=== PATIENT | female | born 1960 | race Caucasian/White ===

== ENCOUNTER 2023-06-04 08:01 | Emergency (ER) | payer BC, SELFPAY ==
[2023-06-04 08:09] VITALS: BP 190/110; PULSE 68; RESP 20; O2SAT 97; BMI 25.0
--- NOTE | 2023-06-04 08:19 | ED.EYEPROB1 ---
HPI - Eye Problem General Chief complaint: Eye Problems Stated complaint: EYE INFECTION , RIGHT EYE Time Seen by Provider: 06/04/23 08:15 Source: patient Mode of arrival: walk-in Limitations: no limitations History of Present Illness HPI Narrative: 63-year-old female presents for redness and drainage from the right eye. No trauma or foreign body. She was around her grandchildren recently. No symptoms in the left eye. Her eye was matted shut yesterday morning when she woke up. Related Data Previous Rx's Medication Instructions Recorded sulfacetamide sodium 10 % eye drops 2 drp ophthalmic (eye) Q4H #15 mL 06/04/23 Allergies Allergy/AdvReac Type Severity Reaction Status Date / Time No Known Drug Allergies Allergy Verified 06/04/23 08:09 Review of Systems ROS Narrative A ten point review of systems is negative except as noted above. PFSH PFSH Social History Smoking status: Heavy tobacco smoker Exam Narrative Exam Narrative: Nurses note and vital signs reviewed and patient is not hypoxic. General: The patient appears well and in no apparent distress. Patient is resting comfortably on cart. Skin: Warm, dry, no pallor noted. There is no rash noted. Head: Normocephalic, atraumatic Eye: left eye appears normal. Right conjunctiva is injected and she has a small amount of drainage. Extraocular movements are intact. Ears, Nose, Mouth, and Throat: oral mucosa is moist. Nares patent. Cardiovascular: Regular Rate and Rhythm Respiratory: Patient is in no distress, no accessory muscle use, lungs are clear to auscultation, no wheezing, rales or rhonchi Back: non-tender GI: nontender Musculoskeletal: no joint swelling Neurological: A&O, normal speech Psychiatric: Cooperative Constitutional Vital Signs, click to edit/add: Last Vital Signs Pulse 68 06/04/23 08:09 Resp 20 06/04/23 08:09 BP 190/110 H 06/04/23 08:09 Pulse Ox 97 06/04/23 08:09 O2 Del Method Room Air 06/04/23 08:09 Course Vital Signs Vital signs: Vital Signs Pulse Rate 68 06/04/23 08:09 Respiratory Rate 20 06/04/23 08:09 Blood Pressure 190/110 H 06/04/23 08:09 Pulse Oximetry 97 06/04/23 08:09 Oxygen Delivery Method Room Air 06/04/23 08:09 Pulse Rate 68 06/04/23 08:09 Respiratory Rate 20 06/04/23 08:09 Blood Pressure 190/110 H 06/04/23 08:09 Pulse Oximetry 97 06/04/23 08:09 Oxygen Delivery Method Room Air 06/04/23 08:09 MDM - Eye Problem MDM Narrative Medical decision making narrative: my clinical impressions that she has conjunctivitis. Treatment diagnosis and follow-up were discussed with the patient. Differential Diagnosis Differential diagnosis: Likely corneal abrasion, conjunctivitis, hyphema and subconjunctival hemorrhage Discharge Plan Discharge Chief Complaint: Eye Problems Clinical Impression: Bacterial conjunctivitis Patient Disposition: Home, Self-Care Time of Disposition Decision: 08:18 Condition: Good Mode of Transportation: Private Vehicle Prescriptions / Home Meds: New sulfacetamide sodium 10 % drops 2 drp ophthalmic (eye) Q4H Qty: 15 0RF Stand Alone Forms: Portal Instructions Referrals: Physician,Non-Staff, MD [Primary Care Provider] - 1 week
== END 2023-06-04 08:36 | disposition home or self-care (01) ==
PROVIDERS: Emergency Provider Emergency Medicine
DX: H10.9 Unspecified conjunctivitis (principal); F17.210 Nicotine dependence, cigarettes, uncomplicated
CPT/HCPCS: 99282

== ENCOUNTER 2023-09-26 06:58 | Outpatient (OUT) | payer BC, SELFPAY ==
[2023-09-26 09:42] LABS: Basophils Percent Auto 0.7 % (0.2-2.0); Eosinophils Absolute Auto 0.1 10^3/uL (0.0-0.7); Eosinophils Percent Auto 1.3 % (0.9-7.0); Hematocrit 41.5 % (36.0-48.0); Hemoglobin 14.4 g/dL (12.0-16.0); Immature Granulocytes Abs Auto 0.01 10^3/uL (0.00-0.03); Immature Granulocytes Pct Auto 0.2 % (0.0-0.5); Lymphocytes Absolute Auto 2.5 10^3/uL (1.2-3.8); Mean Corpuscular HGB Conc 34.7 g/dL (29.9-35.2); Mean Corpuscular Hemoglobin 31.8 pg (26.7-34.0); Mean Corpuscular Volume 91.6 fL (81.0-99.0); Mean Platelet Volume 10.8 fL (9.5-13.5); Monocytes Absolute Auto 0.3 10^3/uL (0.3-0.8); Monocytes Percent Auto 6.2 % (1.7-12.0); Neutrophils Absolute Auto 2.5 10^3/uL (1.4-6.5); Neutrophils Percent Auto 45.6 % (43.0-75.0); Platelet Count 190 10^3/uL (150-450); Red Blood Count 4.53 10^6/uL (4.20-5.40); Red Cell Distribution Width 12.3 % (11.0-15.0); White Blood Count 5.5 10^3/uL (4.0-11.0)
[2023-09-26 10:19] LABS: Bilirubin Urine NEGATIVE (NEGATIVE); Blood Urine NEGATIVE (NEGATIVE); Clarity Urine CLEAR (CLEAR); Color Urine YELLOW (YELLOW); Glucose Urine UA NEGATIVE (NEGATIVE); Ketones Urine NEGATIVE (NEGATIVE); Leukocyte Esterase Urine NEGATIVE (NEGATIVE); Nitrite Urine NEGATIVE (NEGATIVE); Protein Urine 30 mg/dL (NEG/TRACE); Specific Gravity Urine 1.025 (1.005-1.025); Urobilinogen Urine 0.2 EU/dL (0.2-1.0)
[2023-09-26 10:24] LABS: Urine Microscopic Indicated YES
[2023-09-26 10:26] LABS: Estimated Average Glucose 160 mg/dL; Glycohemoglobin A1C 7.2 % (4.5-6.2)
[2023-09-26 10:29] LABS: Bacteria Urine NONE SEEN #/HPF (NONE SEEN); Mucus Urine NONE SEEN (NONE SEEN); RBC Urine NONE SEEN #/HPF (0-2); Squamous Epithelial Cell Urine FEW #/LPF (NONE/RARE); WBC Urine NONE SEEN #/HPF (NONE SEEN)
[2023-09-26 11:11] LABS: Alanine Aminotransferase 67 U/L (14-59); Albumin Level 3.6 g/dL (3.4-5.0); Alkaline Phosphatase 101 U/L (46-116); Anion Gap 7.3; Aspartate Amino Transferase 31 U/L (15-37); BUN Creatinine Ratio 14.8; Bilirubin Total 0.4 mg/dL (0.2-1.0); Calcium 9.5 mg/dL (8.5-10.1); Carbon Dioxide 33.5 mmol/L (21.0-32.0); Chloride 99 mmol/L (98-107); Chol HDL Ratio 8.4; Cholesterol 285 mg/dL (<=200); Estimated GFR (African America >60 (>=60); Estimated GFR (Non-African Ame >60 (>=60); Globulin 3.7 g/dL; Glucose 161 mg/dL (74-106); HDL Cholesterol 34 mg/dL (40-60); Potassium 3.8 mmol/L (3.5-5.1); Sodium 136 mmol/L (136-145); Total Protein 7.3 g/dL (6.4-8.2); Triglycerides 379 mg/dL (<=150); VLDL CHOLESTEROL 75.8 mg/dL
[2023-09-26 12:14] LABS: Creatinine Urine Random 171.93 mg/dL (20.00-300.00); Microalbum Creatinine Ratio Ur 154.7 mg/g (0.0-29.9); Microalbumin Urine Random 26.6 mg/dL (<=30.0)
--- OUTSIDE RECORDS SUMMARY | 2023-10-01 07:00 | XMS_ITS | CCD ---
Author Name Unknown Address [address] [place] [address] Organization [facility] Care Team Providers Care Manager Office Name Role Phone House, Sr Evan Lu Primary Care Provider JOSE MIGUEL, SR EVAN Lu Primary Care Unavailable MAGDALENO RIOS Admitting Unavailable MAGDALENO RIOS Attending Unavailable Evan Gillespie Primary Care Physician Douglas, Orlando Boothe Admitting Unavailable Douglas, Orlando Boothe Attending Unavailable Douglas, Orlando Boothe Referring Unavailable Areli, Cameron Azul Admitting Unavailable Areli, Cameron Azul Attending Unavailable Areli, Cameron Azul Referring Unavailable JOSE MIGUEL, DR MARADIAGA Admitting Unavailable JOSE MIGUEL, DR MARADIAGA Primary Care Unavailable WHITERIVER, DR MARADIAGA Consulting Unavailable WHITERIVER, DR MARADIAGA Attending Unavailable WHITERIVER, DR MARADIAGA Primary Care Unavailable WHITERIVER, DR MARADIAGA Consulting Unavailable WHITERIVER, DR MARADIAGA Attending Unavailable WHITERIVER, DR MARADIAGA Admitting Unavailable JOSELITO, DR JOSH Saenz Consulting Unavailable PARESH ROCHA Attending Unavailable Medications Current Medications Medication Drug Class(es) Dates Sig (Normalized) Sig (Original) acetaminophen 325 mg / HYDROcodone bitartrate 5 mg oral tablet (4 sources) Opioid Agonist Start: 09-10-2020 End: 09-11-2020 take 1 tablet by mouth every six hours as needed for pain 1 tablet, Oral, EVERY 6 HOURS PRN, Pain Moderate (4-6), Starting 09/10/20 at 2046 Maximum dose of acetaminophen is 4000 mg from all sources in 24 hours. Start: 09-10-2020 End: 09-10-2020 HYDROcodone-acetaminophen (N ORCO) 5-325 MG per tablet 1 tablet Start: 09-07-2020 End: 09-11-2020 take 1 tablet by mouth twice daily HYDROcodone-acetaminophen (NORCO) 5-325 MG per tablet Indications: Lumbar radiculopathy , Lumbar spondylosis , Weakness Take 1 tablet by mouth 2 times daily for 20 days. 40 tablet 0 09/07/2020 09/11/2020 Discontinued (Stop Taking at Discharge) acetaminophen 325 mg / oxyCODONE hydrochloride 5 mg oral tablet (1 source) Opioid Agonist Start: 09-11-2020 End: 09-25-2020 take 1 tablet by mouth every six hours as needed for pain, then take 1 tablet by mouth as needed for pain oxyCODONE-acetaminophen (PERCOCET) 5-325 MG per tablet Indications: Postoperative pain Take 1 tablet by mouth every 6 hours as needed for Pain for up to 14 days. Intended supply: 7 days. Take lowest dose possible to manage pain 28 tablet 0 09/11/2020 09/25/2020 Active cephalexin 500 mg oral capsule (1 source) Cephalosporin Antibacterial Start: 09-11-2020 End: 09-18-2020 take 1 capsule by mouth three times daily cephALEXin (KEFLEX) 500 MG capsule Take 1 capsule by mouth 3 times daily for 7 days 21 capsule 0 09/11/2020 09/18/2020 Active cyclobenzaprine hydrochloride 10 mg oral tablet (2 sources) Muscle Relaxant Start: 09-07-2020 End: 09-20-2020 take 10 mg by mouth three times daily as needed for muscle spasms 10 mg, Oral, 3 TIMES DAILY PRN, Muscle spasms, Starting Thu09/10/20 at 2045 1 ml dexamethasone phosphate 4 mg/ml injection (1 source) Corticosteroid Start: 09-10-2020 dexamethasone (DECADRON) injection 4 mg 0.4 ml enoxaparin sodium 100 mg/ml prefilled syringe (1 source) Low Molecular Weight Heparin Start: 09-11-2020 enoxaparin (LOVENOX) injection 40 mg Start: 09-11-2020 enoxaparin (LO VENOX) injection 40 mg gabapentin 300 mg oral capsule (3 sources) Anti-epileptic Agent Start: 09-07-2020 End: 09-10-2020 take 300 mg by mouth three times daily 300 mg, Oral, 3 TIMES DAILY, First dose on Thu09/10/20 at 2115 metFORMIN hydrochloride 500 mg oral tablet (2 sources) Biguanide Start: 09-11-2020 End: 09-11-2020 take 500 mg by mouth twice daily at mealtime 500 mg, Oral, 2 TIMES DAILY WITH MEALS, First dose on Thu09/11/20 at 0800 morphine (PF) injection 2 mg (1 source) Start: 09-10-2020 morphine (PF) injection 2 mg polyethylene glycol 3350 10954 mg powder for oral solution (1 source) Osmotic Laxative Start: 09-10-2020 polyethylene glycol (GLYCOLAX) packet 17 g Promethazine (1 source) Phenothiazine Start: 09-10-2020 promethazine (PHENERGAN) tablet 12.5 mg 24 hr propranolol hydrochloride 60 mg extended release oral capsule (3 sources) beta-Adrenergic Todd Start: 06-24-2020 End: 09-11-2020 take 60 mg by mouth once daily 60 mg, Oral, DAILY, First dose on Thu09/11/20 at 0900 Do not crush or break. End: 09-10-2020 take 1 tablet by mouth three times daily propranolol (INDERAL) 10 MG tablet Take 10 mg by mouth 3 times daily 0 09/10/2020 Discontinued (Therapy completed) sennosides, assisted 8.6 mg oral tablet (1 source) Start: 09-11-2020 End: 09-11-2021 take 2 tablets by mouth twice daily senna (SENOKOT) 8.6 MG tablet Take 2 tablets by mouth 2 times daily 120 tablet 11 09/11/2020 09/11/2021 Active 1000 ml sodium chloride 9 mg/ml injection (4 sources) Start: 09-10-2020 End: 09-11-2020 0.9 % sodium chloride infusion Start: 09-10-2020 sodium chlorid e flush 0.9 % injection 10 mL Completed/Discontinued Medications Medication Drug Class(es) Dates Sig (Normalized) Sig (Original) 2 ml fentaNYL 0.05 mg/ml injection (1 source) Opioid Agonist Start: 0 End: 0 fentaNYL (SUBLIMAZE) injection 50 mcg 1 ml HYDROmorphone hydrochloride 1 mg/ml cartridge (1 source) Opioid Agonist Start: 0 End: 0 HYDROmorphone (DILAUDID) injection 0.5 mg ketorolac tromethamine 10 mg oral tablet (1 source) Nonsteroidal Anti-inflammatory Drug, Cyclooxygenase Inhibitor End: 0 take 1 tablet by mouth every six hours as needed for pain ketorolac (TORADOL) 10 MG tablet Take 10 mg by mouth every 6 hours as needed for Pain 0 09/11/2020 Discontinued (Stop Taking at Discharge) LORazepam 0.5 mg oral tablet (1 source) Benzodiazepine Start: 0 End: 0 LORazepam (ATIVAN) tablet 1 mg methylPREDNISolone 4 mg oral tablet (1 source) Corticosteroid Start: 0 End: 0 methylPREDNISolone (MEDROL DOSEPACK) 4 MG tablet Indications: Lumbar radiculopathy , Lumbar spondylosis , Weakness Take by mouth. 1 kit 0 09/07/2020 09/11/2020 Discontinued (Stop Taking at Discharge) 12 hr orphenadrine citrate 100 mg extended release oral tablet (1 source) Muscle Relaxant Start: 0 End: 0 take 1 tablet by mouth once daily orphenadrine (NORFLEX) 100 MG extended release tablet Take 1 tablet by mouth daily 0 09/06/2020 09/11/2020 Discontinued (Stop Taking at Discharge) Problems Problem Classification Problem Date Documented Date Episodic/Chronic Other nervous system disorders (1 source) Postoperative pain ; Translations: [Postoperative pain] Episodic Other screening for suspected conditions (not mental disorders or infectious disease) (4 sources) Encounter for screening mammogram for malignant neoplasm of breast; Translations: [ENC SCR MAMMO MALIG NEOPLASM BREAST] Onset: 09-05-2022 Episodic Paralysis (4 sources) Weakness of right leg; Translations: [Right leg weakness] Onset: 09-10-2020 09-10-2020 Spondylosis; intervertebral disc disorders; other back problems (1 source) Prolapsed lumbar intervertebral disc; Translations: [Protruded lumbar disc] Chronic Results Test Name Value Interpretation Reference Range Facility MG MAMM SCREEN 3D AGNELICA CADon 09-05-2022 MG MAMM SCREEN 3D ANGELICA CAD Patient: JORDY DUNNE Exam Date: 09/05/2022 : 1960 Gender:F Ordering : DR EVAN GILLESPIE D.O. Admission #: [id number] Family : Order #: [id number] CLICK HERE TO VIEW EXAM RADIOLOGY REPORT PROCEDURE: MAMMOGRAM SCREENING 3D BILATERAL CAD COMPARISON: MAMMO ANGELICA SCREEN, 07/08/2013. MAMMO ANGELICA SCREEN, 01/08/2009. INDICATIONS: Screening mammography Calculator Name NCI Breast Cancer Risk Assessment Tool 5 Year Breast Cancer Risk Not Reported. Lifetime Breast Cancer Risk Not Reported. Personal Breast Cancer No Personal Ovarian Cancer No Treatments None Family Cancers None LOCATION: [facility] BREAST COMPOSITION: Scattered areas fibroglandular density. FINDINGS: DIAGNOSTIC CATEGORY 2--BENIGN FINDING: RIGHT BREAST: No significant suspicious finding. Scattered benign-appearing lymph nodes are present. No significant change has occurred. LEFT BREAST: No significant suspicious finding. No significant change has occurred. RECOMMENDATIONS: ROUTINE MAMMOGRAM AND CLINICAL EVALUATION IN 12 MONTHS. PLEASE NOTE: A NORMAL MAMMOGRAM DOES NOT EXCLUDE THE POSSIBILITY OF BREAST CANCER. A CLINICALLY SUSPICIOUS PALPABLE LUMP SHOULD BE BIOPSIED. Dictated by: Josh Rosales M.D. on 09/08/2022 at 13:27 Approved by: Josh Rosales M.D. on 09/08/2022 at 13:34 Normal [facility] Coding Summary.on 06-02-2022 Coding Summary. [id number] G h0bWw+PGhlYWQ+SD4TFMH wQ88txWCkcQ5IR5zNAJ7F CGMVQTBTOF5XBX7myUE8E NmgO5DlrbEn EapkpSGgHS94ARi9NMY5n ZyfXHpirQ0llOSdL0f5Wz UdSL34hW10XDlmZOItJtG 3LjZpbjsgbWFy S6rvXhWrsZWgBhi+PHRhY mxlIHdpZHRoPScxMDAlJy NlsNgqEH6fXk7eFDXoMXY vbGxhcHNlOiBj a7tkYDObVRahCD5dnAolI 9BiyDR9TQOlf7u5Pm95mJ I+YRFlUCX4jWbkYEtag99 2UjCaj9jlUQD3 kWVsHDnqYOZ2Y25dh2H4O QEcEIXkGVH2oVE5vD1kjD vhuzomO1IuxIFyKeM8PVB 8pBFmkG6kjEhw pzqtxQ1rQdu+K57FEY8IP HGSTH9ZJre2Q2PrGmcazE I+NL25UYZhWZ05nSLfxTS ij0tzpPx0LeOx SMOgTIL0lQilFOqcx7QwI IBbC08ysXTes6N0CPTjrO yswKUzQiNscKJ4mQ2qGOe aguhxf2vdrzkq Rwcjb2qlcl44fZ85J31tQ XtoIBZtVTP4YDMvMRJdjC fjtu7hiE8nRm0+DYhdg4p vp2uxeTt2ZiUp FBAgrgOwpPfrDWL6c9SbP k96W5HaeGmkt2UzFlt0zc 97nPCpq7H0dZX5ATwgIWK yeX5aBYcuLqX5 FSLtEwIeoC98uJVeGJmgZ h2bjFgekArjIF4bQXHxry kpVXBinC8xKQKqdOYjxIq nKU4hFCWmfltd f943ExIpMPB1BPYhwFAvH 1LyoG3jEwJiYTIhESGsO9 YlmDKrGJnfK629BBbjVvE 4WDSnydVmJ0Ss QYMpvWqjYcN0g8K6Po4Iu 3SgvqhgALR3XHcyLDM7Jo LfJbTnNyN8G6PmJny3FVV eaAwmZQ0jX1Oa MLLhdoxmfbhdhUZ2SDHpQ EDvuC20gAHcTSdcPw7yp2 X0n116PVXkKKMacA38Xf6 udDogMTBwdCBU iM3ohezzb1pnrqutDkEcC CJqAPk8EEj8AWRyiVphJo NnGGN6WlY4NPQ1zSOjxO9 koMhjefxddM5q Oyc+R64qjN2vDTT5PMR0y nplMTJqzsDwQT23KT50R0 RyPjwvdGFibGU+PGRpdiB aaCwkFJ7wQkPu o2kfg5JhWNnaT2UbGIDhL BxjLdw4PGUhTDR8bTR7oC 4dRFIcQGrtn0B5jSK9J1A lkoCrzi2sn9kh FEFwFPltL26dxNJgv5H7P ZXzgTX0BXPkzYvuCzWkrS 93Oyc+KSXlmLqsy3VaTyj qb5epo3rwjOo8 JzXbOEYwbaCmiUdkBVW8x 2MgPq30D51rTPhjWRIeQN RuXFEcALKasZzccf2llQ0 wIi8+PGNvbCB3 gSY0oJ6cBWByWsT9DVtfF 163MeJsbFKqKlnej4tdj7 bboYx1YyVwPKIoqeQqkSn zJDQ6z4IqAx74 N95iMOcqWKOhNRTzBJCgA IKxpZdjbi8hcK2uMp8+PC 9zv7xmbg33cN69jAK+PHR fYMA8pXdlLSxa RWFwzB2uIOjdYiM7ADNiI uCnzH82bNVqHFduVr8ujL ejqBbzSS8uWGDqhrpjt10 5VrDvq4vkUZKz cTVlMPgoQTO2N04zw3S4S UXjGQAbNDW3xMW2pV2ivD lnbjogbGVmdDsgdmVydGl kWVveLZozL085 IHRvcDsnPlBhdGllbnQgT iMqPUt0T7TuMsf4DLUwwN uxEZ0baBZjXKidXj6fkCx coFqnLS7uPFFd hzxqh019VrDey9elWUUvn GPvWJyzNKF8U27fs3Y6NP IoPOFmAVZ7xZX9fV8hrOo nbjogbGVmdDsg akEhrIkkTHvtFInjC649R HRvcDsnPkJpcnRoIERhdG N7YE23KG44ePRsp3H4nQK 8F1PiMGPxsgvv kvzvmIQ2YCVrUCNliL23A e3yhVosMw8zLUVmRSN8EO FhxYAiP7NvlO5dGaClSBW aUFJmA9XlaYFn WKseC223FFvfSaT1SENgl xExI4SdPXQaiHbdJuZ7q7 H7Ar3WQ7S3OE33FR49pMT ag6L1lZK4O9Hm MJOlfxkampfrrXI1ZKCnO FDicL07Yk6mzWjkGf2oON YcACW9ZHOtwFFaC8QlgR3 yOiAjMDAwMDAw I8OapIOoLMqkF967OAngI fC7MDEqcjCmD0NeELWciR hsZoO4o8N9Pa4ZHIk6RE2 4SX99kTJod1V6 aUL5W4BzNZPkwezfpwiby EX0AKDiBAQahE92Ih0zkQ jxGq4sSOUdARX1ZRDhbLG pF4YxsU2fJoPi XDLlNKGpC1PezYRiPHsuV 190SDnhPsF2PTXuclFyL6 QnYXXewOghHwU9g8B0Ya7 WMTHhQA33HXY7 nVI9PC71QT53I7FaRraoj GFibGU+PHRhYmxlIHdpZH RoPScxMDAlJyBzdHlsZT0 aFe6nSCWcDRWj cMnjaAVvFvEem2pgVTAeN XluAD2msHdoA9GakRK8SZ Kgz5i0Do16F77uA2KuiBR +FFRnsAX4mZE1 jD8nDgMrCvW5RXbvW907J gAxuSPeJxqwx9kqq3mwzQ p6XbZ1VARdeiXxkPyxCCQ 8c4BxKm81O04g IHdpZHRoPSIxNSUiIHZhb Zdnid2loF8rGw9+PGNvbC E9dKA3zV7zEaNmSfV4LGk aR649EzTdiLBh Hpnad9uld3agnQy7WnBcB FCoxxAdeToiESM6o1RbLm 16V2ZagQhxh8DjPmo7il4 4pAOaq6K9uKD4 I0MdVGDdgodysPKjzLjbM L5sNXQxjvpuULMorS1kDZ XsG0t3KzNbYtJ2XIurV8B bgxD5TAVmbPQx TVcuAOP0E55wy8C0LGYnR TAkPCQ2aGR8mE6qbLgevt ogbGVmdDsgdmVydGljYWw rMXzoQ627IMFh iHwbPFEqsR6yEFNvdCLuu MokMX3yEXRmtldoGv7EW6 JFLCBMVUNSRVRJQSBNPC9 8LM28fIPij2N9 fIH9S1KyXHPwoicbeovqv BE7SFSvXTKmmP23uQLaNX cwVu7bo1F6g838SPMuZPJ qcC07Mp1jnOmx CSDkcIQIuA0xzbiei5dsp ryjYpXfUQYkMTp1EJv9AQ AwqZkiLkKbBTP1QvZ3RTA 4kKFhxF7vbMsf jgrzqT8cIof+MDkvMTEvM Ys9HCvoiBQ+PRSmGSG9yJ xkTUydNLQpkP1gVEObC6p 5RrIzPlY0CIcw A2ZcKWBwidpbMg14oC8oJ jLjSqT8DQtrX5RjqpZ7KQ AbzQLpTCsnEGR9T70nm2C 3TRMbIWFbIUS1 uHL1eD9jdEcbvpiygFHag DsgdmVydGljYWwtYWxpZ2 46IHRvcDsnPjYxIFllYXJ aZI68TV39gYRb c3V4eMZ7J0DzUYQkgokjw aphnPF4GRDpLUGnxS71cF JjBIjeYn2pb7Y3c187GDR kFOHbpG02Gz0n sVmhPFXouFKFkD7ujwakz 1spzumiOaOyPJImSVw2TG z6XWBhrImeXjPpYBM4LuR 3FGW1hTIjwE0k lSubkxjjdU7qDoi+RmVtY YjwYG38DH59rFCbt8T7iW Z0A4EpEVUzmjjxpygopPG 9LRIpVMJauU50 eSRmMMkmPq5vc1Q4o034L BDnVLJvsM97Wx1wtZoaQL MyiTFYzC8qgburk2jauzt gIzAwMDAwMDt0 LQl6FBDmmHwvKrOmSQR1M eH6DPD0iBKeyN7nuSjxww ycmV7gPpt+Y8R9dMI3ySR udDwvdGQ+PC90 yl48H9RgXcolRso6NNKeN OC7pUS1wZ2dZNLgWLszx1 Y4yMY1H4XpjmZcfk6rm3j bJFVvJAwiI76b vNNeh6Y2NSBtoHU7LSEfl XlzIlLojM62Dgv+PGNvbG ygy7NsSknnp4owh1oxtYa 9IjMwJSIgdmFs pZweCIJ3x6LnPn07Q49aZ HdpZHRoPSIzMCUiIHZhbG pedw5uwT6jPg0+PGNvbCB 7hSX8dL3kNxOg XmK3XEfuE664ObQveIBqA bfqr0czl3gkqSw1WxYgDX JeirTwhMvhLJK0i0JlRv9 2L9FdsCjdi2Xb Bpz1zb54tQJhb2Q9rFV2Z 3BhZGRpbmctbGVmdDogMC 2yOSPqezpbZLVvnK1pBIU sX6h1LlYrZpN5 OYlgR3DqjxL8IPGunILfB DHadTEIrJ3psapvc6wxca kyYsTcUKXsNAt3MAp6RPI saWduOiBsZWZ0 UuG1GXS4wCWqkT2feFstk klgnY0qFnq+KTd8r2fdmA RuJT6otXH0ZF95IL63cKJ lq0E0gDV4I2Nj KTPgoqxwzitfhRG5CVPiZ TZmhN37We9efJveAs7pAS DoGHQ7LDLylAOhJ6RthP8 yOiAjMDAwMDAw E1QgpHHpXInbR502DAblK uB7RMLwriXgB1SpAMNaiV drZjA0e1P3Cu7PEE32HL5 4XF63jWVnk0B5 hPI3W0YhKAXjavdyitoxd OZ2OFQaSJCoaN82Qm9wbF pmMh3zUNYuUZK2GEYcbLK wS7FrbY4hCsSq VFWsOEBkO0ZxaICjWCfrS 450BKqxIuL6ZFBfilYtO7 CiYFRckRpeXzX8h5V2Hf6 LYs59DZ28JD04 mMLwu8G4vRW7U6LxXWWwi lybprhooGU8OUAaWRMetP 44Db0nsWxuGx7lGPUnBNE 3LNErvIRvF0Wt dU8wZdMmVUJdZRXqV4Nmf CFsCBhsH699UHvmTiE4SI LbkiCaB9YkNXMmgKqpMuC 4w1B8Ay4NVXhu hsn5R5XxTjxbzAZ+PC90Y QAeJE53bOCjqPGtu5kvbX t3NeZpFXGlKFR6wFtdMNf wi7QnFMNvJ63u bGFw (more content not included)... Normal [facility] Auto Diffon 05-30-2022 Basophils/100 WBC (Bld) 0.6 % Normal 0.0-2.0 [facility] Comment on above: Order Comment: Order Added by Discern Expert. Performed By: #### 7 [id number], [id number], [id number], [id number], [id number] #### [facility] [address] [place] [address] Basophils/Leukocytes Auto (Bld) [Pure # fraction] 0.0 E9/L Normal 0.0-0.2 [facility] Comment on above: Order Comment: Order Added by Discern Expert. Performed By: #### 7 [id number], [id number], [id number], [id number], [id number] #### [facility] [address] [place] [address] Eosinophils/100 WBC (Bld) 1.3 % Normal 0.0-8.0 [facility] Comment on above: Order Comment: Order Added by Discern Expert. Performed By: #### 7 [id number], [id number], 1282501, 0142874, [id number] #### [facility] [address] [place] [address] Eosinophils/Leukocyte s Auto (Bld) [Pure # fraction] 0.1 E9/L Normal 0.0-0.5 [facility] Comment on above: Order Comment: Order Added by Discern Expert. Performed By: #### 7 [id number], 8761051, 7801765, 4928108, [id number] #### [facility] [address] [place] [address] Lymphocytes/100 WBC (Bld) 32.4 % Normal 14.0-50.0 [facility] Comment on above: Order Comment: Order Added by Yosvany Expert. Performed By: #### 7 [id number], 6575783, 6446382, 9771371, [id number] #### [facility] [address] [place] [address] Lymphocytes/Leukocyte s Auto (Bld) [Pure # fraction] 2.1 E9/L Normal 1.0-4.0 [facility] Comment on above: Order Comment: Order Added by Yosvany Expert. Performed By: #### 7 [id number], 8411334, 5282452, 2819205, [id number] #### [facility] [address] [place] [address] Monocytes/100 WBC (Bld) 7.6 % Normal 4.0-14.0 [facility] Comment on above: Order Comment: Order Added by Discern Expert. Performed By: #### 7 [id number], 9224813, 2607184, 1160732, [id number] #### [facility] [address] [place] [address] Monocytes/Leukocytes Auto (Bld) [Pure # fraction] 0.5 E9/L Normal 0.2-1.0 [facility] Comment on above: Order Comment: Order Added by Yosvany Expert. Performed By: #### 7 [id number], 7159383, 9316307, 2144403, [id number] #### [facility] [address] [place] [address] Neutrophils/100 WBC (Bld) 58.1 % Normal 36.0-75.0 [facility] Comment on above: Order Comment: Order Added by Discern Expert. Performed By: #### 7 [id number], 4709632, 8992722, 4333472, [id number] #### [facility] [address] [place] [address] Neutrophils/Leukocyte s Auto (Bld) [Pure # fraction] 3.7 E9/L Normal 2.0-7.5 [facility] Comment on above: Order Comment: Order Added by Discern Expert. Performed By: #### 7 [id number], 4711182, 9092899, 5464009, [id number] #### [facility] [address] [place] [address] BMPon 05-30-2022 Anion gap [Moles/Vol] 11 mmol/L Normal 6-16 [facility] Comment on above: Performed By: #### 7 [id number], 8152030, 8126607, 8738542, [id number] #### [facility] [address] [place] [address] Calcium [Mass/Vol] 9.1 mg/dL Normal 8.9-11.1 [facility] Comment on above: Performed By: #### 7 [id number], 1632958, 8476800, 8397865, [id number] #### [facility] [address] [place] [address] Chloride [Moles/Vol] 102 mmol/L Normal 101-111 [facility] Comment on above: Performed By: #### 7 [id number], 1824968, 7869738, 1565616, 29349405 #### [facility] [address] [place] [address] CO2 [Moles/Vol] 28 mmol/L Normal 21-31 [facility] Comment on above: Performed By: #### 7 [id number], 0665355, 5118963, 9756515, 30082745 #### [facility] [address] [place] [address] Creatinine [Mass/Vol] 0.7 mg/dL Normal 0.5-1.3 [facility] Comment on above: Performed By: #### 7 [id number], 7277096, 9285322, 9419784, 07370973 #### [facility] [address] [place] [address] Glucose [Mass/Vol] 115 mg/dL Normal 55-199 [facility] Comment on above: Result Comment: If t his glucose result represents a fasting glucose, interpretation should refer to the following reference range: 55-99 mg/dL Performed By: #### 7 [id number], 7646171, 4732501, 5272345, 52264638 #### [facility] [address] [place] [address] Potassium [Moles/Vol] 4.1 mmol/L Normal 3.5-5.3 [facility] Comment on above: Performed By: #### 7 [id number], 6268321, 3988365, 8248777, [id number] #### [facility] [address] [place] [address] Sodium [Moles/Vol] 137 mmol/L Normal 135-145 [facility] Comment on above: Performed By: #### 7 [id number], 8822050, 6645283, 8596898, 86643362 #### [facility] [address] [place] [address] Urea nitrogen [Mass/Vol] 14 mg/dL Normal 5-21 [facility] Comment on above: Performed By: #### 7 [id number], 0556054, 0482416, 1680171, 63598941 #### [facility] [address] [place] [address] Urea nitrogen/Creatinine [Mass ratio] 20 No Units Normal 10-20 [facility] Comment on above: Performed By: #### 7 [id number], 1726363, 0307997, 6913491, 37585704 #### [facility] [address] [place] [address] CBC w/ Auto Diffon Erythrocyte distribution width (RBC) [Ratio] 13.7 % Normal 10.9-14.2 [facility] Comment on above: Performed By: #### 7 [id number], 4251045, 7303788, 9304762, 60015355 #### [facility] [address] [place] [address] Hematocrit (Bld) [Volume fraction] 41.6 % Normal 34.0-46.0 [facility] Comment on above: Performed By: #### 7 [id number], 5185099, 3757749, 2217163, 43313175 #### [facility] [address] [place] [id number] Hemoglobin (Bld) [Mass/Vol] 14.7 g/dL Normal 12.0-16.0 [facility] Comment on above: Performed By: #### 7 [id number], 4094102, 3810923, 6934547, 01378233 #### [facility] [address] [place] [address] MCH (RBC) [Entitic mass] 32.5 pg Normal 27.0-34.0 [facility] Comment on above: Performed By: #### 7 [id number], 7664640, 7944020, 3605685, 05244592 #### [facility] [address] [place] [address] MCHC (RBC) [Mass/Vol] 35.4 g/dL Normal 31.4-36.0 [facility] Comment on above: Performed By: #### 7 [id number], 7494399, 5190710, 3942752, 75068187 #### [facility] [address] [place] [address] MCV (RBC) [Entitic vol] 91.8 fL Normal 80.0-100.0 [facility] Comment on above: Performed By: #### 7 [id number], 8753582, 2728331, 3906272, 17408006 #### [facility] [address] [place] [address] Platelet mean volume (Bld) [Entitic vol] 9.3 fL Normal 6.4-10.8 [facility] Comment on above: Performed By: #### 7 [id number], [id number] #### [facility] [address] [place] [address] Platelets (Bld) [#/Vol] 181.0 E9/L Normal 150.0-500.0 [facility] Comment on above: Performed By: #### 7 [id number] #### [facility] [address] [place] [address] RBC (Bld) [#/Vol] 4.5 E12/L Normal 4.3-5.9 [facility] Comment on above: Performed By: #### 7 [id number] #### [facility] [address] [place] [address] WBC corrected for nucl RBC Auto (Bld) [#/Vol] 6.4 E9/L Normal 4.0-11.0 [facility] Comment on above: Performed By: #### 7 [id number], [id number], [id number] #### [facility] [address] [place] [address] CHEMISTRYOrdered By: SYSTEM SYSTEM on 05-30-2022 Anion gap [Moles/Vol] 11 mmol/L Normal 6 - 16 mEq/L [facility] Calcium [Mass/Vol] 9.1 mg/dL Normal 8.9 - 11. 1 mg/dL [facility] Chloride [Moles/Vol] 102 mmol/L Normal 101 - 1 11 mmol/L [facility] CO2 [Moles/Vol] 28 mmol/L Normal 21 - 31 mmol/L [facility] Creatinine [Mass/Vol] 0.7 mg/dL Normal 0.5 - 1.3 mg/dL [facility] GFR/1.73 sq M.predicted among blacks MDRD (S/P/Bld) [Vol rate/Area] mL/min/1.73 m2 Normal >=59mL/min/1. 73 m2 [facility] S GFR/1.73 sq M.predicted among non-blacks MDRD (S/P/Bld) [Vol rate/Area] mL/min/1.73 m2 Normal >=59mL/min/1. 73 m2 [facility] [place] [place] Chem S Glucose [Mass/Vol] 115 mg/dL Normal 55 - 199 mg/dL [facility] Potassium [Moles/Vol] 4.1 mmol/L Normal 3.5 - 5.3 mmol/L [facility] Sodium [Moles/Vol] 137 mmol/L Normal 135 - 145 mmol/L [facility] Urea nitrogen [Mass/Vol] 14 mg/dL Normal 5 - 21 mg/dL [facility] Urea nitrogen/Creatinine [Mass ratio] 20 mg/mg Normal 10 - 20 [facility] CHEMISTRYOrdered By: Rubi jordan on 05-30-2022 HbA1c (Bld) [Mass fraction] 6.2 % High <=5.9% [facility] [place] [place] ChemAutoSS Consent for Treatmenton Consent for Treatment [id number] Normal [facility] HEMATOLOGYOrdered By: SYSTEM SYSTEM on 05-30-2022 Basophils/100 WBC (Bld) 0.6 % Normal 0.0 - 2.0 % [facility] HemeAutoSS Basophils/Leukocytes Auto (Bld) [Pure # fraction] 0.0 E9/L Normal 0.0 - 0.2 E9/L [facility]eAutoSS Eosinophils/100 WBC (Bld) 1.3 % Normal 0.0 - 8.0 % [facility] Eosinophils/Leukocyte s Auto (Bld) [Pure # fraction] 0.1 E9/L Normal 0.0 - 0.5 E9/L [facility]eAutoSS Lymphocytes/100 WBC (Bld) 32.4 % Normal 14.0 - 50.0 % [facility]eAutoSS Lymphocytes/Leukocyte s Auto (Bld) [Pure # fraction] 2.1 E9/L Normal 1.0 - 4.0 E9/L [facility]eAuto[facility] Monocytes/100 WBC (Bld) 7.6 % Normal 4.0 - 14.0 % [facility]eAuto[facility] Monocytes/Leukocytes Auto (Bld) [Pure # fraction] 0.5 E9/L Normal 0.2 - 1.0 E9/L [facility] Neutrophils/100 WBC (Bld) 58.1 % Normal 36.0 - 75.0 % [facility] Neutrophils/Leukocyte s Auto (Bld) [Pure # fraction] 3.7 E9/L Normal 2.0 - 7.5 E9/L [facility] HEMATOLOGYOrdered By: Boaz Topete on 05-30-2022 Erythrocyte distribution width (RBC) [Ratio] 13.7 % Normal 10.9 - 14.2 % [facility] Hematocrit (Bld) [Volume fraction] 41.6 % Normal 34.0 - 46.0 % [facility] Hemoglobin (Bld) [Mass/Vol] 14.7 g/dL Normal 12.0 - 16.0 gm/dL [facility] MCH (RBC) [Entitic mass] 32.5 pg Normal 27.0 - 34.0 pg [facility] MCHC (RBC) [Mass/Vol] 35.4 g/dL Normal 31.4 - 36.0 gm/dL [facility]eAuto[facility] MCV (RBC) [Entitic vol] 91.8 fL Normal 80.0 - 100.0 fL [facility] Platelet mean volume (Bld) [Entitic vol] 9.3 fL Normal 6.4 - 10.8 fL [facility] Platelets (Bld) [#/Vol] 181.0 E9/L Normal 150.0 - 500.0 E9/L [facility] RBC (Bld) [#/Vol] 4.5 E12/L Normal 4.3 - 5.9 E12/L [facility] WBC corrected for nucl RBC Auto (Bld) [#/Vol] 6.4 E9/L Normal 4.0 - 11.0 E9/L [facility] KulV3rxf 05-30-2022 HbA1c (Bld) [Mass fraction] 6.2 % High <=5.9 [facility] Comment on above: Performed By: #### 7 [id number] #### [facility] [address] [place] [address] XR Chest 2 Viewson 2 XR Chest 2 Views Exam Date/Time: 05/30/2022 08:10 EDT Reason for Exam: M75.42 Report IMPRESSION: NO EVIDENCE OF ACTIVE CHEST DISEASE. CLINICAL HISTORY: M75.42. Preop. COMMENT: The heart is normal in size. The mediastinum is unremarkable. The lungs appear clear. No infiltration nor pleural effusion is evident. FINAL REPORT Dictated: 05/30/2022 10:47 am Mike Oconnor M.D. Signed (Electronic Signature): 05/30/2022 10:47 am Signed by: Mike Oconnor M.D. Transcribed by: JODEE Technologist: HALEY Normal [facility] eGFRon 05-30-2022 GFR/1.73 sq M.predicted among blacks MDRD (S/P/Bld) [Vol rate/Area] mL/min/{1.73_m2} Normal >=59 [facility] Comment on above: Order Comment: Order added by Discern Expert. Result Comment: eGFR is race adjusted. AA=. Performed By: #### 7 [id number] #### [facility] [address] [place] [address] GFR/1.73 sq M.predicted among non-blacks MDRD (S/P/Bld) [Vol rate/Area] mL/min/{1.73_m2} Normal >=59 [facility] Comment on above: Order Comment: Order added by Discern Expert. Result Comment: [place] Worker arnulfo kidney disease could be indicated at eGFR's of less than 60 mL/min/1.73m2. Kidney failure is indicated at less than 15 mL/min/1.73m2. Performed By: #### 7 [id number] #### [facility] [address] [place] [address] Physician Orderon 05-08-2022 Physician Order [id number] Normal [facility] CBC AUTO DIFFon 11-11-2021 BASO # 0.0 103/ul Normal 0.0-0.1 [facility] Comment on above: Performed By: #### C BC #### [facility] [address] [place] [address] Dr. Farhat Mcneil Basophils/100 WBC (Bld) 0.6 % Normal 0.2-2.0 [facility] Comment on above: Performed By: #### C BC #### [facility] [address] [place] [address] Dr. Farhat Mcneil EO # 0.1 103/ul Normal 0.0-0.7 [facility] Comment on above: Performed By: #### C BC #### [facility] [address] [place] [address] Dr. Farhat Mcneil Eosinophils/100 WBC (Bld) 1.1 % Normal 0.9-7.0 [facility] Comment on above: Performed By: #### C BC #### [facility] [address] [place] [address] Dr. Farhat Mcneil Erythrocyte distribution width (RBC) [Ratio] 12.3 % Normal 11.0-15.0 [facility] Comment on above: Performed By: #### C BC #### [facility] [address] [place] [address] Dr. Farhat Mcneil Hematocrit (Bld) [Volume fraction] 43.6 % Normal 36.0-48.0 [facility] Comment on above: Performed By: #### C BC #### [facility] [address] [place] [address] Dr. Farhat Mcneil Hemoglobin (Bld) [Mass/Vol] 15.0 g/dL Normal 12.0-16.0 [facility] Comment on above: Performed By: #### C BC #### [facility] [address] [place] [address] Dr. Farhat Mcneil IG # 0.02 10e3/ul Normal 0.00-0.03 [facility] Comment on above: Performed By: #### C BC #### [facility] [address] [place] [address] Dr. Farhat Mcneil IG % 0.3 % Normal 0.0-0.5 [facility] Comment on above: Performed By: #### C BC #### [facility] [address] [place] [address] Dr. Farhat Mcneil LYMPH # 2.2 103/ul Normal 1.2-3.8 [facility] Comment on above: Performed By: #### C BC #### [facility] [address] [place] [address] Dr. Farhat Mcneil Lymphocytes/100 WBC (Bld) 31.0 % Normal 20.5-60.0 [facility] Comment on above: Performed By: #### C BC #### [facility] [address] [place] [address] Dr. Farhat Mcneil MANUAL DIFF REQ NO Normal [facility] Comment on above: Performed By: #### C BC #### [facility] [address] [place] [address] Dr. Farhat Mcneil MCH (RBC) [Entitic mass] 31.5 pg Normal 26.7-34.0 [facility] Comment on above: Performed By: #### C BC #### [facility] [address] [place] [address] Dr. Farhat Mcneil MCHC (RBC) [Mass/Vol] 34.4 g/dL Normal 29.9-35.2 [facility] Comment on above: Performed By: #### C BC #### [facility] [address] [place] [address] Dr. Farhat Mcneil MCV (RBC) [Entitic vol] 91.6 fL Normal 81.0-99.0 [facility] Comment on above: Performed By: #### C BC #### [facility] [address] [place] [address] Dr. Farhat Mcneil MONO # 0.5 103/ul Normal 0.3-0.8 [facility] Comment on above: Performed By: #### C BC #### [facility] [address] [address] [address] Farhat Mcneil Monocytes/100 WBC (Bld) 6.3 % Normal 1.7-12.0 [facility] Comment on above: Performed By: #### C BC #### [facility] [address] [address] [address] Farhat Mcneil NEUT # 4.3 103/ul Normal 1.4-6.5 [facility] Comment on above: Performed By: #### C BC #### [facility] [address] [address] [address] Farhat Mcneil Neutrophils/100 WBC (Bld) 60.7 % Normal 43.0-75.0 [facility] Comment on above: Performed By: #### C BC #### [facility] [address] [address] [address] Farhat Mcneil Platelet mean volume (Bld) [Entitic vol] 10.6 fL Normal 9.5-13.5 [facility] Comment on above: Performed By: #### C BC #### [facility] [address] [address] [address] Farhat Mcneil PLT 187 103/ul Normal 150-450 [facility] Comment on above: Performed By: #### C BC #### [facility] [address] [address] [address] Farhat Mcneil RBC 4.76 106/ul Normal 4.20-5.40 [facility] Comment on above: Performed By: #### C BC #### [facility] [address] [address] [address] Farhat Mcneil WBC 7.1 103/ul Normal 4.0-11.0 [facility] Comment on above: Performed By: #### C BC #### [facility] [address] [address] [address] Farhat Mcneil LIPID PROFILEon 11-11-2021 CHOL-HDL RATIO NORM SEE BELOW Normal [facility] Comment on above: Result Comment: 3.3 - 4.4 LOW RISK 4.4 - 7.1 AVERAGE RISK 7.1 - 11.0 MODERATE RISK >11.0 HIGH RISK Performed By: #### L IPID, T4, CMP, TSH #### [facility] [address] [address] [address] Farhat Mcneil Cholesterol [Mass/Vol] 286 mg/dL Critically high <=200 [facility] Comment on above: Performed By: #### L IPID, T4, CMP, TSH #### [facility] [address] [address] [address] Farhat Mcneil Cholesterol in HDL [Mass/Vol] 44 mg/dL Normal [facility] Comment on above: Performed By: #### L IPID, T4, CMP, TSH #### [facility] [address] [address] [address] Farhat Mcneil Cholesterol in LDL [Mass/Vol] 187.2 mg/dL Normal [facility] Comment on above: Performed By: #### L IPID, T4, CMP, TSH #### [facility] [address] [place] [address] Dr. Farhat Mcneil Cholesterol.total/Cho lesterol in HDL [Mass ratio] 6.5 {ratio} Normal [facility] Comment on above: Performed By: #### L IPID, T4, CMP, TSH #### [facility] [address] [address] [address] Farhat Mcneil HDL NORMAL > or = 60 mg/dl - LO W CARDIOVASCULAR RISK <40 mg/dl - HIGH CARDIOVASCULAR RISK Normal [facility] Comment on above: Performed By: #### L IPID, T4, CMP, TSH #### [facility] [address] [place] [address] Dr. Farhat Mcneil LDL CALC NORMAL SEE BELOW Normal [facility] Comment on above: Result Comment: <100 mg/dl OPTIMAL 100 - 129 mg/dl NEAR OR ABOVE OPTIMAL 130 - 159 mg/dl BORDERLINE HIGH 160 - 189 mg/dl HIGH >190 mg/dl VERY HIGH Performed By: #### L IPID, T4, CMP, TSH #### [facility] [address] [place] [address] Dr. Farhat Mcneil Triglyceride [Mass/Vol] 274 mg/dL Critically high <=150 [facility] Comment on above: Performed By: #### L IPID, T4, CMP, TSH #### [facility] [address] [address] [address] Farhat Mcneil VLDL CALC 54.8 mg/dL Normal [facility] Comment on above: Performed By: #### L IPID, T4, CMP, TSH #### [facility] [address] [address] [address] Farhat Mcneil PROF 14(COMP METB)on 022 Albumin [Mass/Vol] 3.8 g/dL Normal 3.5-5.0 [facility] Comment on above: Performed By: #### L IPID, T4, CMP, TSH #### [facility] [address] [place] [address] Dr. Farhat Mcneil Albumin/Globulin [Mass ratio] 1.0 {ratio} Normal [facility] Comment on above: Performed By: #### L IPID, T4, CMP, TSH #### [facility] [address] [address] [address] Farhat Mcneil ALP [Catalytic activity/Vol] 102 U/L Normal 38-126 [facility] Comment on above: Performed By: #### L IPID, T4, CMP, TSH #### [facility] [address] [place] [address] Dr. Farhat Mcneil ALT [Catalytic activity/Vol] 46 U/L Normal 9-52 [facility] Comment on above: Performed By: #### L IPID, T4, CMP, TSH #### [facility] [address] [address] [address] Farhat Mcneil Anion gap [Moles/Vol] 9.2 mmol/L Normal [facility] Comment on above: Performed By: #### L IPID, T4, CMP, TSH #### [facility] [address] [place] [address] Dr. Farhat Mcneil AST [Catalytic activity/Vol] 21 U/L Normal 14-36 [facility] Comment on above: Performed By: #### L IPID, T4, CMP, TSH #### [facility] [address] [place] [address] Dr. Farhat Mcneil Bilirubin [Mass/Vol] 0.3 mg/dL Normal 0.2-1.3 [facility] Comment on above: Performed By: #### L IPID, T4, CMP, TSH #### [facility] [address] [place] [address] Dr. Farhat Mcneil Calcium [Mass/Vol] 9.0 mg/dL Normal 8.4-10.2 [facility] Comment on above: Performed By: #### L IPID, T4, CMP, TSH #### [facility] [address] [place] [address] Dr. Farhat Mcneil Chloride [Moles/Vol] 103 mmol/L Normal 98-107 [facility] Comment on above: Performed By: #### L IPID, T4, CMP, TSH #### [facility] [address] [place] [address] Dr. Farhat Mcneil CO2 [Moles/Vol] 30.7 mmol/L Critically high 22.0-30.0 [facility] Comment on above: Performed By: #### L IPID, T4, CMP, TSH #### [facility] [address] [place] [address] Dr. Farhat Mcneil Creatinine [Mass/Vol] 0.75 mg/dL Normal 0.52-1.04 [facility] Comment on above: Performed By: #### L IPID, T4, CMP, TSH #### [facility] [address] [place] [address] Dr. Farhat Mcneil EGFR-AF SCOTTISH >60 Normal >=60 [facility] Comment on above: Performed By: #### L IPID, T4, CMP, TSH #### [facility] [address] [place] [address] Dr. Farhat Mcneil EGFR-NON AF SCOTTISH >60 Normal >=60 [facility] Comment on above: Performed By: #### L IPID, T4, CMP, TSH #### [facility] [address] [place] [address] Dr. Farhat Mcneil Globulin (S) [Mass/Vol] 3.7 g/dL Normal [facility] Comment on above: Performed By: #### L IPID, T4, CMP, TSH #### [facility] [address] [address] [address] Farhat Mcneil Glucose [Mass/Vol] 126 mg/dL Critically high 74-106 [facility] Comment on above: Performed By: #### L IPID, T4, CMP, TSH #### [facility] [address] [address] [address] Farhat Mcneil Potassium [Moles/Vol] 3.9 mmol/L Normal 3.4-5.0 [facility] Comment on above: Performed By: #### L IPID, T4, CMP, TSH #### [facility] [address] [place] [address] Dr. Farhat Mcneil Protein [Mass/Vol] 7.5 g/dL Normal 6.1-8.2 [facility] Comment on above: Performed By: #### L IPID, T4, CMP, TSH #### [facility] [address] [address] [address] Farhat Mcneil Sodium [Moles/Vol] 139 mmol/L Normal 137-145 [facility] Comment on above: Performed By: #### L IPID, T4, CMP, TSH #### [facility] [address] [place] [address] Dr. Farhat Mcneil Urea nitrogen [Mass/Vol] 11.0 mg/dL Normal 7.0-17.0 [facility] Comment on above: Performed By: #### L IPID, T4, CMP, TSH #### [facility] [address] [address] [address] Farhat Mcneil Urea nitrogen/Creatinine [Mass ratio] 14.7 mg/mg Normal [facility] Comment on above: Performed By: #### L IPID, T4, CMP, TSH #### [facility] [address] [place] [address] Dr. Farhat Mcneil T4on 11-11-2021 T4 [Mass/Vol] 7.60 ug/dL Normal 5.53-11.00 [facility] Comment on above: Performed By: #### L IPID, T4, CMP, TSH #### [facility] [address] [place], [place] [address] Dr. Farhat Mcneil TSHon 11-11-2021 TSH 2.278 uIU/mL Normal 0.470-4.680 [facility] Comment on above: Performed By: #### L IPID, T4, CMP, TSH #### [facility] [address] [place], [place] [address] Dr. Farhat Mcneil TSH RANGE SEE BELOW Normal [facility] Comment on above: Result Comment: <0.3 4 UIU/ml HYPERTHYROID 0.34-5.60 UIU/ml EUTHYROID >5.60 UIU/ml HYPOTHYROID Performed By: #### L IPID, T4, CMP, TSH #### [facility] [address] [place], [place] [address] Dr. Farhat Mcneil MRI Shoulder w/o + w/ Lefton 10-18-2021 MRI Shoulder w/o + w/ Left CLINICAL HISTORY: Left shoulder pain. COMPARISON: Noncontrast left shoulder MRI 08/27/2021, left shoulder radiographs 08/07/2021, and outside three-phase bone scan 09/20/2021. TECHNIQUE: Multiplanar MR imaging of the left shoulder was performed before and after intravenous administration of approximately 15 mL of ProHance gadolinium contrast. FINDINGS: Since the prior study, a minimally impacted Hill-Sachs deformity of the posterolateral aspect of the humeral head is present. A suspected nondisplaced incomplete surgical neck fracture posteriorly appears similar. Mild to moderate patchy bone marrow edema within the proximal humerus (with expected ill-defined enhancement) appears mildly improved. 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 A small joint effusion is again noted. IMPRESSION: MILDLY IMPROVED BONE MARROW EDEMA WITHIN THE PROXIMAL LEFT HUMERUS MOST CONSISTENT WITH SUBACUTE INJURY, DESCRIBED. INFECTION OR MALIGNANCY ARE THOUGHT TO BE UNLIKELY. A FOLLOW-UP STUDY IN 6 MONTHS COULD BE CONSIDERED. Report reported and signed by Josh Salguero on 10/21/2021 0956 Normal [facility] Counselor Manager Coding Summary.on 10-05-2021 Coding Summary. CD:[id number] G h0bWw+PGhlYWQ+FT5DLBY aO75wrCCdcK9IM4tNCI7Y NRMEZHWKNN7ODV5lpDH9B TmfW2RuwfHj BddekCYbIM94BCq1ZNQ7n ZodGVwbjY9vbUZdE8k7Td IsFF39lU78XTbzQYRyNeJ 3LjZpbjsgbWFy Y8htCbTueWHdEvk+PHRhY mxlIHdpZHRoPScxMDAlJy HbeByyYW6hGb7dCXIlGWZ vbGxhcHNlOiBj r0vcAZKgKKzbEJ2wmExvH 0EvtHP2KQGoz0k5Jp54yI I+CEZqADP5dGjkIVrhh37 1TmDud8drJOL5 dLTnAFcxKSB8N39zj8J4E BPxXOIeECL4yCE8wQ4syB cydvglY7CkpDXjJsI4QQA 2hFFeuI3unEqt pufgxK7yEyr+F08KMD5VT KOMNL8TObz1R2UvZuphbP I+GB65OIYkKS56eGQinRQ ff9kxvOj1SuKg XMZzIUZ5yZjyNEdyn5ZbR KBeG32bfFUgq6P1ALAddI ignHUeKmZlkZI1xJ9kDJd xmohxb2sdmrad Ahtgk7lint41iV76T22jA PemBPGxAJP3QKIyXASknZ novr5yhL9zZm0+XTfre9u ys8uozNm4IoQl SHOmtdXjhYonVSU8z1NnE c86Y3TieAcsr5RlRro6ef 10eQSfu0I7xBA8NMlqWBM urX2xVIfmJhQ9 XVYsGtXwoX76dJKoAZuyN t2luMkguDtdMF5tLUFxif rbNUNtwE5mBERbwGJohJr gSH1fCVOtenzi x267UcNwSBJ4NBGwtZQxJ 2TzdQ7kGyBgTMVkWDVdB1 PmfBSoBVhzB166KFxtMpJ 3BTVabpFyM6Fp BJPveNwxRkE0k0U3Un1Yi 3WwvzqjBTH9FReeSMTqRz L8BxXpZuP0R2IaJxw2ISH fsDulXY5fO3Ap LTYzqraabxkswHB4YUEuM XZufV40qUYqPIhtKk7rz0 U3w027AYAaJJPgdD45Hh9 udDogMTBwdCBU hR3tudmjz0barrvzBsCoG HFmEKy6XVb0YXYriVqgJa RmJRP1CcO5WIP5hANslM8 jtYywhlrguH0u Oyc+V67qgW8mRQO8TYE0q enuIOWmkpReDI90PB19Y2 RyPjwvdGFibGU+PGRpdiB avBnePJ3xPoSh y2ubb6OnFJbqI5InMAHzC AgdTgw2WBWyYYS7pJF1hW 2cHYEmEGvwy3O7tCE0V7H anfGycl2wk4vn JYXzSRvkB96hjDDqd3Z0H EDexMT0EOXbkQviHoDnbJ 93Oyc+SYClwXfcz9PdXwk ee5juk3nzrBn4 NpKsCIPyfwDukDbpUXT6v 6OmAe34E15yDUyxMISpSB RzSCYqJTFegLchfi5ybW1 wIi8+PGNvbCB3 fZY7dW8uCHUyTbG7YEgzW 243RcVnyBKuDliwh8okk8 galGp2XqTqGBUlymTqwRm kAGM9d0PcEv55 M41dYMzeRPLeCKHbMCEuO LVmdFfavj2tdY9wQg1+PC 9ed1qjyw24kV03pUP+PHR iLXQ6fSazXQou JHLevB3yITcwJpI4FSVyD oXmpC21sHExIXplMo9rlW uesPtsLE1xOJSmvlmaa76 7IrGwa5cxPJXh bHDzBRphXVL1H54ad7C3K XQmMCHyHKW5hTS7nT6chD lnbjogbGVmdDsgdmVydGl qEDedZPzfE347 IHRvcDsnPlBhdGllbnQgT wQuBNt4T9SfLpo1CKEymX siJY1rnIIqWLnkCt4mvGn geCdiIL9kYLGb ynowf965QlRje4fpEFGdg VSySMagXVH1I08sd2B5IE DmVJJoNEU0eMO5qK2zmLz nbjogbGVmdDsg bzNzbKfgRXkoJLacV833F HRvcDsnPkJpcnRoIERhdG E8BO56NZ18nXSxk7J0cQZ 2A4JyWAWunvls lyoloEL2RLLaRBYdcX11Y t7ykNejLj3oPIEwOHM4ZP ZnbCXiH4JxoQ9lYkLsZAR eITCpS0MexOGr PHaxR711KNmdWcC2OKKux wRpO5NmRXNxiLriEjF0c1 J2Mv4AP2S3IN29SE29xKU iy9B3yAI3A0Zb UQNsyyfsbygtjXX5BLVrS TCjiD32Ia4hdAfyQq7oFR OqMDH0CFHdpNQoC9NfrY1 yOiAjMDAwMDAw J2VjxFCzZCjdJ899UFvnI iF7XPUqesThZ9YtLRKoeT ctPrR0z2E0Xr5FALj8DW6 3BO94yYCks4K1 vBN4I0GiKJLlhisetcsfc KE6AHZaTLMepJ39De6xnU teQl2uIBHhDYN2TIAdjOS kT8XbpQ1fRuDl ISGpZIZaK8FmiSSnMPcnG 640OAscJiI6TMRstoIzD8 UnCAGhaNbbJtK1c1B9Oy6 UGCYyKS69PYJ4 pQE7OO72SG99Z2XuPhoek GFibGU+PHRhYmxlIHdpZH RoPScxMDAlJyBzdHlsZT0 dVz2qHEXxVWPj aOkwmMRrXeZfj6blVDEdE DefRA0onJhpX1KzpPV7JG Qkm2r1Sf38M39tB8AqhOF +OVAyvVF5bLO8 nV7xBzDlMiH8LVwvX192Y hZpuYKbSbkam2ofu6rztE a1JgX4VRElqwDerQggTXM 7i1MhIg29V40b IHdpZHRoPSIxNSUiIHZhb Sirvr8roK2pMt2+PGNvbC B3qVR5gD3oOqJiKmW8RKn rY822ZzNzhMRf Doiak7oak1qatKu8IoHmM JUdoqDwjZkbSRI9s2GpRf 66K1IugJbpt4IwVhz9ku0 4iNSdq0D6vDU1 O3MhMQByfzvrxRZsyJikR B4bFNUwwlsbRZHphB4jKS QcB6i7MtHpJeU5SRkxA2Z oyoK6EGFsfWDx OEjzCWX5N46eb5G3VXJpQ UDfZIL3xUD1vA7gdHmahx ogbGVmdDsgdmVydGljYWw fVPawD540KKBn pRznNVVsfY4wNPSjhLSee QbxIM7jVIFgqunpKb6WL9 JFLCBMVUNSRVRJQSBNPC9 3HQ88qLLfx8I1 kEV2Q2JxSKZwhnlgpbecu WI2CMRdTKVwjT00fUOlBD itIp4om3J5o197AGIiARP vjC58Hi0jqOyu RGHuhNFKhG8meaqkg0kmg fziEnEcBSQvCTc6GYr9PZ YopLxjHrEfVJJ9YcM2OAB 6cQBltQ7gyAql pmwzkS1lLrr+MDkvMTEvM Ij5ZBgakFG+YLWyJPJ5wD hmRQzuWDXlxH6kJEMlP4n 3VgDuTuS2PAqy A7DpXNTszgncGt91hU4tF oWdHsM5EPloF8LmzxW3IB LtcLWpGOewETN0X78ap5A 7JGUjQJQnWKV1 pLY5sJ3wiYijlkzgaZNgh DsgdmVydGljYWwtYWxpZ2 46IHRvcDsnPjYwIFllYXJ cFW96TR89uQVx f5C0wIO4F5RuOJMjryctb whalDI1HMXaZHMswQ65tS LeMRgiJt1do1G5x718TZZ jZIKskJ26Ki8n lRfmNFDccTMAiC9nwgzck 2pqbbohEwOmSPIbAEo3IP t1SRLhmVwcBsLrTTN8TcD 6QET6yZRjmF4g sPzhxmlxvO7aUdm+RmVtY JloOC28TB74nNTxx5O7rT A5Y3OgOSUtxticahgjbYY 5SKCqQNJgkK08 mWElKJjpDx8sv2Z8q402M EVeXRWjoM08Sr7lcDujTY LtyINUtV8slkexp3nmzpg gIzAwMDAwMDt0 KSm9IDBhpWywYyStOJC1W hK5AOT0cNUtvF8amUkbum nykU7gDmr+I3B1gYU7mCD udDwvdGQ+PC90 he39W7SkXgfbQcr6DOMxM EJ0dQS0pR0mCBIlVDhxw1 V3fDE9V0IjfdYmql1up6u qGXHiUTwcM31c bATcl3D1HRRddKK2SBYxz PoqThSvzT54Zhp+PGNvbG poy8OmDrwvz2oza3faaRo 9IjMwJSIgdmFs nMkgCRR0y2XyCf28F12iZ HdpZHRoPSIzMCUiIHZhbG aywp2ywX0dFa5+PGNvbCB 1eFW7kE8hVnDy PuZ9WVadZ936OlQyfIPmH ywys5xyo2fggBp9WbAjJQ BlguCyiDtjCCJ1u2RwDw4 9Q2JrlGbrh6Us Zbz0lp81iZKwu2Z9oWS1F 3BhZGRpbmctbGVmdDogMC 5aWPHgrwafPERytX7xWEA qS5p7HyCwYxB6 YMruK4ZvtnF8JPMieSTqE NYuqNQZgX0dttpxd6csee fyLwIlLCFcQEl7TEw7XYP saWduOiBsZWZ0 KtK2NDN2gWLwaF1jgEhqx ykxoY6yUpd+WWd6w2qjkE WqNA7vfTS4LW64XV69vLL su7F4sPM4A2Em WLJivvzwtuudmWK4DYCuC RKxeB03Kf7fxZdeXi9yOQ QuSWA9JFYifPNwK2ZumT5 yOiAjMDAwMDAw L3UwwMSbPMtuA145UHgfK iV9EBOlyzWfQ0QuOMAftZ flGiX5f8S9Nz9KEC65HD6 0OZ09dKXgj4D9 eZN1D4MoTREvsybtvcqdm RG0VGLjRTFwzU46Pk5vlN voKg0nBFNiSKZ0LNMqdIN lE3VnvX3sSqPp HNDlQXAjT7IexXPbMAxuU 128QYfeMoR8GTUsmiItV4 NwBKPmxLbwJqH3b7I3El5 JBc39JE08BC48 rUOhp5C5uEC9M5CbJFLbr rdunpzvoOB3DEKoZPKpzE 34Ic1bzLtwVq5vFPVfQKR 9RQKhuYPuD7Ah mC4dMwMyIWPhDDAcK0Iav OAkDItrU474QQliFqF4ZQ QrbqWdR8CiCYVmkOijOyJ 9b0K7Bf0EJHpa iha7G9YkIzanoTZ+PC90Y MPoGA45zUIopTGqb3vcwI u2UzOyQCJhJUH3nYppXJr zg1LuCBCkB66h bGFw (more content not included)... [facility] Consent for Treatmenton 12-3 Consent for Treatment [id number]#1 .00CD:127 Normal [facility] NM Bone Scan 3 Phaseon 09-20 NM Bone Scan 3 Phase Exam Date/Time: 09/20/2021 12:39 EST Reason for Exam: Pain in left shoulder Report IMPRESSION: NONSPECIFIC DELAYED RADIOTRACER ACCUMULATION TO THE LEFT HUMERAL HEAD, NOTED. FURTHER EVALUATION WITH A LEFT SHOULDER MRI IS SUGGESTED, PREFERABLY WITH CONTRAST. EXAM: NM Bone Scan 3 Phase DATE: 09/20/2021 CLINICAL HISTORY: Pain in left shoulder. COMPARISON: Left shoulder radiographs 08/07/2021 TECHNIQUE: After the intravenous administration of approximately 21.3 mCi of technetium 99m MDP, a three-phase bone scan of the chest and shoulders was performed. FINDINGS: There is no significant increased blood flow or blood pool activity to the left shoulder. Moderate delay in radiotracer accumulation is present to the posterolateral aspect of the left humeral head, which is nonspecific. Possibilities include a healing bone contusion, infection, RSD, etc. Further evaluation with MRI is suggested, preferably with contrast. FINAL REPORT Dictated: 09/20/2021 5:18 pm Franky Salguero MD Signed (Electronic Signature): 09/20/2021 5:18 pm Signed by: Franky Salguero MD Transcribed by: JODEE Technologist: ERIC Technical Comments Dose: (mCi Tc99m MDP) 21.3 Imaging Post Administration (hrs): 3 [facility] Physician Orderon 09-12-2021 Physician Order [id number]# 1.00CD:127 [facility] MRI Shoulder w/o Lefton 0 MRI Shoulder w/o Left HISTORY: Pain and decreased range of motion. COMPARISON: Shoulder radiographs 08/07/2021 TECHNIQUE: Multiplanar multisequence MRI was performed of the left shoulder without contrast. FINDINGS: Mild degenerative changes of the acromioclavicular joint without undersurface osteophyte formation. The acromion is curved. Coracoclavicular ligament is intact. No subacromial/subdeltoi d bursal fluid or edema. The supraspinous, infraspinatus, subscapularis, and teres minor tendons are intact. No atrophy or fatty infiltration of the rotator cuff musculature. The intra-articular and extra articular long head bicep tendon is intact. The biceps tendon resides within the bicipital groove. No labral tear identified. Small subcortical cyst formation of the posterior superior glenoid secondary to full-thickness cartilage fissures. Tiny medial humeral head osteophyte. There is moderate bone marrow edema within the neck and proximal diaphysis of the humerus for a craniocaudal length of approximately 6 cm. There is linear hypointense T1 signal involving the posterior aspect of the proximal diaphysis as seen on sagittal T1 image 14 of 20. No well-defined bone lesion or soft tissue lesion. Small glenohumeral joint effusion with tiny loose bodies within the axillary recess and superior subscapularis recess. IMPRESSION: Moderate bone marrow edema within the proximal humerus that is nonspecific but most likely due to a nondisplaced fracture involving the posterior cortex of the proximal diaphysis given the linear hypointense T1 signal as detailed above. Other etiologies such as osteomyelitis and malignancy are felt much less likely but are not excluded. Mild glenohumeral and acromioclavicular osteoarthritis. Rotator cuff is intact. Report reported and signed by Jackson Ma on 08/28/2021 0949 Normal [facility] FLUORO FOR SURGICAL PROCEDUR ESon 09-11-2020 FLUORO FOR SURGICAL PROCEDURES FLUORO FOR SURGICAL PROCEDURES : 09/11/2020 3:53 PM CLINICAL HISTORY: Lumbar Diskectomy . COMPARISON: None available. Intraoperative fluoroscopy was provided for Dr. Rios procedure. A total of 1 seconds of fluoroscopy was used, with 4 fluoroscopic stills saved. No diagnostic images were obtained. Please see Dr. Rios surgical notes for completeness. Interpreted by: Phillip Corral MD Signed by: Phillip Corral MD 09/11/20 Final result Normal [facility] Rory, Chpo Incoming Radiant Results From [employer] - 09/11/2020 5:09 PM EST FLUORO FOR SURGICAL PROCEDURES : 09/11/2020 3:53 PM CLINICAL HISTORY: Lumbar Diskectomy . COMPARISON: None available. Intraoperative fluoroscopy was provided for Dr. Gabriel gonzalez. A total of 1 seconds of fluoroscopy was used, with 4 fluoroscopic stills saved. No diagnostic images were obtained. Please see Dr. Rios surgical notes for completeness. [place] FLUORO FOR SURGICAL PROCEDURES : 09/11/2020 3:53 PM CLINICAL HISTORY: Lumbar Diskectomy . COMPARISON: None available. Intraoperative fluoroscopy was provided for Dr. Gabriel gonzalez. A total of 1 seconds of fluoroscopy was used, with 4 fluoroscopic stills saved. No diagnostic images were obtained. Please see Dr. Rios surgical notes for completeness. [place] POCT Glucoseon 09-11-2020 Glucose [Mass/Vol] 145 mg/dL Critically high 60-115 [facility] Comment on above: Performed By: #### P GLU #### [facility] [address] [place] [address] POC Performed on ACCU-CHEK Normal [facility] Comment on above: Performed By: #### P GLU #### [facility] [address] [place] [address] Glucose [Mass/Vol] 145 mg/dL High 60 - 115 mg/dl [place] Interpretation and review of laboratory results Abnormal [place] Performed on ACCU-CHEK [place], [place] Glucose [Mass/Vol] 131 mg/dL Critically high 60-115 [facility] Comment on above: Performed By: #### P GLU #### [facility] [address] [place] [address] POC Performed on ACCU-CHEK Normal [facility] Comment on above: Performed By: #### P GLU #### [facility] [address] [place] [address] Glucose [Mass/Vol] 131 mg/dL High 60 - 115 mg/dl [place] Interpretation and review of laboratory results Abnormal [place] Performed on ACCU-CHEK [place] Surgical Specimenon 09-11-20 20 Surgical Specimen [facility] [address] [place] [id number] FINAL SURGICAL PATHOLOGY REPORT Patient Name: JORDY DUNNE Accession No: [id number] Age Sex: 1960 Location: [id number] Account No: [id number] Collected: 09/11/2020 [facility] Rec No: [id number] Received: 09/12/2020 Attend Phys: MAGDALENO RIOS Completed: 09/13/2020 Perform Phys: MAGDALENO GABRIEL FINAL DIAGNOSIS: DISC- INTERVERTEBRAL DISC MATERIAL WITH DEGENERATIVE CHANGES. ALIFA/ALIFA CLINICAL INFORMATION: Right discectomy. SPECIMEN: Disc GROSS DESCRIPTION: Specimen received in formalin in a container labeled with patient's name and designated as spine . Specimen consists of pinkish-everett soft to firm tissue fragments measuring 2.2 x 1.0 x 0.2 cm. Specimen is submitted in toto in one cassette after brief decalcification. ALIFA/ALIFA CPT: 52039 X1 30419 X1 VENKATESH COTTON M.D. 09/13/2020 Electronically signed out by Page 1 of 1 [facility] Comment on above: Performed By: #### S UR #### [address] [address] XR CHEST PORTABLEon 09-11-20 20 INR Coag (Bld) [Relative time] NO ACUTE ACTIVE CARDIOPULMONARY PROCESS [place] EXAMINATION: CHEST PORTABLE VIEW CLINICAL HISTORY: Back pain COMPARISONS: None FINDINGS: Single views of the chest is submitted. The cardiac silhouette is enlarged. Pulmonary vascular unremarkable. Right sided trachea. No focal infiltrates. No Pneumothoraces. [place], [place] Rory, po Incoming Radiant Results From [employer] - 09/11/2020 7:58 AM EST EXAMINATION: CHEST PORTABLE VIEW CLINICAL HISTORY: Back pain COMPARISONS: None FINDINGS: Single views of the chest is submitted. The cardiac silhouette is enlarged. Pulmonary vascular unremarkable. Right sided trachea. No focal infiltrates. No Pneumothoraces. IMPRESSION: NO ACUTE ACTIVE CARDIOPULMONARY PROCESS [place] XR LUMBAR SPINE (MIN 4 VIEWS )on 09-11-2020 [place], [facility] Incoming Radiant Results From [employer] - 09/11/2020 10:22 AM EST EXAMINATION: XR LUMBAR SPINE (MIN 4 VIEWS) CLINICAL HISTORY: Preop COMPARISON: none FINDINGS: Six views of the lumbar spine including oblique views are submitted. Is diffuse generalized osteopenia. There are 5 lumbar type vertebrae. No acute fractures. Disk spaces are well preserved. No significant spondylolisthesis there is multilevel degenerative changes of posterior facets lower lumbar spine. The SI joints show degenerative changes.. IMPRESSION NO ACUTE FRACTURE. [place] EXAMINATION: XR LUMBAR SPINE (MIN 4 VIEWS) CLINICAL HISTORY: Preop COMPARISON: none FINDINGS: Six views of the lumbar spine including oblique views are submitted. Is diffuse generalized osteopenia. There are 5 lumbar type vertebrae. No acute fractures. Disk spaces are well preserved. No significant spondylolisthesis there is multilevel degenerative changes of posterior facets lower lumbar spine. The SI joints show degenerative changes.. IMPRESSION NO ACUTE FRACTURE. [place] APTTon 09-10-2020 aPTT Coag (Bld) [Time] 30.5 s [place] Comment on above: Effective 07/25/2020: Heparin Therapeutic Range: 64.0 98.0 seconds. CBC Auto Differentialon 08-22 Basophils (Bld) [#/Vol] 0.1 10*3/uL 0 - 0.2 K/uL [place] Basophils/100 WBC (Bld) 0.7 % [place] Eosinophils (Bld) [#/Vol] 0.0 10*3/uL 0 - 0.7 K/uL [place] Eosinophils/100 WBC (Bld) 0.2 % [place] Erythrocyte distribution width (RBC) [Ratio] 13.2 % 11.5 - 14.5 % [place] Hematocrit (Bld) [Volume fraction] 41.0 % 37 - 47 % [place] Hemoglobin (Bld) [Mass/Vol] 14.2 g/dL 12 - 16 g/dL [place] Interpretation and review of laboratory results Abnormal [place] Lymphocytes (Bld) [#/Vol] 2.9 10*3/uL 1 - 4.8 K/uL [place] Lymphocytes/100 WBC (Bld) 25.0 % [place] MCH (RBC) [Entitic mass] 32.9 pg High 27 - 31.3 pg [place] MCHC (RBC) [Mass/Vol] 34.6 % 33 - 37 % [place] MCV (RBC) [Entitic vol] 95.0 fL 82 - 100 fL [place] Monocytes (Bld) [#/Vol] 0.4 10*3/uL 0.2 - 0.8 K/uL [place] Monocytes/100 WBC (Bld) 3.8 % [place] Neutrophils Absolute 8.2 K/uL High 1.4 - 6 .5 K/uL [place] Neutrophils/100 WBC (Bld) 70.3 % [place] Platelets (Bld) [#/Vol] 196 10*3/uL 130 - 400 K/uL [place] RBC (Bld) [#/Vol] 4.32 10*6/uL [place] WBC (Bld) [#/Vol] 11.6 10*3/uL High 4.8 - 10.8 K/uL [place] CBC With Platelet and Differ entialon 09-10-2020 Basophils (Bld) [#/Vol] 0.1 10*3/uL Normal 0.0-0.2 [facility] Comment on above: Performed By: #### C BCWD #### [facility] [address] [place] [address] Basophils/100 WBC (Bld) 0.7 % Normal [facility] Comment on above: Performed By: #### C BCWD #### [facility] [address] [place] [address] Eosinophils (Bld) [#/Vol] 0.0 10*3/uL Normal 0.0-0.7 [facility] Comment on above: Performed By: #### C BCWD #### [facility] [address] [place] [address] Eosinophils/100 WBC (Bld) 0.2 % Normal [facility] Comment on above: Performed By: #### C BCWD #### [facility] [address] [place] [address] Erythrocyte distribution width (RBC) [Ratio] 13.2 % Normal 11.5-14.5 [facility] Comment on above: Performed By: #### C BCWD #### [facility] [address] [place] [address] Hematocrit (Bld) [Volume fraction] 41.0 % Normal 37.0-47.0 [facility] Comment on above: Performed By: #### C BCWD #### [facility] [address] [place] [address] Hemoglobin (Bld) [Mass/Vol] 14.2 g/dL Normal 12.0-16.0 [facility] Comment on above: Performed By: #### C BCWD #### [facility] [address] [place] [address] Lymphocytes (Bld) [#/Vol] 2.9 10*3/uL Normal 1.0-4.8 [facility] Comment on above: Performed By: #### C BCWD #### [facility] [address] [place] [address] Lymphocytes/100 WBC (Bld) 25.0 % Normal [facility] Comment on above: Performed By: #### C BCWD #### [facility] [address] [place] [address] MCH (RBC) [Entitic mass] 32.9 pg Critically high 27.0-31.3 [facility] Comment on above: Performed By: #### C BCWD #### [facility] [address] [place] [address] MCHC (RBC) [Mass/Vol] 34.6 % Normal 33.0-37.0 [facility] Comment on above: Performed By: #### C BCWD #### [facility] [address] [place] [address] MCV (RBC) [Entitic vol] 95.0 fL Normal 82.0-100.0 [facility] Comment on above: Performed By: #### C BCWD #### [facility] [address] [place] [address] Monocytes (Bld) [#/Vol] 0.4 10*3/uL Normal 0.2-0.8 [facility] Comment on above: Performed By: #### C BCWD #### [facility] [address] [place] [address] Monocytes/100 WBC (Bld) 3.8 % Normal [facility] Comment on above: Performed By: #### C BCWD #### [facility] [address] [place] [address] Neutrophils (Bld) [#/Vol] 8.2 10*3/uL Critically high 1.4-6.5 [facility] Comment on above: Performed By: #### C BCWD #### [facility] [address] [place] [address] Neutrophils/100 WBC (Bld) 70.3 % Normal [facility] Comment on above: Performed By: #### C BCWD #### [facility] [address] [place] [address] Platelets (Bld) [#/Vol] 196 10*3/uL Normal 130-400 [facility] Comment on above: Performed By: #### C BCWD #### [facility] [address] [place] [address] RBC (Bld) [#/Vol] 4.32 10*6/uL Normal 4.20-5.40 [facility] Comment on above: Performed By: #### C BCWD #### [facility] [address] [place] [address] WBC (Bld) [#/Vol] 11.6 10*3/uL Critically high 4.8-10.8 [facility] Comment on above: Performed By: #### C BCWD #### [facility] [address] [place] [address] COVID-19on 09-10-2020 COVID-19, NAAT Not Detected Normal Not Detect [facility] Comment on above: Result Comment: Rapi d NAAT: Negative results should be treated as presumptive and, if inconsistent with clinical signs and symptoms or necessary for patient management, should be tested with an alternative molecular assay. Negative results do not preclude SARS-CoV-2 infection and should not be used as the sole basis for patient management decisions. This test has been authorized by the FDA under an Emergency Use Authorization (EUA) for use by authorized laboratories. Fact sheet for Healthcare Providers: https://www.fda.gov/media/645198/download Fact sheet for Patients: https://www.fda.gov/media/814103/download METHODOLOGY: Isothermal Nucleic Acid Amplification Performed By: #### C OVPC #### [facility] [address] [place] [address] SARS-CoV-2, NAAT Not Detected Not Detected [place], [place] Comment on above: Rapid NAAT: Negative results should be treated as presumptive and, if inconsistent with clinical signs and symptoms or necessary for patient management, should be tested with an alternative molecular assay. Negative results do not preclude SARS-CoV-2 infection and should not be used as the sole basis for patient management decisions. This test has been authorized by the FDA under an Emergency Use Authorization (EUA) for use by authorized laboratories. Fact sheet for Healthcare Providers: https://www.fda.gov/media/345498/download Fact sheet for Patients: https://www.fda.gov/media/609738/download METHODOLOGY: Isothermal Nucleic Acid Amplification Comprehensive Metabolic Pane felipa 09-10-2020 Albumin [Mass/Vol] 3.9 g/dL Normal 3.5-4.6 [facility] Comment on above: Performed By: #### C MP #### [facility] [address] [place] [address] ALP [Catalytic activity/Vol] 76 U/L Normal 40-130 [facility] Comment on above: Performed By: #### C MP #### [facility] [address] [place] [address] ALT [Catalytic activity/Vol] 22 U/L Normal 0-33 [facility] Comment on above: Result Comment: Spec imen hemolysis has exceeded the interference as defined by Shikha. Result may be affected. Suggest recollection if clinically indicated. Performed By: #### C MP #### [facility] [address] [place] [address] Anion gap [Moles/Vol] 9 mmol/L Normal 9-15 [facility] Comment on above: Performed By: #### C MP #### [facility] [address] [place] [address] AST [Catalytic activity/Vol] 18 U/L Normal 0-35 [facility] Comment on above: Result Comment: Spec imen hemolysis has exceeded the interference as defined by Shikha. Value may be falsely increased. Suggest recollection if clinically indicated. Performed By: #### C MP #### [facility] [address] [place] [address] Bilirubin [Mass/Vol] 0.3 mg/dL Normal 0.2-0.7 [facility] Comment on above: Performed By: #### C MP #### [facility] [address] [place] [address] Calcium [Mass/Vol] 9.2 mg/dL Normal 8.5-9.9 [facility] Comment on above: Performed By: #### C MP #### [facility] [address] [place] [address] Chloride [Moles/Vol] 103 mmol/L Normal 95-107 [facility] Comment on above: Performed By: #### C MP #### [facility] [address] [place] [address] CO2 [Moles/Vol] 28 mmol/L Normal 20-31 [facility] Comment on above: Performed By: #### C MP #### [facility] [address] [place] [address] Creatinine [Mass/Vol] 0.67 mg/dL Normal 0.50-0.90 [facility] Comment on above: Performed By: #### C MP #### [facility] [address] [place] [address] GFR/1.73 sq M predicted among blacks MDRD (S/P/Bld) [Vol rate/Area] mL/min/{1.73_m2} Normal >60 [facility] Comment on above: Result Comment: >60 mL/min/1.73m2 EGFR, calc. for ages 18 and older using the MDRD formula (not corrected for weight), is valid for stable renal function. Performed By: #### C MP #### [facility] [address] [place] [address] GFR/1.73 sq M.predicted MDRD (S/P/Bld) [Vol rate/Area] mL/min/{1.73_m2} Normal >60 [facility] Comment on above: Result Comment: >60 mL/min/1.73m2 EGFR, calc. for ages 18 and older using the MDRD formula (not corrected for weight), is valid for stable renal function. Performed By: #### C MP #### [facility] [address] [place] [address] Globulin (S) [Mass/Vol] 2.4 g/dL Normal 2.3-3.5 [facility] Comment on above: Performed By: #### C MP #### [facility] [address] [place] [address] Glucose [Mass/Vol] 189 mg/dL Critically high 70-99 [facility] Comment on above: Performed By: #### C MP #### [facility] [address] [place] [address] Potassium [Moles/Vol] 4.2 mmol/L Normal 3.4-4.9 [facility] Comment on above: Result Comment: Spec imen hemolysis has exceeded the interference as defined by Shikha. Value may be falsely increased. Suggest recollection if clinically indicated. Performed By: #### C MP #### [facility] [address] [place] [address] Protein [Mass/Vol] 6.3 g/dL Normal 6.3-8.0 [facility] Comment on above: Performed By: #### C MP #### [facility] [address] [place] [address] Sodium [Moles/Vol] 140 mmol/L Normal 135-144 [facility] Comment on above: Performed By: #### C MP #### [facility] [address] [place] [address] Urea nitrogen [Mass/Vol] 17 mg/dL Normal 6-20 [facility] Comment on above: Performed By: #### C MP #### [facility] [address] [place] [address] Albumin [Mass/Vol] 3.9 g/dL 3.5 - 4.6 g/dL [place] ALP [Catalytic activity/Vol] 76 U/L 40 - 130 U/L [place] ALT [Catalytic activity/Vol] 22 U/L 0 - 33 U/L [place] Comment on above: Specimen hemolysis h as exceeded the interference as defined by Shikha. Result may be affected. Suggest recollection if clinically indicated. Anion gap [Moles/Vol] 9 mmol/L [place] AST [Catalytic activity/Vol] 18 U/L 0 - 35 U/L [place] Comment on above: Specimen hemolysis h as exceeded the interference as defined by Shikha. Value may be falsely increased. Suggest recollection if clinically indicated. Bilirubin Ql (U) 0.3 mg/dL 0.2 - 0.7 mg/dL [place] Calcium [Mass/Vol] 9.2 mg/dL 8.5 - 9.9 mg/dL [place] Chloride [Moles/Vol] 103 mmol/L [place] CO2 [Moles/Vol] 28 mmol/L [place] Creatinine [Mass/Vol] 0.67 mg/dL 0.5 - 0.9 mg/dL [place] GFR >60.0 >60 [place] Comment on above: >60 mL/min/1.73m2 EG FR, calc. for ages 18 and older using the MDRD formula (not corrected for weight), is valid for stable renal function. GFR Non- >60.0 >60 [place] Comment on above: >60 mL/min/1.73m2 EG FR, calc. for ages 18 and older using the MDRD formula (not corrected for weight), is valid for stable renal function. Globulin (S) [Mass/Vol] 2.4 g/dL 2.3 - 3.5 g/dL [place] Glucose [Mass/Vol] 189 mg/dL High 70 - 99 mg/dL [place] Interpretation and review of laboratory results Abnormal [place] Potassium [Moles/Vol] 4.2 mmol/L [place] Comment on above: Specimen hemolysis h as exceeded the interference as defined by Shikha. Value may be falsely increased. Suggest recollection if clinically indicated. Protein [Mass/Vol] 6.3 g/dL 6.3 - 8 g/dL [place] Sodium [Moles/Vol] 140 mmol/L [place] Urea nitrogen [Mass/Vol] 17 mg/dL 6 - 20 mg/dL [place] MRI LUMBAR SPINE WO CONTRAST on 09-10-2020 MRI LUMBAR SPINE WO CONTRAST MRI lumbar spine HISTORY: Low back and right lower extremity pain with subjective lower extremity weakness. COMPARISON: No prior imaging of the lumbar spine available for correlation. TECHNIQUE: Sagittal T1, T2, and inversion recovery. Axial and coronal T2. Sagittal cervical thoracic and thoracolumbar T2 localizer. 3 plane gradient echo localizer. FINDINGS: For the purposes of enumerating the lumbar disc levels the lowest lumbar-type disc will be referred to as L5-S1. Conus medullaris is unremarkable. Vertebral body heights and alignment is maintained. No sign of spondylolysis. Slightly mottled marrow signal pattern throughout the visualized vertebrae considered to represent a mixture of predominantly fatty marrow with minimal metaplastic marrow. L4 right posterior vertebral body-pedicle junction 9.4 mm focus of decreased T1 and T2 signal without discernible inversion recovery signal is nonspecific. This could represent a hematopoietic marrow rest. Similar 6 mm central L3 vertebral signal focus. Parasagittal superior 4.4 mm focus of increased T2 and inversion recovery signal with mildly decreased T1 signal, too small to characterize but most likely a fat poor hemangioma. T11-12 disc is partly included on the edge of the study and appears unremarkable. T12-L1 disc height maintained. Minimal left paracentral shallow disc bulging causing subtle mass effect on the thecal sac. No significant canal or foraminal narrowing. L1-2 (L1): Disc space height relatively well seen. Subtle anterior disc bulging. Minimal inferior L1 endplate Schmorl's node. Posterior disc margin unremarkable. No canal or foraminal narrowing. L2-3 (L2): Moderate disc space narrowing and desiccation. Moderate focal left paracentral anterior disc bulging and endplate spurring. Posterior disc margin has minimal bulging. Mild to moderate broad-based right foraminal and lateral disc bulging. Minimal associated right foraminal narrowing. L2 nerve root appears to exit above the disc bulge. No foraminal narrowing or disc bulging on the left. No canal stenosis. L3-4 (L3): Moderate to marked disc space narrowing and desiccation. Mild to moderate anterior disc bulging and endplate spurring. Posterior disc with very mild diffuse bulging causing very mild mass effect on the anterior aspect of the thecal sac. Mild left greater than right ligamentous hypertrophy causing subtle mass effect on the posterior lateral aspect of the thecal sac. Overall no significant canal stenosis. Mild right lateral and minimal right foraminal bulging of the disc contiguous to the L3 nerve root laterally. Very little more medial foraminal narrowing on either side. Mild to moderate left greater than right facet arthrosis. L4-5 (L4): Mild disc space narrowing and desiccation. Minimal loss of the posterior disc concavity without significant mass effect on the thecal sac. Subtle foraminal bulging of the disc bilaterally. On the right there is associated moderate to severe foraminal narrowing due to superior facet joint spurring and ligamentous thickening. No significant foraminal narrowing on the left. Moderate-marked, left greater than right, bilateral facet arthrosis with less than 5 mm cyst arising from the very posterior aspect of the facet joint adjacent to the posterior paraspinal muscles. L5-S1 (L5): Disc space height and degree of hydration relatively well-maintained. Loss of the posterior disc concavity likely on a congenital basis. No mass effect on the thecal sac, canal or significant foraminal stenosis. Mild facet degenerative changes. IMPRESSION: Degenerative disc disease, without sign of focal disc herniation or significant canal stenosis, most pronounced at L2-3 and L3-4. L4-5 right moderate to severe foraminal stenosis due to facet arthrosis and minimal disc bulging. L3-4 right foraminal and lateral disc bulging contiguous to the lateral right L3 nerve root. Regarding significance, recommend correlation with dermatomal pain distribution. L2-3 right foraminal and lateral disc bulging. The nerve root appears to exit above the disc. L4 and L3 small nonspecific foci of vertebral body signal abnormality described above. Interpreted by: Nando Dixon MD Signed by: Nando Dixon MD 09/10/20 Final result Normal [facility] [place], [place] Incoming Radiant Results From [facility] - 09/10/2020 4:27 PM EST STUDY IS REVIEWED WITH THE REFERRING NEUROSURGEON DR. MAGDALENO RIOS AT 1552 HOURS ON 09/10/2020. L4-5 foraminal disc bulge is more pronounced on the right where there is a small superimposed superior protrusion of the disc on axial image #28 and sagittal image #5 contacting the anterior inferior margin of the exiting right L4 nerve root. Posterior margin of the nerve root is contacted by the superior facet joint spurring and/or ligamentous thickening. [place] STUDY IS REVIEWED WITH THE REFERRING NEUROSURGEON DR. MAGDALENO RIOS AT 1552 HOURS ON 09/10/2020. L4-5 foraminal disc bulge is more pronounced on the right where there is a small superimposed superior protrusion of the disc on axial image #28 and sagittal image #5 contacting the anterior inferior margin of the exiting right L4 nerve root. Posterior margin of the nerve root is contacted by the superior facet joint spurring and/or ligamentous thickening. [place] Partial Thromboplastin Timeo n 09-10-2020 aPTT Coag (Bld) [Time] 30.5 s Normal 24.4-36.8 [facility] Comment on above: Result Comment: Effe ctive 07/25/2020: Heparin Therapeutic Range: 64.0 ? 98.0 seconds. Performed By: #### P TT #### [facility] [address] [place] [address] Prothrombin Timeon 0 INR Coag (PPP) [Relative time] 1.1 {INR} Normal [facility] Comment on above: Performed By: #### P T #### [facility] [address] [place] [address] PT Coag (PPP) [Time] 13.9 s Normal 12.3-14.9 [facility] Comment on above: Performed By: #### P T #### [facility] [address] [place] [address] Protime-INRon 09-10-2020 INR Coag (PPP) [Relative time] 1.1 {INR} [facility], [place] PT Coag (PPP) [Time] 13.9 s [facility], [place] XR CHEST PORTABLEon 09-10-20 20 XR CHEST PORTABLE EXAMINATION: CHEST PORTABLE VIEW CLINICAL HISTORY: Back pain COMPARISONS: None FINDINGS: Single views of the chest is submitted. The cardiac silhouette is enlarged. Pulmonary vascular unremarkable. Right sided trachea. No focal infiltrates. No Pneumothoraces. IMPRESSION: NO ACUTE ACTIVE CARDIOPULMONARY PROCESS Interpreted by: Phillip Corral MD Signed by: Phililp Corral MD 09/11/20 Final result Normal [facility] XR LUMBAR SPINE (MIN 4 VIEWS )on 09-10-2020 XR LUMBAR SPINE (MIN 4 VIEWS) EXAMINATION: XR LUMBAR SPINE (MIN 4 VIEWS) CLINICAL HISTORY: Preop COMPARISON: none FINDINGS: Six views of the lumbar spine including oblique views are submitted. Is diffuse generalized osteopenia. There are 5 lumbar type vertebrae. No acute fractures. Disk spaces are well preserved. No significant spondylolisthesis there is multilevel degenerative changes of posterior facets lower lumbar spine. The SI joints show degenerative changes.. IMPRESSION NO ACUTE FRACTURE. Interpreted by: Phillip Corral MD Signed by: Phillip Corral MD 09/11/20 Final result Normal [facility] Vital Signs Date Time Vital Sign Value Performing Clinician Faci lity 09-11-2020 17:30-0500 BP Diastolic 94 mm[Hg] [facility] [place] 09-11-2020 17:30-0500 BP Systolic 182 mm[Hg] Magdaleno Gabriel [facility] , [place] 09-11-2020 17:30-0500 Pulse (Heart Rate) 60 /min Magdaleno Gabriel [facility], [place] 09-11-2020 17:30-0500 Pulse Oximetry 94 % [facility] [place] 09-11-2020 17:30-0500 Respiratory Rate 19 /min Magdaleno Gabriel [facility], [place] 09-11-2020 16:50-0500 Body Temperature 98.01 [degF] Magdaleno Gabriel [facility], [place] 09-10-2020 10:41-0500 BMI (Body Mass Index) 27.46 kg/m2 Magdaleno Zarfo [facility], [place] 09-10-2020 10:41-0500 Body weight 72.58 kg [facility] [place] 09-10-2020 10:41-0500 Height 162.6 cm [facility]eno [facility] [place] Encounters Encounter Date Encounter Type Care Provider Facility Start: 08-25-2023 End: 08-25-2023 ambulatory PARESH AJ Not Available Start: 09-05-2022 End: 09-06-[address] EVAN GILLESPIE Facility: Start: 05-30-2022 End: 05-31-2022 ambulatory Orlando Cole Facility:[facility] [place] [place] Start: 05-30-2022 End: 05-30-2022 Patient encounter procedure Orlando Cole [facility] Start: 11-12-2021 Encounter for genera l adult medical examination without abnormal findings DR EVAN GILLESPIE [facility] Start: 11-11-2021 End: 11-12-[address] EVAN GILLESPIE Facility:[facility] Start: 11-11-2021 End: 11-12-2021 Encounter for general adult medical examination without abnormal findings DR EVAN GILLESPIE Facility:[facility] Start: 09-20-2021 End: 09-21-2021 ambulatory Cameron Singleton Facility:[facility] [place] [place] Start: 09-10-2020 End: 09-11-2020 Evaluation and management of inpatient SR EVAN GILLESPIE [facility] Start: 09-10-2020 End: 09-11-2020 Evaluation and management of inpatient Magdaleno Rios Work Phone: [facility] Comment on above: Right leg weakness ( Primary Dx); Protruded lumbar disc; Postoperative pain Procedures Date Procedure Procedure Detail Performing Clinician Start: 09-11-2020 Fluoroscopy during operation Magdaleno Rios Work Phone: Start: 09-11-2020 Gluc bld gluc mntr d ev cleared fda spec home use Unknown Provider Result Start: 09-11-2020 Gluc bld gluc mntr d ev cleared fda spec home use Unknown Provider Result Start: 09-10-2020 Radex spine lumbosac ral minimum 4 views Celsa Alexander Work Phone: Start: 09-10-2020 Radiologic exam ches t single view Celsa Alexander Work Phone: Start: 09-10-2020 COVID-19 Celsa Hardy [facility] Work Phone: Start: 09-10-2020 Ecg routine ecg w/le ast 12 lds w/i&r Celsa Alexander Work Phone: Start: 09-10-2020 Blood count complete auto&auto difrntl wbc Celsa Alexander Work Phone: Start: 09-10-2020 Comprehensive metabo lic panel Celsa Alexander Work Phone: Start: 09-10-2020 Prothrombin time Celsa Alexander Work Phone: Start: 09-10-2020 Thromboplastin time partial plasma/whole blood Celsa Alexander Work Phone: Start: 09-10-2020 Mri spinal canal lum bar w/o contrast material Celsa Alexander Work Phone: Plan of Treatment Date Care Activity Detail Author Start: 09-24-2020 End: 09-24-2020 Office Visit 09/24/2020 Office Visit Neurosurgery Magdaleno Rios MD [address], [address] [place], [place] [id number] [employer] Start: 05-22-2020 Influenza vaccination Flu vaccine (# 1) [place], [place] Start: 2011 Screening for malign ant neoplasm of breast Breast cancer screen [place], [place] Start: 2011 Screening for malign ant neoplasm of colon Colon cancer screen colonoscopy [place] Start: 2011 Shingles Vaccine (1 of 2) Rachel gles Vaccine (1 of 2) [place] Start: 2001 Diabetes screen Diabetes screen [place], [place] Start: 2001 Lipid panel Lipid screen [place], [place] Start: 1982 Screening for malign ant neoplasm of cervix Cervical cancer screen [place], [place] Start: 1980 DTaP/Tdap/Td vaccine (1 - Tdap) DTaP/Tdap/Td vaccine (1 - Tdap) [place] Start: 1976 HIV screening HIV screen [place], [place] Start: 1961 Hepatitis C screening Hepatitis C sc reen [place] EKG 12 Lead - Chest Pain EKG 12 Lead - Chest Pain ECG STAT 09/10/2020 4:45 PM EST [place] Oxygen therapy [[facility] Data Set] Initiate Oxygen Therapy Protocol Respiratory Care Routine Daily until discontinued starting 09/10/2020 [place] Comment on above: Daily until disconti nued starting 09/10/2020 Surgical Pathology Surgical Path ology Lab Routine Release Upon Ordering for 1 Occurrences starting 09/11/2020 [place] Comment on above: Release Upon Orderin g for 1 Occurrences starting 09/11/2020 Payers Date Payer Category Payer Unknown [id number] [id number] 1961 Unknown [id number] [id number] 1961 Unknown [id number] [id number] 1961 Unknown [id number] 1961 Unknown [id number] [id number] 1961 Unknown [id number] 1959 Unknown [id number] Social History Date Type Detail Facility [facility]: 09-11-2020 [facility] [place] History of tobacco use Cigarette Smoker M [place], [place] Start: 09-11-2020 Cigarettes smoked current (pack per day) - Reported [place] Start: 09-11-2020 Tobacco use and exposure Never used [place] Start: 09-11-2020 Alcohol intake Lifetime non-d shobha (finding) [place] Start: 09-10-2020 History SDOH Alcohol Frequency 1 [place] Sex Assigned At Not on file [place] Exposure to SARS-CoV -2 (event) Not sure [place] Tobacco smoking status No Smokin g Status Entered [facility] Sex Assigned At Female [facility] Evaluation + Plan note Note Date & Type Note Facility Evaluation + Plan note No data available for this section [facility] Hospital Discharge instructions Note Date & Type Note Facility Hospital Discharge instructions No data available for this section [facility] Progress note Note Date & Type Note Facility Progress note No data available for this section [facility] Discharge Instructions * Instructions* Magdaleno Rios MD - 09/11/2020 medication given may have significant effects after discharge. Therefore on the day of surgery: 1) you should be accompanied by a responsible adult upon discharge and for 24 hours after surgery. Do not drive a motor vehicle, operate machinery, power tools or appliance, drink alcoholic beverages, or make critical decisions for 24 hours 2) Be aware of dizziness, which may cause a fall. Change positions slowly. 3) Eating: you may resume your regular diet but it is better to increase intake slowly with mild foods and working up to your regular diet. 4) Nausea/Vomiting: Nausea and vomiting may occur as you become more active or begin to increase food intake. If this should happen, decrease activity and return to liquids. 5) Pain: Your surgeon may have given you a prescription for pain medication. Take pain medication with food as prescribed. Pain medication may cause constipation, so drink plenty of fluids. You may need to use laxatives. 6) Ice: You may use a cool pack to operative site for 20 min 5-6 times a day as needed for comfort. 8) Dressing: Change dressing as frequently as needed to keep clean and dry. Remove all sticky tape in 5 days. May shower in three days. Do not put soap or soak on the incision until healed. 9) INCREASE ACTIVITY TOLERATED AND INSTRUCTED. GO BY HOW YOU FEEL. 10) See physical therapist when advised by your physician 11) Call your doctor at [phone] for an appointment (or follow up as scheduled). 12) If have an order for X-Rays have done within a week before your follow up appointment. ? Contact OFFICE IF o Increased redness, swelling, excess drainage, and/or pain to surgery site. As well as new onset fevers and or chills. These could signify an infection. o Calf or thigh tenderness to touch as well as increased swelling or redness. This could signify a clot formation. o Numbness or tingling to an area around the incision site or below the incision site (toes). Or ifthe operative extremity becomes cold, blue. o Any rash appears, increased or new onset nausea/vomiting occur. This may indicate a reaction to amedication. o Temp is 38.5 C (101F) 12) If you have any concerns or questions, please call OFFICE. The 24- hour phone is [phone] 13) If you are unable to contact your surgeon, in an emergency situation, go to the nearest hospital emergency room. 14) shower on Thursday 15) ice pack to the incision 16) no ointment to the incision 17) no driving documented in this encounter Assessments Diagnosis Right leg weakness- Primary Other musculoskeletal symptoms referable to limbs Protruded lumbar disc Displacement of lumbar intervertebral disc without myelopathy Postoperative pain Other acute postoperative pain Weakness of right leg Other musculoskeletal symptoms referable to limbs Advance Directives No Advanced Directives Records FoundLatest Code Status on File Code Status Date Activated Date Inactivated Comments Full Code 09/10/2020 11:28 PM 09/11/2020 6:33 PM Full Code 09/10/2020 4:37 PM 09/10/2020 11:28 PM Healthcare Agents on File Name Relationship Healthcare Agent Relationshi p Communication Manuel Dunne Spouse Primary Decision Maker Summary Purpose Family History No Family History Records FoundNo Family History Records FoundNo Family History Records FoundNo Family History Records FoundNo Family History Records Found Additional Source Comments Reason for Visit (unrecogniz ed section and content) Reason Comments Back Pain Status Reason Specialty Diagnoses / Procedures Referre d By Contact Referred To Contact Diagnoses Right leg weakness Weakness of right leg Magdaleno Rios MD [address], [place] [id number] [facility] Ordered Prescriptions (unrec ognized section and content) Prescription Sig Dispensed Refills Start Date End Da te senna (SENOKOT) 8.6 MG tablet Take 2 tablets by mouth 2 times daily 120 tablet 11 09/11/2020 09/11/2021 oxyCODONE-acetaminophen (PERCOCET) 5-325 MG per tabletIndications:Posto perative pain Take 1 tablet by mouth every 6 hours as needed for Pain for up to 14 days. Intended supply: 7 days. Take lowest dose possible to manage pain 28 tablet 0 09/11/2020 09/25/2020 cephALEXin (KEFLEX) 500 MG capsule Take 1 capsule by mouth 3 times daily for 7 days 21 capsule 0 09/11/2020 09/18/2020 INFORMATION SOURCE (unrecogn ized section and content) DATE CREATED AUTHOR [facility] [facility] DATE CREATED AUTHOR AUTHOR'S ORGANIZ ATION 10/21/2021 [facility] Special[facility] DATE CREATED AUTHOR AUTHOR'S ORGANIZ ATION 06/02/2022 Kai Lea [facility] DATE CREATED AUTHOR AUTHOR'S ORGANIZ ATION 09/12/2022 [facility] DATE CREATED AUTHOR AUTHOR'S ORGANIZ ATION 08/27/2023 [facility] d[facility] Specialists EPIC Care Team (unrecognized sect ion and content) Personnel Name: House DO, Evan P Address: [address] [place] [address] FOR RECORDS PERTAINING TO PATIENTS WHO ARE OR HAVE BEEN ENROLLED IN A CHEMICAL DEPENDENCY/SUBSTANCEABUSE PROGRAM, SOME INFORMATION MAY BE OMITTED. This clinical summary was aggregated from multiple sources. Caution should be exercised in using it in the provision of clinical care. This summary normalizes information from multiple sources, and as a consequence, information in this document may materially change the coding, format and clinical context of patient data. In addition, data may be omitted in some cases. CLINICAL DECISIONS SHOULD BE BASED ON THE PRIMARY CLINICAL RECORDS. [facility] provides no warranty or guarantee of the accuracy or completeness of information in this document.
== END 2023-09-26 06:59 | disposition home or self-care (01) ==
LOC: LAB 10-01 06:58
PROVIDERS: PCP Nurse Practitioner; Visit Provider Nurse Practitioner
DX: E11.9 Type 2 diabetes mellitus without complications (principal); E66.9 Obesity, unspecified; I10 Essential (primary) hypertension
CPT/HCPCS: 36415; 80053; 80061; 81001; 82043; 82570; 83036; 85025

== ENCOUNTER 2023-09-30 07:19 | Outpatient (OUT) | payer BC, SELFPAY ==
--- NOTE | 2023-09-30 | MM_ITS ---
Patient Name: JORDY PHILIP MR#: [id number] : 1960 Exam Date: 09/30/2023 Ordering Doctor: MAMADOU Daily CNP RADIOLOGY REPORT PROCEDURE: MM TOMOSYNTHESIS SCREENING BI COMPARISON: MG MAMM SCREEN 3D ANGELICA CAD, 09/05/2022. MAMMO ANGELICA SCREEN, 07/08/2013. MAMMO ANGELICA SCREEN, 01/08/2009. INDICATIONS: Angelica Screening Mammogram Calculator Name NCI Breast Cancer Risk Assessment Tool 5 Year Breast Cancer Risk Not Reported. Lifetime Breast Cancer Risk Not Reported. Personal Breast Cancer No Personal Ovarian Cancer No Treatments None Family Cancers None LOCATION: [facility] BREAST COMPOSITION: Scattered areas fibroglandular density. FINDINGS: DIAGNOSTIC CATEGORY 2--BENIGN FINDING: RIGHT BREAST: No significant suspicious finding. Stable, benign-appearing, small lymph node upper outer quadrant. No significant change has occurred. LEFT BREAST: No significant suspicious finding. No significant change has occurred. RECOMMENDATIONS: ROUTINE MAMMOGRAM AND CLINICAL EVALUATION IN 12 MONTHS. PLEASE NOTE: A NORMAL MAMMOGRAM DOES NOT EXCLUDE THE POSSIBILITY OF BREAST CANCER. A CLINICALLY SUSPICIOUS PALPABLE LUMP SHOULD BE BIOPSIED. Dictated by: Josh Rosales M.D. on 09/30/2023 at 10:38 Approved by: Josh Roasles M.D. on 09/30/2023 at 10:41
== END 2023-09-30 07:20 | disposition home or self-care (01) ==
LOC: MAMMO 07:19
PROVIDERS: PCP Nurse Practitioner; Visit Provider Nurse Practitioner
DX: Z12.31 Encounter for screening mammogram for malignant neoplasm of breast (principal)
CPT/HCPCS: 77063; 77067

== ENCOUNTER 2023-10-14 13:49 | Outpatient (OUT) | payer BC, SELFPAY ==
--- OUTSIDE RECORDS SUMMARY | 2023-10-14 14:03 | XMS_ITS | CCD ---
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 Phone House, Sr Evan Lu Primary Care Provider JOSE MIGUEL, SR EVAN Lu Primary Care Unavailable MAGDALENO RIOS Admitting Unavailable MAGDALENO RIOS Attending Unavailable Evan Gillespie Primary Care Physician [phone] Douglas, Orlando Boothe Admitting Unavailable Douglas, Orlando Booteh Attending Unavailable Douglas, Orlando Boothe Referring Unavailable Areli, Cameron Azul Admitting Unavailable Areli, Cameron Azul Attending Unavailable Areli, Cameron Azul Referring Unavailable JOSE MIGUEL, DR MARADIAGA Admitting Unavailable JOSE MIGUEL, DR MARADIAGA Primary Care Unavailable RICHLAND SPRINGS, DR MARADIAGA Consulting Unavailable RIC[place]AND SPRINGS, DR MARADIAGA Attending Unavailable [place], DR MARADIAGA Primary Care Unavailable R[place], DR MARADIAGA Consulting Unavailable R[place], DR MARADIAGA Attending Unavailable HOUSE, DR MARADIAGA Admitting Unavailable JOSELITO, DR JOSH Saenz Consulting Unavailable AJ, PARESH Attending Unavailable PARESH ROCHA Attending Unavailable Medications Current [...] (PF) injection 2 mg polyethylene glycol 3350 19341 mg powder for oral solution (1 source) [...] daily 0 09/10/2020 Discontinued (Therapy completed) sennosides, retirement 8.6 mg oral tablet (1 source) Start: [...] Reference Range Facility MG MAMM SCREEN 3D ANGELICA CADon 09-05-2022 MG MAMM SCREEN 3D ANGELICA CAD Patient: JORDY DUNNE Exam Date: 09/05/2022 : 1960 Gender:F Ordering : DR EVAN GILLESPIE D.O. Admission #: [id number] Family : Order #: [id number] CLICK HERE TO VIEW EXAM RADIOLOGY REPORT PROCEDURE: MAMMOGRAM SCREENING 3D BILATERAL CAD COMPARISON: MAMMO ANGELICA SCREEN, 07/08/2013. MAMMO ANGELICA SCREEN, 01/08/2009. INDICATIONS: Screening mammography Calculator Name NCI Breast Cancer Risk Assessment Tool 5 Year Breast Cancer Risk Not Reported. Lifetime Breast Cancer Risk Not Reported. Personal Breast Cancer No Personal Ovarian Cancer No Treatments None Family Cancers None LOCATION: [facility] BREAST COMPOSITION: Scattered areas fibroglandular [...] M.D. on 09/08/2022 at 13:34 Normal [facility] Coding Summary.on 06-02-2022 Coding Summary. [id number] G h0bWw+PGhlYWQ+KK7DMVM gC23enBGgjV3KU2dGTC2N KOGTAKGQMM0WII4ndHZ1H LlvD4JitcXh NpxsbKGmEJ80HRa6QMB2q KyeYCnktH8wmVGqB4m9Mr LtWI58xI00YBkgXZVpNtP 3LjZpbjsgbWFy C7ryCePfwFYnCeg+PHRhY mxlIHdpZHRoPScxMDAlJy JmuUznKT6rEr8tVAEzMUS vbGxhcHNlOiBj o5cyQKEtKDgrBE5gyZohH 7XjiLE2WMVqg5m0Sb49qL I+WGIlMTH6pPeqETayx93 5IaCet2xkNYU7 rTXoWQxfHLU5B75jf3O5R QCdWCKoQXT8cFX9bL0svE wchydwA6SupAKiJbF2EVW 2pDUibQ6kjQat dlywyB3aTbv+R96QSY3YQ CXSBG5GPdt0D8BeMeplkU I+HP84TSGdJN97pGFujMN eq5fjbZy6PgBj QLImFBV8fDjhZGrnr4ClZ WUgS26sdZUro4G7FZDbhX gtkQZgBxYebFV5eX3tVDq yqucqn8lfwvlq Rkrpt3mpbv83wT01U34aI AkfKQOvCDJ0KDXhTREhqG udlc1uiO4gLv6+XHlmk5s ug1ggnLd3SeKb OUCwtdDkbTirUSK1a2YbO k52M7LjtCgxb4SvKnr5ot 41wIFrh2G7cZU6LSywVQY foQ0dQQnsTrR8 MRQbGmVezY97mJEuFValN k1qcFnckLruHQ3vSFUxjq baPRWppA0oUHRuxEFmrFx oVK3aBZEoyoai j559BdMcWDZ3MOBdmIAkJ 9DauC5pRbKmMTUyANMzL8 GsnGSzGSwhA896EAdtMcX 4ETShifHzO9Hv MKMfgTxaMoX2h8R8Kb4Nf 1NemxfcCDO4HPqwYPJ1Ji LqAuPwDlS9W6UbYhk6ANR xhRepZS9vE4Ta KRLnfsukiiygoXC2XTLwQ UPtaB46bIBvRTexQm6qi6 X7h641QPEiAKGaqB97Jl8 udDogMTBwdCBU eF2pwkasj7ewtjjzQpWwA EGsUKr9XFn4SHVobIwkQg IzLZF5IcQ1VIC3zNCaeK5 xmBgkxffixP6f Oyc+X31jhH5xNFG0TQB6i uypIJSndvYhTM49GO72F6 RyPjwvdGFibGU+PGRpdiB fsQclNM8zCmDi p9fhb9LpYQfuE3FhINQiA KtsIsk3GEFjIME6zDK5rO 7eMRNkIBoby6K9yXV0U7R mqjMhzw4ba6az TVMuLHlfA58duVEsy5T0D ESxhPD0IAKqzFdbGaSywT 93Oyc+VXTjrBdyz5XxTeb dn8fzd5zgwBw0 MwTgBNAzpeGeuGeeYVZ8i 5AvLt50V73kZDwsWQWjYQ HfPJUkYHSzgLlqaf8mnN1 wIi8+PGNvbCB3 hMS6iU8gUHTbEwV7PTqvK 028ZhSeiGWpRkxml2dhd6 ufwIs9ZaGjMSVbgdAwpLe tLDZ7i6ZrNb12 T69oRAbeATUwHSTeLOQaW JFowNvklj4ipK2gYt8+PC 5et3loga36hB40aNU+PHR fHNG5iJgvXNzg DSXneB9vISagKpC0ZPLvO mYwuJ64nBPaOHsaLp5xnA hweActOF8aANInnqqif39 1OjUpe4ktOMMy mDOqTNwiMMU2R44me7Q0R VIzEKOrINE1fTB0lU3zqF lnbjogbGVmdDsgdmVydGl fNGcjVQamO330 IHRvcDsnPlBhdGllbnQgT oLoEDb4F4GmXxj0SVZriH xlJO9rzPOgLHgmUf9rwDx mtOnfIF7oYHRf rmvkd888OfWyv3aoHGEje KYzIHldWTF3F23zs0F9QS WvWILcGAQ8oKQ2dA1tmMn nbjogbGVmdDsg lgEfoTkvLIxeBJqeF573J HRvcDsnPkJpcnRoIERhdG I6AR78UF69dUQla6P9tOY 3I1UgEYGivbgk ttkzmCX7HZSbYGHnsK18Q h7uhJjoVz3bDJCkRAD4EG PezNEuB7VpjV9jTuZrWOZ rJZYyU2DacRSr SQwnZ662QDvoKoK2GDNgf aPpA8RmSMPoyEmtYyD1k8 M2Nz2HF2Y3YI65BA34eYD hl5U8mAV4N3Ie QAWhxnjqcqddoIJ1PFKiZ EKwuW21Qs6ufGlyPc7zMB ZpLQY9SSFvdUAwW8SqqJ5 yOiAjMDAwMDAw G4PtlFEjBKetD547WGrwV oW4AMGxbwBzS2MkNKDpeC klHxD0t6C3Gn6ITUi7SS7 6ZZ03nVGqz5Z2 vDC6L8SzVNHrxymsdiyql NX4UCXgKRJmwR30Rg4ndB gkTc5bUYXmVDK4OAVtjYZ bG2NtuX1bTdOe SXCnJECgX5TzmMAxDRlsQ 493CHxkMoY4UAMrgfPeA2 PzMQHkdBonKkD8v1Q0Xq6 DLLIsVT33IME1 dZB4OA60FK27K6BrWpcyl GFibGU+PHRhYmxlIHdpZH RoPScxMDAlJyBzdHlsZT0 uRt1vZUFaYENc lKctqJMiIwAqw5cyNFBdE NucIA5maQjsZ3WdtFA1PF Tuy3n7Ml89V41qN8QbsWP +CMStvUE4sTU4 bN0fNjYdYdO0TRayO760F fMhiLWtCwvzq5man9pvnN z3VyR8TOBdbjDdgBqjUWA 1r6WnBp81I99e IHdpZHRoPSIxNSUiIHZhb Wnklp9rkV6zKo5+PGNvbC W5bES6nE3fXqXcLyN0ZGw qW763XuTxlANm Vnqdv2wdi6tarYz5FjFaX XNezzUqkXwzMFE4r6MgDt 81N5BtgFlze3VfUhz4pg3 7eUYmf3Z3jIX7 F9CbXPNgvcghbTJsbLnsJ X7xXCAdwfniFZAgfW3yMZ EvD0x5AgFeDnX9IEtjI9O bjrO7VEKksXQv MTfeTIF9J99oa1S4FAJtQ EZgLRO1eTC6yN1hgAyxkp ogbGVmdDsgdmVydGljYWw lLDqnA808KVJh vYrxXVNraA1nFHJlcZLus BzoKY2sKMIbmengNx9EK9 JFLCBMVUNSRVRJQSBNPC9 7MQ89sYDeb7L5 nLQ5N0UpHYGgldqdluxad JM8RQGaCTJkkK24eFZtQG ihSo3rp0J8j208VOVnFBF yfT98Nd3osMbq KGOxrRTGhO1pnhego9avn etcEcVfDXPmYWy4GLl1JO MyqIovSdPeGQC0MiG4HFB 4yMDboQ0sxNwg dbcdeB3rClv+MDkvMTEvM Rs8TAdjhMJ+ERZhHEY1kX oqVKsuSEHpmT4hBTGiA2i 2AeOhEgQ2XBdp W7AiYEUoivbqZs25zN8cF mFfYsT5KCslX2EynsK7UM VjvNExOTevCGH8O62re9Q 3CWVwJWVeOMT0 oNP1mY7ebDyfyypyjJJdo DsgdmVydGljYWwtYWxpZ2 46IHRvcDsnPjYxIFllYXJ lNN00UX72kMWf t6I3vHX8N3MzTFQukyluc liuyES1SUEoFZXqrI98oL AfFDgqVh4lc3L4j027UAG vJECxbJ90Ro4y oXdxJYZyoBWRbG1makwmx 9licybeXpFaBNHpHEv5UF f2WTLjzPivAqLgHFQ5UeW 7IYA8bTAdbN8d yGmrfedhwF5oFcl+RmVtY MxtUP72AT23bTCxn7G1nB V5Y0ZtCBYlsrixsfrdvDK 5XBKjJRMxgU01 hFCgOEjnYi5jz8H6v694M AUmGJPjcN45Nk3usWfmBN CvwUTGjL5gfindi7btnym gIzAwMDAwMDt0 JPt5NBJkmZyySbIcQAU1M qC3PSH0iTVckF4ugYfdfa muyR0nAqb+J7P4fEN0rEA udDwvdGQ+PC90 ya12L2InTynqPax8TOTgN PB9eUE4zF5kTCFtBGdxj5 T7kJX8U5HqnaLfrc5sd9e pCNFiJWkrB92z aOSbf1M0TADmqQN3WLJls TwnJyYqlW73Jrp+PGNvbG ynu6QeQsynj5mfy7ezcPh 9IjMwJSIgdmFs pVzlUUI5n4KqEb27A62eD HdpZHRoPSIzMCUiIHZhbG zpel7vlR0mQi4+PGNvbCB 0qOD8lU1eSeXb ZpG0EOdcE072RyBqlHJaH nrrv3dho6vheNe5DwBeMT YvedLinPxmJXW8e1YeOv0 5P5OdzHpqz8Ha Rxi0bv80pKOih7Q7yEC3U 3BhZGRpbmctbGVmdDogMC 2tDQHkhqwnMQKtcT4wYJP sI6r4QjMzReY3 NWwbB6CpziT7KSBvkVXtR CCvvJZSaL0evdevv9yxky okSzMkJPErUFn4UHh8NGR saWduOiBsZWZ0 EfR4VMU5tYHkvS4xkHcoe rwqiK9wMzb+GOa8b5udgP VbVF6fdWZ2BV36AT59xUH hg5V0rMR4M2Wl JZLdzazilrgegAE4JJDkT AKusK60Tj5iaClnEb8zPV JjHQN1AZVhpWWvX2ZbnG7 yOiAjMDAwMDAw A6FyiNOyHCiyT403JUexV oJ0IPLlobVsA8JcZUBpjE anSfH8f6X6Ny5YSY67VQ2 9MR37rFFwj2K4 tQN1R0IiCONpswkktozda LH6LDSvHNNdiM12Xh3qmQ bjGj5bVEIpVXN1NSRvxIZ tL3BenT7oXmTe GBNaTOOyI7ZnnSQsHLbsI 861ESxxPrZ3QTFiqrFhA6 AnJYKpzKkmJoF2d3G9Xl2 VTr44ME16XR07 aIXxb6A1cZE5G5QfMEZfy wcmcrfxwNM9WUMcIDEsrQ 38Ln5hhCoxYv5dYDBkSKV 3GWFhsTWmD6Oj lR9lBkObGOZnDIWgK0Nln NInCEpqZ719HPezYxD2AV SiibSiL7LzQLVqyZheBbY 9j8T8Fm7SSTfj iwn4Y8HbGfdzdXC+PC90Y UNdOI45uYGqtKVkt0eosG c5KlAcZOKuQGN7aBxkIZl oz0UgGQCvH24y bGFw (more content not included)... Normal [facility] Auto Diffon 05-30-2022 Basophils/100 WBC (Bld) 0.6 % Normal 0.0-2.0 [facility] Comment on above: Order Comment: Order Added by Discern Expert. Performed By: #### 7 [id number], [id number], 7913374, 3715553, [id number] #### [facility] [address] [place] [address] Basophils/Leukocytes Auto (Bld) [Pure # fraction] 0.0 E9/L Normal 0.0-0.2 [facility] Comment on above: Order Comment: Order Added by Discern Expert. Performed By: #### 7 [id number], 2497176, 4860082, 1219864, [id number] #### [facility] [address] [place] [address] Eosinophils/100 WBC (Bld) 1.3 % Normal 0.0-8.0 [facility] Comment on above: Order Comment: Order Added by Discern Expert. Performed By: #### 7 [id number], 1638974, 7045871, 5487414, [id number] #### [facility] [address] [place] [address] Eosinophils/Leukocyte s Auto (Bld) [Pure # fraction] 0.1 E9/L Normal 0.0-0.5 [facility] Comment on above: Order Comment: Order Added by Discern Expert. Performed By: #### 7 [id number], 8188859, 2925334, 5252286, [id number] #### [facility] [address] [place] [address] Lymphocytes/100 WBC (Bld) 32.4 % Normal 14.0-50.0 [facility] Comment on above: Order Comment: Order Added by Discern Expert. Performed By: #### 7 [id number], 6154604, 2112059, 5125308, [id number] #### [facility] [address] [place] [address] Lymphocytes/Leukocyte s Auto (Bld) [Pure # fraction] 2.1 E9/L Normal 1.0-4.0 [facility] Comment on above: Order Comment: Order Added by Discern Expert. Performed By: #### 7 [id number], 4544319, 5561869, 3225393, 24228787 #### [facility] [address] [place] [address] Monocytes/100 WBC (Bld) 7.6 % Normal 4.0-14.0 [facility] Comment on above: Order Comment: Order Added by Discern Expert. Performed By: #### 7 [id number], 3887383, 9605650, 0369258, 84617071 #### [facility] [address] [place] [address] Monocytes/Leukocytes Auto (Bld) [Pure # fraction] 0.5 E9/L Normal 0.2-1.0 [facility] Comment on above: Order Comment: Order Added by Discern Expert. Performed By: #### 7 [id number], 1257165, 7021007, 4165506, 99807098 #### [facility] [address] [place] [address] Neutrophils/100 WBC (Bld) 58.1 % Normal 36.0-75.0 [facility] Comment on above: Order Comment: Order Added by Discern Expert. Performed By: #### 7 [id number], 0874377, 8904357, 4500700, 39625863 #### [facility] [address] [place] [address] Neutrophils/Leukocyte s Auto (Bld) [Pure # fraction] 3.7 E9/L Normal 2.0-7.5 [facility] Comment on above: Order Comment: Order Added by Discern Expert. Performed By: #### 7 [id number], 5228186, 8595341, 9198403, 45788079 #### [facility] [address] [place] [address] BMPon 05-30-2022 Anion gap [Moles/Vol] 11 mmol/L Normal 6-16 [facility] Comment on above: Performed By: #### 7 [id number], 9406785, 3805430, 9578935, 04407882 #### [facility] [address] [place] [address] Calcium [Mass/Vol] 9.1 mg/dL Normal 8.9-11.1 [facility] Comment on above: Performed By: #### 7 [id number], 1382383, 8049913, 2169200, 62858655 #### [facility] [address] [place] [address] Chloride [Moles/Vol] 102 mmol/L Normal 101-111 [facility] Comment on above: Performed By: #### 7 [id number], 8447305, 8965149, 4987951, 77521420 #### [facility] [address] [place] [address] CO2 [Moles/Vol] 28 mmol/L Normal 21-31 [facility] Comment on above: Performed By: #### 7 [id number], 4115975, 8113395, 6718617, 93498611 #### [facility] [address] [place] [address] Creatinine [Mass/Vol] 0.7 mg/dL Normal 0.5-1.3 [facility] Comment on above: Performed By: #### 7 [id number], 3500003, 1678722, 5582209, 67378311 #### [facility] [address] [place] [address] Glucose [Mass/Vol] 115 mg/dL Normal 55-199 [facility] Comment on above: Result Comment: If t his glucose result represents a fasting glucose, interpretation should refer to the following reference range: 55-99 mg/dL Performed By: #### 7 [id number], 7577554, 7386480, 5745238, 32509468 #### [facility] [address] [place] [address] Potassium [Moles/Vol] 4.1 mmol/L Normal 3.5-5.3 [facility] Comment on above: Performed By: #### 7 [id number], 3604015, 9180408, 8087450, 46768947 #### [facility] [address] [place] [address] Sodium [Moles/Vol] 137 mmol/L Normal 135-145 [facility] Comment on above: Performed By: #### 7 [id number], 0005659, 0197357, 6320630, 61692656 #### [facility] [address] [place] [address] Urea nitrogen [Mass/Vol] 14 mg/dL Normal 5-21 [facility] Comment on above: Performed By: #### 7 [id number], 6348276, 0312797, 3854601, 50615598 #### [facility] [address] [place] [address] Urea nitrogen/Creatinine [Mass ratio] 20 No Units Normal 10-20 [facility] Comment on above: Performed By: #### 7 [id number], 4581046, 2376797, 5206865, 09725838 #### [facility] [address] [place] [address] CBC w/ Auto Diffon Erythrocyte distribution width (RBC) [Ratio] 13.7 % Normal 10.9-14.2 [facility] Comment on above: Performed By: #### 7 [id number], 6709963, 5284871, 8741184, 91470967 #### [facility] [address] [place] [address] Hematocrit (Bld) [Volume fraction] 41.6 % Normal 34.0-46.0 [facility] Comment on above: Performed By: #### 7 [id number], 2735059, 4027321, 0313479, 77089279 #### [facility] [address] [place] [address] Hemoglobin (Bld) [Mass/Vol] 14.7 g/dL Normal 12.0-16.0 [facility] Comment on above: Performed By: #### 7 [id number], 8713726, 9071932, 0167919, 09257364 #### [facility] [address] [place] [address] MCH (RBC) [Entitic mass] 32.5 pg Normal 27.0-34.0 [facility] Comment on above: Performed By: #### 7 [id number], 9405580, 4279215, 7881428, 39069997 #### [facility] [address] [place] [address] MCHC (RBC) [Mass/Vol] 35.4 g/dL Normal 31.4-36.0 [facility] Comment on above: Performed By: #### 7 [id number], 6850018, 8562022, 0853698, 13277892 #### [facility] [address] [place] [address] MCV (RBC) [Entitic vol] 91.8 fL Normal 80.0-100.0 [facility] Comment on above: Performed By: #### 7 [id number], 5450279, 9025792, 6273162, 43452504 #### [facility] [address] [place] [address] Platelet mean volume (Bld) [Entitic vol] 9.3 fL Normal 6.4-10.8 [facility] Comment on above: Performed By: #### 7 [id number], 8546473, 2967286, 2262537, 46785475 #### [facility] [address] [place] [address] Platelets (Bld) [#/Vol] 181.0 E9/L Normal 150.0-500.0 [facility] Comment on above: Performed By: #### 7 [id number], 1752629, 3216828, 4486545, 87006185 #### [facility] [address] [place] [address] RBC (Bld) [#/Vol] 4.5 E12/L Normal 4.3-5.9 [facility] Comment on above: Performed By: #### 7 [id number], 5480913, 9556904, 3996701, 73092807 #### [facility] [address] [place] [address] WBC corrected for nucl RBC Auto (Bld) [#/Vol] 6.4 E9/L Normal 4.0-11.0 [facility] Comment on above: Performed By: #### 7 [id number], 8270912, 4656772, 3442081, 91059098 #### [facility] [address] [place] [address] CHEMISTRYOrdered By: SYSTEM SYSTEM on 05-30-2022 Anion gap [Moles/Vol] 11 mmol/L Normal 6 - 16 mEq/L [facility] Calcium [Mass/Vol] 9.1 mg/dL Normal 8.9 - 11. 1 mg/dL [facility] Chloride [Moles/Vol] 102 mmol/L Normal 101 - 1 11 mmol/L [facility] CO2 [Moles/Vol] 28 mmol/L Normal 21 - 31 mmol/L [facility] Creatinine [Mass/Vol] 0.7 mg/dL Normal 0.5 - 1.3 mg/dL [facility] GFR/1.73 sq M.predicted among blacks MDRD (S/P/Bld) [Vol rate/Area] mL/min/1.73 m2 Normal >=59mL/min/1. 73 m2 [facility] Chem S GFR/1.73 sq M.predicted among non-blacks MDRD (S/P/Bld) [Vol rate/Area] mL/min/1.73 m2 Normal >=59mL/min/1. 73 m2 [facility] Chem S Glucose [Mass/Vol] 115 mg/dL Normal 55 - 199 mg/dL [facility] Potassium [Moles/Vol] 4.1 mmol/L Normal 3.5 - 5.3 mmol/L [facility] Sodium [Moles/Vol] 137 mmol/L Normal 135 - 145 mmol/L [facility] Urea nitrogen [Mass/Vol] 14 mg/dL Normal 5 - 21 mg/dL [facility] Urea nitrogen/Creatinine [Mass ratio] 20 mg/mg Normal 10 - 20 [facility] CHEMISTRYOrdered By: Rubi jordan on 05-30-2022 HbA1c (Bld) [Mass fraction] 6.2 % High <=5.9% [facility] ChemAutoSS Consent for Treatmenton Consent for Treatment [id number]:127 Normal [facility] HEMATOLOGYOrdered By: SYSTEM SYSTEM on 05-30-2022 Basophils/100 [...] Normal 4.0 - 11.0 E9/L [facility] HemeAutoSS FfeD0jaq 05-30-2022 HbA1c (Bld) [Mass fraction] 6.2 % High <=5.9 [facility] Comment on above: Performed By: #### 7 [id number], 0205273, 4085625, 8722570, 93592540 #### [facility] [address] [place] [address] XR Chest 2 Viewson 2 XR Chest [...] Mike Oconnor M.D. Transcribed by: JODEE Technologist: CC Normal [facility] eGFRon 05-30-2022 GFR/1.73 sq M.predicted among blacks MDRD (S/P/Bld) [Vol rate/Area] mL/min/{1.73_m2} Normal >=59 [facility] Comment on above: Order Comment: Order added by Discern Expert. Result Comment: eGFR is race adjusted. AA=. Performed By: #### 7 [id number], 7692825, 3218470, 0484104, [id number] #### [facility] [address] [place] [address] GFR/1.73 sq M.predicted among non-blacks MDRD (S/P/Bld) [Vol rate/Area] mL/min/{1.73_m2} Normal >=59 [facility] Comment on above: Order Comment: Order added by Discern Expert. Result Comment: Automatic [employer] Winder arnulfo kidney disease could be indicated at eGFR's of less than 60 mL/min/1.73m2. Kidney failure is indicated at less than 15 mL/min/1.73m2. Performed By: #### 7 [id number], 4745149, 3068534, 0109533, 65818615 #### [facility] [address] [place] [address] Physician Orderon 05-08-2022 Physician Order [id number]:127 Normal [facility] CBC AUTO DIFFon 11-11-2021 BASO # 0.0 103/ul Normal 0.0-0.1 [facility] Comment on above: Performed By: #### C BC #### [facility] [address] [address] [address] Farhat Mcneil Basophils/100 WBC (Bld) 0.6 % Normal 0.2-2.0 [facility] Comment on above: Performed By: #### C BC #### [facility] [address] [place] [address] Dr. Farhat Mcneil EO # 0.1 103/ul Normal 0.0-0.7 [facility] Comment on above: Performed By: #### C BC #### [facility] [address] [place] [address] Dr. Farhat Mcneil Eosinophils/100 WBC (Bld) 1.1 % Normal 0.9-7.0 [facility] Comment on above: Performed By: #### C BC #### [facility] [address] [place] [address] Dr. Farhat Mcneil Erythrocyte distribution width (RBC) [Ratio] 12.3 % Normal 11.0-15.0 [facility] Comment on above: Performed By: #### C BC #### [facility] [address] [place] [address] Dr. Farhat Mcneil Hematocrit (Bld) [Volume fraction] 43.6 % Normal 36.0-48.0 [facility] Comment on above: Performed By: #### C BC #### [facility] [address] [place] [address] Dr. Farhat Mcneil Hemoglobin (Bld) [Mass/Vol] 15.0 g/dL Normal 12.0-16.0 [facility] Comment on above: Performed By: #### C BC #### [facility] [address] [place] [address] Dr. Farhat Mcneil IG # 0.02 10e3/ul Normal 0.00-0.03 [facility] Comment on above: Performed By: #### C BC #### [facility] [address] [place] [address] Dr. Farhat Mcneil IG % 0.3 % Normal 0.0-0.5 [facility] Comment on above: Performed By: #### C BC #### [facility] [address] [place] [address] Dr. Farhat Mcneil LYMPH # 2.2 103/ul Normal 1.2-3.8 [facility] Comment on above: Performed By: #### C BC #### [facility] [address] [place] [address] Dr. Farhat Mcneil Lymphocytes/100 WBC (Bld) 31.0 % Normal 20.5-60.0 [facility] Comment on above: Performed By: #### C BC #### [facility] [address] [place] [address] Dr. Farhat Mcneil MANUAL DIFF REQ NO Normal [facility] Comment on above: Performed By: #### C BC #### [facility] [address] [place] [address] Dr. Farhat Mcneil MCH (RBC) [Entitic mass] 31.5 pg Normal 26.7-34.0 [facility] Comment on above: Performed By: #### C BC #### [facility] [address] [place] [address] Dr. Farhat Mcneil MCHC (RBC) [Mass/Vol] 34.4 g/dL Normal 29.9-35.2 [facility] Comment on above: Performed By: #### C BC #### [facility] [address] [place] [address] Dr. Farhat Mcneil MCV (RBC) [Entitic vol] 91.6 fL Normal 81.0-99.0 [facility] Comment on above: Performed By: #### C BC #### [facility] [address] [place] [address] Dr. Farhat Mcneil MONO # 0.5 103/ul Normal 0.3-0.8 [facility] Comment on above: Performed By: #### C BC #### [facility] [address] [place] [address] Dr. Farhat Mcneil Monocytes/100 WBC (Bld) 6.3 % Normal 1.7-12.0 [facility] Comment on above: Performed By: #### C BC #### [facility] [address] [address] [address] Farhat Mcneil NEUT # 4.3 103/ul Normal 1.4-6.5 [facility] Comment on above: Performed By: #### C BC #### [facility] [address] [place] [address] Dr. Farhat Mcneil Neutrophils/100 WBC (Bld) 60.7 % Normal 43.0-75.0 [facility] Comment on above: Performed By: #### C BC #### [facility] [address] [place] [address] Dr. Farhat Mcneil Platelet mean volume (Bld) [Entitic vol] 10.6 fL Normal 9.5-13.5 [facility] Comment on above: Performed By: #### C BC #### [facility] [address] [place] [address] Dr. Farhat Mcneil PLT 187 103/ul Normal 150-450 [facility] Comment on above: Performed By: #### C BC #### [facility] [address] [place] [address] Dr. Farhat Mcneil RBC 4.76 106/ul Normal 4.20-5.40 [facility] Comment on above: Performed By: #### C BC #### [facility] [address] [place] [address] Dr. Farhat Mcneil WBC 7.1 103/ul Normal 4.0-11.0 [facility] Comment on above: Performed By: #### C BC #### [facility] [address] [place] [address] Dr. Farhat Mcneil LIPID PROFILEon 11-11-2021 CHOL-HDL RATIO NORM SEE BELOW Normal [facility] Comment on above: Result Comment: 3.3 - 4.4 LOW RISK 4.4 - 7.1 AVERAGE RISK 7.1 - 11.0 MODERATE RISK >11.0 HIGH RISK Performed By: #### L IPID, T4, CMP, TSH #### [facility] [address] [address] [address] Farhat Mcneil Cholesterol [Mass/Vol] 286 mg/dL Critically high <=200 [facility] Comment on above: Performed By: #### L IPID, T4, CMP, TSH #### [facility] [address] [address] [address] Farhat Mcneil Cholesterol in HDL [Mass/Vol] 44 mg/dL Normal [facility] Comment on above: Performed By: #### L IPID, T4, CMP, TSH #### [facility] [address] [address] [address] Farhat Mcneil Cholesterol in LDL [Mass/Vol] 187.2 mg/dL Normal [facility] Comment on above: Performed By: #### L IPID, T4, CMP, TSH #### [facility] [address] [address] [address] Farhat Mcneil Cholesterol.total/Cho lesterol in HDL [Mass ratio] 6.5 {ratio} Normal [facility] Comment on above: Performed By: #### L IPID, T4, CMP, TSH #### [facility] [address] [address] [address] Farhat Mcneil HDL NORMAL > or = 60 mg/dl - LO W CARDIOVASCULAR RISK <40 mg/dl - HIGH CARDIOVASCULAR RISK Normal [facility] Comment on above: Performed By: #### L IPID, T4, CMP, TSH #### [facility] [address] [address] [address] Farhat Mcneil LDL CALC NORMAL SEE BELOW Normal [facility] Comment on above: Result Comment: <100 mg/dl OPTIMAL 100 - 129 mg/dl NEAR OR ABOVE OPTIMAL 130 - 159 mg/dl BORDERLINE HIGH 160 - 189 mg/dl HIGH >190 mg/dl VERY HIGH Performed By: #### L IPID, T4, CMP, TSH #### [facility] [address] [address] [address] Farhat Mcneil Triglyceride [Mass/Vol] 274 mg/dL Critically high <=150 [facility] Comment on above: Performed By: #### L IPID, T4, CMP, TSH #### [facility] [address] [address] [address] Farhat Mcneil VLDL CALC 54.8 mg/dL Normal [facility] Comment on above: Performed By: #### L IPID, T4, CMP, TSH #### [facility] [address] [address] [address] Farhat Mcneil PROF 14(COMP METB)on 022 Albumin [Mass/Vol] 3.8 g/dL Normal 3.5-5.0 [facility] Comment on above: Performed By: #### L IPID, T4, CMP, TSH #### [facility] [address] [place] [address] Dr. Farhat Mcneil Albumin/Globulin [Mass ratio] 1.0 {ratio} Normal [facility] Comment on above: Performed By: #### L IPID, T4, CMP, TSH #### [facility] [address] [address] [address] Farhat Mcneil ALP [Catalytic activity/Vol] 102 U/L Normal 38-126 [facility] Comment on above: Performed By: #### L IPID, T4, CMP, TSH #### [facility] [address] [address] [address] Farhat Mcneil ALT [Catalytic activity/Vol] 46 U/L Normal 9-52 [facility] Comment on above: Performed By: #### L IPID, T4, CMP, TSH #### [facility] [address] [address] [address] Farhat Mcneil Anion gap [Moles/Vol] 9.2 mmol/L Normal [facility] Comment on above: Performed By: #### L IPID, T4, CMP, TSH #### [facility] [address] [address] [address] Farhat Mcneil AST [Catalytic activity/Vol] 21 U/L Normal 14-36 [facility] Comment on above: Performed By: #### L IPID, T4, CMP, TSH #### [facility] [address] [address] [address] Farhat Mcneil Bilirubin [Mass/Vol] 0.3 mg/dL Normal 0.2-1.3 [facility] Comment on above: Performed By: #### L IPID, T4, CMP, TSH #### [facility] [address] [address] [address] Farhat Mcneil Calcium [Mass/Vol] 9.0 mg/dL Normal 8.4-10.2 [facility] Comment on above: Performed By: #### L IPID, T4, CMP, TSH #### [facility] [address] [place] [address] Dr. Farhat Mcneil Chloride [Moles/Vol] 103 mmol/L Normal 98-107 [facility] Comment on above: Performed By: #### L IPID, T4, CMP, TSH #### [facility] [address] [address] [address] Farhat Mcneil CO2 [Moles/Vol] 30.7 mmol/L Critically high 22.0-30.0 [facility] Comment on above: Performed By: #### L IPID, T4, CMP, TSH #### [facility] [address] [place] [address] Dr. Farhat Mcneil Creatinine [Mass/Vol] 0.75 mg/dL Normal 0.52-1.04 [facility] Comment on above: Performed By: #### L IPID, T4, CMP, TSH #### [facility] [address] [place] [address] Dr. Farhat Mcneil EGFR-AF CONGOLESE >60 Normal >=60 [facility] Comment on above: Performed By: #### L IPID, T4, CMP, TSH #### [facility] [address] [place] [address] Dr. Farhat Mcneil EGFR-NON AF CONGOLESE >60 Normal >=60 [facility] Comment on above: Performed By: #### L IPID, T4, CMP, TSH #### [facility] [address] [place], [place] [id number] Dr. Farhat Mcneil Globulin (S) [Mass/Vol] 3.7 g/dL Normal [facility] Comment on above: Performed By: #### L IPID, T4, CMP, TSH #### [facility] [address] [place] [address] Dr. Farhat Mcneil Glucose [Mass/Vol] 126 mg/dL Critically high 74-106 T [facility] Comment on above: Performed By: #### L IPID, T4, CMP, TSH #### [facility] [address] [address] [address] Farhat Mcneil Potassium [Moles/Vol] 3.9 mmol/L Normal 3.4-5.0 [facility] Comment on above: Performed By: #### L IPID, T4, CMP, TSH #### [facility] [address] [place] [address] Dr. Farhat Mcneil Protein [Mass/Vol] 7.5 g/dL Normal 6.1-8.2 [facility] Comment on above: Performed By: #### L IPID, T4, CMP, TSH #### [facility] [address] [address] [address] Farhat Mcneil Sodium [Moles/Vol] 139 mmol/L Normal 137-145 [facility] Comment on above: Performed By: #### L IPID, T4, CMP, TSH #### [facility] [address] [address] [address] Farhat Mcneil Urea nitrogen [Mass/Vol] 11.0 mg/dL Normal 7.0-17.0 [facility] Comment on above: Performed By: #### L IPID, T4, CMP, TSH #### [facility] [address] [address] [address] Farhat Mcneil Urea nitrogen/Creatinine [Mass ratio] 14.7 mg/mg Normal [facility] Comment on above: Performed By: #### L IPID, T4, CMP, TSH #### [facility] [address] [address] [address] Farhat Mcneil T4on 11-11-2021 T4 [Mass/Vol] 7.60 ug/dL Normal 5.53-11.00 [facility] Comment on above: Performed By: #### L IPID, T4, CMP, TSH #### [facility] [address] [place], [place] [address] Dr. Farhat Mcneil TSHon 11-11-2021 TSH 2.278 uIU/mL Normal 0.470-4.680 [facility] Comment on above: Performed By: #### L IPID, T4, CMP, TSH #### [facility] [address] [place], [place] [address] Dr. Farhat Mcneil TSH RANGE SEE BELOW Normal [facility] Comment on above: Result Comment: <0.3 4 UIU/ml HYPERTHYROID 0.34-5.60 UIU/ml EUTHYROID >5.60 UIU/ml HYPOTHYROID Performed By: #### L IPID, T4, CMP, TSH #### [facility] [address] [place], [place] [address] Dr. Farhat Mcneil MRI Shoulder w/o + [...] Josh Salguero on 10/21/2021 0956 Normal [facility] Coding Summary.on 10-05-2021 Coding Summary. CD:[id number] G h0bWw+PGhlYWQ+PQ3MURC cD15avFLfhK0LZ3wKMU0B ZKVOURJNPO9TFG9cjZU0A HngM4GdnjXz MxvdvYHwLY92QCz3XNK7l UyyZZagkG5exFRoG6e2Tt LvXS09wF20SCotFYJbZkI 3LjZpbjsgbWFy I4saGeHkbBVnEjb+PHRhY mxlIHdpZHRoPScxMDAlJy UcrMjtXS0hRx0sIKDsTQH vbGxhcHNlOiBj m6jpAQGbNOpgLJ3npNpjI 2RcuHR0PKToa5z4Bp48dY I+SJNnMAC5xGrrXXjer04 9QtDyv8zlJCG2 aYKeZHozOOU3K49ku5M7Y BLuQMGkCKT7cMY6gH0qfM avntjmP9QcwYEsAkA0ELA 6bFGqnD7ssOsx xczcpD7oGlj+C36EED9AW DDONY2HGzx5N4GvGkxvtI I+ZO97ZLMpLE61oTDlxHZ qw9fkqCk0TxXw ROKiZYZ3oCpaWJyhi9NcV EQpO01ujBCxr8L4DJMufW hkdBUwDsHrkGU3mI7jIXw tnggqe6dniqoy Sgbnz9lsvr72uV57R59aT LwlHHYjSKE4NJMoADCesY cyos7zwB6aDg2+ZTbsa0z cc3vptKf1MmRq FAQvwlHiwBekSLN2z9HfO e65I0QnkRrba3MoEvl8uj 12yOMbe8V7hGC1LSctEJP poO5vVDfbFwT8 XVGhWyUroQ35xZHkFHdxG d7xtLlndIglDE3lWKNxcn olHFMiaF7jJGRjmKRdnSj oAY6mPTFqisqw s770OmKnZQE3VKPmoDRnG 6OryE0aLgFrGQOtFEQwB2 JnzGElOPpuA987GGzmJuW 4KRRrcdIxN2Pb HNDxdQryAcE3v4S4Su9Jn 8JnzsupNYR1MVqsNPDwIc K0ZzZpSeF7V8JrYec4NGY ggMrhZT8gS3Qr RJFswioxdowgbTH9OVTqA WUxmN98lGSjJZxwKd2yp9 O7d372HMTbIWCtaU32Vd2 udDogMTBwdCBU kO7imlqkr2nlptkfKkCiN EXrFAi3MHv8NMZbpXkvFg DcFRX7ZnN4BIE7uWWcrQ5 alHodhkmshH7z Oyc+D04gqH9kBTG0EML9h qsgSYDkxwKhBW52EG71K1 RyPjwvdGFibGU+PGRpdiB qfThnEK4jHhQp k8tvr1ZbVScpA2HfCOLkY NoaIiq3DDZfYDK9rZB1gQ 0wCFTyQNmpv5V6zOF8O4H ubkUvnm5cu1sz TGTrYEooA42mtHAfe8B9Y WScmMA3WRRodXwhHvXfrJ 93Oyc+RGHheFhgg5HoJuv wm4boi3kzjQq4 IiQzBFAinuCojJkmUQE2b 6YsSx94N96rNAwsHEEiAV UhWWNoONCysLmbmb9luM1 wIi8+PGNvbCB3 iMA4aS5wKXQiZsT9HRaaD 978VlRobPZvDjsov7fea9 imaWn6RhKzIHEjbsZggId zHEF9d4YeLb16 A75pKFalVPCjJSJuYOLyA BIrwHtxjc6uxH4jIx3+PC 6ng4wgsv24dE03gRX+PHR yJWR2aThwGVsj NENtgF6nGVgyDhN8CEJaN uMujM40vQMjVUplKr3jeU ifkBfpFA9aLLCudydlq05 1AlPfo4huXJVh jMKoJCksURV5M02xy1W5O MMiBRGaNSQ6wTA9iT4lrX lnbjogbGVmdDsgdmVydGl nNOfgXJieM121 IHRvcDsnPlBhdGllbnQgT pSjVHo5A4YoAmf8DMPebH ozVK9cuBJrOVrqTt6fcTl nuMdqQK6sVFMp jbzvk319UwQmy9lcECXjg YCeBExaFRL9C54cc1M7IG JmYVMyEIS5tNM9hO9iyZn nbjogbGVmdDsg jiJnuNppTRciTYwoE758V HRvcDsnPkJpcnRoIERhdG P9HM37KK91eVBsf7M2mON 1O8CbMXEiblrf khyutHX0HVKsYSMywT90H c1jwCxiTo3dYBFiFDB6QD HlqWXgU5BcuN8qGsEaSEP dUSDlX1QkwBFf JKstV292NJacAmZ7QAGxh tTfM9JwVLUqfOgePvG8l3 P1Pw3KK4F8CH93KB09nFY qg6A5tBT5P3Rf FVQcdnhmxxcafGJ5IKDxO GHeiR25Rw4hpHitSx8gEB BcWWQ4QZSxzQAaW9FrxO9 yOiAjMDAwMDAw Z3HqpNQhZRfjS980RXscU aC0MPXjkwEiB7FrKAUroK lvUeV2q8C2Kg6EJGv9OH3 7GI78nADvm8H0 oTT3J7KlCPLckaylbfdcm FF5YJWuNXOajD50Tn3jvD goOc6nNGXeBBR0XDPecBB oZ8HfgE8dAvRi FIPxSBWyV2KqeROqERiiI 435DDnuSrB6FXDseoIsR9 RuGHDtjLelOwX0t2L9Ty7 ADIEiDU36YDO1 hLQ8KK36IL28Z4XiCplxx GFibGU+PHRhYmxlIHdpZH RoPScxMDAlJyBzdHlsZT0 xJy0wJKQuKHNz jGudtMXlUyPeo8xbZKMkH VrfVG2dxFjxE5CkxTL5HI Zmg4c2Wy64R45cH7OjgDE +IVJcsKK0zKV1 zA5tPnMaXaL3POqgJ122G sCgtDBeOdqlh8iyu0kmpR y3OcW7ZBBdjqIsaRavPMF 0e6FkVb96J79g IHdpZHRoPSIxNSUiIHZhb Cqtvc7uuW5xQe0+PGNvbC O0nVX6cD2yHiNaAzE9URt hA133IxNqkMOf Idvuh1gzr8sryOu1VqHhO ELxvrBspJkdFTC1a5JqAb 09P0QrfCgnv4TcTrf5gv7 8jOTfq0R3gTB1 E0JiHZElfvfdySIobUjoG K6iICBxqytwUQEmfK5uIC SdZ6t1YqHfUbC5WOrdW9O scuP8XQZnwTNa OJviQKM9G38dp7X0UHEpD XGoIMO3cLZ7yB3jjLlrsa ogbGVmdDsgdmVydGljYWw xYCikX749GATv sRfyKYRziB8eTZAwbKSga ZjiKQ2fSRQupmqiBr2JS8 JFLCBMVUNSRVRJQSBNPC9 7WU37zOMly6U6 dIL6E0JpGYOkoltvqibnf VH1YKPxBBCqbW49yFWqUA peJu3qn2K7w587QBYxKFJ qdD85Ip2tmCvy RIIkkDSGcY5aqtwaz5ldk tqdMiUyIDMhLAq6SMw9PT OgrByzJwZyQSU1OlC3AAH 7fOCinI0raMqm papaqW0sLkw+MDkvMTEvM He7ESlgcHN+RISlUZZ6cS jzUFejMVAddH1hCAFkE8x 4QxRmXzR5RFjk A1YiIUUbshysMw72oL6uK rAaXsK7MGmfG4HvleY2WE NdoQUeWUxtZUK8C44tv9P 1DFEhFDRvGUI6 lQP1oC0gdDotcxbihREbm DsgdmVydGljYWwtYWxpZ2 46IHRvcDsnPjYwIFllYXJ bPW36ER97wHUw c7J3bNO4G3WaKLYoauyqm imngUJ7COMgXTBdwU55rK NiXAbqPq1cu6G4c920LNP mICFqgP17Bi8c eSpoRXNltGCKqA3jqtvap 8efeqvhTlYySQMvCJp1JX v4XPNaaOubTqWxWTK4DuU 5DUO9tDGioA4k fXzsjzrmsZ6bJre+RmVtY SycYP63RS93oFUbz1X8bQ P4Y9NxKQJymipqzouzgAR 5OSHdIMVxdO03 qJQxWTfpYf4sn0B2l232L HMyZLYnxZ07Nw5xlTaeQI MhnPGQtZ0vesckl6oyvfi gIzAwMDAwMDt0 DGc6TUZkzWwlXiAjVXL6X oO5SXB9hKNgmG2kjYksuj hjeE6iJzv+Q0L8nTX8wDI udDwvdGQ+PC90 mv63Q5NtQsnvJve8JVNaQ BF2lUF3sH8zKEIvOPfen6 O4gPK1B0HuayUryh3fc4u aYVPiDQfhP14k kVOwc0N0XLNcyAT3ZQIuh QfnYiUphC72Yqg+PGNvbG ywe0ZaPymlx7ymy4cheRy 9IjMwJSIgdmFs rUneQLA4r3FiSk36O57lR HdpZHRoPSIzMCUiIHZhbG utjb6xkU8eMw7+PGNvbCB 2vAC8jZ8eTlRn XsW9DIjsF043EtTubYOuQ ulfc7vgf4czrWw0MfGcKS EbkpTzxVrqRJA5i8NpAo7 2U5ZreUcrn1Cl Vwn0rw33nQDbb9X3yGI9O 3BhZGRpbmctbGVmdDogMC 7fJDVldnmaBAFkzC9yRUC jH6t3AwRzAyY8 ZGibB3IuiqD3MXPevCSzC YEreQKBvU2hguxkv7ibhz xwFvFjSONbIBz5JQr3SEL saWduOiBsZWZ0 KoS9ECA8dLGqwS6amRuwo mrhpT6kZak+ZZv2v9xewK DuGP1rkRU8ZC96ES49gEK qt4Z9wDW4Y8Hg KVAclypdpnsgfKQ9FSKnE RWiqT25Mg4gcKgzKe3nFF KuFZN5BGRreIWtU6DqbE9 yOiAjMDAwMDAw U9FyqAHiZLawM763PFrjF nR7VUYcmrDpY5RcXDHplQ zgAbW2c1I0Dr4SDF57BK8 6QA94uRIbr5O8 cFG3F9GlBFWicfdzrfqco HQ7OAIiOQZimK46Gj9beS dcGa7sOKRnPCN8YGRakJS gV4HraF1aRxFe JNQpUJIrM6OauGSsNDqwK 855PAzjSyG2PJNtrqOsM0 UkXHTsuHaxHfG8n0S5Iy2 ZNt13YL49OM53 pKZkb6S7mDY5Y6SfTCNen hzeddkfiGE9GEVqUCZbxW 31Ln0ljLteAg5xCGClTEL 4ZTLowCCyE6Qq aM1kBcNxWRAdHCSsE5Xco BMtWDjhV009PUbgJvI3MF RsvyYoY5JpPOErcKhtSqX 2w3Z6Ox9JLTcz gwr7L6ZmTwjteVF+PC90Y LYcID27dLRtcSGzm5ojhU f3TySiZGQmYLH3kImoKSf ln2GxGNQtE59x bGFw (more content not included)... Normal [facility] Consent for Treatmenton 12-3 Consent for Treatment [id number] Normal [facility] NM Bone Scan 3 Phaseon 09-20 NM [...] 21.3 Imaging Post Administration (hrs): 3 Normal [facility] Physician Orderon 09-12-2021 Physician Order [id number]# [id number]:127 Normal [facility] MRI Shoulder w/o Lefton 0 MRI Shoulder [...] by Jackson Ma on 08/28/2021 0949 Normal [facility] FLUORO FOR SURGICAL PROCEDUR ESon 09-11-2020 FLUORO [...] Phillip Corral MD 09/11/20 Final result Normal [facility] Rory, Chpo Incoming Radiant Results From Multist[facility]/Pacs - 09/11/2020 5:09 PM EST FLUORO FOR SURGICAL PROCEDURES : 09/11/2020 3:53 PM CLINICAL HISTORY: Lumbar Diskectomy . COMPARISON: None available. Intraoperative fluoroscopy was provided for Dr. Gabriel gonzalez. A total of 1 seconds of fluoroscopy was used, with 4 fluoroscopic stills saved. No diagnostic images were obtained. Please see Dr. Rios surgical notes for completeness. [place] FLUORO FOR SURGICAL PROCEDURES : 09/11/2020 3:53 PM CLINICAL HISTORY: Lumbar Diskectomy . COMPARISON: None available. Intraoperative fluoroscopy was provided for Dr. Gabriel gonzalez. A total of 1 seconds of fluoroscopy was used, with 4 fluoroscopic stills saved. No diagnostic images were obtained. Please see Dr. Rios surgical notes for completeness. [place], [place] POCT Glucoseon 09-11-2020 Glucose [Mass/Vol] 145 mg/dL Critically high 60-115 M [facility] Comment on above: Performed By: #### P GLU #### [facility] [address] [place] [address] POC Performed on ACCU-CHEK Normal [facility] Comment on above: Performed By: #### P GLU #### [facility] [address] [place] [address] Glucose [Mass/Vol] 145 mg/dL High 60 - 115 mg/dl [place], [place] Interpretation and review of laboratory results Abnormal [place] Performed on ACCU-CHEK [place], [place] Glucose [Mass/Vol] 131 mg/dL Critically high 60-115 M [facility] Comment on above: Performed By: #### P GLU #### [facility] [address] [place] [address] POC Performed on ACCU-CHEK Normal [facility] Comment on above: Performed By: #### P GLU #### [facility] [address] [place] [address] Glucose [Mass/Vol] 131 mg/dL High 60 - 115 mg/dl [place] Interpretation and review of laboratory results Abnormal [place] Performed on ACCU-CHEK [place] Surgical Specimenon 09-11-20 Surgical Specimen [facility] [address] [place] [address] [id number] FINAL SURGICAL PATHOLOGY REPORT Patient Name: JORDY DUNNE Accession No: [id number] Age Sex: 1960 Location: [place] [address] Account No: [id number] Collected: 09/11/2020 [facility] Rec No: [id number] Received: 09/12/2020 Attend Phys: MAGDALENO RIOS Completed: [...] one cassette after brief decalcification. ALIFA/ALIFA CPT: 48755 X1 15132 X1 VENKATESH COTTON M.D. 09/13/2020 Electronically signed out by Page 1 of 1 [facility] Comment on above: Performed By: #### S UR #### [address] [address] XR CHEST PORTABLEon 09-11-20 20 INR Coag (Bld) [Relative time] NO ACUTE ACTIVE CARDIOPULMONARY PROCESS [place] EXAMINATION: CHEST PORTABLE VIEW CLINICAL HISTORY: Back pain COMPARISONS: None FINDINGS: Single views of the chest is submitted. The cardiac silhouette is enlarged. Pulmonary vascular unremarkable. Right sided trachea. No focal infiltrates. No Pneumothoraces. [place] Rory, Chpo Incoming Radiant Results From [employer] - 09/11/2020 7:58 AM EST EXAMINATION: CHEST PORTABLE VIEW CLINICAL HISTORY: Back pain COMPARISONS: None FINDINGS: Single views of the chest is submitted. The cardiac silhouette is enlarged. Pulmonary vascular unremarkable. Right sided trachea. No focal infiltrates. No Pneumothoraces. IMPRESSION: NO ACUTE ACTIVE CARDIOPULMONARY PROCESS [place] XR LUMBAR SPINE (MIN 4 VIEWS )on 09-11-2020 Rory, Chpo Incoming Radiant Results From [facility]/Pacs - 09/11/2020 10:22 AM EST EXAMINATION: XR [...] show degenerative changes.. IMPRESSION NO ACUTE FRACTURE. [place] EXAMINATION: XR LUMBAR SPINE (MIN 4 [...] show degenerative changes.. IMPRESSION NO ACUTE FRACTURE. [place] APTTon 09-10-2020 aPTT Coag (Bld) [Time] 30.5 s [place] Comment on above: Effective 07/25/2020: Heparin Therapeutic Range: 64.0 98.0 seconds. CBC Auto Differentialon 08-22 Basophils (Bld) [#/Vol] 0.1 10*3/uL 0 - 0.2 K/uL [place] Basophils/100 WBC (Bld) 0.7 % [place] Eosinophils (Bld) [#/Vol] 0.0 10*3/uL 0 - 0.7 K/uL [place] Eosinophils/100 WBC (Bld) 0.2 % [place] Erythrocyte distribution width (RBC) [Ratio] 13.2 % 11.5 - 14.5 % [place] Hematocrit (Bld) [Volume fraction] 41.0 % 37 - 47 % [place] Hemoglobin (Bld) [Mass/Vol] 14.2 g/dL 12 - 16 g/dL [place] Interpretation and review of laboratory results Abnormal [place] Lymphocytes (Bld) [#/Vol] 2.9 10*3/uL 1 - 4.8 K/uL [place] Lymphocytes/100 WBC (Bld) 25.0 % [place] MCH (RBC) [Entitic mass] 32.9 pg High 27 - 31.3 pg [place] MCHC (RBC) [Mass/Vol] 34.6 % 33 - 37 % [place] MCV (RBC) [Entitic vol] 95.0 fL 82 - 100 fL [place] Monocytes (Bld) [#/Vol] 0.4 10*3/uL 0.2 - 0.8 K/uL [place] Monocytes/100 WBC (Bld) 3.8 % [place] Neutrophils Absolute 8.2 K/uL High 1.4 - 6 .5 K/uL [place] Neutrophils/100 WBC (Bld) 70.3 % [place] Platelets (Bld) [#/Vol] 196 10*3/uL 130 - 400 K/uL [place] RBC (Bld) [#/Vol] 4.32 10*6/uL [place] WBC (Bld) [#/Vol] 11.6 10*3/uL High 4.8 - 10.8 K/uL [place] CBC With Platelet and Differ entialon 09-10-2020 Basophils (Bld) [#/Vol] 0.1 10*3/uL Normal 0.0-0.2 [facility] Comment on above: Performed By: #### C BCWD #### [facility] [address] [address] Basophils/100 WBC (Bld) 0.7 % Normal [facility] Comment on above: Performed By: #### C BCWD #### [facility] [address] [address] Eosinophils (Bld) [#/Vol] 0.0 10*3/uL Normal 0.0-0.7 [facility] Comment on above: Performed By: #### C BCWD #### [facility] [address] [place] [address] Eosinophils/100 WBC (Bld) 0.2 % Normal [facility] Comment on above: Performed By: #### C BCWD #### [facility] [address] [place] [address] Erythrocyte distribution width (RBC) [Ratio] 13.2 % Normal 11.5-14.5 [facility] Comment on above: Performed By: #### C BCWD #### [facility] [address] [place] [address] Hematocrit (Bld) [Volume fraction] 41.0 % Normal 37.0-47.0 [facility] Comment on above: Performed By: #### C BCWD #### [facility] [address] [place] [address] Hemoglobin (Bld) [Mass/Vol] 14.2 g/dL Normal 12.0-16.0 [facility] Comment on above: Performed By: #### C BCWD #### [facility] [address] [place] [address] Lymphocytes (Bld) [#/Vol] 2.9 10*3/uL Normal 1.0-4.8 [facility] Comment on above: Performed By: #### C BCWD #### [facility] [address] [place] [address] Lymphocytes/100 WBC (Bld) 25.0 % Normal [facility] Comment on above: Performed By: #### C BCWD #### [facility] [address] [place] [address] MCH (RBC) [Entitic mass] 32.9 pg Critically high 27.0-31.3 [facility] Comment on above: Performed By: #### C BCWD #### [facility] [address] [place] [address] MCHC (RBC) [Mass/Vol] 34.6 % Normal 33.0-37.0 [facility] Comment on above: Performed By: #### C BCWD #### [facility] [address] [place] [address] MCV (RBC) [Entitic vol] 95.0 fL Normal 82.0-100.0 [facility] Comment on above: Performed By: #### C BCWD #### [facility] [address] [place] [address] Monocytes (Bld) [#/Vol] 0.4 10*3/uL Normal 0.2-0.8 [facility] Comment on above: Performed By: #### C BCWD #### [facility] [address] [place] [address] Monocytes/100 WBC (Bld) 3.8 % Normal [facility] Comment on above: Performed By: #### C BCWD #### [facility] [address] [place] [address] Neutrophils (Bld) [#/Vol] 8.2 10*3/uL Critically high 1.4-6.5 [facility] Comment on above: Performed By: #### C BCWD #### [facility] [address] [place] [address] Neutrophils/100 WBC (Bld) 70.3 % Normal [facility] Comment on above: Performed By: #### C BCWD #### [facility] [address] [place] [address] Platelets (Bld) [#/Vol] 196 10*3/uL Normal 130-400 [facility] Comment on above: Performed By: #### C BCWD #### [facility] [address] [place] [address] RBC (Bld) [#/Vol] 4.32 10*6/uL Normal 4.20-5.40 [facility] Comment on above: Performed By: #### C BCWD #### [facility] [address] [place] [address] WBC (Bld) [#/Vol] 11.6 10*3/uL Critically high 4.8-10.8 [facility] Comment on above: Performed By: #### C BCWD #### [facility] [address] [place] [address] COVID-19on 09-10-2020 COVID-19, NAAT Not Detected Normal Not Detect [facility] Comment on above: Result Comment: Rapi d [...] authorized laboratories. Fact sheet for Healthcare Providers: https://www.fda.gov/media/365892/download Fact sheet for Patients: https://www.fda.gov/media/096537/download METHODOLOGY: Isothermal Nucleic Acid Amplification Performed By: #### C OVPC #### [facility] [address] [facility] [address] SARS-CoV-2, NAAT Not Detected Not Detected [place], [place] Comment on above: Rapid NAAT: Negative [...] authorized laboratories. Fact sheet for Healthcare Providers: https://www.fda.gov/media/500580/download Fact sheet for Patients: https://www.fda.gov/media/479734/download METHODOLOGY: Isothermal Nucleic Acid Amplification Comprehensive Metabolic Pane felipa 09-10-2020 Albumin [Mass/Vol] 3.9 g/dL Normal 3.5-4.6 [facility] Comment on above: Performed By: #### C MP #### [facility] [address] [facility] [address] ALP [Catalytic activity/Vol] 76 U/L Normal 40-130 [facility] Comment on above: Performed By: #### C MP #### [facility] [address] [place] [address] ALT [Catalytic activity/Vol] 22 U/L Normal 0-33 [facility] Comment on above: Result Comment: Spec imen hemolysis has exceeded the interference as defined by Shikha. Result may be affected. Suggest recollection if clinically indicated. Performed By: #### C MP #### [facility] [address] [place] [address] Anion gap [Moles/Vol] 9 mmol/L Normal 9-15 [facility] Comment on above: Performed By: #### C MP #### [facility] [address] [place] [address] AST [Catalytic activity/Vol] 18 U/L Normal 0-35 [facility] Comment on above: Result Comment: Spec imen hemolysis has exceeded the interference as defined by Shikha. Value may be falsely increased. Suggest recollection if clinically indicated. Performed By: #### C MP #### [facility] [address] [place] [address] Bilirubin [Mass/Vol] 0.3 mg/dL Normal 0.2-0.7 [facility] Comment on above: Performed By: #### C MP #### [facility] [address] [place] [address] Calcium [Mass/Vol] 9.2 mg/dL Normal 8.5-9.9 [facility] Comment on above: Performed By: #### C MP #### [facility] [address] [place] [address] Chloride [Moles/Vol] 103 mmol/L Normal 95-107 [facility] Comment on above: Performed By: #### C MP #### [facility] [address] [place] [address] CO2 [Moles/Vol] 28 mmol/L Normal 20-31 [facility] Comment on above: Performed By: #### C MP #### [facility] [address] [place] [address] Creatinine [Mass/Vol] 0.67 mg/dL Normal 0.50-0.90 [facility] Comment on above: Performed By: #### C MP #### [facility] [address] [place] [address] GFR/1.73 sq M predicted among blacks MDRD (S/P/Bld) [Vol rate/Area] mL/min/{1.73_m2} Normal >60 [facility] Comment on above: Result Comment: >60 mL/min/1.73m2 EGFR, calc. for ages 18 and older using the MDRD formula (not corrected for weight), is valid for stable renal function. Performed By: #### C MP #### [facility] [address] [place] [address] GFR/1.73 sq M.predicted MDRD (S/P/Bld) [Vol rate/Area] mL/min/{1.73_m2} Normal >60 [facility] Comment on above: Result Comment: >60 mL/min/1.73m2 EGFR, calc. for ages 18 and older using the MDRD formula (not corrected for weight), is valid for stable renal function. Performed By: #### C MP #### [facility] [address] [place] [address] Globulin (S) [Mass/Vol] 2.4 g/dL Normal 2.3-3.5 [facility] Comment on above: Performed By: #### C MP #### [facility] [address] [place] [address] Glucose [Mass/Vol] 189 mg/dL Critically high 70-99 [facility] Comment on above: Performed By: #### C MP #### [facility] [address] [place] [address] Potassium [Moles/Vol] 4.2 mmol/L Normal 3.4-4.9 [facility] Comment on above: Result Comment: Spec imen hemolysis has exceeded the interference as defined by Shikha. Value may be falsely increased. Suggest recollection if clinically indicated. Performed By: #### C MP #### [facility] [address] [place] [address] Protein [Mass/Vol] 6.3 g/dL Normal 6.3-8.0 [facility] Comment on above: Performed By: #### C MP #### [facility] [address] [place] [address] Sodium [Moles/Vol] 140 mmol/L Normal 135-144 [facility] Comment on above: Performed By: #### C MP #### [facility] [address] [place] [address] Urea nitrogen [Mass/Vol] 17 mg/dL Normal 6-20 [facility] Comment on above: Performed By: #### C MP #### [facility] [address] [place] [address] Albumin [Mass/Vol] 3.9 g/dL 3.5 - 4.6 g/dL [place] ALP [Catalytic activity/Vol] 76 U/L 40 - 130 U/L [place] ALT [Catalytic activity/Vol] 22 U/L 0 - 33 U/L [place] Comment on above: Specimen hemolysis h as exceeded the interference as defined by Shikha. Result may be affected. Suggest recollection if clinically indicated. Anion gap [Moles/Vol] 9 mmol/L [place], [place] AST [Catalytic activity/Vol] 18 U/L 0 - 35 U/L [place] Comment on above: Specimen hemolysis h as exceeded the interference as defined by Shikha. Value may be falsely increased. Suggest recollection if clinically indicated. Bilirubin Ql (U) 0.3 mg/dL 0.2 - 0.7 mg/dL [place] Calcium [Mass/Vol] 9.2 mg/dL 8.5 - 9.9 mg/dL [place] Chloride [Moles/Vol] 103 mmol/L [place] CO2 [Moles/Vol] 28 mmol/L [place] Creatinine [Mass/Vol] 0.67 mg/dL 0.5 - 0.9 mg/dL [place] GFR >60.0 >60 [place] Comment on above: >60 mL/min/1.73m2 EG FR, calc. for ages 18 and older using the MDRD formula (not corrected for weight), is valid for stable renal function. GFR Non- >60.0 >60 [place] Comment on above: >60 mL/min/1.73m2 EG FR, calc. for ages 18 and older using the MDRD formula (not corrected for weight), is valid for stable renal function. Globulin (S) [Mass/Vol] 2.4 g/dL 2.3 - 3.5 g/dL [place] Glucose [Mass/Vol] 189 mg/dL High 70 - 99 mg/dL [place] Interpretation and review of laboratory results Abnormal [place] Potassium [Moles/Vol] 4.2 mmol/L [place] Comment on above: Specimen hemolysis h as exceeded the interference as defined by Shikha. Value may be falsely increased. Suggest recollection if clinically indicated. Protein [Mass/Vol] 6.3 g/dL 6.3 - 8 g/dL [place] Sodium [Moles/Vol] 140 mmol/L [place] Urea nitrogen [Mass/Vol] 17 mg/dL 6 - 20 mg/dL [place] MRI LUMBAR SPINE WO CONTRAST on [...] Nando Dixon MD 09/10/20 Final result Normal [facility] Rory, Chpo Incoming Radiant Results From [facility] - 09/10/2020 4:27 PM EST STUDY IS [...] superior facet joint spurring and/or ligamentous thickening. [place] STUDY IS REVIEWED WITH THE REFERRING [...] superior facet joint spurring and/or ligamentous thickening. [place] Partial Thromboplastin Timeo n 09-10-2020 aPTT Coag (Bld) [Time] 30.5 s Normal 24.4-36.8 [facility] Comment on above: Result Comment: Effe ctive 07/25/2020: Heparin Therapeutic Range: 64.0 ? 98.0 seconds. Performed By: #### P TT #### [facility] [address] [place] [address] Prothrombin Timeon 0 INR Coag (PPP) [Relative time] 1.1 {INR} Normal [facility] Comment on above: Performed By: #### P T #### [facility] [address] [place] [address] PT Coag (PPP) [Time] 13.9 s Normal 12.3-14.9 [facility] Comment on above: Performed By: #### P T #### [facility] [address] [place] [address] Protime-INRon 09-10-2020 INR Coag (PPP) [Relative time] 1.1 {INR} [place] PT Coag (PPP) [Time] 13.9 s [place] XR CHEST PORTABLEon 09-10-20 20 XR CHEST PORTABLE EXAMINATION: CHEST PORTABLE VIEW CLINICAL HISTORY: Back pain COMPARISONS: None FINDINGS: Single views of the chest is submitted. The cardiac silhouette is enlarged. Pulmonary vascular unremarkable. Right sided trachea. No focal infiltrates. No Pneumothoraces. IMPRESSION: NO ACUTE ACTIVE CARDIOPULMONARY PROCESS Interpreted by: Phillip Corral MD Signed by: Phillip Corral MD 09/11/20 Final result Normal [facility] XR LUMBAR SPINE (MIN 4 VIEWS )on [...] Phillip Corral MD 09/11/20 Final result Normal [facility] Vital Signs Date Time Vital Sign Value Performing Clinician Faci lity 09-11-2020 17:30-0500 BP Diastolic 94 mm[Hg] [facility] [place] [facility] [place] 09-11-2020 17:30-0500 BP Systolic 182 mm[Hg] [facility] [place] 09-11-2020 17:30-0500 Pulse (Heart Rate) 60 /min [facility] [place] 09-11-2020 17:30-0500 Pulse Oximetry 94 % [facility] [place] 09-11-2020 17:30-0500 Respiratory Rate 19 /min [facility] [place] 09-11-2020 16:50-0500 Body Temperature 98.01 [degF] [facility] 09-10-2020 10:41-0500 BMI (Body Mass Index) 27.46 kg/m2 [facility] [place] 09-10-2020 10:41-0500 Body weight 72.58 kg [facility] [place] , [place] 09-10-2020 10:41-0500 Height 162.6 cm [facility] , [place] Encounters Encounter Date Encounter Type Care Provider Facility Start: 10-05-2023 End: 10-05-2023 ambulatory PARESH AICHHOLZ Not Available Start: 08-25-2023 End: 08-25-2023 ambulatory PARESH AICHHOLZ Not Available Start: 09-05-2022 End: 09-06-[address] EVAN GILLESPIE Facility: Start: 05-30-2022 End: 05-31-2022 ambulatory Orlando Cole Facility:[facility] Start: 05-30-2022 End: 05-30-2022 Patient encounter procedure Orlando Cole [facility] Start: 11-12-2021 Encounter for genera l adult medical examination without abnormal findings DR EVAN GILLESPIE [facility] Start: 11-11-2021 End: 11-12-[address] EVAN GILLESPIE Facility: Start: 11-11-2021 End: 11-12-2021 Encounter for general adult medical examination without abnormal findings DR EVAN GILLESPIE Facility: Start: 09-20-2021 End: 09-21-2021 ambulatory Cameron Singleton Facility:[facility] Start: 09-10-2020 End: 09-11-2020 Evaluation and management of inpatient SR EVAN Lu [facility] Start: 09-10-2020 End: 09-11-2020 Evaluation and management [...] 09/24/2020 Office Visit Neurosurgery Magdaleno Rios MD [address], [address] [place] [address] [phone] [employer] Start: 05-22-2020 Influenza vaccination Flu vaccine (# 1) [place] Start: 2011 Screening for malign ant neoplasm of breast Breast cancer screen [place] Start: 2011 Screening for malign ant neoplasm of colon Colon cancer screen colonoscopy [place] Start: 2011 Shingles Vaccine (1 of 2) Rachel gles Vaccine (1 of 2) [place] Start: 2001 Diabetes screen Diabetes screen [place], [place] Start: 2001 Lipid panel Lipid screen [place], [place] Start: 1982 Screening for malign ant neoplasm of cervix Cervical cancer screen [place] Start: 1980 DTaP/Tdap/Td vaccine (1 - Tdap) DTaP/Tdap/Td vaccine (1 - Tdap) [place] Start: 1976 HIV screening HIV screen [place], [place] Start: 1961 Hepatitis C screening Hepatitis C sc reen [place] EKG 12 Lead - Chest Pain EKG 12 Lead - Chest Pain ECG STAT 09/10/2020 4:45 PM EST [place] Oxygen therapy [[facility] Data Set] Initiate Oxygen Therapy Protocol Respiratory Care Routine Daily until discontinued starting 09/10/2020 [place] Comment on above: Daily until disconti nued starting 09/10/2020 Surgical Pathology Surgical Path ology Lab Routine Release Upon Ordering for 1 Occurrences starting 09/11/2020 [place] Comment on above: Release Upon Orderin g for 1 Occurrences starting 09/11/2020 Payers Date Payer Category Payer Unknown [id number] 2.16.8 [id number] 1961 Unknown [id number] 2.16.8 [id number] 1961 Unknown [id number] 2.16.8 [id number] 1961 Unknown [id number] 2.16.84 [id number] 1961 Unknown [id number] 2.16.84 [id number] 1961 Unknown [id number] 2.16.84 [id number] 1961 Unknown [id number] 1959 Unknown [id number] 1.2.8 [id number] Social History Date Type Detail Facility Start: 09-11-2020 Tobacco smoking stat [facility] Former smoker [place], [place] History of tobacco use Cigarette Smoker [place] Start: 09-11-2020 Cigarettes smoked current (pack per day) - Reported [place] Start: 09-11-2020 Tobacco use and exposure Never used [place] Start: 09-11-2020 Alcohol intake Lifetime non-d shobha (finding) [place] Start: 09-10-2020 History SDOH Alcohol Frequency 1 [place] Sex Assigned At Not on file [place] Exposure to SARS-CoV -2 (event) Not sure [place] Tobacco smoking status No Smokin g Status Entered [facility] Sex Assigned At Female [facility] Evaluation + Plan note Note Date & Type Note Facility Evaluation + Plan note No data available for this section [facility] Discharge instructions Note Date & Type Note Facility Hospital Discharge instructions No data available for this section [facility] Progress note Note Date & Type Note Facility Progress note No data available for this section [facility] Discharge Instructions * Instructions* Magdaleno Rios MD [...] your physician 11) Call your doctor at [phone] for an appointment (or follow up as [...] call OFFICE. The 24- hour phone is [phone] 13) If you are unable to contact [...] Weakness of right leg Magdaleno Rios MD [address], [address] [place] [address] [facility] Ordered Prescriptions (unrec ognized section and content) [...] section and content) DATE CREATED AUTHOR 09/13/2020 [facility] DATE CREATED AUTHOR AUTHOR'S ORGANIZ ATION 10/21/2021 [facility] DATE CREATED AUTHOR AUTHOR'S ORGANIZ ATION 06/02/2022 [facility] DATE CREATED AUTHOR AUTHOR'S ORGANIZ ATION 09/12/2022 [facility] DATE CREATED AUTHOR AUTHOR'S ORGANIZ ATION 10/05/2023 [facility] dical Specialists [facility] Care Team (unrecognized sect ion and content) Personnel Name: Evan Gillespie DO Address: [address] [place] [address] FOR RECORDS PERTAINING TO PATIENTS WHO ARE [...] BE BASED ON THE PRIMARY CLINICAL RECORDS. [facility] [employer] [facility]. provides no warranty or guarantee of the accuracy or completeness of information in this document.
== END 2023-10-14 13:50 | disposition home or self-care (01) ==
LOC: MN 13:50
PROVIDERS: PCP Nurse Practitioner
DX: E11.9 Type 2 diabetes mellitus without complications (principal)
CPT/HCPCS: 97802

== ENCOUNTER 2023-11-20 08:09 | Outpatient (OUT) | payer BC, SELFPAY ==
--- OUTSIDE RECORDS SUMMARY | 2023-11-20 08:12 | XMS_ITS | CCD ---
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 Name Role Phone Jose Miguel, Sr Evan Lu Primary Care Provider JOSE MIGUEL, SR EVAN Lu Primary Care Unavailable MAGDALENO RIOS Admitting Unavailable MAGDALENO RIOS Attending Unavailable Evan Gillespie Primary Care Physician [phone] Orlando Cole Admitting Unavailable Douglas, Orlando Boothe Attending Unavailable Douglas, Orlando Botohe Referring Unavailable Areli, Cameron Azul Admitting Unavailable Areli, Cameron Azul Attending Unavailable Areli, Cameron Azul Referring Unavailable JOSE MIGUEL, DR MARADIAGA Admitting Unavailable JOSE MIGUEL, DR MARADIAGA Primary Care Unavailable JOSE MIGUEL, DR MARADIAGA Consulting Unavailable JOSE MIGUEL, DR MARADIAGA Attending Unavailable JOSE MIGUEL, DR MARADIAGA Primary Care Unavailable JOSE MIGUEL, DR MARADIAGA Consulting Unavailable JOSE MIGUEL, DR MARADIAGA Attending Unavailable JOSE MIGUEL, DR MARADIAGA Admitting Unavailable JOSELITO, DR JOSH Saenz Consulting Unavailable Priya GONZALES, Jose Primary Care Provider [phone] [place] DISPATCHER RELAY, Mela Unavailable MELA DAILY Attending Unavailable ZAIDA FLORES Attending Unavailable MELA DAILY Attending Unavailable Medications Current Medications Medication Drug [...] pain 28 tablet 0 09/11/2020 09/25/2020 Active atorvastatin 10 mg oral tablet (2 sources) HMG-CoA Reductase Inhibitor Start: 09-28-2023 End: 01-25-2024 take 1 tablet by mouth in the morning atorvastatin (Lipitor) 10 MG tablet Indications: Mixed hyperlipidemia (CMS/HCC) Take 1 tablet (10 mg) by mouth in the morning. 90 tablet 0 10/27/2023 01/25/2024 Active cephalexin 500 mg oral capsule (1 [...] 3 TIMES DAILY PRN, Muscle spasms, Starting 09/10/20 at 2044 1 ml dexamethasone phosphate 4 mg/ml injection [...] DAILY, First dose on Thu09/10/20 at 2115 lisinopril 10 mg oral tablet (1 source) Angiotensin Converting Enzyme Inhibitor Start: 10-26-2023 End: 01-24-2024 take 1 tablet by mouth in the morning lisinopril 10 MG tablet Indications: Essential hypertension (CMS/HCC) , Microalbuminuria Take 1 tablet (10 mg) by mouth in the morning. 90 tablet 1 10/26/2023 01/24/2024 Active metFORMIN hydrochloride 500 mg oral tablet (3 sources) Biguanide Start: 08-25-2023 End: 11-23-2023 take 1 tablet by mouth in the morning metFORMIN (Glucophage) 500 MG tablet Indications: Type 2 diabetes mellitus without complication, without long-term current use of insulin (CMS/HCC) Take 1 tablet (500 mg) by mouth in the morning and 1 tablet (500 mg) in the evening. Take with meals. 180 tablet 1 08/25/2023 11/23/2023 Active Start: 09-11-2020 End: 09-11-2020 take 500 mg by mouth twice daily at mealtime 500 mg, Oral, 2 TIMES DAILY WITH MEALS, First dose on Thu09/11/20 at 0800 morphine (PF) injection 2 mg (1 source) Start: 09-10-2020 morphine (PF) injection 2 mg polyethylene glycol 3350 16844 mg powder for oral solution (1 source) Osmotic Laxative Start: 09-10-2020 polyethylene glycol (GLYCOLAX) packet 17 g Promethazine (1 source) Phenothiazine Start: 09-10-2020 promethazine (PHENERGAN) tablet 12.5 mg 24 hr propranolol hydrochloride 60 mg extended release oral capsule (4 sources) beta-Adrenergic Todd Start: 08-25-2023 End: 11-23-2023 take 1 capsule by mouth every twenty-four hours in the morning propranolol LA (Inderal LA) 60 MG 24 hr capsule Indications: Essential hypertension (CMS/HCC) Take 1 capsule (60 mg) by mouth in the morning. 90 capsule 1 08/25/2023 11/23/2023 Active Start: 06-24-2020 End: 09-11-2020 take 60 mg by mouth once daily 60 mg, Oral, DAILY, Fir st dose on Thu09/11/20 at 0900 Do not crush or break. End: 09-10-2020 take 1 tablet by mouth three times daily propranolol (INDERAL) 10 MG tablet Take 10 mg by mouth 3 times daily 0 09/10/2020 Discontinued (Therapy completed) sennosides, detention 8.6 mg oral tablet (1 source) Start: [...] Problem Classification Problem Date Documented Date Episodic/Chronic Diabetes mellitus without complication (1 source) Type 2 diabetes mellitus without complication; Translations: [Type 2 diabetes mellitus without complications] Onset: 08-25-2023 08-25-2023 Chronic Disorders of lipid metabolism (2 sources) Mixed hyperlipidemia; Translations: [Mixed hyperlipidemia] Onset: 09-28-2023 10-27-2023 Chronic Essential hypertension (1 source) Essential hypertension; Translations: [Essential (primary) hypertension] Onset: 08-25-2023 08-25-2023 Chronic Genitourinary symptoms and ill-defined conditions (1 source) Microalbuminuria; Translations: [Proteinuria, unspecified] Onset: 09-28-2023 09-28-2023 Episodic Joint disorders and dislocations; trauma-related (1 source) Articular cartilage disorder of shoulder region; Translations: [Other articular cartilage disorders, left shoulder] Onset: 08-25-2023 08-25-2023 Chronic Osteoarthritis (1 source) Osteoarthritis of left acromioclavicular joint; Translations: [Primary osteoarthritis, left shoulder] Onset: 08-25-2023 08-25-2023 Chronic Other connective tissue disease (1 source) Partial thickness rotator cuff tear; Translations: [Incomplete rotator cuff tear or rupture of unspecified shoulder, not specified as traumatic] Onset: 08-25-2023 08-25-2023 Episodic Other nervous system disorders (1 source) Postoperative pain ; Translations: [Postoperative pain] Episodic Other nutritional; endocrine; and metabolic disorders (1 source) Body mass index 30+ - obesity; Translations: [Obesity, unspecified] Onset: 08-25-2023 08-25-2023 Chronic Other screening for suspected conditions (not mental disorders or infectious disease) (4 sources) Encounter for screening mammogram for malignant neoplasm of breast; Translations: [ENC SCR MAMMO MALIG NEOPLASM BREAST] Onset: 09-05-2022 Episodic Paralysis (4 sources) Weakness of right leg; Translations: [Right leg weakness] Onset: 09-10-2020 09-10-2020 Spondylosis; intervertebral disc disorders; other back problems (3 sources) Prolapsed lumbar intervertebral disc; Translations: [Other intervertebral disc displacement, lumbar region] Onset: 08-25-2023 08-25-2023 Chronic Results Test Name Value Interpretation Reference Range Facility MG MAMM SCREEN 3D ANGELICA CADon 09-05-2022 MG MAMM SCREEN 3D ANGELICA CAD Patient: OJRDY DUNNE Exam Date: 09/05/2022 : 1960 Gender:F Ordering : DR EVAN GILLESPIE DRolandaORolanda Admission #: [id number] Family : Order #: [id number] CLICK HERE TO VIEW EXAM RADIOLOGY REPORT PROCEDURE: MAMMOGRAM SCREENING 3D BILATERAL CAD COMPARISON: MAMMO ANGELICA SCREEN, 07/08/2013. MAMMO ANGELICA SCREEN, 01/08/2009. INDICATIONS: Screening mammography Calculator Name NCI Breast Cancer Risk Assessment Tool 5 Year Breast Cancer Risk Not Reported. Lifetime Breast Cancer Risk Not Reported. Personal Breast Cancer No Personal Ovarian Cancer No Treatments None Family Cancers None LOCATION: [facility] BREAST COMPOSITION: Scattered areas fibroglandular density. [...] M.D. on 09/08/2022 at 13:34 Normal [facility] Coding Summary.on 06-02-2022 Coding Summary. [id number] G h0bWw+PGhlYWQ+RQ9BMTN tI90iuRCxhM8RO2nZOF0Y CKSUKZKXWS7MDW4kdLV7D GlcF7NdzvKm UptulJSjKS87NVy2SOW4u OqdPYbzxN2lsASsW1f6Ic ReLB42uC49RVupLSCbWgW 3LjZpbjsgbWFy E6khPaTieJEaOjt+PHRhY mxlIHdpZHRoPScxMDAlJy WdzGgyMP0sNa9gGEGnGII vbGxhcHNlOiBj x4fbQMQpZHacSC9zdQtqS 0YloKP7WKMmz4y1Ke62eF I+BOSdBQR6cBltSJnib43 5ImSbq4siSON4 sSWtFKdkQXP4O57qe2F7U MHjOPIqPVD2vYZ4bB5tmS xowosnP5FrbFJhGkG7IBR 1gPLhfJ5rbRnj qwcprH9kAiz+C51XPQ2KZ KXHAX1AOva4O7TjSiksxA I+AX72ONVoLU52wEPepUR cg8afyTp6LpYa MXNnOJZ8aWhkBIfan3MpX CYkK27blVKcu5N6KWZhsD iyqLEbKdEkpFZ8vZ2wTMr notijq7ukvxrc Sqmme7kbkc75rI79Z61mV MigMPJbTHK6PNZeBFUhcO oqwo5ecV3fNk1+LJzfn1q iq2uhxNy1NpXp XTTbfeAcpCdmPDS1t4SdQ q63U9ZsaYpxi6NeHlp2pu 29tTMmm9Z1jXD1VTqwUTE ehM9tKBxuYiL8 SHPeAuDbtZ26iNDnQXgpY k7wjTphpTjvTH9oKYElyo apZARokT1nFCBruBTxxSi hMW3cNGOyxomu h192OiFpXSL4FIOmqYDxI 7VyoQ1eKuAoPFSvMGGfD1 AlnUTkLBokC035TKubThE 0XGZuaxGcO8Ux KGOtcCdvHlG4d5U7Zo2Ly 2SbvavwQAT0RAltVEN8Xd TvGvWhWwQ1R8AmKau5UWK wxPmaOG5uJ3Rg SCGmprcstwjqcVR5TXMiR IQuwF44mGQkNZjuHn8gl3 N2f484XAGhONQwdG64Rh8 udDogMTBwdCBU oK5xyxswy5jirzfqHvYeG JWfLGp9LSv8PZRwgXbxJd AyVZN5AkC1ELI8tJSvpM2 ijMtonrmjyG1m Oyc+I26dzY1zHWS4GLI6d rllXAZbhrBfWN13NQ87Q3 RyPjwvdGFibGU+PGRpdiB prFwfIR3dMcRu x5ykf7SlCTocS6DfJMIqY QxkHwm3TJOxDRW6rAZ4eH 3gCZLmUWnmn2F7xKT2L3V oujFwdy2oe5om ZTHcHNtjB00umNEhn1I1E WNnfJP3DPVvmGytLrNaeN 93Oyc+ZXHokVbdj1AdPfy rg0kpd3mpvCu1 RkUqHQLhrtGheHgfBEJ4v 5HvZe82T34oDYqrYJOjWI EoGJDrQBRdiWczuo6rsX9 wIi8+PGNvbCB3 jBQ0kO8aIHQwZdG7VQuhI 770KqJekCNbMoyhe3afh2 xuoJy9FsDaSMBuohIplCv dDKB4f4GgSo61 E53aXIdmPPDfGZKsCKUfW UCyaIslrq6viN9zOo8+PC 6ke7dumd40zC36kWS+PHR vNKC6xYnqOOmr FGZmbO0xJHejHxR8TUSrT xPtvP53eHHaCRzjCk4cgT kxaZrbNV8tRCSnrkgdw80 4TmLab6kqOQXr tTMzLNcmNCW5J89ox1O0L RBwEAMkJVM8cXD8iU7tdB lnbjogbGVmdDsgdmVydGl lKRkzPEbtK055 IHRvcDsnPlBhdGllbnQgT uBfWWf0X1GoMac5JBZepX zwSW1zwZNqAZssHn7msOj nzQyhCR4lBLNu ctyvh909BdEry2qbPBFup LVgDUggXXY9H48ew8N4AP ZbZCLmSNN1mWU0mL8rvQy nbjogbGVmdDsg sfZuiCkbDAuaGLcpI638R HRvcDsnPkJpcnRoIERhdG A7BP70NB98vCDbu0S9lWB 2T2YrCYIjsyaq cjuerFQ7RYPiZGHttV10U m5ilSsuNc5fWFReGRZ8RD PepACzO6KpeO3sSwOeGGI vLADwG4RvpOQt CNwqM993MSiuQeH6PDBbf aNkO4EnBMLssFyhRyL1y7 N2Zm5KP0C3RT37CI52xDB fk5D5wRA8F2Td DBFueoitlrusnUL3QCJsM BKhmI87Mp4xoTlbMq4fSH WjKIB5VIUsjMTvU2BbmU1 yOiAjMDAwMDAw E5UhwIEhSVmaK991WLmhE mA9NWZwgoRsE7XhXLOmsS buPdT6w5L4Xu3EOJc1QG3 5TK58dXMpq5B2 aKC6V0RjQHCmrvxcaromo XL7BSNcTKDzzL48Fs8cvR hlUn8nSJXxNKT0UZAywOF iO4GwlY9xCiVo ROBvUTYtF7DtjKHmEQcwD 823VCqrMeJ9QQHmanPfR1 ZoHKNxeKvtAlZ1i3K3Vx7 MEZMsCZ27IVG6 bHC5NM19QW26W8NrKxjqv GFibGU+PHRhYmxlIHdpZH RoPScxMDAlJyBzdHlsZT0 vKb0eNSRgJKDi nEiqoYLvFbTnu7xkWIXiN FulVJ9vgXetZ5JgeLC5QV Tuu0i3Nq60Y10iW4IedEB +QURmxIY5rWM5 wX6jDjCjJtO1ECywS375Q gTydDCmLkmzz6znp6jvkJ e4ZxM2CPIspgXflRyjERX 9f8EdJm51Q34w IHdpZHRoPSIxNSUiIHZhb Qliyq5geQ7wDq5+PGNvbC Y1xJW8yD3kBjZxGkV1YYq jK633TlGukCWd Bswlw2ikn2onhHd6VoDdO HUihjHccRasBAI6h9NhYr 66G9MfeZkdk4PaJuo1sg2 8bSUby9U0iZC5 W0MuJPAmlpjyqILldThdP U4qMAKphcjvDYHqlT8pPA ZkY2a0CuUsQaG5BYzxY2N xcuH9BUXtqXKv APetLAJ9L14ey4Q4QACoM VBlFNH9iNM4zF6qkQujno ogbGVmdDsgdmVydGljYWw yHDaaL316GMJu kTiwYZCrmQ4yAVGtnNWij UcfRK0dIHXhsryiHw1SM0 JFLCBMVUNSRVRJQSBNPC9 1AL71nCEhr8P4 kVW9G0IrJBGcspnpqgqnz WB5BNAhDRZcvZ93aUDsWR fcUi4iy8P0h658NNQlKBP ovW19Rg4xaPne LVBzjIBNpR6xijonw3ggr pvpQhGnGCJwXRz2CCw5JJ RhbIyuGnFdNIM9RlI7RMX 7nMFqnP2xpXpr elcvjX0qUgz+MDkvMTEvM Vx5AVvaaVE+VPWnWLP2sP siHScfOQVblW8xGWMwA1q 2JfMtJqR1ZNba X6FhAQIovaafZg23tZ4kM yWiPcV2ELrcP6LeufX5SA EdaAMuEFznRIF2I97fa5C 0BBWqHTWrUSJ3 mBI8bE7faSpwucslvDFtv DsgdmVydGljYWwtYWxpZ2 46IHRvcDsnPjYxIFllYXJ zQB58MZ66wFWe e8Z8mNI1E8CeBTHgeaixp cddfYS4KMStCKLpaU93eM RvSHikXd7lg8H4f592VRI yMHKdlR92Ma4g jSvfHBFkgYLFcX4seezbs 6vfinegQxHfEWZpKFg3ZO k1HPFkfRbgXwJgGKX5BtC 9CQH6jUBskF7q nNkwjbzarN9mXbi+RmVtY FvxKF19NI93aCLxn0T2oQ Z1U4MqIWBzffdxfqflrQI 8ZIOtUGWipX89 gYMoGEioFj9up2J4w657K KFxJLDrfZ65Er6iiHpeYB FtsFADnC3edfwjg4olstp gIzAwMDAwMDt0 NEk5FVEqkRfeJwYmECL6B tL4HLC0vJGpjF1szPsvqk lpaJ3fKdl+K0D0zGR1xDK udDwvdGQ+PC90 tv42H8IhLrubXsw9EIUfJ ZN2bEE5mO3oKYFoXRhgf1 F6yBC3J4BgtmGuad9rb4f tUGOfMUzxI40p lWHfy0F8NZQjlSP2AOAho HnhOuQjtC15Niv+PGNvbG bir3GhWjbnw4jrt5rokIv 9IjMwJSIgdmFs sQdxCWW7g1LeCu46P70aH HdpZHRoPSIzMCUiIHZhbG ytok1xiB4rGn5+PGNvbCB 3zZM2mR5nPoUo VrM8ISdvK588UqOckFLrD wiug0mbw7ncbWs0BpAjMP WwdrZybNzhLON2r0ZlDv4 9Y8EzcMnnl7Vr Aea4pu28qBRhd7A1qIL3J 3BhZGRpbmctbGVmdDogMC 2sGAAftjseZVMaqC6yFMJ zJ0m3McMwYsZ1 EBhwM3ZxirS1DNQreONyS EVuxZEGdL3rpdmwd9qlgi qaJwEqUJPoTXf0OGl0ZGS saWduOiBsZWZ0 WzU1IKD7xUPwkE0ocKtbz jocsR8gSlu+HPf2w4qlqL XyOG4krJR9ER58MU33rSO ue9E4hSU5L9Es MRIjcyxheqlkrLZ6SNTuW NJviZ69Us8kyLupBi9eVE EmLNF4CTVydXJvD1AytI2 yOiAjMDAwMDAw F0XqyMHfEUocD140FGgbR dW9BGLfewKeU8SzJAQviO yoDtY6r7Q5Kc4NIT44WL8 5RX46wMNua2M2 uRM0G4FmEYYflilrxoxdc YR6ISKgCOUycG67Rt5svQ itBr5oQXUtFCJ9TTThpFH xD9KxuI5sGvIp YSMiVEToP8HnxVGoAScrA 056DXyyFbZ6SAIsbpFlH7 HxVALwzJgzOhA6q9A6Jp6 AUc96WB68YQ25 nZIbb0D0dMG6U1EjTSJby zkfxuvqxNN1AYXqFZXdcL 59Cp2qeKrtYg5kNXRnCZQ 0AJElqLZkH0Jq oJ9uCfXeKWGyWHYiB3Sun HSpKIcfR086DMteIpN4SX MwlqYhB6KdNVXfuBlfBvG 6j8T5Ya7RGWdd wug9S3ViLwatwSJ+PC90Y ISnDG62oOLssCYvn2viyI r3MdNmRELtXYC3bTdnQHf so2DkCHNkE36c bGFw (more content not included)... Normal [facility] Auto Diffon 05-30-2022 Basophils/100 WBC (Bld) 0.6 % Normal 0.0-2.0 [facility] Comment on above: Order Comment: Order Added by Discern Expert. Performed By: #### 7 [id number], [id number], [id number], [id number], [id number] #### [facility] [address] [place] [address] 97387 Basophils/Leukocytes Auto (Bld) [Pure # fraction] 0.0 E9/L Normal 0.0-0.2 [facility] Comment on above: Order Comment: Order Added by Discern Expert. Performed By: #### 7 [id number], [id number], 7252391, 8781533, [id number] #### [facility] [address] [place] [address] 43264 Eosinophils/100 WBC (Bld) 1.3 % Normal 0.0-8.0 [facility] Comment on above: Order Comment: Order Added by Discern Expert. Performed By: #### 7 [id number], [id number], 9160934, 5623028, [id number] #### [facility] [address] [place] [address] 72755 Eosinophils/Leukocyte s Auto (Bld) [Pure # fraction] 0.1 E9/L Normal 0.0-0.5 [facility] Comment on above: Order Comment: Order Added by Discern Expert. Performed By: #### 7 [id number], [id number], 5246477, 9787461, [id number] #### [facility] [address] [place] [address] 58184 Lymphocytes/100 WBC (Bld) 32.4 % Normal 14.0-50.0 [facility] Comment on above: Order Comment: Order Added by Discern Expert. Performed By: #### 7 [id number], 7879968, 3886479, 5586377, [id number] #### [facility] [address] [place] [address] 99065 Lymphocytes/Leukocyte s Auto (Bld) [Pure # fraction] 2.1 E9/L Normal 1.0-4.0 [facility] Comment on above: Order Comment: Order Added by Discern Expert. Performed By: #### 7 [id number], 5453506, 4043780, 5317496, [id number] #### [facility] [address] [place] [address] Monocytes/100 WBC (Bld) 7.6 % Normal 4.0-14.0 [facility] Comment on above: Order Comment: Order Added by Discern Expert. Performed By: #### 7 [id number], 3766094, 7611546, 4799156, [id number] #### [facility] [address] [place] [address] Monocytes/Leukocytes Auto (Bld) [Pure # fraction] 0.5 E9/L Normal 0.2-1.0 [facility] Comment on above: Order Comment: Order Added by Yosvany Expert. Performed By: #### 7 [id number], 0883130, 9377416, 0064283, [id number] #### [facility] [address] [place] [address] Neutrophils/100 WBC (Bld) 58.1 % Normal 36.0-75.0 [facility] Comment on above: Order Comment: Order Added by Yosvany Expert. Performed By: #### 7 [id number], 8227958, 0467800, 7181120, [id number] #### [facility] [address] [place] [address] Neutrophils/Leukocyte s Auto (Bld) [Pure # fraction] 3.7 E9/L Normal 2.0-7.5 [facility] Comment on above: Order Comment: Order Added by Yosvany Expert. Performed By: #### 7 [id number], 0466632, 7079888, 3342528, [id number] #### [facility] [address] [place] [address] BMPon 05-30-2022 Anion gap [Moles/Vol] 11 mmol/L Normal 6-16 [facility] Comment on above: Performed By: #### 7 [id number], 2189060, 8410826, 6680656, [id number] #### [facility] [address] [place] [address] Calcium [Mass/Vol] 9.1 mg/dL Normal 8.9-11.1 [facility] Comment on above: Performed By: #### 7 [id number], 0871102, 9054001, 0026217, 78567785 #### [facility] [address] [place] [address] Chloride [Moles/Vol] 102 mmol/L Normal 101-111 [facility] Comment on above: Performed By: #### 7 [id number], 7609205, 8399186, 5894637, [id number] #### [facility] [address] [place] [address] CO2 [Moles/Vol] 28 mmol/L Normal 21-31 [facility] Comment on above: Performed By: #### 7 [id number], 1990040, 8417087, 0038428, 91370430 #### [facility] [address] [place] [address] Creatinine [Mass/Vol] 0.7 mg/dL Normal 0.5-1.3 [facility] Comment on above: Performed By: #### 7 [id number], 2584851, 5495966, 3603792, 01413830 #### [facility] [address] [place] [address] Glucose [Mass/Vol] 115 mg/dL Normal 55-199 [facility] Comment on above: Result Comment: If t his glucose result represents a fasting glucose, interpretation should refer to the following reference range: 55-99 mg/dL Performed By: #### 7 [id number], 9298796, 4041523, 3177015, [id number] #### [facility] [address] [place] [address] Potassium [Moles/Vol] 4.1 mmol/L Normal 3.5-5.3 [facility] Comment on above: Performed By: #### 7 [id number], 4035273, 8206497, 0999572, 10665880 #### [facility] [address] [place] [address] Sodium [Moles/Vol] 137 mmol/L Normal 135-145 [facility] Comment on above: Performed By: #### 7 [id number], 7297761, 1151542, 9568352, 14241875 #### [facility] [address] [place] [address] Urea nitrogen [Mass/Vol] 14 mg/dL Normal 5-21 [facility] Comment on above: Performed By: #### 7 [id number], 5626583, 0444806, 5251140, 48416495 #### [facility] [address] [place] [address] 80067 Urea nitrogen/Creatinine [Mass ratio] 20 No Units Normal 10-20 [facility] Comment on above: Performed By: #### 7 [id number], 2837028, 0387242, 7505803, 80900289 #### [facility] [address] [place] [address] 24142 CBC w/ Auto Diffon 2 Erythrocyte distribution width (RBC) [Ratio] 13.7 % Normal 10.9-14.2 [facility] Comment on above: Performed By: #### 7 [id number], 9701434, 6046738, 4876807, 94751399 #### [facility] [address] [place] [address] Hematocrit (Bld) [Volume fraction] 41.6 % Normal 34.0-46.0 [facility] Comment on above: Performed By: #### 7 [id number], 1369335, 4550702, 1519985, [id number] #### [facility] [address] [place] [address] 29116 Hemoglobin (Bld) [Mass/Vol] 14.7 g/dL Normal 12.0-16.0 [facility] Comment on above: Performed By: #### 7 [id number], 2478993, 6648067, 2302108, 55651624 #### [facility] [address] [place] [address] MCH (RBC) [Entitic mass] 32.5 pg Normal 27.0-34.0 [facility] Comment on above: Performed By: #### 7 [id number], 8023999, 8138519, 9634154, 15872680 #### [facility] [address] [id number] MCHC (RBC) [Mass/Vol] 35.4 g/dL Normal 31.4-36.0 [facility] Comment on above: Performed By: #### 7 [id number], 2685993, 7500835, 8162634, 35215239 #### [facility] [address] [place] [address] 98457 MCV (RBC) [Entitic vol] 91.8 fL Normal 80.0-100.0 [facility] Comment on above: Performed By: #### 7 [id number], 2739442, 6968047, 1983151, [id number] #### [facility] [address] [place] [address] 06603 Platelet mean volume (Bld) [Entitic vol] 9.3 fL Normal 6.4-10.8 [facility] Comment on above: Performed By: #### 7 [id number], 5781673, 9335379, 9772371, 68934780 #### [facility] [address] [place] [address] 95673 Platelets (Bld) [#/Vol] 181.0 E9/L Normal 150.0-500.0 [facility] Comment on above: Performed By: #### 7 [id number], 5851042, 6443162, 8730509, [id number] #### [facility] [address] [place] [address] 63974 RBC (Bld) [#/Vol] 4.5 E12/L Normal 4.3-5.9 [facility] Comment on above: Performed By: #### 7 [id number], 2691582, 8096579, 3487335, 16372805 #### [facility] [address] [place] [address] WBC corrected for nucl RBC Auto (Bld) [#/Vol] 6.4 E9/L Normal 4.0-11.0 [facility] Comment on above: Performed By: #### [id number] #### [facility] [address] [place] [address] CHEMISTRYOrdered By: [employer] SYSTEM on 05-30-2022 Anion gap [Moles/Vol] 11 mmol/L Normal 6 - 16 mEq/L F C Remisol Calcium [Mass/Vol] 9.1 mg/dL Normal 8.9 [...] rate/Area] mL/min/1.73 m2 Normal >=59mL/min/1. [address] [facility] Chem S Glucose [Mass/Vol] 115 mg/dL Normal 55 - 199 mg/dL [facility] Remisol Potassium [Moles/Vol] 4.1 mmol/L Normal 3.5 - 5.3 mmol/L [facility] Remisol Sodium [Moles/Vol] 137 mmol/L Normal 135 - 145 mmol/L [facility] Remisol Urea nitrogen [Mass/Vol] 14 mg/dL Normal 5 - 21 mg/dL [facility] Remisol Urea nitrogen/Creatinine [Mass ratio] 20 mg/mg Normal 10 - 20 [facility] Remisol CHEMISTRYOrdered By: Rubi jordan on 05-30-2022 HbA1c (Bld) [Mass fraction] 6.2 % High <=5.9% [facility] ChemAutoSS Consent for Treatmenton Consent for Treatment [id number]#1 .00CD:127 Normal [facility] HEMATOLOGYOrdered By: SYSTEM SYSTEM on [...] 13.7 % Normal 10.9 - 14.2 % [facility] HemeAutoSS Hematocrit (Bld) [Volume fraction] 41.6 % Normal 34.0 - 46.0 % [facility] HemeAutoSS Hemoglobin (Bld) [Mass/Vol] 14.7 g/dL Normal [...] 4.5 E12/L Normal 4.3 - 5.9 E12/L [facility] HemeAutoSS WBC corrected for nucl RBC Auto (Bld) [#/Vol] 6.4 E9/L Normal 4.0 - 11.0 E9/L [facility] HemeAutoSS [id number] 05-30-2022 HbA1c (Bld) [Mass fraction] 6.2 % High <=5.9 [facility] Comment on above: Performed By: #### [id number] #### [facility] [address] [place] [address] XR Chest 2 Viewson 2 XR Chest [...] M.D. Transcribed by: JODEE Technologist: CC Normal [facility] eGFRon 05-30-2022 GFR/1.73 sq M.predicted among blacks MDRD (S/P/Bld) [Vol rate/Area] mL/min/{1.73_m2} Normal >=59 [facility] Comment on above: Order Comment: Order added by Discern Expert. Result Comment: eGFR is race adjusted. AA=. Performed By: #### [id number], [id number] #### [facility] [address] [place] [address] GFR/1.73 sq M.predicted among non-blacks MDRD (S/P/Bld) [Vol rate/Area] mL/min/{1.73_m2} Normal >=59 [facility] Comment on above: Order Comment: Order added by Discern Expert. Result Comment: [employer] Operator arnulfo kidney disease could be indicated at eGFR's of less than 60 mL/min/1.73m2. Kidney failure is indicated at less than 15 mL/min/1.73m2. Performed By: #### 7 [id number] #### [facility] [address] [place] [address] Physician Orderon 05-08-2022 Physician Order [id number]#1 .00CD:127 Normal [facility] CBC AUTO DIFFon 11-11-2021 BASO # 0.0 103/ul Normal 0.0-0.1 [facility] Comment on above: Performed By: #### C BC #### [facility] [address] [place] [address] Dr. Farhat Mcneil Basophils/100 WBC (Bld) 0.6 % Normal 0.2-2.0 [facility] Comment on above: Performed By: #### C BC #### [facility] [address] [place] [address] Dr. Farhat Mcneil EO # 0.1 103/ul Normal 0.0-0.7 [facility] Comment on above: Performed By: #### C BC #### [facility] [address] [place] [address] Dr. Farhat Mcneil Eosinophils/100 WBC (Bld) 1.1 % Normal 0.9-7.0 [facility] Comment on above: Performed By: #### C BC #### [facility] [address] [place] [address] Dr. Farhat Mcneil Erythrocyte distribution width (RBC) [Ratio] 12.3 % Normal 11.0-15.0 [facility] Comment on above: Performed By: #### C BC #### [facility] [address] [place] [address] Dr. Farhat Mcneil Hematocrit (Bld) [Volume fraction] 43.6 % Normal 36.0-48.0 [facility] Comment on above: Performed By: #### C BC #### [facility] [address] [place] [address] Dr. Farhat Mcneil Hemoglobin (Bld) [Mass/Vol] 15.0 g/dL Normal 12.0-16.0 [facility] Comment on above: Performed By: #### C BC #### [facility] [address] [place] [address] Dr. Farhat Mcneil IG # 0.02 10e3/ul Normal 0.00-0.03 [facility] Comment on above: Performed By: #### C BC #### [facility] [address] [place] [address] Dr. Farhat Mcneil IG % 0.3 % Normal 0.0-0.5 [facility] Comment on above: Performed By: #### C BC #### [facility] [address] [place] [address] Dr. Farhat Mcneil LYMPH # 2.2 103/ul Normal 1.2-3.8 [facility] Comment on above: Performed By: #### C BC #### [facility] [address] [place] [address] Dr. Farhat Mcneil Lymphocytes/100 WBC (Bld) 31.0 % Normal 20.5-60.0 [facility] Comment on above: Performed By: #### C BC #### [facility] [address] [place] [address] Dr. Farhat Mcneil MANUAL DIFF REQ NO Normal [facility] Comment on above: Performed By: #### C BC #### [facility] [address] [place] [address] Dr. Farhat Mcneil MCH (RBC) [Entitic mass] 31.5 pg Normal 26.7-34.0 [facility] Comment on above: Performed By: #### C BC #### [facility] [address] [place] [address] Dr. Farhat Mcneil MCHC (RBC) [Mass/Vol] 34.4 g/dL Normal 29.9-35.2 [facility] Comment on above: Performed By: #### C BC #### [facility] [address] [place] [address] Dr. Farhat Mcneil MCV (RBC) [Entitic vol] 91.6 fL Normal 81.0-99.0 [facility] Comment on above: Performed By: #### C BC #### [facility] [address] [place] [address] Dr. Farhat Mcneil MONO # 0.5 103/ul Normal 0.3-0.8 [facility] Comment on above: Performed By: #### C BC #### [facility] [address] [place] [address] Dr. Farhat Mcneil Monocytes/100 WBC (Bld) 6.3 % Normal 1.7-12.0 [facility] Comment on above: Performed By: #### C BC #### [facility] [address] [place] [address] Dr. Farhat Mcneil NEUT # 4.3 103/ul Normal 1.4-6.5 [facility] Comment on above: Performed By: #### C BC #### [facility] [address] [place] [address] Dr. Farhat Mcneil Neutrophils/100 WBC (Bld) 60.7 % Normal 43.0-75.0 [facility] Comment on above: Performed By: #### C BC #### [facility] [address] [place] [address] Dr. Farhat Mcneil Platelet mean volume (Bld) [Entitic vol] 10.6 fL Normal 9.5-13.5 [facility] Comment on above: Performed By: #### C BC #### [facility] [address] [address] [address] Farhat Mcneil PLT 187 103/ul Normal 150-450 [facility] Comment on above: Performed By: #### C BC #### [facility] [address] [address] [address] Farhat Mcneil RBC 4.76 106/ul Normal 4.20-5.40 [facility] Comment on above: Performed By: #### C BC #### [facility] [address] [address] [address] Farhat Mcneil WBC 7.1 103/ul Normal 4.0-11.0 [facility] Comment on above: Performed By: #### C BC #### [facility] [address] [place] [address] Dr. Farhat Mcneil LIPID PROFILEon 11-11-2021 CHOL-HDL RATIO NORM SEE BELOW Normal [facility] Comment on above: Result Comment: 3.3 - 4.4 LOW RISK 4.4 - 7.1 AVERAGE RISK 7.1 - 11.0 MODERATE RISK >11.0 HIGH RISK Performed By: #### L IPID, T4, CMP, TSH #### [facility] [address] [place] [address] Dr. Farhat Mcneil Cholesterol [Mass/Vol] 286 mg/dL Critically high <=200 [facility] Comment on above: Performed By: #### L IPID, T4, CMP, TSH #### [facility] [address] [place] [address] Dr. Farhat Mcneil Cholesterol in HDL [Mass/Vol] 44 mg/dL Normal [facility] Comment on above: Performed By: #### L IPID, T4, CMP, TSH #### [facility] [address] [place] [address] Dr. Farhat Mcneil Cholesterol in LDL [Mass/Vol] 187.2 mg/dL Normal [facility] Comment on above: Performed By: #### L IPID, T4, CMP, TSH #### [facility] [address] [address] [address] Farhat Mcneil Cholesterol.total/Cho lesterol in HDL [Mass ratio] 6.5 {ratio} Normal [facility] Comment on above: Performed By: #### L IPID, T4, CMP, TSH #### [facility] [address] [address] [address] Farhat Mcneil HDL NORMAL > or = 60 mg/dl - LO W CARDIOVASCULAR RISK <40 mg/dl - HIGH CARDIOVASCULAR RISK Normal [facility] Comment on above: Performed By: #### L IPID, T4, CMP, TSH #### [facility] [address] [address] [address] Farhat Mcneil LDL CALC NORMAL SEE BELOW Normal [facility] Comment on above: Result Comment: <100 mg/dl OPTIMAL 100 - 129 mg/dl NEAR OR ABOVE OPTIMAL 130 - 159 mg/dl BORDERLINE HIGH 160 - 189 mg/dl HIGH >190 mg/dl VERY HIGH Performed By: #### L IPID, T4, CMP, TSH #### [facility] [address] [address] [address] Farhat Mcneil Triglyceride [Mass/Vol] 274 mg/dL Critically high <=150 [facility] Comment on above: Performed By: #### L IPID, T4, CMP, TSH #### [facility] [address] [address] [address] Farhat Mcneil VLDL CALC 54.8 mg/dL Normal [facility] Comment on above: Performed By: #### L IPID, T4, CMP, TSH #### [facility] [address] [address] [address] Farhat Mcneil PROF 14(COMP METB)on 022 Albumin [Mass/Vol] 3.8 g/dL Normal 3.5-5.0 [facility] Comment on above: Performed By: #### L IPID, T4, CMP, TSH #### [facility] [address] [address] [address] Farhat Mcneil Albumin/Globulin [Mass ratio] 1.0 {ratio} Normal [facility] Comment on above: Performed By: #### L IPID, T4, CMP, TSH #### [facility] [address] [address] [address] Farhat Mcneil ALP [Catalytic activity/Vol] 102 U/L Normal 38-126 [facility] Comment on above: Performed By: #### L IPID, T4, CMP, TSH #### [facility] [address] [place] [address] Dr. Farhat Mcneil ALT [Catalytic activity/Vol] 46 U/L Normal 9-52 [facility] Comment on above: Performed By: #### L IPID, T4, CMP, TSH #### [facility] [address] [address] [address] Farhat Mcneil Anion gap [Moles/Vol] 9.2 mmol/L Normal [facility] Comment on above: Performed By: #### L IPID, T4, CMP, TSH #### [facility] [address] [place] [address] Dr. Farhat Mcneil AST [Catalytic activity/Vol] 21 U/L Normal 14-36 [facility] Comment on above: Performed By: #### L IPID, T4, CMP, TSH #### [facility] [address] [place] [address] Dr. Farhat Mcneil Bilirubin [Mass/Vol] 0.3 mg/dL Normal 0.2-1.3 [facility] Comment on above: Performed By: #### L IPID, T4, CMP, TSH #### [facility] [address] [place] [address] Dr. Farhat Mcneil Calcium [Mass/Vol] 9.0 mg/dL Normal 8.4-10.2 [facility] Comment on above: Performed By: #### L IPID, T4, CMP, TSH #### [facility] [address] [place] [address] Dr. Farhat Mcniel Chloride [Moles/Vol] 103 mmol/L Normal 98-107 [facility] Comment on above: Performed By: #### L IPID, T4, CMP, TSH #### [facility] [address] [place] [address] Dr. Farhat Mcneil CO2 [Moles/Vol] 30.7 mmol/L Critically high 22.0-30.0 [facility] Comment on above: Performed By: #### L IPID, T4, CMP, TSH #### [facility] [address] [address] [address] Farhat Mcneil Creatinine [Mass/Vol] 0.75 mg/dL Normal 0.52-1.04 [facility] Comment on above: Performed By: #### L IPID, T4, CMP, TSH #### [facility] [address] [address] [address] Farhat Mcneil EGFR-AF BRUNEIAN >60 Normal >=60 [facility] Comment on above: Performed By: #### L IPID, T4, CMP, TSH #### [facility] [address] [place] [address] Dr. Farhat Mcneil EGFR-NON AF BRUNEIAN >60 Normal >=60 [facility] Comment on above: Performed By: #### L IPID, T4, CMP, TSH #### [facility] [address] [address] [address] Farhat Mcneil Globulin (S) [Mass/Vol] 3.7 g/dL Normal [facility] Comment on above: Performed By: #### L IPID, T4, CMP, TSH #### [facility] [address] [address] [address] Farhat Mcneil Glucose [Mass/Vol] 126 mg/dL Critically high 74-106 [facility] Comment on above: Performed By: #### L IPID, T4, CMP, TSH #### [facility] [address] [address] [address] Farhat Mcneil Potassium [Moles/Vol] 3.9 mmol/L Normal 3.4-5.0 [facility] Comment on above: Performed By: #### L IPID, T4, CMP, TSH #### [facility] [address] [address] [address] Farhat Mcneil Protein [Mass/Vol] 7.5 g/dL Normal 6.1-8.2 [facility] Comment on above: Performed By: #### L IPID, T4, CMP, TSH #### [facility] [address] [address] [address] Farhat Mcneil Sodium [Moles/Vol] 139 mmol/L Normal 137-145 [facility] Comment on above: Performed By: #### L IPID, T4, CMP, TSH #### [facility] [address] [place] [address] Dr. Farhat Mcneil Urea nitrogen [Mass/Vol] 11.0 mg/dL Normal 7.0-17.0 [facility] Comment on above: Performed By: #### L IPID, T4, CMP, TSH #### [facility] [address] [place] [address] Dr. Farhat Mcneil Urea nitrogen/Creatinine [Mass ratio] 14.7 mg/mg Normal [facility] Comment on above: Performed By: #### L IPID, T4, CMP, TSH #### [facility] [address] [place] [address] Dr. Farhat Mcneil T4on 11-11-2021 T4 [Mass/Vol] 7.60 ug/dL Normal 5.53-11.00 [facility] Comment on above: Performed By: #### L IPID, T4, CMP, TSH #### [facility] [address] [place] [address] Dr. Farhat Mcneil TSHon 11-11-2021 TSH 2.278 uIU/mL Normal 0.470-4.680 [facility] Comment on above: Performed By: #### L IPID, T4, CMP, TSH #### [facility] [address] [place] [address] Dr. Farhat Mcneil TSH RANGE SEE BELOW Normal [facility] Comment on above: Result Comment: <0.3 4 UIU/ml HYPERTHYROID 0.34-5.60 UIU/ml EUTHYROID >5.60 UIU/ml HYPOTHYROID Performed By: #### L IPID, T4, CMP, TSH #### [facility] [address] [place] [address] Dr. Farhat Mcneil MRI Shoulder w/o + [...] by Josh Salguero on 10/21/2021 0956 Normal [facility] Full Roll Inspector Coding Summary.on 10-05-2021 Coding Summary. CD:[id number] G h0bWw+PGhlYWQ+MK5GPZD pS16apTWiuK6VQ9yXEN3Z GARVKUQGCJ9GAP3afLQ9J IhmT7ObrpLk NcwqdTTnUV71BQd4UYW5o ZwpWHndhY0ipYYaO1b5Ke AhOL81aT10BLvzITXhMrW 3LjZpbjsgbWFy J0ljEdQpuYSfDgp+PHRhY mxlIHdpZHRoPScxMDAlJy BfkJwxHD0jOg4dYXNbDHR vbGxhcHNlOiBj d5uvHNXpESvwCD1ppPptL 1LuhYX6YVPsn3y7Np57fZ I+JNItSQT8dKizBAdpq66 4TrUdr2bmSRU4 aDGoSSzgJPL8X49qz6J8N DQmMZLlULW5oDN9yL2yfH ixnvggA4JtiMOlDzU9NUK 6sVZslH0eeTfc jagonX6bZge+V94OTH8YV JGFJB9PSrp8H7MyGwgpwD I+YC34SVUtZL86hYBnnFK vz4mfxCt9HvUo EMWoJXT5xDpsFIpjo3JaW AZtS35qaOZqv4E4NDHekR nxaFVmMiOeuVS8uA8zCLd hebxwu3epglnv Qljjq6zjwh09pM02R07rR YikXXJrGKD3CJQuTJSvpH urwq7kpD3jYj4+YRwck0t sl3ofpZh0JbQk OVZuqbNsmLlvMNP3f0XcV i02N3OwiZfpq4CfGnp3iw 24dPWta2I2xLY6JEmsWEW dxR8yUFofUcO8 CQSbElNhnY06eDGdDHklG x4ldSwnqCheTY9aYNQbti psZEClhS9iCKRbsPFamHh fQD3nNYWyevlb o812ZcOaHXS3BIJpaBYqU 2AyuW7aQbHjJGQgHKYeH7 MvvQXgZNghA022TXsaYqW 6LEAxywEpL1La WNBznVcyGoK0d7V6Ik5Hh 1LzkwvfNGM3ZSrdLQYsSd D2MdVcKkX9L8FdNsx6JCG hgNxhAD3gU6Jp BJQmucmtfjoirGN3UNZtQ XGoyL56cCHcYXznGw9kx9 I0z268CUNxHMQvdU48Bl1 udDogMTBwdCBU vQ2cyrsbz7yqcbymAcXqC ESdGXy0ZEy4FANvlBnjUe WfUFP3ZfU7FAZ9mEMztB3 uaLiosrvirY6l Oyc+P66fkU0zAON7KUD3c bwmQXKrjuGzZM87IW05C0 RyPjwvdGFibGU+PGRpdiB vtKooKJ1bStOj f5zfi4GkMDebX5MjTFZkH NsaAix9BCWvAMR5wKI0sZ 8mDSGfYHagr8G7iOH0L4N yzzTbbx5zk4tr EEYoTRvyN43buCZse1W7B UTyfYP8DCSuiYemMdEgeJ 93Oyc+QRYaeOeig0EbCkm uc0owb3xmdGm9 GdWmTTCdxhNmpAzsSRG8z 8PqAp76V89uEAfgQGLnEB ErMFJcXACmzKhxgf8xjK6 wIi8+PGNvbCB3 uDW0tW2sDVLvFhS5PBavW 886RwZqbVZbZgfgg6ruz0 uhwHi5HhDhIPToxfMdiMk vMAN2q3YaKu93 Y72wAJwsWALySVJbSUDhD XMmcAikjg1ymO3hEr2+PC 5bg7fhai12fK02cQB+PHR sPJE0mYgjGWhp QELnkH2jFUomPyT8AOZcM aHbiL35eLLaQHflQf9eeV bliTfxOP3yFAEulhhxs38 7MdEih7emOTNb wKHuNSmbSBP3X40sh9M6Q UWnTOVzRIY5lBG5rD3dxO lnbjogbGVmdDsgdmVydGl dYZqmXIjgG637 IHRvcDsnPlBhdGllbnQgT vGyWEq6A7PlPaa9FGOdmG fzJQ9nqZRdWBtoJx2ajUx yhKdxIU4vGPUv dwhtr786TuTmo8caBDYyz HLiHNkyVVG6W47dk6G1JB EpNFSaXAN5wTH9lI7onEf nbjogbGVmdDsg fdUdqFslFRmhCRahI074Y HRvcDsnPkJpcnRoIERhdG B1PZ43LM40tFVwy8D4wTN 8G5UgRTOewpvn qvlgaCW3KKOiCOSkmO60X p9peQcxKl8tKDVjSKY0FS GjyWCxN6OifZ4bCxPhCFB sPOFgU9ZclIGd JKbdB268XNboJlJ6CNXkv jCkZ1TrAGNqxWsfXnG8v0 S9Aa7XL9S4PC75MR04qLT mz7M6wCM6P1Vs SNCyqssyblntfIG9VSCoX FRazX27Ob9szRxxWf0zQK TrYKB9UUTsqXFqR6OpuN2 yOiAjMDAwMDAw S0BmfWWnZRrgY948QBqkL tP6ENJobqZvW9RcNMKgrY txTvF1v1D3Xb7WJOj5TN0 7EZ17qNOtq0S0 gFE6H7IzDOVzowvnfnsme HB2BSPrFADwdN53Vm6toI moRz0yZRPfCLF9PWEsjAQ gB3HijT8vEuIk MJIwUTOrL8PivMNgMUgjB 260GNplRrT8CBAfefSwQ2 DlBVZhrNaoGkK5m1K7Sb9 QANGaGH04YJJ1 zLR0FQ86II38Y9UhEnbkz GFibGU+PHRhYmxlIHdpZH RoPScxMDAlJyBzdHlsZT0 tHi4vKOFqGIMr dTkegTZuStTxy5uyEQVdU WtjFD4rrFsmB8GmmRW4AU Rzq7r7Nh73V46mC8JhdMT +SWBqmCE2xIB2 eT7pZxChCqI8JPxdF290P vYeuHGmBhybo8paj7hakA w5NnQ1QNUtrqNhcCelOOM 4g5LjCd19Z54z IHdpZHRoPSIxNSUiIHZhb Odctv6jfQ3vBf2+PGNvbC S7bLP0zN3vNnLlCqZ8WRt sU617HtPlzLVb Msdxu8pex9angGy6AuAuA XWyhpZqvDjaTNU7a9MbRp 93F5OtxWtdw9RcMek0hi6 1lIZrj1Q6xGJ7 J5WcSVCunxkstZCqnTqbL G1bURWyqmiwHEYhyD6vBJ AaF2y4PvUlBkH4XCgnX5R shvL1SJFraDIq GUsgBKM0B14lh6V3OVUoO UVyQKG9sNB7gX1pkDkudl ogbGVmdDsgdmVydGljYWw qXObkW148NPGi pIoeMPDcgD6lOWKvtSXwa XbyFU8qIIEpuggyIo1OC0 JFLCBMVUNSRVRJQSBNPC9 2IF23eCMlh4X6 kLM2Q8LlCOSylzkvjnhse QM4ARVhSGPpjD58eWCcYH fcXd8ns7I7i838MVRnVGR kjA18Vz5uhHdp BEDulCRTrN9cbjotg5dbe jnlLuZwBBDkSDx9WBw1WB DvpNpxVwDcTKZ1OzI8KGF 9fJSydV7mrDqx gxrvoJ3sTus+MDkvMTEvM Hf3NCvkeNP+YSPaSIR7rP xjSVwwDTRnwL2fSPYpQ9g 0ElVnMaN7YZok I9HwYYNpactsUl03lN4pC hAzGeK9CFhtL8MgtqU2OF MpkLKsHSjmPNF6X75mq6Z 9NHAdIAHtLOT6 jEB9tT9anTgtkctunAMrt DsgdmVydGljYWwtYWxpZ2 46IHRvcDsnPjYwIFllYXJ tMP24DZ09kBOg x4C4eGI5C9VvMNAukpckn lugdXO1GSGjLQBwfQ31uP PwRDdkIn1ke2B5a580HKO gLGMkzU91If5d wUlhYFZpaPZBcD8aacxib 9dvddflSsYsPHPrJHk3DC u7WGKipSdwXbLhHLP3WqL 3FRS3mCYprF6j rJrxbkangV5kXzb+RmVtY QerGA74UB95lYUta9E8fA B3N5CcMMFiacnpitsjaRE 4CORhOVCygZ28 yQMeXSfjSr8rk4N6l231C QCdSPJiyN38Hd6bxCfwWG ZfvBFLtN7anzihy2dkazj gIzAwMDAwMDt0 ZUc1VADouYzvXfAvFBE4B sQ5QXN3yOTtcE3tdPaqmc gbzW6jUmt+R2V4pBS7cPM udDwvdGQ+PC90 dy16W0NsFblnWbp4BVOkZ YD6wFG2aQ5hSQMhVBrvf7 D9iVN9G8HdhhAbdh2hn2o jERWdMBeqJ51u fSQnp3B5JQIluWC3HCXfw JvaKtKgwO59Rbf+PGNvbG hcm1MbAxvqk9vyp3pknXz 9IjMwJSIgdmFs yAgxVBA9f0ZvSk10K67uN HdpZHRoPSIzMCUiIHZhbG qxgr7meJ5aMg3+PGNvbCB 8hKE0sG0uSqCd SiV3VCkmP805NlQmhUQrG trww5xtg7njoBu3XgUaXQ FicePvuBhfREB5f4QePs7 0U2OjgFvny6Ke Nhl7nd71kUHay7R9qKT8F 3BhZGRpbmctbGVmdDogMC 6lRLNqzqowKHEluA6kIQW jV3s5RbEmDjT5 MFrdJ9HqtxT7OSChhWWbV LQxpRSGwN4ozrhyc2yekm lhKaYyFLTiMDt7MVd3VEJ saWduOiBsZWZ0 CeQ1KVA6pQRwrT6ryUahn jyckH5qRxe+RJk5g3cloE RoZD6mrDN9FW99JB11lDH ma1B2wWB2H5Pf TRNzkfqtdjnjuTN8YZLyG LJmdU87Wk0rmAxaNg4wGH LhFYG3WSLmqQWoC9WwxE9 yOiAjMDAwMDAw K8DalJKqASndL378NMlnE uK6LVIavaGxH9MgQDCliR tgDdD6s4H5Nw8KUE82DQ6 3MY00qFFui9I6 hTR5N6NaMEUchihzrfsnc GC9OYNvHYHchV89Si2wxP kkOk7jKQLoJOP5SVXmdOA nI9QybU8uMbVz PJTgYJXwZ5VxuOWkDGpiO 065HFrwTsQ1EBGqgxZfG5 VbXHAosRkmEsW5o1C6Li0 HTb59AN95LX97 vXYgq8Q9yJX5S3RdINDod plgwvmdyUL9IYZqESDtuX 74Ph9doKjhOj9aCKQtHZP 1FJNvtWCzL8Sz hC3sHpVmDQYrAOEeM3Bgh BJcHIbaN537RVgjMfZ0YB NikrYpN8EtEHXiyOkrEtK 0n3Q5Fy5RJAhw ulp5H7DpXmsjoMR+PC90Y SDfGU77sNJzxMGta4agbD w1DaEqBYLbCRR6mDxwQKd nt4AwPZCqY39k bGFw (more content not included)... Normal [facility] Consent for Treatmenton -3 Consent for Treatment [id number]#1 .00CD:127 Normal [facility] NM Bone Scan 3 Phaseon [...] 21.3 Imaging Post Administration (hrs): 3 Normal [facility] Physician Orderon 09-12-2021 Physician Order [id number] 1.00CD:127 Normal [facility] MRI Shoulder w/o Lefton -0 MRI Shoulder w/o Left HISTORY: Pain and [...] as seen on sagittal T1 image 14 20. No well-defined bone lesion or soft [...] by Jackson Ma on 08/28/2021 0949 Normal [facility]ist FLUORO FOR SURGICAL PROCEDUR ESon 09-11-2020 FLUORO FOR SURGICAL PROCEDURES FLUORO FOR SURGICAL PROCEDURES : 09/11/2020 3:53 PM CLINICAL HISTORY: Lumbar Diskectomy . COMPARISON: None available. Intraoperative fluoroscopy was provided for Dr. Santosh gonzalez. A total of 1 seconds of fluoroscopy was used, with 4 fluoroscopic stills saved. No diagnostic images were obtained. Please see Dr. Rios surgical notes for completeness. Interpreted by: Phillip Corral MD Signed by: Phillip Corral MD 09/11/20 Final result Normal [facility] [place], [facility] Incoming Radiant Results From [facility] - 09/11/2020 5:09 PM EST FLUORO FOR SURGICAL PROCEDURES : 09/11/2020 3:53 PM CLINICAL HISTORY: Lumbar Diskectomy . COMPARISON: None available. Intraoperative fluoroscopy was provided for Dr. Santosh gonzalez. A total of 1 seconds of fluoroscopy was used, with 4 fluoroscopic stills saved. No diagnostic images were obtained. Please see Dr. Rios surgical notes for completeness. [place], [place] FLUORO FOR SURGICAL PROCEDURES : 09/11/2020 3:53 PM CLINICAL HISTORY: Lumbar Diskectomy . COMPARISON: None available. Intraoperative fluoroscopy was provided for Dr. Santosh gonzalez. A total of 1 seconds of fluoroscopy was used, with 4 fluoroscopic stills saved. No diagnostic images were obtained. Please see Dr. Rios surgical notes for completeness. [place], [place] POCT Glucoseon 09-11-2020 Glucose [Mass/Vol] 145 mg/dL Critically high 60-115 [facility] Comment on above: Performed By: #### P GLU #### [facility] [address] [place] [address] POC Performed on ACCU-CHEK Normal [facility] Comment on above: Performed By: #### P GLU #### [facility] [address] [place] [address] Glucose [Mass/Vol] 145 mg/dL High 60 - 115 mg/dl [place], [place] Interpretation and review of laboratory results Abnormal [facility], [place] Performed on ACCU-CHEK [facility], [place] Glucose [Mass/Vol] 131 mg/dL Critically high 60-115 M [facility] Comment on above: Performed By: #### P GLU #### [facility] [address] [facility] [place] [address] POC Performed on ACCU-CHEK Normal [facility] Comment on above: Performed By: #### P GLU #### [facility] [address] [facility] [place] [address] Glucose [Mass/Vol] 131 mg/dL High 60 - 115 mg/dl [place], [place] Interpretation and review of laboratory results Abnormal [facility], [place] Performed on ACCU-CHEK [place], [place] Surgical Specimen 09-11-20 Surgical Specimen [facility] [address] [place] [address] FINAL SURGICAL PATHOLOGY REPORT Patient Name: JORDY DUNNE Accession No: [id number] Age Sex: 1960 Location: [id number] Account No: [id number] Collected: 09/11/2020 Med Rec No: [id number] Received: 09/12/2020 Attend Phys: MAGDALENO RIOS Completed: 09/13/2020 Perform Phys: MAGDALENO RIOS FINAL DIAGNOSIS: DISC- INTERVERTEBRAL DISC MATERIAL WITH DEGENERATIVE CHANGES. ALIFA/PATRICIA CLINICAL INFORMATION: Right discectomy. SPECIMEN: Disc GROSS DESCRIPTION: Specimen received in formalin in a container labeled with patient's name and designated as spine . Specimen consists of pinkish-everett soft to firm tissue fragments measuring 2.2 x 1.0 x 0.2 cm. Specimen is submitted in toto in one cassette after brief decalcification. PATRICIA/PATRICIA CPT: 99101 X1 [id number] X1 VENKATESH COTTON M.D. 09/13/2020 Electronically signed out by Page 1 of 1 [facility] Comment on above: Performed By: #### S UR #### [facility] [address] [place] [address] XR CHEST PORTABLEon 09-11-20 20 INR Coag (Bld) [Relative time] NO ACUTE ACTIVE CARDIOPULMONARY PROCESS [place], [place] EXAMINATION: CHEST PORTABLE VIEW CLINICAL HISTORY: Back pain COMPARISONS: None FINDINGS: Single views of the chest is submitted. The cardiac silhouette is enlarged. Pulmonary vascular unremarkable. Right sided trachea. No focal infiltrates. No Pneumothoraces. [place], [place] Rory, Chpo Incoming Radiant Results From [facility] - 09/11/2020 7:58 AM EST EXAMINATION: CHEST PORTABLE VIEW CLINICAL HISTORY: Back pain COMPARISONS: None FINDINGS: Single views of the chest is submitted. The cardiac silhouette is enlarged. Pulmonary vascular unremarkable. Right sided trachea. No focal infiltrates. No Pneumothoraces. IMPRESSION: NO ACUTE ACTIVE CARDIOPULMONARY PROCESS [place], [place] XR LUMBAR SPINE (MIN 4 VIEWS )on 09-11-2020 Rory, Chpo Incoming Radiant Results From [facility] - 09/11/2020 10:22 AM EST EXAMINATION: XR [...] show degenerative changes.. IMPRESSION NO ACUTE FRACTURE. [place] EXAMINATION: XR LUMBAR SPINE (MIN 4 [...] show degenerative changes.. IMPRESSION NO ACUTE FRACTURE. [place] APTTon 09-10-2020 aPTT Coag (Bld) [Time] 30.5 s [place], [place] Comment on above: Effective 07/25/2020: Heparin Therapeutic Range: 64.0 98.0 seconds. CBC Auto Differentialon - Basophils (Bld) [#/Vol] 0.1 10*3/uL 0 - 0.2 K/uL [place], [place] Basophils/100 WBC (Bld) 0.7 % [place] Eosinophils (Bld) [#/Vol] 0.0 10*3/uL 0 - 0.7 K/uL [place] Eosinophils/100 WBC (Bld) 0.2 % [place] Erythrocyte distribution width (RBC) [Ratio] 13.2 % 11.5 - 14.5 % [place] Hematocrit (Bld) [Volume fraction] 41.0 % 37 - 47 % [place] Hemoglobin (Bld) [Mass/Vol] 14.2 g/dL 12 - 16 g/dL [place] Interpretation and review of laboratory results Abnormal [place] Lymphocytes (Bld) [#/Vol] 2.9 10*3/uL 1 - 4.8 K/uL [place] Lymphocytes/100 WBC (Bld) 25.0 % [place] MCH (RBC) [Entitic mass] 32.9 pg High 27 - 31.3 pg [place] MCHC (RBC) [Mass/Vol] 34.6 % 33 - 37 % [place] MCV (RBC) [Entitic vol] 95.0 fL 82 - 100 fL [place] Monocytes (Bld) [#/Vol] 0.4 10*3/uL 0.2 - 0.8 K/uL [place] Monocytes/100 WBC (Bld) 3.8 % [place] Neutrophils Absolute 8.2 K/uL High 1.4 - 6 .5 K/uL [place] Neutrophils/100 WBC (Bld) 70.3 % [place] Platelets (Bld) [#/Vol] 196 10*3/uL 130 - 400 K/uL [facility] [place], [place] RBC (Bld) [#/Vol] 4.32 10*6/uL [place] WBC (Bld) [#/Vol] 11.6 10*3/uL High 4.8 - 10.8 K/uL [place], [place] CBC With Platelet and Differ entialon 09-10-2020 Basophils (Bld) [#/Vol] 0.1 10*3/uL Normal 0.0-0.2 [facility] Comment on above: Performed By: #### C BCWD #### [facility] [address] [place] [address] Basophils/100 WBC (Bld) 0.7 % Normal [facility] Comment on above: Performed By: #### C BCWD #### [facility] [address] [place] [address] Eosinophils (Bld) [#/Vol] 0.0 10*3/uL Normal 0.0-0.7 [facility] Comment on above: Performed By: #### C BCWD #### [facility] [address] [place] [address] Eosinophils/100 WBC (Bld) 0.2 % Normal [facility] Comment on above: Performed By: #### C BCWD #### [facility] [address] [place] [address] Erythrocyte distribution width (RBC) [Ratio] 13.2 % Normal 11.5-14.5 [facility] Comment on above: Performed By: #### C BCWD #### [facility] [address] [place] [address] Hematocrit (Bld) [Volume fraction] 41.0 % Normal 37.0-47.0 [facility] Comment on above: Performed By: #### C BCWD #### [facility] [address] [place] [address] Hemoglobin (Bld) [Mass/Vol] 14.2 g/dL Normal 12.0-16.0 [facility] Comment on above: Performed By: #### C BCWD #### [facility] [address] [place] [address] Lymphocytes (Bld) [#/Vol] 2.9 10*3/uL Normal 1.0-4.8 [facility] Comment on above: Performed By: #### C BCWD #### [facility] [address] [place] [address] Lymphocytes/100 WBC (Bld) 25.0 % Normal [facility] Comment on above: Performed By: #### C BCWD #### [facility] [address] [place] [address] MCH (RBC) [Entitic mass] 32.9 pg Critically high 27.0-31.3 [facility] Comment on above: Performed By: #### C BCWD #### [facility] [address] [place] [address] MCHC (RBC) [Mass/Vol] 34.6 % Normal 33.0-37.0 [facility] Comment on above: Performed By: #### C BCWD #### [facility] [address] [place] [address] MCV (RBC) [Entitic vol] 95.0 fL Normal 82.0-100.0 [facility] Comment on above: Performed By: #### C BCWD #### [facility] [address] [place] [address] Monocytes (Bld) [#/Vol] 0.4 10*3/uL Normal 0.2-0.8 [facility] Comment on above: Performed By: #### C BCWD #### [facility] [address] [place] [address] Monocytes/100 WBC (Bld) 3.8 % Normal [facility] Comment on above: Performed By: #### C BCWD #### [facility] [address] [place] [address] Neutrophils (Bld) [#/Vol] 8.2 10*3/uL Critically high 1.4-6.5 [facility] Comment on above: Performed By: #### C BCWD #### [facility] [address] [place] [address] Neutrophils/100 WBC (Bld) 70.3 % Normal [facility] Comment on above: Performed By: #### C BCWD #### [facility] [address] [place] [address] Platelets (Bld) [#/Vol] 196 10*3/uL Normal 130-400 [facility] Comment on above: Performed By: #### C BCWD #### [facility] [address] [place] [address] RBC (Bld) [#/Vol] 4.32 10*6/uL Normal 4.20-5.40 [facility] Comment on above: Performed By: #### C BCWD #### [facility] [address] [place] [address] WBC (Bld) [#/Vol] 11.6 10*3/uL Critically high 4.8-10.8 [facility] Comment on above: Performed By: #### C BCWD #### [facility] [address] [place] [address] COVID-19on 09-10-2020 COVID-19, NAAT Not Detected Normal Not Detect [facility] Comment on above: Result Comment: Kareni jeny NAAT: Negative results should be treated as [...] authorized laboratories. Fact sheet for Healthcare Providers: https://www.fda.gov/media/364472/download Fact sheet for Patients: https://www.fda.gov/media/351322/download METHODOLOGY: Isothermal Nucleic Acid Amplification Performed By: #### C OVPC #### [facility] [address] [place] [address] SARS-CoV-2, NAAT Not Detected Not Detected [place], [place] Comment on above: Rapid NAAT: Negative [...] authorized laboratories. Fact sheet for Healthcare Providers: https://www.fda.gov/media/966195/download Fact sheet for Patients: https://www.fda.gov/media/502149/download METHODOLOGY: Isothermal Nucleic Acid Amplification Comprehensive Metabolic Pane felipa 09-10-2020 Albumin [Mass/Vol] 3.9 g/dL Normal 3.5-4.6 [facility] Comment on above: Performed By: #### C MP #### [facility] [address] [facility] [address] ALP [Catalytic activity/Vol] 76 U/L Normal 40-130 [facility] Comment on above: Performed By: #### C MP #### [facility] [address] [facility] [address] ALT [Catalytic activity/Vol] 22 U/L Normal 0-33 [facility] Comment on above: Result Comment: Spec imen hemolysis has exceeded the interference as defined by Shikha. Result may be affected. Suggest recollection if clinically indicated. Performed By: #### C MP #### [facility] [address] [facility] [address] Anion gap [Moles/Vol] 9 mmol/L Normal 9-15 [facility] Comment on above: Performed By: #### C MP #### [facility] [address] [facility] [address] AST [Catalytic activity/Vol] 18 U/L Normal 0-35 [facility] Comment on above: Result Comment: Spec imen hemolysis has exceeded the interference as defined by Shikha. Value may be falsely increased. Suggest recollection if clinically indicated. Performed By: #### C MP #### [facility] [address] [place] [address] Bilirubin [Mass/Vol] 0.3 mg/dL Normal 0.2-0.7 [facility] Comment on above: Performed By: #### C MP #### [facility] [address] [place] [address] Calcium [Mass/Vol] 9.2 mg/dL Normal 8.5-9.9 [facility] Comment on above: Performed By: #### C MP #### [facility] [address] [place] [address] Chloride [Moles/Vol] 103 mmol/L Normal 95-107 [facility] Comment on above: Performed By: #### C MP #### [facility] [address] [place] [address] CO2 [Moles/Vol] 28 mmol/L Normal 20-31 [facility] Comment on above: Performed By: #### C MP #### [facility] [address] [place] [address] Creatinine [Mass/Vol] 0.67 mg/dL Normal 0.50-0.90 [facility] Comment on above: Performed By: #### C MP #### [facility] [address] [place] [address] GFR/1.73 sq M predicted among blacks MDRD (S/P/Bld) [Vol rate/Area] mL/min/{1.73_m2} Normal >60 [facility] Comment on above: Result Comment: >60 mL/min/1.73m2 EGFR, calc. for ages 18 and older using the MDRD formula (not corrected for weight), is valid for stable renal function. Performed By: #### C MP #### [facility] [address] [place] [address] GFR/1.73 sq M.predicted MDRD (S/P/Bld) [Vol rate/Area] mL/min/{1.73_m2} Normal >60 [facility] Comment on above: Result Comment: >60 mL/min/1.73m2 EGFR, calc. for ages 18 and older using the MDRD formula (not corrected for weight), is valid for stable renal function. Performed By: #### C MP #### [facility] [address] [place] [address] Globulin (S) [Mass/Vol] 2.4 g/dL Normal 2.3-3.5 [facility] Comment on above: Performed By: #### C MP #### [facility] [address] [place] [address] Glucose [Mass/Vol] 189 mg/dL Critically high 70-99 [facility] Comment on above: Performed By: #### C MP #### [facility] [address] [place] [address] Potassium [Moles/Vol] 4.2 mmol/L Normal 3.4-4.9 [facility] Comment on above: Result Comment: Spec imen hemolysis has exceeded the interference as defined by Shikha. Value may be falsely increased. Suggest recollection if clinically indicated. Performed By: #### C MP #### [facility] [address] [place] [address] Protein [Mass/Vol] 6.3 g/dL Normal 6.3-8.0 [facility] Comment on above: Performed By: #### C MP #### [facility] [address] [place] [address] Sodium [Moles/Vol] 140 mmol/L Normal 135-144 [facility] Comment on above: Performed By: #### C MP #### [facility] [address] [place] [address] Urea nitrogen [Mass/Vol] 17 mg/dL Normal 6-20 [facility] Comment on above: Performed By: #### C MP #### [facility] [address] [place] [address] Albumin [Mass/Vol] 3.9 g/dL 3.5 - 4.6 g/dL [place] ALP [Catalytic activity/Vol] 76 U/L 40 - 130 U/L [place] ALT [Catalytic activity/Vol] 22 U/L 0 - 33 U/L [place] Comment on above: Specimen hemolysis h as exceeded the interference as defined by Shikha. Result may be affected. Suggest recollection if clinically indicated. Anion gap [Moles/Vol] 9 mmol/L [place] AST [Catalytic activity/Vol] 18 U/L 0 - 35 U/L [place] Comment on above: Specimen hemolysis h as exceeded the interference as defined by Shikha. Value may be falsely increased. Suggest recollection if clinically indicated. Bilirubin Ql (U) 0.3 mg/dL 0.2 - 0.7 mg/dL [place] Calcium [Mass/Vol] 9.2 mg/dL 8.5 - 9.9 mg/dL [place] Chloride [Moles/Vol] 103 mmol/L [place] CO2 [Moles/Vol] 28 mmol/L [place] Creatinine [Mass/Vol] 0.67 mg/dL 0.5 - 0.9 mg/dL [place] GFR >60.0 >60 [place] Comment on above: >60 mL/min/1.73m2 EG FR, calc. for ages 18 and older using the MDRD formula (not corrected for weight), is valid for stable renal function. GFR Non- >60.0 >60 [place] Comment on above: >60 mL/min/1.73m2 EG FR, calc. for ages 18 and older using the MDRD formula (not corrected for weight), is valid for stable renal function. Globulin (S) [Mass/Vol] 2.4 g/dL 2.3 - 3.5 g/dL [place] Glucose [Mass/Vol] 189 mg/dL High 70 - 99 mg/dL [place] Interpretation and review of laboratory results Abnormal [place] Potassium [Moles/Vol] 4.2 mmol/L [place] Comment on above: Specimen hemolysis h as exceeded the interference as defined by Shikha. Value may be falsely increased. Suggest recollection if clinically indicated. Protein [Mass/Vol] 6.3 g/dL 6.3 - 8 g/dL [place] Sodium [Moles/Vol] 140 mmol/L [place] Urea nitrogen [Mass/Vol] 17 mg/dL 6 - 20 mg/dL [place] MRI LUMBAR SPINE WO CONTRAST on [...] Nando Dixon MD 09/10/20 Final result Normal [facility] Rory, Chpo Incoming Radiant Results From [employer] - 09/10/2020 4:27 PM EST STUDY IS [...] superior facet joint spurring and/or ligamentous thickening. [place] STUDY IS REVIEWED WITH THE REFERRING [...] superior facet joint spurring and/or ligamentous thickening. [place] Partial Thromboplastin Timeo n 09-10-2020 aPTT Coag (Bld) [Time] 30.5 s Normal 24.4-36.8 [facility] Comment on above: Result Comment: Effe ctive 07/25/2020: Heparin Therapeutic Range: 64.0 ? 98.0 seconds. Performed By: #### P TT #### [facility] [address] [facility] [address] Prothrombin Timeon 0 INR Coag (PPP) [Relative time] 1.1 {INR} Normal [facility] Comment on above: Performed By: #### P T #### [facility] [address] [facility] [address] PT Coag (PPP) [Time] 13.9 s Normal 12.3-14.9 [facility] Comment on above: Performed By: #### P T #### [facility] [address] [facility] [address] Protime-INRon 09-10-2020 INR Coag (PPP) [Relative time] 1.1 {INR} [place] PT Coag (PPP) [Time] 13.9 s [place] XR CHEST PORTABLEon 09-10-20 XR CHEST PORTABLE EXAMINATION: CHEST PORTABLE VIEW CLINICAL HISTORY: Back pain COMPARISONS: None FINDINGS: Single views of the chest is submitted. The cardiac silhouette is enlarged. Pulmonary vascular unremarkable. Right sided trachea. No focal infiltrates. No Pneumothoraces. IMPRESSION: NO ACUTE ACTIVE CARDIOPULMONARY PROCESS Interpreted by: Phillip Corral MD Signed by: Phillip Corral MD 09/11/20 Final result Normal [facility] XR LUMBAR SPINE (MIN 4 VIEWS )on [...] Phillip Corral MD 09/11/20 Final result Normal [facility] Vital Signs Date Time Vital Sign Value Performing Clinician Faci lity 09-11-2020 17:30-0500 BP Diastolic 94 mm[Hg] [place], [place] 09-11-2020 17:30-0500 BP Systolic 182 mm[Hg] [place] 09-11-2020 17:30-0500 Pulse (Heart Rate) 60 /min [place], [place] 09-11-2020 17:30-0500 Pulse Oximetry 94 % [place] 09-11-2020 17:30-0500 Respiratory Rate 19 /min [place] 09-11-2020 16:50-0500 Body Temperature 98.01 [degF] [place] 09-10-2020 10:41-0500 BMI (Body Mass Index) 27.46 kg/m2 [place] 09-10-2020 10:41-0500 Body weight 72.58 kg [place] 09-10-2020 10:41-0500 Height 162.6 cm Magdaleno [employer] [facility] [place] , [place] Encounters Encounter Date Encounter Type Care Provider Facility Start: 11-10-2023 End: 11-10-2023 ambulatory ZAIDA FLORES Not Available Start: 10-27-2023 Refill Mela Daily [employer]PATCH[employer] Work Phone: [facility] Comment on above: Mixed hyperlipidemia (CMS/HCC) (Primary Dx) Start: 10-05-2023 End: 10-05-2023 ambulatory MELA ABIMBOLA Not Available Start: 08-25-2023 End: 08-25-2023 ambulatory MEAL ABIMBOLA Not Available Start: 09-05-2022 End: 09-06-[address] EVAN GILLESPIE Facility: Start: 05-30-2022 End: 05-31-2022 ambulatory Orlando Cole Facility:[facility] Start: 05-30-2022 End: 05-30-2022 Patient encounter procedure Orlando Cole [facility] Start: 11-12-2021 Encounter for genera l adult medical examination without abnormal findings DR EVAN GILLESPIE [facility] Start: 11-11-2021 End: 11-12-[address] EVAN GILLESPIE Facility: Start: 11-11-2021 End: 11-12-2021 Encounter for general adult medical examination without abnormal findings DR EVAN GILLESPIE Facility:[facility] Start: 09-20-2021 End: 09-21-2021 ambulatory Cameron Singleton Facility:[facility] Start: 09-10-2020 End: 09-11-2020 Evaluation and management of inpatient SR EVAN GILLESPIE [facility] Start: 09-10-2020 End: 09-11-2020 Evaluation and management of inpatient Magdaleno H. Santosh Work Phone: [facility] Comment on above: Right leg weakness ( Primary Dx); Protruded lumbar disc; Postoperative pain Procedures Date Procedure Procedure Detail Performing Clinician Start: 09-30-2023 Mammography Mela veloz [employer] Work Phone: Start: 09-11-2020 Fluoroscopy during operation Magdaleno H. Santosh Work Phone: Start: 09-11-2020 Gluc bld gluc [...] Phone: Start: 09-10-2020 COVID-19 Celsa Hardy Mur pharina Work Phone: Start: 09-10-2020 Ecg routine ecg [...] Treatment Date Care Activity Detail Author Start: 09-30-2024 Screening for malign ant neoplasm of breast Mammogram [facility] Start: 01-07-2024 End: 01-07-2024 Patient encounter procedure 01/07/2024 9:40 AM EDT Office Visit [facility] [address] [place] [phone] Mela Daily NP [address] [place] [phone] [facility] Start: 11-20-2023 Screening for malign ant neoplasm of cervix Cervical Cancer Screening [facility] Comment on above: Postponed from 06/01 (Other Medical Reasons) Start: 11-20-2023 Screening for malign ant neoplasm of colon Colorectal Cancer Screening [facility] Comment on above: Postponed from 06/01 (Other Medical Reasons) Start: 11-10-2023 End: 11-10-2023 Patient encounter procedure 11/10/2023 8:30 AM EST Office Visit [facility] [address] [place] [phone] Zaida Flores MD [address] [place] [address] [facility] Start: 08-29-2022 Hemoglobin A1c measurement Diabetes: Hemoglobin A1C [facility] Start: 09-24-2020 End: 09-24-2020 Office Visit 09/24/2020 Office Visit Neurosurgery Magdaleno Rios MD [address], [address] [place] [id number] [employer] Start: 05-22-2020 Influenza vaccination Flu vaccine (# 1) [place], [place] Start: 2011 Screening for malign ant neoplasm of breast Breast cancer screen [place] Start: 2011 Screening for malign ant neoplasm of colon Colon cancer screen colonoscopy [place] Start: 2011 Shingles Vaccine (1 of 2) Shingles Vaccine (1 of 2) [place] Start: 2001 Diabetes screen Diabetes screen [place], [place] Start: 2001 Lipid panel Lipid screen [place], [place] Start: 1991 Screening for malign ant neoplasm of cervix HPV/Cotest [facility] Start: 1982 Screening for malign ant neoplasm of cervix [facility] Start: 1980 DTaP/Tdap/Td vaccine (1 - Tdap) DTaP/Tdap/Td vaccine (1 - Tdap) [place], [place] Start: 1980 Urine screening for protein Diabetes: Urine Protein Screening [facility] Start: 1976 HIV screening HIV screen [place], [place] Start: 1971 Glaucoma screening Diabetes: R etinopathy Screening [facility] Start: 1961 Hepatitis C screening Hepatitis C sc reen [place], [place] Start: 1961 Screening for malign ant neoplasm of colon [facility] EKG 12 Lead - Chest Pain EKG 12 Lead - Chest Pain ECG STAT 09/10/2020 4:45 PM EST [place] Oxygen therapy [[facility] [facility] [employer] Data Set] Initiate Oxygen Therapy Protocol Respiratory Care Routine Daily until discontinued starting 09/10/2020 [place] Comment on above: Daily until disconti nued starting 09/10/2020 Surgical Pathology Surgical Path ology Lab Routine Release Upon Ordering for 1 Occurrences starting 09/11/2020 [place] Comment on above: Release Upon Orderin g for 1 Occurrences starting 09/11/2020 Payers Date Payer Category Payer Unknown BCBS BCBS [id number] 2015-Present [phone] [address] [place] [address] [id number] 1961 Unknown [id number] 1961 Unknown [id number] 1961 Unknown [id number] 1961 Unknown [id number] 1961 Unknown [id number] 1961 Unknown [id number] 1961 Unknown [id number] 1961 Unknown [id number] 1959 Unknown [id number] Social History Date Type Detail Facility Start: 09-11-2020 Tobacco smoking stat [facility] Former smoker [place], [place] History of tobacco use Cigarette Smoker [place] Start: 09-11-2020 End: 08-25-2023 Cigarettes smoked current (pack per day) - Reported [facility] Start: 09-11-2020 Tobacco use and exposure Never used [place] Start: 09-11-2020 Alcohol intake Lifetime non-d shobha (finding) [place] Start: 09-10-2020 History SDOH Alcohol Frequency 1 [place] Start: 1960 Sex Assigned At Not on file [place] Exposure to SARS-CoV -2 (event) Not sure [place] Tobacco smoking status No Smokin g Status Entered [facility] Start: 08-25-2023 End: 10-05-2023 Sex Assigned At Female [facility] Start: 08-25-2023 Tobacco smoking stat [facility] Smokes tobacco daily [facility] Start: 10-05-2023 Alcohol intake Current drinke r of alcohol (finding) [facility] Within the last year , have you been afraid of your partner or ex-partner? No [facility] Do you belong to any clubs or organizations such as jain groups, unions, fraternal or athletic groups, or school groups? Yes [facility] Are you now , , , , never or living with a partner? [facility] How often to you hav e a drink containing alcohol? Monthly or less [facility] How many standard dr inks containing alcohol do you have on a typical day? 1 or 2 [facility] How often do you hav e 6 or more drinks on 1 occasion? Less than monthly [facility] How hard is it for y ou to pay for the very basics like food, housing, medical care, and heating Not hard at all [facility] Do you feel stress - tense, restless, nervous, or anxious, or unable to sleep at night because your mind is troubled all the time - these days [OSQ] Not at all [facility] (I/We) worried wheth er (my/our) food would run out before (I/we) got money to buy more. Never true [facility] Start: 08-25-2023 Tobacco Comment 10-19 cigarettes/day [facility] Start: 08-25-2023 Alcohol Comment 1-2 drinks mon thly or less, caffeine 1-2 cups per day [facility] Evaluation + Plan note Note Date & Type Note Facility Evaluation + Plan note No data available for this section [facility] Evaluation note Note Date & Type Note Facility Evaluation note Diagnosis Mixed hyperlipidemia (CMS/HCC)- Primary Mixed hyperlipidemia documented in this encounter [facility] Hospital Discharge instructions Note Date & Type Note Facility Hospital Discharge instructions No data available for this section [facility] Progress note Note Date & Type Note Facility Progress note No data available for this section [facility] Discharge Instructions * Instructions* Magdaleno Rios MD [...] your physician 11) Call your doctor at [phone] for an appointment (or follow up as [...] call OFFICE. The 24- hour phone is [phone] 13) If you are unable to contact [...] Weakness of right leg Magdaleno Rios MD [address], [address] [place] [address] [facility] Ordered Prescriptions (unrec ognized section and content) [...] section and content) DATE CREATED AUTHOR [facility] DATE CREATED AUTHOR AUTHOR'S ORGANIZ ATION 10/21/2021 [facility] dical Specialist DATE CREATED AUTHOR AUTHOR'S ORGANIZ ATION 06/02/[address] [facility] DATE CREATED AUTHOR AUTHOR'S ORGANIZ ATION 09/12/2022 [facility] DATE CREATED AUTHOR AUTHOR'S ORGANIZ ATION 11/11/2023 [facility] dical Specialists EPIC Care Team (unrecognized sect ion and content) [employer] Relationship Specialty Start Date End Date Jose Powers MD PCP - General Family Medicine 08/18/23 Mela Daily NP [address] [place] [phone] Nurse Practitioner Family Medicine 08/18/23 FOR RECORDS PERTAINING TO PATIENTS WHO ARE [...] BE BASED ON THE PRIMARY CLINICAL RECORDS. [facility] [employer] [facility]. provides no warranty or guarantee of the accuracy or completeness of information in this document.
[2023-11-20 09:44] LABS: Alanine Aminotransferase 68 U/L (14-59); Aspartate Amino Transferase 28 U/L (15-37); Chol HDL Ratio 4.6; Cholesterol 180 mg/dL (<=200); HDL Cholesterol 39 mg/dL (40-60); Triglycerides 220 mg/dL (<=150)
== END 2023-11-20 08:10 | disposition home or self-care (01) ==
LOC: LAB 08:10
PROVIDERS: PCP Nurse Practitioner; Visit Provider Nurse Practitioner
DX: E78.2 Mixed hyperlipidemia (principal)
CPT/HCPCS: 36415; 80061; 84450; 84460

== ENCOUNTER 2023-12-31 10:52 | Outpatient (OUT) | payer BC, SELFPAY ==
--- OUTSIDE RECORDS SUMMARY | 2023-12-31 11:12 | XMS_ITS | CCD ---
Author Organization [facility] Care Team Providers Care Property [employer] Casualty Insurance Agent Name Role Phone House, Sr Evan Lu Primary Care Provider JOSE MIGUEL, SR EVAN Lu Primary Care Unavailable GABRIELMAGDALENO Talley HRolanda Admitting Unavailable MAGDALENO RIOS HRolanda Attending Unavailable Jose Miguel, Evan Lu Primary Care Physician Orlando Cole Admitting Unavailable Douglas, Orlando Boothe Attending Unavailable Douglas, Orlando Boothe Referring Unavailable Areli, Cameron Azul Admitting Unavailable Areli, Cameron Azul Attending Unavailable Areli, Cameron Azul Referring Unavailable JOSE MIGUEL, DR MARADIAGA Admitting Unavailable JOSE MIGUEL, DR MARADIAGA Primary Care Unavailable SUPERIOR, DR MARADIAGA Consulting Unavailable SUPERIOR, DR MARADIAGA Attending Unavailable SUPERIOR, DR MARADIAGA Primary Care Unavailable SUPERIOR, DR MARADIAGA Consulting Unavailable SUPERIOR, DR MARADIAGA Attending Unavailable JOSE MIGUEL, DR MARADIAGA Admitting Unavailable JOSELITO, DR JOSH Saenz Consulting Unavailable Jose Powers MD Primary Care Provider Abimbola BLEACH BOILER PACKER, Mela Unavailable MELA DAILY Attending Unavailable ZAIDA FLORES Attending Unavailable ABIMBOLA, MELA Attending Unavailable DORA BELTRAN Attending Unavailable MELA DAILY Referring Unavailable Medications Current Medications Medication Drug Class(es) Dates Sig (Normalized) Sig (Original) acetaminophen 325 mg / HYDROcodone bitartrate 5 mg oral tablet (4 sources) Opioid Agonist Start: 09-10-2020 End: 09-11-2020 take 1 tablet by mouth every six hours as needed for pain 1 tablet, Oral, EVERY 6 HOURS PRN, Pain Moderate (4-6), Starting 09/10/20 at 2045 Maximum dose of acetaminophen is 4000 mg [...] DAILY PRN, Muscle spasms, Starting 09/10/20 at 2045 1 ml dexamethasone phosphate 4 [...] (PF) injection 2 mg polyethylene glycol 3350 75472 mg powder for oral solution (1 source) [...] daily 0 09/10/2020 Discontinued (Therapy completed) sennosides, skilled nursing 8.6 mg oral tablet (1 source) Start: [...] 1960 Gender:F Ordering : DR EVAN GILLESPIE DAdams Admission #: [id number] Family : Order #: [id number] CLICK HERE TO VIEW EXAM RADIOLOGY REPORT PROCEDURE: MAMMOGRAM SCREENING 3D BILATERAL CAD COMPARISON: MAMMO ANGELICA SCREEN, 07/08/2013. MAMMO ANGELICA SCREEN, 01/08/2009. INDICATIONS: Screening mammography Calculator Name NCI Breast Cancer Risk Assessment Tool 5 Year Breast Cancer Risk Not Reported. Lifetime Breast Cancer Risk Not Reported. Personal Breast Cancer No Personal Ovarian Cancer No Treatments None Family Cancers None LOCATION: [facility] BREAST COMPOSITION: Scattered areas fibroglandular density. FINDINGS: [...] M.D. on 09/08/2022 at 13:34 Normal [facility] Coding Summary.on 06-02-2022 Coding Summary. [id number] h0bWw+PGhlYWQ+QC9LRSZ jL67soOGjhA3JB9xXPZ6O FOESMQOAZG0MMN6xjGN8T JqyK7DpmhBe DvvbwOYeSU97INq3WRE6q AulXUpjpP2xgUIuW4h1Nz NlBJ55fM11AAowPQUyWsY 3LjZpbjsgbWFy U9ssPlPaaPBwNmc+PHRhY mxlIHdpZHRoPScxMDAlJy UzlCzeYG9gDc7kQEPsUTZ vbGxhcHNlOiBj t7wxMUDzEHtrHR6ttYgkP 3RdrZS6SZQtc2n1Hw83yD I+XOUzQQE0wJaiUXvtf08 5SoUfk9nkVRV6 mETqKKqvUAJ1J63lw3V1E YHxIYUvXAZ1sTQ7vN1vfB emssqpJ6AhoVIhZbG1LEE 5hQKyjE3coVzi tkilgJ1aCez+E95NLG8XA AMIOS2UGpt9I2OzQlxxdB I+BF11JIHiJC50pJSejOL oo3dhaLf8QgGp BNQdTZY5yZvaVWvzv5DdF FUbZ61geTCmf9I0TRAqfP ugqSVrHhUmcST4dK4tKCt cotabn5tmvnyw Gllfl2obeh14rE87I31tX VedQYQpRZP1OTLyWMPqhZ knbt9mfQ8dTx7+EHfaz0m tx6ekqVu8XzKp PBYqvrZyuKyoMLG6o7PvR n77X7QwcSoyv2ZnDzh1do 18vRFht6Z8iMQ6RFgbFFR kdO8aIEhoBqY1 RLUrKbKbcT90fGRzHSleP v1pjBuevYmiHW9jMOUpcb ioKDCuzJ6wHGMalTNguPi rZB8gQQMajgbx o192JwYqCKP4VJSvzIDgZ 8YgdW5gPrUvQPJaRQUyN1 BogLAoNCasC818AOjwQhC 0LITsykMrZ3Ho SUKdbUdcIeF5g5F3Bv2Yg 7UbdtbmRLL2ZBqpEMK8Ve PrUfWyCdW6F9ZtUvz7PXK nmGwlLG2qS9Zf GEGlyvvxrtroqNP8EJPkF CLwvC58hMXcDUleKi5zo9 Q6v041QGAfWRFyqO17Jd9 udDogMTBwdCBU kN6bapmfn5bylfqnTaTjG BQhOLw7PEf0HQLkjQpoAi SkOLA1ZnD7IRL4wMEvuR2 grHgqipbxwZ3m Oyc+G18ckA1yTDP1QKB2i sbnCGNcysEhVD19AZ75O5 RyPjwvdGFibGU+PGRpdiB gpUxlAM0fBrZs x9rwi5XcZDclD6TiWTHqC OqcJzb3JNNjUCN5kJX7kG 0tECMuMYanr6H2mTZ6Y3H yehYuwj1yp9nn DWGtICzuU00zqAVuh5D9C GLdgRV5TCNobQosRcSuyS 93Oyc+SQWptCxju3DsGru rl0guf1qymPj2 RuKfWZQkkfGsyTjqCCY1b 3DiWt55N56iZRelGYJcRI EhDNNnIFQutEyvil2kiP6 wIi8+PGNvbCB3 xPO9fY6sCEHyJrH2IJxfZ 925ViVdsJZeVvdlo6sak6 orvSw8PzDpDURhnhSyfVw aNVO6s1NwCr65 H19hWTxhSFNxJQBqKXKlP GAaoHgmpz0dbX1rHa1+PC 2wd8unls50oZ08dOD+PHR sEEY3bVplDJvb FWMezE9aBTswCxA5HHCqO dHpyW68vLGkLHcgLi4euM hjnRxeUA9nOKJfuuzzv69 7MrElp9gaLLIw uSLwYNblQOT1L05al2J3P VDhYQKfKLV6hVL2eQ7dgW lnbjogbGVmdDsgdmVydGl rDFjyKHocZ669 IHRvcDsnPlBhdGllbnQgT iRqWDo4T5RrQuf7CRZbqS auDP5gbIWcRLujNz9btKi aiDfgOX4eNDVa lrvtv724AkLex2lyPGSyd UFqDYhtBMS0G90nb8V7IY OvZUCaAVL9xBA9vU8tkBa nbjogbGVmdDsg zcKvqBhcOPcdYPlkK522C HRvcDsnPkJpcnRoIERhdG T3NH32CD73rPYdz7L1lSR 1R8OoBZRumdmg yfqkoEE3MQXiIAUkvU93Y j7tiXdfEf3xEZRqFPK0BE IscPLuR8YvqB9gHtFcZWW mLIDyA3CcfIMc YDraM677FVivBvC0WJMrf pZuI8JpGXCdaSfyJqD3n6 Y0Fd0PT3Q6YQ18ZG00rMP wc1L3rPW4U6Cp KPEvvmvexecsjII9UBTqZ RTaeT03Mb9ycDyvQx8xYO PpIIM2QLYwtTRjR5DwkS5 yOiAjMDAwMDAw S4WvlHAmGLqhI289WKuvE vO5RQXjrjWoQ7KwVDLwyV tpOpP7i7V2Oa5LZWf6MR1 9KF49zPVxh0U4 bLB3T9PlVPYeixptcrpcu IV7OBQtSYPsfY22Hw9vdG izYv4jSKHvRPL5BBEhfGQ uX2GgqM7mMzCz URRiQKErO4YcjVOaBWicL 959OCflHfW5FIZukkAcX3 MaIXYkuBkcCnK1u3L6Ik4 VWFCeRR76JCJ3 cRB7BZ01EJ35H3DsQckiy GFibGU+PHRhYmxlIHdpZH RoPScxMDAlJyBzdHlsZT0 hTt5kMJXoAWRk eErkeVAmJlDlb1chMWAiS OlpJO0reXgoE8JbsIJ5AF Cxd2s3Uq76U42gB8JjcXJ +GLZepGZ8tKL8 oM6qZwRkWhQ2OUkmJ050D xFgwSFhNbwwv9rrz9ttlR b4MdY8IHJsbtCrlXvaGBJ 9i7VhCp75W56v IHdpZHRoPSIxNSUiIHZhb Qwgnu6fcB5yUq7+PGNvbC F0cWT9hU9zPfYgNgP2DPd bN043MvPirHZe Qzwqo3lmx1tyoEr6SvNvM PAzlgLabMctBHG6g1YmQb 84G0CtgOtcr4EwXxp1ef2 2jLHyv4S7lLT9 K9VzNUJrwysflRSsfLdmN Y8bYFWehcsfLZIdsG5lUV SoJ4h3IsIcCfC6JAreV1J kohD1SMEvxRZz RWqnRYC5J07rd5R0CDMcH LBkLNN8pYQ0jS8ssUvoyp ogbGVmdDsgdmVydGljYWw bBIvdY138BVAa nDmwCZHrsB6fEVPdaNKoe SrfTF6wJCIyjcejXe2NN4 JFLCBMVUNSRVRJQSBNPC9 9IV52wERaq5K4 wVY2S5ZnMABjrneuxkipw EE4OGNhGKIpqX54wZRbAR fhBu2mp1Z5g578SBBuMGN aoT43Ez4oyRhe WZEdzGGGrB2lxihsw7fva jrzMvUtZQXxAKs5BZb8JL PnsChxNxYgFEX1DkW3KXA 9yYVxvP9zjKxi vecsoF1xOyc+MDkvMTEvM Lw0IRxzqPA+QRVnQAF0hQ mjRYlfJDOjuU7dPAKtD6l 8RhHxAjF5LEqj A4MqIUZbkmkrJs63bU7iN sKhArE6BOjvF7BqhnW4NY ZotEUxFAyvIVJ8N69yc3X 1XPBlROKaUTH0 uKY3xP0rrHxcgatsgWHiy DsgdmVydGljYWwtYWxpZ2 46IHRvcDsnPjYxIFllYXJ yXM43QZ99zXRk p5L2qJF0Q2WwLOUzzosjp pjhtOV4DGQcQXQhiY61bS RjVFjgOz8nm7N5i830SPM cWRWabI37Jj4t wLzcMSNyoHTNoI9fdoacl 3fuyxdhAgOzADCgLWo3ZS d0IXNifAbzRtRyAGU0QyE 4ADE1mMNeuA2f xCxhtpawbZ4gNlz+RmVtY AdfPD45QI20wCXcc4Y5qH E0R0ZvLFPvxutpfabeeTM 3KSKnSNJkyL74 oBUgAJskQp6mb2A9p866L RLeLZRsaN81Ci2drRxoMV YxeHBSjA2tdnvrw1xsbkq gIzAwMDAwMDt0 VDg6HYVqvWgzVqBcGRJ7E bC5KCO1nLRsyP5tbNsioc owjT3hVhh+A5R3hUV8wLV udDwvdGQ+PC90 rg31V3MmKfdiHvk3WJEmW CG8qFB8gE8hQANlGVphm7 Y1nLK2O6YqtqAosw1dl0t hYDJyCGqsL95y sTSvj5K0JRApoVP1BWDjd QdxTyYjlA41Mth+PGNvbG jng1MqTwtxr9wlt8qlgSr 9IjMwJSIgdmFs rVoyJZM0k7OiZb91L58jI HdpZHRoPSIzMCUiIHZhbG jghr2emO4vRf6+PGNvbCB 2dNE8dB8hMjBy GeF5PIyjM558RyFfbFPfQ vdtv5vpm0mbrUd0GbBqZJ QwmqObfQxiKKE5g4DwQx7 2Q7MzgTjqp5Ps Jre5ct46bPPco6G1wQI7E 3BhZGRpbmctbGVmdDogMC 1oYGGeseizRYFbeY0fNZH hH7d1OuFyJpB5 ZVlfL2CfcpA9UETknIUgJ JIvcDFNlZ7tyqahz8abzo ncDdUvINUmECz9YQg7ZZO saWduOiBsZWZ0 ZdZ5VOE6mQJemO0muEeuc ffpmJ0rKry+RQz7w7cjmS LjHV9utAM7SB73WS55tTJ jv5A4zCZ3F5Xc HIApopuqwchqcMJ0OFXcZ PFxoB47Qr0fzUrxUv9vBR OtGEV3RMHtsJUiL3FluM1 yOiAjMDAwMDAw O9UfwTLvCWmwC617WQweJ cB0RZDdcoYfF2EwTVAjcY sbUtA4h7D0Dj7YIM82XE6 0LZ81bYDkj5Z5 sOU0D4RlHFDhytneornsh LV1YSWaXKPnhE15Io3asY wfQc7vMTXiLWO0MWTqmWN hO4BfiP6cEvBz MHLkVLOfB0LyqRJmVNqtH 096OHoyIhQ9BDAjcoCgH2 LhOXCrnTbyHbB5o3M4Xh8 OXo23BK86CG31 kJMjd5B5wHO5L7RfBAAhu pshmmiyaDH5ABBbCBQaaB 63Tx6lkQdtUa0jAGXlYPG 2WZBlrCNvA2Dl oJ4qEwFuVMPaBQVeM8Xtz NMvPDryW959IQjfMkB0HW EqijInB9EmEYIelXlfChQ 7v6F8Da1BHUuy zuc1O3JxNszdkOZ+PC90Y OAlRY11qOXdhGLfi9kafA e8ElSyHXXyVTT2vQajLAl nv8QgIARqZ20h bGFw (more content not included)... Normal [facility] Auto Diffon 09-09-2022 Basophils/100 WBC (Bld) 0.6 % Normal 0.0-2.0 [facility] Comment on above: Order Comment: Order Added by Discern Expert. Performed By: #### 7 [id number], [id number], 1221475, 2827037, [id number] #### [facility] [address] [place] [address] Basophils/Leukocytes Auto (Bld) [Pure # fraction] 0.0 E9/L Normal 0.0-0.2 [facility] Comment on above: Order Comment: Order Added by Discern Expert. Performed By: #### 7 [id number], 9444928, 1216872, 2202025, 10149939 #### [facility] [address] [place] [address]641 Eosinophils/100 WBC (Bld) 1.3 % Normal 0.0-8.0 [facility] Comment on above: Order Comment: Order Added by Discern Expert. Performed By: #### 7 [id number], 7604037, 6907884, 8690312, [id number] #### [facility] [address] [place] [address] 42175 Eosinophils/Leukocyte s Auto (Bld) [Pure # fraction] 0.1 E9/L Normal 0.0-0.5 [facility] Comment on above: Order Comment: Order Added by Discern Expert. Performed By: #### 7 [id number], 2728637, 9919437, 2962812, 58220637 #### [facility] [address] [place] [address] 50905 Lymphocytes/100 WBC (Bld) 32.4 % Normal 14.0-50.0 [facility] Comment on above: Order Comment: Order Added by Discern Expert. Performed By: #### 7 [id number], 8372322, 0754981, 8555725, 44087065 #### [facility] [address] [place] [address] 10059 Lymphocytes/Leukocyte s Auto (Bld) [Pure # fraction] 2.1 E9/L Normal 1.0-4.0 [facility] Comment on above: Order Comment: Order Added by Discern Expert. Performed By: #### 7 [id number], 4896917, 7240664, 6006635, 98301894 #### [facility] [address] [place] [address] Monocytes/100 WBC (Bld) 7.6 % Normal 4.0-14.0 [facility] Comment on above: Order Comment: Order Added by Discern Expert. Performed By: #### 7 [id number], 8463870, 0391939, 7959583, 69084277 #### [facility] [address] [place] [address] 09601 Monocytes/Leukocytes Auto (Bld) [Pure # fraction] 0.5 E9/L Normal 0.2-1.0 [facility] Comment on above: Order Comment: Order Added by Yosvany Expert. Performed By: #### 7 [id number], 0450250, 1924710, 3372406, 58385376 #### [facility] [address] [place] [address] 49547 Neutrophils/100 WBC (Bld) 58.1 % Normal 36.0-75.0 [facility] Comment on above: Order Comment: Order Added by Yosvany Expert. Performed By: #### 7 [id number], 5218150, 6350274, 7194982, 78018293 #### [facility] [address] [place] [address] 25225 Neutrophils/Leukocyte s Auto (Bld) [Pure # fraction] 3.7 E9/L Normal 2.0-7.5 [facility] Comment on above: Order Comment: Order Added by Yosvany Expert. Performed By: #### 7 [id number], 4343015, 4789324, 4639614, 74582810 #### [facility] [address] [place] [address] BMPon 05-30-2022 Anion gap [Moles/Vol] 11 mmol/L Normal 6-16 [facility] Comment on above: Performed By: #### 7 [id number], 9899853, 3673722, 0580321, 19517899 #### [facility] [address] [place] [address] Calcium [Mass/Vol] 9.1 mg/dL Normal 8.9-11.1 [facility] Comment on above: Performed By: #### 7 [id number], 0879481, 1641376, 1024756, 58759083 #### [facility] [address] [place] [address] Chloride [Moles/Vol] 102 mmol/L Normal 101-111 [facility] Comment on above: Performed By: #### 7 [id number], 8604079, 9714362, 0971705, 11786634 #### [facility] [address] [place] [address] CO2 [Moles/Vol] 28 mmol/L Normal 21-31 [facility] Comment on above: Performed By: #### 7 [id number], 2178664, 0394597, 8163001, 20017581 #### [facility] [address] [place] [address] Creatinine [Mass/Vol] 0.7 mg/dL Normal 0.5-1.3 [facility] Comment on above: Performed By: #### 7 [id number], 1166358, 0971837, 8900456, 95959092 #### [facility] [address] [place] [address] Glucose [Mass/Vol] 115 mg/dL Normal 55-199 [facility] Comment on above: Result Comment: If t his glucose result represents a fasting glucose, interpretation should refer to the following reference range: 55-99 mg/dL Performed By: #### 7 [id number], 5277892, 8299523, 6043299, 39433848 #### [facility] [address] [place] [address] Potassium [Moles/Vol] 4.1 mmol/L Normal 3.5-5.3 [facility] Comment on above: Performed By: #### 7 [id number], 4783574, 7373597, 8161207, 33709996 #### [facility] [address] [place] [address] Sodium [Moles/Vol] 137 mmol/L Normal 135-145 [facility] Comment on above: Performed By: #### 7 [id number], 9238029, 5571948, 5737299, 21159549 #### [facility] [address] [place] [address] Urea nitrogen [Mass/Vol] 14 mg/dL Normal 5-21 [facility] Comment on above: Performed By: #### 7 [id number], 1224519, 4834679, 7215501, 70197823 #### [facility] [address] [place] [id number] Urea nitrogen/Creatinine [Mass ratio] 20 No Units Normal 10-20 [facility] Comment on above: Performed By: #### 7 66829791, 4639254, 2151072, 8768996, 27551843 #### [facility] [address] [place] [address] CBC w/ Auto Diffon Erythrocyte distribution width (RBC) [Ratio] 13.7 % Normal 10.9-14.2 [facility] Comment on above: Performed By: #### 7 [id number], 6068096, 2818130, 3507249, 33921258 #### [facility] [address] [place] [address] Hematocrit (Bld) [Volume fraction] 41.6 % Normal 34.0-46.0 [facility] Comment on above: Performed By: #### 7 [id number], 8590458, 6903378, 1478504, 11986794 #### [facility] [address] [place] [address] 27666 Hemoglobin (Bld) [Mass/Vol] 14.7 g/dL Normal 12.0-16.0 [facility] Comment on above: Performed By: #### 7 62190436, 7913918, 0018864, 8639423, 81587448 #### [facility] [address] [place] [address] MCH (RBC) [Entitic mass] 32.5 pg Normal 27.0-34.0 [facility] Comment on above: Performed By: #### 7 46094617, 4102640, 1273299, 8024298, 92815743 #### [facility] [address] [place] [address] MCHC (RBC) [Mass/Vol] 35.4 g/dL Normal 31.4-36.0 [facility] Comment on above: Performed By: #### 7 [id number], 5051870, 4389481, 0513928, 74856484 #### [facility] [address] [place] [address] 53856 MCV (RBC) [Entitic vol] 91.8 fL Normal 80.0-100.0 [facility] Comment on above: Performed By: #### 7 27750451, 8377496, 4959473, 0706949, 48699199 #### [facility] [address] [place] [address] 84297 Platelet mean volume (Bld) [Entitic vol] 9.3 fL Normal 6.4-10.8 [facility] Comment on above: Performed By: #### 7 [id number], 5920395, 8370638, 0565833, 71722642 #### [facility] [address] [place] [address] 99512 Platelets (Bld) [#/Vol] 181.0 E9/L Normal 150.0-500.0 [facility] Comment on above: Performed By: #### 7 83420252, 3943744, 0640464, 3341021, 02224188 #### [facility] [address] [place] [address] 77166 RBC (Bld) [#/Vol] 4.5 E12/L Normal 4.3-5.9 [facility] Comment on above: Performed By: #### 7 51293384, 2501175, 1087146, 0447360, 82832133 #### [facility] [address] [place] [address] WBC corrected for nucl RBC Auto (Bld) [#/Vol] 6.4 E9/L Normal 4.0-11.0 [facility] Comment on above: Performed By: #### 7 85017015, 1543694, 8933511, 7638701, 90427409 #### [facility] [address] [place] [address] CHEMISTRYOrdered By: Relead SYSTEM on 05-30-2022 Anion gap [Moles/Vol] 11 [...] rate/Area] mL/min/1.73 m2 Normal >=59mL/min/1. 73 m2 [facility] Glucose [Mass/Vol] 115 mg/dL Normal [...] (Bld) [Mass fraction] 6.2 % High <=5.9% [facility] ChemAutoSS Consent for Treatmenton Consent for Treatment [id number] .00CD:127 Normal [facility] HEMATOLOGYOrdered By: SYSTEM SYSTEM on 05-30-2022 [...] 32.5 pg Normal 27.0 - 34.0 pg FT HemeAutoSS MCHC (RBC) [Mass/Vol] 35.4 g/dL Normal 31.4 - 36.0 gm/dL [facility] HemeAutoSS MCV (RBC) [Entitic vol] 91.8 fL Normal 80.0 - 100.0 fL [facility] HemeAutoSS Platelet mean volume (Bld) [Entitic vol] 9.3 fL Normal 6.4 - 10.8 fL [facility] HemeAutoSS Platelets (Bld) [#/Vol] 181.0 E9/L Normal 150.0 - 500.0 E9/L [facility] HemeAutoSS RBC (Bld) [#/Vol] 4.5 E12/L Normal 4.3 - 5.9 E12/L [facility] HemeAutoSS WBC corrected for nucl RBC Auto (Bld) [#/Vol] 6.4 E9/L Normal 4.0 - 11.0 E9/L FT HemeAutoSS [id number] 05-30-2022 HbA1c (Bld) [Mass fraction] 6.2 % High <=5.9 [facility] Comment on above: Performed By: #### 7 [id number], 5546967, 3764406, 1665821, 20541182 #### [facility] [address] [place] [address] XR Chest 2 Viewson 2 XR Chest [...] M.D. Transcribed by: JODEE Technologist: HALEY Normal [facility] eGFRon 05-30-2022 GFR/1.73 sq M.predicted among blacks MDRD (S/P/Bld) [Vol rate/Area] mL/min/{1.73_m2} Normal >=59 [facility] Comment on above: Order Comment: Order added by Discern Expert. Result Comment: eGFR is race adjusted. AA=. Performed By: #### 7 [id number], 4240064, 5631971, 2861385, 72833343 #### [facility] [address] [place] [address] GFR/1.73 sq M.predicted among non-blacks MDRD (S/P/Bld) [Vol rate/Area] mL/min/{1.73_m2} Normal >=59 [facility] Comment on above: Order Comment: Order added by Discern Expert. Result Comment: Surgical Elastic Knitter arnulfo kidney disease could be indicated at eGFR's of less than 60 mL/min/1.73m2. Kidney failure is indicated at less than 15 mL/min/1.73m2. Performed By: #### 7 [id number], 3492173, 8736559, 4324624, 73755898 #### [facility] [address] [place] [address] Physician Orderon 05-08-2022 Physician Order [id number] .00CD:127 Normal [facility] CBC AUTO DIFFon 11-11-2021 BASO # 0.0 103/ul Normal 0.0-0.1 [facility] Comment on above: Performed By: #### C BC #### [facility] [address] [place] [address] Dr. Farhat Mcneil Basophils/100 WBC (Bld) 0.6 % Normal 0.2-2.0 [facility] Comment on above: Performed By: #### C BC #### [facility] [address] [place] [address] Dr. Farhat Mcneil EO # 0.1 103/ul Normal 0.0-0.7 [facility] Comment on above: Performed By: #### C BC #### [facility] [address] [place] [address] Dr. Farhat Mcneil Eosinophils/100 WBC (Bld) 1.1 % Normal 0.9-7.0 [facility] Comment on above: Performed By: #### C BC #### [facility] [address] [place] [address] Dr. Farhat Mcneil Erythrocyte distribution width (RBC) [Ratio] 12.3 % Normal 11.0-15.0 [facility] Comment on above: Performed By: #### C BC #### [facility] [address] [place] [address] Dr. Farhat Mcneil Hematocrit (Bld) [Volume fraction] 43.6 % Normal 36.0-48.0 [facility] Comment on above: Performed By: #### C BC #### [facility] [address] [place] [address] Dr. Farhat Mcneil Hemoglobin (Bld) [Mass/Vol] 15.0 g/dL Normal 12.0-16.0 [facility] Comment on above: Performed By: #### C BC #### [facility] [address] [place] [address] Dr. Farhat Mcneil IG # 0.02 10e3/ul Normal 0.00-0.03 [facility] Comment on above: Performed By: #### C BC #### [facility] [address] [place] [address] Dr. Farhat Mcneil IG % 0.3 % Normal 0.0-0.5 [facility] Comment on above: Performed By: #### C BC #### [facility] [address] [place] [address] Dr. Farhat Mcneil LYMPH # 2.2 103/ul Normal 1.2-3.8 [facility] Comment on above: Performed By: #### C BC #### [facility] [address] [place] [address] Dr. Farhat Mcneil Lymphocytes/100 WBC (Bld) 31.0 % Normal 20.5-60.0 [facility] Comment on above: Performed By: #### C BC #### [facility] [address] [place] [address] Dr. Farhat Mcneil MANUAL DIFF REQ NO Normal [facility] Comment on above: Performed By: #### C BC #### [facility] [address] [address] [address] Farhat cMneil MCH (RBC) [Entitic mass] 31.5 pg Normal 26.7-34.0 [facility] Comment on above: Performed By: #### C BC #### [facility] [address] [place] [address] Dr. Farhat Mcneil MCHC (RBC) [Mass/Vol] 34.4 g/dL Normal 29.9-35.2 [facility] Comment on above: Performed By: #### C BC #### [facility] [address] [place] [address] Dr. Farhat Mcneil MCV (RBC) [Entitic vol] 91.6 fL Normal 81.0-99.0 [facility] Comment on above: Performed By: #### C BC #### [facility] [address] [place] [address] Dr. Farhat Mcneil MONO # 0.5 103/ul Normal 0.3-0.8 [facility] Comment on above: Performed By: #### C BC #### [facility] [address] [place] [address] Dr. Farhat Mcneil Monocytes/100 WBC (Bld) 6.3 % Normal 1.7-12.0 [facility] Comment on above: Performed By: #### C BC #### [facility] [address] [place] [address] Dr. Farhat Mcneil NEUT # 4.3 103/ul Normal 1.4-6.5 [facility] Comment on above: Performed By: #### C BC #### [facility] [address] [place] [address] Dr. Farhat Mcneil Neutrophils/100 WBC (Bld) 60.7 % Normal 43.0-75.0 [facility] Comment on above: Performed By: #### C BC #### [facility] [address] [place] [address] Dr. Farhat Mcneil Platelet mean volume (Bld) [Entitic vol] 10.6 fL Normal 9.5-13.5 [facility] Comment on above: Performed By: #### C BC #### [facility] [address] [address] [address] Farhat Mcneil PLT 187 103/ul Normal 150-450 [facility] Comment on above: Performed By: #### C BC #### [facility] [address] [address] [address] Farhat Mcneil RBC 4.76 106/ul Normal 4.20-5.40 [facility] Comment on above: Performed By: #### C BC #### [facility] [address] [address] [address] Farhat Mcneil WBC 7.1 103/ul Normal 4.0-11.0 [facility] Comment on above: Performed By: #### C BC #### [facility] [address] [place] [address] Dr. Farhat Mcneil LIPID PROFILEon 11-11-2021 CHOL-HDL RATIO NORM SEE BELOW Normal [facility] Comment on above: Result Comment: 3.3 - 4.4 LOW RISK 4.4 - 7.1 AVERAGE RISK 7.1 - 11.0 MODERATE RISK >11.0 HIGH RISK Performed By: #### L IPID, T4, CMP, TSH #### [facility] [address] [place] [address] Dr. Farhat Mcneil Cholesterol [Mass/Vol] 286 mg/dL Critically high <=200 [facility] Comment on above: Performed By: #### L IPID, T4, CMP, TSH #### [facility] [address] [place] [address] Dr. Farhat Mcneil Cholesterol in HDL [Mass/Vol] 44 mg/dL Normal [facility] Comment on above: Performed By: #### L IPID, T4, CMP, TSH #### [facility] [address] [place] [address] Dr. Farhat Mcneil Cholesterol in LDL [Mass/Vol] 187.2 mg/dL Normal [facility] Comment on above: Performed By: #### L IPID, T4, CMP, TSH #### [facility] [address] [address] [address] Farhat Mcneil Cholesterol.total/Cho lesterol in HDL [Mass ratio] 6.5 {ratio} Normal [facility] Comment on above: Performed By: #### L IPID, T4, CMP, TSH #### [facility] [address] [address] [address] Farhat Mcneil HDL NORMAL > or = 60 mg/dl - LO W CARDIOVASCULAR RISK <40 mg/dl - HIGH CARDIOVASCULAR RISK Normal [facility] Comment on above: Performed By: #### L IPID, T4, CMP, TSH #### [facility] [address] [address] [address] Farhat Mcneil LDL CALC NORMAL SEE BELOW Normal [facility] Comment on above: Result Comment: <100 mg/dl OPTIMAL 100 - 129 mg/dl NEAR OR ABOVE OPTIMAL 130 - 159 mg/dl BORDERLINE HIGH 160 - 189 mg/dl HIGH >190 mg/dl VERY HIGH Performed By: #### L IPID, T4, CMP, TSH #### [facility] [address] [address] [address] Farhat Mcneil Triglyceride [Mass/Vol] 274 mg/dL Critically high <=150 [facility] Comment on above: Performed By: #### L IPID, T4, CMP, TSH #### [facility] [address] [address] [address] Farhat Mcneil VLDL CALC 54.8 mg/dL Normal [facility] Comment on above: Performed By: #### L IPID, T4, CMP, TSH #### [facility] [address] [address] [address] Farhat Mcneil PROF 14(COMP METB)on 022 Albumin [Mass/Vol] 3.8 g/dL Normal 3.5-5.0 [facility] Comment on above: Performed By: #### L IPID, T4, CMP, TSH #### [facility] [address] [address] [address] Farhat Mcneil Albumin/Globulin [Mass ratio] 1.0 {ratio} Normal [facility] Comment on above: Performed By: #### L IPID, T4, CMP, TSH #### [facility] [address] [address] [address] Farhat Mcneil ALP [Catalytic activity/Vol] 102 U/L Normal 38-126 [facility] Comment on above: Performed By: #### L IPID, T4, CMP, TSH #### [facility] [address] [address] [address] Farhat Mcneil ALT [Catalytic activity/Vol] 46 U/L Normal 9-52 [facility] Comment on above: Performed By: #### L IPID, T4, CMP, TSH #### [facility] [address] [address] [address] Farhat Mcneil Anion gap [Moles/Vol] 9.2 mmol/L Normal [facility] Comment on above: Performed By: #### L IPID, T4, CMP, TSH #### [facility] [address] [place] [address] Dr. Farhat Mcneil AST [Catalytic activity/Vol] 21 U/L Normal 14-36 [facility] Comment on above: Performed By: #### L IPID, T4, CMP, TSH #### [facility] [address] [place] [address] Dr. Farhat Mcneil Bilirubin [Mass/Vol] 0.3 mg/dL Normal 0.2-1.3 [facility] Comment on above: Performed By: #### L IPID, T4, CMP, TSH #### [facility] [address] [address] [address] Farhat Mcneil Calcium [Mass/Vol] 9.0 mg/dL Normal 8.4-10.2 [facility] Comment on above: Performed By: #### L IPID, T4, CMP, TSH #### [facility] [address] [address] [address] Farhat Mcneil Chloride [Moles/Vol] 103 mmol/L Normal 98-107 [facility] Comment on above: Performed By: #### L IPID, T4, CMP, TSH #### [facility] [address] [address] [address] Farhat Mcneil CO2 [Moles/Vol] 30.7 mmol/L Critically high 22.0-30.0 [facility] Comment on above: Performed By: #### L IPID, T4, CMP, TSH #### [facility] [address] [address] [address] Farhat Mcneil Creatinine [Mass/Vol] 0.75 mg/dL Normal 0.52-1.04 [facility] Comment on above: Performed By: #### L IPID, T4, CMP, TSH #### [facility] [address] [place] [address] Dr. Farhat Mcneil EGFR-AF CZECH >60 Normal >=60 [facility] Comment on above: Performed By: #### L IPID, T4, CMP, TSH #### [facility] [address] [place] [address] Dr. Farhat Mcneil EGFR-NON AF CZECH >60 Normal >=60 [facility] Comment on above: Performed By: #### L IPID, T4, CMP, TSH #### [facility] [address] [place] [address] Dr. Farhat Mcneil Globulin (S) [Mass/Vol] 3.7 g/dL Normal [facility] Comment on above: Performed By: #### L IPID, T4, CMP, TSH #### [facility] [address] [place] [address] Dr. Farhat Mcneil Glucose [Mass/Vol] 126 mg/dL Critically high 74-106 [facility] Comment on above: Performed By: #### L IPID, T4, CMP, TSH #### [facility] [address] [place] [address] Dr. Farhat Mcneil Potassium [Moles/Vol] 3.9 mmol/L Normal 3.4-5.0 [facility] Comment on above: Performed By: #### L IPID, T4, CMP, TSH #### [facility] [address] [place] [address] Dr. Farhat Mcneil Protein [Mass/Vol] 7.5 g/dL Normal 6.1-8.2 [facility] Comment on above: Performed By: #### L IPID, T4, CMP, TSH #### [facility] [address] [place] [address] Dr. Farhat Mcneil Sodium [Moles/Vol] 139 mmol/L Normal 137-145 [facility] Comment on above: Performed By: #### L IPID, T4, CMP, TSH #### [facility] [address] [place] [address] Dr. Farhat Mcneil Urea nitrogen [Mass/Vol] 11.0 mg/dL Normal 7.0-17.0 [facility] Comment on above: Performed By: #### L IPID, T4, CMP, TSH #### [facility] [address] [place] [address] Dr. Farhat Mcneil Urea nitrogen/Creatinine [Mass ratio] 14.7 mg/mg Normal [facility] Comment on above: Performed By: #### L IPID, T4, CMP, TSH #### [facility] [address] [place] [address] Dr. Farhat Mcneil T4on 11-11-2021 T4 [Mass/Vol] 7.60 ug/dL Normal 5.53-11.00 [facility] Comment on above: Performed By: #### L IPID, T4, CMP, TSH #### [facility] [address] [place] [address] Dr. Farhat Mnceil TSHon 11-11-2021 TSH 2.278 uIU/mL Normal 0.470-4.680 [facility] Comment on above: Performed By: #### L IPID, T4, CMP, TSH #### [facility] [address] [place] [address] Dr. Farhat Mcneil TSH RANGE SEE BELOW Normal [facility] Comment on above: Result Comment: <0.3 4 UIU/ml HYPERTHYROID 0.34-5.60 UIU/ml EUTHYROID >5.60 UIU/ml HYPOTHYROID Performed By: #### L IPID, T4, CMP, TSH #### [facility] [address] [place] [address] Dr. Farhat Mcneil MRI Shoulder w/o + w/ Lefton 01-28-2022 MRI Shoulder w/o + w/ Left CLINICAL [...] by Josh Salguero on 10/21/2021 0956 Normal [facility] Coding Summary.on 10-05-2021 Coding Summary. CD:[id number] G h0bWw+PGhlYWQ+KD1NFJJ eH11bvQAlpG9FK9hLBV8X VSGOEBUNDI4QXC7zuYW1Q GbtJ4TpxnTa JbshgJQfDG91VVq4PYK3j EkmOJdocB7laGRrR7y5Wd VdYB58eU89AEsjYJNkQuQ 3LjZpbjsgbWFy X3inOoDmhMDbUkf+PHRhY mxlIHdpZHRoPScxMDAlJy NeuYfwQP4zGk9pHPJsSSA vbGxhcHNlOiBj p2qsIQSrFKcaSO0ihAqrM 4CydOM7HYNkn0l2Xt66uV I+ALEfPVF0iYgcTPzgy36 6HsElg9gzVDN8 yPCmXAnoAPQ6D06ww4B6L VAlWSUeJRA1rLO8xO4mdE qqkekkP0PwxFNoPxX9AWV 6zSNdwX5qeHoh djbniL5eSir+Q00UEH6EB KDMSA8FAnr0U8TwByuacT I+IL90CBRjSM97jTQxhWN sr9xgmZg1QzTd NOHbFDJ0sMlhUCbky8XmL GTsN18ueJJaz2C7IKOndQ qynMFmXtJymQC4jM3yVXl dcdguq4exujsh Eiqgc4efvg44nA83E36qT DguBDZeNNQ7YZZuYRXgvN wzgs4wbU9eJj2+DCrhr2x rt8uweAn4EjUe EHFxgeOgzLhiFXA4w9JnE y70B7UoeDtvx0LeUgv4nm 01mFCmk0Y0pQH2OFnzPRS ptX6fXSmzCrZ5 AVVbFbTpsN79qAGySClsP r8axJdmxAsyZU4nXXNcen jlCFVkwN8bZVBrzHGmuOt hYJ0hTGPmlaph g375KpXfOHD8CPKpbPQlH 4AcgQ4hAuDiFDVtLRUsE7 HoaIRoAMiwX540PTcfEmB 4JHCzywJlM1Dk ODPhpOqbAiH2q6C4Oz7Fs 9QzfybnSJQ9PKxmLDLnUu K6XoHwWzU1V1WsLop8PDN ngEoeGX5nO2Yz VIJdqnyipxastUU8DGJkE BAaqV58jWBgHYbyIu8rg9 T5g442LTQuLHFggP35Pg4 udDogMTBwdCBU wK2kwqadb6jblhelUvYkM OIeHEj0YAh9PFRzaEabFv RwACU9FpR8EXI3yKYigZ6 yjAwytjtnuV3u Oyc+F68spA6tLUZ7YTU6f vmmASXqgnPrMA75DC55Z2 RyPjwvdGFibGU+PGRpdiB bpDtkOC8tXbMo d3xzn9TyZTjwM4AfYHAnP NugUfh2GYGnHTZ9ePB2lD 9aGKUwXFekv7M6wQT8G2T katOynn0bl3bt SGKaWUfjM27wxKRlw1D7I AEtcKC2LPQflUtlGuLbjL 93Oyc+HJWhsKytt1CzIxf yw9xys3dhoBs4 EuXaYIYyuaZtdCirNSA7v 0WaLg60N17tYGmnBTOlFS AnCXOmFVCefFyclp1hmS1 wIi8+PGNvbCB3 xFY9jT9lOIRgTaD3YEirI 874LbVbjVEqDgcjd1sos4 bazJn4BhZmGMRjpgHniMi rBEJ6h9LaAi92 O78xNSwpECFaHQZsISMzL MHaaEqrnf6zuY8aOe8+PC 6ol0uwau76mD45wMN+PHR mZKE3rWveHFro RWNrmL6eRNlmMjT6SMTmK pYgvL26eDGuRJqxTa7wtF wqbRgiXK9cYYYlgjrob96 6SeQae7ftGUTv yKBtGMaeJDP0L50dj9D7I DYvOPGrDJQ4lOT5kF4gvK lnbjogbGVmdDsgdmVydGl oMXngWMqhL793 IHRvcDsnPlBhdGllbnQgT jGuQTx3O1RcKpg6WQMxxD qtEB9ijYMgLUwhQb8eqBv wsEovPS0rLKVn zbfyn812NbHgi3xxLBRpc VFkRXqcHBL7J12fj7Y4XS HpXMLbGQT2dOG3hL1xdEb nbjogbGVmdDsg bjOwdCfmFSnrVYdeS715T HRvcDsnPkJpcnRoIERhdG M8XE22VJ04lTJbw9A8hIB 7E9YtGYWmtfbw huhlkQK8GQJaKXUqyT05B z5gqXbqGc0aFCAvHQP2GR BhuGCvH8BstZ6gYlGaDAX bTTQrY6KdgLCv EHgqS690AFskOiQ1ULOwn tUvJ0SoAOQvaRrxUyR9v2 W4Op0ZB9N6OK06HB89tKI un3R7aDL6M3Yh NULxosqbajcqwTJ5KFPdQ MJxxI28Ac7ecKamQp0wSM JmPHQ3SXFicKLyK1NglQ5 yOiAjMDAwMDAw D1UdrNQyNJluS124GCsiA gK7VUAvjdObQ1JjRGFffD uqJtW6b8F1Bf6ZKUp4KZ1 6ZF54bZZkv2O4 rTG0J4FgTDSytxlpbiizh ZR2MWHnXZDbqZ67Wz2ndY omXr0jVVDdCCX8JFYxnJQ oR0IrsB8sXzNm YFVxCXMgP5MjsOPeDPvsT 249FFarGfE2HLMhowGxE8 IbPBNpmSwnLoT6z5G8Ou0 DNTAlPG98WCK1 fJH6PB51PJ13D4GqNnnhc GFibGU+PHRhYmxlIHdpZH RoPScxMDAlJyBzdHlsZT0 tWi5hQKDcZZNi yDgjpMYyHiEkp9vsDNHmH RziQX8ytQupC4EtkZM5YV Frg2c8Xd21Y74nI1FjpEZ +DSXyhAO3zTP9 hM1fEeNtJcH3MDkzF796V nJimETvIejkt9btz8sncH x3DnZ2OTYnxvAshMztMHX 4f9QfSq13B51e IHdpZHRoPSIxNSUiIHZhb Gdunz6fhE6gMi7+PGNvbC H9pTK0dD2jPiMqPhD1MFd xG334TsWmmXLy Yonex7bpp4atfVn6AiOqT PVaekEzxOzcMHK3y6IqBd 77T2TaxBkus0IgCkt5sj2 7ySGos3C3vTM0 K7KlQQRmmnmfhFPiuXhuC K7rDFKrymuyIXTflQ0fRU UqJ2o4WwYsCxJ0PLttQ7W lqpT5BETdfREi TKgiDLV5F49kg0A1FVWoF IWcDDL1dLF5bD7yhMvgxe ogbGVmdDsgdmVydGljYWw uIIzhD823CYQs zHxeAPJdaD3rQRIoyJWga JduHT0oYDGnrqxoMq2AU8 JFLCBMVUNSRVRJQSBNPC9 3LY37iZHic0J6 cHW9M8LvDQTyndspwjacg KJ6HSUsDIYbeN29oUXuVA dxZq5hj6U9i596IDObOTT iwU14Dx9ftFkq GKXdiMWQtO8dpbkyz0zkb wlvCbIjSXEmHRs3TIa0TW UqgIkwZiUrZMI9LhQ2RRI 9cFMgrL1weMyk piwhxW4zKnh+MDkvMTEvM Zr8AInlbYN+EACkLUV4oC czYWxyRDUsmF0tJTSeS8y 4DgYqPxL4JMtx N4QnDOOfvsyaCu19tQ2oI cGjSgH8SCxfL2TcdfQ0FB OjfAYvQYwlDSO3A14kz5J 6QELgZXZiGFN1 dXU0dN8ogEqlisxtbIMcu DsgdmVydGljYWwtYWxpZ2 46IHRvcDsnPjYwIFllYXJ iTC67TM50zJQd k2H5dHW3P3DlEPQudekgi wkkeQZ3RMGwWFIulA31vL IsCZemUb9jq2S9b144LSI cUOZfhA70Uu2a tBlwQZCmuPOUrZ1kkisqp 1xklqtaUnJqJQBtDCw8XC m4CBNqdDqpAwYkJSS7CoQ 7TWP6fYFpzC0i zHbscvpekM1vCwa+RmVtY PniYR16AZ24lFFoj9V1sW F5E4WsGWVyfpjmvmzdyVD 4LXPlUJLpxS75 hXIkEWdrLi0th0L8l181I JVvCRIajE05Tp4ghVjaGT QhxKZPpK4onbgem4rakba gIzAwMDAwMDt0 MEd6CHVagZjcGhZbFAV0S vE7DVA6sIQiiZ7fmLddlm sosK1tAup+V6R6tUM4tPY udDwvdGQ+PC90 xn01K0FvThzpGtw9DFOdI AF4bTV6bG0oGBObTMsys8 Z3aPM7C5TtcaOzln4jh0t sNAKbCIzgF37t fRZka2G1AXFxgSZ2QXAnp ElyFzLvhU56Axl+PGNvbG hdo5GrNhbtq7vps1oexVb 9IjMwJSIgdmFs iYswOZI5m8HaTl37G66yU HdpZHRoPSIzMCUiIHZhbG oatt2sqO5hLb9+PGNvbCB 3sNV0xB3qKeXt JmM6EKpiI492ZvMolCRvM steo7xzf7tciLq3CyAmIJ FfclRolTtcXLE7e5UvRg1 9A0GlwWzjt4De Ogg6wa84mRShx5I8xYT6N 3BhZGRpbmctbGVmdDogMC 5jUIXdglneFEYhvF6oZXQ qQ6w0TrJnZlD3 RBvfM1YhsvL9CVCxuTKpZ QGkxVVWxK5yyytyc9svay oxZnVkPNAdKMe0VRm4HRM saWduOiBsZWZ0 GvE8WPA3pTKckE0azSqne eowvX6gWjp+MAz4i5lfjX GnKD8ceDK8GW95PR62iVV kt7T7vNW7P2Fn UZVlecdtxmvjoBM3QYPgA AZlkX92Dw7ruIktVw6mNO DrCJW5YOBbuXYuU0QlyX7 yOiAjMDAwMDAw U7UwtKTkUUksY351WZkiC yT7VLHiikWoH1EfHYDutG trVlD8h8M7Ur3JMG89OJ9 1BH36cVFad9A8 xYP3A3LtTVCdjmpgsvjxi PO3FFAoUKZvkF73Hf7pdM ucCp3uRMNrJQY3SLXmyRO mS8QtnN2zTsVk UODaAOYrO2RpvAVqRNifZ 990YQgbRxL7JLUugmGvA2 ZcCNBdaBkpSwA8y3Y8Pr2 DBb75VM32XX37 lDGxr2V8pSF8A0BzIIUsj kedkaljlDH9CLGxIFNvlB 31Of5rnKiiGx8kIDMoRIV 8ZHZfaWWoP1Dk aU8bKaUvEPFmITKlX8Xkb UXfDLdrL533NKhzKkY7ZG JxrrHgE0OdPLUpgIvkOyO 0o5F7Lz5RMAek leq7M2KsAnjnnGI+PC90Y JImGT56sKNcmLSwi3xwgU o5YoMpOVYuBBU5wNjsHXd ff5MfNHPsB13z bGFw (more content not included)... Normal [facility] Consent for Treatmenton -3 Consent for Treatment [id number] .[id number]:127 Normal [facility] NM Bone Scan 3 Phaseon 09-20 [...] 21.3 Imaging Post Administration (hrs): 3 Normal [facility] Physician Orderon 09-12-2021 Physician Order [id number]# 1.00CD:127 Normal [facility] MRI Shoulder w/o Lefton 0 MRI [...] diaphysis as seen on sagittal T1 image . No well-defined bone lesion or soft tissue [...] by Jackson Ma on 08/28/2021 0949 Normal [facility] Specialist FLUORO FOR SURGICAL PROCEDUR ESon [...] Phillip Corral MD 09/11/20 Final result Normal [facility] Rory, Chpo Incoming Radiant Results From [facility]Tw[facility]/Pacs - 09/11/2020 5:09 PM EST FLUORO FOR SURGICAL PROCEDURES : 09/11/2020 3:53 PM CLINICAL HISTORY: Lumbar Diskectomy . COMPARISON: None available. Intraoperative fluoroscopy was provided for Dr. Gabriel gonzalez. A total of 1 seconds of fluoroscopy was used, with 4 fluoroscopic stills saved. No diagnostic images were obtained. Please see Dr. Rios surgical notes for completeness. [place], [place] FLUORO FOR SURGICAL PROCEDURES : 09/11/2020 3:53 PM CLINICAL HISTORY: Lumbar Diskectomy . COMPARISON: None available. Intraoperative fluoroscopy was provided for Dr. Gabriel gonzalez. A total of 1 seconds of fluoroscopy was used, with 4 fluoroscopic stills saved. No diagnostic images were obtained. Please see Dr. Rios surgical notes for completeness. [place], [place] POCT Glucoseon 09-11-2020 Glucose [Mass/Vol] 145 mg/dL Critically high 60-115 M [facility] Comment on above: Performed By: #### P GLU #### [facility] [address] [place] [address] POC Performed on ACCU-CHEK Normal [facility] Comment on above: Performed By: #### P GLU #### [facility] [address] [place] [address] Glucose [Mass/Vol] 145 mg/dL High 60 - 115 mg/dl [facility] [place] Interpretation and review of laboratory results Abnormal [facility], [place] Performed on ACCU-CHEK [facility], [place] Glucose [Mass/Vol] 131 mg/dL Critically high 60-115 M [facility] Comment on above: Performed By: #### P GLU #### [facility] [address] [facility] [place] [address] POC Performed on ACCU-CHEK Normal [facility] Comment on above: Performed By: #### P GLU #### [facility] [address] [facility] [place] [address] Glucose [Mass/Vol] 131 mg/dL High 60 - 115 mg/dl [place], [place] Interpretation and review of laboratory results Abnormal [facility], [place] Performed on ACCU-CHEK [facility] [place] Surgical Specimenon 09-11-20 Surgical Specimen [facility] [address] [place] [address] FINAL SURGICAL PATHOLOGY REPORT Patient Name: JORDY DUNNE Accession No: [id number] Age Sex: 1960 Location: [place] [address] Account No: [id number] Collected: 09/11/2020 Med Rec No: [id number] Received: 09/12/2020 Attend Phys: MAGDALENO RIOS Completed: [...] one cassette after brief decalcification. ALIFA/ALIFA CPT: 02056 X1 [id number] X1 VENKATESH COTTON M.D. 09/13/2020 Electronically signed out by Page 1 of 1 [facility] Comment on above: Performed By: #### S UR #### [facility] [address] [place] [address] XR CHEST PORTABLEon 09-11-20 20 INR Coag (Bld) [Relative time] NO ACUTE ACTIVE CARDIOPULMONARY PROCESS [place], [place] EXAMINATION: CHEST PORTABLE VIEW CLINICAL HISTORY: Back pain COMPARISONS: None FINDINGS: Single views of the chest is submitted. The cardiac silhouette is enlarged. Pulmonary vascular unremarkable. Right sided trachea. No focal infiltrates. No Pneumothoraces. [place], [place] Rory, appirispo Incoming Radiant Results From [employer] - 09/11/2020 7:58 AM EST EXAMINATION: CHEST PORTABLE VIEW CLINICAL HISTORY: Back pain COMPARISONS: None FINDINGS: Single views of the chest is submitted. The cardiac silhouette is enlarged. Pulmonary vascular unremarkable. Right sided trachea. No focal infiltrates. No Pneumothoraces. IMPRESSION: NO ACUTE ACTIVE CARDIOPULMONARY PROCESS [place] XR LUMBAR SPINE (MIN 4 VIEWS )on 09-11-2020 Rory, Chpo Incoming Radiant Results From [facility] - 09/11/2020 10:22 AM EST EXAMINATION: XR [...] show degenerative changes.. IMPRESSION NO ACUTE FRACTURE. [place] EXAMINATION: XR LUMBAR SPINE (MIN 4 [...] show degenerative changes.. IMPRESSION NO ACUTE FRACTURE. [place] APTTon 09-10-2020 aPTT Coag (Bld) [Time] 30.5 s [place], [place] Comment on above: Effective 07/25/2020: Heparin Therapeutic Range: 64.0 98.0 seconds. CBC Auto Differentialon 12-2 Basophils (Bld) [#/Vol] 0.1 10*3/uL 0 - 0.2 K/uL [place] Basophils/100 WBC (Bld) 0.7 % [place] Eosinophils (Bld) [#/Vol] 0.0 10*3/uL 0 - 0.7 K/uL [place] Eosinophils/100 WBC (Bld) 0.2 % [place] Erythrocyte distribution width (RBC) [Ratio] 13.2 % 11.5 - 14.5 % [place] Hematocrit (Bld) [Volume fraction] 41.0 % 37 - 47 % [place] Hemoglobin (Bld) [Mass/Vol] 14.2 g/dL 12 - 16 g/dL [place] Interpretation and review of laboratory results Abnormal [place] Lymphocytes (Bld) [#/Vol] 2.9 10*3/uL 1 - 4.8 K/uL [place] Lymphocytes/100 WBC (Bld) 25.0 % [place] MCH (RBC) [Entitic mass] 32.9 pg High 27 - 31.3 pg [place] MCHC (RBC) [Mass/Vol] 34.6 % 33 - 37 % [place] MCV (RBC) [Entitic vol] 95.0 fL 82 - 100 fL [place] Monocytes (Bld) [#/Vol] 0.4 10*3/uL 0.2 - 0.8 K/uL [place] Monocytes/100 WBC (Bld) 3.8 % [place] Neutrophils Absolute 8.2 K/uL High 1.4 - 6 .5 K/uL [place] Neutrophils/100 WBC (Bld) 70.3 % [place] Platelets (Bld) [#/Vol] 196 10*3/uL 130 - 400 K/uL [place] RBC (Bld) [#/Vol] 4.32 10*6/uL [place] WBC (Bld) [#/Vol] 11.6 10*3/uL High 4.8 - 10.8 K/uL [place] CBC With Platelet and Differ entialon 09-10-2020 Basophils (Bld) [#/Vol] 0.1 10*3/uL Normal 0.0-0.2 [facility] Comment on above: Performed By: #### C BCWD #### [facility] [address] [place] [address] Basophils/100 WBC (Bld) 0.7 % Normal [facility] Comment on above: Performed By: #### C BCWD #### [facility] [address] [place] [address] Eosinophils (Bld) [#/Vol] 0.0 10*3/uL Normal 0.0-0.7 [facility] Comment on above: Performed By: #### C BCWD #### [facility] [address] [place] [address] Eosinophils/100 WBC (Bld) 0.2 % Normal [facility] Comment on above: Performed By: #### C BCWD #### [facility] [address] [place] [address] Erythrocyte distribution width (RBC) [Ratio] 13.2 % Normal 11.5-14.5 [facility] Comment on above: Performed By: #### C BCWD #### [facility] [address] [place] [address] Hematocrit (Bld) [Volume fraction] 41.0 % Normal 37.0-47.0 [facility] Comment on above: Performed By: #### C BCWD #### [facility] [address] [place] [address] Hemoglobin (Bld) [Mass/Vol] 14.2 g/dL Normal 12.0-16.0 [facility] Comment on above: Performed By: #### C BCWD #### [facility] [address] [place] [address] Lymphocytes (Bld) [#/Vol] 2.9 10*3/uL Normal 1.0-4.8 [facility] Comment on above: Performed By: #### C BCWD #### [facility] [address] [place] [address] Lymphocytes/100 WBC (Bld) 25.0 % Normal [facility] Comment on above: Performed By: #### C BCWD #### [facility] [address] [place] [address] MCH (RBC) [Entitic mass] 32.9 pg Critically high 27.0-31.3 [facility] Comment on above: Performed By: #### C BCWD #### [facility] [address] [place] [address] MCHC (RBC) [Mass/Vol] 34.6 % Normal 33.0-37.0 [facility] Comment on above: Performed By: #### C BCWD #### [facility] [address] [place] [address] MCV (RBC) [Entitic vol] 95.0 fL Normal 82.0-100.0 [facility] Comment on above: Performed By: #### C BCWD #### [facility] [address] [place] [address] Monocytes (Bld) [#/Vol] 0.4 10*3/uL Normal 0.2-0.8 [facility] Comment on above: Performed By: #### C BCWD #### [facility] [address] [place] [address] Monocytes/100 WBC (Bld) 3.8 % Normal [facility] Comment on above: Performed By: #### C BCWD #### [facility] [address] [place] [address] Neutrophils (Bld) [#/Vol] 8.2 10*3/uL Critically high 1.4-6.5 [facility] Comment on above: Performed By: #### C BCWD #### [facility] [address] [place] [address] Neutrophils/100 WBC (Bld) 70.3 % Normal [facility] Comment on above: Performed By: #### C BCWD #### [facility] [address] [place] [address] Platelets (Bld) [#/Vol] 196 10*3/uL Normal 130-400 [facility] Comment on above: Performed By: #### C BCWD #### [facility] [address] [place] [address] RBC (Bld) [#/Vol] 4.32 10*6/uL Normal 4.20-5.40 [facility] Comment on above: Performed By: #### C BCWD #### [facility] [address] [place] [address] WBC (Bld) [#/Vol] 11.6 10*3/uL Critically high 4.8-10.8 [facility] Comment on above: Performed By: #### C BCWD #### [facility] [address] [place] [address] COVID-19on 09-10-2020 COVID-19, NAAT Not Detected Normal Not Detect [facility] Comment on above: Result Comment: Rapi d [...] authorized laboratories. Fact sheet for Healthcare Providers: https://www.fda.gov/media/001062/download Fact sheet for Patients: https://www.fda.gov/media/232962/download METHODOLOGY: Isothermal Nucleic Acid Amplification Performed By: #### C OVPC #### [facility] [address] [place] [address] SARS-CoV-2, NAAT Not Detected Not Detected [facility] Comment on above: Rapid NAAT: Negative results [...] authorized laboratories. Fact sheet for Healthcare Providers: https://www.fda.gov/media/801837/download Fact sheet for Patients: https://www.fda.gov/media/495279/download METHODOLOGY: Isothermal Nucleic Acid Amplification Comprehensive Metabolic Pane felipa 09-10-2020 Albumin [Mass/Vol] 3.9 g/dL Normal 3.5-4.6 [facility] Comment on above: Performed By: #### C MP #### [facility] [address] [facility] [address] ALP [Catalytic activity/Vol] 76 U/L Normal 40-130 [facility] Comment on above: Performed By: #### C MP #### [facility] [address] [facility] [address] ALT [Catalytic activity/Vol] 22 U/L Normal 0-33 [facility] Comment on above: Result Comment: Spec imen hemolysis has exceeded the interference as defined by Shikha. Result may be affected. Suggest recollection if clinically indicated. Performed By: #### C MP #### [facility] [address] [facility] [address] Anion gap [Moles/Vol] 9 mmol/L Normal 9-15 [facility] Comment on above: Performed By: #### C MP #### [facility] [address] [facility] [address] AST [Catalytic activity/Vol] 18 U/L Normal 0-35 [facility] Comment on above: Result Comment: Spec imen hemolysis has exceeded the interference as defined by Shikha. Value may be falsely increased. Suggest recollection if clinically indicated. Performed By: #### C MP #### [facility] [address] [place] [address] Bilirubin [Mass/Vol] 0.3 mg/dL Normal 0.2-0.7 [facility] Comment on above: Performed By: #### C MP #### [facility] [address] [place] [address] Calcium [Mass/Vol] 9.2 mg/dL Normal 8.5-9.9 [facility] Comment on above: Performed By: #### C MP #### [facility] [address] [place] [address] Chloride [Moles/Vol] 103 mmol/L Normal 95-107 [facility] Comment on above: Performed By: #### C MP #### [facility] [address] [place] [address] CO2 [Moles/Vol] 28 mmol/L Normal 20-31 [facility] Comment on above: Performed By: #### C MP #### [facility] [address] [place] [address] Creatinine [Mass/Vol] 0.67 mg/dL Normal 0.50-0.90 [facility] Comment on above: Performed By: #### C MP #### [facility] [address] [place] [address] GFR/1.73 sq M predicted among blacks MDRD (S/P/Bld) [Vol rate/Area] mL/min/{1.73_m2} Normal >60 [facility] Comment on above: Result Comment: >60 mL/min/1.73m2 EGFR, calc. for ages 18 and older using the MDRD formula (not corrected for weight), is valid for stable renal function. Performed By: #### C MP #### [facility] [address] [place] [address] GFR/1.73 sq M.predicted MDRD (S/P/Bld) [Vol rate/Area] mL/min/{1.73_m2} Normal >60 [facility] Comment on above: Result Comment: >60 mL/min/1.73m2 EGFR, calc. for ages 18 and older using the MDRD formula (not corrected for weight), is valid for stable renal function. Performed By: #### C MP #### [facility] [address] [place] [address] Globulin (S) [Mass/Vol] 2.4 g/dL Normal 2.3-3.5 [facility] Comment on above: Performed By: #### C MP #### [facility] [address] [place] [address] Glucose [Mass/Vol] 189 mg/dL Critically high 70-99 [facility] Comment on above: Performed By: #### C MP #### [facility] [address] [place] [address] Potassium [Moles/Vol] 4.2 mmol/L Normal 3.4-4.9 [facility] Comment on above: Result Comment: Spec imen hemolysis has exceeded the interference as defined by Shikha. Value may be falsely increased. Suggest recollection if clinically indicated. Performed By: #### C MP #### [facility] [address] [place] [address] Protein [Mass/Vol] 6.3 g/dL Normal 6.3-8.0 [facility] Comment on above: Performed By: #### C MP #### [facility] [address] [place] [address] Sodium [Moles/Vol] 140 mmol/L Normal 135-144 [facility] Comment on above: Performed By: #### C MP #### [facility] [address] [place] [address] Urea nitrogen [Mass/Vol] 17 mg/dL Normal 6-20 [facility] Comment on above: Performed By: #### C MP #### [facility] [address] [place] [address] Albumin [Mass/Vol] 3.9 g/dL 3.5 - 4.6 g/dL [place], [place] ALP [Catalytic activity/Vol] 76 U/L 40 - 130 U/L [place] ALT [Catalytic activity/Vol] 22 U/L 0 - 33 U/L [place] Comment on above: Specimen hemolysis h as exceeded the interference as defined by Shikha. Result may be affected. Suggest recollection if clinically indicated. Anion gap [Moles/Vol] 9 mmol/L [place] AST [Catalytic activity/Vol] 18 U/L 0 - 35 U/L [place] Comment on above: Specimen hemolysis h as exceeded the interference as defined by Shikha. Value may be falsely increased. Suggest recollection if clinically indicated. Bilirubin Ql (U) 0.3 mg/dL 0.2 - 0.7 mg/dL [place] Calcium [Mass/Vol] 9.2 mg/dL 8.5 - 9.9 mg/dL [place] Chloride [Moles/Vol] 103 mmol/L [place] CO2 [Moles/Vol] 28 mmol/L [place] Creatinine [Mass/Vol] 0.67 mg/dL 0.5 - 0.9 mg/dL [place] GFR >60.0 >60 [place] Comment on above: >60 mL/min/1.73m2 EG FR, calc. for ages 18 and older using the MDRD formula (not corrected for weight), is valid for stable renal function. GFR Non- >60.0 >60 [place] Comment on above: >60 mL/min/1.73m2 EG FR, calc. for ages 18 and older using the MDRD formula (not corrected for weight), is valid for stable renal function. Globulin (S) [Mass/Vol] 2.4 g/dL 2.3 - 3.5 g/dL [place] Glucose [Mass/Vol] 189 mg/dL High 70 - 99 mg/dL [place] Interpretation and review of laboratory results Abnormal [place] Potassium [Moles/Vol] 4.2 mmol/L [place] Comment on above: Specimen hemolysis h as exceeded the interference as defined by Shikha. Value may be falsely increased. Suggest recollection if clinically indicated. Protein [Mass/Vol] 6.3 g/dL 6.3 - 8 g/dL [place] Sodium [Moles/Vol] 140 mmol/L [place] Urea nitrogen [Mass/Vol] 17 mg/dL 6 - 20 mg/dL [place] MRI LUMBAR SPINE WO CONTRAST on [...] Nando Dixon MD 09/10/20 Final result Normal [facility] Rory, Chpo Incoming Radiant Results From dbTwange/Pacs - 09/10/2020 4:27 PM EST STUDY IS [...] superior facet joint spurring and/or ligamentous thickening. [place] STUDY IS REVIEWED WITH THE REFERRING [...] superior facet joint spurring and/or ligamentous thickening. [place] Partial Thromboplastin Timeo n 09-10-2020 aPTT Coag (Bld) [Time] 30.5 s Normal 24.4-36.8 [facility] Comment on above: Result Comment: Effe ctive 07/25/2020: Heparin Therapeutic Range: 64.0 ? 98.0 seconds. Performed By: #### P TT #### [facility] [address] [place] [address] Prothrombin Timeon 0 INR Coag (PPP) [Relative time] 1.1 {INR} Normal [facility] Comment on above: Performed By: #### P T #### [facility] [address] [place] [address] PT Coag (PPP) [Time] 13.9 s Normal 12.3-14.9 [facility] Comment on above: Performed By: #### P T #### [facility] [address] [place] [address] Protime-INRon 09-10-2020 INR Coag (PPP) [Relative time] 1.1 {INR} [place], [place] PT Coag (PPP) [Time] 13.9 s [place] XR CHEST PORTABLEon 12-21-20 20 XR CHEST PORTABLE EXAMINATION: CHEST PORTABLE VIEW CLINICAL HISTORY: Back pain COMPARISONS: None FINDINGS: Single views of the chest is submitted. The cardiac silhouette is enlarged. Pulmonary vascular unremarkable. Right sided trachea. No focal infiltrates. No Pneumothoraces. IMPRESSION: NO ACUTE ACTIVE CARDIOPULMONARY PROCESS Interpreted by: Phillip Corral MD Signed by: Phillip Corral MD 09/11/20 Final result Normal [facility] XR LUMBAR SPINE (MIN 4 VIEWS )on [...] Phillip Corral MD 09/11/20 Final result Normal [facility] Vital Signs Date Time Vital Sign Value Performing Clinician Faci lity 09-11-2020 17:30-0500 BP Diastolic 94 mm[Hg] [place], [place] 09-11-2020 17:30-0500 BP Systolic 182 mm[Hg] [facility] [place] 09-11-2020 17:30-0500 Pulse (Heart Rate) 60 /min [place] 09-11-2020 17:30-0500 Pulse Oximetry 94 % [place] 09-11-2020 17:30-0500 Respiratory Rate 19 /min [facility] [employer] [facility] 09-11-2020 16:50-0500 Body Temperature 98.01 [facility]degF] [facility] [place] 09-10-2020 10:41-0500 BMI (Body Mass Index) 27.46 kg/m2 [facility] [place] 09-10-2020 10:41-0500 Body weight 72.58 kg [place] 09-10-2020 10:41-0500 Height 162.6 cm Magdaleno Gabriel [facility] [place] , [place] Encounters Encounter Date Encounter Type Care Provider Facility Start: 11-30-2023 End: 11-30-2023 ambulatory DORA BELTRAN Not Available Start: 11-10-2023 End: 11-10-2023 ambulatory ZAIDA FLORES Not Available Start: 10-27-2023 Refill Mela Daily [employer] Work Phone: [facility] Comment on above: Mixed hyperlipidemia (CMS/HCC) (Primary Dx) Start: 10-05-2023 End: 10-05-2023 ambulatory MELA AICHHOLZ Not Available Start: 08-25-2023 End: 08-25-2023 ambulatory MELA AICHHOLZ Not Available Start: 09-05-2022 End: 09-06-[address] EVAN GILLESPIE Facility: Start: 05-30-2022 End: 05-31-2022 ambulatory Orlando Cole [facility] Start: 05-30-2022 End: 05-30-2022 Patient encounter procedure Orlando Cole [facility] Start: 11-12-2021 Encounter for genera l adult medical examination without abnormal findings DR EVAN GILLESPIE [facility] Start: 11-11-2021 End: 11-12-[address] EVAN GILLESPIE Facility: Start: 11-11-2021 End: 11-12-2021 Encounter for general adult medical examination without abnormal findings DR EVAN GILLESPIE Facility:[facility] Start: 09-20-2021 End: 09-21-2021 ambulatory Cameron Singleton [facility] Start: 09-10-2020 End: 09-11-2020 Evaluation and management of inpatient SR EVAN GILLESPIE [facility] Start: 09-10-2020 End: 09-11-2020 Evaluation and management of inpatient Magdaleno H. Gabriel Work Phone: [facility] Comment on above: Right leg weakness ( Primary Dx); Protruded lumbar disc; Postoperative pain Procedures Date Procedure Procedure Detail Performing Clinician Start: 09-30-2023 Mammography Mela Elda olz [employer] Work Phone: Start: 09-11-2020 Fluoroscopy during operation Magdaleno H. Gabriel Work Phone: Start: 09-11-2020 Gluc bld gluc [...] Phone: Start: 09-10-2020 COVID-19 Celsa Hardy Mur ashish Work Phone: Start: 09-10-2020 Ecg routine ecg [...] for malign ant neoplasm of breast Mammogram [facility] Start: 01-07-2024 End: 01-07-2024 Patient encounter procedure 01/07/2024 9:40 AM EDT Office Visit [facility] [address] [place] [phone] Mela Daily NP [address] [place] [id number] [facility] Start: 11-20-2023 Screening for malign ant neoplasm of cervix Cervical Cancer Screening [facility] Comment on above: Postponed from 06/01 (Other Medical Reasons) Start: 11-20-2023 Screening for malign ant neoplasm of colon Colorectal Cancer Screening [facility] Comment on above: Postponed from 06/01 (Other Medical Reasons) Start: 11-10-2023 End: 11-10-2023 Patient encounter procedure 11/10/2023 8:30 AM EST Office Visit [facility] [address] [place] [phone] Zaida Flores MD [address] [place] [address] [facility] Start: 08-29-2022 Hemoglobin A1c measurement Diabetes: Hemoglobin A1C [facility] Start: 09-24-2020 End: 09-24-2020 Office Visit 09/24/2020 Office Visit Neurosurgery Magdaleno Rios MD [address], [address] [place] [address] [employer] Start: 05-22-2020 Influenza vaccination Flu vaccine (# 1) [place], [place] Start: 2011 Screening for malign ant neoplasm of breast Breast cancer screen [place] Start: 2011 Screening for malign ant neoplasm of colon Colon cancer screen colonoscopy [place] Start: 2011 Shingles Vaccine (1 of 2) Shingles Vaccine (1 of 2) [place] Start: 2001 Diabetes screen Diabetes screen [place], [place] Start: 2001 Lipid panel Lipid screen [place], [place] Start: 1991 Screening for malign ant neoplasm of cervix HPV/Cotest [facility] Start: 1982 Screening for malign ant neoplasm of cervix [facility] Start: 1980 DTaP/Tdap/Td vaccine (1 - Tdap) DTaP/Tdap/Td vaccine (1 - Tdap) [place] Start: 1980 Urine screening for protein Diabetes: Urine Protein Screening [facility] Start: 1976 HIV screening HIV screen [place], [place] Start: 1971 Glaucoma screening Diabetes: R etinopathy Screening [facility] Start: 1961 Hepatitis C screening Hepatitis C sc alonzo [place], [place] Start: 1961 Screening for malign ant neoplasm of colon [facility] EKG 12 Lead - Chest Pain EKG 12 Lead - Chest Pain ECG STAT 09/10/2020 4:45 PM EST [place] O[place] [place] Initiate Oxygen Therapy Protocol Respiratory Care Routine Daily until discontinued starting 09/10/2020 [place] Comment on above: Daily until disconti nued starting 09/10/2020 Surgical Pathology Surgical Path ology Lab Routine Release Upon Ordering for 1 Occurrences starting 09/11/2020 [place] Comment on above: Release Upon Orderin g for 1 Occurrences starting 09/11/2020 Payers Date Payer Category Payer Unknown BCBS [id number] 2015-Present [phone] [address] [place] [address] [id number] 1961 Unknown [id number] 1961 Unknown [id number] 1961 Unknown [id number] 1961 Unknown [id number] 1961 Unknown [id number] 1961 Unknown [id number] 1961 Unknown [id number] 1961 Unknown [id number] 1961 Unknown [id number] 1959 Unknown [id number] Social History Date Type Detail Facility Start: 09-11-2020 Tobacco smoking stat [facility] Former smoker [place], [place] History of tobacco use Cigarette Smoker [place] Start: 09-11-2020 End: 08-25-2023 Cigarettes smoked current (pack per day) - Reported [facility] Start: 09-11-2020 Tobacco use and exposure Never used [place] Start: 09-11-2020 Alcohol intake Lifetime non-d shobha (finding) [place] Start: 09-10-2020 History SDOH Alcohol Frequency 1 [place] Start: 1960 Sex Assigned At Not on file [place] Exposure to SARS-CoV -2 (event) Not sure [place] Tobacco smoking status No Smokin g Status Entered [facility] Start: 08-25-2023 End: 10-05-2023 Sex Assigned At Female [facility] Start: 08-25-2023 Tobacco smoking stat [facility] Smokes tobacco daily [facility] Start: 10-05-2023 Alcohol intake Current drinke r of alcohol (finding) [facility] Within the last year , have you been afraid of your partner or ex-partner? No [facility] Do you belong to any clubs or organizations such as bahai groups, unions, fraternal or athletic groups, or [...] care, and heating Not hard at all [facility] Do you feel stress - tense, restless, nervous, or anxious, or unable to sleep at night because your mind is troubled all the time - these days [OSQ] Not at all [facility] (I/We) worried wheth er (my/our) food would run out before (I/we) got money to buy more. Never true [facility] Start: 08-25-2023 Tobacco Comment 10-19 cigarettes/day [facility] Start: 08-25-2023 Alcohol Comment 1-2 drinks mon thly or less, caffeine 1-2 cups per day [facility] Evaluation + Plan note Note Date & Type Note Facility Evaluation + Plan note No data available for this section [facility] Evaluation note Note Date & Type Note Facility Evaluation note Diagnosis Mixed hyperlipidemia (CMS/HCC)- Primary Mixed hyperlipidemia documented in this encounter [facility] Hospital Discharge instructions Note Date & Type Note Facility Hospital Discharge instructions No data available for this section [facility] Progress note Note Date & Type Note Facility Progress note No data available for this section [facility] Discharge Instructions * Instructions* Magdaleno [...] your physician 11) Call your doctor at [phone] for an appointment (or follow up as [...] call OFFICE. The 24- hour phone is [phone] 13) If you are unable to contact [...] Agents on File Name Relationship Healthcare Agent [facility] Manuel Dunne Spouse Primary Decision [...] Weakness of right leg Magdaleno Rios MD [address], [address] [place] [address] [facility] Ordered Prescriptions (unrec ognized section and content) [...] section and content) DATE CREATED AUTHOR 09/13/2020 [facility] DATE CREATED AUTHOR AUTHOR'S ORGANIZ ATION 10/21/2021 [facility] dical Specialist DATE CREATED AUTHOR AUTHOR'S ORGANIZ ATION 06/02/2022 [facility] DATE CREATED AUTHOR AUTHOR'S ORGANIZ ATION 09/12/2022 [facility] DATE CREATED AUTHOR AUTHOR'S ORGANIZ ATION 11/30/2023 [facility] dical Specialists EPIC Care Team (unrecognized sect ion and content) [employer] Insurance Agent Relationship Specialty Start Date End Date Jose Powers MD PCP - General Family Medicine 08/18/23 Mela Daily NP [address] [place] [address] Nurse Practitioner Family Medicine 08/18/23 FOR RECORDS [...] BE BASED ON THE PRIMARY CLINICAL RECORDS. [facility]. provides no warranty or guarantee of the accuracy or completeness of information in this document.
== END 2023-12-31 10:53 | disposition home or self-care (01) ==
LOC: PST 10:53
PROVIDERS: PCP Nurse Practitioner; Visit Provider Surgery
DX: Z01.818 Encounter for other preprocedural examination (principal); Z12.11 Encounter for screening for malignant neoplasm of colon

== ENCOUNTER 2024-01-03 15:38 | Emergency (ER) | payer BC, SELFPAY ==
[2024-01-03] VITALS (18 sets, daily range): BP systolic 154–210; BP diastolic 92–136; PULSE 62–74; TEMP 36.6; O2SAT 91–98; BMI 30.9
--- OUTSIDE RECORDS SUMMARY | 2024-01-03 15:47 | XMS_ITS | CCD ---
Author Organization [facility] Care Team Providers Care Food Stand Manager Name Role Phone House, Sr Evan Lu [...] JOSE MIGUEL, DR MARADIAGA Primary Care Unavailable FREEPORT, DR MARADIAGA Consulting Unavailable FREEPORT, DR MARADIAGA Attending Unavailable FREEPORT, DR MARADIAGA Primary Care Unavailable FREEPORT, DR MARADIAGA Consulting Unavailable FREEPORT, DR MARADIAGA Attending Unavailable JOSE MIGUEL, DR MARADIAGA Admitting Unavailable JOSELITO, DR JOSH Saenz Consulting Unavailable Jose Powers MD Primary Care Provider [phone] [place] SENIOR STATISTICIAN, Mela Unavailable MELA DAILY Attending Unavailable ZAIDA [...] (PF) injection 2 mg polyethylene glycol 3350 [id number] mg powder for oral solution (1 source) [...] daily 0 09/10/2020 Discontinued (Therapy completed) sennosides, halfway 8.6 mg oral tablet (1 source) Start: [...] : DR EVAN GILLESPIE DAdams Admission #: [id number] Family : Order #: [id number] CLICK HERE TO VIEW EXAM RADIOLOGY REPORT PROCEDURE: MAMMOGRAM SCREENING 3D BILATERAL CAD COMPARISON: MAMMO ANGELICA SCREEN, 07/08/2013. MAMMO ANGELICA SCREEN, 01/08/2009. INDICATIONS: Screening mammography Calculator Name NCI Breast Cancer Risk Assessment Tool 5 Year Breast Cancer Risk Not Reported. Lifetime Breast Cancer Risk Not Reported. Personal Breast Cancer No Personal Ovarian Cancer No Treatments None Family Cancers None LOCATION: [facility] BREAST COMPOSITION: Scattered areas fibroglandular density. FINDINGS: [...] M.D. on 09/08/2022 at 13:34 Normal [facility] Coding Summary.on 06-02-2022 Coding Summary. [id number] G h0bWw+PGhlYWQ+KH3QWRR wL77hiRAatS9VX8zJXB1Y TQSKESEDOF9QIG7qdSD6W SdfC3WbgeAq EenbaKVqUC87UDs3ITW1l LggQIipxT6paWXbD9k2Nr NrQP72aZ82ZDywBNUxNyC 3LjZpbjsgbWFy A6ayUeWmoGWiMyd+PHRhY mxlIHdpZHRoPScxMDAlJy HntOpyFH1oNq9yQZZgWUY vbGxhcHNlOiBj f6eaMCGqTGpmTC3neGksB 7YktBP5WHCpr8o2Id74fZ I+MHYyFLB0vNlhWAgto55 4OsWro9ciHYB3 sNYfLHweLLC7N32ds3K7H DZdPNGcEQW8lEE2jH8qeG ffwfylS5XftOShBmL8RBL 8ySDkfY8hhMxm zhkusB9cIsk+Y70LZH6NL FVOHC8TOxx2H6UaZldtbI I+IV83BAByPL28qJZrfCK um9auaNs1RgOc TEWfQMS3nXbfUNvis1MhS RGgT81mmFJxm8Y9WQNxgS rcuXIePmBreBX3kW1tBPy apyvja8gqeaeh Cqeya3rdke24wD56Q37iU TvpWSHdHDP8DGYmXMSjmJ bvda0rqI5eDm7+VKxqu1p xj6ykhTw4ZiZl SFFfiaKfaUihZXQ6v8WeJ h66T2FgvIhrj1WeVbt0up 77wOUtw5Q5qXJ3XDmqVQR xyB9cQPdxYhK0 YZKbEtDomC45uFLtHFucL r8zbRgwgAkmUJ5bCPCdvt keDFJfkI0eCMYnkYLqpFj zNE6aKXJzreuz v814OhPwOEW7MTJbnKTfS 3XvnD9sLmFqTGTmWBRxJ8 LhlVKlPPcyR902EWjjDxI 8FIZinmUeF1Zy TRCosLbjFvS9q1T5An5Nh 6PwrrnrXWN6WAepSVD3Rr PrCbFwZiG4O1GfGcn7MEU otNrpUV1jE5Tn OPHhotaidkfxgMR0RCRqP VWzcR35cBGvEIjeVj3zx9 Y9s866XSIlJQXvtY82La5 udDogMTBwdCBU fQ3vbbxaz8bxhntvCyWkR MBvKYj9EUc2YSLbdFilHm CoCHN7DpT4KKY9bOTirZ2 yoYmxclhhoA4n Oyc+N71hoJ8dRWU4BKM2b aulZLJnetWfRB06FF29X9 RyPjwvdGFibGU+PGRpdiB qcZxbNP8vJuBq n5rur7IpRHffL8LgNHBvT QhwDbd2QUEpGJD5jPW6oX 4wJNShLImty7E1hLU3N2G wrzHyzz7un8rm ILSjIFahY27jnQPuv0P6P FIofTG5RAXkkNuxBdByiG 93Oyc+USEruXudk5UcCuq zt7lnk1pbpUx8 ZwOfGYKbgbJujTiuQUN3o 9SmZh93W02nMAbdTAZwRE FyIQKwYKKpaAdvwa4khM9 wIi8+PGNvbCB3 tUK3oK5jRTFmSsL8OJjuW 839AgIhbRYtZzqlj5yri3 gonTf1BzIvXDTqhgOkzKw tJIK7m9MvEx10 O32lITrnNCLpBYGsIHMxF ATbdWcwgj7gyL1aJs8+PC 2ak9dyma73mV17qZU+PHR wNGV3cIxjJLhe OXMelC4eDNijFeJ1ZPQwE vOoyE16bWHaBCxiKx5psN ydvItqAK8yFUCngpddq79 5YgDae5aiNXGy cNEgDIqeWTQ4E79vc3S7V YEsOTCdLUD6hBV5pB7mkY lnbjogbGVmdDsgdmVydGl pVIgbIXsfM722 IHRvcDsnPlBhdGllbnQgT hMtXYh5A0KfBgu7BXPerT rqTV6obLWuYSenSq1piVn zpUlmLI2mCNEr qyhsi277FbYaj7xbJUSkm UTgNQpnAKZ2F91nw3G8PP ScZDAqLTG0hQS1cT3aeFo nbjogbGVmdDsg udKenJfzJCxsXXzdM921F HRvcDsnPkJpcnRoIERhdG H4ED11SO16vOSjs7C0xCU 3F0ThIIAryzmx ovzmrKY9EZHaQHQksS15J u7hdYpbUq0hDHUcIEZ9TL RjvDRiV6JphQ2fNsPzTFQ uNPUiH5IsoCMj HDgnZ025QApfYkG7FWFiw vSlA9JkXZNjlRhiIaK5u5 T0Is7IW3N8LA83ZI05yMW bw3O5eTM9A4Ww WWNtwcnwvwrtpNF4VKPhD BAfkR44Oe5coKogSv9uNJ JmPGW7EZHmvKLyB7YerP8 yOiAjMDAwMDAw Z9EraZAlEXfeT925BJshS qF1FKNgluHoR6VcJAIscK hsDvX5d3J7Bi5BDQx1UG8 6YX67nWKiz2O1 kPN2O2TzIRJnnojhaljtl UQ4BSFlBNSguJ40Rq0bcW tyMy0pCTDfASQ5KFZnoKW jJ8HlgA1mKdPm QCKkIHJeN1AonYMgEAirU 967UTiaNcL4GSPkztZeM1 NvMESmcWwoNwN8q3C6Lz3 SUZRcWS65OGP8 eML5YU33HN85T3RcNrukj GFibGU+PHRhYmxlIHdpZH RoPScxMDAlJyBzdHlsZT0 rZo2yUCUbKVIx iQzfgPZkAcSsx8inEICgU IhfVU6jkJnqN2HdwCE7ZB Ywu0p7Nv61A00qV9CgaIK +DFBlaTP5uBV3 aF4nXkYaLqN0PGjjV849I uVlsQZuZqfsf4zjk6wibI a0FgB5OSCeglHoeLlmZSA 0s3OuOn18W10l IHdpZHRoPSIxNSUiIHZhb Mtapf1gtR4jOl3+PGNvbC C8nRF7yI5rMrWhVrF0TUs hM216TyAgjBSx Eienf3qwt1rfhVn0JwRtF LIumzTooZqgUGB7e4GxIq 68N5HemFljl5NtRft3jt7 5hORxs9D2xGO8 V6MsMFGlsqqmcDHkqXlcJ F7lNUQtmjfpPJWzeX9cXK DfR0u0ZkTcXjH1RZecB7P izoE5JBObkVHw PRvyBMG1F61mp4R9NAJkB QEhVGS1yDR6tX8mqViftk ogbGVmdDsgdmVydGljYWw oTJjzE782CQIi wVfgHYFkjT8kIXCfrESkl YulIR9ePJGqbiwcSn8DA3 JFLCBMVUNSRVRJQSBNPC9 8TD49aVBgi6O0 gUJ3X7SrMWAmypqbrcnau SX2YDNqHCZciE98nOBrOV vzKo4km4J9k857TZSvNUZ pnQ03Gm6ioAtq KHAzrLMPpQ8ujofzj7ekr gmpDyNtDZTsUBk2WIq2MQ GkbRqzOtCsPIL6MeJ9HML 7zCRrtL8yvJct dfnadP7yAxf+MDkvMTEvM Qg0KAkxvGG+DTQrOXI4yH meYQqnQYWmsE3aZNQfQ7n 4KmLmXgW5HEwf H4RwMAMpjptlYg81oF1gL wNfBzD4ICxxO7WqzeY0TE AusZUpGUqoCII7S94oz0V 4MRMcNEYdSDW4 qIX2pY9fgYiwxpmreWAvg DsgdmVydGljYWwtYWxpZ2 46IHRvcDsnPjYxIFllYXJ dMA35WP11tDAs t1Q8cIG6J6ZoXNNkmfqfx nipmCU0UJReQIMwkI90yL EzXVqpOz8yz5B6t707SEQ lKQIimS54Pg1p tOjyQLLwiGMElV6ubhgwi 1veaogkOuFjWAQtBDd1MJ y2QGKjcQmmJcMpWSW7YwB 0KNU1sDOhoO0p aIzraqgsdC8hSww+RmVtY LdlBY18XY45fXAxj8H7sQ D4S3HvPOGxkzhcvrbcoME 2SSQrGOMyqX37 zNQhHGjyCd8zg6U5i421S TGdAJHjvF17Xz0onEmeWD PlrXCRaO8gzyfvl5ytoal gIzAwMDAwMDt0 PJj3BJHtoTfyLgVmXBC4T rT7CGT8dPUppT8yfWfghk qglA4xOhx+F9T3vAH2xCO udDwvdGQ+PC90 wj69X1MbMhvuTfk2POJyR IZ4xEY3zN4nGRXbAAgil3 C5uSM6J8QazzMjvh7ng8s gTZXrUOdrT68v zWTsr2K4YIMfuGS0VAWwe DasUaFnhI76Mxt+PGNvbG bwf0VaJbydl9ohi1praZi 9IjMwJSIgdmFs vVssFOX7l3CsZt12T67uU HdpZHRoPSIzMCUiIHZhbG nudb4qnF5dFf0+PGNvbCB 7mFN8vY5iQlVz OmK6QUlyF997PuGgnTOqU sjll1ozu4lsjLn8UzJkGD QaidSeeAffPDD6b9CvOv4 4Q8EpeBsib5Kn Zml6hc88aRQbq5A1qBW1U 3BhZGRpbmctbGVmdDogMC 6uGMXadmrdGJRkfD2rCLP uB3w4OrDtFhF5 PAcuW2AltrN5KMBgiYFjL RWmeMMSaE8mhndhr9cnmm dbTxJtDBSyBDb0BVf5GWK saWduOiBsZWZ0 NuP6LVG5iTIheL2beYnjd qrgmS9gEbz+VCc4u6dmgQ NwXR3omJA1BQ73CH94nML it0I5aTL3H1Wt IJIdbkfnazpwbKF1KJKwM SSjzJ84Al4qmFwiOn2gML NxBJN6AAZrhZIpQ4PmcU1 yOiAjMDAwMDAw J1PhxQUhHMjqW470HZdbR iF1UAFiyvUcE0EhGZMqoO woDlK5h1O1Ix5HXN78YA1 5ME48xCDgu6J7 xEV7V9XdNTXtlrqkhlqsn OT4KBRxMAWbxE59Aq9azG wkEc2cFEGeUYI6EITjmCS vZ0YvfF9wMkEh QRHpVTCvZ9VnfMOcBKagT 653EBquSkX6VUBfkkBhN0 SgMXSflYogJfW2w6L9Gr5 ZRc48TZ84ZV87 fQPsu0R2cNS0B2AjCTBlt qgbrwnyjRO7AJDcMSWbwS 57Gi2dzFdqEf4yQSXcXUD 5BCXmoXCbF4Qv lI7gOeHxFLIzVDTzF1Cud JJwPQphS278OHumFeA3MM NbchZkA0VfZNVxmRvdVhX 0c3L1Ua9HOQgg dnr9X1GwOnyeaOR+PC90Y KBaKZ59yJNgeXYir4zkoH q6DuCdPSUvARE3lObwKXf ps1SnTTZdQ01k bGFw (more content not included)... Normal [facility] Auto Diffon 09-09-2022 Basophils/100 WBC (Bld) 0.6 % Normal 0.0-2.0 [facility] Comment on above: Order Comment: Order Added by Discern Expert. Performed By: #### 7 [id number], [id number], 8254309, 3265960, [id number] #### [facility] [address] [place] [address] 14758 Basophils/Leukocytes Auto (Bld) [Pure # fraction] 0.0 E9/L Normal 0.0-0.2 [facility] Comment on above: Order Comment: Order Added by Discern Expert. Performed By: #### 7 [id number], [id number], 7411475, [id number], [id number] #### [facility] [address] [place] [address] 88268 Eosinophils/100 WBC (Bld) 1.3 % Normal 0.0-8.0 [facility] Comment on above: Order Comment: Order Added by Discern Expert. Performed By: #### 7 [id number], 9373097, 8904880, 8628612, [id number] #### [facility] [address] [place] [address] 00648 Eosinophils/Leukocyte s Auto (Bld) [Pure # fraction] 0.1 E9/L Normal 0.0-0.5 [facility] Comment on above: Order Comment: Order Added by Discern Expert. Performed By: #### 7 [id number], 7323935, 2696572, 1223306, [id number] #### [facility] [address] [place] [address] 05211 Lymphocytes/100 WBC (Bld) 32.4 % Normal 14.0-50.0 [facility] Comment on above: Order Comment: Order Added by Discern Expert. Performed By: #### 7 [id number], 2288049, 7081103, 1647200, [id number] #### [facility] [address] [place] [address] 85069 Lymphocytes/Leukocyte s Auto (Bld) [Pure # fraction] 2.1 E9/L Normal 1.0-4.0 [facility] Comment on above: Order Comment: Order Added by Discern Expert. Performed By: #### 7 [id number], 0693269, 9720207, 7079086, [id number] #### [facility] [address] [place] [address] Monocytes/100 WBC (Bld) 7.6 % Normal 4.0-14.0 [facility] Comment on above: Order Comment: Order Added by Discern Expert. Performed By: #### 7 [id number], 3666898, 6727679, 0879186, [id number] #### [facility] [address] [place] [address] 79796 Monocytes/Leukocytes Auto (Bld) [Pure # fraction] 0.5 E9/L Normal 0.2-1.0 [facility] Comment on above: Order Comment: Order Added by Yosvany Expert. Performed By: #### 7 [id number], 6177019, 1020022, 3753385, [id number] #### [facility] [address] [place] [address] 77652 Neutrophils/100 WBC (Bld) 58.1 % Normal 36.0-75.0 [facility] Comment on above: Order Comment: Order Added by Yosvany Expert. Performed By: #### 7 [id number], 3324264, 8522760, 5238933, 10938562 #### [facility] [address] [place] [address] 78150 Neutrophils/Leukocyte s Auto (Bld) [Pure # fraction] 3.7 E9/L Normal 2.0-7.5 [facility] Comment on above: Order Comment: Order Added by Yosvany Expert. Performed By: #### 7 [id number], 4404434, 4917723, 6928823, [id number] #### [facility] [address] [place] [address] 94862 BMPon 05-30-2022 Anion gap [Moles/Vol] 11 mmol/L Normal 6-16 [facility] Comment on above: Performed By: #### 7 [id number], 6428866, 4491251, 6302484, [id number] #### [facility] [address] [place] [address] Calcium [Mass/Vol] 9.1 mg/dL Normal 8.9-11.1 [facility] Comment on above: Performed By: #### 7 [id number], 2911739, 4407206, 3700602, 34307270 #### [facility] [address] [place] [address] Chloride [Moles/Vol] 102 mmol/L Normal 101-111 [facility] Comment on above: Performed By: #### 7 [id number], 0418944, 4723684, 8404292, 75178423 #### [facility] [address] [place] [address] CO2 [Moles/Vol] 28 mmol/L Normal 21-31 [facility] Comment on above: Performed By: #### 7 [id number], 8264862, 7445874, 3484792, 35564522 #### [facility] [address] [place] [address] Creatinine [Mass/Vol] 0.7 mg/dL Normal 0.5-1.3 [facility] Comment on above: Performed By: #### 7 [id number], 9612754, 0182886, 0866251, 07637541 #### [facility] [address] [place] [address] Glucose [Mass/Vol] 115 mg/dL Normal 55-199 [facility] Comment on above: Result Comment: If t his glucose result represents a fasting glucose, interpretation should refer to the following reference range: 55-99 mg/dL Performed By: #### 7 [id number], 1759399, 3295209, 1624901, [id number] #### [facility] [address] [place] [address] Potassium [Moles/Vol] 4.1 mmol/L Normal 3.5-5.3 [facility] Comment on above: Performed By: #### 7 [id number], 6493233, 7554980, 8614085, [id number] #### [facility] [address] [place] [address] Sodium [Moles/Vol] 137 mmol/L Normal 135-145 [facility] Comment on above: Performed By: #### 7 [id number], 4745525, 7281406, 0243400, 02559005 #### [facility] [address] [place] [address] Urea nitrogen [Mass/Vol] 14 mg/dL Normal 5-21 [facility] Comment on above: Performed By: #### 7 [id number], 9790472, 5893453, 3996490, 02325281 #### [facility] [address] [id number] Urea nitrogen/Creatinine [Mass ratio] 20 No Units Normal 10-20 [facility] Comment on above: Performed By: #### 7 [id number], 0621603, 1875345, 4823646, 78192599 #### [facility] [address] [place] [address] 57561 CBC w/ Auto Diffon Erythrocyte distribution width (RBC) [Ratio] 13.7 % Normal 10.9-14.2 [facility] Comment on above: Performed By: #### 7 [id number], 6349975, 4023936, 2194236, 65767653 #### [facility] [address] [place] [address] Hematocrit (Bld) [Volume fraction] 41.6 % Normal 34.0-46.0 [facility] Comment on above: Performed By: #### 7 [id number], 5374553, 5895131, 3452471, 92925035 #### [facility] [address] [place] [address] 10097 Hemoglobin (Bld) [Mass/Vol] 14.7 g/dL Normal 12.0-16.0 [facility] Comment on above: Performed By: #### 7 [id number], 3880983, 8955542, 4264789, 19103139 #### [facility] [address] [place] [address] MCH (RBC) [Entitic mass] 32.5 pg Normal 27.0-34.0 [facility] Comment on above: Performed By: #### 7 [id number], 2014366, 3042512, 4988866, 71355081 #### [facility] [address] [place] [address] MCHC (RBC) [Mass/Vol] 35.4 g/dL Normal 31.4-36.0 [facility] Comment on above: Performed By: #### 7 [id number], 3991704, 5128194, 2311201, 53552751 #### [facility] [address] [place] [address] 51101 MCV (RBC) [Entitic vol] 91.8 fL Normal 80.0-100.0 [facility] Comment on above: Performed By: #### 7 [id number], 1033441, 2877579, 0556153, 12608529 #### [facility] [address] [place] [address] 06058 Platelet mean volume (Bld) [Entitic vol] 9.3 fL Normal 6.4-10.8 [facility] Comment on above: Performed By: #### 7 [id number], 3809041, 1005445, 6829100, 35013133 #### [facility] [address] [place] [address] 95764 Platelets (Bld) [#/Vol] 181.0 E9/L Normal 150.0-500.0 [facility] Comment on above: Performed By: #### 7 [id number], 4266864, 9571720, 9517942, 23184535 #### [facility] [address] [place] [address] 39035 RBC (Bld) [#/Vol] 4.5 E12/L Normal 4.3-5.9 [facility] Comment on above: Performed By: #### 7 [id number], 4265161, 8208518, 4145771, 85230300 #### [facility] [address] [place] [address] WBC corrected for nucl RBC Auto (Bld) [#/Vol] 6.4 E9/L Normal 4.0-11.0 [facility] Comment on above: Performed By: #### 7 [id number], 5170869, 4249565, 9013849, 13615396 #### [facility] [address] [place] [address] CHEMISTRYOrdered By: [email or web address] / [employer] SYSTEM on 05-30-2022 Anion gap [Moles/Vol] 11 [...] rate/Area] mL/min/1.73 m2 Normal >=59mL/min/1. 73 m2 [facility] Chem S Glucose [Mass/Vol] 115 mg/dL Normal [...] (Bld) [Mass fraction] 6.2 % High <=5.9% [facility] ChemAutoSS Consent for Treatmenton Consent for Treatment [id number] .[id number]:127 Normal [facility] HEMATOLOGYOrdered By: SYSTEM SYSTEM on 05-30-2022 [...] Normal 4.0 - 11.0 E9/L FT HemeAutoSS [id number] 05-30-2022 HbA1c (Bld) [Mass fraction] 6.2 % High <=5.9 [facility] Comment on above: Performed By: #### 7 [id number], 6058240, 3127635, 1279071, 78103799 #### [facility] [address] [place] [address] XR Chest 2 Viewson 2 XR Chest [...] M.D. Transcribed by: JODEE Technologist: HALEY Normal [facility] eGFRon 05-30-2022 GFR/1.73 sq M.predicted among blacks MDRD (S/P/Bld) [Vol rate/Area] mL/min/{1.73_m2} Normal >=59 [facility] Comment on above: Order Comment: Order added by Discern Expert. Result Comment: eGFR is race adjusted. AA=. Performed By: #### 7 [id number], 7777747, 5029724, 6877914, 11635301 #### [facility] [address] [place] [address] GFR/1.73 sq M.predicted among non-blacks MDRD (S/P/Bld) [Vol rate/Area] mL/min/{1.73_m2} Normal >=59 [facility] Comment on above: Order Comment: Order added by Discern Expert. Result Comment: Pilot Boat Operator arnulfo kidney disease could be indicated at eGFR's of less than 60 mL/min/1.73m2. Kidney failure is indicated at less than 15 mL/min/1.73m2. Performed By: #### 7 [id number], 9186055, 3335124, 0208973, [id number] #### [facility] [address] [place] [address] Physician Orderon 05-08-2022 Physician Order [id number] .[id number]:127 Normal [facility] CBC AUTO DIFFon 11-11-2021 BASO # 0.0 103/ul Normal 0.0-0.1 [facility] Comment on above: Performed By: #### C BC #### [facility] [address] [place] [address] Dr. Farhat Mcneil Basophils/100 WBC (Bld) 0.6 % Normal 0.2-2.0 [facility] Comment on above: Performed By: #### C BC #### [facility] [address] [place] [address] Dr. Farhat Mcneil EO # 0.1 103/ul Normal 0.0-0.7 [facility] Comment on above: Performed By: #### C BC #### [facility] [address] [place] [address] Dr. Farhat Mcneil Eosinophils/100 WBC (Bld) 1.1 % Normal 0.9-7.0 [facility] Comment on above: Performed By: #### C BC #### [facility] [address] [place] [address] Dr. Farhat Mcneil Erythrocyte distribution width (RBC) [Ratio] 12.3 % Normal 11.0-15.0 [facility] Comment on above: Performed By: #### C BC #### [facility] [address] [place] [address] Dr. Farhat Mcneil Hematocrit (Bld) [Volume fraction] 43.6 % Normal 36.0-48.0 [facility] Comment on above: Performed By: #### C BC #### [facility] [address] [place] [address] Dr. Farhat Mcneil Hemoglobin (Bld) [Mass/Vol] 15.0 g/dL Normal 12.0-16.0 [facility] Comment on above: Performed By: #### C BC #### [facility] [address] [place] [address] Dr. Farhat Mcneil IG # 0.02 10e3/ul Normal 0.00-0.03 [facility] Comment on above: Performed By: #### C BC #### [facility] [address] [place] [address] Dr. Farhat Mcneil IG % 0.3 % Normal 0.0-0.5 [facility] Comment on above: Performed By: #### C BC #### [facility] [address] [place] [address] Dr. Farhat Mcneil LYMPH # 2.2 103/ul Normal 1.2-3.8 [facility] Comment on above: Performed By: #### C BC #### [facility] [address] [place] [address] Dr. Farhat Mcneil Lymphocytes/100 WBC (Bld) 31.0 % Normal 20.5-60.0 [facility] Comment on above: Performed By: #### C BC #### [facility] [address] [place] [address] Dr. Farhat Mcneil MANUAL DIFF REQ NO Normal [facility] Comment on above: Performed By: #### C BC #### [facility] [address] [address] [address] Farhat Mcneil MCH (RBC) [Entitic mass] 31.5 pg Normal 26.7-34.0 [facility] Comment on above: Performed By: #### C BC #### [facility] [address] [place] [address] Dr. Farhat Mcneil MCHC (RBC) [Mass/Vol] 34.4 g/dL Normal 29.9-35.2 [facility] Comment on above: Performed By: #### C BC #### [facility] [address] [place] [address] Dr. Farhat Mcneil MCV (RBC) [Entitic vol] 91.6 fL Normal 81.0-99.0 [facility] Comment on above: Performed By: #### C BC #### [facility] [address] [place] [address] Dr. Farhat Mcneil MONO # 0.5 103/ul Normal 0.3-0.8 [facility] Comment on above: Performed By: #### C BC #### [facility] [address] [place] [address] Dr. Farhat Mcneil Monocytes/100 WBC (Bld) 6.3 % Normal 1.7-12.0 [facility] Comment on above: Performed By: #### C BC #### [facility] [address] [place] [address] Dr. Farhat Mcneil NEUT # 4.3 103/ul Normal 1.4-6.5 [facility] Comment on above: Performed By: #### C BC #### [facility] [address] [place] [address] Dr. Farhat Mcneil Neutrophils/100 WBC (Bld) 60.7 % Normal 43.0-75.0 [facility] Comment on above: Performed By: #### C BC #### [facility] [address] [place] [address] Dr. Farhat Mcneil Platelet mean volume (Bld) [Entitic vol] 10.6 fL Normal 9.5-13.5 [facility] Comment on above: Performed By: #### C BC #### [facility] [address] [address] [address] Farhat Mcneil PLT 187 103/ul Normal 150-450 [facility] Comment on above: Performed By: #### C BC #### [facility] [address] [address] [address] Farhat Mcneil RBC 4.76 106/ul Normal 4.20-5.40 [facility] Comment on above: Performed By: #### C BC #### [facility] [address] [address] [address] Farhat Mcneil WBC 7.1 103/ul Normal 4.0-11.0 [facility] Comment on above: Performed By: #### C BC #### [facility] [address] [place] [address] Dr. Farhat Mcneil LIPID PROFILEon 11-11-2021 CHOL-HDL RATIO NORM SEE BELOW Normal [facility] Comment on above: Result Comment: 3.3 - 4.4 LOW RISK 4.4 - 7.1 AVERAGE RISK 7.1 - 11.0 MODERATE RISK >11.0 HIGH RISK Performed By: #### L IPID, T4, CMP, TSH #### [facility] [address] [place] [address] Dr. Farhat Mcneil Cholesterol [Mass/Vol] 286 mg/dL Critically high <=200 [facility] Comment on above: Performed By: #### L IPID, T4, CMP, TSH #### [facility] [address] [place] [address] Dr. Farhat Mcneil Cholesterol in HDL [Mass/Vol] 44 mg/dL Normal [facility] Comment on above: Performed By: #### L IPID, T4, CMP, TSH #### [facility] [address] [place] [address] Dr. Farhat Mcneil Cholesterol in LDL [Mass/Vol] 187.2 mg/dL Normal [facility] Comment on above: Performed By: #### L IPID, T4, CMP, TSH #### [facility] [address] [address] [address] Farhat Mcneil Cholesterol.total/Cho lesterol in HDL [Mass ratio] 6.5 {ratio} Normal [facility] Comment on above: Performed By: #### L IPID, T4, CMP, TSH #### [facility] [address] [address] [address] Farhat Mcneil HDL NORMAL > or = 60 mg/dl - LO W CARDIOVASCULAR RISK <40 mg/dl - HIGH CARDIOVASCULAR RISK Normal [facility] Comment on above: Performed By: #### L IPID, T4, CMP, TSH #### [facility] [address] [address] [address] Farhat Mnceil LDL CALC NORMAL SEE BELOW Normal [facility] [facility] Comment on above: Result Comment: <100 mg/dl OPTIMAL 100 - 129 mg/dl NEAR OR ABOVE OPTIMAL 130 - 159 mg/dl BORDERLINE HIGH 160 - 189 mg/dl HIGH >190 mg/dl VERY HIGH Performed By: #### L IPID, T4, CMP, TSH #### [facility] [address] [address] [address] Farhat Mcneil Triglyceride [Mass/Vol] 274 mg/dL Critically high <=150 [facility] Comment on above: Performed By: #### L IPID, T4, CMP, TSH #### [facility] [address] [address] [address] Farhat Mcneil VLDL CALC 54.8 mg/dL Normal [facility] Comment on above: Performed By: #### L IPID, T4, CMP, TSH #### [facility] [address] [address] [address] Farhat Mcneil PROF 14(COMP METB)on 022 Albumin [Mass/Vol] 3.8 g/dL Normal 3.5-5.0 [facility] [place] [facility] Comment on above: Performed By: #### L IPID, T4, CMP, TSH #### [facility] [address] [address] [address] Farhat Mcneil Albumin/Globulin [Mass ratio] 1.0 {ratio} Normal [facility] Comment on above: Performed By: #### L IPID, T4, CMP, TSH #### [facility] [address] [address] [address] Farhat Mcneil ALP [Catalytic activity/Vol] 102 U/L Normal 38-126 [facility] Comment on above: Performed By: #### L IPID, T4, CMP, TSH #### [facility] [address] [address] [address] Farhat Mcneil ALT [Catalytic activity/Vol] 46 U/L Normal 9-52 [facility] Comment on above: Performed By: #### L IPID, T4, CMP, TSH #### [facility] [address] [address] [address] Farhat Mcneil Anion gap [Moles/Vol] 9.2 mmol/L Normal [facility] Comment on above: Performed By: #### L IPID, T4, CMP, TSH #### [facility] [address] [place] [address] Dr. Farhat Mcneil AST [Catalytic activity/Vol] 21 U/L Normal 14-36 [facility] Comment on above: Performed By: #### L IPID, T4, CMP, TSH #### [facility] [address] [place] [address] Dr. Farhat Mcneil Bilirubin [Mass/Vol] 0.3 mg/dL Normal 0.2-1.3 [facility] Comment on above: Performed By: #### L IPID, T4, CMP, TSH #### [facility] [address] [address] [address] Farhat Mcneil Calcium [Mass/Vol] 9.0 mg/dL Normal 8.4-10.2 [facility] [place] [facility] Comment on above: Performed By: #### L IPID, T4, CMP, TSH #### [facility] [address] [address] [address] Farhat Mcneil Chloride [Moles/Vol] 103 mmol/L Normal 98-107 [facility] Comment on above: Performed By: #### L IPID, T4, CMP, TSH #### [facility] [address] [address] [address] Farhat Mcneil CO2 [Moles/Vol] 30.7 mmol/L Critically high 22.0-30.0 [facility] Comment on above: Performed By: #### L IPID, T4, CMP, TSH #### [facility] [address] [address] [address] Farhat Mcneil Creatinine [Mass/Vol] 0.75 mg/dL Normal 0.52-1.04 [facility] Comment on above: Performed By: #### L IPID, T4, CMP, TSH #### [facility] [address] [place] [address] Dr. Farhat Mcneil EGFR-AF PALESTINIAN >60 Normal >=60 [facility] Comment on above: Performed By: #### L IPID, T4, CMP, TSH #### [facility] [address] [place] [address] Dr. Farhat Mcneil EGFR-NON AF PALESTINIAN >60 Normal >=60 [facility] Comment on above: Performed By: #### L IPID, T4, CMP, TSH #### [facility] [address] [place] [address] Dr. Farhat Mcneil Globulin (S) [Mass/Vol] 3.7 g/dL Normal [facility] Comment on above: Performed By: #### L IPID, T4, CMP, TSH #### [facility] [address] [place] [address] Dr. Farhat Mcneil Glucose [Mass/Vol] 126 mg/dL Critically high 74-106 [facility] Comment on above: Performed By: #### L IPID, T4, CMP, TSH #### [facility] [address] [place] [address] Dr. Farhat Mcneil Potassium [Moles/Vol] 3.9 mmol/L Normal 3.4-5.0 [facility] Comment on above: Performed By: #### L IPID, T4, CMP, TSH #### [facility] [address] [place] [address] Dr. Farhat Mcneil Protein [Mass/Vol] 7.5 g/dL Normal 6.1-8.2 [facility] [place] [facility] Comment on above: Performed By: #### L IPID, T4, CMP, TSH #### [facility] [address] [place] [address] Dr. Farhat Mcneil Sodium [Moles/Vol] 139 mmol/L Normal 137-145 [facility] [place] [facility] Comment on above: Performed By: #### L IPID, T4, CMP, TSH #### [facility] [address] [place] [address] Dr. Farhat Mcneil Urea nitrogen [Mass/Vol] 11.0 mg/dL Normal 7.0-17.0 [facility] Comment on above: Performed By: #### L IPID, T4, CMP, TSH #### [facility] [address] [place] [address] Dr. Farhat Mcneil Urea nitrogen/Creatinine [Mass ratio] 14.7 mg/mg Normal [facility] Comment on above: Performed By: #### L IPID, T4, CMP, TSH #### [facility] [address] [place] [address] Dr. Farhat Mcneil T4on 11-11-2021 T4 [Mass/Vol] 7.60 ug/dL Normal 5.53-11.00 [facility] Comment on above: Performed By: #### L IPID, T4, CMP, TSH #### [facility] [address] [place] [address] Dr. Farhat Mcneil TSHon 11-11-2021 TSH 2.278 uIU/mL Normal 0.470-4.680 [facility] Comment on above: Performed By: #### L IPID, T4, CMP, TSH #### [facility] [address] [place] [address] Dr. Farhat Mcneil TSH RANGE SEE BELOW Normal [facility] Comment on above: Result Comment: <0.3 4 UIU/ml HYPERTHYROID 0.34-5.60 UIU/ml EUTHYROID >5.60 UIU/ml HYPOTHYROID Performed By: #### L IPID, T4, CMP, TSH #### [facility] [address] [place] [address] Dr. Farhat Mcneil MRI Shoulder w/o + [...] on 10/21/2021 0956 Normal [facility] Coding Summary.on 10-05-2021 Coding Summary. CD:[id number] G h0bWw+PGhlYWQ+VN6QWGS mR41hhYVlcQ2XY1tAOC4D YURWGIUQYQ2RAF2usVT8Z LhlH8SeklKj TpmwnTCaVE73CTz3MUA1d XakQHvyxZ5dfXGrL3a6Ev BwOT06qB50FXhnAEBlXfK 3LjZpbjsgbWFy A4osEaYhjEFzByd+PHRhY mxlIHdpZHRoPScxMDAlJy JkxBgrQH4cHn9uRUMgBJD vbGxhcHNlOiBj k4otAWRySMtlII6mdNpmY 6CfgND7YIKgw3j7Rd36pQ I+NBQpUTO5pOoaESikv58 5NxHwf7roAPI9 sNOoJRyxURA0R08yw8U8T FIkZJIdTSY9cWP6pE4ydX btyonfF2NbfBFhUxV1ORM 7uRVagJ8neXrj xssvzL1oViv+A91IYF7YB JIRYU8KApn7O6QyTgfqcE I+XL36TOCsSJ23aNKoiBE xh0dwzXt6XqDn RTEoMKD7hSeiQTruo9XzK FCfS92ewJTnp6U5TMGilK fzpDFrRqCxgQA4wD9iRGz hszgyd5mjnkyp Ytwnq5kqhz59oF35U25rU UhmBXBqJKZ3VZIuGUSfuR ajkz6jdU2wCb1+FZder5m fy6xotZx3UfZh JCQhfnQmrMabSML2r2PpH r61Z9HtlMbha5EqMdw4ps 98bUJff6Q1xRR0PYjzNMO lhH1zBPqqTpW4 BEAyFnFelP46bEDqSUgtM o8xhTifvUpnZG9hOHQnau gcVPRpoS9sXSJajXWtzRk sDO4zOANhngcj r138KmVxYHV7PIBjwOUrU 1YonN6zEpOhSWVqVPVtE3 CbtCTmXAweW923AQmsNoC 8BLLkzkQfS5Jq BUPlsKuvTrJ7d5N4Kf0Qf 3GqrislHGB8HAgmQSAeBp Z0YrSsGiP4A4PuUyf8DII gbAptOX2fG5Gx UAVmfmftufeqqHY0DIWrF BSqbT93pBOnDVkrWz7ni7 S3t966KXOfDATkbJ27Nl8 udDogMTBwdCBU nC8srxyxx5zdrkyrNtOlW HTfPPp0RYm1ZEJhlAuvCz PvIDA1JeM0XAW1uPBwzW1 vdOfjrwhytS5v Oyc+A97xcM1eQCB3DPG0d chiDAZmymOqAF45DS76B6 RyPjwvdGFibGU+PGRpdiB mqLgqOP5gIlJq i2chx5EnNUglP7HyNADrC LtwSmv7METtWFX6sQC0gH 3gFSHuJGfvt6T4zDC5Q4P dwbGqqt5lh8vf XYWoIZyxX61brGShr8Z4U YPcxTV7PBTllFsaRqNsxO 93Oyc+BYRnbOine0RkSiu db9hhq1gjaMw8 LqQoMMVfroCfjFvaIMM3x 2UwOj44R84yESueCAZeOK DyKUKeQHUgnBkllf8dnA7 wIi8+PGNvbCB3 sOA9hJ1hHPQdKnY9RRamM 806PhYqgHAtRsurq7ivl9 wbwKy4PeVdMPZgguJtpSa jHQV5c2YhBv29 K73cYLjyGJLeFMApTHNrX JYsaKuqpx6zmG0zMf8+PC 9kh4prgm47iX83qUD+PHR uUQC3iWuiJXzk DUJfzU1cUWmkZvY0YAJwR lMuqW42pRRxJUteLf6kbI bvfNwgLI0eFQUcfvadw00 7GnWod7phUTJm bZBiRTqsNGP4X37yf5R6Q HAqAXRhXVE4kKY4eV4skD lnbjogbGVmdDsgdmVydGl sLKlcIPduH046 IHRvcDsnPlBhdGllbnQgT kUfWYc3K9RjJlg1JKEzlB rkGW8ltXQoJWxuPy6ujIg coQtkNV4oXXLi kfcei433NjHhj7ibBTJti TAyTTqaTUO4U85jt6E6HC PoEJIvVIK1bSQ1oX3ceDh nbjogbGVmdDsg ipRvvDirOSobHGjaC738Q HRvcDsnPkJpcnRoIERhdG Z4SO53AO42kTYdg8B0mNK 6Y8KwFXVyrrhg djepaWZ7AZDxVCElvQ52Y y3hkEwiTo1uNEIaBTX7JD IjoRDlR3WrvB7lIfVbKEY lOZTuA6SnjRGt WSxfD835UCscErA4OGPzp dAoS2YwVJIgcXvrHcR3t0 Y6Gl4CD6Y3TS69EX17pEB fy4N3pEF9A9De OSJzrvqxbawhxMJ7MVNrB RNhuW21Vk6vnVcmDg1nUI CjZHX8VJAwqUZpJ5QigG4 yOiAjMDAwMDAw D5NigECyAPupJ673RKcuD mK1YBBbtwTdN7YnIGAptA csGxC6e2A7Ti6QWBi7KK3 5ZM21bTTvm3Y8 cSH3O0IcLBYekkfyapkah OX1ASErFJAujG98Km1apK ysGt4qQNXgUOM7UMPlwSE cK6YzlI4qTeDe VNJwHSKoM6EgmRZqKGfpQ 918KSauUbW0CLWmxtMmD5 ScUDVzuExkTlG8j8V8Ph2 PNYRcHL64MFD1 qSN8FB60AZ88B5DrQintd GFibGU+PHRhYmxlIHdpZH RoPScxMDAlJyBzdHlsZT0 fHy8oEZZzQWNu oKrgcPFpUmSet3tyJBYcC BeiYP0tcNhtM3OauQJ1GE Yry0e1Lz85I96zD2FuoHS +SSYswRS1hGV6 cO9vRmCcRdJ0WYrdI227Z xEhqVKgVdnfr1amz8nmjX n7ZsA7MIVvdqNvqSsnSUR 2n9IqRw92B15j IHdpZHRoPSIxNSUiIHZhb Qqjzl9dvS2gEe1+PGNvbC D3nNV5qY8vCbNlMzS0OUd xA363CwMusYOb Jmxzq5xdn7xflZu5IoFtZ WCnexTvtJoxDRU5u2RoXj 62E6CycMkgy3IpEge0nn8 2qUByg1T0cUZ7 D4VwQYCurzhajEZeaAaaI L8sFHEfkzwgMFGcdS5rDU RkN2j4PmEgKiL5SOkhV4I ekmO1FJXfkSBm PStgKRG2B88oz4J2XJMiP KUfPDI7pQR8sO3miIbwuq ogbGVmdDsgdmVydGljYWw vEHqqD230QFWv zSgiPVGbeZ8iQNXeqTSsq JqbUM6jHUJepvozQg9QH3 JFLCBMVUNSRVRJQSBNPC9 6ZI11yLAmk4P6 eBK8V8WhLPRcijsgewvgr JO9BSBuEHUxhS27nNDxOK xdDo4hl9N2r015HSObMOG chE58Wc0vdVon SNRylDCDfW6yvicub0fyc assLfOuFOGkSTu0AEr1TJ ZlyHepZkTiEDY0RuX4IRC 5vARwzE9qePoe euqdvN9fPel+MDkvMTEvM Un7FYfhuGS+DFEzNEF0vK dwHGqnMJXwoG1mASRyZ7w 4TySrNaD4MFcb E4OrJNWybvwwTa07oW7hN dFjJfN6IGuvJ8SinlZ0FV OdkIHmAHtlMNK5J23hx1I 3UXAyKOOqUNP5 aEZ0cN4vwRevugbvaXFuu DsgdmVydGljYWwtYWxpZ2 46IHRvcDsnPjYwIFllYXJ aCM47SW72mNIb e2I8pTO6M8QxBCXhxxixk fifqSC5SGPgCBHnlM17uO IuHSnhHz2jq3B3v169HPI tUBIucC79Gk3j zQlhGKRurARGpJ1vyvera 7lptnmlWhTeDQVsRNs7KT w0OHAupUxhArGlYEG9LcY 0WLR0dVXmpI4x xWxywjncyA2oVsq+RmVtY CikSB52ZG84eYBoy1W9vM K5N2DsHWByrtoaypkwrBM 1MUMnZQScpA74 zPKoYQgfZx0ju5P8a083H GAcMGLerR95Iy1itZcsMC MxpKHSfZ3naylnn2oeefn gIzAwMDAwMDt0 ZMk1IJBpkUkgVzOjZQR3V tT8PGH8uZHygU7ilMoexb cnxI0tDze+W1J4iSP7gMC udDwvdGQ+PC90 tc30M3FjHnxqRkc9RFXdN CW4yPA2vD1qIRPgHZdbj1 R4zHU5J3RltuAnja8kc0w rGBSlKVssA22f uMEtw6E5VBXutTL7KUPxr TgrLnSraI68Whr+PGNvbG tee2DqQjhes0fnb9crzRa 9IjMwJSIgdmFs oAocNPD0a2UwPq52O97mH HdpZHRoPSIzMCUiIHZhbG ihdd6baE8yIu4+PGNvbCB 2rXF2tU0uSjVa QaA8PUkeI811FeVbaWPcZ ftjx9xok5mujOd7DoJnXX VwbjYsxMreGQK0w4AaEs1 7S5VwyLjni9Nf Fys3fm12zIWxb2V8aOG0P 3BhZGRpbmctbGVmdDogMC 6xFTBizczdRLUgiC5kDDL kS2m8IwNiBwV4 ZGbpU8MbymZ2OOTncVTwE BMwhZSJbF2wheofj0fdeg chAnYqJRKiMZu0TCa6CBU saWduOiBsZWZ0 HgP0MPU6kMGajR3duTcdf qfznP2iNrj+AFy4y7ewpZ GrXO0aiXG7ZN36SM89eOX ck6K4gTP8Y2Ht FJPuemswflgffGJ8QHDlD LYduL51Sy4xaOvuRh1dKQ IvCVT9KBXmeLHyC7ShqP8 yOiAjMDAwMDAw V0BspONzGAubS508JEzzO mE6HSXxhqGkJ8JtLZMdeN vuGiO1z2F0Mx2BJT94ZF2 1CO72rMTbk9Z3 zAO1U5GkHSYwgilztygxb EX9RBGqAKDkjI62Ab1tpT isCk1iUSCdYLF3ONEaoSQ pE8KabQ4zNrMk SOZcNFItB0IrnXEwVDhtM 205JRjuQzM3PFQxabBbP2 OaLAYmnAgmBfT4y1W6Ea9 ORc92VG73EC44 iGCsx3O4yZV0T9XkZLZxe aryzenxxZU0XKXfCGVriS 58Ps1arEkhPf4pCKKaGGD 9PTZtzHXjJ7Bz aP7jFlNoHLCeWMVcN8Fhk EHoKGvnW679PGzjZgG5OC QmsjRwJ0KhNRMonLadBvT 6i8Q5Yr1JBUmg ssj6L6DkYlcmrBE+PC90Y XSsVZ11kYKugYZxb2lbnF y9WqXpBKHyBWP4aWlvHOp va4GhOUXpF85d bGFw (more content not included)... Normal [facility] Consent for Treatmenton -3 Consent for Treatment [id number]#1 .00CD:127 Normal [facility] NM Bone Scan 3 Phaseon 09-20 [...] Post Administration (hrs): 3 Normal [facility] Physician Orderon 09-12-2021 Physician Order [id number]# 1.00CD:127 Normal [facility] MRI Shoulder w/o Lefton 0 MRI [...] by Jackson Ma on 08/28/2021 0949 Normal [facility] Specialist FLUORO FOR SURGICAL PROCEDUR ESon [...] Phillip Corral MD 09/11/20 Final result Normal [facility] Rory, Chpo Incoming Radiant Results From [employer]Pacs - 09/11/2020 5:09 PM EST FLUORO FOR SURGICAL PROCEDURES : 09/11/2020 3:53 PM CLINICAL HISTORY: Lumbar Diskectomy . COMPARISON: None available. Intraoperative fluoroscopy was provided for Dr. Gabriel gonzalez. A total of 1 seconds of fluoroscopy was used, with 4 fluoroscopic stills saved. No diagnostic images were obtained. Please see Dr. Rios surgical notes for completeness. [place], [place] FLUORO FOR SURGICAL PROCEDURES : 09/11/2020 3:53 PM CLINICAL HISTORY: Lumbar Diskectomy . COMPARISON: None available. Intraoperative fluoroscopy was provided for Dr. Gabriel gonzalez. A total of 1 seconds of fluoroscopy was used, with 4 fluoroscopic stills saved. No diagnostic images were obtained. Please see Dr. Rios surgical notes for completeness. [place], [place] POCT Glucoseon 09-11-2020 Glucose [Mass/Vol] 145 mg/dL Critically high 60-115 [facility] Comment on above: Performed By: #### P GLU #### [facility] [address] [place] [address] POC Performed on ACCU-CHEK Normal [facility] Comment on above: Performed By: #### P GLU #### [facility] [address] [place] [address] Glucose [Mass/Vol] 145 mg/dL High 60 - 115 mg/dl [facility], [place] Interpretation and review of laboratory results Abnormal [facility], [place] Performed on ACCU-CHEK [facility], [place] Glucose [Mass/Vol] 131 mg/dL Critically high 60-115 M [facility] Comment on above: Performed By: #### P GLU #### [facility] [address] [place] [address] POC Performed on ACCU-CHEK Normal [facility] Comment on above: Performed By: #### P GLU #### [facility] [address] [facility] [place] [address] Glucose [Mass/Vol] 131 mg/dL High 60 - 115 mg/dl [place], [place] Interpretation and review of laboratory results Abnormal [facility], [place] Performed on ACCU-CHEK [facility], [place] Surgical Specimenon 09-11-20 Surgical Specimen [facility] [address] [place] [address] FINAL SURGICAL PATHOLOGY REPORT Patient Name: JORDY DUNNE Accession No: [id number] Age Sex: 1960 Location: [address] [address] Account No: [id number] Collected: 09/11/2020 Med Rec No: [id number] Received: 09/12/2020 Attend Phys: MAGDALENO RIOS Completed: [...] one cassette after brief decalcification. ALIFA/ALIFA CPT: 03593 X1 [id number] X1 VENKATESH COTTON M.D. 09/13/2020 Electronically signed out by Page 1 of 1 [facility] Comment on above: Performed By: #### S UR #### [facility] [address] [place] [address] XR CHEST PORTABLEon 09-11-20 20 INR Coag (Bld) [Relative time] NO ACUTE ACTIVE CARDIOPULMONARY PROCESS [place], [place] EXAMINATION: CHEST PORTABLE VIEW CLINICAL HISTORY: Back pain COMPARISONS: None FINDINGS: Single views of the chest is submitted. The cardiac silhouette is enlarged. Pulmonary vascular unremarkable. Right sided trachea. No focal infiltrates. No Pneumothoraces. [place], [place] Rory, [employer] Incoming Radiant Results From [employer] - 09/11/2020 7:58 AM EST EXAMINATION: CHEST PORTABLE VIEW CLINICAL HISTORY: Back pain COMPARISONS: None FINDINGS: Single views of the chest is submitted. The cardiac silhouette is enlarged. Pulmonary vascular unremarkable. Right sided trachea. No focal infiltrates. No Pneumothoraces. IMPRESSION: NO ACUTE ACTIVE CARDIOPULMONARY PROCESS [place] XR LUMBAR SPINE (MIN 4 VIEWS )on 09-11-2020 Rory, Chpo Incoming Radiant Results From [facility] - 09/11/2020 10:22 AM EST EXAMINATION: XR [...] show degenerative changes.. IMPRESSION NO ACUTE FRACTURE. [place] EXAMINATION: XR LUMBAR SPINE (MIN 4 [...] show degenerative changes.. IMPRESSION NO ACUTE FRACTURE. [place] APTTon 09-10-2020 aPTT Coag (Bld) [Time] 30.5 s [place], [place] Comment on above: Effective 07/25/2020: Heparin Therapeutic Range: 64.0 98.0 seconds. CBC Auto Differentialon 12-2 Basophils (Bld) [#/Vol] 0.1 10*3/uL 0 - 0.2 K/uL [place] Basophils/100 WBC (Bld) 0.7 % [place] Eosinophils (Bld) [#/Vol] 0.0 10*3/uL 0 - 0.7 K/uL [place] Eosinophils/100 WBC (Bld) 0.2 % [place] Erythrocyte distribution width (RBC) [Ratio] 13.2 % 11.5 - 14.5 % [place] Hematocrit (Bld) [Volume fraction] 41.0 % 37 - 47 % [place] Hemoglobin (Bld) [Mass/Vol] 14.2 g/dL 12 - 16 g/dL [place] Interpretation and review of laboratory results Abnormal [place] Lymphocytes (Bld) [#/Vol] 2.9 10*3/uL 1 - 4.8 K/uL [place] Lymphocytes/100 WBC (Bld) 25.0 % [place] MCH (RBC) [Entitic mass] 32.9 pg High 27 - 31.3 pg [place] MCHC (RBC) [Mass/Vol] 34.6 % 33 - 37 % [place], [place] MCV (RBC) [Entitic vol] 95.0 fL 82 - 100 fL [place] Monocytes (Bld) [#/Vol] 0.4 10*3/uL 0.2 - 0.8 K/uL [place] Monocytes/100 WBC (Bld) 3.8 % [place] Neutrophils Absolute 8.2 K/uL High 1.4 - 6 .5 K/uL [place] Neutrophils/100 WBC (Bld) 70.3 % [place] Platelets (Bld) [#/Vol] 196 10*3/uL 130 - 400 K/uL [place] RBC (Bld) [#/Vol] 4.32 10*6/uL [place] WBC (Bld) [#/Vol] 11.6 10*3/uL High 4.8 - 10.8 K/uL [place] CBC With Platelet and Differ entialon 09-10-2020 Basophils (Bld) [#/Vol] 0.1 10*3/uL Normal 0.0-0.2 [facility] Comment on above: Performed By: #### C BCWD #### [facility] [address] [place] [address] Basophils/100 WBC (Bld) 0.7 % Normal [facility] Comment on above: Performed By: #### C BCWD #### [facility] [address] [place] [address] Eosinophils (Bld) [#/Vol] 0.0 10*3/uL Normal 0.0-0.7 [facility] Comment on above: Performed By: #### C BCWD #### [facility] [address] [place] [address] Eosinophils/100 WBC (Bld) 0.2 % Normal [facility] Comment on above: Performed By: #### C BCWD #### [facility] [address] [place] [address] Erythrocyte distribution width (RBC) [Ratio] 13.2 % Normal 11.5-14.5 [facility] Comment on above: Performed By: #### C BCWD #### [facility] [address] [place] [address] Hematocrit (Bld) [Volume fraction] 41.0 % Normal 37.0-47.0 [facility] Comment on above: Performed By: #### C BCWD #### [facility] [address] [place] [address] Hemoglobin (Bld) [Mass/Vol] 14.2 g/dL Normal 12.0-16.0 [facility] Comment on above: Performed By: #### C BCWD #### [facility] [address] [place] [address] Lymphocytes (Bld) [#/Vol] 2.9 10*3/uL Normal 1.0-4.8 [facility] Comment on above: Performed By: #### C BCWD #### [facility] [address] [place] [address] Lymphocytes/100 WBC (Bld) 25.0 % Normal [facility] Comment on above: Performed By: #### C BCWD #### [facility] [address] [place] [address] MCH (RBC) [Entitic mass] 32.9 pg Critically high 27.0-31.3 [facility] Comment on above: Performed By: #### C BCWD #### [facility] [address] [place] [address] MCHC (RBC) [Mass/Vol] 34.6 % Normal 33.0-37.0 [facility] Comment on above: Performed By: #### C BCWD #### [facility] [address] [place] [address] MCV (RBC) [Entitic vol] 95.0 fL Normal 82.0-100.0 [facility] Comment on above: Performed By: #### C BCWD #### [facility] [address] [place] [address] Monocytes (Bld) [#/Vol] 0.4 10*3/uL Normal 0.2-0.8 [facility] Comment on above: Performed By: #### C BCWD #### [facility] [address] [place] [address] Monocytes/100 WBC (Bld) 3.8 % Normal [facility] Comment on above: Performed By: #### C BCWD #### [facility] [address] [place] [address] Neutrophils (Bld) [#/Vol] 8.2 10*3/uL Critically high 1.4-6.5 [facility] Comment on above: Performed By: #### C BCWD #### [facility] [address] [place] [address] Neutrophils/100 WBC (Bld) 70.3 % Normal [facility] Comment on above: Performed By: #### C BCWD #### [facility] [address] [place] [address] Platelets (Bld) [#/Vol] 196 10*3/uL Normal 130-400 [facility] Comment on above: Performed By: #### C BCWD #### [facility] [address] [place] [address] RBC (Bld) [#/Vol] 4.32 10*6/uL Normal 4.20-5.40 [facility] Comment on above: Performed By: #### C BCWD #### [facility] [address] [place] [address] WBC (Bld) [#/Vol] 11.6 10*3/uL Critically high 4.8-10.8 [facility] Comment on above: Performed By: #### C BCWD #### [facility] [address] [place] [address] COVID-19on 09-10-2020 COVID-19, NAAT Not Detected Normal Not Detect [facility] Comment on above: Result Comment: [...] authorized laboratories. Fact sheet for Healthcare Providers: https://www.fda.gov/media/878725/download Fact sheet for Patients: https://www.fda.gov/media/055406/download METHODOLOGY: Isothermal Nucleic Acid Amplification Performed By: #### C OVPC #### [facility] [address] [place] [address] SARS-CoV-2, NAAT Not Detected Not Detected [facility] [place] Comment on above: Rapid NAAT: Negative results [...] authorized laboratories. Fact sheet for Healthcare Providers: https://www.fda.gov/media/946159/download Fact sheet for Patients: https://www.fda.gov/media/137046/download METHODOLOGY: Isothermal Nucleic Acid Amplification Comprehensive Metabolic Pane felipa 09-10-2020 Albumin [Mass/Vol] 3.9 g/dL Normal 3.5-4.6 [facility] Comment on above: Performed By: #### C MP #### [facility] [address] [facility] [address] ALP [Catalytic activity/Vol] 76 U/L Normal 40-130 [facility] Comment on above: Performed By: #### C MP #### [facility] [address] [facility] [address] ALT [Catalytic activity/Vol] 22 U/L Normal 0-33 [facility] Comment on above: Result Comment: Spec imen hemolysis has exceeded the interference as defined by Shikha. Result may be affected. Suggest recollection if clinically indicated. Performed By: #### C MP #### [facility] [address] [facility] [address] Anion gap [Moles/Vol] 9 mmol/L Normal 9-15 [facility] Comment on above: Performed By: #### C MP #### [facility] [address] [facility] [address] AST [Catalytic activity/Vol] 18 U/L Normal 0-35 [facility] Comment on above: Result Comment: Spec imen hemolysis has exceeded the interference as defined by Shikha. Value may be falsely increased. Suggest recollection if clinically indicated. Performed By: #### C MP #### [facility] [address] [place] [address] Bilirubin [Mass/Vol] 0.3 mg/dL Normal 0.2-0.7 [facility] Comment on above: Performed By: #### C MP #### [facility] [address] [place] [address] Calcium [Mass/Vol] 9.2 mg/dL Normal 8.5-9.9 [facility] Comment on above: Performed By: #### C MP #### [facility] [address] [place] [address] Chloride [Moles/Vol] 103 mmol/L Normal 95-107 [facility] Comment on above: Performed By: #### C MP #### [facility] [address] [place] [address] CO2 [Moles/Vol] 28 mmol/L Normal 20-31 [facility] Comment on above: Performed By: #### C MP #### [facility] [address] [place] [address] Creatinine [Mass/Vol] 0.67 mg/dL Normal 0.50-0.90 [facility] Comment on above: Performed By: #### C MP #### [facility] [address] [place] [address] GFR/1.73 sq M predicted among blacks MDRD (S/P/Bld) [Vol rate/Area] mL/min/{1.73_m2} Normal >60 [facility] Comment on above: Result Comment: >60 mL/min/1.73m2 EGFR, calc. for ages 18 and older using the MDRD formula (not corrected for weight), is valid for stable renal function. Performed By: #### C MP #### [facility] [address] [place] [address] GFR/1.73 sq M.predicted MDRD (S/P/Bld) [Vol rate/Area] mL/min/{1.73_m2} Normal >60 [facility] Comment on above: Result Comment: >60 mL/min/1.73m2 EGFR, calc. for ages 18 and older using the MDRD formula (not corrected for weight), is valid for stable renal function. Performed By: #### C MP #### [facility] [address] [place] [address] Globulin (S) [Mass/Vol] 2.4 g/dL Normal 2.3-3.5 [facility] Comment on above: Performed By: #### C MP #### [facility] [address] [place] [address] Glucose [Mass/Vol] 189 mg/dL Critically high 70-99 [facility] Comment on above: Performed By: #### C MP #### [facility] [address] [place] [address] Potassium [Moles/Vol] 4.2 mmol/L Normal 3.4-4.9 [facility] Comment on above: Result Comment: Spec imen hemolysis has exceeded the interference as defined by Shikha. Value may be falsely increased. Suggest recollection if clinically indicated. Performed By: #### C MP #### [facility] [address] [place] [address] Protein [Mass/Vol] 6.3 g/dL Normal 6.3-8.0 [facility] Comment on above: Performed By: #### C MP #### [facility] [address] [place] [address] Sodium [Moles/Vol] 140 mmol/L Normal 135-144 [facility] Comment on above: Performed By: #### C MP #### [facility] [address] [place] [address] Urea nitrogen [Mass/Vol] 17 mg/dL Normal 6-20 [facility] Comment on above: Performed By: #### C MP #### [facility] [address] [place] [address] Albumin [Mass/Vol] 3.9 g/dL 3.5 - 4.6 g/dL [place] ALP [Catalytic activity/Vol] 76 U/L 40 - 130 U/L [place] ALT [Catalytic activity/Vol] 22 U/L 0 - 33 U/L [place] Comment on above: Specimen hemolysis h as exceeded the interference as defined by Shikha. Result may be affected. Suggest recollection if clinically indicated. Anion gap [Moles/Vol] 9 mmol/L [place], [place] AST [Catalytic activity/Vol] 18 U/L 0 - 35 U/L [place] Comment on above: Specimen hemolysis h as exceeded the interference as defined by Shikha. Value may be falsely increased. Suggest recollection if clinically indicated. Bilirubin Ql (U) 0.3 mg/dL 0.2 - 0.7 mg/dL [place] Calcium [Mass/Vol] 9.2 mg/dL 8.5 - 9.9 mg/dL [place] Chloride [Moles/Vol] 103 mmol/L [place] CO2 [Moles/Vol] 28 mmol/L [place] Creatinine [Mass/Vol] 0.67 mg/dL 0.5 - 0.9 mg/dL [place] GFR >60.0 >60 [place] Comment on above: >60 mL/min/1.73m2 EG FR, calc. for ages 18 and older using the MDRD formula (not corrected for weight), is valid for stable renal function. GFR Non- >60.0 >60 [place] Comment on above: >60 mL/min/1.73m2 EG FR, calc. for ages 18 and older using the MDRD formula (not corrected for weight), is valid for stable renal function. Globulin (S) [Mass/Vol] 2.4 g/dL 2.3 - 3.5 g/dL [place] Glucose [Mass/Vol] 189 mg/dL High 70 - 99 mg/dL [place] Interpretation and review of laboratory results Abnormal [place] Potassium [Moles/Vol] 4.2 mmol/L [place] Comment on above: Specimen hemolysis h as exceeded the interference as defined by Shikha. Value may be falsely increased. Suggest recollection if clinically indicated. Protein [Mass/Vol] 6.3 g/dL 6.3 - 8 g/dL [place] Sodium [Moles/Vol] 140 mmol/L [place] Urea nitrogen [Mass/Vol] 17 mg/dL 6 - 20 mg/dL [place] MRI LUMBAR SPINE WO CONTRAST on [...] Nando Dixon MD 09/10/20 Final result Normal [facility] Rory, Chpo Incoming Radiant Results From [facility]Pacs - 09/10/2020 4:27 PM EST STUDY IS [...] superior facet joint spurring and/or ligamentous thickening. [place] STUDY IS REVIEWED WITH THE REFERRING [...] superior facet joint spurring and/or ligamentous thickening. [place] Partial Thromboplastin Timeo n 09-10-2020 aPTT Coag (Bld) [Time] 30.5 s Normal 24.4-36.8 [facility] Comment on above: Result Comment: Effe ctive 07/25/2020: Heparin Therapeutic Range: 64.0 ? 98.0 seconds. Performed By: #### P TT #### [facility] [address] [place] [address] Prothrombin Timeon 0 INR Coag (PPP) [Relative time] 1.1 {INR} Normal [facility] Comment on above: Performed By: #### P T #### [facility] [address] [place] [address] PT Coag (PPP) [Time] 13.9 s Normal 12.3-14.9 [facility] Comment on above: Performed By: #### P T #### [facility] [address] [place] [address] Protime-INRon 09-10-2020 INR Coag (PPP) [Relative time] 1.1 {INR} [place] PT Coag (PPP) [Time] 13.9 s [place] XR CHEST PORTABLEon 12-21-20 20 XR CHEST PORTABLE EXAMINATION: CHEST PORTABLE VIEW CLINICAL HISTORY: Back pain COMPARISONS: None FINDINGS: Single views of the chest is submitted. The cardiac silhouette is enlarged. Pulmonary vascular unremarkable. Right sided trachea. No focal infiltrates. No Pneumothoraces. IMPRESSION: NO ACUTE ACTIVE CARDIOPULMONARY PROCESS Interpreted by: Phillip Corral MD Signed by: Phillip Corral MD 09/11/20 Final result Normal [facility] XR LUMBAR SPINE (MIN 4 VIEWS )on [...] Phillip Corral MD 09/11/20 Final result Normal [facility] Vital Signs Date Time Vital Sign Value Performing Clinician Faci lity 09-11-2020 17:30-0500 BP Diastolic 94 mm[Hg] [place] 09-11-2020 17:30-0500 BP Systolic 182 mm[Hg] [facility] , [place] 09-11-2020 17:30-0500 Pulse (Heart Rate) 60 /min [place] 09-11-2020 17:30-0500 Pulse Oximetry 94 % [place] 09-11-2020 17:30-0500 Respiratory Rate 19 /min [facility] [employer] [facility] 09-11-2020 16:50-0500 Body Temperature 98.01 [degF] [facility] [facility] 09-10-2020 10:41-0500 BMI (Body Mass Index) 27.46 kg/m2 [facility] [employer] [place] 09-10-2020 10:41-0500 Body weight 72.58 kg [place] 09-10-2020 10:41-0500 Height 162.6 cm Magdaleno Gabriel [facility] [place] , [place] Encounters Encounter Date Encounter Type Care Provider Facility Start: 11-30-2023 End: 11-30-2023 ambulatory DORA BELTRAN Not Available Start: 11-10-2023 End: 11-10-2023 ambulatory ZAIDA FLORES Not Available Start: 10-27-2023 Refill Mela Daily SENIOR STATISTICIAN Work Phone: [facility] Comment on above: Mixed hyperlipidemia (CMS/HCC) (Primary Dx) Start: 10-05-2023 End: 10-05-2023 ambulatory MELA AICHHOLZ Not Available Start: 08-25-2023 End: 08-25-2023 ambulatory MELA AICHHOLZ Not Available Start: 09-05-2022 End: 09-06-[address] EVAN GILLESPIE Facility: Start: 05-30-2022 End: 05-31-2022 ambulatory Orlando Cole Facility:[facility] Start: 05-30-2022 End: 05-30-2022 Patient encounter procedure Orlando Cole [facility] Start: 11-12-2021 Encounter for genera l adult medical examination without abnormal findings DR EVAN GILLESPIE [facility] Start: 11-11-2021 End: 11-12-[address] EVAN GILLESPIE Facility: Start: 11-11-2021 End: 11-12-2021 Encounter for general adult medical examination without abnormal findings DR EVAN GILLESPIE Facility:[facility] Start: 09-20-2021 End: 09-21-2021 ambulatory Cameron Singleton Facility:[facility] Start: 09-10-2020 End: 09-11-2020 Evaluation and management of inpatient SR EVAN GILLESPIE [facility] Start: 09-10-2020 End: 09-11-2020 Evaluation and management of inpatient Magdaleno H. Gabriel Work Phone: [facility] Comment on above: Right leg weakness ( Primary Dx); Protruded lumbar disc; Postoperative pain Procedures Date Procedure Procedure Detail Performing Clinician Start: 09-30-2023 Mammography Mela Elda olz SENIOR STATISTICIAN Work Phone: Start: 09-11-2020 Fluoroscopy during operation [...] for malign ant neoplasm of breast Mammogram [facility] Start: 01-07-2024 End: 01-07-2024 Patient encounter procedure 01/07/2024 9:40 AM EDT Office Visit [facility] [address] [place] [phone] Mela Daily NP [address] [place] [id number] [facility] Start: 11-20-2023 Screening for malign ant neoplasm of cervix Cervical Cancer Screening [facility] Comment on above: Postponed from 06/01 (Other Medical Reasons) Start: 11-20-2023 Screening for malign ant neoplasm of colon Colorectal Cancer Screening [facility] Comment on above: Postponed from 06/01 (Other Medical Reasons) Start: 11-10-2023 End: 11-10-2023 Patient encounter procedure 11/10/2023 8:30 AM EST Office Visit [facility] [address] [place] [phone] Zaida Flores MD [address] [place] [address] [facility] Start: 08-29-2022 Hemoglobin A1c measurement Diabetes: Hemoglobin A1C [facility] Start: 09-24-2020 End: 09-24-2020 Office Visit 09/24/2020 Office Visit Neurosurgery Magdaleno Rios MD [address], [address] [place] [address] [employer] Start: 05-22-2020 Influenza vaccination Flu vaccine (# 1) [place], [place] Start: 2011 Screening for malign ant neoplasm of breast Breast cancer screen [place] Start: 2011 Screening for malign ant neoplasm of colon Colon cancer screen colonoscopy [place] Start: 2011 Shingles Vaccine (1 of 2) Shingles Vaccine (1 of 2) [place] Start: 2001 Diabetes screen Diabetes screen [place], [place] Start: 2001 Lipid panel Lipid screen [place], [place] Start: 1991 Screening for malign ant neoplasm of cervix HPV/Cotest [facility] Start: 1982 Screening for malign ant neoplasm of cervix [facility] Start: 1980 DTaP/Tdap/Td vaccine (1 - Tdap) DTaP/Tdap/Td vaccine (1 - Tdap) [place] Start: 1980 Urine screening for protein Diabetes: Urine Protein Screening [facility] Start: 1976 HIV screening HIV screen [place], [place] Start: 1971 Glaucoma screening Diabetes: R etinopathy Screening [facility] Start: 1961 Hepatitis C screening Hepatitis C sc alonzo [place], [place] Start: 1961 Screening for malign ant neoplasm of colon [facility] EKG 12 Lead - Chest Pain EKG 12 Lead - Chest Pain ECG STAT 09/10/2020 4:45 PM EST [place] Oxygen therapy [[facility] Data Set] Initiate Oxygen Therapy Protocol Respiratory Care Routine Daily until discontinued starting 09/10/2020 [place] Comment on above: Daily until disconti nued starting 09/10/2020 Surgical Pathology Surgical Path ology Lab Routine Release Upon Ordering for 1 Occurrences starting 09/11/2020 [place] Comment on above: Release Upon Orderin g for 1 Occurrences starting 09/11/2020 Payers Date Payer Category Payer Unknown BCBS [id number] [id number] 2015-Present [phone] [address] [place] [address] [id number] 1960 Unknown [id number] 1960 Unknown [id number] 1960 Unknown [id number] 1960 Unknown [id number] 1960 Unknown [id number] 1960 Unknown [id number] 1960 Unknown [id number] 1960 Unknown [id number] 1960 Unknown [id number] 1959 Unknown [id number] Social History Date Type Detail Facility Start: 09-11-2020 Tobacco smoking stat [facility] Former smoker [place], [place] History of tobacco use Cigarette Smoker [place] Start: 09-11-2020 End: 08-25-2023 Cigarettes smoked current (pack per day) - Reported [facility] Start: 09-11-2020 Tobacco use and exposure Never used [place] Start: 09-11-2020 Alcohol intake Lifetime non-d shobha (finding) [place] Start: 09-10-2020 History SDOH Alcohol Frequency 1 [place] Start: 1960 Sex Assigned At Not on file [place] Exposure to SARS-CoV -2 (event) Not sure [place] Tobacco smoking status No Smokin g Status Entered [facility] Start: 08-25-2023 End: 10-05-2023 Sex Assigned At Female [facility] Start: 08-25-2023 Tobacco smoking stat [facility] Smokes tobacco daily [facility] Start: 10-05-2023 Alcohol intake Current drinke r of alcohol (finding) [facility] Within the last year , have you been afraid of your partner or ex-partner? No [facility] Do you belong to any clubs or organizations such as shinto groups, unions, fraternal or athletic groups, or [...] care, and heating Not hard at all [facility] Do you feel stress - tense, restless, nervous, or anxious, or unable to sleep at night because your mind is troubled all the time - these days [OSQ] Not at all [facility] (I/We) worried wheth er (my/our) food would run out before (I/we) got money to buy more. Never true [facility] Start: 08-25-2023 Tobacco Comment 10-19 cigarettes/day [facility] Start: 08-25-2023 Alcohol Comment 1-2 drinks mon thly or less, caffeine 1-[address] [facility] Evaluation + Plan note Note Date & Type Note Facility Evaluation + Plan note No data available for this section [facility] Evaluation note Note Date & Type Note Facility Evaluation note Diagnosis Mixed hyperlipidemia (CMS/HCC)- Primary Mixed hyperlipidemia documented in this encounter [facility] Discharge instructions Note Date & Type Note Facility Hospital Discharge instructions No data available for this section [facility] Progress note Note Date & Type Note Facility Progress note No data available for this section [facility] Discharge Instructions * Instructions* Magdaleno Rios [...] your physician 11) Call your doctor at [phone] for an appointment (or follow up as [...] call OFFICE. The 24- hour phone is [phone] 13) If you are unable to contact [...] Agents on File Name Relationship [facility] Manuel Dunne Spouse Primary Decision [...] Weakness of right leg Magdaleno Rios MD [address], [address] [place] [address] [facility] Ordered Prescriptions (unrec ognized section and [...] section and content) DATE CREATED AUTHOR 09/13/2020 [facility] DATE CREATED AUTHOR AUTHOR'S ORGANIZ ATION 10/21/[address] [facility] dical Specialist DATE CREATED AUTHOR AUTHOR'S ORGANIZ ATION 06/02/2022 [facility] DATE CREATED AUTHOR AUTHOR'S ORGANIZ ATION 09/12/2022 [facility] DATE CREATED AUTHOR AUTHOR'S ORGANIZ ATION 11/30/[address] [facility] dical Specialists EPIC Care Team (unrecognized sect ion and content) Food Stand Manager Relationship Specialty Start Date End Date Jose Powers MD PCP - General Family Medicine 08/18/23 Mela Daily NP [address] [place] [address] Nurse Practitioner Family Medicine 08/18/23 FOR RECORDS [...] BE BASED ON THE PRIMARY CLINICAL RECORDS. [facility] [employer] [facility]. provides no warranty or guarantee of the accuracy or completeness of information in this document.
--- NOTE | 2024-01-03 15:50 | ECG_ITS ---
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
--- NOTE | 2024-01-03 15:58 | XR_ITS ---
The [address] [address] Patient Name: JORDY PHILIP MRN: [id number] date: 1960 Sex: F Assigned Patient Location: ER Current Patient Location: ER Accession/Order Number: [id number] Exam Date: 01/03/2024 16:40 Report Date: 01/03/2024 18:06 At the request of: SAMUEL HERNANDEZ Procedure: XR chest 1V ONE-VIEW CHEST RADIOGRAPH, 01/03/2024 4:40 PM EDT COMPARISON: None. CLINICAL HISTORY: Dizzy, HTN Findings and impression: 1. No acute pulmonary disease. 2. Borderline cardiomegaly appears slightly accentuated due to patient rotation to the right. 3. No acute osseous abnormality. Electronically authenticated by: Robert COFFEY Date: 01/03/2024 18:06
--- NOTE | 2024-01-03 15:59 | CT_ITS ---
The [address] [address] Patient Name: JORDY PHILIP MRN: [id number] date: 1960 Sex: F Assigned Patient Location: ER Current Patient Location: ER Accession/Order Number: [id number] Exam Date: 01/03/2024 16:36 Report Date: 01/03/2024 17:37 At the request of: SAMUEL HERNANDEZ Procedure: CT head/brain wo con EXAMINATION: CT head/brain wo con, 01/03/2024 4:36 PM EDT HISTORY: Vertigo, HTN COMPARISON: CT head 03/10/2017. TECHNIQUE: CT scan of the head was performed without IV contrast. CT dose reduction technique was used, including Automated Exposure Control. FINDINGS: BRAIN PARENCHYMA/CSF SPACES: Ventricles are normal in size for age. There is no hemorrhage, mass effect or midline shift. Mild low-attenuation in the white matter consistent with chronic microvascular ischemia. Similar small hypodensity in the left basal ganglia suggestive of chronic lacunar infarct. PARANASAL SINUSES: Clear. SKULL BASE AND CALVARIUM: Normal. EXTRACRANIAL SOFT TISSUES: Normal. CT/CT head/brain wo con IMPRESSION: 1. No acute intracranial abnormality. 2. Chronic microvascular ischemia and small chronic left basal ganglia lacunar infarct. Electronically authenticated by: MORA ADAIR Date: 01/03/2024 17:37
--- NOTE | 2024-01-03 15:59 | ED.DIZZY1 ---
HPI - Dizziness General Chief Complaint: Dizziness Stated Complaint: DIZINESS AND HIGH SUGAR Time Seen by Provider: 01/03/24 15:39 History of Present Illness HPI Narrative: Patient is a 63-year-old female who presents to the emergency department for the evaluation of dizziness that began 1 hour ago. She reports an onset of vertigo type dizziness that she describes as a room spinning. She has felt very nauseous but has not had any vomiting. She denies visual changes, chest pain, shortness of breath. She denies any recent illness, fevers, congestion. No diarrhea or urinary symptoms. She denies peripheral paresthesias or speech changes. She takes 2 blood pressure medications And metformin as well as atorvastatin. She states her blood pressure medication was recently adjusted by her PCP. She is noted to be hypertensive at initial interview. Related Data Home Medications ?Medication ?Instructions ?Recorded ?Confirmed atorvastatin 20 mg tablet 20 mg PO DAILY 12/30/23 01/03/24 metformin 500 mg tablet 500 mg PO BID 12/30/23 01/03/24 propranolol 60 mg capsule,24 60 mg PO Q24H 12/30/23 01/03/24 hr,extended release lisinopril 10 mg tablet 10 mg PO DAILY 12/31/23 01/03/24 Previous Rx's ?Medication ?Instructions ?Recorded meclizine 25 mg chewable tablet 25 mg PO QID PRN dizziness #12 tabs 01/03/24 (Antivert) ondansetron 4 mg disintegrating 4 mg PO Q6H PRN nausea and 01/03/24 tablet vomiting #12 tabs Allergies Allergy/AdvReac Type Severity Reaction Status Date / Time No Known Drug Allergies Allergy Verified 01/03/24 15:42 Review of Systems ROS Constitutional Denies: fever or chills Eyes Denies: change in vision Ears, nose, mouth, and throat Denies: throat pain or nasal congestion Cardiovascular Denies: chest pain Respiratory Denies: shortness of breath or cough Gastrointestinal Denies: nausea or vomiting Musculoskeletal Denies: back pain or neck pain Integumentary/Breast Denies: rash Neurological Reports: dizziness and vertigo; Denies: headache, numbness in extremities or weakness in extremities Endocrine Denies: excessive urination Hematologic/Lymphatic Denies: easy bruising or easy bleeding PFSH PFS Medical History (Updated 01/03/24 @ 18:20 by SACHA Clay) Obesity ?E66.9 - Obesity, unspecified (ICD-10) Hypertension ?I10 - Essential (primary) hypertension (ICD-10) High cholesterol ?E78.00 - Pure hypercholesterolemia, unspecified (ICD-10) Hemorrhoids ?K64.9 - Unspecified hemorrhoids (ICD-10) Fibroids ?D21.9 - Benign neoplasm of connective and other soft tissue, unspecified (ICD-10) Diabetes ?E11.9 - Type 2 diabetes mellitus without complications (ICD-10) Colonic polyp ?K63.5 - Polyp of colon (ICD-10) Carpal tunnel syndrome, bilateral ?G56.03 - Carpal tunnel syndrome, bilateral upper limbs (ICD-10) Arthritis ?M19.90 - Unspecified osteoarthritis, unspecified site (ICD-10) Surgical History (Updated 12/31/23 @ 10:14 by Ann Morrison RN) H/O tubal ligation ?Z98.51 - Tubal ligation status (ICD-10) S/P trigger finger release ?Z98.890 - Other specified postprocedural states (ICD-10) H/O Spinal surgery ?Z98.890 - Other specified postprocedural states (ICD-10) H/O arthroscopy of shoulder ?Z98.890 - Other specified postprocedural states (ICD-10) H/O: hysterectomy ?Z90.710 - Acquired absence of both cervix and uterus (ICD-10) Hx of dilation and curettage ?Z98.890 - Other specified postprocedural states (ICD-10) H/O colonoscopy with polypectomy ?Z98.890 - Other specified postprocedural states (ICD-10) ?Z86.010 - Personal history of colonic polyps (ICD-10) Family History (Updated 12/30/23 @ 09:26 by Ann Morrison RN) Other Coronary artery disease Family history of stroke Social History Within the past year, how often did you have a drink containing alcohol: monthly or less Smoking status: Former smoker Nicotine containing products detail: quit in May Non-prescribed substance use: denies use Previous occupational history: retired Highest level of school completed/degree received: high school graduate Exam Narrative Exam Narrative: Gen.: Awake, alert, in no distress Head: Normocephalic, atraumatic ENT: Moist mucous membranes, Bilateral TMs clear Respiratory: No respiratory distress, lungs clear bilaterally Cardio: Regular rate and rhythm Extremities: Moves extremities equally Psych: Normal mood and affect Neuro: No focal neuro deficit, Alert and oriented with clear speech Skin: Warm, dry, intact Constitutional Vital Signs, click to edit/add: Last Vital Signs Temp 97.8 F 01/03/24 15:42 Pulse 66 01/03/24 17:50 Resp 13 01/03/24 17:50 BP 187/102 H 01/03/24 17:45 Pulse Ox 97 01/03/24 17:50 O2 Del Method Room Air 01/03/24 15:42 Course Vital Signs Vital signs: Vital Signs Temperature 97.8 F 01/03/24 15:42 Pulse Rate 68 01/03/24 15:42 Respiratory Rate 18 01/03/24 15:42 Blood Pressure 192/110 H 01/03/24 15:42 Pulse Oximetry 98 01/03/24 15:42 Oxygen Delivery Method Room Air 01/03/24 15:42 Temperature 97.8 F 01/03/24 15:42 Pulse Rate 66 01/03/24 17:50 Respiratory Rate 13 01/03/24 17:50 Blood Pressure 187/102 H 01/03/24 17:45 Pulse Oximetry 97 01/03/24 17:50 Oxygen Delivery Method Room Air 01/03/24 15:42 MDM - Dizziness MDM Narrative Medical decision making narrative: KG, lab studies, CT of the brain and chest x-ray are unremarkable. Blood pressure did improve without blood pressure medications. She was treated with IV fluids, Antivert and Zofran with improvement of dizziness. She was given Reglan, Benadryl for additional headache and nausea with improvement. She is sitting comfortably in no distress on reevaluation and is comfortable being discharged home. She ambulated to the bathroom with no difficulty. Antivert and Zofran given for home. Follow-up with PCP for blood pressure recheck and return to the ER if symptoms change or worsen Medical Records Attestation: I reviewed the patient's medical records. Lab Data Attestation: I reviewed the patient's lab results. Labs: Lab Results 01/03/24 01/03/24 Range/Units 16:00 17:25 WBC 5.6 (4.0-11.0) 10^3/uL RBC 4.51 (4.20-5.40) 10^6/uL Hgb 14.5 (12.0-16.0) g/dL Hct 40.0 (36.0-48.0) % MCV 88.7 (81.0-99.0) fL MCH 32.2 (26.7-34.0) pg MCHC 36.3 H (29.9-35.2) g/dL RDW 12.0 (11.0-15.0) % Plt Count 184 (150-450) 10^3/uL MPV 10.7 (9.5-13.5) fL Neut % (Auto) 56.0 (43.0-75.0) % Lymph % (Auto) 36.1 (20.5-60.0) % [place] % (Auto) 6.0 (1.7-12.0) % Eos % (Auto) 1.2 (0.9-7.0) % Baso % (Auto) 0.5 (0.2-2.0) % Neut # (Auto) 3.1 (1.4-6.5) 10^3/uL Lymph # (Auto) 2.0 (1.2-3.8) 10^3/uL [place] # (Auto) 0.3 (0.3-0.8) 10^3/uL Eos # (Auto) 0.1 (0.0-0.7) 10^3/uL Baso # (Auto) 0.0 (0.0-0.1) 10^3/uL Abs Immat Gran (auto) 0.01 (0.00-0.03) 10^3/uL Imm/Tot Granulo (auto) 0.2 (0.0-0.5) % PT 10.9 (9.0-11.6) sec INR 1.03 VBG pH 7.438 H (7.330-7.430) VBG pCO2 43.0 (40.0-52.0) mmHg Sodium 142 (136-145) mmol/L Potassium 3.8 (3.5-5.1) mmol/L Chloride 104 (98-107) mmol/L Carbon Dioxide 28.5 (21.0-32.0) mmol/L Anion Gap 13.3 BUN 8.0 (7.0-18.0) mg/dL Creatinine 0.73 (0.55-1.02) mg/dL Est GFR ( Amer) >60 (>=60) Est GFR (Non-Af Amer) >60 (>=60) BUN/Creatinine Ratio 11.0 Glucose 180 H (74-106) mg/dL Calcium 9.5 (8.5-10.1) mg/dL Magnesium 1.9 (1.8-2.4) mg/dL Total Bilirubin 0.5 (0.2-1.0) mg/dL AST 40 H (15-37) U/L ALT 87 H (14-59) U/L Alkaline Phosphatase 83 (46-116) U/L Troponin I High Sens 24.0 (4.0-51.3) pg/mL Total Protein 7.1 (6.4-8.2) g/dL Albumin 3.9 (3.4-5.0) g/dL Globulin 3.2 g/dL Albumin/Globulin Ratio 1.2 TSH 2.236 (0.358-3.740) uIU/mL Urine Color Lt. yellow (YELLOW) Urine Clarity Clear (CLEAR) Urine pH 8.0 (5.0-9.0) Ur Specific [place] 1.020 (1.005-1.025) Urine Protein 100 A (NEG/TRACE) mg/dL Urine Glucose (UA) Negative (NEGATIVE) mg/dL Urine Ketones Negative (NEGATIVE) mg/dL Urine Occult Blood Negative (NEGATIVE) Urine Nitrite Negative (NEGATIVE) Urine Bilirubin Negative (NEGATIVE) Urine Urobilinogen 0.2 (0.2-1.0) EU/dL Ur Leukocyte Esterase Negative (NEGATIVE) Acetone, Qual Small A (NEGATIVE) Imaging Data CT scan - head: Attestation: I have reviewed the pertinent imaging results. Radiologist's impression: ITS Impressions Head CT 01/03/24 15:59 IMPRESSION: 1. No acute intracranial abnormality. 2. Chronic microvascular ischemia and small chronic left basal ganglia lacunar infarct. Electronically authenticated by: MORA ADAIR Date: 01/03/2024 17:37 ECG Data Attestation: I personally reviewed and interpreted this ECG as follows: (Normal sinus rhythm at a rate of 66, no acute ST elevation or ectopy. EKG reviewed by attending physician) Discharge Plan Discharge Stand Alone Forms: Portal Instructions Chief Complaint: Dizziness Clinical Impression: Dizziness, Hypertension Patient Disposition: Home, Self-Care Time of Disposition Decision: 18:20 Condition: Good Prescriptions / Home Meds: New ondansetron 4 mg tablet,disintegrating 4 mg PO Q6H PRN (Reason: nausea and vomiting) Qty: 12 0RF meclizine [Antivert] 25 mg tablet,chewable 25 mg PO QID PRN (Reason: dizziness) Qty: 12 0RF No Action atorvastatin 20 mg tablet 20 mg PO DAILY Rx Instructions: 20mg at bedtime metformin 500 mg tablet 500 mg PO BID propranolol 60 mg capsule,extended release 24 hr 60 mg PO Q24H lisinopril 10 mg tablet 10 mg PO DAILY Print Language: Cuban Instructions: Hypertension (ED), Dizziness (ED) Referrals: Mela Daily NP [Primary Care Provider] - 1 week
[2024-01-03] MEDS: 0.9 % SODIUM CHLORIDE 1,000 ML 999 ML IV (16:06)
[2024-01-03 16:07] LABS: pH VBG 7.438 (7.330-7.430)
[2024-01-03] MEDS: MECLIZINE HCL 12.5 MG TABLET 25 MG PO (16:08)
[2024-01-03] MEDS: ONDANSETRON PF 4 MG/2 ML VIAL IV (16:09)
[2024-01-03 16:10] LABS: Basophils Percent Auto 0.5 % (0.2-2.0); Eosinophils Absolute Auto 0.1 10^3/uL (0.0-0.7); Eosinophils Percent Auto 1.2 % (0.9-7.0); Hemoglobin 14.5 g/dL (12.0-16.0); Immature Granulocytes Abs Auto 0.01 10^3/uL (0.00-0.03); Immature Granulocytes Pct Auto 0.2 % (0.0-0.5); Lymphocytes Percent Auto 36.1 % (20.5-60.0); Mean Corpuscular HGB Conc 36.3 g/dL (29.9-35.2); Mean Corpuscular Hemoglobin 32.2 pg (26.7-34.0); Mean Corpuscular Volume 88.7 fL (81.0-99.0); Mean Platelet Volume 10.7 fL (9.5-13.5); Monocytes Absolute Auto 0.3 10^3/uL (0.3-0.8); Neutrophils Absolute Auto 3.1 10^3/uL (1.4-6.5); Platelet Count 184 10^3/uL (150-450); Red Blood Count 4.51 10^6/uL (4.20-5.40); White Blood Count 5.6 10^3/uL (4.0-11.0)
[2024-01-03 16:21] LABS: INR 1.03; Prothrombin Time 10.9 sec (9.0-11.6)
[2024-01-03 16:30] LABS: Acetone SMALL (NEGATIVE)
[2024-01-03 16:47] LABS: Alanine Aminotransferase 87 U/L (14-59); Albumin Globulin Ratio 1.2; Albumin Level 3.9 g/dL (3.4-5.0); Alkaline Phosphatase 83 U/L (46-116); Anion Gap 13.3; Aspartate Amino Transferase 40 U/L (15-37); Bilirubin Total 0.5 mg/dL (0.2-1.0); Calcium 9.5 mg/dL (8.5-10.1); Carbon Dioxide 28.5 mmol/L (21.0-32.0); Chloride 104 mmol/L (98-107); Estimated GFR (African America >60 (>=60); Estimated GFR (Non-African Ame >60 (>=60); Globulin 3.2 g/dL; Glucose 180 mg/dL (74-106); Magnesium 1.9 mg/dL (1.8-2.4); Potassium 3.8 mmol/L (3.5-5.1); Sodium 142 mmol/L (136-145); Thyroid Stimulating Hormone 2.236 uIU/mL (0.358-3.740); Total Protein 7.1 g/dL (6.4-8.2)
[2024-01-03] MEDS: DIPHENHYDRAMINE HCL 50 MG/ML (1ML) VIAL 25 MG IV (17:28)
[2024-01-03] MEDS: METOCLOPRAMIDE HCL 10 MG/2 ML VIAL IVP (17:28)
[2024-01-03 17:45] LABS: Bilirubin Urine NEGATIVE (NEGATIVE); Blood Urine NEGATIVE (NEGATIVE); Clarity Urine CLEAR (CLEAR); Color Urine LT. YELLOW (YELLOW); Glucose Urine UA NEGATIVE (NEGATIVE); Ketones Urine NEGATIVE (NEGATIVE); Leukocyte Esterase Urine NEGATIVE (NEGATIVE); Nitrite Urine NEGATIVE (NEGATIVE); Protein Urine 100 mg/dL (NEG/TRACE); Urine Microscopic Indicated NO; Urobilinogen Urine 0.2 EU/dL (0.2-1.0)
== END 2024-01-03 18:34 | disposition home or self-care (01) ==
PROVIDERS: Physician Assistant; Emergency Provider Emergency Medicine; PCP Nurse Practitioner
DX: R42 Dizziness and giddiness (principal); I10 Essential (primary) hypertension; E78.00 Pure hypercholesterolemia, unspecified; E11.9 Type 2 diabetes mellitus without complications; M19.90 Unspecified osteoarthritis, unspecified site; E66.9 Obesity, unspecified; Z68.30 Body mass index [BMI] 30.0-30.9, adult; Z86.010 Personal history of colon polyps; Z98.890 Other specified postprocedural states; Z90.710 Acquired absence of both cervix and uterus; Z79.899 Other long term (current) drug therapy; Z79.84 Long term (current) use of oral hypoglycemic drugs; Z87.891 Personal history of nicotine dependence
CPT/HCPCS: 36415; 70450; 71045; 80053; 81003; 82009; 82800; 83735; 84443; 84484; 85025; 85610; 93005; 96361; 96374; 96375; 99285

== ENCOUNTER 2024-02-17 07:08 | Outpatient (OUT) | payer BC, SELFPAY ==
--- OUTSIDE RECORDS SUMMARY | 2024-02-17 07:12 | XMS_ITS | CCD ---
Author Organization [facility] Care Team Providers Care Car Varnisher Name Role Phone Jose Miguel, Sr Evan Lu Primary Care Provider JOSE MIGUEL, SR EVAN Lu Primary Care Unavailable MAGDALENO RIOS Admitting Unavailable MAGDALENO RIOS Attending Unavailable Evan Gillespie Primary Care Physician Orlando Cole Admitting Unavailable [...] Jose Powers MD Primary Care Provider [place] CLINICAL STUDIES SPECIALIST, Mela Unavailable MELA DAILY Attending Unavailable ZAIDA FLORES Attending Unavailable TRACEE BELTRAN Attending Unavailable MELA DAILY Referring Unavailable MELA DALIY Attending Unavailable MELA DAILY Attending Unavailable Medications [...] (PF) injection 2 mg polyethylene glycol 3350 35218 mg powder for oral solution (1 source) [...] daily 0 09/10/2020 Discontinued (Therapy completed) sennosides, intermediate 8.6 mg oral tablet (1 source) Start: [...] : DR EVAN GILLESPIE DAdams Admission #: [id number] Family : Order #: [id number] CLICK HERE TO VIEW EXAM RADIOLOGY REPORT PROCEDURE: MAMMOGRAM SCREENING 3D BILATERAL CAD COMPARISON: MAMMO ANGELICA SCREEN, 07/08/2013. MAMMO ANGELICA SCREEN, 01/08/2009. INDICATIONS: Screening mammography Calculator Name NCI Breast Cancer Risk Assessment Tool 5 Year Breast Cancer Risk Not Reported. Lifetime Breast Cancer Risk Not Reported. Personal Breast Cancer No Personal Ovarian Cancer No Treatments None Family Cancers None LOCATION: [facility] BREAST COMPOSITION: Scattered areas fibroglandular density. FINDINGS: [...] M.D. on 09/08/2022 at 13:34 Normal [facility] Coding Summary.on 06-02-2022 Coding Summary. CD:[id number] G h0bWw+PGhlYWQ+NX5OKZA qY15cnIPnjS4SJ7rGJI5E IAWHENSDSH4CXL5nnDT1Q LjrY8WhvqXr KbpkcHXnRQ68ZEa3YUG6j RhnLEnzwI7ciTXeK7a4Qn GdVP19xS74QNteQYWsImV 3LjZpbjsgbWFy C1thAzGcwVTmOtl+PHRhY mxlIHdpZHRoPScxMDAlJy NgvXtyJD9jAl8wCYXyAOB vbGxhcHNlOiBj j8gmPTMbKYbdLP7aoHqvC 5YeyLH7NEPhk5c9Bu17wP I+VRSvUFS0sPjgWMzbw42 5NuWfc1wgQGG2 pXCaOIkeBRE7F33ry9N6M UDpZLYfXNH1sEF2yP6xfF xcfkkbB7DajPAsEcR5BUZ 1xTQjyY0vqJnr hqzscX6yXdj+Z17ERM3YO NRDCF3CEcb6V2NrAfscdY I+ZD28KUJiMA17oVTwwTZ tj6vizQj9SoUu XCRgUSL0rUolPWkdd7FiD OPzI27wrVPsu6M7GVUloU mvdJJfNpFvbKK4kT5oPOd fyyxdz6ttmkrl Qqjky9dinq48rS04X12iW TvpXMYiZLW1RFQsWSLfnE wmrz6isB3dQm9+NLxmp5l rk7wlkFc7DgLu CAJudtUouNbbUBI8o4XuL o50X8NibTlie3MsCjf6lb 03nTUjc6H4qDP6QOtfAGA exZ4uLQeePxS4 IBDuWwRzrU17cCMiZSpmM k4pdLymnNjbBF4iAPNfxp qdBNPqdE9gSGJrtURbxMi zYI9dDORdysng f062VsEkEJV2QNHxiAGoH 9RpqS1mKzZcQTXiEZYaG4 GgjGQrAWogO608YNkbScJ 0IMYoigYxQ4Zn NRJfpUxkLzK2n7F4Oc1Oc 3CjxgekSZS4IIcdDKO4Gc GhTdEwEmH8T3HaExg4IPS kqPzeXV9wE8Vg AMNlzetusxajuUB4HCLiS LMftE47aYYbBCbzOg4hd4 Y7n428ERMfZBBmeW51Ru1 udDogMTBwdCBU aX5nzoiiw6gziynwAxHzS TZjPQt4YYd4BHBucSxhEb YuWUJ6VbI4YYL9rLTzxN9 mwRngjwfpnP0q Oyc+H70kgY3uHOU2NHL7n qjrWUZfdaTkSE49EH76Y1 RyPjwvdGFibGU+PGRpdiB wiOioUS6lIiIx f0ohg6NgDUrzY9RzCFFoW IrkGjw4GYVsILJ9fPM0qT 4gZGWsKOyky7B6iQA9O1Q lgnSdcg2tl1gc AMXfRWrhT44ikGKsv7W1K IAsjMW7VWCnqPjnFbUjnZ 93Oyc+PILvkVqqb5XgGag rp2zsp9vheIl4 MrNkPCEskjMifUphROU5a 8UjLz58Q39gOUccDETqSY FiRVNaODJaaUqyxq9hfV0 wIi8+PGNvbCB3 zCE4cN5kOFXpKzX2KDjsT 197JrNlaIDlEahem1fmv9 vvkZs1BiGtEDKxxbEggXa aAHO3i8AfPo27 A23lNUamREPzPHQfTGDuG SQvmMrumg2yfM7hXy4+PC 6wp5qnbf47rV58fNR+PHR hFHW5vJmuKDcd RNBxlC8xBCrxRbF9SVPsI iTivR03oZFrCVfuXw9aaE bnnGwbOJ2jTLYbwyjnl81 1KdHfz4byUAMz hUEmZQtpDJW8A05zv9X4U MQzKIBfZYS6bTD5iR3iyL lnbjogbGVmdDsgdmVydGl pLUvwZZknK770 IHRvcDsnPlBhdGllbnQgT kIcVAx2I4OqFyo3YPUsoK euKF6hwTQxIGufRq7hdTt gxKkpLN8aYJTj yabwv702PuBjb7nbHIFjh VVoOThpFEB2T75my0N0OK ZtJFAgNDH8gWX9rR5ilZh nbjogbGVmdDsg dtChhSgcDDnrSFmaR155D HRvcDsnPkJpcnRoIERhdG Z0NR30IG76eJKiy2T3yVX 9L2ZwJXFwtyei jzovpFD0QBOfLHRuyJ74L v1buZziAa0yKBFvJUN3WQ RtxMLeV4LgpY8sXnUnZOR bGTVtV4UcwEXs BYveD228EOmbBdD1EPIfd fEaG4NiFLZqiSlzXgB3n5 Y9Lq2BA8D7FK18BQ88aGA wa7U9yLA5E0Zy JYXdwsenwzhinQX5OHYkM YLffK63Ji0wkHtkJi9fZT AcVRV7EEJdeKKkN7DbxR8 yOiAjMDAwMDAw Q8XsrBXmPAilK404KHqdB fB2TWPgdkEbI9LsGLXcoB qgCcG2f6N2Dz4YOYq8AY4 0MA99qVDiq1N1 pNV0J6KlZBLjkzfbdgbni VG2RKJpEVHsqA47Yb8mmR oyGl1rPDWoGPM5SIVogES mE7FcvF5aDqBa EIWmBDIbN2RpqMKxLFbfJ 349VTkrFuY2GGFjshShP6 WdRFAeiHedGkF0k4J0An8 LEDFyKN56OJC6 qBU6YH27TM55E8HpUzrly GFibGU+PHRhYmxlIHdpZH RoPScxMDAlJyBzdHlsZT0 lDl9qVXWvUZVq vWmuyFMiXpNox9gdAFAqU CdaOE6ksMydG0GriII0DI Gdy0a6Ay16G57gU6DciTZ +LUXcgKB7zFD2 iQ6xEiYfJuP7QFphK802J nDhbVMtQupfd9egj5chaD u4YjI4NRFbugWpnUclVBL 9o0MwNp05Y19r IHdpZHRoPSIxNSUiIHZhb Rlygg9ubN9nYn9+PGNvbC P8eFE8lA3mTxUwAnY5VAz bD836EmPsxEPr Tfvew5efp7hdxEh9SaMqU KJoinOnmHghBDP7n3WdPh 91M3CssEsdt5WgTrx9qn8 6dYFbl0U5zSY9 M7TgPGSozjydfPQhdNpmD X9uOFMheijwPIGucK8vWX HvU0l3ZfZiEiA0UMvdM3B znfD3NXWvqTWg UJqeOPB8B27cn4S8ALZyE WSjZBH7aLC9uV9djUupwm ogbGVmdDsgdmVydGljYWw lUJjuQ851CNPr eYhqPYNmyN7kKOPsoTPib ZumMM1iNAPkhoapHn4HV2 JFLCBMVUNSRVRJQSBNPC9 2ZT27gLYnb4D3 wKZ4U2JuYWCzhyxjhanvn JW4NTSmNCDbhF32lOSwWJ rnCy4gs3K8m764SVLwCEQ weS18Ns7enJfy UWQxtWBVsG8ryvhvo4jef vmmTgIdOTRtPCk7KWz6KB MemAilKxIgTGD6WiE1NDM 0eJKkiK0cxHck sfjpwB0gVgo+MDkvMTEvM Es5EOmdnMI+AQQhBHH9lC qxOBrhVOLevN7gLDMqV2v 5NyZaOtZ4TAaa C7SzDSIzdoroKc47bB5pQ aAhWxW4GVxlT8ChykI8PT KpdJTcXCgnKTN0R33md7L 7TXHpKPAvAFC9 gXG5vU5nfGrywqftxCHxi DsgdmVydGljYWwtYWxpZ2 46IHRvcDsnPjYxIFllYXJ nLL98HO77vIOg j1Z7fFP3R1LhZYXywowga kwqcWK1AXFsQVAffW77pW KsWOluUh9us8L8e418TXD dSDYfuP39Bw6w iMysUOLfnKIDbE7mncqiy 6qtfhmzDvAjCTDcHGi0IG y9JOCvxGxuRjEzEOD6BtN 5KBZ2dNErgG9i uJmmkshdbD2bQfc+RmVtY RqqPO02WT78zSVal2M0nO I3L7EwICYwzqksxgoalOF 8BMXpKLNdmN79 tSZrJAysCi4px5B8c796U TZwTCIbpO17Jm1vwNibGG VfzZSGqM9vveqpl1rivgo gIzAwMDAwMDt0 OIp1IMCfpGjrJmWbPPY5Z hJ9KIF1kZOplO7dpLkwup cdoV5yKjb+X9B0kKE1vRC udDwvdGQ+PC90 ja92L4JdQrubTgv1IGZvV FC7qOB1yS3uSOHeHXgfh8 O8lOD1U0RyvfMzix0hy7y eWNJyVFjkM32l gSEns8M3FQBerRT8OIMyp ZqwAbJjpE48Msu+PGNvbG oob6XjRribm0lmf5phgZf 9IjMwJSIgdmFs vYvuTFW4r2GzFg75M65dY HdpZHRoPSIzMCUiIHZhbG geau1vdB1fFc9+PGNvbCB 8pVA6nZ9pIsXi ZeV7HLphD536HvTsfXGwH ddlf7frv1pwuUe4VtOqJM SiksPeqFfxCEL5i3RvKw6 7W2MhfJewc5Ll Lhr8te66tEBng4E3dKI0K 3BhZGRpbmctbGVmdDogMC 0jAFDyukjiQQDyfN2eGFI mO3e6QpZlMbO3 OUtvS3KmqsI4RJLlzAWrA JPlxKGJdE9qjowqp1hjgq sjUvHsQVInTPk9HMd1ZYS saWduOiBsZWZ0 XcT3IJJ2sXAmcF7udSmdr bdihG5sHon+HRt6w4mksV JoYS4zuZT1SX01YH82rMH vs0B0yWD3T7Mt DMTxxqysvweetEH7ABJfI HMshM27Mr3zsIquPi1uHV MoFCA5QPHcsFCxY5JaoK1 yOiAjMDAwMDAw T9HzdDFiSWwrI197QIxwC nZ9IKPxdsRqH1BqYVWstC opDiK8s2V6Qa8CYD68LV8 8HJ51sPNfy4Q0 pKN7R7UcKQRofkoljkrhw FS3DWXnCTHdfN15Fe6ntR eiBs1sLYQjVFN1LDSmvZP tB8PqbR5rIaFf PAIrNTRuY9YbfIArPXmhD 492NIrwNuG5XFFkkcCoB5 ArKICrwVmyOpK8a0M5Aw8 VTn33TQ64ID12 iOGyx5R8lSX4P6PvAMTgy cljntqmcOL8QUCfFXWjoT 80Dz0scSlkYc5gERDiUTU 6OJKpaFFjZ9On aV7hTbFuYFKuPNWeK2Jwo USwTCvzJ905VOwdXxU2JG LoonFbQ8WlSLWfyUawWxS 6w0A3At1WFOzh eyu1I0LaKkiyiJT+PC90Y USuRB89eXJriEBgu6xiaC z0NzCsLBJoCZA3tUcbWIv oz4TjXWLxP79r bGFw (more content not included)... Normal [facility] Auto Diffon 05-30-2022 Basophils/100 WBC (Bld) 0.6 % Normal 0.0-2.0 [facility] Comment on above: Order Comment: Order Added by Discern Expert. Performed By: #### 7 [id number], [id number], 9265757, 7657911, [id number] #### [facility] [address] [place] [address] Basophils/Leukocytes Auto (Bld) [Pure # fraction] 0.0 E9/L Normal 0.0-0.2 [facility] Comment on above: Order Comment: Order Added by Discern Expert. Performed By: #### 7 [id number], 2089989, 6418985, 7714537, [id number] #### [facility] [address] [place] [address] Eosinophils/100 WBC (Bld) 1.3 % Normal 0.0-8.0 [facility] Comment on above: Order Comment: Order Added by Discern Expert. Performed By: #### 7 [id number], 6793674, 6355634, 0047802, [id number] #### [facility] [address] [place] [address] Eosinophils/Leukocyte s Auto (Bld) [Pure # fraction] 0.1 E9/L Normal 0.0-0.5 [facility] Comment on above: Order Comment: Order Added by Discern Expert. Performed By: #### 7 [id number], 0746144, 1071128, 3811546, [id number] #### [facility] [address] [place] [address] Lymphocytes/100 WBC (Bld) 32.4 % Normal 14.0-50.0 [facility] Comment on above: Order Comment: Order Added by Discern Expert. Performed By: #### 7 [id number], 0266520, 9330340, 4972324, 65380278 #### [facility] [address] [place] [address] Lymphocytes/Leukocyte s Auto (Bld) [Pure # fraction] 2.1 E9/L Normal 1.0-4.0 [facility] Comment on above: Order Comment: Order Added by Discern Expert. Performed By: #### 7 [id number], 3625767, 8886834, 3009566, 15420943 #### [facility] [address] [place] [address] Monocytes/100 WBC (Bld) 7.6 % Normal 4.0-14.0 [facility] Comment on above: Order Comment: Order Added by Discern Expert. Performed By: #### 7 [id number], 5505264, 3610593, 1673741, 15565281 #### [facility] [address] [place] [address] Monocytes/Leukocytes Auto (Bld) [Pure # fraction] 0.5 E9/L Normal 0.2-1.0 [facility] Comment on above: Order Comment: Order Added by Yosvany Expert. Performed By: #### 7 [id number], 0516098, 9348457, 9499079, [id number] #### [facility] [address] [place] [address] Neutrophils/100 WBC (Bld) 58.1 % Normal 36.0-75.0 [facility] Comment on above: Order Comment: Order Added by Discern Expert. Performed By: #### 7 [id number], 7062708, 5754534, 6055695, 03733252 #### [facility] [address] [place] [address] Neutrophils/Leukocyte s Auto (Bld) [Pure # fraction] 3.7 E9/L Normal 2.0-7.5 [facility] Comment on above: Order Comment: Order Added by Yosvany Expert. Performed By: #### 7 [id number], 8571734, 5413279, 4785957, 04066383 #### [facility] [address] [place] [address] BMPon 05-30-2022 Anion gap [Moles/Vol] 11 mmol/L Normal 6-16 [facility] Comment on above: Performed By: #### 7 [id number], 1181661, 1067625, 7385649, 53907604 #### [facility] [address] [place] [address] Calcium [Mass/Vol] 9.1 mg/dL Normal 8.9-11.1 [facility] Comment on above: Performed By: #### 7 [id number], 7165381, 5592163, 2057419, 32953133 #### [facility] [address] [place] [address] Chloride [Moles/Vol] 102 mmol/L Normal 101-111 [facility] Comment on above: Performed By: #### 7 [id number], 4597839, 7461831, 7280586, 27308708 #### [facility] [address] [place] [address] CO2 [Moles/Vol] 28 mmol/L Normal 21-[address] [facility] Comment on above: Performed By: #### 7 [id number], 8135028, 3633869, 9163084, 66628716 #### [facility] [address] [place] [address] Creatinine [Mass/Vol] 0.7 mg/dL Normal 0.5-1.3 [facility] Comment on above: Performed By: #### 7 04389290, 8425951, 8565694, 7688089, 07013513 #### [facility] [address] [place] [address] Glucose [Mass/Vol] 115 mg/dL Normal 55-199 [facility] Comment on above: Result Comment: If t his glucose result represents a fasting glucose, interpretation should refer to the following reference range: 55-99 mg/dL Performed By: #### 7 [id number], 1907070, 4130654, 0821885, 83197861 #### [facility] [address] [place] [address] Potassium [Moles/Vol] 4.1 mmol/L Normal 3.5-5.3 [facility] Comment on above: Performed By: #### 7 [id number], 0866535, 0476307, 2547253, 16807893 #### [facility] [address] [place] [address] Sodium [Moles/Vol] 137 mmol/L Normal 135-145 [facility] Comment on above: Performed By: #### 7 [id number], 4617416, 1359233, 6078240, 50913938 #### [facility] [address] [place] [address] Urea nitrogen [Mass/Vol] 14 mg/dL Normal 5-21 [facility] Comment on above: Performed By: #### 7 45843966, 5772188, 0860414, 4430448, 91456015 #### [facility] [address] [place] [address] Urea nitrogen/Creatinine [Mass ratio] 20 No Units Normal 10-20 [facility] Comment on above: Performed By: #### 7 07943671, 4030774, 2129416, 8300422, 08912402 #### [facility] [address] [place] [address] CBC w/ Auto Diffon Erythrocyte distribution width (RBC) [Ratio] 13.7 % Normal 10.9-14.2 [facility] Comment on above: Performed By: #### 7 [id number], 2649811, 9995547, 8220068, 59823853 #### [facility] [address] [place] [address] Hematocrit (Bld) [Volume fraction] 41.6 % Normal 34.0-46.0 [facility] Comment on above: Performed By: #### 7 [id number], 1675208, 2502987, 9551266, 92212666 #### [facility] [address] [place] [address] Hemoglobin (Bld) [Mass/Vol] 14.7 g/dL Normal 12.0-16.0 [facility] Comment on above: Performed By: #### 7 [id number], 8689154, 0460060, 7750940, 11893686 #### [facility] [address] [place] [address] MCH (RBC) [Entitic mass] 32.5 pg Normal 27.0-34.0 [facility] Comment on above: Performed By: #### 7 32265129, 3028446, 6303049, 1391532, 95249503 #### [facility] [address] [id number] MCHC (RBC) [Mass/Vol] 35.4 g/dL Normal 31.4-36.0 [facility] Comment on above: Performed By: #### 7 13824957, 3172842, 8292634, 3652771, 56918346 #### [facility] [address] [place] [address] MCV (RBC) [Entitic vol] 91.8 fL Normal 80.0-100.0 [facility] Comment on above: Performed By: #### 7 01446669, 0702342, 2794884, 6101274, 73644563 #### [facility] [address] [place] [address] Platelet mean volume (Bld) [Entitic vol] 9.3 fL Normal 6.4-10.8 [facility] Comment on above: Performed By: #### 7 02159650, 8805603, 9731528, 1734960, 87615409 #### [facility] [address] [place] [address] Platelets (Bld) [#/Vol] 181.0 E9/L Normal 150.0-500.0 [facility] Comment on above: Performed By: #### 7 59022249, 5632737, 7927658, 2665632, 53124691 #### [facility] [address] [place] [address] RBC (Bld) [#/Vol] 4.5 E12/L Normal 4.3-5.9 [facility] Comment on above: Performed By: #### 7 [id number], 7628927, 6051564, 0124264, 87960801 #### [facility] [address] [place] [address] WBC corrected for nucl RBC Auto (Bld) [#/Vol] 6.4 E9/L Normal 4.0-11.0 [facility] Comment on above: Performed By: #### 7 74013215, 4511618, 8123767, 1438740, 39317188 #### [facility] [address] [place] [address] CHEMISTRYOrdered By: SYSTEM SYSTEM on 05-30-2022 Anion gap [Moles/Vol] 11 mmol/L Normal 6 - 16 mEq/L [facility] Remisol Calcium [Mass/Vol] 9.1 mg/dL Normal 8.9 - 11. 1 mg/dL FT Remisol Chloride [Moles/Vol] 102 mmol/L Normal 101 [...] rate/Area] mL/min/1.73 m2 Normal >=59mL/min/1. 73 m2 [facility] Chem S Glucose [Mass/Vol] 115 mg/dL Normal [...] (Bld) [Mass fraction] 6.2 % High <=5.9% [facility] ChemAutoSS Consent for Treatmenton Consent for Treatment [id number] .[id number]:127 Normal [facility] HEMATOLOGYOrdered By: SYSTEM SYSTEM on [...] 3.7 E9/L Normal 2.0 - 7.5 E9/L [facility] HemeAutoSS HEMATOLOGYOrdered By: Boaz Topete on 05-30-2022 Erythrocyte distribution width (RBC) [Ratio] 13.7 % Normal 10.9 - 14.2 % [facility] HemeAutoSS Hematocrit (Bld) [Volume fraction] 41.6 % [...] Normal 4.0 - 11.0 E9/L [facility] HemeAutoSS AwkD2hla 05-30-2022 HbA1c (Bld) [Mass fraction] 6.2 % High <=5.9 [facility] Comment on above: Performed By: #### 7 [id number], 2470326, 7442139, 7468030, 71002239 #### [facility] [address] [place] [address] XR Chest 2 Viewson 2 XR Chest [...] by: JODEE Technologist: CC Normal [facility] eGFRon 05-30-2022 GFR/1.73 sq M.predicted among blacks MDRD (S/P/Bld) [Vol rate/Area] mL/min/{1.73_m2} Normal >=59 [facility] Comment on above: Order Comment: Order added by Discern Expert. Result Comment: eGFR is race adjusted. AA=. Performed By: #### 7 [id number], 3022211, 4881544, 9855350, 40840486 #### [facility] [address] [place] [address] GFR/1.73 sq M.predicted among non-blacks MDRD (S/P/Bld) [Vol rate/Area] mL/min/{1.73_m2} Normal >=59 [facility] Comment on above: Order Comment: Order added by Discern Expert. Result Comment: Cat Skinner arnulfo kidney disease could be indicated at eGFR's of less than 60 mL/min/1.73m2. Kidney failure is indicated at less than 15 mL/min/1.73m2. Performed By: #### 7 [id number], 0449167, 1033344, 3489937, 05547712 #### [facility] [address] [place] [address] Physician Orderon 05-08-2022 Physician Order [id number] .[id number]:127 Normal [facility] CBC AUTO DIFFon 11-11-2021 BASO # 0.0 103/ul Normal 0.0-0.1 [facility] Comment on above: Performed By: #### C BC #### [facility] [address] [place] [address] Dr. Farhat Mcneil Basophils/100 WBC (Bld) 0.6 % Normal 0.2-2.0 [facility] Comment on above: Performed By: #### C BC #### [facility] [address] [place] [address] Dr. Farhat Mcneil EO # 0.1 103/ul Normal 0.0-0.7 [facility] Comment on above: Performed By: #### C BC #### [facility] [address] [place] [address] Dr. Farhat Mcneil Eosinophils/100 WBC (Bld) 1.1 % Normal 0.9-7.0 [facility] Comment on above: Performed By: #### C BC #### [facility] [address] [place] [address] Dr. Farhat Mcneil Erythrocyte distribution width (RBC) [Ratio] 12.3 % Normal 11.0-15.0 [facility] Comment on above: Performed By: #### C BC #### [facility] [address] [place] [address] Dr. Farhat Mcneil Hematocrit (Bld) [Volume fraction] 43.6 % Normal 36.0-48.0 [facility] Comment on above: Performed By: #### C BC #### [facility] [address] [place] [address] Dr. Farhat Mcneil Hemoglobin (Bld) [Mass/Vol] 15.0 g/dL Normal 12.0-16.0 [facility] Comment on above: Performed By: #### C BC #### [facility] [address] [place] [address] Dr. Farhat Mcneil IG # 0.02 10e3/ul Normal 0.00-0.03 [facility] Comment on above: Performed By: #### C BC #### [facility] [address] [place] [address] Dr. Farhat Mcneil IG % 0.3 % Normal 0.0-0.5 [facility] Comment on above: Performed By: #### C BC #### [facility] [address] [place] [address] Dr. Farhat Mcneil LYMPH # 2.2 103/ul Normal 1.2-3.8 [facility] Comment on above: Performed By: #### C BC #### [facility] [address] [place] [address] Dr. Farhat Mcneil Lymphocytes/100 WBC (Bld) 31.0 % Normal 20.5-60.0 [facility] Comment on above: Performed By: #### C BC #### [facility] [address] [place] [address] Dr. Farhat Mcneil MANUAL DIFF REQ NO Normal [facility] Comment on above: Performed By: #### C BC #### [facility] [address] [place] [address] Dr. Farhat Mcneil MCH (RBC) [Entitic mass] 31.5 pg Normal 26.7-34.0 [facility] Comment on above: Performed By: #### C BC #### [facility] [address] [place] [address] Dr. Farhat Mcneil MCHC (RBC) [Mass/Vol] 34.4 g/dL Normal 29.9-35.2 [facility] Comment on above: Performed By: #### C BC #### [facility] [address] [place] [address] Dr. Farhat Mcneil MCV (RBC) [Entitic vol] 91.6 fL Normal 81.0-99.0 [facility] Comment on above: Performed By: #### C BC #### [facility] [address] [place] [address] Dr. Farhat Mcneil MONO # 0.5 103/ul Normal 0.3-0.8 [facility] Comment on above: Performed By: #### C BC #### [facility] [address] [place] [address] Dr. Farhat Mcneil Monocytes/100 WBC (Bld) 6.3 % Normal 1.7-12.0 [facility] Comment on above: Performed By: #### C BC #### [facility] [address] [place] [address] Dr. Farhat Mcneil NEUT # 4.3 103/ul Normal 1.4-6.5 [facility] Comment on above: Performed By: #### C BC #### [facility] [address] [place] [address] Dr. Farhat Mcneil Neutrophils/100 WBC (Bld) 60.7 % Normal 43.0-75.0 [facility] Comment on above: Performed By: #### C BC #### [facility] [address] [place] [address] Dr. Farhat Mcneil Platelet mean volume (Bld) [Entitic vol] 10.6 fL Normal 9.5-13.5 [facility] Comment on above: Performed By: #### C BC #### [facility] [address] [address] [address] Farhat Mcneil PLT 187 103/ul Normal 150-450 [facility] Comment on above: Performed By: #### C BC #### [facility] [address] [address] [address] Farhat Mcneil RBC 4.76 106/ul Normal 4.20-5.40 [facility] Comment on above: Performed By: #### C BC #### [facility] [address] [place] [address] Dr. Farhat Mcneil WBC 7.1 103/ul Normal 4.0-11.0 [facility] Comment on above: Performed By: #### C BC #### [facility] [address] [place] [address] Dr. Farhat Mcneil LIPID PROFILEon 11-11-2021 CHOL-HDL RATIO NORM SEE BELOW Normal [facility] Comment on above: Result Comment: 3.3 - 4.4 LOW RISK 4.4 - 7.1 AVERAGE RISK 7.1 - 11.0 MODERATE RISK >11.0 HIGH RISK Performed By: #### L IPID, T4, CMP, TSH #### [facility] [address] [place] [address] Dr. Farhat Mcneil Cholesterol [Mass/Vol] 286 mg/dL Critically high <=200 [facility] Comment on above: Performed By: #### L IPID, T4, CMP, TSH #### [facility] [address] [place] [address] Dr. Farhat Mcneil Cholesterol in HDL [Mass/Vol] 44 mg/dL Normal [facility] Comment on above: Performed By: #### L IPID, T4, CMP, TSH #### [facility] [address] [place] [address] Dr. Farhat Mcneil Cholesterol in LDL [Mass/Vol] 187.2 mg/dL Normal [facility] Comment on above: Performed By: #### L IPID, T4, CMP, TSH #### [facility] [address] [address] [address] Farhat Mcneil Cholesterol.total/Cho lesterol in HDL [Mass ratio] 6.5 {ratio} Normal [facility] Comment on above: Performed By: #### L IPID, T4, CMP, TSH #### [facility] [address] [address] [address] Farhat Mcneil HDL NORMAL > or = 60 mg/dl - LO W CARDIOVASCULAR RISK <40 mg/dl - HIGH CARDIOVASCULAR RISK Normal [facility] Comment on above: Performed By: #### L IPID, T4, CMP, TSH #### [facility] [address] [address] [address] Farhat Mcneil LDL CALC NORMAL SEE BELOW Normal [facility] Comment on above: Result Comment: <100 mg/dl OPTIMAL 100 - 129 mg/dl NEAR OR ABOVE OPTIMAL 130 - 159 mg/dl BORDERLINE HIGH 160 - 189 mg/dl HIGH >190 mg/dl VERY HIGH Performed By: #### L IPID, T4, CMP, TSH #### [facility] [address] [address] [address] Farhat Mcneil Triglyceride [Mass/Vol] 274 mg/dL Critically high <=150 [facility] Comment on above: Performed By: #### L IPID, T4, CMP, TSH #### [facility] [address] [address] [address] Farhat Mcneil VLDL CALC 54.8 mg/dL Normal [facility] Comment on above: Performed By: #### L IPID, T4, CMP, TSH #### [facility] [address] [address] [address] Farhat Mcneil PROF 14(COMP METB)on 022 Albumin [Mass/Vol] 3.8 g/dL Normal 3.5-5.0 [facility] Comment on above: Performed By: #### L IPID, T4, CMP, TSH #### [facility] [address] [address] [address] Farhat Mcneil Albumin/Globulin [Mass ratio] 1.0 {ratio} Normal [facility] Comment on above: Performed By: #### L IPID, T4, CMP, TSH #### [facility] [address] [address] [address] Farhat Mcneil ALP [Catalytic activity/Vol] 102 U/L Normal 38-126 [facility] Comment on above: Performed By: #### L IPID, T4, CMP, TSH #### [facility] [address] [address] [address] Farhat Mcneil ALT [Catalytic activity/Vol] 46 U/L Normal 9-52 [facility] Comment on above: Performed By: #### L IPID, T4, CMP, TSH #### [facility] [address] [place] [address] Dr. Farhat Mcneil Anion gap [Moles/Vol] 9.2 mmol/L Normal [facility] Comment on above: Performed By: #### L IPID, T4, CMP, TSH #### [facility] [address] [place] [address] Dr. Farhat Mcneil AST [Catalytic activity/Vol] 21 U/L Normal 14-36 [facility] Comment on above: Performed By: #### L IPID, T4, CMP, TSH #### [facility] [address] [place] [address] Dr. Farhat Mcneil Bilirubin [Mass/Vol] 0.3 mg/dL Normal 0.2-1.3 [facility] Comment on above: Performed By: #### L IPID, T4, CMP, TSH #### [facility] [address] [place] [address] Dr. Farhat Mcneil Calcium [Mass/Vol] 9.0 mg/dL Normal 8.4-10.2 [facility] Comment on above: Performed By: #### L IPID, T4, CMP, TSH #### [facility] [address] [place] [address] Dr. Farhat Mcneil Chloride [Moles/Vol] 103 mmol/L Normal 98-107 [facility] Comment on above: Performed By: #### L IPID, T4, CMP, TSH #### [facility] [address] [address] [address] Farhat Mcneil CO2 [Moles/Vol] 30.7 mmol/L Critically high 22.0-30.0 [facility] Comment on above: Performed By: #### L IPID, T4, CMP, TSH #### [facility] [address] [address] [address] Farhat Mcneil Creatinine [Mass/Vol] 0.75 mg/dL Normal 0.52-1.04 [facility] Comment on above: Performed By: #### L IPID, T4, CMP, TSH #### [facility] [address] [address] [address] Farhat Mcneil EGFR-AF IVORIAN >60 Normal >=60 [facility] Comment on above: Performed By: #### L IPID, T4, CMP, TSH #### [facility] [address] [place] [address] Dr. Farhat Mcneil EGFR-NON AF IVORIAN >60 Normal >=60 [facility] Comment on above: Performed By: #### L IPID, T4, CMP, TSH #### [facility] [address] [address] [address] Farhat Mcneil Globulin (S) [Mass/Vol] 3.7 g/dL Normal [facility] Comment on above: Performed By: #### L IPID, T4, CMP, TSH #### [facility] [address] [place] [address] Dr. Farhat Mcneil Glucose [Mass/Vol] 126 mg/dL Critically high 74-106 [facility] Comment on above: Performed By: #### L IPID, T4, CMP, TSH #### [facility] [address] [address] [address] Farhat Mcneil Potassium [Moles/Vol] 3.9 mmol/L Normal 3.4-5.0 [facility] Comment on above: Performed By: #### L IPID, T4, CMP, TSH #### [facility] [address] [address] [address] Farhat Mcneil Protein [Mass/Vol] 7.5 g/dL Normal 6.1-8.2 [facility] Comment on above: Performed By: #### L IPID, T4, CMP, TSH #### [facility] [address] [address] [address] Farhat Mcneil Sodium [Moles/Vol] 139 mmol/L Normal 137-145 [facility] Comment on above: Performed By: #### L IPID, T4, CMP, TSH #### [facility] [address] [place] [address] Dr. Farhat Mcneil Urea nitrogen [Mass/Vol] 11.0 mg/dL Normal 7.0-17.0 [facility] Comment on above: Performed By: #### L IPID, T4, CMP, TSH #### [facility] [address] [place] [address] Dr. Farhat Mcneil Urea nitrogen/Creatinine [Mass ratio] 14.7 mg/mg Normal [facility] Comment on above: Performed By: #### L IPID, T4, CMP, TSH #### [facility] [address] [place] [address] Dr. Farhat Mcneil T4on 11-11-2021 T4 [Mass/Vol] 7.60 ug/dL Normal 5.53-11.00 [facility] Comment on above: Performed By: #### L IPID, T4, CMP, TSH #### [facility] [address] [place] [address] Dr. Farhat Mcneil TSHon 11-11-2021 TSH 2.278 uIU/mL Normal 0.470-4.680 [facility] Comment on above: Performed By: #### L IPID, T4, CMP, TSH #### [facility] [address] [place] [address] Dr. Farhat Mcneil TSH RANGE SEE BELOW Normal [facility] Comment on above: Result Comment: <0.3 4 UIU/ml HYPERTHYROID 0.34-5.60 UIU/ml EUTHYROID >5.60 UIU/ml HYPOTHYROID Performed By: #### L IPID, T4, CMP, TSH #### [facility] [address] [place] [address] Dr. Farhat Mcneil MRI Shoulder w/o + [...] by Josh Salguero on 10/21/2021 0956 Normal [facility] Coding Summary.on 10-05-2021 Coding Summary. CD:[id number] G h0bWw+PGhlYWQ+MA5PQFC aB06esRPoqM5EM9wKPU3B NPPROWHLBU4DDQ5neDA8E QlwS6CeusOz YyojqOSnTH22EVl6DLT6s XrfJUrmtN2osLZkM8r9Gn UfZT37oI69AGxiLWWzZfN 3LjZpbjsgbWFy I3yvPxXhwWZsQid+PHRhY mxlIHdpZHRoPScxMDAlJy SxdTkrJQ5wTs7qGOKbAIM vbGxhcHNlOiBj v2cwDHNfPAqpSA8itJiiB 0UmdMT6WSJsb9z5Hp99zT I+OFXlCFM0xIjiBGqzr60 2NmJql7nhLOC2 qVZnPNacDZL7F25pa4Q6C AEpYQQoTVG9yIC4rZ0ryK btofuxG1LpiIQkFsM6YBY 0xASmwS4owHep wvbffY8tKty+V02SAQ4WI HGMOX8EMzs2F0RuGldhvN I+VI37WAAvGV23vDIlfVM xe4svzBu5OpEf WMYdKUZ6hItdSOmjt8TqK IPlF74obWLcc1Y7FNQlxT scbFFoRdIuaHU5tZ3wUTt kmmpmh9yhrvca Bodis2xqus38wW21I37wH CalBUVhSUC0MNGxZMOmoM oire4xaS5sJv6+SWosg2b oj4ejbJl7DqKn LPGymdOdwLrqUXE5n5QuC e08M7DczIkgq6OhTyq3ra 75xHDsx7G6vYU4KOjyUGN xjP0cBQkuDzC3 KOHpUkPppR08mCCgFHmkC z7naFypnQebYR3hQUCpof kiAILsdM1wITWpqYLssZp yRW1vORUnvvia s394ZxRjWRJ7IWUsvUScS 4EntQ3eQiFwIUDeTJRzF2 ZtgUKmEIpdQ121MYibZnM 6CLYzguQeA0Rk OLBajBirReW3w3Z3Rk5Tq 5QaslfqOWU5WPpkBQLcUh I4HbBvPiS7T2MoPzn9XOR ecFonTL7hB2Oz RWIjqnjzsqqgsTE0LKPjY UPeqX21xRScUSpjTx2rg4 K5h249UOAaRPQiiC47Mp1 udDogMTBwdCBU xI3nknmnl9gamludQiPgB CHbZBb8EXi1TTXvvXvtCy EsXRF9KmC7NGI6oVFdgN2 xtIentenvwR0u Oyc+I84xoQ3hYQD7BBH6m znjCVLcupDyJN12GN08N5 RyPjwvdGFibGU+PGRpdiB bmLowOX5mZhCl c2yfy7CfCLmtS4IiITAgW CyfFuy5MBOwIAM6cOJ7eR 2uIDSuNHpjc1O3wYZ9Y7M txvKruw6ka6mv EJOwZBdzZ85ylRTeb2O3C ZVeqJF4WSUmbOpwIwZlvI 93Oyc+AWBvoKrht0CaQyr pd8yuh3lkxQp7 JrTiCUUyxjMlsXihDZP7i 3CkRl25T31fBSrcKRSdKB XvFQTeXCMkpTutjz5bpQ3 wIi8+PGNvbCB3 rGL3sL1bBAOjLzL4LGmjI 615JaQcsXKjPbnxg2jxs0 mhzTp9MyCsTLUswdWbvTr rZDF7h9JmSv83 A70fYBjqHXByJJJrZNZgR FCkyAvrxp1ofG2pIm7+PC 0tv0arzm39oX58xNQ+PHR bUVQ2uKncLDgy UXIyvQ4lVBheWwS4KLHxZ tTtmQ82pAEtFRjtTu0kfC yyuLleZL2aOQSjlwbdg54 3UpTnd1xsDGPi zXIlUQmjCUV7E13rz2T7U CXjBKYxJYQ1nHS8zX6pjC lnbjogbGVmdDsgdmVydGl wVOmkZVwcH964 IHRvcDsnPlBhdGllbnQgT mHaTQe7V3MqNro7WGXccK veUF3owEXpNFddIe8xxRe fpCuwUL7nMEZc dmfmi713NlVhq3oyDZWsb KKiSIopMFD7T16xu3Z7YJ GaROYsZDQ9bSS6hX9jvLr nbjogbGVmdDsg soWlrHoiZJoxYGyoI709Z HRvcDsnPkJpcnRoIERhdG A7RG46GN72gRWnu2D2uBU 1G8TpBULlbzcz qbcqxWK3YRBgZUVihG39J u5ecPsgDq5bWABhDYC9LW AloSWpC2OkiG2tJwLlXTS lBMJcL4NjfJWo RVfuC503NTqoLlX4PYSyn yShM1XlJQYumFweJgQ2m7 Y5Uq5UN9X6YC64CB21dXU rl1B8jIE1K1Bm VKTiybhruetllAL4NYJhI XMizI91Nn9nsIxiDy5gHR VbWHZ7IQJbhIDtR6XnbY7 yOiAjMDAwMDAw A6EkfTRpVEnaU527CFvrR zC7FOPvndUeZ3IqQCElpY iaNuV4p1S0Wc2CWGm9WA6 5DA61pGNkg7K0 jGT5V7ObFGPspjfajnlsp MV0ANJcRCUbfG84Pv5osN igDk6xMCZjPOA5LRFuwDX pB0TniT0jYhEs AXMoIMEeU9NgpYOtPPmmX 423KJycRzO2RADewmBnC5 YsLTNmlXzfIyQ1m9R3Gn8 IGTTiTY75RKO2 hDJ2XB95KO09V8ZrTyjbp GFibGU+PHRhYmxlIHdpZH RoPScxMDAlJyBzdHlsZT0 dWi2mZPHwAQLx rGuzdXUxHzFad4mmZFPcH RaaRI8zcHiyE6ZohMP2GD Vyp0a3Nl40D57aD8UqdNY +ECVfcIN2mUH3 sO1qFpLgFsG8ZOawS184W iPbeCGtZxhwe1fwb2fihC s1FhS2CCJadsJfiTigTOD 0u4BdKx24Y76u IHdpZHRoPSIxNSUiIHZhb Skhyw1emD0uTo7+PGNvbC O3yMX5uX0vOwNeXxN5MZo yE793SzGjdRBa Aeywr3jwh5yabBj6HcDuS ADndqOexQgmHTN8d4ZqPn 17U7YusSaeq9DcKsn3fe1 4qOVmy2Y3wOY1 E5XdNMQxqykfkAPfnJmeK H2mJWZkyfwtSPDhvZ0lOM ZzA7l9XdCyZvF8RTsdC7M rlaC9TXCxsSCu XDdfKFD5T36am0L1FKSoV RYvXPL6qWR2xZ0woFwhtm ogbGVmdDsgdmVydGljYWw hOMzzL597HPTt cQsuTZGbiX7xBOWxoBFwt RfxVL8tZCBcnmzbDs6LT4 JFLCBMVUNSRVRJQSBNPC9 7CF33dJXhq1L3 rKF0R6UqQGMtfoaccesfx DJ2OGLhHGMljY12wXIlHD leSl0lu8E0j785NBNnVMQ omO88Cc8juTvh VPMfuZRQoV3hjoskp3gvt wqtEdUxFHXnKLw4NTn1VZ WorTvhAyDaGYQ9MpS6MSQ 2iYNqzU9prTix pwbwkI5dRaz+MDkvMTEvM Rg9RIsztNP+FWAjSIC6kI zmYNdqEOGsiT3kNIMfX6j 2DdSbVhB6XMya W1CgTRHnzbjpCe51gK6eE qTpSbT0IObcR3LwikE3LS MsuRQpGJlsPMH1H05zd7S 6YLXlLOKrUUA9 fTT6uK5mhDlqkyitlMKwk DsgdmVydGljYWwtYWxpZ2 46IHRvcDsnPjYwIFllYXJ xSX23SX28oJJz g3V2sMG3V7XnTAGqqnigp acqfOP5CYKzQNNkjS90hX HzMFkqUu7ry7L3o736MYB qXQLahU48Tq1m rBjuNDGrfSTPuD8uerfgi 9wnnyriLmRnNWViHNr5GB z9ALKhzUbsRxLmCPE1PsE 8ZGY6fCTmqT2h yAbfstdjxL9hJtl+RmVtY UweXC82AX79bJElg4U7uG X5A9JuKUPycywujharmQG 2GQJoSLRfhO86 kQWqPRgsZr4bo8I6i702R IRnQQHkhB04Du4tyJtfCW NwrCRHwB7xnuuxt5ukphu gIzAwMDAwMDt0 TTp8XNHsvXmpVtEgWDC8D eF4EXL2dMAldB0cjElyrf laxE7rOpm+H7M8jNG9fQB udDwvdGQ+PC90 el72L0HrMjrkBsq4SCVrX DT5xLE5mW5hFVPpTFnzu2 A6pAV5F7WmroTpap9gf8f qWQTrVDwzI91e dRKow1O0MFQckHE6EPPda FynYvXinM95Ish+PGNvbG bfc9KoXydxd5lmg7owxUn 9IjMwJSIgdmFs zAwuVLQ9s0PgQx79E89gT HdpZHRoPSIzMCUiIHZhbG yabb4pbN8dSy0+PGNvbCB 1wYJ3hO7zVpOw ItJ1LMkoK533MeIciJDiU wrmx6owg4ssaSm8CyDpYV CdrpVgnCpjQHY3h1HoAe3 6K4DfaMaks0Er Jpk9zg61wXUcy2A1iBH7E 3BhZGRpbmctbGVmdDogMC 3zWKZjchpeUESfaA9gQFV vN4m8WyRlNpT4 JZyfD7ApgcV5EILalLYmT CElzEUZmY8gukjmv8tyma qpBqIaCHPiCIr6LTy4GTA saWduOiBsZWZ0 BmH7FEQ6gSVnhP9biOsua rnibF1mGdk+OSu7t4prrE HcIZ3qaXF0GI55MJ34fUC lm0Q4fQZ7P0Wz XXDfzejwycnztKL7VKPtJ DCvjG27Cd3ujIjjGl6wSM EzRXY4EICvpRHjD1YrpU8 yOiAjMDAwMDAw O3WbmSUiRIkhH316XExfQ oK5DPVbffBmR1PyYLZwiG avQpK1z0U3Bt5EZU11UW9 4JV40lABgc2W1 pOO7W1LtQSErfammehheo OX3NYOrLDHaxX58Ef7kaY vsFu8dOYEyTGQ7QVWppEP oX4TlgP9lKpPk DTZaJHHpV7IpgUMjYNznZ 256ULopMjA4TPXkspYrV2 PuUOOitQkfUhC4j8M3Ef7 AYp05TM85OA28 xAWcq7K3uQY6T3JgVIIsu siqcfjtwXL1EIBxOPHzgG 43Ni2umOtdRg1sFPCaGLD 6VLLudIJzQ8Yg dF8qTwWoMTWjZDGkK0Imp VOzWTgfO462BXyeCmG9UC JotkPdA4XrXLKadBvyOjI 1u1R8Nx6ADUoz kik1L6JnIfyymZM+PC90Y ZXjOX04vTMuwTGml5asgN v2UvDcIEGeBAN8qOhnHOp pi2FzDAJlC84v bGFw (more content not included)... Normal [facility] Consent for Treatmenton 12-3 Consent for Treatment [id number] .00CD:127 Normal [facility] NM Bone Scan 3 Phaseon [...] Post Administration (hrs): 3 Normal [facility] Physician Orderon 09-12-2021 Physician Order [id number]# 1.00CD:127 Normal [facility] MRI Shoulder w/o Lefton 12-0 MRI Shoulder w/o Left HISTORY: Pain and [...] by Jackson Ma on 08/28/2021 0949 Normal [facility] Specialist FLUORO FOR SURGICAL PROCEDUR ESon [...] MD 09/11/20 Final result Normal [facility] Rory, Chpo Incoming Radiant Results From [employer]acs - 09/11/2020 5:09 PM EST FLUORO FOR SURGICAL PROCEDURES : 09/11/2020 3:53 PM CLINICAL HISTORY: Lumbar Diskectomy . COMPARISON: None available. Intraoperative fluoroscopy was provided for Dr. Santosh gonzalez. A total of 1 seconds of fluoroscopy was used, with 4 fluoroscopic stills saved. No diagnostic images were obtained. Please see Dr. Rios surgical notes for completeness. [facility] FLUORO FOR SURGICAL PROCEDURES : 09/11/2020 3:53 PM CLINICAL HISTORY: Lumbar Diskectomy . COMPARISON: None available. Intraoperative fluoroscopy was provided for Dr. Santosh gonzalez. A total of 1 seconds of fluoroscopy was used, with 4 fluoroscopic stills saved. No diagnostic images were obtained. Please see Dr. Rios surgical notes for completeness. [facility] Glucoseon 09-11-2020 Glucose [Mass/Vol] 145 mg/dL Critically high 60-115 M [facility] Comment on above: Performed By: #### P GLU #### [facility] [address] [place] [address] POC Performed on ACCU-CHEK Normal [facility] Comment on above: Performed By: #### P GLU #### [facility] [address] [place] [address] Glucose [Mass/Vol] 145 mg/dL High 60 - 115 mg/dl [place], [place] Interpretation and review of laboratory results Abnormal [place], [place] Performed on ACCU-CHEK [place] Glucose [Mass/Vol] 131 mg/dL Critically high 60-115 M [facility] Comment on above: Performed By: #### P GLU #### [facility] [address] [facility] [place] [address] POC Performed on ACCU-CHEK Normal [facility] Comment on above: Performed By: #### P GLU #### [facility] [address] [facility] [place] [address] Glucose [Mass/Vol] 131 mg/dL High 60 - 115 mg/dl [place] Interpretation and review of laboratory results Abnormal [place] Performed on ACCU-CHEK [place] Surgical Specimenon 09-11-20 Surgical Specimen [facility] [address] [place] [address] FINAL SURGICAL PATHOLOGY REPORT Patient Name: JORDY DUNNE Accession No: [id number] Age Sex: 1960 Location: [facility] [id number] Account No: [id number] Collected: 09/11/2020 Med Rec No: [id number] Received: 09/12/2020 Attend Phys: MAGDALENO RIOS Completed: [...] one cassette after brief decalcification. ALIFA/ALIFA CPT: 02639 X1 12934 X1 EVNKATESH COTTON M.D. 09/13/2020 Electronically signed out by Page 1 of 1 [facility] Comment on above: Performed By: #### S UR #### [facility] [address] [place] [address] XR CHEST PORTABLEon 09-11-20 20 INR Coag (Bld) [Relative time] NO ACUTE ACTIVE CARDIOPULMONARY PROCESS [place] EXAMINATION: CHEST PORTABLE VIEW CLINICAL HISTORY: Back pain COMPARISONS: None FINDINGS: Single views of the chest is submitted. The cardiac silhouette is enlarged. Pulmonary vascular unremarkable. Right sided trachea. No focal infiltrates. No Pneumothoraces. [place], [place] Rory, Chpo Incoming Radiant Results From [employer] - 09/11/2020 7:58 AM EST EXAMINATION: CHEST PORTABLE VIEW CLINICAL HISTORY: Back pain COMPARISONS: None FINDINGS: Single views of the chest is submitted. The cardiac silhouette is enlarged. Pulmonary vascular unremarkable. Right sided trachea. No focal infiltrates. No Pneumothoraces. IMPRESSION: NO ACUTE ACTIVE CARDIOPULMONARY PROCESS [place] XR LUMBAR SPINE (MIN 4 VIEWS )on 09-11-2020 Rory, Chpo Incoming Radiant Results From [employer] - 09/11/2020 10:22 AM EST EXAMINATION: XR [...] show degenerative changes.. IMPRESSION NO ACUTE FRACTURE. [place] EXAMINATION: XR LUMBAR SPINE (MIN 4 [...] show degenerative changes.. IMPRESSION NO ACUTE FRACTURE. [place] APTTon 09-10-2020 aPTT Coag (Bld) [Time] 30.5 s [place] Comment on above: Effective 07/25/2020: Heparin Therapeutic Range: 64.0 98.0 seconds. CBC Auto Differentialon 08-22 Basophils (Bld) [#/Vol] 0.1 10*3/uL 0 - 0.2 K/uL [place] Basophils/100 WBC (Bld) 0.7 % [place] Eosinophils (Bld) [#/Vol] 0.0 10*3/uL 0 - 0.7 K/uL [place] Eosinophils/100 WBC (Bld) 0.2 % [place] Erythrocyte distribution width (RBC) [Ratio] 13.2 % 11.5 - 14.5 % [place] Hematocrit (Bld) [Volume fraction] 41.0 % 37 - 47 % [place] Hemoglobin (Bld) [Mass/Vol] 14.2 g/dL 12 - 16 g/dL [place] Interpretation and review of laboratory results Abnormal [place] Lymphocytes (Bld) [#/Vol] 2.9 10*3/uL 1 - 4.8 K/uL [place] Lymphocytes/100 WBC (Bld) 25.0 % [place] MCH (RBC) [Entitic mass] 32.9 pg High 27 - 31.3 pg [place] MCHC (RBC) [Mass/Vol] 34.6 % 33 - 37 % [place] MCV (RBC) [Entitic vol] 95.0 fL 82 - 100 fL [place] Monocytes (Bld) [#/Vol] 0.4 10*3/uL 0.2 - 0.8 K/uL [place] Monocytes/100 WBC (Bld) 3.8 % [place] Neutrophils Absolute 8.2 K/uL High 1.4 - 6 .5 K/uL [place] Neutrophils/100 WBC (Bld) 70.3 % [place] Platelets (Bld) [#/Vol] 196 10*3/uL 130 - 400 K/uL [place] RBC (Bld) [#/Vol] 4.32 10*6/uL [place] WBC (Bld) [#/Vol] 11.6 10*3/uL High 4.8 - 10.8 K/uL [place] CBC With Platelet and Differ entialon 09-10-2020 Basophils (Bld) [#/Vol] 0.1 10*3/uL Normal 0.0-0.2 [facility] Comment on above: Performed By: #### C BCWD #### [facility] [address] [place] [address] Basophils/100 WBC (Bld) 0.7 % Normal [facility] Comment on above: Performed By: #### C BCWD #### [facility] [address] [place] [address] Eosinophils (Bld) [#/Vol] 0.0 10*3/uL Normal 0.0-0.7 [facility] Comment on above: Performed By: #### C BCWD #### [facility] [address] [place] [address] Eosinophils/100 WBC (Bld) 0.2 % Normal [facility] Comment on above: Performed By: #### C BCWD #### [facility] [address] [place] [address] Erythrocyte distribution width (RBC) [Ratio] 13.2 % Normal 11.5-14.5 [facility] Comment on above: Performed By: #### C BCWD #### [facility] [place] [address] [place] [address] Hematocrit (Bld) [Volume fraction] 41.0 % Normal 37.0-47.0 [facility] [place] [place] Comment on above: Performed By: #### C BCWD #### [facility] [place] [place] [address] [place] [address] Hemoglobin (Bld) [Mass/Vol] 14.2 g/dL Normal 12.0-16.0 [facility] [place] [place] Comment on above: Performed By: #### C BCWD #### [facility] [place] [place] [address] [place] [address] Lymphocytes (Bld) [#/Vol] 2.9 10*3/uL Normal 1.0-4.8 [facility] [place] [place] Comment on above: Performed By: #### C BCWD #### [facility] [place] [place] [address] [place] [address] Lymphocytes/100 WBC (Bld) 25.0 % Normal [facility] [place] [place] Comment on above: Performed By: #### C BCWD #### [facility] [place] [place] [address] [place] [address] MCH (RBC) [Entitic mass] 32.9 pg Critically high 27.0-31.3 [facility] [place] [place] Comment on above: Performed By: #### C BCWD #### [facility] [place] [place] [address] [place] [address] MCHC (RBC) [Mass/Vol] 34.6 % Normal 33.0-37.0 [facility] [place] [facility] Comment on above: Performed By: #### C BCWD #### [facility] [place] [place] [address] [place] [address] MCV (RBC) [Entitic vol] 95.0 fL Normal 82.0-100.0 [facility] [place] [place] Comment on above: Performed By: #### C BCWD #### [facility] [place] [place] [address] [place] [address] Monocytes (Bld) [#/Vol] 0.4 10*3/uL Normal 0.2-0.8 [facility] [place] [place] Comment on above: Performed By: #### C BCWD #### [facility] [place] [place] [address] [place] [address] Monocytes/100 WBC (Bld) 3.8 % Normal [facility] [place] [place] Comment on above: Performed By: #### C BCWD #### [facility] [place] [place] [address] [place] [address] Neutrophils (Bld) [#/Vol] 8.2 10*3/uL Critically high 1.4-6.5 [facility] [place] [place] Comment on above: Performed By: #### C BCWD #### [facility] [place] [place] [address] [place] [address] Neutrophils/100 WBC (Bld) 70.3 % Normal [facility] [place] [place] Comment on above: Performed By: #### C BCWD #### [facility] [place] [place] [address] [place] [address] Platelets (Bld) [#/Vol] 196 10*3/uL Normal 130-400 [facility] [place] [place] Comment on above: Performed By: #### C BCWD #### [facility] [place] [place] [address] [place] [address] RBC (Bld) [#/Vol] 4.32 10*6/uL Normal 4.20-5.40 [facility] [place] [place] Comment on above: Performed By: #### C BCWD #### [facility] [place] [place] [address] [place] [address] WBC (Bld) [#/Vol] 11.6 10*3/uL Critically high 4.8-10.8 [facility] [place] [place] Comment on above: Performed By: #### C BCWD #### [facility] [place] [place] [address] [place] [address] COVID-19on 09-10-2020 COVID-19, NAAT Not Detected Normal Not Detect [facility] Comment on above: Result Comment: Rapi [...] authorized laboratories. Fact sheet for Healthcare Providers: https://www.fda.gov/media/525722/download Fact sheet for Patients: https://www.fda.gov/media/376395/download METHODOLOGY: Isothermal Nucleic Acid Amplification Performed By: #### C OVPC #### [facility] [place] [place] [address] [place] [address] SARS-CoV-2, NAAT Not Detected Not Detected [place], [place] Comment on above: [place] NAAT: Negative [...] authorized laboratories. Fact sheet for Healthcare Providers: https://www.fda.gov/media/242806/download Fact sheet for Patients: https://www.fda.gov/media/716176/download METHODOLOGY: Isothermal Nucleic Acid Amplification Comprehensive Metabolic Pane felipa 09-10-2020 Albumin [Mass/Vol] 3.9 g/dL Normal 3.5-4.6 [facility] [place] [place] Comment on above: Performed By: #### C MP #### [facility] [place] [address] [place] [address] ALP [Catalytic activity/Vol] 76 U/L Normal 40-130 [facility] [place] Comment on above: Performed By: #### C MP #### [facility] [place] [address] [place] [address] ALT [Catalytic activity/Vol] 22 U/L Normal 0-33 [facility] [place] Comment on above: Result Comment: Spec imen hemolysis has exceeded the interference as defined by Shikha. Result may be affected. Suggest recollection if clinically indicated. Performed By: #### C MP #### [facility] [place] [address] [facility] [address] Anion gap [Moles/Vol] 9 mmol/L Normal 9-15 [facility] Comment on above: Performed By: #### C MP #### [facility] [place] [address] [place] [address] AST [Catalytic activity/Vol] 18 U/L Normal 0-35 [facility] [place] Comment on above: Result Comment: Spec imen hemolysis has exceeded the interference as defined by Shikha. Value may be falsely increased. Suggest recollection if clinically indicated. Performed By: #### C MP #### [facility] [place] [address] [place] [address] Bilirubin [Mass/Vol] 0.3 mg/dL Normal 0.2-0.7 [facility] Comment on above: Performed By: #### C MP #### [facility] [place] [address] [place] [address] Calcium [Mass/Vol] 9.2 mg/dL Normal 8.5-9.9 [facility] [place] Comment on above: Performed By: #### C MP #### [facility] [place] [address] [place] [address] Chloride [Moles/Vol] 103 mmol/L Normal 95-107 [facility] Comment on above: Performed By: #### C MP #### [facility] [place] [address] [place] [address] CO2 [Moles/Vol] 28 mmol/L Normal 20-31 [facility] Comment on above: Performed By: #### C MP #### [facility] [place] [address] [place] [address] Creatinine [Mass/Vol] 0.67 mg/dL Normal 0.50-0.90 [facility] Comment on above: Performed By: #### C MP #### [facility] [place] [address] [place] [address] GFR/1.73 sq M predicted among blacks MDRD (S/P/Bld) [Vol rate/Area] mL/min/{1.73_m2} Normal >60 [facility] [place] Comment on above: Result Comment: >60 mL/min/1.73m2 EGFR, calc. for ages 18 and older using the MDRD formula (not corrected for weight), is valid for stable renal function. Performed By: #### C MP #### [facility] [place] [address] [place] [address] GFR/1.73 sq M.predicted MDRD (S/P/Bld) [Vol rate/Area] mL/min/{1.73_m2} Normal >60 [facility] [place] Comment on above: Result Comment: >60 mL/min/1.73m2 EGFR, calc. for ages 18 and older using the MDRD formula (not corrected for weight), is valid for stable renal function. Performed By: #### C MP #### [facility] [place] [address] [place] [address] Globulin (S) [Mass/Vol] 2.4 g/dL Normal 2.3-3.5 [facility] [place] Comment on above: Performed By: #### C MP #### [facility] [place] [address] [place] [address] Glucose [Mass/Vol] 189 mg/dL Critically high 70-99 [facility] Comment on above: Performed By: #### C MP #### [facility] [place] [address] [place] [address] Potassium [Moles/Vol] 4.2 mmol/L Normal 3.4-4.9 [facility] Comment on above: Result Comment: Spec imen hemolysis has exceeded the interference as defined by Shikha. Value may be falsely increased. Suggest recollection if clinically indicated. Performed By: #### C MP #### [facility] [place] [address] [place] [address] Protein [Mass/Vol] 6.3 g/dL Normal 6.3-8.0 [facility] [place] Comment on above: Performed By: #### C MP #### [facility] [place] [address] [place] [address] Sodium [Moles/Vol] 140 mmol/L Normal 135-144 [facility] [place] Comment on above: Performed By: #### C MP #### [facility] [place] [address] [place] [address] Urea nitrogen [Mass/Vol] 17 mg/dL Normal 6-20 [facility] [place] Comment on above: Performed By: #### C MP #### [facility] [place] [address] [place] [address] Albumin [Mass/Vol] 3.9 g/dL 3.5 - 4.6 g/dL [place], [place] ALP [Catalytic activity/Vol] 76 U/L 40 - 130 U/L [place] ALT [Catalytic activity/Vol] 22 U/L 0 - 33 U/L [place] Comment on above: Specimen hemolysis h as exceeded the interference as defined by Shikha. Result may be affected. Suggest recollection if clinically indicated. Anion gap [Moles/Vol] 9 mmol/L [place], [place] AST [Catalytic activity/Vol] 18 U/L 0 - 35 U/L [place] Comment on above: Specimen hemolysis h as exceeded the interference as defined by Shikha. Value may be falsely increased. Suggest recollection if clinically indicated. Bilirubin Ql (U) 0.3 mg/dL 0.2 - 0.7 mg/dL [place] Calcium [Mass/Vol] 9.2 mg/dL 8.5 - 9.9 mg/dL [place] Chloride [Moles/Vol] 103 mmol/L [place] CO2 [Moles/Vol] 28 mmol/L [place] Creatinine [Mass/Vol] 0.67 mg/dL 0.5 - 0.9 mg/dL [place] GFR >60.0 >60 [place] Comment on above: >60 mL/min/1.73m2 EG FR, calc. for ages 18 and older using the MDRD formula (not corrected for weight), is valid for stable renal function. GFR Non- >60.0 >60 [place] Comment on above: >60 mL/min/1.73m2 EG FR, calc. for ages 18 and older using the MDRD formula (not corrected for weight), is valid for stable renal function. Globulin (S) [Mass/Vol] 2.4 g/dL 2.3 - 3.5 g/dL [place] Glucose [Mass/Vol] 189 mg/dL High 70 - 99 mg/dL [place] Interpretation and review of laboratory results Abnormal [place] Potassium [Moles/Vol] 4.2 mmol/L [place] Comment on above: Specimen hemolysis h as exceeded the interference as defined by Shikha. Value may be falsely increased. Suggest recollection if clinically indicated. Protein [Mass/Vol] 6.3 g/dL 6.3 - 8 g/dL [place] Sodium [Moles/Vol] 140 mmol/L [place] Urea nitrogen [Mass/Vol] 17 mg/dL 6 - 20 mg/dL [place] MRI LUMBAR SPINE WO CONTRAST on [...] MD 09/10/20 Final result Normal [facility] [place] Rory, Chpo Incoming Radiant Results From [employer] - 09/10/2020 4:27 PM EST STUDY IS [...] superior facet joint spurring and/or ligamentous thickening. [place] STUDY IS REVIEWED WITH THE REFERRING [...] superior facet joint spurring and/or ligamentous thickening. [place] Partial Thromboplastin Timeo n 09-10-2020 aPTT Coag (Bld) [Time] 30.5 s Normal 24.4-36.8 [facility] [place] Comment on above: Result Comment: Effe ctive 07/25/2020: Heparin Therapeutic Range: 64.0 ? 98.0 seconds. Performed By: #### P TT #### [facility] [place] [address] [place] [address] Prothrombin Timeon 0 INR Coag (PPP) [Relative time] 1.1 {INR} Normal [facility] [place] Comment on above: Performed By: #### P T #### [facility] [place] [address] [facility] [address] PT Coag (PPP) [Time] 13.9 s Normal 12.3-14.9 [facility] Comment on above: Performed By: #### P T #### [facility] [place] [address] [place] [address] Protime-INRon 09-10-2020 INR Coag (PPP) [Relative time] 1.1 {INR} [place] PT Coag (PPP) [Time] 13.9 s [place] XR CHEST PORTABLEon 09-10-20 XR CHEST [...] MD 09/11/20 Final result Normal [facility] [place] XR LUMBAR SPINE (MIN 4 VIEWS )on [...] MD 09/11/20 Final result Normal [facility] [place] Vital Signs Date Time Vital Sign Value Performing Clinician Bretti daysi 09-11-2020 17:30-0500 BP Diastolic 94 mm[Hg] [place], [place] 09-11-2020 17:30-0500 BP Systolic 182 mm[Hg] [place] 09-11-2020 17:30-0500 Pulse (Heart Rate) 60 /min [place] 09-11-2020 17:30-0500 Pulse Oximetry 94 % [place] 09-11-2020 17:30-0500 Respiratory Rate 19 /min [place] 09-11-2020 16:50-0500 Body Temperature 98.01 [degF] [place] 09-10-2020 10:41-0500 BMI (Body Mass Index) 27.46 kg/m2 [place], [place] 09-10-2020 10:41-0500 Body weight 72.58 kg [place] 09-10-2020 10:41-0500 Height 162.6 [facility] [place] [facility] [place] Encounters Encounter Date Encounter Type Care Provider Facility Start: 01-07-2024 End: 01-07-2024 ambulatory MELA LANDAOKSANAZ Not Available Start: 11-30-2023 End: 11-30-2023 ambulatory TRACEE BELTRAN Not Available Start: 11-10-2023 End: 11-10-2023 ambulatory ZAIDA FLORES Not Available Start: 10-27-2023 Refill Mela Aichholz CLINICAL STUDIES SPECIALIST Work Phone: [facility] Comment on above: Mixed hyperlipidemia (CMS/HCC) (Primary Dx) Start: 10-05-2023 End: 10-05-2023 ambulatory MELA AICHHOLZ Not Available Start: 08-25-2023 End: 08-25-2023 ambulatory MELA AICHHOLZ Not Available Start: 09-05-2022 End: 09-06-[address] EVAN GILLESPIE Facility: Start: 05-30-2022 End: 05-31-2022 ambulatory Orlando Cole [place] Start: 05-30-2022 End: 05-30-2022 Patient encounter procedure Orlando Cole [facility] Start: 11-12-2021 Encounter for genera l adult medical examination without abnormal findings DR EVAN GILLESPIE [facility] Start: 11-11-2021 End: 11-12-[address] EVAN GILLESPIE Facility:[facility] Start: 11-11-2021 End: 11-12-2021 Encounter for general adult medical examination without abnormal findings DR EVAN GILLESPIE Facility:[facility] Start: 09-20-2021 End: 09-21-2021 ambulatory Cameron Singleton [facility] Start: 09-10-2020 End: 09-11-2020 Evaluation and management of inpatient SR EVAN GILLESPIE [facility] [place] Start: 09-10-2020 End: 09-11-2020 Evaluation and management of inpatient Magdaleno Basilio Rios Work Phone: [facility] Comment on above: Right leg weakness ( Primary Dx); Protruded lumbar disc; Postoperative pain Procedures Date Procedure Procedure Detail Performing Clinician Start: 09-30-2023 Mammography Mela veloz CLINICAL STUDIES SPECIALIST Work Phone: Start: 09-11-2020 Fluoroscopy during operation Magdaleno Rios [...] for malign ant neoplasm of breast Mammogram [facility] Start: 01-07-2024 End: 01-07-2024 Patient encounter procedure 01/07/2024 9:40 AM EDT Office Visit [facility] [address] [place] [phone] Mela Daily, CLINICAL STUDIES SPECIALIST [address] [place] [id number] [facility] Start: 11-20-2023 Screening for malign ant neoplasm of cervix Cervical Cancer Screening [facility] Comment on above: Postponed from 06/01 (Other Medical Reasons) Start: 11-20-2023 Screening for malign ant neoplasm of colon Colorectal Cancer Screening [facility] Comment on above: Postponed from 06/01 (Other Medical Reasons) Start: 11-10-2023 End: 11-10-2023 Patient encounter procedure 11/10/2023 8:30 AM EST Office Visit [facility] [address] [place] [phone] Zaida Flores MD [address] [place] [address] [facility] Start: 08-29-2022 Hemoglobin A1c measurement Diabetes: Hemoglobin A1C [facility] Start: 09-24-2020 End: 09-24-2020 Office Visit 09/24/2020 Office Visit Neurosurgery Magdaleno Rios MD [address], [address] [place] [id number] [employer] Start: 05-22-2020 Influenza vaccination Flu vaccine (# 1) [place], [place] Start: 2011 Screening for malign ant neoplasm of breast Breast cancer screen [place], [place] Start: 2011 Screening for malign ant neoplasm of colon Colon cancer screen colonoscopy [place] Start: 2011 Shingles Vaccine (1 of 2) Shingles Vaccine (1 of 2) [place] Start: 2001 Diabetes screen Diabetes screen [place], [place] Start: 2001 Lipid panel Lipid screen [place], [place] Start: 1991 Screening for malign ant neoplasm of cervix HPV/Cotest [facility] Start: 1982 Screening for malign ant neoplasm of cervix [facility] Start: 1980 DTaP/Tdap/Td vaccine (1 - Tdap) DTaP/Tdap/Td vaccine (1 - Tdap) [place], [place] Start: 1980 Urine screening for protein Diabetes: Urine Protein Screening [facility] Start: 1976 [facility] [place] [place] Start: 1971 Glaucoma screening Diabetes: R etinopathy Screening [facility] Start: 1961 Hepatitis C screening Hepatitis C sc reen [place], [place] Start: 1961 Screening for malign ant neoplasm of colon [facility] EKG 12 Lead - Chest Pain EKG 12 Lead - Chest Pain ECG STAT 09/10/2020 4:45 PM EST [place] Oxygen therapy [[facility] Data Set] Initiate Oxygen Therapy Protocol Respiratory Care Routine Daily until discontinued starting 09/10/2020 [place] Comment on above: Daily until disconti nued starting 09/10/2020 Surgical Pathology Surgical Path ology Lab Routine Release Upon Ordering for 1 Occurrences starting 09/11/2020 [place] Comment on above: Release Upon Orderin g for 1 Occurrences starting 09/11/2020 Payers Date Payer Category Payer Unknown BCBS [id number] [id number] 2015-Present [phone] [address] [place] [address] [id number] 1961 Unknown [id number] 1961 Unknown [id number] 1961 Unknown [id number] 1961 Unknown [id number] 1961 Unknown [id number] 1961 Unknown [id number] 1961 Unknown [id number] 1961 Unknown [id number] 1961 Unknown [id number] 1961 Unknown [id number] 1959 Unknown [id number] Social History Date Type Detail Facility Start: 09-11-2020 Tobacco smoking stat [facility] Former smoker [place], [place] History of tobacco use Cigarette Smoker [place] Start: 09-11-2020 End: 08-25-2023 Cigarettes smoked current (pack per day) - Reported [facility] Start: 09-11-2020 Tobacco use and exposure Never used [place] Start: 09-11-2020 Alcohol intake Lifetime non-d shobha (finding) [place] Start: 09-10-2020 History SDOH Alcohol Frequency 1 [place] Start: 1960 Sex Assigned At Not on file [place] Exposure to SARS-CoV -2 (event) Not sure [place] Tobacco smoking status No Smokin g Status Entered [facility] Start: 08-25-2023 End: 10-05-2023 Sex Assigned At Female [facility] Start: 08-25-2023 Tobacco smoking stat RUSTIS Smokes tobacco daily [facility] Start: 10-05-2023 Alcohol intake Current drinke r of alcohol (finding) [facility] Within the last year , have you been afraid of your partner or ex-partner? No [facility] Do you belong to any clubs or organizations such as uatsdin groups, unions, fraternal or athletic groups, or [...] - these days [OSQ] Not at all [facility] (I/We) worried wheprice er (my/our) food would run out before (I/we) got money to buy more. Never true [facility] Start: 08-25-2023 Tobacco Comment 10-19 cigarettes/day [facility] Start: 08-25-2023 Alcohol Comment 1-2 drinks mon thly or less, caffeine 1-2 cups per day [facility] Evaluation + Plan note Note Date & Type Note Facility Evaluation + Plan note No data available for this section [facility] Evaluation note Note Date & Type Note Facility Evaluation note Diagnosis Mixed hyperlipidemia (CMS/HCC)- Primary Mixed hyperlipidemia documented in this encounter [facility] Discharge instructions Note Date & Type Note Facility Hospital Discharge instructions No data available for this section [facility] Progress note Note Date & Type Note Facility Progress note No data available for this section [facility] Discharge Instructions * Instructions* Magdaleno Rios [...] your physician 11) Call your doctor at [phone] for an appointment (or follow up as [...] call OFFICE. The 24- hour phone is [phone] 13) If you are unable to contact [...] Weakness of right leg Magdaleno Rios MD [address], [address] [place] [address] [facility] Ordered Prescriptions (unrec ognized section and [...] section and content) DATE CREATED AUTHOR [facility] DATE CREATED AUTHOR AUTHOR'S ORGANIZ ATION 10/21/2021 [facility] dical Specialist DATE CREATED AUTHOR AUTHOR'S ORGANIZ ATION 06/02/2022 [facility] DATE CREATED AUTHOR AUTHOR'S ORGANIZ ATION 09/12/2022 [facility] DATE CREATED AUTHOR AUTHOR'S ORGANIZ ATION 01/08/2024 [facility] dical Specialists EPIC Care Team (unrecognized sect ion and content) Car Varnisher Relationship Specialty Start Date End Date Jose Powers MD PCP - General Family Medicine 08/18/23 Mela Daily NP [address] [place] [address] Nurse Practitioner Family Medicine 08/18/23 FOR RECORDS [...] BE BASED ON THE PRIMARY CLINICAL RECORDS. [employer] provides no warranty or guarantee of the accuracy or completeness of information in this document.
[2024-02-17 07:33] LABS: Estimated Average Glucose 148 mg/dL; Glycohemoglobin A1C 6.8 % (4.5-6.2)
[2024-02-17 08:06] LABS: Alanine Aminotransferase 72 U/L (14-59); Aspartate Amino Transferase 30 U/L (15-37); Chol HDL Ratio 3.5; Cholesterol 149 mg/dL (<=200); HDL Cholesterol 43 mg/dL (40-60); Triglycerides 166 mg/dL (<=150); VLDL CHOLESTEROL 33.2 mg/dL
== END 2024-02-17 07:09 | disposition home or self-care (01) ==
PROVIDERS: PCP Nurse Practitioner; Visit Provider Nurse Practitioner
DX: E78.2 Mixed hyperlipidemia (principal); E11.9 Type 2 diabetes mellitus without complications
CPT/HCPCS: 36415; 80061; 83036; 84450; 84460

== ENCOUNTER 2024-05-19 09:03 | Outpatient (OUT) | payer BC, SELFPAY ==
--- OUTSIDE RECORDS SUMMARY | 2024-05-19 09:29 | XMS_ITS | CCD ---
Author Organization [facility] Care Team Providers Care Submarine Element Coordinator Name Role Phone House, Sr Evan Lu Primary Care Provider JOSE MIGUEL, SR EVAN Lu Primary Care Unavailable GABRIELMAGDALENO H. Admitting Unavailable GABRIEL, MAGDALENO H. Attending Unavailable Evan Gillespie Primary Care Physician Orlando Cole Admitting Unavailable Douglas, Orlando Boothe Attending Unavailable Douglas, Orlando Boothe Referring Unavailable Areli, Cameron Azul Admitting Unavailable Areli, Cameron Azul Attending Unavailable Areli, Cameron Azul Referring Unavailable JOSE MIGUEL, DR MARADIAGA Admitting Unavailable JOSE MIGUEL, DR MARADIAGA Primary Care Unavailable JOSE MIGUEL, DR MARADIAGA Consulting Unavailable JOSE MIGUEL, DR MARADIAGA Attending Unavailable HOUSE, DR MARADIAGA Primary Care Unavailable HOUSE, DR MARADIAGA Consulting Unavailable JOSE MIGUEL, DR MARADIAGA Attending Unavailable HOUSE, DR MARADIAGA Admitting Unavailable JOSELITO, DR JOSH Saenz Consulting Unavailable Jose Powers MD Primary Care Provider [employer] TE[employer]ER, Mela Unavailable MELA DAILY Attending Unavailable ZAIDA FLORES Attending Unavailable TRACEE BELTRAN Attending Unavailable ABIMBOLA, MELA Referring Unavailable ABIMBOLA, MELA Attending Unavailable ABIMBOLA, MELA Attending Unavailable ABIMBOLA, MELA Attending Unavailable ABIMBOLA, MELA Attending Unavailable Medications Current Medications Medication Drug [...] (PF) injection 2 mg polyethylene glycol 3350 [id number] mg powder for oral solution (1 source) [...] daily 0 09/10/2020 Discontinued (Therapy completed) sennosides, [facility] 8.6 mg oral tablet (1 source) Start: [...] : DR EVAN GILLESPIE D.O. Admission #: [id number] Family : Order #: [id number] CLICK HERE TO VIEW EXAM RADIOLOGY REPORT PROCEDURE: MAMMOGRAM SCREENING 3D BILATERAL CAD COMPARISON: MAMMO ANGELICA SCREEN, 07/08/2013. MAMMO ANGELICA SCREEN, 01/08/2009. INDICATIONS: Screening mammography Calculator Name NCI Breast Cancer Risk Assessment Tool 5 Year Breast Cancer Risk Not Reported. Lifetime Breast Cancer Risk Not Reported. Personal Breast Cancer No Personal Ovarian Cancer No Treatments None Family Cancers None LOCATION: [facility] BREAST COMPOSITION: Scattered areas fibroglandular density. FINDINGS: [...] M.D. on 09/08/2022 at 13:34 Normal [facility] Coding Summary.on 06-02-2022 Coding Summary. [id number] G h0bWw+PGhlYWQ+EG4SYJD vH87gkAXjhN4XT9oSEQ2T FPRHGGYLEK3LFB3qoRJ5B ZezD0UzvpUr KlknvOSnSF21HYu7ISC2z GgtQKhheM5fjFUtQ8k4Cf TjTS56nS31BHnmNNWvGfD 3LjZpbjsgbWFy Z9ceMmLxdTBiSev+PHRhY mxlIHdpZHRoPScxMDAlJy FpsOygVO3kQl7sUIUxKUZ vbGxhcHNlOiBj y4hbUSXzKAgfKV7hzOkiR 7PcdQT5XFNnw8r4Mj87hT I+YEUtUNX3yXjlZNprp68 8XoFxw8edQUR2 lSWoPVyvTLN6S32xy1L8Y GIiFPRcXSR3yCM7tU6mcP inpxewK4HduKIcUiV3CBU 4bCPxdL7pwOal cabiqR2gGym+T75JDO1PL LPOIG8KXdr7Q1BiIkdezV I+MF41URNiRP11dBEneOZ hg6qucMs6HjBz WQSyYWU9aYdoKGmfw4RzH LKeX84nwOAhf0Q0HCVqpP ixnJSjKlArjOM3gP1gCKy shzdcu2torjvj Kuuhi5ulif73vI70Q59oT SfjQDUfHYJ4DAIyIZFfzB htbt6psV2uQn6+WStdu7b tn1wzpQg9MsJk BZBcofUgtGcmFUO4h0NuI s44D8MugVwax4AeJqk5ua 06oIUie2V4tYC7YOfvAYT tsL3sNVwjBkA3 DJLrRmOayX37nMWfCGrcZ k9oyMclkKbbLA6oOBOmgk ncOBDbvI8vWYDxmCGceHv pOR8zDVRsgsht t980NxRjNDI3NDGoxIMpG 2GvgN7sGxAlJZSpJTSqU9 WouDHvNTbtA263VXtxXxY 3LJHrtwOsA5Li IWVqjJctDuG5z0B4Zw5Al 9TfmaoeZTZ0SSknUUN8Up LwBrXkDuB3W7QrDqi1JSP fxKbwQR9iU7Kq TLCodeagsrdjeYR0VFRaS LXbtV13pGYpYSvnDt2uf0 L5w499NVEpRKPhjD27Zr7 udDogMTBwdCBU dX1cvuaal3ixkejgGfPjG XMsKXh5JJi3UTFrfLwsPt AxEDF0VjM2XCC5zJAzgW1 aoBcwlvygbZ2n Oyc+Y41wtN6cHSF0RQC2s pluUQHgxnElDK17YV65I3 RyPjwvdGFibGU+PGRpdiB idXaaSD8iRiIb s8wqs7DxYLnfC3UcVBRlR UpuAet1JQNjZOB4gRT3pH 9oQOIfLJnjh8P6mCU9Z9W qyxLlol5qb9ww ZTHbNCkfN57dmGEbf4Z9B VIquYI7KYEdePvdChEkeK 93Oyc+DFDcbGvqa8TxLbk bq4lqg3qflZr9 KuQeMFWhjfYqnEmnWYE4h 8BcZp33D72xCIwiFKBxPD BjHHRiXPMrsKywnj0crN2 wIi8+PGNvbCB3 fTH4iR7jKKMyXmV1HZvjM 910FwLjjJJzKgstc1tgq0 qkvKg4GfJhLGIogpFdxWe dDND3j8AcWu76 V64cPJpkLGGsNVYrKHQeH GKhtKeegc3zmC6pDe2+PC 0gn5xhyo91tV78yGP+PHR wXSR5fRfbUTxg HPPrxY3tZYayNaQ9HAMoU oTjzU96eYAzGTdlEb6ocJ kfmQcmBT4tXHEmwocwf88 4QvPqt0wwANOr nYJiUUmmAEO8W61vk4Q3Q LCgMEDgPCL4jRE2iV6elM lnbjogbGVmdDsgdmVydGl lHLvxYImyT684 IHRvcDsnPlBhdGllbnQgT xQrVWp4L0VvAmd6KIQcjW azUW5mnAPbBDywUr3iyUu yeZglVB6mWSLt iwwkk320NrVuh5gvSORec CZsBIbcSDW8L26mk8C6UE LgLIBdCPI9nNM2iX0arWw nbjogbGVmdDsg qwOmjKpdSNauGBhtJ966Z HRvcDsnPkJpcnRoIERhdG B4GI74RW39qIZxc5D8rAL 9E8XeVFZfphff erlvrOC8HCHtHTItbR74Z t6hePhoTf6dRQWxXWO7LL VsiMHjP2HzyP4dFmCjRMJ eQDGnA3WxfFGb SUybT011QGieYxY4CJWer bUyZ8MnWROeaMvaKzY1v7 U5Av9WI1Y2QZ64PB45xXI ty6K0iLL9A3Zo XQMdrvrsofxesAK6KKChJ XDxfI12Zr2caCgkMd2sWS LyXIF6LXBjwIBuR1UdzA2 yOiAjMDAwMDAw X2CkaMVbLRvpI597SZrbI oX8EOTihbQxV2BeZWIyvG nmVpR3c2Z0Bb6GWTy0GL2 0OU21gFQni9N9 cCP0T4AkHCBzyxiowbtgt FU9ZZZuYRXdeU92Uq8inB dcFm8oTFIeKHE9CYFayRV kG0LwnO0mDpUx UYEtENAnD2IzgEPzZCfwQ 444ZUybUmG2USLwcgGmD7 YcDJNotXksTiR2e5L0Cj6 KACOoLX34NVG4 jBD5SH16II10Z8NnGffkc GFibGU+PHRhYmxlIHdpZH RoPScxMDAlJyBzdHlsZT0 jMc1xRTFeTPXw wVpcdELhLlFab3inRIHdV WwcXB7oxBhgC0BzqIW2KS Kmg6p3Sz53Y83xY2DzqQF +HKMhmLE3rNZ1 dF2iFzVeSmR3GArvC244X pPflVOsYvmyn7fjf4equC z2JpU4EJZmfmYikQroOJA 6j4GoDq23E59e IHdpZHRoPSIxNSUiIHZhb Xxpmm1mqJ6lHb6+PGNvbC V1nRP2sG0fOmYrPiN9CBq rJ300RtDooNXf Mthrq9nlp4vsfVb7YdQpH FAqsjMkzKfnYFI9w6NwQd 81Q1FopEkyt9AfZki8ao1 2wVRfv3F6fHJ5 G3ZaTGBcjzictDBscXcyU X1bNHAzttksFRKgfX3hAH FnF1o7FbMzFsH1JAgnV5G fjoC6PHAzdSFr HGkiKAL5J91hp8J6FOIpR YAuXNK5mEJ2sC1lyYxrsi ogbGVmdDsgdmVydGljYWw pDAdpV212EFMq mHkyHQIsmX6pIQYbqBVvt OilJD5kIBVyqyxlTv5XV8 JFLCBMVUNSRVRJQSBNPC9 0ZJ13fPEqb8U0 vZZ1H8TdEAXwjoycexmju DE4NQQzNILtoN77qOOoHT agTa5iw4R7z251LLErEXB wiI98Yf4orGtz RKGmbJBUtL9mpvkme5jxa ujzKfPyEWTeKVf7ELr9ZO MatIvwNvJcILX2PbN4LHW 5iLDctG7uvCqa tkageP7cOxo+MDkvMTEvM Ay9YRavrJM+KYSfWUW1xI aaPYctUYHwwC9aIRFrQ5g 5RkLeQgF5KEdl T6ShKBWyqqvfLb32qO5iZ pKuAfY0CXquY9XjtvZ2CB WpnDDqUOwsBFN3Q51wg7A 3FEAeSXVsHDB7 kPJ2hN0zfInkdwbccQDgd DsgdmVydGljYWwtYWxpZ2 46IHRvcDsnPjYxIFllYXJ gFS29LP53lXBk s3D3rBW7A9WlJJCluzmrw cmryDC4RFEzECQstS50hI PzPNzeCq9ci5R3m736UGN rFSRvlX30Il3p yMthALBwdSYDeS0ujvnog 3dgvrenApYmURElRRb6OL l4GIItnOdrGfOlLJV3DwF 6MDM5cWJehA9r hXjjgztdeQ8aYhl+RmVtY ObbDJ89ND43jSDkf1O7fL X2V5NzFUCylkilmfggqOP 7KMRuGDVmsF75 qOTtGXrcWf1ah8A6e519Q AWmVMIqoP23Ei6opStcUF QrnDDWiM6izlfns9xlnxk gIzAwMDAwMDt0 TRc1LABiyLrcLsKwIXZ4W dM3QFJ0uDDvhE1arBedks jsoO9aNvq+C3X5aQN6cBY udDwvdGQ+PC90 fm28C9FeSimmWpq6BMFcR EO5dCY4gQ3vXXUuRNcdo8 V2pLU5X5HhnjYwzm5dz2j wFKQgBXeuV95p lIDga8X9RFDgdUM1OHCww LhdBhTegE40Yyo+PGNvbG ipy5HaEccwd2lrt5ljfXx 9IjMwJSIgdmFs gDilKZM7i8YwQq82V34rQ HdpZHRoPSIzMCUiIHZhbG xyst3daL2jHv9+PGNvbCB 8rWH3vN5uYqDo UaZ4NFyeE251PlCngDFdX jsla4ifo5qgtRn0LeHlFI AwfyYjjOtkNWP1m0IxJa7 9U6YczYuor1Vm Pxe5uq38zTBob0I9tAF7N 3BhZGRpbmctbGVmdDogMC 4oLLQcjtouAGWjbZ3wCQB lD1l5PnElSqQ5 BOjaH7UklyL7EMCvfALcJ KFocLRJvD0oylgfg9ltrv qcZaNdECDfVVo1BMo3PQT saWduOiBsZWZ0 OmW4ACJ7yOEurI7jyJdae ladrL8fApz+PKp9m6xugR OeYV2vyMC6SO66KK86mVE la9Z8sNG5V4Br MICwgoyswjywcIC3UMYwY DIfxD81Po0axXckJu4lTJ YzUFR1YOQpuSJaB7WmmQ1 yOiAjMDAwMDAw S5ZflRXcCZolM973ABmnZ bF8HTAxnxRqZ5LaRRLwzB bxHkG2u5H0Xm0FTK85KY2 8SL61rCUsl2V2 yGQ3M8FmCAYspyqfpuhca AL3AMUmUPGtgX21Vk4uhM veWv8wIEBhOYR6PLOpzLF jD7QkcW3cFbQa UWPdZEUdL5NyhROaTBdiH 393EMprPpO0YYDkxvFyC9 ImYRDmpIzyYxM8g2D4Fy4 DMh89ER79FF20 nPHmm5Y4mWC9I5YuSOAfv jcbhnxiyHG8HBUvRINfmD 87Jz6srHcyBs3kHGGkIOA 2GXZjhKQmB7Vk wQ4rZcHxGYXsLBUmE9Way JRjIPdkP593BJepNwR5FF EljfYoD2BlEZWgpElrNwW 6x4W1Lv9SITtw vzh9B5ZfUwatfNN+PC90Y AGkMQ70mBHezIHrk8dmlB x7HuAvTDLrEBY3mUeqIIf re9VnHWWqD42m bGFw (more content not included)... Normal [facility] Auto Diffon 05-30-2022 Basophils/100 WBC (Bld) 0.6 % Normal 0.0-2.0 [facility] Comment on above: Order Comment: Order Added by Discern Expert. Performed By: #### 7 [id number], 0595056, 0811684, 4641187, [id number] #### [facility] [address] [place] [address] Basophils/Leukocytes Auto (Bld) [Pure # fraction] 0.0 E9/L Normal 0.0-0.2 [facility] Comment on above: Order Comment: Order Added by Discern Expert. Performed By: #### 7 [id number], 6471900, 9253677, 1517221, 82350350 #### [facility] [address] [place] [address] Eosinophils/100 WBC (Bld) 1.3 % Normal 0.0-8.0 [facility] Comment on above: Order Comment: Order Added by Discern Expert. Performed By: #### 7 [id number], 2297237, 9840253, 0599496, 50970045 #### [facility] [address] [place] [address] Eosinophils/Leukocyte s Auto (Bld) [Pure # fraction] 0.1 E9/L Normal 0.0-0.5 [facility] Comment on above: Order Comment: Order Added by Discern Expert. Performed By: #### 7 [id number], 7787639, 6170036, 4119411, 94833558 #### [facility] [address] [place] [address] Lymphocytes/100 WBC (Bld) 32.4 % Normal 14.0-50.0 [facility] Comment on above: Order Comment: Order Added by Discern Expert. Performed By: #### 7 [id number], 3194378, 1102172, 6933477, 24621945 #### [facility] [address] [place] [address] Lymphocytes/Leukocyte s Auto (Bld) [Pure # fraction] 2.1 E9/L Normal 1.0-4.0 [facility] Comment on above: Order Comment: Order Added by Discern Expert. Performed By: #### 7 [id number], 9176584, 3927147, 3941687, 46329898 #### [facility] [address] [place] [address] Monocytes/100 WBC (Bld) 7.6 % Normal 4.0-14.0 [facility] Comment on above: Order Comment: Order Added by Discern Expert. Performed By: #### 7 [id number], 0014238, 6643517, 1821883, 32091808 #### [facility] [address] [place] [address] Monocytes/Leukocytes Auto (Bld) [Pure # fraction] 0.5 E9/L Normal 0.2-1.0 [facility] Comment on above: Order Comment: Order Added by Discern Expert. Performed By: #### 7 13543795, 8239305, 1914844, 4854864, 80226863 #### [facility] [address] [place] [address] Neutrophils/100 WBC (Bld) 58.1 % Normal 36.0-75.0 [facility] Comment on above: Order Comment: Order Added by Yosvany Expert. Performed By: #### 7 [id number], 8736659, 1972308, 7872771, 80925340 #### [facility] [address] [place] [address] Neutrophils/Leukocyte s Auto (Bld) [Pure # fraction] 3.7 E9/L Normal 2.0-7.5 [facility] Comment on above: Order Comment: Order Added by Discern Expert. Performed By: #### 7 [id number], 8056524, 4709933, 2043433, 36812833 #### [facility] [address] [place] [address] BMPon 05-30-2022 Anion gap [Moles/Vol] 11 mmol/L Normal 6-16 [facility] Comment on above: Performed By: #### 7 15292847, 4837016, 0577761, 2756030, 11031300 #### [facility] [address] [place] [address] Calcium [Mass/Vol] 9.1 mg/dL Normal 8.9-11.1 [facility] Comment on above: Performed By: #### 7 49510378, 3492643, 6420053, 5213790, 16712035 #### [facility] [address] [place] [address] Chloride [Moles/Vol] 102 mmol/L Normal 101-111 [facility] Comment on above: Performed By: #### 7 [id number], 0138393, 6773697, 6344867, 13648094 #### [facility] [address] [place] [address] CO2 [Moles/Vol] 28 mmol/L Normal 21-31 [facility] Comment on above: Performed By: #### 7 77602405, 0341609, 4176517, 1332205, 84612877 #### [facility] [address] [place] [address] Creatinine [Mass/Vol] 0.7 mg/dL Normal 0.5-1.3 [facility] Comment on above: Performed By: #### 7 20640191, 0869887, 9826104, 4805022, 31544669 #### [facility] [address] [place] [address] Glucose [Mass/Vol] 115 mg/dL Normal 55-199 [facility] Comment on above: Result Comment: If t his glucose result represents a fasting glucose, interpretation should refer to the following reference range: 55-99 mg/dL Performed By: #### 7 [id number], 5005464, 9130474, 4943485, 58966647 #### [facility] [address] [place] [address] Potassium [Moles/Vol] 4.1 mmol/L Normal 3.5-5.3 [facility] Comment on above: Performed By: #### 7 69125521, 4493117, 8863327, 5703742, 05786588 #### [facility] [address] [place] [address] Sodium [Moles/Vol] 137 mmol/L Normal 135-145 [facility] Comment on above: Performed By: #### 7 02617174, 9891406, 3367782, 4930666, 00297071 #### [facility] [address] [place] [address] Urea nitrogen [Mass/Vol] 14 mg/dL Normal 5-21 [facility] Comment on above: Performed By: #### 7 41266136, 4292736, 9934488, 7956312, 17697701 #### [facility] [address] [place] [address] Urea nitrogen/Creatinine [Mass ratio] 20 No Units Normal 10-20 [facility] Comment on above: Performed By: #### 7 30069044, 0891538, 0196074, 5839790, 85230948 #### [facility] [address] [place] [address] CBC w/ Auto Diffon Erythrocyte distribution width (RBC) [Ratio] 13.7 % Normal 10.9-14.2 [facility] Comment on above: Performed By: #### 7 66790812, 6020491, 6385037, 6717034, 31413150 #### [facility] [address] [place] [address] Hematocrit (Bld) [Volume fraction] 41.6 % Normal 34.0-46.0 [facility] Comment on above: Performed By: #### 7 73794198, 4360535, 7229899, 2879002, 81786865 #### [facility] [address] [place] [address] Hemoglobin (Bld) [Mass/Vol] 14.7 g/dL Normal 12.0-16.0 [facility] Comment on above: Performed By: #### 7 22451561, 5208716, 5764360, 5161898, 76751768 #### [facility] [address] [place] [address] MCH (RBC) [Entitic mass] 32.5 pg Normal 27.0-34.0 [facility] Comment on above: Performed By: #### 7 70757475, 6248924, 7070739, 3480259, 73947195 #### [facility] [address] [place] [address] MCHC (RBC) [Mass/Vol] 35.4 g/dL Normal 31.4-36.0 [facility] Comment on above: Performed By: #### 7 20223660, 5735683, 0963171, 1699885, 33558576 #### [facility] [address] [place] [address] MCV (RBC) [Entitic vol] 91.8 fL Normal 80.0-100.0 [facility] Comment on above: Performed By: #### 7 12958657, 5014926, 4805038, 9042747, 61510411 #### [facility] [address] [place] [address] Platelet mean volume (Bld) [Entitic vol] 9.3 fL Normal 6.4-10.8 [facility] Comment on above: Performed By: #### 7 18278272, 2029101, 4425954, 3599860, 66611417 #### [facility] [address] [place] [address] Platelets (Bld) [#/Vol] 181.0 E9/L Normal 150.0-500.0 [facility] Comment on above: Performed By: #### 7 93286279, 6050868, 7731082, 0299883, 65592287 #### [facility] [address] [place] [address] RBC (Bld) [#/Vol] 4.5 E12/L Normal 4.3-5.9 [facility] Comment on above: Performed By: #### 7 61321889, 3594434, 7541706, 7924087, 11628087 #### [facility] [address] [place] [address] WBC corrected for nucl RBC Auto (Bld) [#/Vol] 6.4 E9/L Normal 4.0-11.0 [facility] Comment on above: Performed By: #### 7 14955456, 1412700, 7134078, 3538362, 67178908 #### [facility] [address] [place] [address] CHEMISTRYOrdered By: SYSTEM SYSTEM on 05-30-2022 Anion [...] Normal >=59mL/min/1. 73 m2 FT Chem S Glucose [Mass/Vol] 115 mg/dL Normal [...] (Bld) [Mass fraction] 6.2 % High <=5.9% [facility] ChemAutoSS Consent for Treatmenton Consent for Treatment [id number] .[id number]:127 Normal [facility] HEMATOLOGYOrdered By: SYSTEM SYSTEM on [...] 3.7 E9/L Normal 2.0 - 7.5 E9/L FT HemeAutoSS HEMATOLOGYOrdered By: Boaz Topete on 05-30-2022 Erythrocyte distribution width (RBC) [Ratio] 13.7 % Normal 10.9 - 14.2 % [facility] HemeAutoSS Hematocrit (Bld) [Volume fraction] 41.6 % Normal 34.0 - 46.0 % [facility] HemeAutoSS Hemoglobin (Bld) [Mass/Vol] 14.7 g/dL Normal [...] Normal 4.0 - 11.0 E9/L [facility] HemeAutoSS GniA3rie 05-30-2022 HbA1c (Bld) [Mass fraction] 6.2 % High <=5.9 [facility] Comment on above: Performed By: #### 7 [id number], 0541141, 4979299, 9825944, 96288571 #### [facility] [address] [place] [address] XR Chest 2 Viewson 2 XR Chest [...] Oconnor M.D. Transcribed by: JODEE Technologist: HALEY De La Cruz [facility] eGFRon 05-30-2022 GFR/1.73 sq M.predicted among blacks MDRD (S/P/Bld) [Vol rate/Area] mL/min/{1.73_m2} Normal >=59 [facility] Comment on above: Order Comment: Order added by Discern Expert. Result Comment: eGFR is race adjusted. AA=. Performed By: #### 7 [id number], 9655422, 0733059, 0539134, 21056646 #### [facility] [address] [place] [address] GFR/1.73 sq M.predicted among non-blacks MDRD (S/P/Bld) [Vol rate/Area] mL/min/{1.73_m2} Normal >=59 [facility] Comment on above: Order Comment: Order added by Discern Expert. Result Comment: Mobility Specialist arnulfo kidney disease could be indicated at eGFR's of less than 60 mL/min/1.73m2. Kidney failure is indicated at less than 15 mL/min/1.73m2. Performed By: #### 7 [id number], 8079188, 6883703, 8328722, 87277362 #### [facility] [address] [place] [address] Physician Orderon 05-08-2022 Physician Order [id number] .00CD:127 Normal [facility] CBC AUTO DIFFon 11-11-2021 BASO # 0.0 103/ul Normal 0.0-0.1 [facility] Comment on above: Performed By: #### C BC #### [facility] [address] [place] [address] Dr. Farhat Mcneil Basophils/100 WBC (Bld) 0.6 % Normal 0.2-2.0 [facility] Comment on above: Performed By: #### C BC #### [facility] [address] [place] [address] Dr. Farhat Mcneil EO # 0.1 103/ul Normal 0.0-0.7 [facility] Comment on above: Performed By: #### C BC #### [facility] [address] [place] [address] Dr. Farhat Mcneil Eosinophils/100 WBC (Bld) 1.1 % Normal 0.9-7.0 [facility] Comment on above: Performed By: #### C BC #### [facility] [address] [place] [address] Dr. Farhat Mcneil Erythrocyte distribution width (RBC) [Ratio] 12.3 % Normal 11.0-15.0 [facility] Comment on above: Performed By: #### C BC #### [facility] [address] [place] [address] Dr. Farhat Mcneil Hematocrit (Bld) [Volume fraction] 43.6 % Normal 36.0-48.0 [facility] Comment on above: Performed By: #### C BC #### [facility] [address] [place] [address] Dr. Farhat Mcneil Hemoglobin (Bld) [Mass/Vol] 15.0 g/dL Normal 12.0-16.0 [facility] Comment on above: Performed By: #### C BC #### [facility] [address] [place] [address] Dr. Farhat Mcneil IG # 0.02 10e3/ul Normal 0.00-0.03 [facility] Comment on above: Performed By: #### C BC #### [facility] [address] [place] [address] Dr. Farhat Mcneil IG % 0.3 % Normal 0.0-0.5 [facility] Comment on above: Performed By: #### C BC #### [facility] [address] [place] [address] Dr. Farhat Mcneil LYMPH # 2.2 103/ul Normal 1.2-3.8 [facility] Comment on above: Performed By: #### C BC #### [facility] [address] [place] [address] Dr. Farhat Mcneil Lymphocytes/100 WBC (Bld) 31.0 % Normal 20.5-60.0 [facility] Comment on above: Performed By: #### C BC #### [facility] [address] [place] [address] Dr. Farhat Mcneil MANUAL DIFF REQ NO Normal [facility] Comment on above: Performed By: #### C BC #### [facility] [address] [place] [address] Dr. Farhat Mcneil MCH (RBC) [Entitic mass] 31.5 pg Normal 26.7-34.0 [facility] Comment on above: Performed By: #### C BC #### [facility] [address] [place] [address] Dr. Farhat Mcneil MCHC (RBC) [Mass/Vol] 34.4 g/dL Normal 29.9-35.2 [facility] Comment on above: Performed By: #### C BC #### [facility] [address] [place] [address] Dr. Farhat Mcneil MCV (RBC) [Entitic vol] 91.6 fL Normal 81.0-99.0 [facility] Comment on above: Performed By: #### C BC #### [facility] [address] [place] [address] Dr. Farhat Mcneil MONO # 0.5 103/ul Normal 0.3-0.8 [facility] Comment on above: Performed By: #### C BC #### [facility] [address] [place] [address] Dr. Farhat Mcneil Monocytes/100 WBC (Bld) 6.3 % Normal 1.7-12.0 [facility] Comment on above: Performed By: #### C BC #### [facility] [address] [place] [address] Dr. Farhat Mcneil NEUT # 4.3 103/ul Normal 1.4-6.5 [facility] Comment on above: Performed By: #### C BC #### [facility] [address] [place] [address] Dr. Farhat Mcneil Neutrophils/100 WBC (Bld) 60.7 % Normal 43.0-75.0 [facility] Comment on above: Performed By: #### C BC #### [facility] [address] [place] [address] Dr. Farhat Mcneil Platelet mean volume (Bld) [Entitic vol] 10.6 fL Normal 9.5-13.5 [facility] Comment on above: Performed By: #### C BC #### [facility] [address] [place] [address] Dr. Farhat Mcneil PLT 187 103/ul Normal 150-450 [facility] Comment on above: Performed By: #### C BC #### [facility] [address] [place] [address] Dr. Farhat Mcneil RBC 4.76 106/ul Normal 4.20-5.40 [facility] Comment on above: Performed By: #### C BC #### [facility] [address] [place] [address] Dr. Farhat Mcneil WBC 7.1 103/ul Normal 4.0-11.0 [facility] Comment on above: Performed By: #### C BC #### [facility] [address] [place] [address] Dr. Farhat Mcneil LIPID PROFILEon 11-11-2021 CHOL-HDL RATIO NORM SEE BELOW Normal [facility] Comment on above: Result Comment: 3.3 - 4.4 LOW RISK 4.4 - 7.1 AVERAGE RISK 7.1 - 11.0 MODERATE RISK >11.0 HIGH RISK Performed By: #### L IPID, T4, CMP, TSH #### [facility] [address] [place] [address] Dr. Farhat Mcneil Cholesterol [Mass/Vol] 286 mg/dL Critically high <=200 [facility] Comment on above: Performed By: #### L IPID, T4, CMP, TSH #### [facility] [address] [place] [address] Dr. Farhat Mcneil Cholesterol in HDL [Mass/Vol] 44 mg/dL Normal [facility] Comment on above: Performed By: #### L IPID, T4, CMP, TSH #### [facility] [address] [place] [address] Dr. Farhat Mcneil Cholesterol in LDL [Mass/Vol] 187.2 mg/dL Normal [facility] Comment on above: Performed By: #### L IPID, T4, CMP, TSH #### [facility] [address] [address] [address] Farhat Mcneil Cholesterol.total/Cho lesterol in HDL [Mass ratio] 6.5 {ratio} Normal [facility] Comment on above: Performed By: #### L IPID, T4, CMP, TSH #### [facility] [address] [address] [address] Farhat Mcneil HDL NORMAL > or = 60 mg/dl - LO W CARDIOVASCULAR RISK <40 mg/dl - HIGH CARDIOVASCULAR RISK Normal [facility] Comment on above: Performed By: #### L IPID, T4, CMP, TSH #### [facility] [address] [address] [address] Farhat Mcneil LDL CALC NORMAL SEE BELOW Normal [facility] Comment on above: Result Comment: <100 mg/dl OPTIMAL 100 - 129 mg/dl NEAR OR ABOVE OPTIMAL 130 - 159 mg/dl BORDERLINE HIGH 160 - 189 mg/dl HIGH >190 mg/dl VERY HIGH Performed By: #### L IPID, T4, CMP, TSH #### [facility] [address] [address] [address] Farhat Mcneil Triglyceride [Mass/Vol] 274 mg/dL Critically high <=150 [facility] Comment on above: Performed By: #### L IPID, T4, CMP, TSH #### [facility] [address] [address] [address] Farhat Mcneil VLDL CALC 54.8 mg/dL Normal [facility] Comment on above: Performed By: #### L IPID, T4, CMP, TSH #### [facility] [address] [address] [address] Farhat Mcneil PROF 14(COMP METB)on 022 Albumin [Mass/Vol] 3.8 g/dL Normal 3.5-5.0 [facility] Comment on above: Performed By: #### L IPID, T4, CMP, TSH #### [facility] [address] [address] [address] Farhat Mcneil Albumin/Globulin [Mass ratio] 1.0 {ratio} Normal [facility] Comment on above: Performed By: #### L IPID, T4, CMP, TSH #### [facility] [address] [address] [address] Farhat Mcneil ALP [Catalytic activity/Vol] 102 U/L Normal 38-126 [facility] Comment on above: Performed By: #### L IPID, T4, CMP, TSH #### [facility] [address] [place] [address] Dr. Farhat Mcneil ALT [Catalytic activity/Vol] 46 U/L Normal 9-52 [facility] Comment on above: Performed By: #### L IPID, T4, CMP, TSH #### [facility] [address] [place] [address] Dr. Farhat Mcneil Anion gap [Moles/Vol] 9.2 mmol/L Normal [facility] Comment on above: Performed By: #### L IPID, T4, CMP, TSH #### [facility] [address] [place] [address] Dr. Farhat Mcneil AST [Catalytic activity/Vol] 21 U/L Normal 14-36 [facility] Comment on above: Performed By: #### L IPID, T4, CMP, TSH #### [facility] [address] [place] [address] Dr. Farhat Mcneil Bilirubin [Mass/Vol] 0.3 mg/dL Normal 0.2-1.3 [facility] Comment on above: Performed By: #### L IPID, T4, CMP, TSH #### [facility] [address] [place] [address] Dr. Farhat Mcneil Calcium [Mass/Vol] 9.0 mg/dL Normal 8.4-10.2 [facility] Comment on above: Performed By: #### L IPID, T4, CMP, TSH #### [facility] [address] [place] [address] Dr. Farhat Mcneil Chloride [Moles/Vol] 103 mmol/L Normal 98-107 [facility] Comment on above: Performed By: #### L IPID, T4, CMP, TSH #### [facility] [address] [address] [address] Farhat Mcneil CO2 [Moles/Vol] 30.7 mmol/L Critically high 22.0-30.0 [facility] Comment on above: Performed By: #### L IPID, T4, CMP, TSH #### [facility] [address] [address] [address] Farhat Mcneil Creatinine [Mass/Vol] 0.75 mg/dL Normal 0.52-1.04 [facility] Comment on above: Performed By: #### L IPID, T4, CMP, TSH #### [facility] [address] [address] [address] Farhat Mcneil EGFR-AF OMANI >60 Normal >=60 [facility] Comment on above: Performed By: #### L IPID, T4, CMP, TSH #### [facility] [address] [place] [address] Dr. Farhat Mcneil EGFR-NON AF OMANI >60 Normal >=60 [facility] Comment on above: Performed By: #### L IPID, T4, CMP, TSH #### [facility] [address] [address] [address] Farhat Mcneil Globulin (S) [Mass/Vol] 3.7 g/dL Normal [facility] Comment on above: Performed By: #### L IPID, T4, CMP, TSH #### [facility] [address] [address] [address] Farhat Mcneil Glucose [Mass/Vol] 126 mg/dL Critically high 74-106 [facility] Comment on above: Performed By: #### L IPID, T4, CMP, TSH #### [facility] [address] [address] [address] Farhat Mcneil Potassium [Moles/Vol] 3.9 mmol/L Normal 3.4-5.0 [facility] Comment on above: Performed By: #### L IPID, T4, CMP, TSH #### [facility] [address] [address] [address] Farhat Mcneil Protein [Mass/Vol] 7.5 g/dL Normal 6.1-8.2 [facility] Comment on above: Performed By: #### L IPID, T4, CMP, TSH #### [facility] [address] [place] [address] Dr. Farhat Mcneil Sodium [Moles/Vol] 139 mmol/L Normal 137-145 [facility] Comment on above: Performed By: #### L IPID, T4, CMP, TSH #### [facility] [address] [place] [address] Dr. Farhat Mcneil Urea nitrogen [Mass/Vol] 11.0 mg/dL Normal 7.0-17.0 [facility] Comment on above: Performed By: #### L IPID, T4, CMP, TSH #### [facility] [address] [place] [address] Dr. Farhat Mcneil Urea nitrogen/Creatinine [Mass ratio] 14.7 mg/mg Normal [facility] Comment on above: Performed By: #### L IPID, T4, CMP, TSH #### [facility] [address] [place] [address] Dr. Farhat Mcneil T4on 11-11-2021 T4 [Mass/Vol] 7.60 ug/dL Normal 5.53-11.00 [facility] Comment on above: Performed By: #### L IPID, T4, CMP, TSH #### [facility] [address] [place] [address] Dr. Farhat Mcneil TSHon 11-11-2021 TSH 2.278 uIU/mL Normal 0.470-4.680 [facility] Comment on above: Performed By: #### L IPID, T4, CMP, TSH #### [facility] [address] [place] [address] Dr. Farhat Mcneil TSH RANGE SEE BELOW Normal [facility] Comment on above: Result Comment: <0.3 4 UIU/ml HYPERTHYROID 0.34-5.60 UIU/ml EUTHYROID >5.60 UIU/ml HYPOTHYROID Performed By: #### L IPID, T4, CMP, TSH #### [facility] [address] [place] [address] Dr. Farhat Mcneil MRI Shoulder w/o + [...] by Josh Salguero on 10/21/2021 0956 Normal [facility] Social Worker Delinquency Prevention Coding Summary.on 10-05-2021 Coding Summary. CD:[id number] G h0bWw+PGhlYWQ+DW6GYKF aZ87yuVOluF3ND6iXKC9C PUKUXPUESM2JSF8sdXJ2L AdaX4VzgbKi FcqyfTCpMD01BXr1QSC5h QjiDGemjN1qbIDwK0n9Pp TwHF46xG66EQizUOVyApC 3LjZpbjsgbWFy C3wfYvUibEAyPuu+PHRhY mxlIHdpZHRoPScxMDAlJy IhwUlvGD2oDu9wZVIxIOZ vbGxhcHNlOiBj h1sbAZRqGPsnON0arItyX 3VzjGG3NUWtn6h2Ab43qK I+VTFzWGH2pZkuKHlsn07 5BmBve9umYRA6 lTHiXBwyUYF1U50xa5P6G WEdUIFyLSL5dDI2jG0bzH qfvophE3BmsRDjNxA7YHK 5mWNkhV7vyXbc ugvovB2xQqm+O87MKC0GE URZGZ7HZrp2R8JeRjbacN I+DU44OKExJW07jBRnaZR uz4gtiCm5MjTx UEMjVKD2sWqqDZlnj4QoC LXzL63bnVChd9F4NNMaiG cwzHGiRtCbaOA8dT7gOTa wdvvos1xnxxyz Rmxcu3sarv25oX12A35qD OlpOKUkFNO4IAClIAKvbL zfom1wqN1zPs1+TYgep0c ew1fayZx0XrXm LQCertKusSyfTZC7w4UzW y51H3EliDlba3IuGvq6fp 91bVBza9E1hKQ5UDhmTJH uoI5fUXuvRhU8 ERJsCyTlfJ36dRVwMRgkO v1qgAqkjDjzSJ4xMFDrgj hsPWRotZ1xSJIlxGLzeOi kXX9hFLXnwkmr m793EbYtIYB5HVBydJVaX 3DgpA0qOiTyJGZhYTWiI2 ZmnDWfUZrtZ244XZxsYiT 0EJQffaOgY2Cv WDZhiWubEdH9t4H7Hz1Zl 1WbgzebVOY8DInaCCJjZu K0NhXhViZ0I2AsPfj0GCP gaSanHF9fV6Zb LBKbtsyctnfymXB4CPQjM SAjdZ92qYFaUJhlQk8rg1 F7d751JGSfEBSpjF48Uc8 udDogMTBwdCBU dQ4stnvca0lxlojfNtDhP MPsUYv0QKr1ESHzjKwhLu GzFGJ7IpU4IQB0gRCceJ3 kvQgpzktzbC2p Oyc+N22rdJ1gNJU3NXA5j hbkFZZuqwYqYX57NS15H9 RyPjwvdGFibGU+PGRpdiB zkWbaEH9zPhHi d5dna6NnWWlpP6HvNUFwP VbvHug3DQZgUGL7fNX7oP 4eARGeQIkpa7J4uIP7U0D vwsBspc7pv5zx YWPkILqnK51ceBEot8C1V GBunTJ3HJTspQysZvZkoB 93Oyc+FQOsbDvwn9ClFdx pl2gms2dicNn9 LqZrMKLqvoIhzNxpSSK4o 4VpQe65E81tNKfoWLRjBK TuCKGaJGVqzGaehf6ktU3 wIi8+PGNvbCB3 oCY9tF5vFGFcBfJ4GLgdJ 584BfHesXOqWxhqn3fzd6 nmoZo3EyAfUMWfpaTomJi pNST6s0LvHn25 T01hKSlyKRQsBAFhSHIyP HSxvTesjk6ttW4cCi9+PC 8kf6tvsx79rM49mUP+PHR jRXV4kCdjTEha PRRpnQ2mXNywCvJ1MOTdM wPodV76jLHvEZesVp2zcB lapYsvAB1fHZUyfmqnf22 5RbPfl4fyALDy oOByCErlJNP7C91rs4Z9D TDgGMDrJDM5fOB2nB9mpD lnbjogbGVmdDsgdmVydGl lAHpwHOjiC304 IHRvcDsnPlBhdGllbnQgT rRfPHv3R2DjRjy8UNGaeL bwGT6kbDApZJnwKo5lhDm zvVezTK6oVVIv gbdnc874RxWnm2nnQCCug GDnASexVDU5D22mw3Z5FK PwXJOfOUZ7dGR4sM0jnBy nbjogbGVmdDsg ljOsfVqfYDsgGYcsP079Y HRvcDsnPkJpcnRoIERhdG L0PG02LD51lTGpp2X5nVK 4R2SiEGUasgjr zkvyyYW9OTZkNEOwrN47R j8dvZbbCf0lZHJcLOX9NM BvzSPfX9QvjD8vIvYmMJL lNLRyW4LspDBn XUooI745ANsxYkW5KNWmm jDpL8GqOILseFirRsT6p9 L1Bi2VJ1R4QY23LU40sET cx4A8mJA1W7Qy REUcjjtkdhrbtZV6BSIeS SVyqB17Gw3dhByzLv3nII TzKLM7QNGnyRTrW8RrhI7 yOiAjMDAwMDAw M1BbxWNrIRtbP268WLboY kF8PFMsqvCsP6IzWGJtaU irCsW2i0M6Vx3MLFw1XD3 4SR03zSIdo0V7 xBA2H3WiVPRthhuqatvkd KX2HLWxWXCulF37Wv1ilF kwGh3gQMWdCOZ3DKEuaOO wH2WblU1vFiMk YALyGAIfT4IuzRTgZVtjY 613BGzjBgH2TRWshgYaZ5 SiRWIwsLhzUgZ5g6K2Gb2 CQUKsQN31RIN2 wVL0UV90ZL00D6YhEjouu GFibGU+PHRhYmxlIHdpZH RoPScxMDAlJyBzdHlsZT0 yJp1jESOxOBSl gMiibOXkAyVyq5daVJOmO ApdOW8tbRawT4JooOV7DT Yvm4y4Sp38G72cN0VexVC +MYZtqPW6hCJ6 dU3gNqBnRmF1GGkxZ662N iNztHLpCtcbt2jxg4ltvD l7SlV1TCTdqdHuxCadVPL 4u6WbMm15L23h IHdpZHRoPSIxNSUiIHZhb Teizy8iwN8gLf7+PGNvbC J9oRI3fC4fBhYcTkA4XSu fB059MdZzrDOu Kfave6ccs8zpwDk4ZgItM PLlqtJixYteQMU6y0YpTj 74F8IjxGygu2MmRyq2fh1 4xWJzj7A2jYJ0 P8VxWTZjocfzoBDbrIlqK G8vVZZpgujyDNOwfV6xYI DcE2b8YmDjVhR4HOjgU6O evwH3UDRuiZRc SYliLCX8M79zp6B2BCZyM YXnNJP6uKN7sZ1xnPpvdy ogbGVmdDsgdmVydGljYWw hEYnmL027KWEf eNblIKXaaL0xWLAomATkc CzsVX0mKRUhloyqEt2ER3 JFLCBMVUNSRVRJQSBNPC9 2LE20uAFlo6C7 fUI9W0ZpKPVjpzikbnsqe HX2XQTgGVOnnK78oNJxVG hnOh1hw6A8h566NOBhLJI hpQ81Iv7wwLqe OWJtgRBYcN1lseslu2qeg hioRyHjWPDwERj9HBr3VA SawWejBmWbNKT3OyJ5OBI 9xTIljQ2ynXzr bpilmU3fXsb+MDkvMTEvM Rt5KMtfdXR+ZGQmIHZ2uH bbZLpiKBTldX5zBZMpM0h 6MnJpQbS9UFpm C3QwAWFghcjvLw77iO5rR mAgUxK6ZMuyE9MzhjQ4FO HnrBUzZToeACJ2I26cj1O 0PQZlZCLnLGN7 kLX1yF5koVjwjnkofIQgq DsgdmVydGljYWwtYWxpZ2 46IHRvcDsnPjYwIFllYXJ rXT23GG75aVSq g5C5cCA0Z4CxXLWprhbzk ixjeJI9MNWkIMIirX31sP XxSYhwQf2dv7R9d400DBN gWGTevH92Uh0o eWqvOBJonTCOnJ5gqaetz 4ftsxgeGvOjQJUgFGs7BX b6ALFhaLqnByDmJOI1OgH 5PVO4oTKapC0u xDckddhqdB5fIzp+RmVtY NgsIB95OI00eDNce9S0kT K2W3IhZLKucwbekigwwII 7ZRApZCJemW15 aYGqEJtrKp7ys6O0d879R CZcYWBqmD16Lg6rjCrqFU FofMKVpU0jgqfuq4bvvfz gIzAwMDAwMDt0 EXy7UDRszJqnUfJpSSZ6G rK2DDU9fEMdaV0vuIubku iwmM3hIzj+U4L3yXW5mSY udDwvdGQ+PC90 li82Y9YjYsrvHfa8ECRrA KF1fQO1dG6gVFSeSLgik3 Q1zJG8J3SpenAyje2gf1d cIUHxQTkmM53z zWNic2A1LMNvzBB1UAIbg AdfRiMgmG00Kvl+PGNvbG ysy2OqYaykg1oey0ogpCz 9IjMwJSIgdmFs vHaaJNP1r8DcRi86Y47zR HdpZHRoPSIzMCUiIHZhbG mkqn9laB0lDr1+PGNvbCB 9sAA1nP8qCvZb HaL7SDslD652GrPdxMZwV btyz6klj2qvfZr1IgFtIG YtajOtyFpfOOI3r8RkSt8 9R1IdpEwxg3Aa Rog8ix51hSJze3B4oRY3Y 3BhZGRpbmctbGVmdDogMC 5dZCWbodecEOPtaH6yQCE iQ2j2IyQbUbO7 HTwfM7LeehT4RMImlGBcA NIlmUSYgK8wuikxo4blne wlFaSxEBBjYVm9EXg7ECW saWduOiBsZWZ0 VtM2NNJ4kWOfcD3enNlkv pmxnF5hHgw+FRb0z4xekR EjVF6fdSV7OI24UH77hYI cv3W1hJO9Y5Fp DIXorachzvoycHH9MAKuA CKhoK92Tk7diTwsUj7zLD WoVME2GJDzuMEpM6CzrT1 yOiAjMDAwMDAw I6RdvSYbEWhzI264AXjwR zL8YCVapaBiB0ZfKHZczH ytXwA5m5L9Ne6FTC18AP4 7VC74mVPgs1L6 eFO0A0ToPVRvarqxqwcym UI4JMPvVQOviD02Bv7nnQ wsKe0uVKUiQCF9RVVvgDJ uR0WuiC4nJeWo VQKbKUCmS6TmzPMaEOofG 464BFdzUsD7MOVparCtR2 DbLRCfbUuhXnZ8r6K1Xh6 XKy90BR79RG31 kSJdy1O6zKC4K1YxBJPvq glfdtwelFM1QBFoDDLxcS 26Dj9rsSenRk2jHTStZVV 9TCZejOOtJ5Vv eO5hNlLsNOVdJGJaM2Myv ILuZNamT035DOdbXtT9QP UdcpQlS0FxYKNyxMwmLiZ 0n6G7Do2VOKme qzq5G4CfXpihiGJ+PC90Y DFvUX81gKXbcJJaz0hqwB s6YjXcMOUlAKD6nUrcEHf cq0QjQECxG49v bGFw (more content not included)... Normal [facility] Consent for Treatmenton -3 Consent for Treatment [id number] .[id number]:127 Normal [facility] NM Bone Scan 3 Phaseon [...] 21.3 Imaging Post Administration (hrs): 3 Normal [facility] Physician Orderon 09-12-2021 Physician Order [id number] 1.00CD:127 Normal [facility] MRI Shoulder w/o Lefton -0 [...] by Jackson Ma on 08/28/2021 0949 Normal [facility] Specialist FLUORO FOR SURGICAL PROCEDUR ESon [...] Phillip Corral MD 09/11/20 Final result Normal [facility] Rory, Chpo Incoming Radiant Results From [employer] - 09/11/2020 5:09 PM EST FLUORO FOR SURGICAL PROCEDURES : 09/11/2020 3:53 PM CLINICAL HISTORY: Lumbar Diskectomy . COMPARISON: None available. Intraoperative fluoroscopy was provided for Dr. Gabriel gonzalez. A total of 1 seconds of fluoroscopy was used, with 4 fluoroscopic stills saved. No diagnostic images were obtained. Please see Dr. Rios surgical notes for completeness. [place] FLUORO FOR SURGICAL PROCEDURES : 09/11/2020 3:53 PM CLINICAL HISTORY: Lumbar Diskectomy . COMPARISON: None available. Intraoperative fluoroscopy was provided for Dr. Gabriel gonzalez. A total of 1 seconds of fluoroscopy was used, with 4 fluoroscopic stills saved. No diagnostic images were obtained. Please see Dr. Rios [facility] notes for completeness. [facility] Glucoseon 09-11-2020 Glucose [Mass/Vol] 145 mg/dL Critically high 60-115 [facility] Comment on above: Performed By: #### P GLU #### [facility] [address] [facility] [place] [address] POC Performed on ACCU-CHEK Normal [facility] Comment on above: Performed By: #### P GLU #### [facility] [address] [facility] [place] [address] Glucose [Mass/Vol] 145 mg/dL High 60 - 115 mg/dl [facility] [place] Interpretation and review of laboratory results Abnormal [facility], [place] Performed on ACCU-CHEK [facility], [place] Glucose [Mass/Vol] 131 mg/dL Critically high 60-115 [facility] Comment on above: Performed By: #### P GLU #### [facility] [address] [place] [address] POC Performed on ACCU-CHEK Normal [facility] Comment on above: Performed By: #### P GLU #### [facility] [address] [facility] [place] [address] Glucose [Mass/Vol] 131 mg/dL High 60 - 115 mg/dl [facility], [place] Interpretation and review of laboratory results Abnormal [facility], [place] Performed on ACCU-CHEK [facility], [place] Surgical Specimen 09-11-20 Surgical Specimen [facility] [address] [place] [address] FINAL SURGICAL PATHOLOGY REPORT Patient Name: JORDY DUNNE Accession No: [id number] Age Sex: 1960 Location: [facility] [id number] Account No: [id number] Collected: 09/11/2020 Med Rec No: [id number] Received: 09/12/2020 Attend Phys: MAGDALENO RIOS Completed: [...] one cassette after brief decalcification. ALIFA/ALIFA CPT: 38502 X1 23598 X1 VENKATESH COTTON M.D. 09/13/2020 Electronically signed out by Page 1 of 1 [facility] Comment on above: Performed By: #### S UR #### [facility] [address] [place] [address] XR CHEST PORTABLEon 09-11-20 20 INR Coag (Bld) [Relative time] NO ACUTE ACTIVE CARDIOPULMONARY PROCESS [place] EXAMINATION: CHEST PORTABLE VIEW CLINICAL HISTORY: Back pain COMPARISONS: None FINDINGS: Single views of the chest is submitted. The cardiac silhouette is enlarged. Pulmonary vascular unremarkable. Right sided trachea. No focal infiltrates. No Pneumothoraces. [place] Rory, Ch[employer] Incoming Radiant Results From [employer] - 09/11/2020 7:58 AM EST EXAMINATION: CHEST PORTABLE VIEW CLINICAL HISTORY: Back pain COMPARISONS: None FINDINGS: Single views of the chest is submitted. The cardiac silhouette is enlarged. Pulmonary vascular unremarkable. Right sided trachea. No focal infiltrates. No Pneumothoraces. IMPRESSION: NO ACUTE ACTIVE CARDIOPULMONARY PROCESS [place] XR LUMBAR SPINE (MIN 4 VIEWS )on 09-11-2020 Rory, Chpo Incoming Radiant Results From [employer] - 09/11/2020 10:22 AM EST EXAMINATION: XR [...] show degenerative changes.. IMPRESSION NO ACUTE FRACTURE. [place] EXAMINATION: XR LUMBAR SPINE (MIN 4 [...] show degenerative changes.. IMPRESSION NO ACUTE FRACTURE. [place] APTTon 09-10-2020 aPTT Coag (Bld) [Time] 30.5 s [place] Comment on above: Effective 07/25/2020: Heparin Therapeutic Range: 64.0 98.0 seconds. CBC Auto Differentialon 08-22 Basophils (Bld) [#/Vol] 0.1 10*3/uL 0 - 0.2 K/uL [place] Basophils/100 WBC (Bld) 0.7 % [place] Eosinophils (Bld) [#/Vol] 0.0 10*3/uL 0 - 0.7 K/uL [place] Eosinophils/100 WBC (Bld) 0.2 % [place] Erythrocyte distribution width (RBC) [Ratio] 13.2 % 11.5 - 14.5 % [place] Hematocrit (Bld) [Volume fraction] 41.0 % 37 - 47 % [place] Hemoglobin (Bld) [Mass/Vol] 14.2 g/dL 12 - 16 g/dL [place] Interpretation and review of laboratory results Abnormal [place] Lymphocytes (Bld) [#/Vol] 2.9 10*3/uL 1 - 4.8 K/uL [place] Lymphocytes/100 WBC (Bld) 25.0 % [place] MCH (RBC) [Entitic mass] 32.9 pg High 27 - 31.3 pg [place] MCHC (RBC) [Mass/Vol] 34.6 % 33 - 37 % [place] MCV (RBC) [Entitic vol] 95.0 fL 82 - 100 fL [place] Monocytes (Bld) [#/Vol] 0.4 10*3/uL 0.2 - 0.8 K/uL [place] Monocytes/100 WBC (Bld) 3.8 % [place] Neutrophils Absolute 8.2 K/uL High 1.4 - 6 .5 K/uL [place] Neutrophils/100 WBC (Bld) 70.3 % [place] Platelets (Bld) [#/Vol] 196 10*3/uL 130 - 400 K/uL [place] RBC (Bld) [#/Vol] 4.32 10*6/uL [place] WBC (Bld) [#/Vol] 11.6 10*3/uL High 4.8 - 10.8 K/uL [place] CBC With Platelet and Differ entialon 09-10-2020 Basophils (Bld) [#/Vol] 0.1 10*3/uL Normal 0.0-0.2 [facility] Comment on above: Performed By: #### C BCWD #### [facility] [address] [place] [address] Basophils/100 WBC (Bld) 0.7 % Normal [facility] Comment on above: Performed By: #### C BCWD #### [facility] [address] [place] [address] Eosinophils (Bld) [#/Vol] 0.0 10*3/uL Normal 0.0-0.7 [facility] Comment on above: Performed By: #### C BCWD #### [facility] [address] [place] [address] Eosinophils/100 WBC (Bld) 0.2 % Normal [facility] Comment on above: Performed By: #### C BCWD #### [facility] [address] [place] [address] Erythrocyte distribution width (RBC) [Ratio] 13.2 % Normal 11.5-14.5 [facility] Comment on above: Performed By: #### C BCWD #### [facility] [address] [place] [address] Hematocrit (Bld) [Volume fraction] 41.0 % Normal 37.0-47.0 [facility] Comment on above: Performed By: #### C BCWD #### [facility] [address] [place] [address] Hemoglobin (Bld) [Mass/Vol] 14.2 g/dL Normal 12.0-16.0 [facility] Comment on above: Performed By: #### C BCWD #### [facility] [address] [place] [address] Lymphocytes (Bld) [#/Vol] 2.9 10*3/uL Normal 1.0-4.8 [facility] Comment on above: Performed By: #### C BCWD #### [facility] [address] [place] [address] Lymphocytes/100 WBC (Bld) 25.0 % Normal [facility] Comment on above: Performed By: #### C BCWD #### [facility] [address] [place] [address] MCH (RBC) [Entitic mass] 32.9 pg Critically high 27.0-31.3 [facility] Comment on above: Performed By: #### C BCWD #### [facility] [address] [place] [address] MCHC (RBC) [Mass/Vol] 34.6 % Normal 33.0-37.0 [facility] Comment on above: Performed By: #### C BCWD #### [facility] [address] [place] [address] MCV (RBC) [Entitic vol] 95.0 fL Normal 82.0-100.0 [facility] Comment on above: Performed By: #### C BCWD #### [facility] [address] [place] [address] Monocytes (Bld) [#/Vol] 0.4 10*3/uL Normal 0.2-0.8 [facility] Comment on above: Performed By: #### C BCWD #### [facility] [address] [place] [address] Monocytes/100 WBC (Bld) 3.8 % Normal [facility] Comment on above: Performed By: #### C BCWD #### [facility] [address] [place] [address] Neutrophils (Bld) [#/Vol] 8.2 10*3/uL Critically high 1.4-6.5 [facility] Comment on above: Performed By: #### C BCWD #### [facility] [address] [place] [address] Neutrophils/100 WBC (Bld) 70.3 % Normal [facility] Comment on above: Performed By: #### C BCWD #### [facility] [address] [place] [address] Platelets (Bld) [#/Vol] 196 10*3/uL Normal 130-400 [facility] Comment on above: Performed By: #### C BCWD #### [facility] [address] [place] [address] RBC (Bld) [#/Vol] 4.32 10*6/uL Normal 4.20-5.40 [facility] Comment on above: Performed By: #### C BCWD #### [facility] [address] [place] [address] WBC (Bld) [#/Vol] 11.6 10*3/uL Critically high 4.8-10.8 [facility] Comment on above: Performed By: #### C BCWD #### [facility] [address] [place] [address] COVID-19on 09-10-2020 COVID-19, NAAT Not Detected Normal Not Detect [facility] Comment on above: Result Comment: Rapi [...] authorized laboratories. Fact sheet for Healthcare Providers: https://www.fda.gov/media/972515/download Fact sheet for Patients: https://www.fda.gov/media/154353/download METHODOLOGY: Isothermal Nucleic Acid Amplification Performed By: #### C OVPC #### [facility] [address] [facility] [address] SARS-CoV-2, NAAT Not Detected Not Detected [place], [place] Comment on above: Rapid NAAT: Negative [...] authorized laboratories. Fact sheet for Healthcare Providers: https://www.fda.gov/media/637912/download Fact sheet for Patients: https://www.fda.gov/media/189909/download METHODOLOGY: Isothermal Nucleic Acid Amplification Comprehensive Metabolic Pane felipa 09-10-2020 Albumin [Mass/Vol] 3.9 g/dL Normal 3.5-4.6 [facility] Comment on above: Performed By: #### C MP #### [facility] [address] [facility] [address] ALP [Catalytic activity/Vol] 76 U/L Normal 40-130 [facility] Comment on above: Performed By: #### C MP #### [facility] [address] [facility] [address] ALT [Catalytic activity/Vol] 22 U/L Normal 0-33 [facility] Comment on above: Result Comment: Spec imen hemolysis has exceeded the interference as defined by Shikha. Result may be affected. Suggest recollection if clinically indicated. Performed By: #### C MP #### [facility] [address] [facility] [address] Anion gap [Moles/Vol] 9 mmol/L Normal 9-15 [facility] Comment on above: Performed By: #### C MP #### [facility] [address] [facility] [address] AST [Catalytic activity/Vol] 18 U/L Normal 0-35 [facility] Comment on above: Result Comment: Spec imen hemolysis has exceeded the interference as defined by Shikha. Value may be falsely increased. Suggest recollection if clinically indicated. Performed By: #### C MP #### [facility] [address] [place] [address] Bilirubin [Mass/Vol] 0.3 mg/dL Normal 0.2-0.7 [facility] Comment on above: Performed By: #### C MP #### [facility] [address] [place] [address] Calcium [Mass/Vol] 9.2 mg/dL Normal 8.5-9.9 [facility] Comment on above: Performed By: #### C MP #### [facility] [address] [place] [address] Chloride [Moles/Vol] 103 mmol/L Normal 95-107 [facility] Comment on above: Performed By: #### C MP #### [facility] [address] [place] [address] CO2 [Moles/Vol] 28 mmol/L Normal 20-31 [facility] Comment on above: Performed By: #### C MP #### [facility] [facility] [address] [place] [address] Creatinine [Mass/Vol] 0.67 mg/dL Normal 0.50-0.90 [facility] Comment on above: Performed By: #### C MP #### [facility] [address] [place] [address] GFR/1.73 sq M predicted among blacks MDRD (S/P/Bld) [Vol rate/Area] mL/min/{1.73_m2} Normal >60 [facility] Comment on above: Result Comment: >60 mL/min/1.73m2 EGFR, calc. for ages 18 and older using the MDRD formula (not corrected for weight), is valid for stable renal function. Performed By: #### C MP #### [facility] [address] [place] [address] GFR/1.73 sq M.predicted MDRD (S/P/Bld) [Vol rate/Area] mL/min/{1.73_m2} Normal >60 [facility] Comment on above: Result Comment: >60 mL/min/1.73m2 EGFR, calc. for ages 18 and older using the MDRD formula (not corrected for weight), is valid for stable renal function. Performed By: #### C MP #### [facility] [address] [place] [address] Globulin (S) [Mass/Vol] 2.4 g/dL Normal 2.3-3.5 [facility] Comment on above: Performed By: #### C MP #### [facility] [address] [place] [address] Glucose [Mass/Vol] 189 mg/dL Critically high 70-99 [facility] Comment on above: Performed By: #### C MP #### [facility] [address] [place] [address] Potassium [Moles/Vol] 4.2 mmol/L Normal 3.4-4.9 [facility] Comment on above: Result Comment: Spec imen hemolysis has exceeded the interference as defined by Shikha. Value may be falsely increased. Suggest recollection if clinically indicated. Performed By: #### C MP #### [facility] [address] [place] [address] Protein [Mass/Vol] 6.3 g/dL Normal 6.3-8.0 [facility] Comment on above: Performed By: #### C MP #### [facility] [address] [place] [address] Sodium [Moles/Vol] 140 mmol/L Normal 135-144 [facility] Comment on above: Performed By: #### C MP #### [facility] [address] [place] [address] Urea nitrogen [Mass/Vol] 17 mg/dL Normal 6-20 [facility] Comment on above: Performed By: #### C MP #### [facility] [address] [place] [address] Albumin [Mass/Vol] 3.9 g/dL 3.5 - 4.6 g/dL [place] ALP [Catalytic activity/Vol] 76 U/L 40 - 130 U/L [place] ALT [Catalytic activity/Vol] 22 U/L 0 - 33 U/L [place] Comment on above: Specimen hemolysis h as exceeded the interference as defined by Shikha. Result may be affected. Suggest recollection if clinically indicated. Anion gap [Moles/Vol] 9 mmol/L [place], [place] AST [Catalytic activity/Vol] 18 U/L 0 - 35 U/L [place] Comment on above: Specimen hemolysis h as exceeded the interference as defined by Shikha. Value may be falsely increased. Suggest recollection if clinically indicated. Bilirubin Ql (U) 0.3 mg/dL 0.2 - 0.7 mg/dL [place] Calcium [Mass/Vol] 9.2 mg/dL 8.5 - 9.9 mg/dL [place] Chloride [Moles/Vol] 103 mmol/L [place] CO2 [Moles/Vol] 28 mmol/L [place] Creatinine [Mass/Vol] 0.67 mg/dL 0.5 - 0.9 mg/dL [place] GFR >60.0 >60 [place] Comment on above: >60 mL/min/1.73m2 EG FR, calc. for ages 18 and older using the MDRD formula (not corrected for weight), is valid for stable renal function. GFR Non- >60.0 >60 [place] Comment on above: >60 mL/min/1.73m2 EG FR, calc. for ages 18 and older using the MDRD formula (not corrected for weight), is valid for stable renal function. Globulin (S) [Mass/Vol] 2.4 g/dL 2.3 - 3.5 g/dL [place] Glucose [Mass/Vol] 189 mg/dL High 70 - 99 mg/dL [place], [place] Interpretation and review of laboratory results Abnormal [place] Potassium [Moles/Vol] 4.2 mmol/L [place] Comment on above: Specimen hemolysis h as exceeded the interference as defined by Shikha. Value may be falsely increased. Suggest recollection if clinically indicated. Protein [Mass/Vol] 6.3 g/dL 6.3 - 8 g/dL [place] Sodium [Moles/Vol] 140 mmol/L [place] Urea nitrogen [Mass/Vol] 17 mg/dL 6 - 20 mg/dL [place] MRI LUMBAR SPINE WO CONTRAST on [...] Nando Dixon MD 09/10/20 Final result Normal [facility] Rory, Chpo Incoming Radiant Results From [employer] - 09/10/2020 4:27 PM EST STUDY IS [...] superior facet joint spurring and/or ligamentous thickening. [place] STUDY IS REVIEWED WITH THE REFERRING [...] superior facet joint spurring and/or ligamentous thickening. [place] Partial Thromboplastin Timeo n 09-10-2020 aPTT Coag (Bld) [Time] 30.5 s Normal 24.4-36.8 [facility] Comment on above: Result Comment: Effe ctive 07/25/2020: Heparin Therapeutic Range: 64.0 ? 98.0 seconds. Performed By: #### P TT #### [facility] [address] [place] [address] Prothrombin Timeon 0 INR Coag (PPP) [Relative time] 1.1 {INR} Normal [facility] Comment on above: Performed By: #### P T #### [facility] [address] [place] [address] PT Coag (PPP) [Time] 13.9 s Normal 12.3-14.9 [facility] Comment on above: Performed By: #### P T #### [facility] [address] [place] [address] Protime-INRon 09-10-2020 INR Coag (PPP) [Relative time] 1.1 {INR} [place] PT Coag (PPP) [Time] 13.9 s [place] XR CHEST PORTABLEon 09-10-20 XR CHEST PORTABLE EXAMINATION: CHEST PORTABLE VIEW CLINICAL HISTORY: Back pain COMPARISONS: None FINDINGS: Single views of the chest is submitted. The cardiac silhouette is enlarged. Pulmonary vascular unremarkable. Right sided trachea. No focal infiltrates. No Pneumothoraces. IMPRESSION: NO ACUTE ACTIVE CARDIOPULMONARY PROCESS Interpreted by: Phillip Corral MD Signed by: Phillip Corral MD 09/11/20 Final result Normal [facility] XR LUMBAR SPINE (MIN 4 VIEWS [...] Phillip Corral MD 09/11/20 Final result Normal [facility] Vital Signs Date Time Vital Sign Value Performing Clinician Faci christophery 09-11-2020 17:30-0500 BP Diastolic 94 mm[Hg] [place], [place] 09-11-2020 17:30-0500 BP Systolic 182 mm[Hg] [place] 09-11-2020 17:30-0500 Pulse (Heart Rate) 60 /min [place], [place] 09-11-2020 17:30-0500 Pulse Oximetry 94 % [place], [place] 09-11-2020 17:30-0500 Respiratory Rate 19 /min [facility], [place] 09-11-2020 16:50-0500 Body Temperature 98.01 [degF] [place] 09-10-2020 10:41-0500 BMI (Body Mass Index) 27.46 kg/m2 [place], [place] 09-10-2020 10:41-0500 Body weight 72.58 kg [place], [place] 09-10-2020 10:41-0500 Height 162.6 cm Magdaleno Gabriel [facility] , [place] Encounters Encounter Date Encounter Type Care Provider Facility Start: 04-25-2024 End: 04-25-2024 ambulatory MELA AICHHOLZ Not Available Start: 02-18-2024 End: 02-18-2024 ambulatory MELA AICHHOLZ Not Available Start: 01-07-2024 End: 01-07-2024 ambulatory MELA AICHHOLZ Not Available Start: 11-30-2023 End: 11-30-2023 ambulatory TRACEE BELTRAN Not Available Start: 11-10-2023 End: 11-10-2023 ambulatory ZAIDA FLORES Not Available Start: 10-27-2023 Refill 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 Phone: [facility] Comment on above: Mixed hyperlipidemia (CMS/HCC) (Primary Dx) Start: 10-05-2023 End: 10-05-2023 ambulatory MELA AICHHOLZ Not Available Start: 08-25-2023 End: 08-25-2023 ambulatory MELA AICHHOLZ Not Available Start: 09-05-2022 End: 09-06-[address] EVAN GILLESPIE Facility:[facility] Start: 05-30-2022 End: 05-31-2022 ambulatory Orlando Cole Facility:[facility] Start: 05-30-2022 End: 05-30-2022 Patient encounter procedure Orlando Cole [facility] Start: 11-12-2021 Encounter for genera l adult medical examination without abnormal findings DR EVAN GILLESPIE [facility] Start: 11-11-2021 End: 11-12-[address] EVAN GILLESPIE Facility:[facility] Start: 11-11-2021 End: 11-12-2021 Encounter for general adult medical examination without abnormal findings DR EVAN GILLESPIE Facility:[facility] Start: 09-20-2021 End: 09-21-2021 ambulatory Cameron Singleton Facility:[facility] Start: 09-10-2020 End: 09-11-2020 Evaluation and management of inpatient SR EVAN GILLESPIE [facility] Start: 09-10-2020 End: 09-11-2020 Evaluation and management of inpatient Magdaleno H. Gabriel Work Phone: [facility] Comment on above: Right leg weakness ( Primary Dx); Protruded lumbar disc; Postoperative pain Procedures Date Procedure Procedure Detail Performing Clinician Start: 09-30-2023 Mammography Mela veloz TECHNOLOGY LAB TEACHER Work Phone: Start: 09-11-2020 Fluoroscopy during operation Magdaleno Riso Work Phone: Start: 09-11-2020 Gluc bld gluc [...] malign ant neoplasm of breast Mammogram [facility] Start: 01-07-2024 End: 01-07-2024 Patient encounter procedure 01/07/2024 9:40 AM EDT Office Visit [facility] [address] [address] Mela Daily, TECHNOLOGY LAB TEACHER [address] [place] [address] [facility] Start: 11-20-2023 Screening for malign ant neoplasm of cervix Cervical Cancer Screening [facility] Comment on above: Postponed from 06/01 (Other Medical Reasons) Start: 11-20-2023 Screening for malign ant neoplasm of colon Colorectal Cancer Screening [facility] Comment on above: Postponed from 06/01 (Other Medical Reasons) Start: 11-10-2023 End: 11-10-2023 Patient encounter procedure 11/10/2023 8:30 AM EST Office Visit [facility] [address] [place] [address] Zaida Flores MD [address] [place] [address] [facility] Start: 08-29-2022 Hemoglobin A1c measurement Diabetes: Hemoglobin A1C [facility] Start: 09-24-2020 End: 09-24-2020 Office Visit 09/24/2020 Office Visit Neurosurgery Magdaleno Rios MD [address], [address] [place] [address] [employer] Start: 05-22-2020 Influenza vaccination Flu vaccine (# 1) [place] Start: 2011 Screening for malign ant neoplasm of breast Breast cancer screen [place] Start: 2011 Screening for malign ant neoplasm of colon Colon cancer screen colonoscopy [place] Start: 2011 Shingles Vaccine (1 of 2) Shingles Vaccine (1 of 2) [place] Start: 2001 Diabetes screen Diabetes screen [place], [place] Start: 2001 Lipid panel Lipid screen [place], [place] Start: 1991 Screening for malign ant neoplasm of cervix HPV/Cotest [facility] Start: 1982 Screening for malign ant neoplasm of cervix [facility] Start: 1980 DTaP/Tdap/Td vaccine (1 - Tdap) DTaP/Tdap/Td vaccine (1 - Tdap) [place] Start: 1980 Urine screening for protein Diabetes: Urine Protein Screening [facility] Start: 1976 HIV screening HIV screen [facility] [place] Start: 1971 Glaucoma screening Diabetes: R etinopathy Screening [facility] Start: 1961 Hepatitis C screening Hepatitis C sc reen [place], [place] Start: 1961 Screening for malign ant neoplasm of colon [facility] EKG 12 Lead - Chest Pain EKG 12 Lead - Chest Pain ECG STAT 09/10/2020 4:45 PM EST [place] Oxygen therapy [[facility] Data Set] Initiate Oxygen Therapy Protocol Respiratory Care Routine Daily until discontinued starting 09/10/2020 [place] Comment on above: Daily until disconti nued starting 09/10/2020 Surgical Pathology Surgical Path ology Lab Routine Release Upon Ordering for 1 Occurrences starting 09/11/2020 [place] Comment on above: Release Upon Orderin g for 1 Occurrences starting 09/11/2020 Payers Date Payer Category Payer Unknown BCBS BCBS [id number] 2015-Present [phone] [address] [place] [address] [id number] 1960 Unknown [id number] 1960 Unknown [id number] 1960 Unknown [id number] [id number] 1961 Unknown [id number] 1961 Unknown [id number] [id number] 1961 Unknown [id number] [id number] 1961 Unknown [id number] [id number] 1961 Unknown [id number] [id number] 1961 Unknown [id number] [id number] 1961 Unknown [id number] [id number] 1961 Unknown [id number] [id number] 1960 Unknown [id number] 1959 Unknown [id number] Social History Date Type Detail Facility Start: 09-11-2020 Tobacco smoking stat [facility] Former smoker [place] History of tobacco use Cigarette Smoker [place], [place] Start: 09-11-2020 End: 08-25-2023 Cigarettes smoked current (pack per day) - Reported [facility] Start: 09-11-2020 Tobacco use and exposure Never used [place] Start: 09-11-2020 Alcohol intake Lifetime non-d shobha (finding) [place] Start: 09-10-2020 History SDOH Alcohol Frequency 1 [place] Start: 1960 Sex Assigned At Not on file [place], [place] Exposure to SARS-CoV -2 (event) Not sure [place] Tobacco smoking status No Smokin g Status Entered [facility] Start: 08-25-2023 End: 10-05-2023 Sex Assigned At Female [facility] Start: 08-25-2023 Tobacco smoking stat us CAIS Smokes tobacco daily [facility] Start: 10-05-2023 Alcohol intake Current drinke r of alcohol (finding) [facility] Within the last year , have you been afraid of your partner or ex-partner? No [facility] Do you belong to any clubs or organizations such as restorationism groups, unions, fraternal or athletic groups, or [...] - these days [OSQ] Not at all [facility] (I/We) worried wheth er (my/our) food would run out before (I/we) got money to buy more. Never true [facility] Start: 08-25-2023 Tobacco Comment 10-19 cigarettes/day [facility] Start: 08-25-2023 Alcohol Comment 1-2 drinks mon thly or less, caffeine 1-2 cups per day [facility] Evaluation + Plan note Note Date & Type Note Facility Evaluation + Plan note No data available for this section [facility] Evaluation note Note Date & Type Note Facility Evaluation note Diagnosis Mixed hyperlipidemia (CMS/HCC)- Primary Mixed hyperlipidemia documented in this encounter [facility] Discharge instructions Note Date & Type Note Facility Hospital Discharge instructions No data available for this section [facility] Progress note Note Date & Type Note Facility Progress note No data available for this section [facility] Discharge Instructions * Instructions* Magdaleno Rios [...] your physician 11) Call your doctor at [phone] for an appointment (or follow up as [...] call OFFICE. The 24- hour phone is [phone] 13) If you are unable to contact [...] Weakness of right leg Magdaleno Rios MD [address] [facility] [address] [employer], [address] [place] [address] [facility] Ordered Prescriptions (unrec ognized section and content) [...] section and content) DATE CREATED AUTHOR 09/13/2020 [facility] DATE CREATED AUTHOR AUTHOR'S ORGANIZ ATION 10/21/2021 [facility] dical Specialist DATE CREATED AUTHOR AUTHOR'S ORGANIZ ATION 06/02/2022 Kai Kenny [facility] DATE CREATED AUTHOR AUTHOR'S ORGANIZ ATION 09/12/2022 [facility] DATE CREATED AUTHOR AUTHOR'S ORGANIZ ATION 04/26/2024 [facility] dical Specialists [facility] Care Team (unrecognized sect ion and content) Submarine Element Coordinator Relationship Specialty Start Date End Date Jose Powers MD PCP - General Family Medicine 08/18/23 Mela Daily NP [address] [place] [address] Nurse Practitioner Family Medicine 08/18/23 FOR RECORDS [...] BE BASED ON THE PRIMARY CLINICAL RECORDS. [employer] provides no warranty or guarantee of the accuracy or completeness of information in this document.
[2024-05-19 09:30] LABS: Estimated Average Glucose 140 mg/dL; Glycohemoglobin A1C 6.5 % (4.5-6.2)
== END 2024-05-19 09:04 | disposition home or self-care (01) ==
LOC: LAB 09:04
PROVIDERS: PCP Nurse Practitioner; Visit Provider Nurse Practitioner
DX: E11.9 Type 2 diabetes mellitus without complications (principal)
CPT/HCPCS: 36415; 83036

== ENCOUNTER 2024-10-07 09:23 | Outpatient (OUT) | payer BC, SELFPAY ==
--- NOTE | 2024-10-07 | MM_ITS ---
Patient Name: JORDY PHILIP MR#: [id number] : 1960 Exam Date: 10/07/2024 Ordering Doctor: MAMADOU Daily CNP RADIOLOGY REPORT PROCEDURE: MM TOMOSYNTHESIS SCREENING BI COMPARISON: MM TOMOSYNTHESIS SCREENING BI, 09/30/2023. MG MAMM SCREEN 3D ANGELICA CAD, 09/05/2022. MAMMO ANGELICA SCREEN, 07/08/2013. MAMMO ANGELICA SCREEN, 01/08/2009. INDICATIONS: Angelica Screening Mammogram Calculator Name NCI Breast Cancer Risk Assessment Tool 5 Year Breast Cancer Risk Not Reported. Lifetime Breast Cancer Risk Not Reported. Personal Breast Cancer No Personal Ovarian Cancer No Treatments None Family Cancers None LOCATION: [facility] BREAST COMPOSITION: There are scattered areas of fibroglandular density. FINDINGS: DIAGNOSTIC CATEGORY 1--NEGATIVE. RIGHT BREAST: No significant suspicious finding. No significant change has occurred. LEFT BREAST: No significant suspicious finding. No significant change has occurred. RECOMMENDATIONS: ROUTINE MAMMOGRAM AND CLINICAL EVALUATION IN 12 MONTHS. PLEASE NOTE: A NORMAL MAMMOGRAM DOES NOT EXCLUDE THE POSSIBILITY OF BREAST CANCER. A CLINICALLY SUSPICIOUS PALPABLE LUMP SHOULD BE BIOPSIED. Dictated by: Josh Rosales M.D. on 10/07/2024 at 11:36 Approved by: Josh Rosales M.D. on 10/07/2024 at 11:45
--- OUTSIDE RECORDS SUMMARY | 2024-10-07 09:40 | XMS_ITS | CCD ---
Author Organization [facility] Care Team Providers Care Senior Clinical Research Scientist Name Role Phone Jose Miguel, Sr Evan Lu Primary Care Provider JOSE MIGUEL, SR EVAN Lu Primary Care Unavailable MAGDALENO RIOS Admitting Unavailable MAGDALENO RIOS Attending Unavailable Evan Gillespie Primary Care Physician Orlando Cole Admitting Unavailable Douglas, Orlando Boothe Attending Unavailable Orlando Cole Referring Unavailable Areli, Cameron Azul Admitting Unavailable Areli, Cameron Azul Attending Unavailable Areli, Cameron Azul Referring Unavailable JOSE MIGUEL, DR MARADIAGA Admitting Unavailable JOSE MIGUEL, DR MARADIAGA Primary Care Unavailable HOUSE, DR MARADIAGA Consulting Unavailable HOUSE, DR MARADIAGA Attending Unavailable HOUSE, DR MARADIAGA Primary Care Unavailable HOUSE, DR MARADIAGA Consulting Unavailable JOSE MIGUEL, DR MARADIAGA Attending Unavailable JOSE MIGUEL, DR MARADIAGA Admitting Unavailable JOSELITO, DR JOSH Saenz Consulting Unavailable Jose Powers MD Primary Care Provider Aichholz BRAZING FURNACE FEEDER, Mela Unavailable AICHHOLZ, MELA Attending Unavailable ZAIDA FLORES Attending Unavailable AICHHOLZ, MELA Attending Unavailable TRACEE BELTRAN Attending Unavailable AICHHOLZ, MELA Referring Unavailable AICHHOLZ, MELA Attending Unavailable AICHHOLZ, MELA Attending Unavailable AICHHOLZ, MELA Attending Unavailable AICHHOLZ, MELA Attending Unavailable Jose Powers MD Primary Care Provider [phone] Aichholz BRAZING FURNACE FEEDER, Mela Unavailable Aichholz BRAZING FURNACE FEEDER, Mela Unavailable Allergies Allergy Classification Reported Allergen(s) Allergy Type Date of Onset Reaction(s) Facility (10 sources) empagliflozin Drug Allergy 04-25-2024 Rash [facility] Work Phone: Medications Current Medications Medication Drug Class(es) Dates Sig (Normalized) Sig (Original) acetaminophen 325 mg / HYDROcodone bitartrate 5 mg oral tablet (4 sources) Opioid Agonist Start: 09-10-2020 End: 09-11-2020 take 1 tablet by mouth every six hours as needed for pain 1 tablet, Oral, EVERY 6 HOURS PRN, Pain Moderate (4-6), Starting 09/10/20 at 204 Maximum dose of acetaminophen is 4000 mg [...] pain 28 tablet 0 09/11/2020 09/25/2020 Active aspirin 81 mg delayed release oral tablet (10 sources) Platelet Aggregation Inhibitor, Nonsteroidal Anti-inflammator y Drug take 1 tablet by mouth once daily aspirin 81 MG EC tablet Take 81 mg by mouth Daily Active atorvastatin 20 mg oral tablet (15 sources) HMG-CoA Reductase Inhibitor Start: 04-27-2024 End: 11-23-2024 take 1 tablet by mouth once daily atorvastatin (Lipitor) 20 MG tablet Indications: Mixed hyperlipidemia (CMS/HCC) Take 1 tablet (20 mg) by mouth Daily 90 tablet 1 08/25/2024 11/23/2024 Active Start: 09-28-2023 End: 01-25-2024 take 1 tablet [...] DAILY PRN, Muscle spasms, Starting Thu09/10/20 at 2044 dapagliflozin 5 mg oral tablet (9 sources) Sodium-Glucose Cotransporter 2 Inhibitor Start: 05-26-2024 End: 11-23-2024 take 1 tablet by mouth once daily dapagliflozin (Farxiga) 5 MG Indications: Type 2 diabetes mellitus without complication, without long-term current use of insulin ([facility]) Take 1 tablet (5 mg) by mouth Daily 90 tablet 1 08/25/2024 11/23/2024 Active 1 ml dexamethasone phosphate 4 mg/ml injection [...] First dose on Thu09/10/20 at 2115 lisinopril 30 mg oral tablet (14 sources) Angiotensin Converting Enzyme Inhibitor Start: 04-25-2024 End: 11-23-2024 take 1 tablet by mouth once daily lisinopril 30 MG tablet Indications: Essential hypertension ([facility]) Take 1 tablet (30 mg) by mouth Daily 90 tablet 1 08/25/2024 11/23/2024 Active Start: 10-26-2023 End: 01-24-2024 take 1 tablet by mouth in the morning lisinopril 10 MG tablet Indications: Essential hypertension (CMS/HCC) , Microalbuminuria Take 1 tablet (10 mg) by mouth in the morning. 90 tablet 1 10/26/2023 01/24/2024 Active metFORMIN hydrochloride 500 mg oral tablet (17 sources) Biguanide Start: 02-18-2024 End: 11-23-2024 take 1 tablet by mouth in the morning metFORMIN (Glucophage) 500 MG tablet Indications: Type 2 diabetes mellitus without complication, without long-term current use of insulin (CMS/HCC) Take 1 tablet (500 mg) by mouth in the morning and 1 tablet (500 mg) in the evening. Take with meals. 180 tablet 1 05/26/2024 08/24/2024 Active Start: 08-25-2023 End: 11-23-2023 take 1 tablet [...] Start: 09-10-2020 morphine (PF) injection 2 mg ondansetron 4 mg disintegrating oral tablet (10 sources) Serotonin-3 Receptor Antagonist Start: 01-04-2024 take 1 tablet by mouth every eight hours as needed for nausea and vomiting ondansetron ODT (Zofran-ODT) 4 MG disintegrating tablet Take 4 mg by mouth every 8 (eight) hours if needed for nausea or vomiting 01/04/2024 Active polyethylene glycol 3350 93534 mg powder for oral solution (1 source) Osmotic Laxative Start: 09-10-2020 polyethylene glycol (GLYCOLAX) packet 17 g Promethazine (1 source) Phenothiazine Start: 09-10-2020 promethazine (PHENERGAN) tablet 12.5 mg 24 hr propranolol hydrochloride 60 mg extended release oral capsule (17 sources) beta-Adrenergic Todd Start: 05-10-2024 End: 11-23-2024 take 1 capsule by mouth once daily propranolol LA (Inderal LA) 60 MG 24 hr capsule Indications: Essential hypertension (CMS/HCC) Take 1 capsule (60 mg) by mouth Daily 90 capsule 1 08/25/2024 11/23/2024 Active Start: 08-25-2023 End: 05-10-2024 take 1 capsule by mouth every twenty-four hours in the morning propranolol LA (Inderal LA) 60 MG 24 hr capsule Indications: Essential hypertension (CMS/HCC) Take 1 capsule (60 mg) by mouth in the morning. 90 capsule 1 08/25/2023 05/10/2024 Discontinued Start: 06-24-2020 End: 09-11-2020 take 60 mg by mouth once daily 60 mg, Oral, DAILY, Fir st dose on Thu09/11/20 at 0900 Do not crush or break. End: 09-10-2020 take 1 tablet by mouth three times daily propranolol (INDERAL) 10 MG tablet Take 10 mg by mouth 3 times daily 0 09/10/2020 Discontinued (Therapy completed) sennosides, residential 8.6 mg oral tablet (1 source) Start: [...] 09/11/2020 Discontinued (Stop Taking at Discharge) Problems Active Problems Problem Classification Problem Date Documented Date Episodic/Chronic Diabetes mellitus without complication (15 sources) Type 2 diabetes mellitus without complication; Translations: [Type 2 diabetes mellitus without complications] Onset: 08-25-2023 08-25-2023 Chronic Disorders of lipid metabolism (15 sources) Mixed hyperlipidemia; Translations: [Mixed hyperlipidemia] Onset: 09-28-2023 10-27-2023 Chronic Essential hypertension (17 sources) Essential hypertension; Translations: [Essential (primary) hypertension] Onset: 08-25-2023 08-25-2023 Chronic Joint disorders and dislocations; trauma-related (11 sources) Articular cartilage disorder of shoulder region; Translations: [Other articular cartilage disorders, left shoulder] Onset: 08-25-2023 08-25-2023 Chronic Osteoarthritis (11 sources) Osteoarthritis of left acromioclavicular joint; Translations: [Primary osteoarthritis, left shoulder] Onset: 08-25-2023 08-25-2023 Chronic Other nervous system disorders (1 source) Postoperative pain ; Translations: [Postoperative pain] Episodic Other nutritional; endocrine; and metabolic disorders (13 sources) Body mass index 30+ - obesity; Translations: [Obesity, unspecified] Onset: 08-25-2023 08-25-2023 Chronic Other nutritional; endocrine; and metabolic disorders (9 sources) Body mass index 25-29 - overweight; Translations: [Overweight] Onset: 05-26-2024 05-26-2024 Episodic Other screening for suspected conditions (not mental disorders or infectious disease) (20 sources) Encounter for screening mammogram for malignant neoplasm of breast; Translations: [Patient encounter status] Onset: 09-05-2022 Episodic Paralysis (4 sources) Weakness of right leg; Translations: [Right leg weakness] Onset: 09-10-2020 09-10-2020 Spondylosis; intervertebral disc disorders; other back problems (20 sources) Prolapsed lumbar intervertebral disc; Translations: [Other intervertebral disc displacement, lumbar region] Onset: 08-25-2023 08-25-2023 Chronic Substance-related disorders (11 sources) Tobacco dependence syndrome; Translations: [Nicotine dependence, unspecified, uncomplicated] Onset: 05-26-2024 05-26-2024 Chronic Past or Other Problems Problem Classification Problem Date Documented Da te Episodic/Chronic Genitourinary symptoms and ill-defined conditions (11 sources) Microalbuminuria; Translations: [Proteinuria, unspecified] Onset: 09-28-2023 09-28-2023 Episodic Other connective tissue disease (11 sources) Partial thickness rotator cuff tear; Translations: [Incomplete rotator cuff tear or rupture of unspecified shoulder, not specified as traumatic] Onset: 08-25-2023 08-25-2023 Episodic Results Test Name Value Interpretation Reference Range Facility HbA1c (Bld) [Mass fraction]o n 08-25-2024 Interpretation and review of laboratory results Abnormal [facility] - Hematology and Cell countson 08-25-2024 HbA1c (Bld) [Mass fraction] 6.10 % [facility] MLR HEMOGLOBIN A1Con 024 Glucose [Mass/Vol] 140 mg/dL [facility] HbA1c (Bld) [Mass fraction] 6.5 % High 4.5 - 6.2 % [facility] Comment on above: ADA RECOMMENDED LIMI T 4.0 - 6.0 ADA THERAPEUTIC TARGET < 7.0 ACTION SUGGESTED > 7.0 Interpretation and review of laboratory results Abnormal [facility] MG MAMM SCREEN 3D ANGELICA CADon 09-05-2022 MG MAMM SCREEN 3D ANGELICA CAD Patient: JORDY DUNNE Exam Date: 09/05/2022 : 1960 Gender:F Ordering : DR EVAN GILLESPIE D.O. Admission #: [id number] Family : Order #: [id number] CLICK HERE TO VIEW EXAM RADIOLOGY REPORT PROCEDURE: MAMMOGRAM SCREENING 3D BILATERAL CAD COMPARISON: MAMMO ANGELICA SCREEN, 07/08/2013. MAMMO ANGELICA SCREEN, 01/08/2009. INDICATIONS: Screening mammography Calculator Name NCI Breast Cancer Risk Assessment Tool 5 Year Breast Cancer Risk Not Reported. Lifetime Breast Cancer Risk Not Reported. Personal Breast Cancer No Personal Ovarian Cancer No Treatments None Family Cancers None LOCATION: [facility] BREAST COMPOSITION: Scattered areas fibroglandular [...] M.D. on 09/08/2022 at 13:34 Normal [facility] Coding Summary.on 06-02-2022 Coding Summary. [id number] G h0bWw+PGhlYWQ+FH0VEWU xJ87rkYRaoK4ZD1bMLW0K WYSMRFUYNK1NYH7pfMY8G QgxN1YbmsVc IjyruBRkRL29JEm9KJI3n HyxOZtqaJ3vvJHfV2s4Ov BoFF25pA27BBmqOEUmJbJ 3LjZpbjsgbWFy H1nxUmDrtXGdBhe+PHRhY mxlIHdpZHRoPScxMDAlJy GxwLeaMT2mCb7yWPHyBDS vbGxhcHNlOiBj f3slHVLrOWyvOW9paEtvA 3YutCM7VCHhm6g2Lq92pE I+FUOtJJZ6kUtiCFcgf21 8TxMts0ziBZK9 uFPaYAmhOHT0W84os4C5R ZKmGLCyJHF1qEK9wW1rmM pgxdheJ6LbvBFqZzI2YXS 9tEBuqU0jaVay mmtrzR9jWut+Y44WUA7SV BADNT4RXqp8N5QtIdkfyR I+AX48WGQzMJ25aGMdbSN vr9msmCm5OsSv CIAaRWI6kUoiFGihv0LhS HKnE49hyUZzc5E3MVTroR ytoQAgZtTawNR0mC8aBRn nmrein2lxdqre Fnywg4qtvl22yG24N18zA JfqPVYpJZS6HCWdWNNpsB tvuq6gwJ8aFx9+VJdjx9j sf1cbgIx5FkFl BMRvytAxiAdpFOI3g6RfP g51G0SzjAjvp1PcXtz3uq 95pNEsi7E2pWI9UHheWFQ mtY4fKBbwLnU4 ABOgDsVhvY41xNOcPXqaI g9yoFypeUywRP2sPQCanz cmWJAocH3yGHEquNOneIv aMQ8vUINyrvdo g387OlRmRNH5IGPqfCKdH 4RqbO6vOgMuIORoHVWmK4 XwmYMcXIylT536KMdvTwW 3TYUvmlLbL0Fx FXWqaQdxIcQ6d3C2Ea8Ub 1ZqqcruFOC2RMcyIDG2Hj DdEdRnWsF1U5EfMde0SCI jqDllFQ8sV3Rw NPXmtosmbwhezLX5AGJfP ZUsnR98qRFiNIhyNj2qt7 I1l960VVDcTPUtuK94Dt5 udDogMTBwdCBU nE5zumgap5hxqwkgOcQhW ESaHKe4RPh2CJVwtNvtZm CuLTF0NqF4PEN9uEYhnM1 hvOkfgyyauU3p Oyc+W54izL8nINF3REC0r amhHUKbksWeGZ63AW27D7 RyPjwvdGFibGU+PGRpdiB ndNhqVG8nLmMm v6xpm1KjQMkqP9VsIMVyZ HhuEtn4YRTvAAV6ePW6rJ 6dJXTuCIjzt5J6vCZ1S6L tdvSpvx5as9pp DNKtUOghA22imDIpf7Z8O SYpdNE7CGMujVorWhOozL 93Oyc+GHZdfOeav1AyScs cg8ydz2vdeSx7 WySdEUTwpePygSsiZHL0g 4TsZr44V21gGVapROAgSO LkDUQfFJBwjUlcrf0gbH2 wIi8+PGNvbCB3 rNQ9sQ5qCLKgRnT2ZAvcM 346QbQjzDJqXaeot2pdb7 kzpRg3QyFzZPIjtgQdcYe nKOX3r4DfAy69 T84oBQcnCXWdDERoHWIgC GWyeRvrwh4dsX5eHe3+PC 2ij1twek52aN12bAX+PHR zPUY7mDkkOQrj XWIusA5tTYxyIjL0GZFsG fCmnN76jGSvSZbbRa3dsU gxiYowGG7vXVWsdwgvs75 7TuKak0juTUAa gNBmBJkmICB6P28ys8W8D INcOSPjIYH5fAA8pY8ygO lnbjogbGVmdDsgdmVydGl qSRlzAArsJ625 IHRvcDsnPlBhdGllbnQgT qCwKTl7K6IzXvk4AOGpmK raWE2nrDDsHAraPm1agJd zpSkyZR3tYNEj tdlej823CbWfh8pyDWExd DFaRQukGMN0N17mv0A8PQ SsOKRiXQC5mRM0gG1fhKz nbjogbGVmdDsg djEvaAsrTZlgHOvtS975F HRvcDsnPkJpcnRoIERhdG M2QE67NZ63sPAsc3C1uXE 6T2LjRBHpndib tchrgLD3DGJsWCOerJ21G c2hwLgdRw9pBMLtGZH9VL CfyBUbA2NktW1aPcXvTIT jCRRdD0BisHSf ZYqcU879NWrpYyY4RIRpc gVvV1GsTUNdkLptCcV1v6 J1Jd0CJ2B3OY76DD95pBW ce2B1uNX6W0Tq MYHunuqvmdgxdNT3PBAvN VZlcJ69Sy8ocAxdGn5lRE UoYCW9CYIkjVMhK4HkwP3 yOiAjMDAwMDAw E4RvaEOdKLjfH381PGlvJ aE2ERWjyyWsK1ZrQGMceF mjKwX5n2W5Sf2YAAu4YT8 6RN77zQCnj8Y7 dKC7W9VxTHZjuvhislzba AN7WMOxFFCwsN89Tp4vjH rrGy4gEFOoUAM1FWYatQU vN4ZgaT0iXvOt WRWhMGObT8RomNTwIQhrW 686CRgkYwJ1ILKiktYqV2 EyJXPnyVtfVyB1m9R1Im2 YNXJjAM58VFY5 kXV5PJ36KF42W8ZcHvrna GFibGU+PHRhYmxlIHdpZH RoPScxMDAlJyBzdHlsZT0 eCm8nLJFhPIFv xAfqsYZiSqOhe1hzDBPbD HxcFJ2pcSpyA0GsfMD5FA Uhq0p9Ts08D37eY3OouGK +WEKwfGG1tTP2 eB8mWuJwIeG6AUdtC009I aZvvDHmYmufm4mku0bzcQ s3XkR3GIFsvaJxuLnmBYH 5b8FhBk56E03u IHdpZHRoPSIxNSUiIHZhb Nvpjw4faM8zFd9+PGNvbC L5yXJ6jD0dBxPzSiH9XYr qI511WtYumFVh Hwiyv9ysg8tbeQx8RnKbQ CRyyhQevKrpGYQ3p9KlKa 01H1FvlPala4AnSgt1ea7 2jLVls1O6mJH2 K0ZeWSMcbjdlcNKehLxlF N9eRLLroayjUCWtsP0eQJ WtK1e8YkNtSsZ6QFnhA4R xxgA3WTFdgACh LRnxXWF8P97ax5P4OETwU MBgFHM5qFB1fC8bcTdqkb ogbGVmdDsgdmVydGljYWw dXFfxD164EXMs xKqpNNHwdY4wJRVrmPEyb FglCL6jZMTmtetcCh6DP3 JFLCBMVUNSRVRJQSBNPC9 9QW61cHZqp9I2 qOF6F7XgNGPfgfsajoojw UW0WQRqDIPatS40kWIgUC pcWh8px3F7w588ZWGmGPH haH68Jn1trQfe VHQvkLNIiE9hoxexa6afb qzkIsNlLRIhUEo4LFs4BU LteImtJxCtSAC7LyR8BFF 2kKOzpL0rdZye oihdwC5cZgw+MDkvMTEvM Rr3KOhxhKL+JCQgBVG2bC jxGZwbEZGxpH8zXMMxV0v 3AcFdHhY4MDud C2QuAFRqwxxjOd05qT8bD sTmEaI9RBnqH9CefrT1UP RlvCVdJVvbKTQ9Y74sj3R 4UCFxBZRbHOY8 bIX3tW6lnKpuhouayQVpr DsgdmVydGljYWwtYWxpZ2 46IHRvcDsnPjYxIFllYXJ vTY46BA92jRIk i3H3nKF5R9YqRGIerclyc ckwxFA8MZHrRXIinA25aE GlIEghCb6vf0H1x092NXF oHAIciJ01Rc8a yPgwRYTfdYWIcB8xnhdxx 1jnyqafEeJpUEIfBQg2DC g9SLNnvAwzWpRhSLW3PgU 2ANM6vTFxmS6a oGkixcxxaQ5iDaq+RmVtY WrzXU41YP38vPHcd4K9mL O7C8WyLKNjsicpycauuBN 2BBGaPJWcnS00 iIXmQRsqDw7cd4M5j719U JEqVDVbiE54Ub3uqMrxTE MteBHHpG7nwqxuy7lxwhj gIzAwMDAwMDt0 VUx2ZDLxcXlwDhQnEYS5F hV7HAV8nBOscK4dgBmosk tgmB8iJow+P9H9cTU5pAJ udDwvdGQ+PC90 jd45U0XjGwosRlk6ULUuN VN9jPR8bY5gYALbKQhfz5 Q6eTH4O4JfymOxrs9al2v vVYMuYZgsG90l hFJoz1G9SBQpiIP4OLLkf IlxByYuaB06Tsf+PGNvbG xhc2HzFrohx2low5lvzTf 9IjMwJSIgdmFs gBddYAV1u0IyWx52T09jL HdpZHRoPSIzMCUiIHZhbG bjpk3joJ5bWc7+PGNvbCB 4mYT5wB6xGiBq HjB4KWumJ928BeEzgQCvL mirp3uxn6svcVc6JnTuHK JkxfErnSpoWLA0q4RpQq5 8M1XxvPczs9Le Qvp6py34xTJmv7Y9dQX6N 3BhZGRpbmctbGVmdDogMC 3eQWHwmkukKFOclD1uSVY yR5v3HnGsIzG2 ZVexO5KtusM1TMEyrLCeX PUnrMWWmH7mjryjn6tmji vpVxSdUDWzGGt9AVj8AXF saWduOiBsZWZ0 LoP8MVP5uCRnjC8qdPsxc swvlR7bRgp+LTp5s6tfdL LpZO7uoCL1VK19JQ75hTD zw5J9tSX9B5Up MJSdrsjjqrkfuPX5TEDfX BSgdR75Ij1kpXadFl1rCV PcGMN8WVDfnKEyK6BdpA5 yOiAjMDAwMDAw Y7DovLQiXPdmO900WQisL aZ4APYyfaRjL4ErLQJdrN tpDeQ1x4S0Ul0KVD59GT9 1ZM99iSLdo7K5 rUY0D3BqNXOgosopxwseo CJ5CMTyMCBmuF54Ra0brR czXq1rTPOmFVH2ZMKpbCB uA8VpvW4nDyRp EKClLUQjL2YkeFHzEXkmJ 508HObkRuL4GGXjbfVqK5 OoQQEkvXxgIvU2r5V6Zi3 QKw43KR06MD20 sUQax4N5zRW1N0YwXZHhu qazcerlyAG0SQWkOPBlgD 08Cb4krWkcTq5vVZJdQSZ 3NAZbrVFtA2Ww aW4oGvIeOMOiCAKbI5Zeo IWzDFgjZ023RSwzXkA8BE TbolVkF5OpSVBgfVsoStT 1u9M9Ug2CBTpt waj3Q5YiDlzwtNQ+PC90Y CLnVE99rIRiePRcj9fjqO f3LvCwBSHnWME5nItdAPx rs6EkVSSmY64j bGFw (more content not included)... Normal [facility] Auto Diffon 05-30-2022 Basophils/100 WBC (Bld) 0.6 % Normal 0.0-2.0 [facility] Comment on above: Order Comment: Order Added by Discern Expert. Performed By: #### 7 [id number], [id number], [id number], [id number] #### [facility] [address] [place] [address] 30541 Basophils/Leukocytes Auto (Bld) [Pure # fraction] 0.0 E9/L Normal 0.0-0.2 [facility] Comment on above: Order Comment: Order Added by Discern Expert. Performed By: #### 7 [id number], [id number], [id number], [id number], [id number] #### [facility] [address] [place] [address] 13538 Eosinophils/100 WBC (Bld) 1.3 % Normal 0.0-8.0 [facility] Comment on above: Order Comment: Order Added by Discern Expert. Performed By: #### 7 [id number], [id number], 3347360, [id number], [id number] #### [facility] [address] [place] [address] 98491 Eosinophils/Leukocyte s Auto (Bld) [Pure # fraction] 0.1 E9/L Normal 0.0-0.5 [facility] Comment on above: Order Comment: Order Added by Discern Expert. Performed By: #### 7 [id number], [id number], 6707521, 7891240, [id number] #### [facility] [address] [place] [address] 13286 Lymphocytes/100 WBC (Bld) 32.4 % Normal 14.0-50.0 [facility] Comment on above: Order Comment: Order Added by Yosvany Expert. Performed By: #### 7 [id number], [id number], 4059997, 2897811, [id number] #### [facility] [address] [place] [address] 08190 Lymphocytes/Leukocyte s Auto (Bld) [Pure # fraction] 2.1 E9/L Normal 1.0-4.0 [facility] Comment on above: Order Comment: Order Added by Yosvany Expert. Performed By: #### 7 [id number], [id number], 3046751, [id number], [id number] #### [facility] [address] [place] [address] 21170 Monocytes/100 WBC (Bld) 7.6 % Normal 4.0-14.0 [facility] Comment on above: Order Comment: Order Added by Discern Expert. Performed By: #### 7 [id number], [id number], 7236307, 6250278, [id number] #### [facility] [address] [place] [address] Monocytes/Leukocytes Auto (Bld) [Pure # fraction] 0.5 E9/L Normal 0.2-1.0 [facility] Comment on above: Order Comment: Order Added by Discern Expert. Performed By: #### 7 [id number], [id number], 7641816, 9402658, [id number] #### [facility] [address] [place] [address] 36718 Neutrophils/100 WBC (Bld) 58.1 % Normal 36.0-75.0 [facility] Comment on above: Order Comment: Order Added by Discern Expert. Performed By: #### 7 [id number], [id number], 0763543, 3591329, [id number] #### [facility] [address] [place] [address] 92705 Neutrophils/Leukocyte s Auto (Bld) [Pure # fraction] 3.7 E9/L Normal 2.0-7.5 [facility] Comment on above: Order Comment: Order Added by Discern Expert. Performed By: #### 7 [id number], [id number], 0459831, 3929956, [id number] #### [facility] [address] [place] [address] BMPon 05-30-2022 Anion gap [Moles/Vol] 11 mmol/L Normal 6-16 [facility] Comment on above: Performed By: #### 7 [id number], [id number], 1908084, 2678561, [id number] #### [facility] [address] [place] [address] Calcium [Mass/Vol] 9.1 mg/dL Normal 8.9-11.1 [facility] Comment on above: Performed By: #### 7 [id number], [id number], 8303966, 8218318, [id number] #### [facility] [address] [place] [address] Chloride [Moles/Vol] 102 mmol/L Normal 101-111 [facility] Comment on above: Performed By: #### 7 [id number], 5585115, 0923414, 3172212, [id number] #### [facility] [address] [place] [address] CO2 [Moles/Vol] 28 mmol/L Normal 21-31 [facility] Comment on above: Performed By: #### 7 [id number], 6053603, 5524577, 4591255, [id number] #### [facility] [address] [place] [address] Creatinine [Mass/Vol] 0.7 mg/dL Normal 0.5-1.3 [facility] Comment on above: Performed By: #### 7 [id number], 6145046, 3234914, 5213389, [id number] #### [facility] [address] [place] [address] Glucose [Mass/Vol] 115 mg/dL Normal 55-199 [facility] Comment on above: Result Comment: If t his glucose result represents a fasting glucose, interpretation should refer to the following reference range: 55-99 mg/dL Performed By: #### 7 [id number], 3265623, 5997738, 7432519, [id number] #### [facility] [address] [place] [address] Potassium [Moles/Vol] 4.1 mmol/L Normal 3.5-5.3 [facility] Comment on above: Performed By: #### 7 [id number], 0112719, 8798847, 7248204, [id number] #### [facility] [address] [place] [address] Sodium [Moles/Vol] 137 mmol/L Normal 135-145 [facility] Comment on above: Performed By: #### 7 [id number], 4635847, 7434479, 4703460, [id number] #### [facility] [address] [place] [address] Urea nitrogen [Mass/Vol] 14 mg/dL Normal 5-21 [facility] Comment on above: Performed By: #### 7 [id number], 3375131, 8293377, 4984853, [id number] #### [facility] [address] [place] [address] Urea nitrogen/Creatinine [Mass ratio] 20 No Units Normal 10-20 [facility] Comment on above: Performed By: #### 7 [id number], [id number], 5132082, 8933043, [id number] #### [facility] [address] [place] [address] CBC w/ Auto Diffon Erythrocyte distribution width (RBC) [Ratio] 13.7 % Normal 10.9-14.2 [facility] Comment on above: Performed By: #### 7 [id number], 4368892, 0975131, 3110623, [id number] #### [facility] [address] [place] [address] Hematocrit (Bld) [Volume fraction] 41.6 % Normal 34.0-46.0 [facility] Comment on above: Performed By: #### 7 [id number], 2187870, 0744127, 3757051, [id number] #### [facility] [address] [place] [address] Hemoglobin (Bld) [Mass/Vol] 14.7 g/dL Normal 12.0-16.0 [facility] Comment on above: Performed By: #### 7 [id number], 8732331, 1874468, 6806454, [id number] #### [facility] [address] [place] [address] MCH (RBC) [Entitic mass] 32.5 pg Normal 27.0-34.0 [facility] Comment on above: Performed By: #### 7 [id number], 2656006, 5992053, 9243569, [id number] #### [facility] [address] [place] [address] MCHC (RBC) [Mass/Vol] 35.4 g/dL Normal 31.4-36.0 [facility] Comment on above: Performed By: #### 7 [id number], 6752046, 9421977, 4964177, [id number] #### [facility] [address] [place] [address] MCV (RBC) [Entitic vol] 91.8 fL Normal 80.0-100.0 [facility] Comment on above: Performed By: #### 7 [id number], 2221252, 9941798, 3040387, [id number] #### [facility] [address] [place] [address] Platelet mean volume (Bld) [Entitic vol] 9.3 fL Normal 6.4-10.8 [facility] Comment on above: Performed By: #### 7 [id number], 5629409, 0482782, 4016515, [id number] #### [facility] [address] [place] [address] Platelets (Bld) [#/Vol] 181.0 E9/L Normal 150.0-500.0 [facility] Comment on above: Performed By: #### 7 [id number], 8267042, 9042181, 6871992, [id number] #### [facility] [address] [place], [place] [id number] RBC (Bld) [#/Vol] 4.5 E12/L Normal 4.3-5.9 [facility] Comment on above: Performed By: #### 7 [id number], 1566009, 5467624, 3155603, [id number] #### [facility] [address] [place] [address] WBC corrected for nucl RBC Auto (Bld) [#/Vol] 6.4 E9/L Normal 4.0-11.0 [facility] Comment on above: Performed By: #### 7 [id number], 9305782, 4439632, 9255008, 56234942 #### [facility] [address] [place] [address] CHEMISTRYOrdered By: SYSTEM SYSTEM on 05-30-2022 Anion gap [Moles/Vol] 11 mmol/L Normal 6 - 16 mEq/L [facility] [place] [facility] Calcium [Mass/Vol] 9.1 mg/dL Normal 8.9 - 11. 1 mg/dL [facility] Chloride [Moles/Vol] 102 mmol/L Normal 101 - 1 11 mmol/L [facility] CO2 [Moles/Vol] 28 mmol/L Normal 21 - 31 mmol/L [facility] Creatinine [Mass/Vol] 0.7 mg/dL Normal 0.5 - 1.3 mg/dL [facility] [place] GFR/1.73 sq M.predicted among blacks MDRD (S/P/Bld) [Vol rate/Area] mL/min/1.73 m2 Normal >=59mL/min/1. 73 m2 [facility] [place] S GFR/1.73 sq M.predicted among non-blacks MDRD (S/P/Bld) [Vol rate/Area] mL/min/1.73 m2 Normal >=59mL/min/1. 73 m2 [facility] [place] S Glucose [Mass/Vol] 115 mg/dL Normal 55 - 199 mg/dL [facility] [place] [facility] Potassium [Moles/Vol] 4.1 mmol/L Normal 3.5 - 5.3 mmol/L [facility] [place] [facility] Sodium [Moles/Vol] 137 mmol/L Normal 135 - 145 mmol/L [facility] [place] [facility] Urea nitrogen [Mass/Vol] 14 mg/dL Normal 5 - 21 mg/dL [facility] [place] [facility] Urea nitrogen/Creatinine [Mass ratio] 20 mg/mg Normal 10 - 20 [facility] [place] CHEMISTRYOrdered By: Rubi jordan on 05-30-2022 HbA1c (Bld) [Mass fraction] 6.2 % High <=5.9% [facility] ChemAutoSS Consent for Treatmenton Consent for Treatment [id number] .[id number]:127 Normal [facility] HEMATOLOGYOrdered By: SYSTEM SYSTEM on 05-30-2022 [...] 9.3 fL Normal 6.4 - 10.8 fL [facility] HemeAutoSS Platelets (Bld) [#/Vol] 181.0 E9/L Normal 150.0 - 500.0 E9/L [facility] HemeAutoSS RBC (Bld) [#/Vol] 4.5 E12/L Normal 4.3 - 5.9 E12/L [facility] HemeAutoSS WBC corrected for nucl RBC Auto (Bld) [#/Vol] 6.4 E9/L Normal 4.0 - 11.0 E9/L [facility] HemeAutoSS [id number] 05-30-2022 HbA1c (Bld) [Mass fraction] 6.2 % High <=5.9 [facility] Comment on above: Performed By: #### 7 [id number] #### [facility] [address] [place] [address] XR Chest 2 Viewson XR Chest 2 Views Exam Date/Time: 05/30/2022 [...] M.D. Transcribed by: JODEE Technologist: HALEY Normal [facility] eGFRon 05-30-2022 GFR/1.73 sq M.predicted among blacks MDRD (S/P/Bld) [Vol rate/Area] mL/min/{1.73_m2} Normal >=59 [facility] Comment on above: Order Comment: Order added by Discern Expert. Result Comment: eGFR is race adjusted. AA=. Performed By: #### 7 [id number] #### [facility] [address] [place] [address] GFR/1.73 sq M.predicted among non-blacks MDRD (S/P/Bld) [Vol rate/Area] mL/min/{1.73_m2} Normal >=59 [facility] Comment on above: Order Comment: Order added by Discern Expert. Result Comment: Scarf And Anneal Operator arnulfo kidney disease could be indicated at eGFR's of less than 60 mL/min/1.73m2. Kidney failure is indicated at less than 15 mL/min/1.73m2. Performed By: #### 7 [id number] #### [facility] [address] [place] [address] Physician Orderon 05-08-2022 Physician Order [id number] .[id number]:127 Normal [facility] CBC AUTO DIFFon 11-11-2021 BASO # 0.0 103/ul Normal 0.0-0.1 [facility] Comment on above: Performed By: #### C BC #### [facility] [address] [place] [address] Dr. Farhat Mcneil Basophils/100 WBC (Bld) 0.6 % Normal 0.2-2.0 [facility] Comment on above: Performed By: #### C BC #### [facility] [address] [place] [address] Dr. Farhat Mcneil EO # 0.1 103/ul Normal 0.0-0.7 [facility] Comment on above: Performed By: #### C BC #### [facility] [address] [place] [address] Dr. Farhat Mcneil Eosinophils/100 WBC (Bld) 1.1 % Normal 0.9-7.0 [facility] Comment on above: Performed By: #### C BC #### [facility] [address] [place] [address] Dr. Farhat Mcneil Erythrocyte distribution width (RBC) [Ratio] 12.3 % Normal 11.0-15.0 [facility] Comment on above: Performed By: #### C BC #### [facility] [address] [place] [address] Dr. Farhat Mcneil Hematocrit (Bld) [Volume fraction] 43.6 % Normal 36.0-48.0 [facility] Comment on above: Performed By: #### C BC #### [facility] [address] [place] [address] Dr. Farhat Mcneil Hemoglobin (Bld) [Mass/Vol] 15.0 g/dL Normal 12.0-16.0 [facility] Comment on above: Performed By: #### C BC #### [facility] [address] [place] [address] Dr. Farhat Mcneil IG # 0.02 10e3/ul Normal 0.00-0.03 [facility] Comment on above: Performed By: #### C BC #### [facility] [address] [place] [address] Dr. Farhat Mcneil IG % 0.3 % Normal 0.0-0.5 [facility] Comment on above: Performed By: #### C BC #### [facility] [address] [place] [address] Dr. Farhat Mcneil LYMPH # 2.2 103/ul Normal 1.2-3.8 [facility] Comment on above: Performed By: #### C BC #### [facility] [address] [place] [address] Dr. Farhat Mcneil Lymphocytes/100 WBC (Bld) 31.0 % Normal 20.5-60.0 [facility] Comment on above: Performed By: #### C BC #### [facility] [address] [place] [address] Dr. Farhat Mcneil MANUAL DIFF REQ NO Normal [facility] Comment on above: Performed By: #### C BC #### [facility] [address] [place] [address] Dr. Farhat Mcneil MCH (RBC) [Entitic mass] 31.5 pg Normal 26.7-34.0 [facility] Comment on above: Performed By: #### C BC #### [facility] [address] [address] [address] Farhat Mcneil MCHC (RBC) [Mass/Vol] 34.4 g/dL Normal 29.9-35.2 [facility] Comment on above: Performed By: #### C BC #### [facility] [address] [place] [address] Dr. Farhat Mcneil MCV (RBC) [Entitic vol] 91.6 fL Normal 81.0-99.0 [facility] Comment on above: Performed By: #### C BC #### [facility] [address] [place] [address] Dr. Farhat Mcneil MONO # 0.5 103/ul Normal 0.3-0.8 [facility] Comment on above: Performed By: #### C BC #### [facility] [address] [place] [address] Dr. Farhat Mcneil Monocytes/100 WBC (Bld) 6.3 % Normal 1.7-12.0 [facility] Comment on above: Performed By: #### C BC #### [facility] [address] [place] [address] Dr. Farhat Mcneil NEUT # 4.3 103/ul Normal 1.4-6.5 [facility] Comment on above: Performed By: #### C BC #### [facility] [address] [place] [address] Dr. Farhat Mcneil Neutrophils/100 WBC (Bld) 60.7 % Normal 43.0-75.0 [facility] Comment on above: Performed By: #### C BC #### [facility] [address] [place] [address] Dr. Farhat Mcneil Platelet mean volume (Bld) [Entitic vol] 10.6 fL Normal 9.5-13.5 [facility] Comment on above: Performed By: #### C BC #### [facility] [address] [place] [address] Dr. Farhat Mcneil PLT 187 103/ul Normal 150-450 [facility] Comment on above: Performed By: #### C BC #### [facility] [address] [place], [place] [id number] Dr. Farhat Mcneil RBC 4.76 106/ul Normal 4.20-5.40 [facility] Comment on above: Performed By: #### C BC #### [facility] [address] [address] [address] Farhat Mcneil WBC 7.1 103/ul Normal 4.0-11.0 [facility] Comment on above: Performed By: #### C BC #### [facility] [address] [address] [address] Farhat Mcneil LIPID PROFILEon 11-11-2021 CHOL-HDL RATIO NORM SEE BELOW Normal [facility] Comment on above: Result Comment: 3.3 - 4.4 LOW RISK 4.4 - 7.1 AVERAGE RISK 7.1 - 11.0 MODERATE RISK >11.0 HIGH RISK Performed By: #### L IPID, T4, CMP, TSH #### [facility] [address] [place] [address] Dr. Farhat Mcneil Cholesterol [Mass/Vol] 286 mg/dL Critically high <=200 [facility] Comment on above: Performed By: #### L IPID, T4, CMP, TSH #### [facility] [address] [address] [address] Farhat Mcneil Cholesterol in HDL [Mass/Vol] 44 mg/dL Normal [facility] Comment on above: Performed By: #### L IPID, T4, CMP, TSH #### [facility] [address] [address] [address] Farhat Mcneil Cholesterol in LDL [Mass/Vol] 187.2 mg/dL Normal [facility] Comment on above: Performed By: #### L IPID, T4, CMP, TSH #### [facility] [address] [address] [address] Farhat Mcneil Cholesterol.total/Cho lesterol in HDL [Mass ratio] 6.5 {ratio} Normal [facility] Comment on above: Performed By: #### L IPID, T4, CMP, TSH #### [facility] [address] [address] [address] Farhat Mcneil HDL NORMAL > or = 60 mg/dl - LO W CARDIOVASCULAR RISK <40 mg/dl - HIGH CARDIOVASCULAR RISK Normal [facility] Comment on above: Performed By: #### L IPID, T4, CMP, TSH #### [facility] [address] [address] [address] Farhat Mcneil LDL CALC NORMAL SEE BELOW Normal [facility] Comment on above: Result Comment: <100 mg/dl OPTIMAL 100 - 129 mg/dl NEAR OR ABOVE OPTIMAL 130 - 159 mg/dl BORDERLINE HIGH 160 - 189 mg/dl HIGH >190 mg/dl VERY HIGH Performed By: #### L IPID, T4, CMP, TSH #### [facility] [address] [address] [address] Farhat Mcneil Triglyceride [Mass/Vol] 274 mg/dL Critically high <=150 [facility] Comment on above: Performed By: #### L IPID, T4, CMP, TSH #### [facility] [address] [address] [address] Farhat Mcneil VLDL CALC 54.8 mg/dL Normal [facility] Comment on above: Performed By: #### L IPID, T4, CMP, TSH #### [facility] [address] [address] [address] Farhat Mcneil PROF 14(COMP METB)on 022 Albumin [Mass/Vol] 3.8 g/dL Normal 3.5-5.0 [facility] Comment on above: Performed By: #### L IPID, T4, CMP, TSH #### [facility] [address] [address] [address] Farhat Mcneil Albumin/Globulin [Mass ratio] 1.0 {ratio} Normal [facility] Comment on above: Performed By: #### L IPID, T4, CMP, TSH #### [facility] [address] [address] [address] Farhat Mcneil ALP [Catalytic activity/Vol] 102 U/L Normal 38-126 [facility] Comment on above: Performed By: #### L IPID, T4, CMP, TSH #### [facility] [address] [address] [address] Farhat Mcneil ALT [Catalytic activity/Vol] 46 U/L Normal 9-52 [facility] Comment on above: Performed By: #### L IPID, T4, CMP, TSH #### [facility] [address] [address] [address] Farhat Mcneil Anion gap [Moles/Vol] 9.2 mmol/L Normal [facility] Comment on above: Performed By: #### L IPID, T4, CMP, TSH #### [facility] [address] [place] [address] Dr. Farhat Mcneil AST [Catalytic activity/Vol] 21 U/L Normal 14-36 [facility] Comment on above: Performed By: #### L IPID, T4, CMP, TSH #### [facility] [address] [place] [address] Dr. Farhat Mcneil Bilirubin [Mass/Vol] 0.3 mg/dL Normal 0.2-1.3 [facility] Comment on above: Performed By: #### L IPID, T4, CMP, TSH #### [facility] [address] [place] [address] Dr. Farhat Mcneil Calcium [Mass/Vol] 9.0 mg/dL Normal 8.4-10.2 [facility] Comment on above: Performed By: #### L IPID, T4, CMP, TSH #### [facility] [address] [place] [address] Dr. Farhat Mcneil Chloride [Moles/Vol] 103 mmol/L Normal 98-107 [facility] Comment on above: Performed By: #### L IPID, T4, CMP, TSH #### [facility] [address] [place] [address] Dr. Farhat Mcneil CO2 [Moles/Vol] 30.7 mmol/L Critically high 22.0-30.0 [facility] Comment on above: Performed By: #### L IPID, T4, CMP, TSH #### [facility] [address] [place] [address] Dr. Farhat Mcneil Creatinine [Mass/Vol] 0.75 mg/dL Normal 0.52-1.04 [facility] Comment on above: Performed By: #### L IPID, T4, CMP, TSH #### [facility] [address] [address] [address] Farhat Mcneil EGFR-AF RUSSIAN >60 Normal >=60 [facility] Comment on above: Performed By: #### L IPID, T4, CMP, TSH #### [facility] [address] [address] [address] Farhat Mcneil EGFR-NON AF RUSSIAN >60 Normal >=60 [facility] Comment on above: Performed By: #### L IPID, T4, CMP, TSH #### [facility] [address] [address] [address] Farhat Mcneil Globulin (S) [Mass/Vol] 3.7 g/dL Normal [facility] Comment on above: Performed By: #### L IPID, T4, CMP, TSH #### [facility] [address] [address] [address] Farhat Mcneil Glucose [Mass/Vol] 126 mg/dL Critically high 74-106 [facility] Comment on above: Performed By: #### L IPID, T4, CMP, TSH #### [facility] [address] [address] [address] Farhat Mcneil Potassium [Moles/Vol] 3.9 mmol/L Normal 3.4-5.0 [facility] Comment on above: Performed By: #### L IPID, T4, CMP, TSH #### [facility] [address] [address] [address] Farhat Mcneil Protein [Mass/Vol] 7.5 g/dL Normal 6.1-8.2 [facility] Comment on above: Performed By: #### L IPID, T4, CMP, TSH #### [facility] [address] [address] [address] Farhat Mcneil Sodium [Moles/Vol] 139 mmol/L Normal 137-145 [facility] Comment on above: Performed By: #### L IPID, T4, CMP, TSH #### [facility] [address] [address] [address] Farhat Mcneil Urea nitrogen [Mass/Vol] 11.0 mg/dL Normal 7.0-17.0 [facility] Comment on above: Performed By: #### L IPID, T4, CMP, TSH #### [facility] [address] [address] [address] Farhat Mcneil Urea nitrogen/Creatinine [Mass ratio] 14.7 mg/mg Normal [facility] Comment on above: Performed By: #### L IPID, T4, CMP, TSH #### [facility] [address] [address] [address] Farhat Mcneil T4on 11-11-2021 T4 [Mass/Vol] 7.60 ug/dL Normal 5.53-11.00 [facility] Comment on above: Performed By: #### L IPID, T4, CMP, TSH #### [facility] [address] [address] [address] Farhat Mcneil TSHon 11-11-2021 TSH 2.278 uIU/mL Normal 0.470-4.680 [facility] Comment on above: Performed By: #### L IPID, T4, CMP, TSH #### [facility] [address] [address] [address] Farhat Mcneil TSH RANGE SEE BELOW Normal [facility] Comment on above: Result Comment: <0.3 4 UIU/ml HYPERTHYROID 0.34-5.60 UIU/ml EUTHYROID >5.60 UIU/ml HYPOTHYROID Performed By: #### L IPID, T4, CMP, TSH #### [facility] [address] [place] [address] Dr. Farhat Mcneil MRI Shoulder w/o + [...] by Josh Salguero on 10/21/2021 0956 Normal [facility] Coding Summary.on 10-05-2021 Coding Summary. CD:[id number] G h0bWw+PGhlYWQ+MS2GNZY xH91qnVSdeK8FO5uUPW3Q RMOTKUKPSX5PIS5kyKL4B SvnC2ZrcaTh RlthsEHjLN10ZKq1ZBT7i MqhJRsskS8ksKOgH7f8Je VsPK15xH02PRabILVuLkV 3LjZpbjsgbWFy P5inCdMxvBNcCgs+PHRhY mxlIHdpZHRoPScxMDAlJy XbbZhzND4cIr2yNTXvTMA vbGxhcHNlOiBj n1qtYVKuLMmeJA1doNgtR 0PkvNH9ZYFck5s8Ip07fD I+DKShMPW1iOpnWAnse57 1FjZgi8cnUNQ6 mMVqVOvdFBT7Y45sr2Q2A JXfRPXgRFP7aMA3hC2hsD vdhnmcB3NjdZVwUeY5XAO 5iKVjtW9wuMib yionyH8uRjb+K80VPE1OY GVYBS4MVhi1X3YpTzrdcW I+TC26XFRrKG34iSPpfNN is5elpQc0WwPt FIBvZWA8bYsiYKlld4DtJ MTfC83nfNHlj6P8VHGrtG nbwPYzMvKhgSD4oA4sPIg hcmmpk1ezrtoc Wkmst9dxhj86jW13H42uI SqjDCBzCEC9WWOuVQNufO hlyr1wlE1yUf8+SDkzt8g bq2iguCc9IsPk CQDqhkIdiTjaIPA8f0RtL s87E7AftYrcv6NaLua4gg 67aOIjx7B0oIM7LLtcSSE hgH3aYGpvFtD6 LJKrIuYbqK41fZRhIRejY x3ffRassGntBG7uYGEhzh akJDFrbF9lORMylNHzwRv pLH1uMENubczm h551VfLgUCA3ZUQslEMlP 3BrjI7xKgVbNDGyDZHpD4 LqeVGnDIusM022MZqsSqK 0FVBkgzOeQ1Md EIRckVbeDxS4f6J7Jo0Au 2IehlzsJQP7DZmsSXGcGr C9VsYnNmQ6O6NuDon0XXN xlNiiEL9sY5Kr KFWlqspcthzagSM5KWUhK KZkzW03aEVsCUknHr4dz6 C3u189LZFzBKGfyS86Et1 udDogMTBwdCBU aT6aufwar0xdppngUsYhR BQqQFp3TXk7YYCvvIgqQo PwPWI1NmH1HCP6qHRlwB0 egZjjictgeK5t Oyc+U13gkU3gCCZ3QZW8x bsgWOSgeqSnBJ93UA78X8 RyPjwvdGFibGU+PGRpdiB oeCmkNY3iIhWa q6pti1KjTYhyK9HjZGEyJ MffJeh3MSUjUIZ1aMH7lF 4dBQPhDKcrk5M5oTM6V6J gmhUwbq0la1hq VFRcIMvcW32cdPRea8X1C OXrzFZ4RBNdyUejQfAhpL 93Oyc+UFNtvAgbf6BvMqc fq0ila6jjaSz9 FuYmWEXmdtOatJjqZAZ5v 3QlVs50O30kMUhwNMYiYQ JtCRLuYSVapLrnyq3kdE4 wIi8+PGNvbCB3 cME4mU1qOXIyUmL4RQbjT 432AaEhsMTqSqfka9xyb8 syrHr8PgFuGKRafoSjmTl jHQE9l7CdEn34 D22tRSqiRZRsXSSkPGGxA NRgvWxnwk8iwI3vMh6+PC 5xq3dimn34jZ54hWJ+PHR jHVH9nEzoKDor HZJukV1hPPenVrJ9KNExH sNrkR01wXLhRUlgZp7gkY aceRuaQA0rZVFvwexrl19 7LgIvh3rjSYPw dGWdKMjmPSL3N86ml5N8G FRkEXTmVLU3dHD4oH7rnV lnbjogbGVmdDsgdmVydGl sMXxfFBbpQ426 IHRvcDsnPlBhdGllbnQgT qVeAOl4X8NsDde1LLJurP jqWO0maSLhJPfsFf5kmKo guQnlDO7uWXJk rovyz940KuAcs9hzRVNya FXiYIcsSJG6A22vh2V4YC NhSCVnLRI5sWN8eK5dvIa nbjogbGVmdDsg drPujYliRQfmVNgtN836T HRvcDsnPkJpcnRoIERhdG H9JN05KW10nOUsw0G4zYU 5Y0YiULUtfiad hjcdlYT3FCWyUFEgcM43C r8zgZgdDh0sVIWnWDS1RB WvtIQrL1SonU1aWvPrDLK mKNZeE7JenOBs XCduA170IMapPhG6JAMvn zWoP6RhGUYblKwgRtN4f5 I8Qm2TN5B3JH47UJ64hHN ov0U6eZZ4G8Bj TNKcfdeqqkecqEE5FETrK PKwrZ98Bb2iaDhjBw1pOM HvKRH8RYIrrCDlR2GiyN1 yOiAjMDAwMDAw U8ZvbMMlXNllP930RVxsK mR2UBXqzxPrL9SkFTQodO mdAsW4e3I8Ik1JMXo6TK9 3QB87vHPqs2S6 oSI4M8QwJUGbusgndnhzn EN7PLFzHBFlcX28Dr1nyD kjOo3jOPCyDZK1TTFnkZP fM5JgsM5uRuUk HBEeFDCfL7ZejVUdKMfxD 194JJxqXnO8SZXeceFzA2 VzGGSddQkeMnQ4e1M8Se0 DVUWwOB01YVE1 zKW5GV47ZB39Y7IqByplw GFibGU+PHRhYmxlIHdpZH RoPScxMDAlJyBzdHlsZT0 uLz9lTQRhSKGh hAfwlUPvKbGid5ekILTxP ZskRN1gfBgtO9LdyLE1TU Ylj9e9Ut47D40qC3QzjSJ +SIRznAO9iTJ2 iS2iBuFaPuP7EQkcY637N rHkdTRqFcfro0oqq8kejY v5OaY9SCStvqQxkChuRVG 3k6BzSe43X21h IHdpZHRoPSIxNSUiIHZhb Cebgp0hcW8sLh2+PGNvbC N3cQL8nH8kElFlNzZ8XMb wG366DiLopAMd Rghmg8jox4mwqLx3XjFfO LXyggZikUllEKV2o8TbWj 67T1UdmUuzx7MnEwb7iw0 4cEJlb5N9bHJ0 Y6CjBPTplaevnZGvxNaxL W7fTVRgyhzoOVEdhT0iKP GcM4o5YdJpWrK0PZmfL1M ydzK5LPMdmWIy WKioTTW3E85eo9T3NQTvM BIfDCU3yNR3cT4shYnfgm ogbGVmdDsgdmVydGljYWw rJAlvQ817IEPw sEmfGULojF2uMMNiaGSez EsgKU8pEXUpytgiZy7QA5 JFLCBMVUNSRVRJQSBNPC9 3DK29wMEne3X3 nGH9T7VeAFXqztocxkirn DN2TIGrRADmkX17sUWdFW feRu7mk6Z8w313HQCjYSY gqH04Wu5twWyo KSXflLFDrC7daixus0lfn mqdYyFjDUGhIBv2BGx6JY HqbNkwMqEvGWI6KkA4RZQ 1gZExlF8shTjf tklczV0yMfa+MDkvMTEvM Af1RCtsiEK+ZNEqVVZ2wQ feURiyMOZbeW8rTIZnH2x 4AdNoCdU5JSkx L1GyFTWweqnwEt67bY7cS bJlHoP6MJufR5TnoqY1OV TgnBZzUTezFBV8M12sm9C 2NJReWRBiSPW1 nDA4lB2ctUtqjspjnQDzk DsgdmVydGljYWwtYWxpZ2 46IHRvcDsnPjYwIFllYXJ uGW25LA64nTGb m1B8oGU3L4RpSRLocsyvt pnloYF1FUYzJSNpbK30rW IdJIkbOh5dg5L4w294RFL fHOOkiT55Ah4l mHevJEAofVCZyN3kmwnrd 3zxwkquEcKfTGTnAZv0YD y8PWEfxVgbNyFnLHN4VrT 7WRV8oANxmD5f nUedcyaruU7vMkr+RmVtY WgkUU57HR96pYRzr1P4pU F8P0ArRQCxhcdiqjwvwOK 1HWPbYDSbiN67 jMZjONupVe0dk4D8r282G NXpFLDqlH33Rv0fxYyuSH UbtZSQlI7ygisia4ldnum gIzAwMDAwMDt0 HZi6JZZyfDqyZwByLXM7H cB4ESO9cDPrrS4aqGynqy upsC0zLal+N4E0eZI3rIJ udDwvdGQ+PC90 yx09K4QvSiokGpe1OLSnZ PH8mBX4rM1lKDPbXWezy6 D4uKB9M1CpztTsrb7lj3s bYLWxCBpiW27l eHOqv0G5JLNuxBC3VAWzb QihDeIoiX11Bhv+PGNvbG zvl4LuCfrzo3hea8tbuQp 9IjMwJSIgdmFs uLmfYRB5g6ClKn02Y89gJ HdpZHRoPSIzMCUiIHZhbG fpoh6yjV2cGr1+PGNvbCB 1tQD6aS9sUpNj UlV8TAfmH742AzLmlYLtM ojvx0mta0ozsZs7FpBdTX VcgwWmsXfuCJF9w9UlCp2 3S0QiwPslr3Vj Rss2sn58cTOmo5H7cMD5Z 3BhZGRpbmctbGVmdDogMC 5fNOJifyunQQBieY8bGBX eQ5p7TwSoHqF4 SKxkO3IhdgF1KHAwyUHtB HFhpSJWjE6ncknmv0rsab gcJlIiJHEjSNf8WIw4EJH saWduOiBsZWZ0 SxG1QNM7xKYaxK3apPbgo zmfdY3jZrl+FRq4o6cddY TmPI2luFY5HD78QG45vZT wm3Q0rDB3S7Zk YFOlkoppghzxvZC3TPHmK JUrqV42Jg0laGvuYg6hDX VqMYG7GISenMGfB2NdqK8 yOiAjMDAwMDAw Z8FhnLOaCYyyY243OYmaA zK3DRQitgIgZ2AnOPAgcZ scJuK1t3T3Fd9QAO13LD7 1GR30rHNbr4C5 qQH0H2HrXBZvgnushxkoj PK3XGOoSSGhpI95Ru5sqQ rfSb9aQEYhYQZ7NJQkpUU dH5QvjK8rUuRq CENaWOEvS7LhuPSpUYorV 310SHiqEtR8HSBkluIcF2 JlZKYmgSxiEcR3d9O5Cs2 MIj02HU07KQ20 tXDah8F1uHT3S9OcFWFmo lhaccxkrMU7JAZzCJLroI 34Br6oyAmkOg9pEWDsWOQ 4MWHgaIXgQ5Xt jN7dEvEaYCFeRFVxA3Cxu SBkWUeyD401VSobLuZ8QH XdevObR5XpSONxzXznGbG 4s5M6Ck0CNUeu ygd2W7JjXmlyaKW+PC90Y RUbGH02hKEmjQLek6xodU h5KaUpCBAqJRV5uMqkJLc zs9TfPZMkI58j bGFw (more content not included)... Normal [facility] Consent for Treatmenton 12-3 Consent for Treatment [id number]#1 .00CD:127 Normal [facility] Bone Scan 3 Phaseon 09-20 NM Bone [...] 21.3 Imaging Post Administration (hrs): 3 Normal [facility] Physician Orderon 09-12-2021 Physician Order [id number]# 1.00CD:127 Normal [facility] MRI Shoulder w/o Lefton 12-0 MRI Shoulder [...] by Jackson Ma on 08/28/2021 0949 Normal [facility] Specialist FLUORO FOR SURGICAL PROCEDUR ESon 09-11-2020 [...] Phillip Corral MD 09/11/[address] [facility] Rory, Chpo Incoming Radiant Results From [employer]AMED[employer] - 09/11/2020 5:09 PM EST FLUORO FOR SURGICAL PROCEDURES : 09/11/2020 3:53 PM CLINICAL HISTORY: Lumbar Diskectomy . COMPARISON: None available. Intraoperative fluoroscopy was provided for Dr. Santosh gonzalez. A total of 1 seconds of fluoroscopy was used, with 4 fluoroscopic stills saved. No diagnostic images were obtained. Please see Dr. Rios surgical notes for completeness. [place], [place] FLUORO FOR SURGICAL PROCEDURES : 09/11/2020 3:53 PM CLINICAL HISTORY: Lumbar Diskectomy . COMPARISON: None available. Intraoperative fluoroscopy was provided for Dr. Santosh gonzalez. A total of 1 seconds of fluoroscopy was used, with 4 fluoroscopic stills saved. No diagnostic images were obtained. Please see Dr. Rios surgical notes for completeness. [place], [place] POCT Glucoseon 09-11-2020 Glucose [Mass/Vol] 145 mg/dL Critically high 60-115 M [facility] Comment on above: Performed By: #### P GLU #### [facility] [address] [place] [address] POC Performed on ACCU-CHEK Normal [facility] Comment on above: Performed By: #### P GLU #### [facility] [address] [place] [address] Glucose [Mass/Vol] 145 mg/dL High 60 - 115 mg/dl [place], [place] Interpretation and review of laboratory results Abnormal [place], [place] Performed on ACCU-CHEK [facility], [place] Glucose [Mass/Vol] 131 mg/dL Critically high 60-115 M [facility] Comment on above: Performed By: #### P GLU #### [facility] [address] [place] [address] POC Performed on ACCU-CHEK Normal [facility] Comment on above: Performed By: #### P GLU #### [facility] [address] [place] [address] Glucose [Mass/Vol] 131 mg/dL High 60 - 115 mg/dl [facility], [place] Interpretation and review of laboratory results Abnormal [place], [place] Performed on ACCU-CHEK [place], [place] Surgical Specimenon 09-11-20 Surgical Specimen [facility] [address] [place] [address] FINAL SURGICAL PATHOLOGY REPORT Patient Name: JORDY DUNNE Accession No: [id number] Age Sex: 1960 Location: [facility] [id number] Account No: [id number] Collected: 09/11/2020 Med Rec No: [id number] Received: 09/12/2020 Attend Phys: MAGDALENO RIOS Completed: [...] one cassette after brief decalcification. ALIFA/ALIFA CPT: 12282 X1 07463 X1 VENKATESH COTTON M.D. 09/13/2020 Electronically signed out by [address] [facility] Comment on above: Performed By: #### S UR #### [facility] [address] [facility] [address] XR CHEST PORTABLEon 09-11-20 20 INR Coag (Bld) [Relative time] NO ACUTE ACTIVE CARDIOPULMONARY PROCESS [place], [place] EXAMINATION: CHEST PORTABLE VIEW CLINICAL HISTORY: Back pain COMPARISONS: None FINDINGS: Single views of the chest is submitted. The cardiac silhouette is enlarged. Pulmonary vascular unremarkable. Right sided trachea. No focal infiltrates. No Pneumothoraces. [place], [place] Rory, [facility] Incoming Radiant Results From Interview Master - 09/11/2020 7:58 AM EST EXAMINATION: CHEST PORTABLE VIEW CLINICAL HISTORY: Back pain COMPARISONS: None FINDINGS: Single views of the chest is submitted. The cardiac silhouette is enlarged. Pulmonary vascular unremarkable. Right sided trachea. No focal infiltrates. No Pneumothoraces. IMPRESSION: NO ACUTE ACTIVE CARDIOPULMONARY PROCESS [place] XR LUMBAR SPINE (MIN 4 VIEWS )on 09-11-2020 Rory, [facility] Incoming Radiant Results From [employer] - 09/11/2020 10:22 AM EST EXAMINATION: XR [...] show degenerative changes.. IMPRESSION NO ACUTE FRACTURE. [place] EXAMINATION: XR LUMBAR SPINE (MIN 4 [...] show degenerative changes.. IMPRESSION NO ACUTE FRACTURE. [facility] [place] APTTon 09-10-2020 aPTT Coag (Bld) [Time] 30.5 s [place], [place] Comment on above: Effective 07/25/2020: Heparin Therapeutic Range: 64.0 98.0 seconds. CBC Auto Differentialon 08-22 Basophils (Bld) [#/Vol] 0.1 10*3/uL 0 - 0.2 K/uL [place] Basophils/100 WBC (Bld) 0.7 % [place] Eosinophils (Bld) [#/Vol] 0.0 10*3/uL 0 - 0.7 K/uL [place] Eosinophils/100 WBC (Bld) 0.2 % [place] Erythrocyte distribution width (RBC) [Ratio] 13.2 % 11.5 - 14.5 % [place] Hematocrit (Bld) [Volume fraction] 41.0 % 37 - 47 % [place] Hemoglobin (Bld) [Mass/Vol] 14.2 g/dL 12 - 16 g/dL [place] Interpretation and review of laboratory results Abnormal [place] Lymphocytes (Bld) [#/Vol] 2.9 10*3/uL 1 - 4.8 K/uL [place] Lymphocytes/100 WBC (Bld) 25.0 % [place] MCH (RBC) [Entitic mass] 32.9 pg High 27 - 31.3 pg [place] MCHC (RBC) [Mass/Vol] 34.6 % 33 - 37 % [place] MCV (RBC) [Entitic vol] 95.0 fL 82 - 100 fL [place] Monocytes (Bld) [#/Vol] 0.4 10*3/uL 0.2 - 0.8 K/uL [place] Monocytes/100 WBC (Bld) 3.8 % [place] Neutrophils Absolute 8.2 K/uL High 1.4 - 6 .5 K/uL [place] Neutrophils/100 WBC (Bld) 70.3 % [place] Platelets (Bld) [#/Vol] 196 10*3/uL 130 - 400 K/uL [place] RBC (Bld) [#/Vol] 4.32 10*6/uL [place] WBC (Bld) [#/Vol] 11.6 10*3/uL High 4.8 - 10.8 K/uL [place] CBC With Platelet and Differ entialon 09-10-2020 Basophils (Bld) [#/Vol] 0.1 10*3/uL Normal 0.0-0.2 [facility] Comment on above: Performed By: #### C BCWD #### [facility] [address] [place] [address] Basophils/100 WBC (Bld) 0.7 % Normal [facility] Comment on above: Performed By: #### C BCWD #### [facility] [address] [place] [address] Eosinophils (Bld) [#/Vol] 0.0 10*3/uL Normal 0.0-0.7 [facility] Comment on above: Performed By: #### C BCWD #### [facility] [address] [place] [address] Eosinophils/100 WBC (Bld) 0.2 % Normal [facility] Comment on above: Performed By: #### C BCWD #### [facility] [address] [place] [address] Erythrocyte distribution width (RBC) [Ratio] 13.2 % Normal 11.5-14.5 [facility] Comment on above: Performed By: #### C BCWD #### [facility] [address] [place] [address] Hematocrit (Bld) [Volume fraction] 41.0 % Normal 37.0-47.0 [facility] Comment on above: Performed By: #### C BCWD #### [facility] [address] [place] [address] Hemoglobin (Bld) [Mass/Vol] 14.2 g/dL Normal 12.0-16.0 [facility] Comment on above: Performed By: #### C BCWD #### [facility] [address] [place] [address] Lymphocytes (Bld) [#/Vol] 2.9 10*3/uL Normal 1.0-4.8 [facility] Comment on above: Performed By: #### C BCWD #### [facility] [address] [place] [address] Lymphocytes/100 WBC (Bld) 25.0 % Normal [facility] Comment on above: Performed By: #### C BCWD #### [facility] [address] [place] [address] MCH (RBC) [Entitic mass] 32.9 pg Critically high 27.0-31.3 [facility] Comment on above: Performed By: #### C BCWD #### [facility] [address] [place] [address] MCHC (RBC) [Mass/Vol] 34.6 % Normal 33.0-37.0 [facility] Comment on above: Performed By: #### C BCWD #### [facility] [address] [place] [address] MCV (RBC) [Entitic vol] 95.0 fL Normal 82.0-100.0 [facility] Comment on above: Performed By: #### C BCWD #### [facility] [address] [place] [address] Monocytes (Bld) [#/Vol] 0.4 10*3/uL Normal 0.2-0.8 [facility] Comment on above: Performed By: #### C BCWD #### [facility] [address] [place] [address] Monocytes/100 WBC (Bld) 3.8 % Normal [facility] Comment on above: Performed By: #### C BCWD #### [facility] [address] [place] [address] Neutrophils (Bld) [#/Vol] 8.2 10*3/uL Critically high 1.4-6.5 [facility] Comment on above: Performed By: #### C BCWD #### [facility] [address] [place] [address] Neutrophils/100 WBC (Bld) 70.3 % Normal [facility] Comment on above: Performed By: #### C BCWD #### [facility] [address] [place] [address] Platelets (Bld) [#/Vol] 196 10*3/uL Normal 130-400 [facility] Comment on above: Performed By: #### C BCWD #### [facility] [address] [place] [address] RBC (Bld) [#/Vol] 4.32 10*6/uL Normal 4.20-5.40 [facility] Comment on above: Performed By: #### C BCWD #### [facility] [address] [facility] [address] WBC (Bld) [#/Vol] 11.6 10*3/uL Critically high 4.8-10.8 [facility] Comment on above: Performed By: #### C BCWD #### [facility] [address] [facility] [address] COVID-19on 09-10-2020 COVID-19, NAAT Not Detected Normal Not Detect [facility] Comment on above: Result Comment: Rapi [...] authorized laboratories. Fact sheet for Healthcare Providers: https://www.fda.gov/media/259124/download Fact sheet for Patients: https://www.fda.gov/media/169434/download METHODOLOGY: Isothermal Nucleic Acid Amplification Performed By: #### C OVPC #### [facility] [address] [facility] [address] SARS-CoV-2, NAAT Not Detected Not Detected [place] Comment on above: Rapid NAAT: Negative [...] authorized laboratories. Fact sheet for Healthcare Providers: https://www.fda.gov/media/762805/download Fact sheet for Patients: https://www.fda.gov/media/556284/download METHODOLOGY: Isothermal Nucleic Acid Amplification Comprehensive Metabolic Pane felipa 09-10-2020 Albumin [Mass/Vol] 3.9 g/dL Normal 3.5-4.6 [facility] Comment on above: Performed By: #### C MP #### [facility] [address] [place] [address] ALP [Catalytic activity/Vol] 76 U/L Normal 40-130 [facility] Comment on above: Performed By: #### C MP #### [facility] [address] [place] [address] ALT [Catalytic activity/Vol] 22 U/L Normal 0-33 [facility] Comment on above: Result Comment: Spec imen hemolysis has exceeded the interference as defined by Shikha. Result may be affected. Suggest recollection if clinically indicated. Performed By: #### C MP #### [facility] [address] [place] [address] Anion gap [Moles/Vol] 9 mmol/L Normal 9-15 [facility] Comment on above: Performed By: #### C MP #### [facility] [address] [place] [address] AST [Catalytic activity/Vol] 18 U/L Normal 0-35 [facility] Comment on above: Result Comment: Spec imen hemolysis has exceeded the interference as defined by Shikha. Value may be falsely increased. Suggest recollection if clinically indicated. Performed By: #### C MP #### [facility] [address] [place] [address] Bilirubin [Mass/Vol] 0.3 mg/dL Normal 0.2-0.7 [facility] Comment on above: Performed By: #### C MP #### [facility] [address] [place] [address] Calcium [Mass/Vol] 9.2 mg/dL Normal 8.5-9.9 [facility] Comment on above: Performed By: #### C MP #### [facility] [address] [place] [address] Chloride [Moles/Vol] 103 mmol/L Normal 95-107 [facility] Comment on above: Performed By: #### C MP #### [facility] [address] [place] [address] CO2 [Moles/Vol] 28 mmol/L Normal 20-31 [facility] Comment on above: Performed By: #### C MP #### [facility] [address] [place] [address] Creatinine [Mass/Vol] 0.67 mg/dL Normal 0.50-0.90 [facility] Comment on above: Performed By: #### C MP #### [facility] [address] [place] [address] GFR/1.73 sq M predicted among blacks MDRD (S/P/Bld) [Vol rate/Area] mL/min/{1.73_m2} Normal >60 [facility] Comment on above: Result Comment: >60 mL/min/1.73m2 EGFR, calc. for ages 18 and older using the MDRD formula (not corrected for weight), is valid for stable renal function. Performed By: #### C MP #### [facility] [address] [place] [address] GFR/1.73 sq M.predicted MDRD (S/P/Bld) [Vol rate/Area] mL/min/{1.73_m2} Normal >60 [facility] Comment on above: Result Comment: >60 mL/min/1.73m2 EGFR, calc. for ages 18 and older using the MDRD formula (not corrected for weight), is valid for stable renal function. Performed By: #### C MP #### [facility] [address] [place] [address] Globulin (S) [Mass/Vol] 2.4 g/dL Normal 2.3-3.5 [facility] Comment on above: Performed By: #### C MP #### [facility] [address] [place] [address] Glucose [Mass/Vol] 189 mg/dL Critically high 70-99 M [facility] Comment on above: Performed By: #### C MP #### [facility] [address] [place] [address] Potassium [Moles/Vol] 4.2 mmol/L Normal 3.4-4.9 [facility] Comment on above: Result Comment: Spec imen hemolysis has exceeded the interference as defined by Shikha. Value may be falsely increased. Suggest recollection if clinically indicated. Performed By: #### C MP #### [facility] [address] [place] [address] Protein [Mass/Vol] 6.3 g/dL Normal 6.3-8.0 [facility] Comment on above: Performed By: #### C MP #### [facility] [address] [place] [address] Sodium [Moles/Vol] 140 mmol/L Normal 135-144 [facility] Comment on above: Performed By: #### C MP #### [facility] [address] [place] [address] Urea nitrogen [Mass/Vol] 17 mg/dL Normal 6-20 [facility] Comment on above: Performed By: #### C MP #### [facility] [address] [place] [address] Albumin [Mass/Vol] 3.9 g/dL 3.5 - 4.6 g/dL [place] ALP [Catalytic activity/Vol] 76 U/L 40 - 130 U/L [place] ALT [Catalytic activity/Vol] 22 U/L 0 - 33 U/L [place] Comment on above: Specimen hemolysis h as exceeded the interference as defined by Shikha. Result may be affected. Suggest recollection if clinically indicated. Anion gap [Moles/Vol] 9 mmol/L [place] AST [Catalytic activity/Vol] 18 U/L 0 - 35 U/L [place] Comment on above: Specimen hemolysis h as exceeded the interference as defined by Shikha. Value may be falsely increased. Suggest recollection if clinically indicated. Bilirubin Ql (U) 0.3 mg/dL 0.2 - 0.7 mg/dL [place] Calcium [Mass/Vol] 9.2 mg/dL 8.5 - 9.9 mg/dL [place] Chloride [Moles/Vol] 103 mmol/L [place] CO2 [Moles/Vol] 28 mmol/L [place] Creatinine [Mass/Vol] 0.67 mg/dL 0.5 - 0.9 mg/dL [place] GFR >60.0 >60 [place] Comment on above: >60 mL/min/1.73m2 EG FR, calc. for ages 18 and older using the MDRD formula (not corrected for weight), is valid for stable renal function. GFR Non- >60.0 >60 [place] Comment on above: >60 mL/min/1.73m2 EG FR, calc. for ages 18 and older using the MDRD formula (not corrected for weight), is valid for stable renal function. Globulin (S) [Mass/Vol] 2.4 g/dL 2.3 - 3.5 g/dL [place] Glucose [Mass/Vol] 189 mg/dL High 70 - 99 mg/dL [place] Interpretation and review of laboratory results Abnormal [place] Potassium [Moles/Vol] 4.2 mmol/L [place] Comment on above: Specimen hemolysis h as exceeded the interference as defined by Shikha. Value may be falsely increased. Suggest recollection if clinically indicated. Protein [Mass/Vol] 6.3 g/dL 6.3 - 8 g/dL [place] Sodium [Moles/Vol] 140 mmol/L [place] Urea nitrogen [Mass/Vol] 17 mg/dL 6 - 20 mg/dL [place] MRI LUMBAR SPINE WO CONTRAST on [...] Nando Dixon MD 09/10/[address] [facility] Rory, [facility] Incoming Radiant Results From [employer] - 09/10/2020 4:27 PM EST STUDY IS [...] superior facet joint spurring and/or ligamentous thickening. [place] STUDY IS REVIEWED WITH THE REFERRING [...] superior facet joint spurring and/or ligamentous thickening. [place] Partial Thromboplastin Timeo n 09-10-2020 aPTT Coag (Bld) [Time] 30.5 s Normal 24.4-36.8 [facility] Comment on above: Result Comment: Effe ctive 07/25/2020: Heparin Therapeutic Range: 64.0 ? 98.0 seconds. Performed By: #### P TT #### [facility] [address] [facility] [address] [address] Prothrombin Timeon 0 INR Coag (PPP) [Relative time] 1.1 {INR} Normal [facility] Comment on above: Performed By: #### P T #### [facility] [address] [address] PT Coag (PPP) [Time] 13.9 s Normal 12.3-14.9 [facility] Comment on above: Performed By: #### P T #### [facility] [address] [facility] [address] [address] Protime-INRon 09-10-2020 INR Coag (PPP) [Relative time] 1.1 {INR} [place], [place] PT Coag (PPP) [Time] 13.9 s [place] XR CHEST PORTABLEon 09-10-20 20 XR CHEST PORTABLE EXAMINATION: CHEST PORTABLE VIEW CLINICAL HISTORY: Back pain COMPARISONS: None FINDINGS: Single views of the chest is submitted. The cardiac silhouette is enlarged. Pulmonary vascular unremarkable. Right sided trachea. No focal infiltrates. No Pneumothoraces. IMPRESSION: NO ACUTE ACTIVE CARDIOPULMONARY PROCESS Interpreted by: Phillip Corral MD Signed by: Phillip Corral MD 09/11/[address] [facility] XR LUMBAR SPINE (MIN 4 VIEWS )on [...] Phillip Corral MD 09/11/[address] [facility] Vital Signs Date Time Vital Sign Value Performing Clinician Facility 08-25-2024 09:37-0500 Diastolic blood pressure 92 mm[Hg] Mela Zuletaleilani [employer] Work Phone: [facility] 08-25-2024 09:37-0500 Systolic blood pressure 146 mm[Hg] Mela Daily [employer] Work Phone: [facility] 08-25-2024 08:58-0500 Body height 162.6 cm Mela Daily [employer] Work Phone: [facility] 08-25-2024 08:58-0500 Body mass index (BMI) [Ratio] 30.31 kg/m2 Mela Daily [employer] Work Phone: [facility] 08-25-2024 08:58-0500 Body temperature 98.49 [degF] Mela Daily [employer] Work Phone: [facility] 08-25-2024 08:58-0500 Body weight 80.11 kg Mela Fanz [employer] Work Phone: [facility] 08-25-2024 08:58-0500 Heart rate 69 /min Mela Fanz [employer] Work Phone: [facility] 08-25-2024 08:58-0500 Respiratory rate 18 /min Mela Daily [employer] Work Phone: [facility] 12-05-2024 08:58-0500 SaO2% (BldA) [Mass fraction] 96 % Mela Fanz [employer] Work Phone: [facility] 05-26-2024 09:03-0400 Body height 162.6 cm Mela Fanz [employer] Work Phone: [facility] 05-26-2024 09:03-0400 Body mass index (BMI) [Ratio] 29.39 kg/m2 Mela Fanz [employer] Work Phone: [facility] 05-26-2024 09:03-0400 Body temperature 97.81 [degF] Mela Fnaz [employer] Work Phone: [facility] 05-26-2024 09:03-0400 Body weight 77.66 kg Mela Fanz [employer] Work Phone: [facility] 05-26-2024 09:03-0400 Diastolic blood pressure 84 mm[Hg] Mela Zuletaholz [employer] Work Phone: [facility] 05-26-2024 09:03-0400 Heart rate 72 /min Mela Merlynholz [employer] Work Phone: [facility] 05-26-2024 09:03-0400 Respiratory rate 18 /min Mela Zuletaholz [employer] Work Phone: [facility] 05-26-2024 09:03-0400 SaO2% (BldA) [Mass fraction] 97 % Mela Merlynholz [employer] Work Phone: [facility] 05-26-2024 09:03-0400 Systolic blood pressure 138 mm[Hg] Mela Markhholz [employer] Work Phone: [facility] 09-11-2020 17:30-0500 BP Diastolic 94 mm[Hg] [facility] [place] 09-11-2020 17:30-0500 BP Systolic 182 mm[Hg] [facility] [place] 09-11-2020 17:30-0500 Pulse (Heart Rate) 60 /min [facility] [place] 09-11-2020 17:30-0500 Pulse Oximetry 94 % [facility] [place] 09-11-2020 17:30-0500 Respiratory Rate 19 /min [facility] [place] 09-11-2020 16:50-0500 Body Temperature 98.01 [degF] [facility] [place] 09-10-2020 10:41-0500 BMI (Body Mass Index) 27.46 kg/m2 [facility] [place] 09-10-2020 10:41-0500 Body weight 72.58 kg [facility] [place] 09-10-2020 10:41-0500 Height 162.6 cm [place], [place] Encounters Encounter Date Encounter Type Care Provider Facility Start: 08-25-2024 End: 08-25-2024 Bamboo flowsheet Mela Daily [employer] Work Phone: [facility] Start: 08-25-2024 End: 08-25-2024 Bamboo flowsheet Mela Daily [employer] Work Phone: [facility] Start: 08-25-2024 End: 08-25-2024 Office outpatient visit 25 minutes Mela Daily [employer] Work Phone: [facility] Comment on above: Type 2 diabetes milana itus without complication, without long- term current use of insulin (CMS/HCC) (Primary Dx); Essential hypertension (CMS/HCC); Tobacco dependence; Colon cancer screening; Encounter for screening mammogram for malignant neoplasm of breast; Mixed hyperlipidemia (CMS/HCC); Obesity (BMI 30-39.9) Start: 08-02-2024 End: 08-02-2024 Refill Florinda Byers MA [facility] Comment on above: Mixed hyperlipidemia (CMS/HCC) Start: 07-21-2024 End: 07-21-2024 Refill Mela Daily [employer] Work Phone: [facility] Comment on above: Essential hypertensi on (CMS/HCC) Start: 05-26-2024 End: 05-26-2024 Bamboo flowsheet Mela Aichholz [employer] Work Phone: [facility] Start: 05-26-2024 End: 05-26-2024 Bamboo flowsheet Mela Aichholz [employer] Work Phone: [facility] Start: 05-26-2024 End: 05-26-2024 Office outpatient visit 25 minutes Mela Aichholz [employer] Work Phone: [facility] Comment on above: Essential hypertensi on (CMS/HCC) (Primary Dx); Type 2 diabetes mellitus without complication, without long-term current use of insulin (CMS/HCC); Overweight (BMI 25.0-29.9); Tobacco dependence Start: 05-26-2024 End: 05-26-2024 ambulatory MELA AICHHOLZ Not Available Start: 05-19-2024 End: 05-19-2024 Clinisync Result Encounter Mela Aichholz [employer] Work Phone: [facility] Unsolicited Start: 05-19-2024 End: 05-19-2024 Clinisync Result Encounter Mela Aichholz [employer] Work Phone: [facility] Unsolicited Start: 05-10-2024 End: 05-10-2024 Refill Mela Aichholz [employer] Work Phone: [facility] Comment on above: Essential hypertensi on (CMS/HCC) Start: 04-25-2024 End: 04-25-2024 ambulatory MELA AICHHOLZ Not Available Start: 02-18-2024 End: 02-18-2024 ambulatory MELA AICHHOLZ Not Available Start: 01-07-2024 End: 01-07-2024 ambulatory MELA AICHHOLZ Not Available Start: 11-30-2023 End: 11-30-2023 ambulatory TRACEE RUBY Not Available Start: 11-10-2023 End: 11-10-2023 ambulatory ZAIDA A PETITTI Not Available Start: 10-27-2023 Refill Mela Aichholz [employer] Work Phone: [facility] Comment on above: Mixed hyperlipidemia (CMS/HCC) (Primary Dx) Start: 10-05-2023 End: 10-05-2023 ambulatory MELA ZULETAOKSANAZ Not Available Start: 08-25-2023 End: 08-25-2023 ambulatory MELADebora ZULETAOKSANAZ Not Available Start: 09-05-2022 End: 09-06-[address] EVAN GILLESPIE Facility: Start: 05-30-2022 End: 05-31-2022 ambulatory Orlando Cole [place] Start: 05-30-2022 End: 05-30-2022 Patient encounter procedure Orlando Cole [facility] Start: 11-12-2021 Encounter for genera l adult medical examination without abnormal findings DR EVAN GILLESPIE [facility] Start: 11-11-2021 End: 11-12-[address] EVAN GILLESPIE Facility: Start: 11-11-2021 End: 11-12-2021 Encounter for general adult medical examination without abnormal findings DR EVAN GILLESPIE Facility:[facility] Start: 09-20-2021 End: 09-21-2021 ambulatory Cameron Singleton [place] Start: 09-10-2020 End: 09-11-2020 Evaluation and management of inpatient SR EVAN GILLESPIE [facility] Start: 09-10-2020 End: 09-11-2020 Evaluation and management of inpatient Magdaleno H. Santosh Work Phone: [facility] Comment on above: Right leg weakness ( Primary Dx); Protruded lumbar disc; Postoperative pain Procedures Date Procedure Procedure Detail Performing Clinician Start: 08-25-2024 Hemoglobin glycosylated a1c Mela Markhholz [employer] Work Phone: Start: 05-19-2024 MLR HEMOGLOBIN A1C Mela Aichholz [employer] Work Phone: Start: 09-30-2023 Mammography Emla Elda olz [employer] Work Phone: Start: 09-11-2020 Fluoroscopy during operation [...] w/o contrast material Celsa Alexander Work Phone: Start: 09-21-2012 Colonoscopy Mela Elda veloz [employer] Work Phone: Plan of Treatment Date Care Activity Detail Author Start: 06-02-2026 Glaucoma screening Diabetes: R etinopathy Screening [facility] Start: 11-28-2024 End: 11-28-2024 Patient encounter procedure 11/28/2024 8:35 AM EDT Office Visit [facility] [address] [place] [address] Zaida Flores MD [address] [place] [address] [facility] Start: 11-23-2024 Hemoglobin A1c measurement Diabetes: Hemoglobin A1C [facility] Start: 11-21-2024 Screening for malign ant neoplasm of cervix Cervical Cancer Screening [facility] Comment on above: Postponed from 06/01 (Patient Refused) Start: 11-21-2024 Screening for malign ant neoplasm of colon Colorectal Cancer Screening [facility] Comment on above: Postponed from 06/01 (Patient Refused) Start: 09-30-2024 Screening for malign ant neoplasm of breast Mammogram [facility] Start: 09-26-2024 Urine screening for protein Diabetes: Urine Protein Screening [facility] Start: 08-25-2024 End: 08-25-2025 CBC W Auto Differential panel - Blood CBC and differential Lab Routine Tobacco dependence Expected: 08/25/2024 (Approximate), Expires: 08/25/2025 [facility] Comment on above: Expected: 08/25/2024 (Approximate), Expires: 08/25/2025 Start: 08-25-2024 End: 08-25-2025 Comprehensive metabolic 2000 panel - Serum or Plasma Comprehensive metabolic panel Lab Routine Essential hypertension (CMS/HCC) Type 2 diabetes mellitus without complication, without long-term current use of insulin (CMS/HCC) Expected: 08/25/2024 (Approximate), Expires: 08/25/2025 [facility] Comment on above: Expected: 08/25/2024 (Approximate), Expires: 08/25/2025 Start: 08-25-2024 End: 08-25-2025 Lipid 1996 panel - Serum or Plasma Lipid panel Lab Routine Type 2 diabetes mellitus without complication, without long-term current use of insulin (CMS/HCC) Expected: 08/25/2024 (Approximate), Expires: 08/25/2025 [facility] Comment on above: Expected: 08/25/2024 (Approximate), Expires: 08/25/2025 Start: 08-25-2024 End: 10-26-2025 MG Breast - bilateral Screening Bilateral screening mammogram Imaging Routine Encounter for screening mammogram for malignant neoplasm of breast Expected: 08/25/2024 (Approximate), Expires: 10/26/2025 [facility] Work Phone: Comment on above: Expected: 08/25/2024 (Approximate), Expires: 10/26/2025 Start: 08-25-2024 End: 08-25-2025 Microalbumin/Creatinine panel in random Urine Microalbumin / creatinine, urine ratio Lab Routine Essential hypertension ([facility]/HCC) Type 2 diabetes mellitus without complication, without long-term current use of insulin ([facility]) Expected: 08/25/2024 (Approximate), Expires: 08/25/2025 [facility] Comment on above: Expected: 08/25/2024 (Approximate), Expires: 08/25/2025 Start: 08-25-2024 End: 08-25-2025 Urinalysis complete panel - Urine Urinalysis with reflex microscopic (clean catch) Lab Routine Essential hypertension ([facility]) Type 2 diabetes mellitus without complication, without long-term current use of insulin ([facility]) Tobacco dependence Expected: 08/25/2024 (Approximate), Expires: 08/25/2025 [facility] Comment on above: Expected: 08/25/2024 (Approximate), Expires: 08/25/2025 Start: 08-25-2024 End: 08-25-2024 [facility] Comment on above: Essential hypertensi on ([facility]) (Primary Dx); Type 2 diabetes mellitus without complication, without long-term current use of insulin ([facility]); Overweight (BMI 25.0-29.9); Tobacco dependence; Colon cancer screening; Encounter for screening mammogram for malignant neoplasm of breast; Mixed hyperlipidemia ([facility]) Start: 08-21-2024 Screening for malign ant neoplasm of cervix Cervical Cancer Screening [facility] Comment on above: Postponed from 06/01 (Other Medical Reasons) Start: 07-22-2024 Glaucoma screening Diabetes: R etinopathy Screening [facility] Comment on above: Postponed from 06/01 (Other Medical Reasons) Start: 07-21-2024 Influenza vaccination Influenza Vacc ine (#1) [facility] Comment on above: Postponed from 05/22 (Patient Does Not Have Time) Start: 05-26-2024 End: 05-26-2024 Patient encounter procedure [facility] Comment on above: Type 2 diabetes milana itus without complication, without long- term current use of insulin ([facility]) Start: 05-19-2024 Hemoglobin A1c measurement Diabetes: Hemoglobin A1C [facility] Start: 01-07-2024 End: 01-07-2024 Patient encounter procedure 01/07/2024 9:40 AM EDT Office Visit [facility] [address] [place] [address] Mela Daily NP [address] [place] [address] [facility] Start: 11-20-2023 Screening for malign ant neoplasm of cervix Cervical Cancer Screening [facility] Comment on above: Postponed from 06/01 (Other Medical Reasons) Start: 11-20-2023 Screening for malign ant neoplasm of colon Colorectal Cancer Screening [facility] Comment on above: Postponed from 06/01 (Other Medical Reasons) Start: 11-10-2023 End: 11-10-2023 Patient encounter procedure 11/10/2023 8:30 AM EST Office Visit [facility] [address] [place] [id number] Zaida Flores MD [address] [place] [address] [facility] Start: 09-21-2022 Screening for malign ant neoplasm of colon [facility] Start: 08-29-2022 Hemoglobin A1c measurement Diabetes: Hemoglobin A1C [facility] Start: 09-24-2020 End: 09-24-2020 Office Visit 09/24/2020 Office Visit Neurosurgery Magdaleno Rios MD [address] [facility], [address] [place] [address] [facility] Start: 05-22-2020 Influenza vaccination Flu vaccine (# 1) [place], [place] Start: 2011 Screening for malign ant neoplasm of breast Breast cancer screen [place], [place] Start: 2011 Screening for malign ant neoplasm of colon Colon cancer screen colonoscopy [place] Start: 2011 Shingles Vaccine (1 of 2) Shingles Vaccine (1 of 2) [place] Start: 2001 Diabetes screen Diabetes screen [place], [place] Start: 2001 Lipid panel Lipid screen [place], [place] Start: 1991 Screening for malign ant neoplasm of cervix [facility] Start: 1982 Screening for malign ant neoplasm of cervix [facility] Start: 1980 DTaP/Tdap/Td vaccine (1 - Tdap) DTaP/Tdap/Td vaccine (1 - Tdap) [place] Start: 1980 Urine screening for protein Diabetes: Urine Protein Screening [facility] Start: 1976 HIV screening HIV screen [place], [place] Start: 1971 Glaucoma screening Diabetes: R etinopathy Screening [facility] Start: 1961 Hepatitis C screening Hepatitis C sc reen [place], [place] Start: 1961 Screening for malign ant neoplasm of colon [facility] EKG 12 Lead - Chest Pain EKG 12 Lead - Chest Pain ECG STAT 09/10/2020 4:45 PM EST [place] Oxygen therapy [[facility] Data Set] Initiate Oxygen Therapy Protocol Respiratory Care Routine Daily until discontinued starting 09/10/2020 [place] Comment on above: Daily until disconti nued starting 09/10/2020 Surgical Pathology Surgical Path ology Lab Routine Release Upon Ordering for 1 Occurrences starting 09/11/2020 [place] Comment on above: Release Upon Orderin g for 1 Occurrences starting 09/11/2020 Immunizations Immunization Date Immunization Notes Care Provider Sanna colmenares 07-08-2024 influenza, injectabl e, madin griffin canine kidney, preservative free Mela Aichholz [employer] Work Phone: [facility] 09-19-2023 influenza, injectabl e, quadrivalent, preservative free Mela Aichholz [employer] Work Phone: [facility] 09-19-2023 influenza virus vacc ine, unspecified formulation Mela Aichholz [employer] Work Phone: [facility] 09-04-2021 influenza, injectabl e, quadrivalent, preservative free Mela Aichholz [employer] Work Phone: [facility] 11-06-2020 pneumococcal polysaccharide vaccine, 23 valent Mela Aichholz [employer] Work Phone: [facility] 06-28-2020 influenza, injectabl e, quadrivalent, preservative free Mela Aichholz [employer] Work Phone: [facility] 08-31-2018 Influenza, injectabl e, Madin [place] Canine Kidney, preservative free, quadrivalent Mela Aichholz [employer] Work Phone: [facility] Payers Date Payer Category Payer [facility] [id number] 2015 Unknown [facility] 040 2015-Present [phone] [place], [place] [id number] 1961 Unknown [id number] [id number]. 2.182 1961 Unknown [id number] [id number]. 2.727 1961 Unknown [id number] [id number]. 2.727 1961 Unknown [id number] 2.16.840.1.964191.3.579. 2.593 1961 Unknown [id number] 2.16.840.1.779219.3.579. 2.593 1961 Unknown [id number] [id number]. 2.1259 1961 Unknown [id number] [id number]. 2.1259 1961 Unknown [id number] 2.16.840.1.952409.3.579. 2.9 1961 Unknown [id number] 2.16.840.1.444265.3.579. 2.1259 1961 Unknown [id number] 2.16.840.1.294856.3.579. 2.1259 1961 Unknown [id number] 2.16.840.1.029720.3.579. 2.1259 1961 Unknown [id number] [id number]. 2.1259 1961 Unknown [id number] [id number]. 2.1259 1959 Unknown [id number] Social History Date Type Detail Facility Start: 09-11-2020 End: 01-07-2024 Tobacco smoking status NHIS Former smoker [facility] End: 09-21-2022 History of tobacco use Cigarette Smoker [place] Start: 09-11-2020 End: 08-25-2023 Cigarettes smoked current (pack per day) - Reported [facility] Start: 09-11-2020 Tobacco use and exposure Never used [place] Start: 09-11-2020 Alcohol intake Lifetime non-d shobha (finding) [place] Start: 09-10-2020 History SDOH Alcohol Frequency 1 [place] Start: 1960 Sex Assigned At Not on file M [place] Exposure to SARS-CoV -2 (event) Not sure [place] Tobacco smoking status No Smokin g Status Entered [facility] Start: 08-25-2023 End: 11-30-2023 Sex Assigned At Female [facility] Start: 08-25-2023 [facility] Start: 10-05-2023 End: 05-26-2024 Alcohol intake Current drinker of alcohol (finding) [facility] Within the last year , have you been afraid of your partner or ex-partner? No [facility] Do you belong to any clubs or organizations such as orthodoxy groups, [employer], [email or web address] or athletic groups, or school groups? Yes [...] Not at all [facility] (I/We) worried mis er (my/our) food would run out before (I/we) got money to buy more. Never true [facility] Start: 08-25-2023 Tobacco Comment 10-19 cigarettes/day [facility] Start: 08-25-2023 Alcohol Comment 1-2 drinks mon thly or less, caffeine 1-2 cups per day [facility] End: 09-21-2022 History of tobacco use Current smoker [facility] Medical Equipment Procedure Code Equipment Code Equipment Origin al Text Equipment Identifier Dates Daily Use as instructed [id number] Start: 01-07-2024 End: 01-06-2025 1 each Daily [id number] Start: 01-07-2024 End: 08-25-2024 Daily Use as instructed [id number] Start: 08-25-2024 End: 08-25-2025 1 each Daily [id number] Start: 08-25-2024 Clinical Notes 05-26-2024 to 08-25-2024 Mela Daily NP - 08/25/2024 9:33 AM NANDA SWEENEY - 08/25/2024 9:00 AM Dania Daily NP - 08/25/2024 9:00 AM Dania Daily NP - 08/25/2024 6:39 AM ESTPatient Instructions Note Date & Type Note Facility 08-25-2024 History of Presen t illness Narrative Associated Problem(s): Obesity (BMI 30-39.9) Discussed with patient their BMI (actual, verses recommended). We have also discussed lifestyle modifications: attempts to perform physical activity as chronic conditions allow, also to monitor dietary intake: increasing protein/fruits/veggies and lowering carb intake (unless contraindicated). Limit sodas, juices, and sugary drinks. Pt [facility] Pt also has not taken BP meds this morning yet. Images from the original note were not included. Jordy Dunne is a 64 y.o. female presents with chief complaint of Hypertension HPI: Hypertension This is a chronic problem. The current episode started more than 1 year ago. The problem is unchanged. The problem is controlled. Associated symptoms include neck pain and orthopnea. Pertinent negatives include no blurred vision, chest pain, headaches, palpitations, peripheral edema or shortness of breath. There are no associated agents to hypertension. Risk factors for coronary artery disease include diabetes mellitus, dyslipidemia and obesity. Past treatments include MONICA inhibitors. The current treatment provides significant improvement. There are no compliance problems. Diabetes She presents for her follow-up diabetic visit. She has type 2 diabetes mellitus. Her disease course has been improving. There are no hypoglycemic associated symptoms. Pertinent negatives for hypoglycemia include no dizziness, headaches, nervousness/anxiousness, seizures or tremors. Pertinent negatives for diabetes include no blurred vision, no chest pain, no polydipsia, no polyphagia, no polyuria, no visual change and no weakness. There are no hypoglycemic complications. Symptoms are stable. Pertinent negatives for diabetic complications include no nephropathy or peripheral neuropathy. Risk factors for coronary artery disease include dyslipidemia, diabetes mellitus, hypertension and obesity. Current diabetic treatment includes oral agent (dual therapy). She is following a generally healthy diet. Her overall blood glucose range is 110-130 mg/dl. An MONICA inhibitor/angiotensin II receptor todd is being taken. She does not see a auto emissions technician.Eye exam is current. SUBJECTIVE: MEDICATIONS: Current Outpatient Medications Medication Instructions aspirin 81 mg, Daily atorvastatin (LIPITOR) 20 mg, Oral, Daily dapagliflozin (FARXIGA) 5 mg, Oral, Daily glucose blood (True Metrix Blood Glucose Test) test strip Daily Use as instructed Lancets 30G misc 1 each, Does not apply, Daily lisinopril 30 mg, Oral, Daily metFORMIN (GLUCOPHAGE) 500 mg, Oral, 2 times daily with meals ondansetron ODT (ZOFRAN-ODT) 4 mg, Oral, Every 8 hours PRN propranolol LA (INDERAL LA) 60 mg, Oral, Daily ALLERGIES: Allergies Allergen Reactions Jardiance [Empagliflozin] Rash REVIEW OF SYMPTOMS: Review of Systems Constitutional: Negative for appetite change, chills and fever. HENT: Negative for congestion, ear pain and sore throat. Eyes: Negative for blurred vision, pain, discharge, redness and visual disturbance. Respiratory: Negative for cough, shortness of breath and wheezing. Cardiovascular: Positive for orthopnea. Negative for chest pain, palpitations and leg swelling. Gastrointestinal: Negative for abdominal pain, blood in stool, constipation, diarrhea, nausea and vomiting. Genitourinary: Negative for difficulty urinating, dysuria and frequency. Musculoskeletal: Positive for neck pain. Negative for arthralgias, back pain, joint swelling and myalgias. Skin: Negative for rash and wound. Neurological: Negative for dizziness, tremors, seizures, syncope, weakness and headaches. Psychiatric/Behavioral: Negative for behavioral problems, self-injury and suicidal ideas. The patient is not nervous/anxious. Hematological: Does not bruise/bleed easily. Endocrine: Negative for polydipsia, polyphagia and polyuria. Allergic/Immunologic: Negative for environmental allergies and food allergies. PAST MEDICAL HISTORY Past Medical History: Diagnosis Date Arthritis Carpal tunnel syndrome on both sides Colonic polyp 2013 Diabetes (CMS/HCC) Diabetes mellitus (CMS/HCC) Fibroids 2009 Hemorrhoids 2013 High cholesterol (CMS/HCC) Hypertension (CMS/HCC) Obesity (BMI 30-39.9) 08/25/2023 Past Surgical History: Procedure Laterality Date COLONOSCOPY W/ BIOPSIES 2012 Colonic polyps, Hemorrhoids DILATION AND CURETTAGE 2002 HYSTERECTOMY Procedure:supracx. hysterectomy;Disease:fibroids SHOULDER ARTHROSCOPY 06/27/2022 L shoulder scope- [facility] SPINE SURGERY TRIGGER FINGER RELEASE TUBAL LIGATION family history includes Coronary artery disease in her father; Stroke in her son. OBJECTIVE: Visit Vitals BP (!) 146/92 (BP Location: Left arm, Patient Position: Sitting) Pulse 69 Temp 98.5 F (Temporal) Resp 18 Ht 5' 4 Wt 176 lb 9.6 oz SpO2 96% BMI 30.31 kg/m Smoking Status Former BSA 1.9 m Physical Exam Vitals and nursing note reviewed. Constitutional: General: She is not in acute distress. Appearance: Normal appearance. HENT: Head: Normocephalic and atraumatic. Right Ear: External ear normal. Left Ear: External ear normal. Nose: Nose normal. Mouth/Throat: Mouth: Mucous membranes are moist. Eyes: Extraocular Movements: Extraocular movements intact. Conjunctiva/sclera: Conjunctivae normal. Neck: Vascular: No carotid bruit. Cardiovascular: Rate and Rhythm: Normal rate and regular rhythm. Pulses: Normal pulses. Heart sounds: Normal heart sounds. Pulmonary: Effort: Pulmonary effort is normal. Breath sounds: Normal breath sounds. No wheezing or rales. Abdominal: General: Bowel sounds are normal. There is no distension. Palpations: Abdomen is soft. There is no mass. Tenderness: There is no abdominal tenderness. Musculoskeletal: General: Normal range of motion. Cervical back: Normal range of motion and neck supple. Right lower leg: No edema. Left lower leg: No edema. Lymphadenopathy: Cervical: No cervical adenopathy. Skin: General: Skin is warm and dry. Capillary Refill: Capillary refill takes 2 to 3 seconds. Findings: No rash. Neurological: General: No focal deficit present. Mental Status: She is alert and oriented to person, place, and time. Psychiatric: Mood and Affect: Mood normal. Behavior: Behavior normal. Thought Content: Thought content normal. Judgment: Judgment normal. ASSESSMENT AND PLAN: Follow up in about 3 months (around 11/23/2024). Problem List Items Addressed This Visit Type 2 diabetes mellitus without complication, without long-term current use of insulin ([facility]) - Primary Check blood sugars daily, notify if <70 or >200. Take medications (pills or insulin) as directed. Monitor for s/s of hypoglycemia (sweaty, dizziness, nausea, vomiting, or shakiness). Watch for increase in thirst, urination, or appetite. Inspect feet frequently monitoring for open wounds , and also recommend yearly eye exam. Pt should attempt to remain as physically active as chronic conditions allow, as well as trying to follow a diet low in carbohydrates, and simple sugars. Current meds: asa, statin, metformin and farxiga A1c 6.1% Relevant Medications dapagliflozin (Farxiga) 5 MG glucose blood (True Metrix Blood Glucose Test) test strip Lancets 30G misc metFORMIN (Glucophage) 500 MG tablet Other Relevant Orders POCT glycosylated hemoglobin (Hb A1C) docked device (Completed) Comprehensive metabolic panel Lipid panel Microalbumin / creatinine, urine ratio Urinalysis with reflex microscopic (clean catch) Essential hypertension (CMS/HCC) Please check blood pressure daily and record DASH diet Limit caffeine Take medication as directed Contact office if chest pain, pressure, dizziness, shortness of breath, swelling legs Recommend slow position changes Current meds: lisinopril and propranolol, did not take yet this morning Relevant Medications lisinopril 30 MG tablet propranolol LA (Inderal LA) 60 MG 24 hr capsule Other Relevant Orders Comprehensive metabolic panel Microalbumin / creatinine, urine ratio Urinalysis with reflex microscopic (clean catch) Obesity (BMI 30-39.9) Discussed with patient their BMI (actual, verses recommended). We have also discussed lifestyle modifications: attempts to perform physical activity as chronic conditions allow, also to monitor dietary intake: increasing protein/fruits/veggies and lowering carb intake (unless contraindicated). Limit sodas, juices, and sugary drinks. Mixed hyperlipidemia (CMS/HCC) Is on atorvastatin Check labs yearly and prn dose changes Relevant Medications atorvastatin (Lipitor) 20 MG tablet Colon cancer screening Was referred to dr beltran, to date no scope completed Encourage pt to get this scheduled Overweight (BMI 25.0-29.9) Discussed with patient their BMI (actual, verses recommended). We have also discussed lifestyle modifications: attempts to perform physical activity as chronic conditions allow, also to monitor dietary intake: increasing protein/fruits/veggies and lowering carb intake (unless contraindicated). Limit sodas, juices, and sugary drinks. . Tobacco dependence The patient has been advised of the risks of continued smoking: stroke, NV, all forms of cancer, lung disease, and . Options for quitting smoking include: cold turkey, hypnosis, acupuncture, nicotine replacement meds (gum, lozenges, and patches), Buproprion, and Varenicline. At this time pt is encouraged to evaluate their goals for wanting to quit smoking, and reach out to provider when ready to start this process Relevant Orders CBC and differential Urinalysis with reflex microscopic (clean catch) Encounter for screening mammogram for malignant neoplasm of breast Due 09/2024 Will order Relevant Orders Bilateral screening mammogram Associated Problem(s): Colon cancer screening Was referred to dr beltran, to date no scope completed Encourage pt to get this scheduled Associated Problem(s): Mixed hyperlipidemia (CMS/HCC) Is on atorvastatin Check labs yearly and prn dose changes Associated Problem(s): Encounter for screening mammogram for malignant neoplasm of breast Due 09/2024 Will order Associated Problem(s): Tobacco dependence 1/2 ppd The patient has been advised of the risks of continued smoking: stroke, NV, all forms of cancer, lung disease, and . Options for quitting smoking include: cold turkey, hypnosis, acupuncture, nicotine replacement meds (gum, lozenges, and patches), Buproprion, and Varenicline. At this time pt is encouraged to evaluate their goals for wanting to quit smoking, and reach out to provider when ready to start this process Associated Problem(s): Overweight (BMI 25.0-29.9) Discussed with patient their BMI (actual, verses recommended). We have also discussed lifestyle modifications: attempts to perform physical activity as chronic conditions allow, also to monitor dietary intake: increasing protein/fruits/veggies and lowering carb intake (unless contraindicated). Limit sodas, juices, and sugary drinks. . Associated Problem(s): Type 2 diabetes mellitus without complication, without long-term current use of insulin ([facility]) Check blood sugars daily, notify if <70 or >200. Take medications (pills or insulin) as directed. Monitor for s/s of hypoglycemia (sweaty, dizziness, nausea, vomiting, or shakiness). Watch for increase in thirst, urination, or appetite. Inspect feet frequently monitoring for open wounds , and also recommend yearly eye exam. Pt should attempt to remain as physically active as chronic conditions allow, as well as trying to follow a diet low in carbohydrates, and simple sugars. Current meds: asa, statin, metformin and farxiga A1c 6.1% Associated Problem(s): Essential hypertension ([facility]) Please check blood pressure daily and record DASH diet Limit caffeine Take medication as directed Contact office if chest pain, pressure, dizziness, shortness of breath, swelling legs Recommend slow position changes Current meds: lisinopril and propranolol, did not take yet this morning documented in this encounter [facility] 08-25-2024 Instructions Mela Daily NP - 08/25/2024 9:00 AM EST A1c 6.1% great job, After 09/21/24: mammogram in September I will fax order to [facility] November appt we will talk about PAP smear and Colon cancer screening Also order of fasting labs documented in this encounter [facility] 05-26-2024 History of Presen t illness Narrative Associated Problem(s): Tobacco dependence The patient has been advised of the risks of continued smoking: stroke, NV, all forms of cancer, lung disease, and . Options for quitting smoking include: cold turkey, hypnosis, acupuncture, nicotine replacement meds (gum, lozenges, and patches), Buproprion, and Varenicline. At this time pt is encouraged to evaluate their goals for wanting to quit smoking, and reach out to provider when ready to start this process Associated Problem(s): Type 2 diabetes mellitus without complication, without long-term current use of insulin (CMS/HCC) Metformin at 500mg BID A1c is at 6.5% However sugar ranges in the 160-180's Will trial a sample of farxiga at 5mg daily #3 samples: Lot [id number], exp 01/18/26 Non specific rash from Jardiance, unsure if this is unique to this, or class related. Will trial Farxiga, if rash returns stop immediately. If tolerating ok, then can strip picker script Associated Problem(s): Essential hypertension (CMS/HCC) Will continue dose of lisinopril at 30mg daily Fu on blood pressure in 3 months Continue with steady weight loss Fast bs was 192 Pt states her sugars have been 170s,180s, and 190s Pt has an eye appt on the Images from the original note were not included. Jordy Dunne is a 63 y.o. female presents with chief complaint of No chief complaint on file. HPI: Diabetes She presents for her follow-up diabetic visit. She has type 2 diabetes mellitus. Her disease course has been stable. There are no hypoglycemic associated symptoms. Pertinent negatives for hypoglycemia include no dizziness, headaches, nervousness/anxiousness, seizures or tremors. Pertinent negatives for diabetes include no chest pain, no fatigue, no foot paresthesias, no polydipsia, no polyphagia, no polyuria, no visual change and no weakness. There are no hypoglycemic complications. Symptoms are stable. There are no diabetic complications. Risk factors for coronary artery disease include diabetes mellitus. Hypertension This is a chronic problem. The current episode started more than 1 year ago. The problem has been gradually improving since onset. The problem is controlled. Pertinent negatives include no chest pain, headaches, palpitations or shortness of breath. There are no associated agents to hypertension. Risk factors for coronary artery disease include diabetes mellitus, obesity and smoking/tobacco exposure. Past treatments include MONICA inhibitors. The current treatment provides significant improvement. There are no compliance problems. SUBJECTIVE: MEDICATIONS: Current Outpatient Medications Medication Instructions aspirin 81 mg, Oral, Daily atorvastatin (LIPITOR) 20 mg, Oral, Daily dapagliflozin (FARXIGA) 5 mg, Oral, Daily glucose blood (True Metrix Blood Glucose Test) test strip Daily Use as instructed Lancets 30G misc 1 each, Does not apply, Daily lisinopril 30 mg, Oral, Daily metFORMIN (GLUCOPHAGE) 500 mg, Oral, 2 times daily with meals ondansetron ODT (ZOFRAN-ODT) 4 mg, Oral, Every 8 hours PRN propranolol LA (INDERAL LA) 60 mg, Oral, Daily ALLERGIES: Allergies Allergen Reactions Jardiance [Empagliflozin] Rash REVIEW OF SYMPTOMS: Review of Systems Constitutional: Negative for appetite change, chills, fatigue and fever. HENT: Negative for congestion, ear pain and sore throat. Eyes: Negative for pain, discharge, redness and visual disturbance. Respiratory: Negative for cough, shortness of breath and wheezing. Cardiovascular: Negative for chest pain, palpitations and leg swelling. Gastrointestinal: Negative for abdominal pain, blood in stool, constipation, diarrhea, nausea and vomiting. Genitourinary: Negative for difficulty urinating, dysuria and frequency. Musculoskeletal: Negative for arthralgias, back pain, joint swelling and myalgias. Skin: Negative for rash and wound. Neurological: Negative for dizziness, tremors, seizures, syncope, weakness and headaches. Psychiatric/Behavioral: Negative for behavioral problems, self-injury and suicidal ideas. The patient is not nervous/anxious. Hematological: Does not bruise/bleed easily. Endocrine: Negative for polydipsia, polyphagia and polyuria. Allergic/Immunologic: Negative for environmental allergies and food allergies. PAST MEDICAL HISTORY Past Medical History: Diagnosis Date Arthritis Carpal tunnel syndrome on both sides Colonic polyp 2012 Diabetes ([facility]) Diabetes mellitus ([facility]) Fibroids 2009 Hemorrhoids 2012 High cholesterol ([facility]) Hypertension ([facility]) Obesity (BMI 30-39.9) 08/25/2023 Past Surgical History: Procedure Laterality Date COLONOSCOPY W/ BIOPSIES 2012 Colonic polyps, Hemorrhoids DILATION AND CURETTAGE 2002 HYSTERECTOMY Procedure:supracx. hysterectomy;Disease:fibroids SHOULDER ARTHROSCOPY 06/27/2022 L shoulder scope- [facility] SPINE SURGERY TRIGGER FINGER RELEASE TUBAL LIGATION family history includes Coronary artery disease in her father; Stroke in her son. OBJECTIVE: Visit Vitals BP 138/84 (BP Location: Left arm, Patient Position: Sitting, BP Cuff Size: Adult long) Pulse 72 Temp 97.8 F (Temporal) Resp 18 Ht 5' 4 Wt 171 lb 3.2 oz SpO2 97% BMI 29.39 kg/m Smoking Status Former BSA 1.87 m Physical Exam Vitals and nursing note reviewed. Constitutional: General: She is not in acute distress. Appearance: Normal appearance. HENT: Head: Normocephalic and atraumatic. Right Ear: External ear normal. Left Ear: External ear normal. Nose: Nose normal. Mouth/Throat: Mouth: Mucous membranes are moist. Eyes: Extraocular Movements: Extraocular movements intact. Conjunctiva/sclera: Conjunctivae normal. Cardiovascular: Rate and Rhythm: Normal rate and regular rhythm. Pulses: Normal pulses. Heart sounds: Normal heart sounds. Pulmonary: Effort: Pulmonary effort is normal. Breath sounds: Normal breath sounds. Abdominal: General: Bowel sounds are normal. There is no distension. Palpations: Abdomen is soft. There is no mass. Tenderness: There is no abdominal tenderness. Musculoskeletal: General: Normal range of motion. Cervical back: Normal range of motion and neck supple. Skin: General: Skin is warm and dry. Capillary Refill: Capillary refill takes 2 to 3 seconds. Findings: No rash. Neurological: General: No focal deficit present. Mental Status: She is alert and oriented to person, place, and time. Psychiatric: Mood and Affect: Mood normal. Behavior: Behavior normal. Thought Content: Thought content normal. Judgment: Judgment normal. ASSESSMENT AND PLAN: No follow-ups on file. Problem List Items Addressed This Visit Type 2 diabetes mellitus without complication, without long-term current use of insulin (CMS/HCC) Metformin at 500mg BID A1c is at 6.5% However sugar ranges in the 160-180's Will trial a sample of farxiga at 5mg daily #3 samples: Lot [id number], exp 01/18/26 Non specific rash from Jardiance, unsure if this is unique to this, or class related. Will trial Farxiga, if rash returns stop immediately. If tolerating ok, then can strip picker script Relevant Medications metFORMIN (Glucophage) 500 MG tablet dapagliflozin (Farxiga) 5 MG Essential hypertension (CMS/HCC) - Primary Will continue dose of lisinopril at 30mg daily Fu on blood pressure in 3 months Continue with steady weight loss Overweight (BMI 25.0-29.9) Tobacco dependence The patient has been advised of the risks of continued smoking: stroke, [place], all forms of cancer, lung disease, and . Options for quitting smoking include: cold turkey, hypnosis, acupuncture, nicotine replacement meds (gum, lozenges, and patches), Buproprion, and Varenicline. At this time pt is encouraged to evaluate their goals for wanting to quit smoking, and reach out to provider when ready to start this process documented in this encounter [facility] Healthcare Evaluation + Plan note No data available for this section [facility] Evaluation note Diagnosis Mixed hyperlipidemia (CMS/HCC)- Primary Mixed hyperlipidemia documented in this encounter [facility] HealthcareEvaluation note* Diagnosis Type 2 diabetes mellitus without complication, without long-term current use of insulin (CMS/HCC)- Primary Essential hypertension (CMS/HCC) Unspecified essential hypertension Obesity (BMI 30-39.9) Breast cancer screening by mammogram Type 2 diabetes mellitus without complication, without long-term current use of insulin (CMS/HCC)- Primary Essential hypertension (CMS/HCC) Unspecified essential hypertension Microalbuminuria Proteinuria Obesity (BMI 30-39.9) Mixed hyperlipidemia (CMS/HCC) Mixed hyperlipidemia Obesity (BMI 30-39.9)- Primary Mixed hyperlipidemia (CMS/HCC) Mixed hyperlipidemia Type 2 diabetes mellitus without complication, without long-term current use of insulin (CMS/HCC) Essential hypertension (CMS/HCC) Unspecified essential hypertension Type 2 diabetes mellitus without complication, without long-term current use of insulin (CMS/HCC)- Primary Essential hypertension (CMS/HCC) Unspecified essential hypertension Obesity (BMI 30-39.9) Mixed hyperlipidemia (CMS/HCC) Mixed hyperlipidemia Essential hypertension (CMS/HCC)- Primary Unspecified essential hypertension Type 2 diabetes mellitus without complication, without long-term current use of insulin (CMS/HCC) Obesity (BMI 30-39.9) Colon cancer screening Special screening for malignant neoplasms, colon Essential hypertension (CMS/HCC)- Primary Unspecified essential hypertension Type 2 diabetes mellitus without complication, without long-term current use of insulin (CMS/HCC) Overweight (BMI 25.0-29.9) Overweight Tobacco dependence Tobacco use disorder Essential hypertension (CMS/HCC) Unspecified essential hypertension documented in this encounter [facility] HealthcareEvaluation note* Diagnosis Type 2 diabetes mellitus without complication, without long-term current use of insulin (CMS/HCC)- Primary Essential hypertension (CMS/HCC) Unspecified essential hypertension Obesity (BMI 30-39.9) Breast cancer screening by mammogram Type 2 diabetes mellitus without complication, without long-term current use of insulin (CMS/HCC)- Primary Essential hypertension (CMS/HCC) Unspecified essential hypertension Microalbuminuria Proteinuria Obesity (BMI 30-39.9) Mixed hyperlipidemia (CMS/HCC) Mixed hyperlipidemia Obesity (BMI 30-39.9)- Primary Mixed hyperlipidemia (CMS/HCC) Mixed hyperlipidemia Type 2 diabetes mellitus without complication, without long-term current use of insulin (CMS/HCC) Essential hypertension (CMS/HCC) Unspecified essential hypertension Type 2 diabetes mellitus without complication, without long-term current use of insulin (CMS/HCC)- Primary Essential hypertension (CMS/HCC) Unspecified essential hypertension Obesity (BMI 30-39.9) Mixed hyperlipidemia (CMS/HCC) Mixed hyperlipidemia Essential hypertension (CMS/HCC)- Primary Unspecified essential hypertension Type 2 diabetes mellitus without complication, without long-term current use of insulin (CMS/HCC) Obesity (BMI 30-39.9) Colon cancer screening Special screening for malignant neoplasms, colon Essential hypertension (CMS/HCC)- Primary Unspecified essential hypertension Type 2 diabetes mellitus without complication, without long-term current use of insulin (CMS/HCC) Overweight (BMI 25.0-29.9) Overweight Tobacco dependence Tobacco use disorder Mixed hyperlipidemia (CMS/HCC) Mixed hyperlipidemia documented in this encounter [facility] note* Diagnosis Type 2 diabetes mellitus without complication, without long-term current use of insulin (CMS/HCC)- Primary Essential hypertension (CMS/HCC) Unspecified essential hypertension Obesity (BMI 30-39.9) Breast cancer screening by mammogram Type 2 diabetes mellitus without complication, without long-term current use of insulin (CMS/HCC)- Primary Essential hypertension (CMS/HCC) Unspecified essential hypertension Microalbuminuria Proteinuria Obesity (BMI 30-39.9) Mixed hyperlipidemia (CMS/HCC) Mixed hyperlipidemia Obesity (BMI 30-39.9)- Primary Mixed hyperlipidemia (CMS/HCC) Mixed hyperlipidemia Type 2 diabetes mellitus without complication, without long-term current use of insulin (CMS/HCC) Essential hypertension (CMS/HCC) Unspecified essential hypertension Type 2 diabetes mellitus without complication, without long-term current use of insulin (CMS/HCC)- Primary Essential hypertension (CMS/HCC) Unspecified essential hypertension Obesity (BMI 30-39.9) Mixed hyperlipidemia (CMS/HCC) Mixed hyperlipidemia Essential hypertension (CMS/HCC)- Primary Unspecified essential hypertension Type 2 diabetes mellitus without complication, without long-term current use of insulin (CMS/HCC) Obesity (BMI 30-39.9) Colon cancer screening Special screening for malignant neoplasms, colon Essential hypertension (CMS/HCC)- Primary Unspecified essential hypertension Type 2 diabetes mellitus without complication, without long-term current use of insulin (CMS/HCC) Overweight (BMI 25.0-29.9) Overweight Tobacco dependence Tobacco use disorder Type 2 diabetes mellitus without complication, without long-term current use of insulin (CMS/HCC)- Primary Essential hypertension (CMS/HCC) Unspecified essential hypertension Tobacco dependence Tobacco use disorder Colon cancer screening Special screening for malignant neoplasms, colon Encounter for screening mammogram for malignant neoplasm of breast Mixed hyperlipidemia (CMS/HCC) Mixed hyperlipidemia Obesity (BMI 30-39.9) documented in this encounter [facility] HealthcareEvaluation note* Diagnosis Essential hypertension (CMS/HCC) Unspecified essential hypertension documented in this encounter [facility] HealthcareEvaluation note* Diagnosis Essential hypertension (CMS/HCC)- Primary Unspecified essential hypertension Type 2 diabetes mellitus without complication, without long-term current use of insulin ([facility]) Overweight (BMI 25.0-29.9) Overweight Tobacco dependence Tobacco use disorder [facility] No data available for this section [facility] No data available for this section [facility] Discharge Instructions * Instructions* Magdaleno [...] your physician 11) Call your doctor at [phone] for an appointment (or follow up as [...] call OFFICE. The 24- hour phone is [phone]) If you are unable to contact [...] musculoskeletal symptoms referable to limbs Advance Directives Latest Code Status on File Code Status Date [...] Weakness of right leg Magdaleno Rios MD [address] [facility], [address] [place] [address] [facility] Reason Comments Med Refill Reason Onset Date Comments Med Refill 08/02/2024 Reason Comments Hypertension Ordered Prescriptions (unrec ognized section and content) [...] section and content) DATE CREATED AUTHOR [facility]13/2020 [facility] DATE CREATED AUTHOR AUTHOR'S ORGANIZ ATION 10/21/2021 [facility] dical Specialist DATE CREATED AUTHOR AUTHOR'S ORGANIZ ATION 06/02/2022 Quinn Efraín [facility] DATE CREATED AUTHOR AUTHOR'S ORGANIZ ATION 09/12/2022 [facility] DATE CREATED AUTHOR AUTHOR'S ORGANIZ ATION 05/27/2024 [facility] dical Specialists EPIC Care Team (unrecognized sect ion and content) Senior Clinical Research Scientist Relationship Specialty Start Date End Date Jose Powers MD PCP - General Family Medicine 08/18/23 Mela Daily NP [address] [place] [address] Nurse Practitioner Family Medicine 08/18/23 Senior Clinical Research Scientist Relationship Specialty Start Date End Date Jose Powers MD [address] [place] [address] PCP - General Family Medicine 08/18/23 Mela Daily NP [address] [place] [phone] PCP - [employer] 12/21/23 Mela Daily NP [address] [place] [phone] Nurse Practitioner Family Medicine 08/18/23 Senior Clinical Research Scientist Relationship Specialty Start Date End Date Jose Powers MD [address] [place] [phone] PCP - General Family Medicine 08/18/23 Mela Daily NP [address] [place] [phone] PCP - [employer] 12/21/23 Mela Daily NP [address] [place] [phone] Nurse Practitioner Family Medicine 08/18/23 Senior Clinical Research Scientist Relationship Specialty Start Date End Date Jose Powers MD [address] [place] [phone] PCP - General Family Medicine 08/18/23 Mela Daily NP [address] [place] [phone] PCP - [employer] 12/21/23 Mela Daily NP [address] [place] [phone] Nurse Practitioner Family Medicine 08/18/23 Senior Clinical Research Scientist Relationship Specialty Start Date End Date Jose Powers MD [address] [place] [address] PCP - General Family Medicine 08/18/23 Mela Daily NP [address] [place] [address] PCP - [employer] 12/21/23 Mela Daily NP [address] [place] [phone] Nurse Practitioner Family Medicine 08/18/23 Senior Clinical Research Scientist Relationship Specialty Start Date End Date Jose Powers MD [address] [place] [phone] PCP - General Family Medicine 08/18/23 Mela Daily NP [address] [place] [phone] PCP - [employer] 12/21/23 Mela Daily NP [address] [place] [phone] Nurse Practitioner Family Medicine 08/18/23 Senior Clinical Research Scientist Relationship Specialty Start Date End Date Jose Powers MD [address] [place] [address] PCP - General Family Medicine 08/18/23 Mela Daily NP [address] [place] [phone] [facility] Mela Daily NP [address] [place] [phone] Nurse Practitioner Family Medicine 08/18/23 Senior Clinical Research Scientist Relationship Specialty Start Date End Date Jose Powers MD [address] [place] [phone] PCP - [facility] Medicine 08/18/23 Mela Daily NP [address] [place] [phone] [facility] 12/21/23 Mela Daily NP [address] [place] [phone] Nurse Practitioner [facility] 08/18/23 FOR RECORDS PERTAINING TO PATIENTS WHO [...] BE BASED ON THE PRIMARY CLINICAL RECORDS. [facility]. provides no warranty or guarantee of the accuracy or completeness of information in this document.
== END 2024-10-07 09:24 | disposition home or self-care (01) ==
LOC: MAMMO 09:23
PROVIDERS: PCP Nurse Practitioner; Visit Provider Nurse Practitioner
DX: Z12.31 Encounter for screening mammogram for malignant neoplasm of breast (principal)
CPT/HCPCS: 77063; 77067

== ENCOUNTER 2024-12-12 08:25 | Outpatient (OUT) | payer BC, SELFPAY ==
--- OUTSIDE RECORDS SUMMARY | 2024-12-12 08:37 | XMS_ITS | CCD ---
Author Organization [facility] Inform ion Partnership [facility] Care Team Providers Care Photocomposition Keyboard Operator Name Role Phone House, Sr Evan Lu [...] Unavailable JOSE MIGUEL, DR MARADIAGA Admitting Unavailable HOUSE, DR MARADIAGA Primary Care Unavailable HOUSE, DR MARADIAGA Consulting Unavailable HOUSE, DR MARADIAGA Attending Unavailable HOUSE, DR MARADIAGA Primary Care Unavailable HOUSE, DR MARADIAGA Consulting Unavailable HOUSE, DR MARADIAGA Attending Unavailable HOUSE, DR MARADIAGA Admitting Unavailable JOSELITO, DR JOSH Saenz Consulting Unavailable Priya GONZALES, Jose Primary Care Provider Aichholwilly ENGINEERING PROGRAM MANAGER, Mela Unavailable Jose Powers MD Primary Care Provider [phone] A[employer]holz ENGINEERING PROGRAM MANAGER, Mela Unavailable Aichholz ENGINEERING PROGRAM MANAGER, Mela Unavailable ZAIDA FLORES Attending Unavailable AICHHOLZ, MELA Attending Unavailable AICHHOLZ, MELA Attending Unavailable AICHHOLZ, MELA Attending Unavailable AICHHOLZ, MELA Attending Unavailable AICHHOLZ, MELA Attending Unavailable AICHHOLZ, MELA Attending Unavailable Allergies Allergy Classification Reported Allergen(s) Allergy [...] PRN, Muscle spasms, Starting Thu09/10/20 at 2045 dapagliflozin 5 mg oral tablet (9 sources) Sodium-Glucose Cotransporter 2 Inhibitor Start: 05-26-2024 End: 11-23-2024 take 1 tablet by mouth once daily dapagliflozin (Farxiga) 5 MG Indications: Type 2 diabetes mellitus without complication, without long-term current use of insulin (CMS/[facility]) Take 1 tablet (5 mg) by mouth [...] lisinopril 30 MG tablet Indications: Essential hypertension (CMS/HCC) Take 1 tablet (30 mg) by mouth [...] or vomiting 01/04/2024 Active polyethylene glycol 3350 75808 mg powder for oral solution (1 source) [...] daily 0 09/10/2020 Discontinued (Therapy completed) sennosides, chcf 8.6 mg oral tablet (1 source) Start: [...] Interpretation and review of laboratory results Abnormal [facility] - Hematology and Cell countson 08-25-2024 HbA1c (Bld) [Mass fraction] 6.10 % [facility] MLR HEMOGLOBIN A1Con 024 Glucose [Mass/Vol] 140 mg/dL [facility] HbA1c (Bld) [Mass fraction] 6.5 % High 4.5 - 6.2 % [facility] Comment on above: ADA RECOMMENDED LIMI T 4.0 - 6.0 ADA THERAPEUTIC TARGET < 7.0 ACTION SUGGESTED > 7.0 Interpretation and review of laboratory results Abnormal [facility] MG MAMM SCREEN 3D ANGELICA CADon 09-05-2022 MG MAMM SCREEN 3D ANGELICA CAD Patient: JORDY DUNEN Exam Date: 09/05/2022 : 1960 Gender:F Ordering : DR EVAN GILLESPIE D.O. Admission #: [id number] Family : Order #: [id number] CLICK HERE TO VIEW EXAM RADIOLOGY REPORT PROCEDURE: MAMMOGRAM SCREENING 3D BILATERAL CAD COMPARISON: MAMMO ANGELICA SCREEN, 07/08/2013. MAMMO ANGELICA SCREEN, 01/08/2009. INDICATIONS: Screening mammography Calculator Name NCI Breast Cancer Risk Assessment Tool 5 Year Breast Cancer Risk Not Reported. Lifetime Breast Cancer Risk Not Reported. Personal Breast Cancer No Personal Ovarian Cancer No Treatments None Family Cancers None LOCATION: [facility] BREAST COMPOSITION: Scattered areas fibroglandular density. FINDINGS: [...] M.D. on 09/08/2022 at 13:34 Normal [facility] Coding Summary.on 06-02-2022 Coding Summary. [id number] G h0bWw+PGhlYWQ+FD1IKZA aY91baIZquU1DC5nVZU6W COKTTGFHCB5JZQ6wpRS0D HjiD8NtynSb VutvkFNhLJ11BHx6UTV5b RsuPJognM9qhHUzC8u9Dr EwEL50mF54MCmdZJIxWqZ 3LjZpbjsgbWFy E9lmBqPqaMKpWnx+PHRhY mxlIHdpZHRoPScxMDAlJy UqeOmoTX3fRf1wZUJzOJB vbGxhcHNlOiBj t8xgPVLoWRawAD3uvPyxX 7EtxQO9JETrp9p4Gp06gH I+MOTgYXO8kMfqBXnob76 3QgKxd0zjOKL8 yACoSOnsMOC4M95qu7D8P EPcKFMqSSM2cGU5hJ9qnE ujvqljW2TqgIZnLbI9FXJ 7iJQzbJ4jfFpl xtfkdE7eJvv+A22SOR3SO ZXPWI2FMik4K9VuUmabrP I+EZ07RTRfLS62sYSnzZA mo2lojOx9OjFc IZUgEEM5eJctSVkwd0CoG IMkN40jkDBku4Y7LJBkxH xtwJRlWmUkgVP7bN5tFMa ptudab4pnmfuk Vdubp2gqjx68pU27C96aY NmcSQGbEEQ0BAMhYVAgwA xgrh3rkD0lWc2+LAwmz2q dg8yxwWb7QwFy LVMazlUyjSxpUHU3m2EuJ g07Q5QdyIpcm7VbXcs1hd 61kRPqt9E1jYO9PEkoFEK lxT0yMOczQnA1 CQJcCgEpmN04nDHaUTvfC d0rzNklzPozCT1cMPLwhs ysTGNobW7cGXKfjVTucGh xTX2oMYHxtqbw c959RoXzYZC0ZUPtoMHlF 6YvdE7rYaPgPQGrGBXrD6 RnlVGeVJrrG373ETzhXeB 5MNGuwsKjM3Pb UYEzrBjgMbW6n7F8Ff7Nf 3VtgubfUFQ6EJodSYP9Dr OzFhRkRhK3C6UjWje7FAO vvPdlPR8kE4Ke CFRxvatvqdcjqLR5KKKjS JUlwD85eSFbDJhnMh6yh6 U2k152EVOsMEDsgK29Ko1 udDogMTBwdCBU bK1digema1wxaquvCoIfF TUwOMn1VCf7SJWqaKsrVd VwVNN7YdI8XPG8jLNliV5 dhOsahzbexF3b Oyc+X63plY7jUBD6FMX5v dsaSDQzufMvDW02KV76X5 RyPjwvdGFibGU+PGRpdiB rpCswHG8kAaFx g3egx3EsTVjzY1NwPRZqM HnqBqx8NOHrQSY3uEE5tI 6nCWXiMQlvu0M5lVP0X3Z lpeMvdv6gd1zt XOFvHJkgO01tyTVgz2B0X NDcaMM2CUEkeTmgSdZadU 93Oyc+QICpdHdhn8LnKfc wv3enp7jvaLj7 UrIfXMWfndFxkWlsMFY6u 8NvUx88M33nRBsxXAByIK WbTQGhPDTnuAxmqd7viS7 wIi8+PGNvbCB3 tAP2jS2pQQNrPiZ4NYfoJ 399BaUhmMSsMxgpo8nze4 rerIv6LtArHQBxnzAwzXk pMTD7l8NrQv71 D83kCVfgQJFkGSMqIKNjJ OGrsHdhak7weB4uOo4+PC 3vy6hedk73lJ03mMT+PHR pMDL1fIhhNOaa BJFjvP9gSNljQsY9BADdL wVubJ02xVYhRUtiSi5ciY jokZttYV1wPWXexkflk63 5ZqXnd8nnNEKk nVAqHCslKHP8K33ia3T2S GHyLUYzKQW4pBC8mY5ttX lnbjogbGVmdDsgdmVydGl hQFgyIXlcM077 IHRvcDsnPlBhdGllbnQgT bIdWDo7P5PqQyt8LXYozG ckJE0quFUiSKghDt4uoKu ujQhxQI3hTXCb sspnu294CxYbl1yqYUZdf YXsZLoqFCS4S47ov1V5ZR AaYJElWZF4sSI4jE5lgYw nbjogbGVmdDsg eyYzjBivNWbwTYchF333V HRvcDsnPkJpcnRoIERhdG R3IU71RC74tQRtk1H7pNG 4D8LySKStdizc uocdoDC7CPJzUIOqhH25F z6kxNboMf2nUSGuRYG3XZ XheQTgG3UlbY1mWnMhUWZ uKHTzA3ZmeBAy RAmhX328TKyzReT9HGAvx iTaC7HpFVEetVblCnL6t7 Q2Kv0OJ2S3ZH16OV84qOU jm4L1aGZ7H5Yw OTYaydnewcioqSQ7GQOlP LNmvJ37Ej5tvAcyLs6zUM LmOPK3EVVavFHrW4HpoB6 yOiAjMDAwMDAw P8OxrFIvYTqmQ124ZWwtH qR6NGNqdlUcT7RwAGOetH nuWcN5o3T9Lr7QNDu8WB7 0EE24yZQot0N5 pHX8T8CdKVIdvuhijpbht CP5GAZzQLUmqL62Sk4igV nwCc1bZIOzBAO4KDRbyHC jX1NsbR2rXuFy UQQtUCMhJ1VhnNCqCZdeT 228TLihUcI6VSNoqhPpJ5 EjRRJxgOxjQhT4w4M6Kx7 RYILmEL75ZZK8 aZV5YP97MB56V7KjCqjnm GFibGU+PHRhYmxlIHdpZH RoPScxMDAlJyBzdHlsZT0 lHe7oIFYgRZFp mRntjCQkZeAdj7inPGMkN KvaXJ1ngAdwI8VuqSE1EX Ssl2w7Ss24A92zP7LpnQJ +TXKheEE4cWL7 aX7oOsSoYpB4QPepP359X lQdiJXkNkxba3cbz3tfpT m4ZhG0SVXzczTgyAleKBX 7h3QoKa69T69h IHdpZHRoPSIxNSUiIHZhb Twvyq4jaZ0eLu8+PGNvbC O4fAR5uD6aZwAqLaV9ZGs pG881OxPudWAp Pulah1eiu3eniWp0AtFqY BFwksUviEklTWL1f3QhYd 70K4TptXgos2MoTvn0li9 5kMRba1W0oER6 I2MpEPPpswclgRUpdLbjY A5vZYFovmloQTDtwR3zZZ CrO5i7TyCvCjV2COouJ2R imoO0AXFyfTWr PNetRFK1A76xy7F3FZLxS SPiLWH9fMU9gP4nrUnxzp ogbGVmdDsgdmVydGljYWw fGOqrI830JJCt eNzlXCOddV5yRNQnuBWxo HpkOZ1uNQGznqfvRe8WI2 JFLCBMVUNSRVRJQSBNPC9 0KY38pWOey8A1 bQR3I1NlFQAgbtocpathw MV8JWYdWIMcdS48aLRiWP hfFm8jt3A0n837TMNpJRT bnM44Ai1kxPxb EDZvlQHGtC4ngfnll4tfd pnhTuUeQEEpOWa0GXf0EJ UnxSiyGhJiDZB6LcY6GCK 9zDAidB2hlXgv cavogL6wZxv+MDkvMTEvM Jj0WKkkfME+ARZsXBG8eF bsWXjyKTOwgT5nXBXkK3n 2PfJeCfB0ZZwm G1IcMSKcdwrsSr47yB7pM xUzGlI3XRxaX9UznyC7LA UhhKWnLIhkOVY2Y96pj6W 6JPGbIENkZPO5 bQP3aF8glUlcoppisFMpq DsgdmVydGljYWwtYWxpZ2 46IHRvcDsnPjYxIFllYXJ gYW23PB68oIEf a9M0nUY2E6UnDXRpqdeoz ehaqQT0GIIbDIEpbF45sO AzGJxfRc3zn0A7f640QFE cLDEvjU74Ou3e yGacHMEueLJJhY4hgwnhk 8llouvcZtJyWZGlNTe4SB m5NODdbXymIyXbUBO9ToL 5KBD5xYDneD5j xRyhaxrfsC7nJia+RmVtY CaiXK67TJ08mTRhi3E0nX J6E3OpHKOtfgehhkrukRI 9JLWvFGUtsS54 nVSuKZemIv8wy3Q9s553A FSsHTSfaY61Mn3upQgySX NrwPNXyZ0hjhivq7akiyk gIzAwMDAwMDt0 WQm1GZAhcZcgTlCbSDS5A tX9EPL0oVLlnT7uvHsykb ianJ6hUxc+F4G9tCQ7pGE udDwvdGQ+PC90 rg39T2HwFlruNto1HPOwG CT2fFS0iT5rNZNfOEjhv5 K2jQX6K7ZpdwPdho3ws8k fPWAuWNppD34y aGXvc0N5DSFyuKQ2FGPsd LddYqTqqA28Wbt+PGNvbG sit1JiObjcn8zej2bfrWt 9IjMwJSIgdmFs mGymKNE0i7TcSr63F43cK HdpZHRoPSIzMCUiIHZhbG xdur0xdF3cAf0+PGNvbCB 6iLF8oH9fBgHt RzS1BXycQ557HaUxkBPoX hcum7hcn0mmaSt2MlTsEE ByrwRgmArjSHB4b8PbHg7 2M7OijZrnr5Gv Kue2ri92zTIrw8B5qAY3L 3BhZGRpbmctbGVmdDogMC 0sRYLnrifyAANeyZ2iCPP oN0s2NnHeThJ0 APcnM6ObblL0WMOqyHPiC VXieFJCtL5sfzskw5svfq dwMsNmJRDdQUr0RVj8IED saWduOiBsZWZ0 TqS3OCM5qHIkdX4lwZwua czotA3xWde+ZEm5n9jjyD ToOA6bpXL3MG50GX45vSD km0U2jEQ6D1Kt JRAtuzqjalcmpIO8YTBwF WMbcR48Jl1jqBzuEg2aYS TsRKY0YTKaxSCrF2GhqJ7 yOiAjMDAwMDAw D7AemHEqEHgdO623WYlnK bH2RNAcnaWwR9WxWIHrzW paJtO5k5O8Eh9ZKJ66CE5 7NB24lRWua9R9 oZL3G3ExNQTbbpzomlvxo RM9MKMxWZOkxV29Bp5rdD etFa6oBSPhGPZ3NUEqqGA kT2UtkR6cThSj BUEpUSHxK1TkgNVaCHgbC 556WMlhPpN0TWDazaApJ8 NdEZKchSkfPoW1q7L4Lc5 ZQf62VK42FY40 yIBig7J4nWC8K0JvWGDoj ugtslwlrEO1ZAPzXNJmfN 63Hc7qyIvuTb5kLMRuKNU 2UYNcaEXnZ4Qt eN7uNaLrUHAsBIMmM9Zir XXoDCfzC439OOfbMnK6DL NpouDdU5KhEVWpyAzyIcC 2x6C0Cs7GBZen xfi5S8IiCcsyyQH+PC90Y ADyRC93uJQxdOCeo9vkpA a5MuOlWMXbHJB8sNryOOt vm8BrCUAgE81i bGFw (more content not included)... Normal [facility] Auto Diffon 05-30-2022 Basophils/100 WBC (Bld) 0.6 % Normal 0.0-2.0 [facility] Comment on above: Order Comment: Order Added by Discern Expert. Performed By: #### 7 [id number], [id number], 9795100, 9812617, [id number] #### [facility] [address] [place] [address] Basophils/Leukocytes Auto (Bld) [Pure # fraction] 0.0 E9/L Normal 0.0-0.2 [facility] Comment on above: Order Comment: Order Added by Discern Expert. Performed By: #### 7 [id number], 0912041, 1385533, 4738032, [id number] #### [facility] [address] [place] [address] Eosinophils/100 WBC (Bld) 1.3 % Normal 0.0-8.0 [facility] Comment on above: Order Comment: Order Added by Discern Expert. Performed By: #### 7 [id number], 4675647, 6631837, 4763105, [id number] #### [facility] [address] [place] [address] Eosinophils/Leukocyte s Auto (Bld) [Pure # fraction] 0.1 E9/L Normal 0.0-0.5 [facility] Comment on above: Order Comment: Order Added by Discern Expert. Performed By: #### 7 [id number], 5501304, 0870373, 8685733, [id number] #### [facility] [address] [place] [address] Lymphocytes/100 WBC (Bld) 32.4 % Normal 14.0-50.0 [facility] Comment on above: Order Comment: Order Added by Discern Expert. Performed By: #### 7 [id number], 1516118, 7911296, 7449262, [id number] #### [facility] [address] [place] [address] Lymphocytes/Leukocyte s Auto (Bld) [Pure # fraction] 2.1 E9/L Normal 1.0-4.0 [facility] Comment on above: Order Comment: Order Added by Discern Expert. Performed By: #### 7 [id number], 3898933, 1279697, 3271849, [id number] #### [facility] [address] [place] [address] Monocytes/100 WBC (Bld) 7.6 % Normal 4.0-14.0 [facility] Comment on above: Order Comment: Order Added by Discern Expert. Performed By: #### 7 [id number], 8769714, 5812648, 9206728, [id number] #### [facility] [address] [place] [address] Monocytes/Leukocytes Auto (Bld) [Pure # fraction] 0.5 E9/L Normal 0.2-1.0 [facility] Comment on above: Order Comment: Order Added by Discern Expert. Performed By: #### 7 [id number], 4458124, 5300802, 4429846, [id number] #### [facility] [address] [place] [address] Neutrophils/100 WBC (Bld) 58.1 % Normal 36.0-75.0 [facility] Comment on above: Order Comment: Order Added by Yosvany Expert. Performed By: #### 7 [id number], 9610537, 0275765, 9598247, 00345554 #### [facility] [address] [place] [address] Neutrophils/Leukocyte s Auto (Bld) [Pure # fraction] 3.7 E9/L Normal 2.0-7.5 [facility] Comment on above: Order Comment: Order Added by Yosvany Expert. Performed By: #### 7 [id number], 5391204, 7623012, 8795229, 05885704 #### [facility] [address] [place] [address] BMPon 05-30-2022 Anion gap [Moles/Vol] 11 mmol/L Normal 6-16 [facility] Comment on above: Performed By: #### 7 [id number], 5018654, 4857831, 9773148, 25297304 #### [facility] [address] [place] [address] Calcium [Mass/Vol] 9.1 mg/dL Normal 8.9-11.1 [facility] Comment on above: Performed By: #### 7 [id number], 5329866, 6727619, 9017686, 18452735 #### [facility] [address] [place] [address] Chloride [Moles/Vol] 102 mmol/L Normal 101-111 [facility] Comment on above: Performed By: #### 7 [id number], 3492685, 3468014, 9670177, 80093739 #### [facility] [address] [place] [address] CO2 [Moles/Vol] 28 mmol/L Normal 21-31 [facility] Comment on above: Performed By: #### 7 [id number], 1337343, 9787292, 8127651, 81765877 #### [facility] [address] [place] [address] Creatinine [Mass/Vol] 0.7 mg/dL Normal 0.5-1.3 [facility] Comment on above: Performed By: #### 7 [id number], 2640775, 7640031, 2090342, 26526459 #### [facility] [address] [place] [address] Glucose [Mass/Vol] 115 mg/dL Normal 55-199 [facility] Comment on above: Result Comment: If t his glucose result represents a fasting glucose, interpretation should refer to the following reference range: 55-99 mg/dL Performed By: #### 7 [id number], 7690989, 3006414, 0686343, 46826449 #### [facility] [address] [place] [address] Potassium [Moles/Vol] 4.1 mmol/L Normal 3.5-5.3 [facility] Comment on above: Performed By: #### 7 [id number], 1075757, 2563897, 5482985, 41153995 #### [facility] [address] [place] [address] Sodium [Moles/Vol] 137 mmol/L Normal 135-145 [facility] Comment on above: Performed By: #### 7 [id number], 6602970, 4028921, 5002057, 40385825 #### [facility] [address] [place] [address] Urea nitrogen [Mass/Vol] 14 mg/dL Normal 5-21 [facility] Comment on above: Performed By: #### 7 08527999, 3157054, 8661662, 6513746, 73522297 #### [facility] [address] [place] [address] Urea nitrogen/Creatinine [Mass ratio] 20 No Units Normal 10-20 [facility] Comment on above: Performed By: #### 7 [id number], 2465611, 2563787, 7344228, 23013056 #### [facility] [address] [place] [address] CBC w/ Auto Diffon Erythrocyte distribution width (RBC) [Ratio] 13.7 % Normal 10.9-14.2 [facility] Comment on above: Performed By: #### 7 [id number], 0460001, 9829637, 8630118, 85913814 #### [facility] [address] [place] [address] Hematocrit (Bld) [Volume fraction] 41.6 % Normal 34.0-46.0 [facility] Comment on above: Performed By: #### 7 [id number], 6858139, 6604712, 8212153, 99998749 #### [facility] [address] [place] [address] Hemoglobin (Bld) [Mass/Vol] 14.7 g/dL Normal 12.0-16.0 [facility] Comment on above: Performed By: #### 7 [id number], 6390831, 1668436, 0235340, 31336415 #### [facility] [address] [place] [address] MCH (RBC) [Entitic mass] 32.5 pg Normal 27.0-34.0 [facility] Comment on above: Performed By: #### 7 [id number], 5010576, 4733932, 2697611, 03441310 #### [facility] [address] [place] [address] MCHC (RBC) [Mass/Vol] 35.4 g/dL Normal 31.4-36.0 [facility] Comment on above: Performed By: #### 7 [id number], 5030958, 6281092, 5817937, 71685813 #### [facility] [address] [place] [address] MCV (RBC) [Entitic vol] 91.8 fL Normal 80.0-100.0 [facility] Comment on above: Performed By: #### 7 [id number], 3850849, 7821264, 9425176, 42085670 #### [facility] [address] [place] [address] Platelet mean volume (Bld) [Entitic vol] 9.3 fL Normal 6.4-10.8 [facility] Comment on above: Performed By: #### 7 46945340, 8817493, 6978548, 1371523, 90429996 #### [facility] [address] [place] [address] Platelets (Bld) [#/Vol] 181.0 E9/L Normal 150.0-500.0 [facility] Comment on above: Performed By: #### 7 [id number], 1438894, 5756373, 8073309, 96429871 #### [facility] [address] [place] [address] RBC (Bld) [#/Vol] 4.5 E12/L Normal 4.3-5.9 [facility] Comment on above: Performed By: #### 7 [id number], 7650197, 5047784, 5854836, 10535351 #### [facility] [address] [place] [address] WBC corrected for nucl RBC Auto (Bld) [#/Vol] 6.4 E9/L Normal 4.0-11.0 [facility] Comment on above: Performed By: #### 7 [id number], 7958254, 1995461, 3518183, 96898348 #### [facility] [address] [place] [address] CHEMISTRYOrdered By: SYSTEM SYSTEM on 05-30-2022 Anion gap [Moles/Vol] 11 mmol/L Normal 6 - 16 mEq/L [facility] Remisol Calcium [Mass/Vol] 9.1 mg/dL Normal 8.9 - 11. 1 mg/dL [facility] Chloride [Moles/Vol] 102 mmol/L Normal 101 - 1 11 mmol/L [facility] CO2 [Moles/Vol] 28 mmol/L Normal 21 - 31 mmol/L [facility] Creatinine [Mass/Vol] 0.7 mg/dL Normal 0.5 - 1.3 mg/dL [facility] Remisol GFR/1.73 sq M.predicted among blacks MDRD (S/P/Bld) [Vol rate/Area] mL/min/1.73 m2 Normal >=59mL/min/1. [address] [facility] Chem S GFR/1.73 sq M.predicted among non-blacks MDRD (S/P/Bld) [Vol rate/Area] mL/min/1.73 m2 Normal >=59mL/min/1. [address] [facility] Chem S Glucose [Mass/Vol] 115 mg/dL Normal 55 - 199 mg/dL [facility] Potassium [Moles/Vol] 4.1 mmol/L Normal 3.5 - 5.3 mmol/L [facility] Sodium [Moles/Vol] 137 mmol/L Normal 135 - 145 mmol/L [facility] Remisol Urea nitrogen [Mass/Vol] 14 mg/dL Normal 5 - 21 mg/dL [facility] Remisol Urea nitrogen/Creatinine [Mass ratio] 20 mg/mg Normal 10 - [address] [facility] Remisol CHEMISTRYOrdered By: Rubi jordan on 05-30-2022 HbA1c (Bld) [Mass fraction] 6.2 % High <=5.9% [facility] ChemAutoSS Consent for Treatmenton Consent for Treatment [id number] .[id number]:127 Normal [facility] HEMATOLOGYOrdered By: SYSTEM SYSTEM on [...] 9.3 fL Normal 6.4 - 10.[address] [facility] HemeAutoSS Platelets (Bld) [#/Vol] 181.0 E9/L Normal 150.0 - 500.0 E9/L [facility] HemeAutoSS RBC (Bld) [#/Vol] 4.5 E12/L Normal 4.3 - 5.9 E12/L [facility] HemeAutoSS WBC corrected for nucl RBC Auto (Bld) [#/Vol] 6.4 E9/L Normal 4.0 - 11.0 E9/L [facility] HemeAutoSS [id number] 05-30-2022 HbA1c (Bld) [Mass fraction] 6.2 % High <=5.9 [facility] Comment on above: Performed By: #### 7 [id number], 5903185, 7941526, 8016273, [id number] #### [facility] [address] [place] [address] XR Chest 2 Viewson XR Chest 2 [...] by: JODEE Technologist: CC Normal [facility] eGFRon 05-30-2022 GFR/1.73 sq M.predicted among blacks MDRD (S/P/Bld) [Vol rate/Area] mL/min/{1.73_m2} Normal >=59 [facility] Comment on above: Order Comment: Order added by Discern Expert. Result Comment: eGFR is race adjusted. AA=. Performed By: #### 7 [id number] #### [facility] [address] [place] [address] GFR/1.73 sq M.predicted among non-blacks MDRD (S/P/Bld) [Vol rate/Area] mL/min/{1.73_m2} Normal >=59 [facility] Comment on above: Order Comment: Order added by Discern Expert. Result Comment: Yarn Man arnulfo kidney disease could be indicated at eGFR's of less than 60 mL/min/1.73m2. Kidney failure is indicated at less than 15 mL/min/1.73m2. Performed By: #### 7 [id number] #### [facility] [address] [place] [address] Physician Orderon 05-08-2022 Physician Order [id number] Normal [facility] CBC AUTO DIFFon 11-11-2021 BASO # 0.0 103/ul Normal 0.0-0.1 [facility] Comment on above: Performed By: #### C BC #### [facility] [address] [place] [address] Dr. Farhat Mcneil Basophils/100 WBC (Bld) 0.6 % Normal 0.2-2.0 [facility] Comment on above: Performed By: #### C BC #### [facility] [address] [place] [address] Dr. Farhat Mcneil EO # 0.1 103/ul Normal 0.0-0.7 [facility] Comment on above: Performed By: #### C BC #### [facility] [address] [place] [address] Dr. Farhat Mcneil Eosinophils/100 WBC (Bld) 1.1 % Normal 0.9-7.0 [facility] Comment on above: Performed By: #### C BC #### [facility] [address] [place] [address] Dr. Farhat Mcneil Erythrocyte distribution width (RBC) [Ratio] 12.3 % Normal 11.0-15.0 [facility] Comment on above: Performed By: #### C BC #### [facility] [address] [place] [address] Dr. Farhat Mcneil Hematocrit (Bld) [Volume fraction] 43.6 % Normal 36.0-48.0 [facility] Comment on above: Performed By: #### C BC #### [facility] [address] [place] [address] Dr. Farhat Mcneil Hemoglobin (Bld) [Mass/Vol] 15.0 g/dL Normal 12.0-16.0 [facility] Comment on above: Performed By: #### C BC #### [facility] [address] [place] [address] Dr. Farhat Mcneil IG # 0.02 10e3/ul Normal 0.00-0.03 [facility] Comment on above: Performed By: #### C BC #### [facility] [address] [place] [address] Dr. Farhat Mcneil IG % 0.3 % Normal 0.0-0.5 [facility] Comment on above: Performed By: #### C BC #### [facility] [address] [place] [address] Dr. Farhat Mcneil LYMPH # 2.2 103/ul Normal 1.2-3.8 [facility] Comment on above: Performed By: #### C BC #### [facility] [address] [place] [address] Dr. Farhat Mcneil Lymphocytes/100 WBC (Bld) 31.0 % Normal 20.5-60.0 [facility] Comment on above: Performed By: #### C BC #### [facility] [address] [place] [address] Dr. Farhat Mcneil MANUAL DIFF REQ NO Normal [facility] Comment on above: Performed By: #### C BC #### [facility] [address] [place] [address] Dr. Farhat Mcneil MCH (RBC) [Entitic mass] 31.5 pg Normal 26.7-34.0 [facility] Comment on above: Performed By: #### C BC #### [facility] [address] [place] [address] Dr. Farhat Mcneil MCHC (RBC) [Mass/Vol] 34.4 g/dL Normal 29.9-35.2 [facility] Comment on above: Performed By: #### C BC #### [facility] [address] [place] [address] Dr. Farhat Mcneil MCV (RBC) [Entitic vol] 91.6 fL Normal 81.0-99.0 [facility] Comment on above: Performed By: #### C BC #### [facility] [address] [place] [address] Dr. Farhat Mcneil MONO # 0.5 103/ul Normal 0.3-0.8 [facility] Comment on above: Performed By: #### C BC #### [facility] [address] [place] [address] Dr. Farhat Mcneil Monocytes/100 WBC (Bld) 6.3 % Normal 1.7-12.0 [facility] Comment on above: Performed By: #### C BC #### [facility] [address] [place] [address] Dr. Farhat Mcneil NEUT # 4.3 103/ul Normal 1.4-6.5 [facility] Comment on above: Performed By: #### C BC #### [facility] [address] [place] [address] Dr. Farhat Mcneil Neutrophils/100 WBC (Bld) 60.7 % Normal 43.0-75.0 [facility] Comment on above: Performed By: #### C BC #### [facility] [address] [place] [address] Dr. Farhat Mcneil Platelet mean volume (Bld) [Entitic vol] 10.6 fL Normal 9.5-13.5 [facility] Comment on above: Performed By: #### C BC #### [facility] [address] [place] [address] Dr. Farhat Mcneil PLT 187 103/ul Normal 150-450 [facility] Comment on above: Performed By: #### C BC #### [facility] [address] [place] [address] Dr. Farhat Mcneil RBC 4.76 106/ul Normal 4.20-5.40 [facility] Comment on above: Performed By: #### C BC #### [facility] [address] [address] [address] Farhat Mcneil WBC 7.1 103/ul Normal 4.0-11.0 [facility] Comment on above: Performed By: #### C BC #### [facility] [address] [address] [address] Farhat Mcneil LIPID PROFILEon 11-11-2021 CHOL-HDL RATIO NORM SEE BELOW Normal [facility] [place] [facility] Comment on above: Result Comment: 3.3 - 4.4 LOW RISK 4.4 - 7.1 AVERAGE RISK 7.1 - 11.0 MODERATE RISK >11.0 HIGH RISK Performed By: #### L IPID, T4, CMP, TSH #### [facility] [address] [address] [address] Farhat Mcneil Cholesterol [Mass/Vol] 286 mg/dL Critically high <=200 [facility] Comment on above: Performed By: #### L IPID, T4, CMP, TSH #### [facility] [address] [address] [address] Farhat Mcneil Cholesterol in HDL [Mass/Vol] 44 mg/dL Normal [facility] Comment on above: Performed By: #### L IPID, T4, CMP, TSH #### [facility] [address] [place], [place] [address] Dr. Farhat Mcneil Cholesterol in LDL [Mass/Vol] 187.2 mg/dL Normal [facility] Comment on above: Performed By: #### L IPID, T4, CMP, TSH #### [facility] [address] [place], [place] [address] Dr. Farhat Mcneil Cholesterol.total/Cho lesterol in HDL [Mass ratio] 6.5 {ratio} Normal [facility] Comment on above: Performed By: #### L IPID, T4, CMP, TSH #### [facility] [address] [place], [place] [address] Dr. Farhat Mcneil HDL NORMAL > or = 60 mg/dl - LO W CARDIOVASCULAR RISK <40 mg/dl - HIGH CARDIOVASCULAR RISK Normal [facility] Comment on above: Performed By: #### L IPID, T4, CMP, TSH #### [facility] [address] [address] [address] Farhat Mcneil LDL CALC NORMAL SEE BELOW Normal [facility] Comment on above: Result Comment: <100 mg/dl OPTIMAL 100 - 129 mg/dl NEAR OR ABOVE OPTIMAL 130 - 159 mg/dl BORDERLINE HIGH 160 - 189 mg/dl HIGH >190 mg/dl VERY HIGH Performed By: #### L IPID, T4, CMP, TSH #### [facility] [address] [address] [address] Farhat Mcneil Triglyceride [Mass/Vol] 274 mg/dL Critically high <=150 [facility] Comment on above: Performed By: #### L IPID, T4, CMP, TSH #### [facility] [address] [place] [address] Dr. Farhat Mcneil VLDL CALC 54.8 mg/dL Normal [facility] Comment on above: Performed By: #### L IPID, T4, CMP, TSH #### [facility] [address] [place] [address] Dr. Farhat Mcneil PROF 14(COMP METB)on 022 Albumin [Mass/Vol] 3.8 g/dL Normal 3.5-5.0 [facility] Comment on above: Performed By: #### L IPID, T4, CMP, TSH #### [facility] [address] [place] [address] Dr. Farhat Mcneil Albumin/Globulin [Mass ratio] 1.0 {ratio} Normal [facility] Comment on above: Performed By: #### L IPID, T4, CMP, TSH #### [facility] [address] [address] [address] Farhat Mcneil ALP [Catalytic activity/Vol] 102 U/L Normal 38-126 [facility] Comment on above: Performed By: #### L IPID, T4, CMP, TSH #### [facility] [address] [address] [address] Farhat Mcneil ALT [Catalytic activity/Vol] 46 U/L Normal 9-52 [facility] Comment on above: Performed By: #### L IPID, T4, CMP, TSH #### [facility] [address] [address] [address] Farhat Mcneil Anion gap [Moles/Vol] 9.2 mmol/L Normal [facility] Comment on above: Performed By: #### L IPID, T4, CMP, TSH #### [facility] [address] [address] [address] Farhat Mcneil AST [Catalytic activity/Vol] 21 U/L Normal 14-36 [facility] Comment on above: Performed By: #### L IPID, T4, CMP, TSH #### [facility] [address] [place] [address] Dr. Farhat Mcneil Bilirubin [Mass/Vol] 0.3 mg/dL Normal 0.2-1.3 [facility] Comment on above: Performed By: #### L IPID, T4, CMP, TSH #### [facility] [address] [place] [address] Dr. Farhat Mcneil Calcium [Mass/Vol] 9.0 mg/dL Normal 8.4-10.2 [facility] Comment on above: Performed By: #### L IPID, T4, CMP, TSH #### [facility] [address] [place] [address] Dr. Farhat Mcneil Chloride [Moles/Vol] 103 mmol/L Normal 98-107 [facility] Comment on above: Performed By: #### L IPID, T4, CMP, TSH #### [facility] [address] [place] [address] Dr. Farhat Mcneil CO2 [Moles/Vol] 30.7 mmol/L Critically high 22.0-30.0 [facility] Comment on above: Performed By: #### L IPID, T4, CMP, TSH #### [facility] [address] [place] [address] Dr. Farhat Mcneil Creatinine [Mass/Vol] 0.75 mg/dL Normal 0.52-1.04 [facility] Comment on above: Performed By: #### L IPID, T4, CMP, TSH #### [facility] [address] [address] [address] Farhat Mcneil EGFR-AF NORWEGIAN >60 Normal >=60 [facility] Comment on above: Performed By: #### L IPID, T4, CMP, TSH #### [facility] [address] [address] [address] Farhat Mcneil EGFR-NON AF NORWEGIAN >60 Normal >=60 [facility] Comment on above: Performed By: #### L IPID, T4, CMP, TSH #### [facility] [address] [place] [address] Dr. Farhat Mcneil Globulin (S) [Mass/Vol] 3.7 g/dL Normal [facility] Comment on above: Performed By: #### L IPID, T4, CMP, TSH #### [facility] [address] [place] [address] Dr. Farhat Mcneil Glucose [Mass/Vol] 126 mg/dL Critically high 74-106 [facility] Comment on above: Performed By: #### L IPID, T4, CMP, TSH #### [facility] [address] [place] [address] Dr. Farhat Mcneil Potassium [Moles/Vol] 3.9 mmol/L Normal 3.4-5.0 [facility] Comment on above: Performed By: #### L IPID, T4, CMP, TSH #### [facility] [address] [address] [address] Farhat Mcneil Protein [Mass/Vol] 7.5 g/dL Normal 6.1-8.2 [facility] Comment on above: Performed By: #### L IPID, T4, CMP, TSH #### [facility] [address] [place] [address] Dr. Farhat Mcneil Sodium [Moles/Vol] 139 mmol/L Normal 137-145 [facility] Comment on above: Performed By: #### L IPID, T4, CMP, TSH #### [facility] [address] [place] [address] Dr. Farhat Mcneil Urea nitrogen [Mass/Vol] 11.0 mg/dL Normal 7.0-17.0 [facility] Comment on above: Performed By: #### L IPID, T4, CMP, TSH #### [facility] [address] [address] [address] Farhat Mcneil Urea nitrogen/Creatinine [Mass ratio] 14.7 mg/mg Normal [facility] Comment on above: Performed By: #### L IPID, T4, CMP, TSH #### [facility] [address] [address] [address] Farhat Mcneil T4on 11-11-2021 T4 [Mass/Vol] 7.60 ug/dL Normal 5.53-11.00 [facility] Comment on above: Performed By: #### L IPID, T4, CMP, TSH #### [facility] [address] [address] [address] Farhat Mcneil TSHon 11-11-2021 TSH 2.278 uIU/mL Normal 0.470-4.680 [facility] Comment on above: Performed By: #### L IPID, T4, CMP, TSH #### [facility] [address] [address] [address] Farhat Mcneil TSH RANGE SEE BELOW Normal [facility] Comment on above: Result Comment: <0.3 4 UIU/ml HYPERTHYROID 0.34-5.60 UIU/ml EUTHYROID >5.60 UIU/ml HYPOTHYROID Performed By: #### L IPID, T4, CMP, TSH #### [facility] [address] [address] [address] Farhat Mcneil MRI Shoulder w/o + [...] by Josh Salguero on 10/21/2021 0956 Normal [facility] Bottoming Room Supervisor Coding Summary.on 10-05-2021 Coding Summary. CD:[id number] G h0bWw+PGhlYWQ+JD7HAGF uA73loTEmsW2OQ0nYJQ5K PVQXDSYHPJ7BOX7esUL3J LkqY3TheuIh EvjtlJJoKK06WGj4KQA9i FuaZTllbO4suRSvW0g6Jp NsLL93bX02BGnwZKQzUwU 3LjZpbjsgbWFy E2dcXcAaoOEiCaf+PHRhY mxlIHdpZHRoPScxMDAlJy XloUaaES0dWn5fUTGiBYY vbGxhcHNlOiBj q6qkVREhCNyzVO9nhErpE 2AarEH1TQVwo3k3Ze77cW I+EGMtMWU2lXwrCFrag93 7NpFdx9hnYPE2 fKEcSEnhEPQ3I11et8R9H UTaRZKjPED9yVV4zC5ehV owktusT4VnlWZsFvF5BMQ 8vVDmbV5bxUaz qhmcpI1nDkc+G63IHK8MT PONOU0ENje5H9YcRyxquH I+WB28TAWwSK64aMRtsFB rl5xgmNr2GcQg ZRZlSGG2pOalCTbfa3JlC WXfM06mwIIyb3G1DAPekG gxmULaQdOufMZ7sW5zMMb isaevj9kdaljp Wvoqw2oadr51tT55U79oU YvlFTPaAYU6QAGmJTHyaS oexg3msM9qLj0+XQwsb4w dq6yetYe4KiVb OYOfylZdtNsiCNJ4k1BhN v27Y5TxkQyvy4NiSyl3qi 53yUBie4E7mLB2VAohAQW yiD1qUPpbLuF3 RZHcHxFabP80tFCqTUagY o5npHgxbNtsIB2fZBWwhm slVBFpxP5dZIYheAIxxNn vVE0nHCYuluon y650JqNaVKB9SJAnfCVqT 8CizB3jQnGdVUDnJRLhW1 FuqMBqIZtuA118DEvxSvD 1BHMxylEpR4Oz JZUmtHxaFuL1o7H9Jy8Nx 6EvxhqdNLX0WMuuOLUfUa D6GfHeZkM8F5LsCcx6XGE otGfkIU9eB5Bq GVIsddgphgexiUJ6UHThL GPsjR65vBUwBJzfRo8ss4 C2v697TYKtRNCxsX00Jn4 udDogMTBwdCBU oB9bfyfuv5hrzgxbUdAtZ WRlDUn0QSw3HAIjnEqpAp LlAOR7MhQ2EHP5mYYwyT5 ajBwszxmwnZ4b Oyc+W74qhS2tKMS5PTE2g gguTPCwxwUmMM50KV27Y2 RyPjwvdGFibGU+PGRpdiB fzCmqDA5aGqEo n6wmg2GtNCnnX8OqXTJjI NsmFop4TNJoGZA5cPU7pM 3oAPSzMQcnr6U7uRF9W0J zgyPbyq3as7hm RHVzGSnpO72fbFLzc6L4C MNoxYA0BHZwzByaYnExyK 93Oyc+DDFbpJvme4JmWyl de1mpu5rxhJv7 YfUbQRKlzkNeaFkqLGF9n 0UzRt15N83lUWbiUKEvQC OhKWPjNVAfqJxkpf8wxF5 wIi8+PGNvbCB3 uUD0kZ7lLWHbSfO4RKthE 403BgHqhQOfHymdp9sxt9 xvnDj1ZlTvYCGgrsUzaQh lLKA2d7EcPc89 L29xHLjmFALmSHLfSKFoD GRpxFzocx8bgC6oJe8+PC 7of7srph11vS66dJE+PHR gQDI2uEzxYZbb NRMqmL2iDBncIdG8NNVxE vEjgY55jIXsGLfcZt6cpY somPysTV6jXJZjuilyy98 5XlMql9hfKORd gMJuBFoyVNX6N75np3B6O LPsATMwKCJ9vUG7gO4wtZ lnbjogbGVmdDsgdmVydGl wUVdnTKzaY741 IHRvcDsnPlBhdGllbnQgT mHnAQf8E0OjMmh5BTLimP uaXF9btYGpVDnpNw9qzYo bwUagNO2dYLGu irkqh333NbVrp4snHUZsm BWjWNjuQIF7H66my5L5MN MjNKHzFEU1sCW6nY6heQo nbjogbGVmdDsg kvCflVgaUFbfYKgpU227L HRvcDsnPkJpcnRoIERhdG N6CV68XS08zVPcs3R0tCC 7F4FmUFNalkjw zqjaoJW8UTUkVKLbvO74F g7zrQxhVs5bHLHxRII7LC DluQCzU6PrqC2lRoUsBWQ fNSLfT0KlfDRl QKkzP739TBzsUmL9BTZgj nDmJ1VbRIJlkFpcTaA2h9 J4Xs5SX0E5XJ66HD82qWW hf4C7bCP0L3Fw REJmchzwjrxpjDM3FYHjL FXqmW11Tz4nyJoyOb3fFF ItXOQ1RHKqrRScI9IzaI6 yOiAjMDAwMDAw W4HkiXQcGMgdB098JRgfQ hO5SUOnsrFnD7NpKTVmwI zxNdV1i1K7Fr1DKFm1CM6 0DP23pXUjs0E0 qZN0B9IhNKFirlkhxbexc VQ6AGCmPASyzJ59Bd1xuD epZd1kJZIeSTW5NADmiVS nH7AqcV5yTfCz HPZlSMBdF4CtvDKmYTgyR 049EEstPcI8COTgyzOcM0 YkUKBtcKhmZuR8a9N2Qt8 TNHOaUS99JVN2 sZD6DH60UI07P3McElujq GFibGU+PHRhYmxlIHdpZH RoPScxMDAlJyBzdHlsZT0 sPl8zAPBkURNp bNoiwMYsHhVqi6vlWMWvP GlhSQ0obHpaX4XsrQL3EQ Zxy1w7Bv50L64xF1AesHL +GWGmmIU4hWM6 aQ7xXjEhFjX2EKfeX314M oEznJVwVnpzf8luk5vmuH v9NmA8PLLvqjCutQzePJO 9g5ZqEv53C08h IHdpZHRoPSIxNSUiIHZhb Qwben2akU8cIa6+PGNvbC G8sYF0sG2eXfCoCqF0NEc dT885VhMwfZXf Hwgtp6vsy3gnhXn2NgCmK JChncDkhJsaILC3l2UcYj 72Y2HaxLnnh0YrJjt8dz3 7eLYho6H9qHI0 M9RfLQGrdcguoCVfpQbeV Y2wFWGofhetRACjsS3kAC GmX7h8TpOtGcQ6PHimP3R ldiM3MDLsvXJg JDkmSGU0A53kl0V5JYDoA GBwFEP7yGP5mG0clEbwuu ogbGVmdDsgdmVydGljYWw cKIizI891JXWe rLrxGPEarA3oMQFtqINeu LuoNS1kMDJmlqefXw4FJ8 JFLCBMVUNSRVRJQSBNPC9 5VO80wSNed2W7 vGT1F9JnLHFsfvkoyrlgv YU3RZEiKSMneW42yANuZT qfWq5jc3X1h149WUTrBKU kwP48Mk6eoZsu RKSolNEIdG2ohrkpv3htz uydLsPhMMDpFNp7GBn0XL TufHunIbXgZDE3UkX9HDG 9dQFjzJ6hwLzk uicniX0tHqy+MDkvMTEvM Ar3RIxecTU+OKNmPRV4mZ meTLegCCVieP4zJYEkA7z 1VoLtBzF3PPum X7FoBSAotkmbJm41yW5hZ fOiCxJ5SUbjP1RhqwE8EA NotNHmPDadQFG7L28dy8B 2XBQwBXEiUFJ0 nNW6xH9wtGxekqryvTBwx DsgdmVydGljYWwtYWxpZ2 46IHRvcDsnPjYwIFllYXJ ePY75XW18eFHj y5Y6sAK0X1PdUGYdkfcrp jwzjGV6HJUcQCVjcX50eT LrPVlgDw7ug9Q4r681PIY lXKZewG44Jo0c vCouYNZkbPZLoW7xhfctr 2symrrlBkRwNYTlKYt8JZ j9HRBkrCoyPcLdYZA4MtK 4GEU5aMFkkM5s iXknpzfnxK1wVde+RmVtY IgeAK90ZB78nTTwd1Q6zN G5O6VtTJHeqqdvfupbgZT 4ABTaTNSuvQ88 iSSkPMyhPz0ix0C8y339Y KYzSBMawK63Ei4xdZrsJM WqbZDKlN0lfqzsm7lyywh gIzAwMDAwMDt0 KYj1BFTglZcyWlDyNHS3G rM7LIK0vHLhvD6egUbcnu qnbK4zEec+I2M2hYQ8lTG udDwvdGQ+PC90 hj85C1TrPfhfSda3LKQiR DN8mWL1nR0bHHGdBYcrt5 T6oWH9I0MxryZfuv8uw2p dVQVmOQfbC05v oHMhp5O6AZLriKA9GVJfz BayKkXtrC16Trf+PGNvbG iwk2QkPjmmh1klo3ofoHd 9IjMwJSIgdmFs rJetUZL5l6UfLk75P47uP HdpZHRoPSIzMCUiIHZhbG uuwa9xsV8jYo9+PGNvbCB 0yDL1cS0pDqHa ZbI3YOfmC472FvQvoPQwF shol9ucr7wmeEw6LnHdJC OofeOozUfzBNH6f8VhRd6 2G1WsqChwb5Nk Hpc0xy66vYIkk2T7lEF2M 3BhZGRpbmctbGVmdDogMC 0oBFLqmegkGZCsbZ8hOJC dK1v9KcWgXeW8 GZvwG6SyqfT4FZOuoABoT JKfqWJNtY5yiwbqx5vbdq lcNnUvIYWkYCe8OMi2JCB saWduOiBsZWZ0 FgB8VQH7hVRxvU4zpDdcc ljqlK9mEae+QVs8t5itqG EfKH8ekDX4XA95SV06oGO ea5Y3tLZ5O3Jo IHTlshcwfmqcuSC3FKUjE LDprU87Nf8utGszNv7aXA TmZBX7LSVmzDGyB7GcvI1 yOiAjMDAwMDAw K7BqvEXzZRmqJ289VWcrV wX6KMAfioBvO8BbYLKsdW xdPqY4a6R0Ct1TNZ31ED7 4XU37tSOgc8D1 wIC4U1WwCIMcihfcopjks ZU2AWZnOZCjzR68Gv3vqP bdGh7lWNLgTYI6RYVzlBL oQ1FipQ7aZeNr QGGyQKYxL1FpyJHpOTcvS 230SYmxBdB6WTGazjPkQ7 GcCOWdpYvuLbN0e0V3Sl1 YNn51KM93TB78 wYDtt6V4pIV6J9CuKZMvz sxxxyxbkEK3CJSbWAOclR 82Lv5pjUoqSk3lHIEhWAR 5LVKjcTHlZ7Yg uB4bEeHnYZHcDZBuT9Zng JRuCXyvJ203IZreKzH7HX NdyiEuB1BjCUXijFknJfC 6g5Z3Sl2TKEmt pzg0U2RvRvrasMA+PC90Y KMnEJ70yAOqpJUma0mhxZ w8QyDeRBKvWMN4fZqlHSz qv9VyIURhE07r bGFw (more content not included)... Normal [facility] Consent for Treatmenton 3 Consent for Treatment [id number]#1 .00CD:127 Normal [facility] NM Bone Scan 3 Phaseon [...] Post Administration (hrs): 3 Normal [facility] Physician Orderon 09-12-2021 Physician Order [id number]# 1.00CD:127 Normal [facility] MRI Shoulder w/o Lefton 0 [...] by Jackson Ma on 08/28/2021 0949 Normal [facility] Specialist FLUORO FOR SURGICAL PROCEDUR ESon [...] Phillip Corral MD 09/11/20 Final result Normal [facility] Rory, Chpo Incoming Radiant Results From [employer] - 09/11/2020 5:09 PM EST FLUORO FOR SURGICAL PROCEDURES : 09/11/2020 3:53 PM CLINICAL HISTORY: Lumbar Diskectomy . COMPARISON: None available. Intraoperative fluoroscopy was provided for Dr. Santosh gonzalez. A total of 1 seconds of fluoroscopy was used, with 4 fluoroscopic stills saved. No diagnostic images were obtained. Please see Dr. Rios surgical notes for completeness. [place] FLUORO FOR SURGICAL PROCEDURES : 09/11/2020 3:53 PM CLINICAL HISTORY: Lumbar Diskectomy . COMPARISON: None available. Intraoperative fluoroscopy was provided for Dr. Santosh gonzalez. A total of 1 seconds of fluoroscopy was used, with 4 fluoroscopic stills saved. No diagnostic images were obtained. Please see Dr. Rios surgical notes for completeness. [place], [place] POCT Glucoseon 09-11-2020 Glucose [Mass/Vol] 145 mg/dL Critically high 60-115 M [facility] Comment on above: Performed By: #### P GLU #### [facility] [address] [facility] [address] POC Performed on ACCU-CHEK Normal [facility] Comment on above: Performed By: #### P GLU #### [facility] [address] [place] [address] Glucose [Mass/Vol] 145 mg/dL High 60 - 115 mg/dl [place], [place] Interpretation and review of laboratory results Abnormal [place] Performed on ACCU-CHEK [place] Glucose [Mass/Vol] 131 mg/dL Critically high 60-115 M [facility] Comment on above: Performed By: #### P GLU #### [facility] [address] [place] [address] POC Performed on ACCU-CHEK Normal [facility] Comment on above: Performed By: #### P GLU #### [facility] [address] [place] [address] Glucose [Mass/Vol] 131 mg/dL High 60 - 115 mg/dl [place] Interpretation and review of laboratory results Abnormal [place] Performed on ACCU-CHEK [place] Surgical Specimenon 09-11-20 20 Surgical Specimen [facility] [address] [place] [address] FINAL SURGICAL PATHOLOGY REPORT Patient Name: JORDY DUNNE Accession No: [id number] Age Sex: 1960 Location: [facility] [id number] Account No: [id number] Collected: 09/11/2020 Med Rec No: [id number] Received: 09/12/2020 Attend Phys: MAGDALENO RIOS Completed: [...] one cassette after brief decalcification. ALIFA/ALIFA CPT: 26487 X1 63691 X1 VENKATESH COTTON M.D. 09/13/2020 Electronically signed out by Page 1 of 1 [facility] Comment on above: Performed By: #### S UR #### [facility] [address] [place] [address] XR CHEST PORTABLEon 09-11-20 20 INR Coag (Bld) [Relative time] NO ACUTE ACTIVE CARDIOPULMONARY PROCESS [place] EXAMINATION: CHEST PORTABLE VIEW CLINICAL HISTORY: Back pain COMPARISONS: None FINDINGS: Single views of the chest is submitted. The cardiac silhouette is enlarged. Pulmonary vascular unremarkable. Right sided trachea. No focal infiltrates. No Pneumothoraces. [place] Rory, Chpo Incoming Radiant Results From [employer] - 09/11/2020 7:58 AM EST EXAMINATION: CHEST PORTABLE VIEW CLINICAL HISTORY: Back pain COMPARISONS: None FINDINGS: Single views of the chest is submitted. The cardiac silhouette is enlarged. Pulmonary vascular unremarkable. Right sided trachea. No focal infiltrates. No Pneumothoraces. IMPRESSION: NO ACUTE ACTIVE CARDIOPULMONARY PROCESS [place] XR LUMBAR SPINE (MIN 4 VIEWS )on 09-11-2020 Rory, Chpo Incoming Radiant Results From [employer] - 09/11/2020 10:22 AM EST EXAMINATION: XR [...] show degenerative changes.. IMPRESSION NO ACUTE FRACTURE. [place] EXAMINATION: XR LUMBAR SPINE (MIN 4 [...] show degenerative changes.. IMPRESSION NO ACUTE FRACTURE. [place] APTTon 09-10-2020 aPTT Coag (Bld) [Time] 30.5 s [place] Comment on above: Effective 07/25/2020: Heparin Therapeutic Range: 64.0 98.0 seconds. CBC Auto Differentialon 08-22 Basophils (Bld) [#/Vol] 0.1 10*3/uL 0 - 0.2 K/uL [place] Basophils/100 WBC (Bld) 0.7 % [place] Eosinophils (Bld) [#/Vol] 0.0 10*3/uL 0 - 0.7 K/uL [place] Eosinophils/100 WBC (Bld) 0.2 % [place] Erythrocyte distribution width (RBC) [Ratio] 13.2 % 11.5 - 14.5 % [place] Hematocrit (Bld) [Volume fraction] 41.0 % 37 - 47 % [place] Hemoglobin (Bld) [Mass/Vol] 14.2 g/dL 12 - 16 g/dL [place] Interpretation and review of laboratory results Abnormal [place] Lymphocytes (Bld) [#/Vol] 2.9 10*3/uL 1 - 4.8 K/uL [place] Lymphocytes/100 WBC (Bld) 25.0 % [place] MCH (RBC) [Entitic mass] 32.9 pg High 27 - 31.3 pg [place] MCHC (RBC) [Mass/Vol] 34.6 % 33 - 37 % [place] MCV (RBC) [Entitic vol] 95.0 fL 82 - 100 fL [place] Monocytes (Bld) [#/Vol] 0.4 10*3/uL 0.2 - 0.8 K/uL [place] Monocytes/100 WBC (Bld) 3.8 % [place] Neutrophils Absolute 8.2 K/uL High 1.4 - 6 .5 K/uL [place] Neutrophils/100 WBC (Bld) 70.3 % [place] Platelets (Bld) [#/Vol] 196 10*3/uL 130 - 400 K/uL [place] RBC (Bld) [#/Vol] 4.32 10*6/uL [place] WBC (Bld) [#/Vol] 11.6 10*3/uL High 4.8 - 10.8 K/uL [place] CBC With Platelet and Differ entialon 09-10-2020 Basophils (Bld) [#/Vol] 0.1 10*3/uL Normal 0.0-0.2 [facility] Comment on above: Performed By: #### C BCWD #### [facility] [address] [place] [address] Basophils/100 WBC (Bld) 0.7 % Normal [facility] Comment on above: Performed By: #### C BCWD #### [facility] [address] [place] [address] Eosinophils (Bld) [#/Vol] 0.0 10*3/uL Normal 0.0-0.7 [facility] Comment on above: Performed By: #### C BCWD #### [facility] [address] [place] [address] Eosinophils/100 WBC (Bld) 0.2 % Normal [facility] Comment on above: Performed By: #### C BCWD #### [facility] [address] [place] [address] Erythrocyte distribution width (RBC) [Ratio] 13.2 % Normal 11.5-14.5 [facility] Comment on above: Performed By: #### C BCWD #### [facility] [address] [place] [address] Hematocrit (Bld) [Volume fraction] 41.0 % Normal 37.0-47.0 [facility] Comment on above: Performed By: #### C BCWD #### [facility] [address] [place] [address] Hemoglobin (Bld) [Mass/Vol] 14.2 g/dL Normal 12.0-16.0 [facility] Comment on above: Performed By: #### C BCWD #### [facility] [address] [place] [address] Lymphocytes (Bld) [#/Vol] 2.9 10*3/uL Normal 1.0-4.8 [facility] Comment on above: Performed By: #### C BCWD #### [facility] [address] [place] [address] Lymphocytes/100 WBC (Bld) 25.0 % Normal [facility] Comment on above: Performed By: #### C BCWD #### [facility] [address] [place] [address] MCH (RBC) [Entitic mass] 32.9 pg Critically high 27.0-31.3 [facility] Comment on above: Performed By: #### C BCWD #### [facility] [address] [place] [address] MCHC (RBC) [Mass/Vol] 34.6 % Normal 33.0-37.0 [facility] Comment on above: Performed By: #### C BCWD #### [facility] [address] [place] [address] MCV (RBC) [Entitic vol] 95.0 fL Normal 82.0-100.0 [facility] Comment on above: Performed By: #### C BCWD #### [facility] [address] [place] [address] Monocytes (Bld) [#/Vol] 0.4 10*3/uL Normal 0.2-0.8 [facility] Comment on above: Performed By: #### C BCWD #### [facility] [address] [place] [address] Monocytes/100 WBC (Bld) 3.8 % Normal [facility] Comment on above: Performed By: #### C BCWD #### [facility] [address] [place] [address] Neutrophils (Bld) [#/Vol] 8.2 10*3/uL Critically high 1.4-6.5 [facility] Comment on above: Performed By: #### C BCWD #### [facility] [address] [place] [address] Neutrophils/100 WBC (Bld) 70.3 % Normal [facility] Comment on above: Performed By: #### C BCWD #### [facility] [address] [place] [address] Platelets (Bld) [#/Vol] 196 10*3/uL Normal 130-400 [facility] Comment on above: Performed By: #### C BCWD #### [facility] [address] [facility] [address] RBC (Bld) [#/Vol] 4.32 10*6/uL Normal 4.20-5.40 [facility] Comment on above: Performed By: #### C BCWD #### [facility] [address] [facility] [address] WBC (Bld) [#/Vol] 11.6 10*3/uL Critically high 4.8-10.8 [facility] Comment on above: Performed By: #### C BCWD #### [facility] [address] [facility] [id number] COVID-19on 09-10-2020 COVID-19, NAAT Not Detected Normal Not Detect [facility] Comment on above: Result Comment: [...] authorized laboratories. Fact sheet for Healthcare Providers: https://www.fda.gov/media/415568/download Fact sheet for Patients: https://www.fda.gov/media/570593/download METHODOLOGY: Isothermal Nucleic Acid Amplification Performed By: #### C OVPC #### [facility] [address] [facility] [address] SARS-CoV-2, NAAT Not Detected Not Detected [place], [place] Comment on above: Rapid NAAT: Negative [...] authorized laboratories. Fact sheet for Healthcare Providers: https://www.fda.gov/media/335268/download Fact sheet for Patients: https://www.fda.gov/media/211357/download METHODOLOGY: Isothermal Nucleic Acid Amplification Comprehensive Metabolic Pane felipa 09-10-2020 Albumin [Mass/Vol] 3.9 g/dL Normal 3.5-4.6 [facility] Comment on above: Performed By: #### C MP #### [facility] [address] [place] [address] ALP [Catalytic activity/Vol] 76 U/L Normal 40-130 [facility] Comment on above: Performed By: #### C MP #### [facility] [address] [place] [address] ALT [Catalytic activity/Vol] 22 U/L Normal 0-33 [facility] Comment on above: Result Comment: Spec imen hemolysis has exceeded the interference as defined by Shikha. Result may be affected. Suggest recollection if clinically indicated. Performed By: #### C MP #### [facility] [address] [place] [address] Anion gap [Moles/Vol] 9 mmol/L Normal 9-15 [facility] Comment on above: Performed By: #### C MP #### [facility] [address] [place] [address] AST [Catalytic activity/Vol] 18 U/L Normal 0-35 [facility] Comment on above: Result Comment: Spec imen hemolysis has exceeded the interference as defined by Shikha. Value may be falsely increased. Suggest recollection if clinically indicated. Performed By: #### C MP #### [facility] [address] [place] [address] Bilirubin [Mass/Vol] 0.3 mg/dL Normal 0.2-0.7 [facility] Comment on above: Performed By: #### C MP #### [facility] [address] [place] [address] Calcium [Mass/Vol] 9.2 mg/dL Normal 8.5-9.9 [facility] Comment on above: Performed By: #### C MP #### [facility] [address] [place] [address] Chloride [Moles/Vol] 103 mmol/L Normal 95-107 [facility] Comment on above: Performed By: #### C MP #### [facility] [address] [place] [address] CO2 [Moles/Vol] 28 mmol/L Normal 20-31 [facility] Comment on above: Performed By: #### C MP #### [facility] [address] [place] [address] Creatinine [Mass/Vol] 0.67 mg/dL Normal 0.50-0.90 [facility] Comment on above: Performed By: #### C MP #### [facility] [address] [place] [address] GFR/1.73 sq M predicted among blacks MDRD (S/P/Bld) [Vol rate/Area] mL/min/{1.73_m2} Normal >60 [facility] Comment on above: Result Comment: >60 mL/min/1.73m2 EGFR, calc. for ages 18 and older using the MDRD formula (not corrected for weight), is valid for stable renal function. Performed By: #### C MP #### [facility] [address] [place] [address] GFR/1.73 sq M.predicted MDRD (S/P/Bld) [Vol rate/Area] mL/min/{1.73_m2} Normal >60 [facility] Comment on above: Result Comment: >60 mL/min/1.73m2 EGFR, calc. for ages 18 and older using the MDRD formula (not corrected for weight), is valid for stable renal function. Performed By: #### C MP #### [facility] [address] [place] [address] Globulin (S) [Mass/Vol] 2.4 g/dL Normal 2.3-3.5 [facility] Comment on above: Performed By: #### C MP #### [facility] [address] [place] [address] Glucose [Mass/Vol] 189 mg/dL Critically high 70-99 [facility] Comment on above: Performed By: #### C MP #### [facility] [address] [place] [address] Potassium [Moles/Vol] 4.2 mmol/L Normal 3.4-4.9 [facility] Comment on above: Result Comment: Spec imen hemolysis has exceeded the interference as defined by Shikha. Value may be falsely increased. Suggest recollection if clinically indicated. Performed By: #### C MP #### [facility] [address] [place] [address] Protein [Mass/Vol] 6.3 g/dL Normal 6.3-8.0 [facility] Comment on above: Performed By: #### C MP #### [facility] [address] [place] [address] Sodium [Moles/Vol] 140 mmol/L Normal 135-144 [facility] Comment on above: Performed By: #### C MP #### [facility] [address] [place] [address] Urea nitrogen [Mass/Vol] 17 mg/dL Normal 6-20 [facility] Comment on above: Performed By: #### C MP #### [facility] [address] [place] [address] Albumin [Mass/Vol] 3.9 g/dL 3.5 - 4.6 g/dL [place], [place] ALP [Catalytic activity/Vol] 76 U/L 40 - 130 U/L [place] ALT [Catalytic activity/Vol] 22 U/L 0 - 33 U/L [place] Comment on above: Specimen hemolysis h as exceeded the interference as defined by Shikha. Result may be affected. Suggest recollection if clinically indicated. Anion gap [Moles/Vol] 9 mmol/L [place], [place] AST [Catalytic activity/Vol] 18 U/L 0 - 35 U/L [place] Comment on above: Specimen hemolysis h as exceeded the interference as defined by Shikha. Value may be falsely increased. Suggest recollection if clinically indicated. Bilirubin Ql (U) 0.3 mg/dL 0.2 - 0.7 mg/dL [place] Calcium [Mass/Vol] 9.2 mg/dL 8.5 - 9.9 mg/dL [place] Chloride [Moles/Vol] 103 mmol/L [place], [place] CO2 [Moles/Vol] 28 mmol/L [place], [place] Creatinine [Mass/Vol] 0.67 mg/dL 0.5 - 0.9 mg/dL [place] GFR >60.0 >60 [place] Comment on above: >60 mL/min/1.73m2 EG FR, calc. for ages 18 and older using the MDRD formula (not corrected for weight), is valid for stable renal function. GFR Non- >60.0 >60 [place] Comment on above: >60 mL/min/1.73m2 EG FR, calc. for ages 18 and older using the MDRD formula (not corrected for weight), is valid for stable renal function. Globulin (S) [Mass/Vol] 2.4 g/dL 2.3 - 3.5 g/dL [place] Glucose [Mass/Vol] 189 mg/dL High 70 - 99 mg/dL [place] Interpretation and review of laboratory results Abnormal [place] Potassium [Moles/Vol] 4.2 mmol/L [place] Comment on above: Specimen hemolysis h as exceeded the interference as defined by Shikha. Value may be falsely increased. Suggest recollection if clinically indicated. Protein [Mass/Vol] 6.3 g/dL 6.3 - 8 g/dL [place] Sodium [Moles/Vol] 140 mmol/L [place] Urea nitrogen [Mass/Vol] 17 mg/dL 6 - 20 mg/dL [place] MRI LUMBAR SPINE WO CONTRAST on [...] Nando Dixon MD 09/10/20 Final result Normal [facility] Rory, Chpo Incoming Radiant Results From Afrimarkete/Pacs - 09/10/2020 4:27 PM EST STUDY IS [...] superior facet joint spurring and/or ligamentous thickening. [facility], [place] STUDY IS REVIEWED WITH THE REFERRING NEUROSURGEON [...] superior facet joint spurring and/or ligamentous thickening. [place], [place] Partial Thromboplastin Timeo n 09-10-2020 aPTT Coag (Bld) [Time] 30.5 s Normal 24.4-36.8 [facility] Comment on above: Result Comment: Effe ctive 07/25/2020: Heparin Therapeutic Range: 64.0 ? 98.0 seconds. Performed By: #### P TT #### [facility] [address] [facility] [address] Prothrombin Timeon 0 INR Coag (PPP) [Relative time] 1.1 {INR} Normal [facility] Comment on above: Performed By: #### P T #### [facility] [address] [facility] [address] PT Coag (PPP) [Time] 13.9 s Normal 12.3-14.9 [facility] Comment on above: Performed By: #### P T #### [facility] [address] [facility] [address] Protime-INRon 09-10-2020 INR Coag (PPP) [Relative time] 1.1 {INR} [place], [place] PT Coag (PPP) [Time] 13.9 s [place] XR CHEST PORTABLEon 09-10-20 20 XR CHEST PORTABLE EXAMINATION: CHEST PORTABLE VIEW CLINICAL HISTORY: Back pain COMPARISONS: None FINDINGS: Single views of the chest is submitted. The cardiac silhouette is enlarged. Pulmonary vascular unremarkable. Right sided trachea. No focal infiltrates. No Pneumothoraces. IMPRESSION: NO ACUTE ACTIVE CARDIOPULMONARY PROCESS Interpreted by: Phillip Corral MD Signed by: Phillip Corral MD 09/11/20 Final result Normal [facility] XR LUMBAR SPINE (MIN 4 [...] Phillip Corral MD 09/11/20 Final result Normal [facility] Vital Signs Date Time Vital Sign Value Performing Clinician Facility 08-25-2024 09:37-0500 Diastolic blood pressure 92 mm[Hg] Mela Zuletamartitawilly ENGINEERING PROGRAM MANAGER Work Phone: [facility] 08-25-2024 09:37-0500 Systolic blood pressure 146 mm[Hg] Mela Daily ENGINEERING PROGRAM MANAGER Work Phone: [facility] 08-25-2024 08:58-0500 Body height 162.6 cm Mela Daily ENGINEERING PROGRAM MANAGER Work Phone: [facility] 08-25-2024 08:58-0500 Body mass index (BMI) [Ratio] 30.31 kg/m2 Mela Daily ENGINEERING PROGRAM MANAGER Work Phone: [facility] 08-25-2024 08:58-0500 Body temperature 98.49 [degF] Mela Daily ENGINEERING PROGRAM MANAGER Work Phone: [facility] 08-25-2024 08:58-0500 Body weight 80.11 kg Mela Daily ENGINEERING PROGRAM MANAGER Work Phone: [facility] 08-25-2024 08:58-0500 Heart rate 69 /min Mela Daily ENGINEERING PROGRAM MANAGER Work Phone: [facility] 08-25-2024 08:58-0500 Respiratory rate 18 /min Mela Daily ENGINEERING PROGRAM MANAGER Work Phone: [facility] 08-25-2024 08:58-0500 SaO2% (BldA) [Mass fraction] 96 % Mela Daily ENGINEERING PROGRAM MANAGER Work Phone: [facility] 05-26-2024 09:03-0400 Body height 162.6 cm Mela Fanz ENGINEERING PROGRAM MANAGER Work Phone: [facility] 05-26-2024 09:03-0400 Body mass index (BMI) [Ratio] 29.39 kg/m2 Mela Fanz ENGINEERING PROGRAM MANAGER Work Phone: [facility] 05-26-2024 09:03-0400 Body temperature 97.81 [degF] Mela Fanz ENGINEERING PROGRAM MANAGER Work Phone: [facility] 05-26-2024 09:03-0400 Body weight 77.66 kg Mela Fanz ENGINEERING PROGRAM MANAGER Work Phone: [facility] 05-26-2024 09:03-0400 Diastolic blood pressure 84 mm[Hg] Mela Fanz ENGINEERING PROGRAM MANAGER Work Phone: [facility] 05-26-2024 09:03-0400 Heart rate 72 /min Mela Fanz ENGINEERING PROGRAM MANAGER Work Phone: [facility] 05-26-2024 09:03-0400 Respiratory rate 18 /min Mela Fanz ENGINEERING PROGRAM MANAGER Work Phone: [facility] 05-26-2024 09:03-0400 SaO2% (BldA) [Mass fraction] 97 % Mela Fanz ENGINEERING PROGRAM MANAGER Work Phone: [facility] 05-26-2024 09:03-0400 Systolic blood pressure 138 mm[Hg] Mela Merlynholz ENGINEERING PROGRAM MANAGER Work Phone: [facility] 09-11-2020 17:30-0500 BP Diastolic 94 mm[Hg] [facility] [place] 09-11-2020 17:30-0500 BP Systolic 182 mm[Hg] [facility] [place] 09-11-2020 17:30-0500 Pulse (Heart Rate) 60 /min [facility] [place] 09-11-2020 17:30-0500 Pulse Oximetry 94 % [facility]daleno Rios [facility] [place] 09-11-2020 17:30-0500 Respiratory Rate 19 /min Magdaleno Rios [facility] , [place] 09-11-2020 16:50-0500 Body Temperature 98.01 [degF] Magdaleno Rios [facility] , [place] 09-10-2020 10:41-0500 BMI (Body Mass Index) 27.46 kg/m2 [facility] 09-10-2020 10:41-0500 Body weight 72.58 kg [facility] [place] 09-10-2020 10:41-0500 Height 162.6 cm Magdaleno [facility] , [place] Encounters Encounter Date Encounter Type Care Provider Facility Start: 11-29-2024 End: 11-29-2024 ambulatory MELA AICHHOLZ Not Available Start: 11-28-2024 End: 11-28-2024 ambulatory ZAIDA FLORES Not Available Start: 08-25-2024 End: 08-25-2024 Bamboo flowsheet Mela Abimbola ENGINEERING PROGRAM MANAGER Work Phone: [facility] Start: 08-25-2024 End: 08-25-2024 Bamboo flowsheet Mela Abimbola ENGINEERING PROGRAM MANAGER Work Phone: [facility] Start: 08-25-2024 End: 08-25-2024 Office outpatient visit 25 minutes Mela Abimbola ENGINEERING PROGRAM MANAGER Work Phone: [facility] Comment on above: Type 2 diabetes milana itus without complication, without long- term current use of insulin (CMS/HCC) (Primary Dx); Essential hypertension (CMS/HCC); Tobacco dependence; Colon cancer screening; Encounter for screening mammogram for malignant neoplasm of breast; Mixed hyperlipidemia (CMS/HCC); Obesity (BMI 30-39.9) Start: 08-25-2024 End: 08-25-2024 ambulatory MELA AICHHOLZ Not Available Start: 08-02-2024 End: 08-02-2024 Refill Florinda Byers MA [facility] Comment on above: Mixed hyperlipidemia (CMS/HCC) Start: 07-21-2024 End: 07-21-2024 Refill Mela Aichholz ENGINEERING PROGRAM MANAGER Work Phone: [facility] Comment on above: Essential hypertensi on (CMS/HCC) Start: 05-26-2024 End: 05-26-2024 Bamboo flowsheet Mela Aichholz ENGINEERING PROGRAM MANAGER Work Phone: [facility] Start: 05-26-2024 End: 05-26-2024 Bamboo flowsheet Mela Aichholz ENGINEERING PROGRAM MANAGER Work Phone: [facility] Start: 05-26-2024 End: 05-26-2024 Office outpatient visit 25 minutes Mela Aichholz ENGINEERING PROGRAM MANAGER Work Phone: [facility] Comment on above: Essential hypertensi on (CMS/HCC) (Primary Dx); Type 2 diabetes mellitus without complication, without long-term current use of insulin (CMS/[facility]); Overweight (BMI 25.0-29.9); Tobacco dependence Start: 05-26-2024 End: 05-26-2024 ambulatory MELA AICHHOLZ Not Available Start: 05-19-2024 End: 05-19-2024 Clinisync Result Encounter Mela Aichholz ENGINEERING PROGRAM MANAGER Work Phone: [facility] External Department Unsolicited Start: 05-19-2024 End: 05-19-2024 Clinisync Result Encounter Mela Aichholz ENGINEERING PROGRAM MANAGER Work Phone: [facility] External Department Unsolicited Start: 05-10-2024 End: 05-10-2024 Refill Mela Aichholz ENGINEERING PROGRAM MANAGER Work Phone: [facility] Comment on above: Essential hypertensi on (CMS/HCC) Start: 04-25-2024 End: 04-25-2024 ambulatory MELA AICHHOLZ Not Available Start: 02-18-2024 End: 02-18-2024 ambulatory MELA AICHHOLZ Not Available Start: 01-07-2024 End: 01-07-2024 ambulatory MELA AICHHOLZ Not Available Start: 10-27-2023 Refill Mela Aichholz ENGINEERING PROGRAM MANAGER Work Phone: [facility] Comment on above: Mixed hyperlipidemia (CMS/HCC) (Primary Dx) Start: 09-05-2022 End: 09-06-[address] EVAN GILLESPIE Facility: Start: 05-30-2022 End: 05-31-2022 ambulatory Orlando Cole Facility:[facility] Start: 05-30-2022 End: 05-30-2022 Patient encounter procedure Orlando Cole [facility] Start: 11-12-2021 Encounter for genera l adult medical examination without abnormal findings DR EVAN GILLESPIE [facility] Start: 11-11-2021 End: 11-12-[address] EVAN GILLESPIE Facility: Start: 11-11-2021 End: 11-12-2021 Encounter for general adult medical examination without abnormal findings DR EVAN GILLESPIE Facility:[facility] Start: 09-20-2021 End: 09-21-2021 ambulatory Cameron Singleton Facility:[facility] Start: 09-10-2020 End: 09-11-2020 Evaluation and management of inpatient SR EVAN GILLESPIE [facility] Start: 09-10-2020 End: 09-11-2020 Evaluation and management of inpatient Magdaleno H. Santosh Work Phone: [facility] Comment on above: Right leg weakness ( Primary Dx); Protruded lumbar disc; Postoperative pain Procedures Date Procedure Procedure Detail Performing Clinician Start: 08-25-2024 Hemoglobin glycosylated a1c Mela Daily ENGINEERING PROGRAM MANAGER Work Phone: Start: 05-19-2024 MLR HEMOGLOBIN A1C Mela Daily ENGINEERING PROGRAM MANAGER Work Phone: Start: 09-30-2023 Mammography Mela veloz ENGINEERING PROGRAM MANAGER Work Phone: Start: 09-11-2020 Fluoroscopy during operation [...] Work Phone: Start: 09-10-2020 COVID-19 Celsa Hardy Nancy hinojosa Work Phone: Start: 09-10-2020 Ecg routine ecg [...] Phone: Start: 09-21-2012 Colonoscopy Mela Elda veloz ENGINEERING PROGRAM MANAGER Work Phone: Plan of Treatment Date Care Activity Detail Author Start: 06-02-2026 Glaucoma screening Diabetes: R etinopathy Screening [facility] Start: 11-28-2024 End: 11-28-2024 Patient encounter procedure 11/28/2024 8:35 AM EDT Office Visit [facility] [address] [place] [address] Zaida Flores MD [address] [place] [address] [facility] Start: 11-23-2024 Hemoglobin A1c measurement Diabetes: Hemoglobin A1C [facility] Start: 11-21-2024 Screening for malign ant neoplasm of cervix Cervical Cancer Screening [facility] Comment on above: Postponed from 06/01 (Patient Refused) Start: 11-21-2024 Screening for malign ant neoplasm of colon Colorectal Cancer Screening [facility] Comment on above: Postponed from 06/01 (Patient Refused) Start: 09-30-2024 Screening for malign ant neoplasm of breast Mammogram [facility] Start: 09-26-2024 Urine screening for protein Diabetes: Urine Protein Screening [facility] Start: 08-25-2024 End: 08-25-2025 CBC W Auto Differential panel - Blood CBC and differential Lab Routine Tobacco dependence Expected: 08/25/2024 (Approximate), Expires: 08/25/2025 [facility] Comment on above: Expected: 08/25/2024 (Approximate), Expires: 08/25/2025 Start: 08-25-2024 End: 08-25-2025 Comprehensive metabolic 2000 panel - Serum or Plasma Comprehensive metabolic panel Lab Routine Essential hypertension (CMS/HCC) Type 2 diabetes mellitus without complication, without long-term current use of insulin (CMS/HCC) Expected: 08/25/2024 (Approximate), Expires: 08/25/2025 [facility] Comment on above: Expected: 08/25/2024 (Approximate), Expires: 08/25/2025 Start: 08-25-2024 End: 08-25-2025 Lipid 1996 panel - Serum or Plasma Lipid panel Lab Routine Type 2 diabetes mellitus without complication, without long-term current use of insulin (CMS/HCC) Expected: 08/25/2024 (Approximate), Expires: 08/25/2025 [facility] Comment on above: Expected: 08/25/2024 (Approximate), Expires: 08/25/2025 Start: 08-25-2024 End: 10-26-2025 MG Breast - bilateral Screening Bilateral screening mammogram Imaging Routine Encounter for screening mammogram for malignant neoplasm of breast Expected: 08/25/2024 (Approximate), Expires: 10/26/2025 [facility] Work Phone: Comment on above: Expected: 08/25/2024 (Approximate), Expires: 10/26/2025 Start: 08-25-2024 End: 08-25-2025 Microalbumin/Creatinine panel in random Urine Microalbumin / creatinine, urine ratio Lab Routine Essential hypertension (CMS/HCC) Type 2 diabetes mellitus without complication, without long-term current use of insulin (CMS/HCC) Expected: 08/25/2024 (Approximate), Expires: 08/25/2025 [facility] Comment on above: Expected: 08/25/2024 (Approximate), Expires: 08/25/2025 Start: 08-25-2024 End: 08-25-2025 Urinalysis complete panel - Urine Urinalysis with reflex microscopic (clean catch) Lab Routine Essential hypertension ([facility]) Type 2 diabetes mellitus without complication, without long-term current use of insulin ([facility]) Tobacco dependence Expected: 08/25/2024 (Approximate), Expires: 08/25/2025 [facility] Comment on above: Expected: 08/25/2024 (Approximate), Expires: 08/25/2025 Start: 08-25-2024 End: 08-25-2024 Patient encounter procedure [facility] Comment on above: Essential hypertensi on ([facility]) (Primary Dx); Type 2 diabetes mellitus without complication, without long-term current use of insulin ([facility]); Overweight (BMI 25.0-29.9); Tobacco dependence; Colon cancer screening; Encounter for screening mammogram for malignant neoplasm of breast; Mixed hyperlipidemia ([facility]) Start: 08-21-2024 Screening for malign ant neoplasm of cervix Cervical Cancer Screening [facility] Comment on above: Postponed from 06/01 (Other Medical Reasons) Start: 07-22-2024 Glaucoma screening Diabetes: R etinopathy Screening [facility] Comment on above: Postponed from 06/01 (Other Medical Reasons) Start: 07-21-2024 Influenza vaccination Influenza Vacc ine (#1) [facility] Comment on above: Postponed from 05/22 (Patient Does Not Have Time) Start: 05-26-2024 End: 05-26-2024 Patient encounter procedure [facility] Comment on above: Type 2 diabetes milana itus without complication, without long- term current use of insulin ([facility]) Start: 05-19-2024 Hemoglobin A1c measurement Diabetes: Hemoglobin A1C [facility] Start: 01-07-2024 End: 01-07-2024 Patient encounter procedure 01/07/2024 9:40 AM EDT Office Visit [facility] [address] [place] [address] Mela Daily, ENGINEERING PROGRAM MANAGER [address] [place] [address] [facility] Start: 11-20-2023 Screening for malign ant neoplasm of cervix Cervical Cancer Screening [facility] Comment on above: Postponed from 06/01 (Other Medical Reasons) Start: 11-20-2023 Screening for malign ant neoplasm of colon Colorectal Cancer Screening [facility] Comment on above: Postponed from 06/01 (Other Medical Reasons) Start: 11-10-2023 End: 11-10-2023 Patient encounter procedure 11/10/2023 8:30 AM EST Office Visit [facility] [address] [place] [id number] Zaida Flores MD [address] [place] [address] [facility] Start: 09-21-2022 Screening for malign ant neoplasm of colon [facility] Start: 08-29-2022 Hemoglobin A1c measurement Diabetes: Hemoglobin A1C [facility] Start: 09-24-2020 End: 09-24-2020 Office Visit 09/24/2020 Office Visit Neurosurgery Magdaleno Rios MD [address] [facility] [facility], [address] [place] [address] [facility] Start: 05-22-2020 Influenza vaccination Flu vaccine (# 1) [place], [place] Start: 2011 Screening for malign ant neoplasm of breast Breast cancer screen [place], [place] Start: 2011 Screening for malign ant neoplasm of colon Colon cancer screen colonoscopy [place], [place] Start: 2011 Shingles Vaccine (1 of 2) Shingles Vaccine (1 of 2) [place] Start: 2001 Diabetes screen Diabetes screen [place], [place] Start: 2001 Lipid panel Lipid screen [place], [place] Start: 1991 Screening for malign ant neoplasm of cervix [facility] Start: 1982 Screening for malign ant neoplasm of cervix [facility] Start: 1980 DTaP/Tdap/Td vaccine (1 - Tdap) DTaP/Tdap/Td vaccine (1 - Tdap) [place] Start: 1980 Urine screening for protein Diabetes: Urine Protein Screening [facility] Start: 1976 HIV screening HIV screen [place], [place] Start: 1971 Glaucoma screening Diabetes: R etinopathy Screening [facility] Start: 1961 Hepatitis C screening Hepatitis C sc reen [place] [place] Start: 1960 Screening for malign ant neoplasm of colon [facility] EKG 12 Lead - Chest Pain EKG 12 Lead - Chest Pain ECG STAT 09/10/2020 4:45 PM EST [place] Oxygen therapy [[facility] Data Set] Initiate Oxygen Therapy Protocol Respiratory Care Routine Daily until discontinued starting 09/10/2020 [place] Comment on above: Daily until disconti nued starting 09/10/2020 Surgical Pathology Surgical Path ology Lab Routine Release Upon Ordering for 1 Occurrences starting 09/11/2020 [place] Comment on above: Release Upon Orderin g for 1 Occurrences starting 09/11/2020 Immunizations Immunization Date Immunization Notes Care Provider Sanna lamb 07-08-2024 influenza, injectabl e, madin griffin canine kidney, preservative free Mela Aichholz ENGINEERING PROGRAM MANAGER Work Phone: [facility] 09-19-2023 influenza, injectabl e, quadrivalent, preservative free Mela Aichholz ENGINEERING PROGRAM MANAGER Work Phone: [facility] 09-19-2023 influenza virus vacc ine, unspecified formulation Mela Aichholz ENGINEERING PROGRAM MANAGER Work Phone: [facility] 09-04-2021 influenza, injectabl e, quadrivalent, preservative free Mela Aichholz ENGINEERING PROGRAM MANAGER Work Phone: [facility] 11-06-2020 pneumococcal polysaccharide vaccine, 23 valent Mela Aicrajatz ENGINEERING PROGRAM MANAGER Work Phone: [facility] 06-28-2020 influenza, injectabl e, quadrivalent, preservative free Mela Aichholz ENGINEERING PROGRAM MANAGER Work Phone: [facility] 08-31-2018 Influenza, injectabl e, Madin [place] Canine Kidney, preservative free, quadrivalent Mela Aichholz ENGINEERING PROGRAM MANAGER Work Phone: [facility] Payers Date Payer Category Payer [employer] [id number] 2015 Unknown [facility] [id number] 2015- [phone] [id number] [place], [place] [address] [id number] 1961 Unknown [id number] 2.16.840.1.360528.3.579. 2.182 1961 Unknown [id number] 2.16.840.1.765522.3.579. 2.727 1961 Unknown [id number] 2.16.840.1.965995.3.579. 2.727 1961 Unknown [id number] 2.16.840.1.158667.3.579. 2.593 1961 Unknown [id number] 2.16.840.1.975552.3.579. 2.593 1961 Unknown [id number] 2.16.840.1.791932.3.579. 2.1259 1961 Unknown [id number] 2.16.840.1.608478.3.579. 2.9 1961 Unknown [id number] 2.16.840.1.375904.3.579. 2.9 1961 Unknown [id number] 2.16.840.1.221435.3.579. 2.9 1961 Unknown [id number] 2.16.840.1.996845.3.579. 2.1259 1961 Unknown [id number] 2.16.840.1.910430.3.579. 2.9 1961 Unknown [id number] 2.16.840.1.017223.3.579. 2.1259 1959 Unknown [id number]. [id number] Social History Date Type Detail Facility Start: 09-11-2020 End: 01-07-2024 Tobacco smoking status NHIS Former smoker [facility] End: 09-21-2022 History of tobacco use Cigarette Smoker [place] Start: 09-11-2020 End: 08-25-2023 Cigarettes smoked current (pack per day) - Reported [facility] Start: 09-11-2020 Tobacco use and exposure Never used [place] Start: 09-11-2020 Alcohol intake Lifetime non-d shobha (finding) [place] Start: 09-10-2020 History SDOH Alcohol Frequency 1 [place] Start: 1960 Sex Assigned At Not on file [place] Exposure to SARS-CoV -2 (event) Not sure [place] Tobacco smoking status No Smokin g Status Entered [facility] Start: 08-25-2023 End: 11-30-2023 Sex Assigned At Female [facility] Start: 08-25-2023 Tobacco smoking stat us VAIS Smokes tobacco daily [facility] Start: 10-05-2023 End: 05-26-2024 Alcohol intake Current drinker of alcohol (finding) [facility] Within the last year , have you been afraid of your partner or ex-partner? No [facility] Do you belong to any clubs or organizations such as rastafari groups, unions, fraternal or athletic groups, or [...] Equipment Identifier Dates Daily Use as instructed [id number] Start: 01-07-2024 End: 01-06-2025 1 each Daily [id number] Start: 01-07-2024 End: 08-25-2024 Daily Use as instructed [id number] Start: 08-25-2024 End: 08-25-2025 1 each Daily [id number] Start: 08-25-2024 Clinical Notes 05-26-2024 to 08-25-2024 Mela Daily NP - 08/25/2024 9:33 AM NANDA SWEENEY 08/25/2024 9:00 AM Dania Daily NP - [...] being taken. She does not see a laboratory animal care veterinarian.Eye exam is current. SUBJECTIVE: MEDICATIONS: Current Outpatient [...] History: Procedure Laterality Date COLONOSCOPY W/ BIOPSIES 2013 Colonic polyps, Hemorrhoids DILATION AND CURETTAGE 2002 [...] complication, without long-term current use of insulin ([facility]) - Primary Check blood sugars daily, notify [...] Colon cancer screening Was referred to dr bgaley, to date no scope completed Encourage pt [...] of the risks of continued smoking: stroke, SD, all forms of cancer, lung disease, and [...] Colon cancer screening Was referred to dr bagley, to date no scope completed Encourage pt to get this scheduled Associated Problem(s): Mixed hyperlipidemia (CMS/HCC) Is on atorvastatin Check labs yearly and prn dose changes Associated Problem(s): Encounter for screening mammogram for malignant neoplasm of breast Due 09/2024 Will order Associated Problem(s): Tobacco dependence 1/2 ppd The patient has been advised of the risks of continued smoking: stroke, SD, all forms of cancer, lung disease, and [...] complication, without long-term current use of insulin ([facility]) Check blood sugars daily, notify if <70 [...] farxiga A1c 6.1% Associated Problem(s): Essential hypertension ([facility]) Please check blood pressure daily and record DASH diet Limit caffeine Take medication as directed Contact office if chest pain, pressure, dizziness, shortness of breath, swelling legs Recommend slow position changes Current meds: lisinopril and propranolol, did not take yet this morning documented in this encounter [facility] 08-25-2024 Instructions Mela Daily NP - 08/25/2024 9:00 AM EST A1c 6.1% great aristides, After 09/21/24: mammogram in September I will fax order to [facility] November appt we will talk about PAP smear and Colon cancer screening Also order of fasting labs documented in this encounter [facility] 05-26-2024 History of Presen t illness Narrative Associated Problem(s): Tobacco dependence The patient has been advised of the risks of continued smoking: stroke, SD, all forms of cancer, lung disease, and [...] farxiga at 5mg daily #3 samples: Lot [id number], exp 01/18/26 Non specific rash from Jardiance, unsure if this is unique to this, or class related. Will trial Farxiga, if rash returns stop immediately. If tolerating ok, then can poultry picking machine tender script Associated Problem(s): Essential hypertension (CMS/HCC) Will [...] on both sides Colonic polyp 2012 Diabetes ([facility]) Diabetes mellitus ([facility]) Fibroids 2008 Hemorrhoids 2012 High cholesterol (CMS/HCC) Hypertension (CMS/[facility]) Obesity (BMI 30-39.9) 08/25/2023 Past Surgical History: [...] farxiga at 5mg daily #3 samples: Lot [id number], exp 01/18/26 Non specific rash from Jardiance, unsure if this is unique to this, or class related. Will trial Farxiga, if rash returns stop immediately. If tolerating ok, then can poultry picking machine tender script Relevant Medications metFORMIN (Glucophage) 500 MG tablet dapagliflozin (Farxiga) 5 MG Essential hypertension (CMS/HCC) - Primary Will continue dose of lisinopril at 30mg daily Fu on blood pressure in 3 months Continue with steady weight loss Overweight (BMI 25.0-29.9) Tobacco dependence The patient has been advised of the risks of continued smoking: stroke, SD, all forms of cancer, lung disease, and . Options for quitting smoking include: cold turkey, hypnosis, acupuncture, nicotine replacement meds (gum, lozenges, and patches), Buproprion, and Varenicline. At this time pt is encouraged to evaluate their goals for wanting to quit smoking, and reach out to provider when ready to start this process documented in this encounter [facility] Evaluation + Plan note No data available for this section [facility] Evaluation note Diagnosis Mixed hyperlipidemia (CMS/HCC)- Primary Mixed hyperlipidemia documented in this encounter [facility] note* Diagnosis Type 2 [...] Unspecified essential hypertension [facility] [...] (CMS/HCC) Mixed hyperlipidemia documented in this encounter [facility]* Diagnosis Type 2 [...] Obesity (BMI 30-39.9) documented in this encounter [facility]* Diagnosis Essential hypertension (CMS/HCC) Unspecified essential hypertension documented in this encounter [facility]* Diagnosis Essential hypertension ([facility]/HCC)- Primary Unspecified essential hypertension Type 2 diabetes mellitus without complication, without long-term current use of insulin (CMS/HCC) Overweight (BMI 25.0-29.9) Overweight Tobacco dependence Tobacco use disorder [facility] No data available for this section [facility] data available for this section [facility] Discharge Instructions * Instructions* Magdaleno Rois MD - 09/11/2020 medication given may have [...] your physician 11) Call your doctor at [phone] for an appointment (or follow up as [...] call OFFICE. The 24- hour phone is [phone] 13) If you are unable to contact [...] Agents on File Name Relationship Healthcare Agent [facility] Manuel Dunne Spouse Primary [...] Weakness of right leg Magdaleno Rios MD [address], [address] [place] [address] [facility] Reason Comments Med Refill Reason Onset Date [...] section and content) DATE CREATED AUTHOR 09/13/2020 [facility] DATE CREATED AUTHOR AUTHOR'S ORGANIZ ATION 10/21/2021 [facility] dical Specialist DATE CREATED AUTHOR AUTHOR'S ORGANIZ ATION 06/02/2022 [facility] DATE CREATED AUTHOR AUTHOR'S ORGANIZ ATION 09/12/2022 [facility] DATE CREATED AUTHOR AUTHOR'S ORGANIZ ATION 12/01/2024 [facility] dical Specialists EPIC Care Team (unrecognized sect ion and content) Photocomposition Keyboard Operator Relationship Specialty Start Date End Date Jose Powers MD PCP - General Family Medicine 08/18/23 Mela Daily NP [address] [place] [address] Nurse Practitioner Family Medicine 08/18/23 [employer]ocomposition Keyboard Operator Relationship Specialty Start Date End Date Jose Powers MD [address] [place] [address] PCP - General Family Medicine 08/18/23 Mela Daily NP [address] [place] [address] PCP - [employer] 12/21/23 Mela Daily NP [address] [place] [address] Nurse Practitioner Family Medicine 08/18/23 Photocomposition Keyboard Operator Relationship Specialty Start Date End Date Jose Powers MD [address] [place] [address] PCP - General Family Medicine 08/18/23 Mela Daily NP [address] [place] [address] PCP - [employer] 12/21/23 Mela Daily NP [address] [place] [address] Nurse Practitioner Family Medicine 08/18/23 [employer]ocomposition Keyboard Operator Relationship Specialty Start Date End Date Jose Powers MD [address] [place] [address] PCP - General Family Medicine 08/18/23 Mela Daily NP [address] [place] [address] PCP - [employer] 12/21/23 Mela Daily NP [address] [place] [address] Nurse Practitioner Family Medicine 08/18/23 [employer]ocomposition Keyboard Operator Relationship Specialty Start Date End Date Jose Powers MD [address] [place] [phone] PCP - General Family Medicine 08/18/23 Mela Daily NP [address] [place] [address] PCP - [employer] 12/21/23 Mela Daily NP [address] [place] [address] Nurse Practitioner Family Medicine 08/18/23 [employer]ocomposition Keyboard Operator Relationship Specialty Start Date End Date Jose Powers MD [address] [place] [address] PCP - General Family Medicine 08/18/23 Mela Daily NP [address] [place] [address] PCP - [employer] 12/21/23 Mela Daily NP [address] [place] [address] Nurse Practitioner Family Medicine 08/18/23 Photocomposition Keyboard Operator Relationship Specialty Start Date End Date Jose Powers MD [address] [place] [address] PCP - General Family Medicine 08/18/23 Mela Daily NP [address] [place] [address] PCP - [employer] 12/21/23 Mela Daily NP [address] [place] [address] Nurse Practitioner Family Medicine 08/18/23 Photocomposition Keyboard Operator Relationship Specialty Start Date End Date Jose Powers MD [address] [place] [address] PCP - General Family Medicine 08/18/23 Mela Daily NP [address] [place] [address] PCP - [employer] 12/21/23 Mela Daily NP [address] [place] [address] Nurse Practitioner Family Medicine 08/18/23 FOR RECORDS [...] BE BASED ON THE PRIMARY CLINICAL RECORDS. [facility] [employer] [facility]. provides no warranty or guarantee of the accuracy or completeness of information in this document.
[2024-12-12 08:44] LABS: Basophils Percent Auto 0.5 % (0.2-2.0); Eosinophils Absolute Auto 0.1 10^3/uL (0.0-0.7); Eosinophils Percent Auto 0.9 % (0.9-7.0); Hematocrit 44.2 % (36.0-48.0); Immature Granulocytes Abs Auto 0.01 10^3/uL (0.00-0.03); Immature Granulocytes Pct Auto 0.2 % (0.0-0.5); Lymphocytes Absolute Auto 2.4 10^3/uL (1.2-3.8); Lymphocytes Percent Auto 42.6 % (20.5-60.0); Mean Corpuscular HGB Conc 36.2 g/dL (29.9-35.2); Mean Corpuscular Hemoglobin 32.8 pg (26.7-34.0); Mean Corpuscular Volume 90.6 fL (81.0-99.0); Mean Platelet Volume 10.7 fL (9.5-13.5); Monocytes Absolute Auto 0.3 10^3/uL (0.3-0.8); Monocytes Percent Auto 5.8 % (1.7-12.0); Neutrophils Absolute Auto 2.9 10^3/uL (1.4-6.5); Platelet Count 192 10^3/uL (150-450); Red Blood Count 4.88 10^6/uL (4.20-5.40); Red Cell Distribution Width 12.3 % (11.0-15.0); White Blood Count 5.7 10^3/uL (4.0-11.0)
[2024-12-12 08:55] LABS: Bilirubin Urine NEGATIVE (NEGATIVE); Blood Urine NEGATIVE (NEGATIVE); Clarity Urine CLEAR (CLEAR); Color Urine YELLOW (YELLOW); Glucose Urine UA >=1000 mg/dL (NEGATIVE); Ketones Urine NEGATIVE (NEGATIVE); Leukocyte Esterase Urine NEGATIVE (NEGATIVE); Nitrite Urine NEGATIVE (NEGATIVE); Protein Urine 100 mg/dL (NEG/TRACE); Specific Gravity Urine 1.025 (1.005-1.025); Urobilinogen Urine 0.2 EU/dL (0.2-1.0); pH Urine 5.5 (5.0-9.0)
[2024-12-12 08:58] LABS: Urine Microscopic Indicated YES
[2024-12-12 09:08] LABS: Bacteria Urine NONE SEEN #/HPF (NONE SEEN); Cast Seen? NONE SEEN #/LPF (NONE SEEN); Crystals Seen? None Seen #/HPF (None Seen); Mucus Urine NONE SEEN (NONE SEEN); RBC Urine 0-2 #/HPF (0-2); Squamous Epithelial Cell Urine FEW #/LPF (NONE/RARE); WBC Urine 0-2 #/HPF (NONE SEEN)
[2024-12-12 09:30] LABS: Creatinine Urine Random 141.57 mg/dL (20.00-300.00)
[2024-12-12 09:31] LABS: Alanine Aminotransferase 61 U/L (14-59); Albumin Globulin Ratio 1.2; Alkaline Phosphatase 104 U/L (46-116); Anion Gap 11.3; Aspartate Amino Transferase 28 U/L (15-37); BUN Creatinine Ratio 14.6; Bilirubin Total 0.5 mg/dL (0.2-1.0); Calcium 9.1 mg/dL (8.5-10.1); Carbon Dioxide 31.9 mmol/L (21.0-32.0); Chloride 103 mmol/L (98-107); Chol HDL Ratio 4.3; Cholesterol 178 mg/dL (<=200); Estimated GFR (African America >60 (>=60 mL/min/1.73m^2); Estimated GFR (Non-African Ame >60 (>=60 mL/min/1.73m^2); Globulin 3.3 g/dL; Glucose 148 mg/dL (74-106); HDL Cholesterol 41 mg/dL (40-60); Potassium 4.2 mmol/L (3.5-5.1); Sodium 142 mmol/L (136-145); Total Protein 7.3 g/dL (6.4-8.2); Triglycerides 282 mg/dL (<=150); VLDL CHOLESTEROL 56.4 mg/dL
[2024-12-12 09:55] LABS: Microalbum Creatinine Ratio Ur 525.5 mg/g (0.0-29.9); Microalbumin Urine Random 74.4 mg/dL (<=30.0)
== END 2024-12-12 08:26 | disposition home or self-care (01) ==
LOC: LAB 08:26
PROVIDERS: PCP Nurse Practitioner; Visit Provider Nurse Practitioner
DX: E11.9 Type 2 diabetes mellitus without complications (principal); F17.200 Nicotine dependence, unspecified, uncomplicated; I10 Essential (primary) hypertension
CPT/HCPCS: 36415; 80053; 80061; 81001; 82043; 82570; 85025

== ENCOUNTER 2025-03-16 08:59 | Outpatient (OUT) | payer BC, SELFPAY ==
--- OUTSIDE RECORDS SUMMARY | 2025-03-15 16:00 | XMS_ITS | Encounter Summary ---
Author Organization [facility] Address [address] [facility] [place] [address] Care Team Providers Care Area Supervisor Name Role Phone Jose Powers MD Primary Care Provider [phone] Mela Daily TRACE CLERK Unavailable [phone] Mela Daily TRACE CLERK Unavailable [phone] Reason for Visit * Reason Comments Diabetes Encounter Details Date Type Department Care Team (Late st Contact Info) Description 03/15/2025 4:00 PM EDT Office Visit [facility] [address] [place] [phone] Mela Daily NP [address] [place] [phone] Left foot pain (Primary Dx); Essential hypertension ; Obesity (BMI 30-39.9); Type 2 diabetes mellitus without complication, without long-term current use of insulin (HCC); Type 2 diabetes mellitus with diabetic nephropathy (HCC); Type 2 diabetes mellitus with other specified complication (HCC); Mixed hyperlipidemia Social History Tobacco Use Types Packs/Day Years Used Date Smoking Tobacco: Former Cigarettes Q uit: 2022 Smokeless Tobacco: Never Comments:10-19 cigarettes/da y Alcohol Use Standard Drinks/Week Comments Yes 2 (1 standard drink = 0.6 oz pure alcohol) 1-2 drinks monthly or less, caffeine 1-2 cups per day Humiliation, Afraid, Rape, and Kick questionnair e Answer Date Recorded Within the last year, have y ou been afraid of your partner or ex-partner? No 08/25/2023 Within the last year, have y ou been humiliated or emotionally abused in other ways by your partner or ex-partner? No Within the last year, have y ou been kicked, hit, slapped, or otherwise physically hurt by your partner or ex-partner? No 08/25/2023 Within the last year, have y ou been raped or forced to have any kind of sexual activity by your partner or ex-partner? No 08/25/2023 Social Connection and Isolat ion Panel [NHANES] Answer Date Recorded In a typical week, how many times do you talk on the phone with family, friends, or neighbors? More than three times a week 08/25/2023 How often do you get togethe r with friends or relatives? Three times a week 08/25/2023 How often do you attend chur or druze services? More than 4 times per year 08/25/2023 Do you belong to any clubs o r organizations such as scientology groups, unions, fraternal or athletic groups, or school groups? Yes 08/25/2023 How often do you attend meet ings of the clubs or organizations you belong to? More than 4 times per year 08/25/2023 Are you , , di vorced, , never , or living with a partner? 08/25/2023 AUDIT-C Answer Date Recorded Q1: How often do you have a drink containing alc ohol? Monthly or less 08/25/2023 Q2: How many drinks containi ng alcohol do you have on a typical day when you are drinking? 1 or 2 08/25/2023 Q3: How often do you have si x or more drinks on one occasion? Less than monthly 08/25/2023 Overall Financial Resource Strain (CARDIA) Answe r Date Recorded How hard is it for you to pa y for the very basics like food, housing, medical care, and heating? Not hard at all 08/25/2023 [facility] [place] [facility]at [facility] - Occupational Stress Questionnaire Answer Date Recorded Do you feel stress - tense, restless, nervous, or anxious, or unable to sleep at night because your mind is troubled all the time - these days? Not at all 08/25/2023 Exercise Vital Sign Answer Date Recorde d On average, how many days pe r week do you engage in moderate to strenuous exercise (like a brisk walk)? 3 days 08/25/2023 On average, how many minutes do you engage in exercise at this level? 40 min 08/25/2023 Hunger Vital Sign Answer Date Recorded Within the past 12 months, y ou worried that your food would run out before you got the money to buy more. Never true 08/25/20 23 Within the past 12 months, t he food you bought just didn't last and you didn't have money to get more. Never true 08/25/2023 PRAPARE - Transportation Answer Date Re corded In the past 12 months, has l ack of transportation kept you from medical appointments or from getting medications? No 01/2023 In the past 12 months, has l ack of transportation kept you from meetings, work, or from getting things needed for daily living? No 08/25/2023 Housing Stability Vital Sign Answer Pito e Recorded In the last 12 months, was t here a time when you were not able to pay the mortgage or rent on time? No 08/25/2023 Number of Places Lived in the Last Year Not on f ile 08/25/2023 In the last 12 months, was t here a time when you did not have a steady place to sleep or slept in a long-term (including now)? No 08/25/2023 Comments No Sex and Gender Information Value Date Recorded Sex Assigned at Not on file Legal Sex Female 6:56 PM EDT Gender Identity Not on file Sexual Orientation Not on file documented as of this encounter Last Filed Vital Signs Vital Sign Reading Time Taken Comments Blood Pressure 132/80 03/15/2025 4:02 PM EDT Pulse 83 03/15/2025 4:02 PM EDT Temperature 36.9 C (98.5 F) 03/15/2025 4:02 PM EDT Respiratory Rate 18 03/15/2025 4:02 PM EDT Oxygen Saturation 96% 03/15/2025 4:02 PM EDT Inhaled Oxygen Concentration - - Weight 79.9 kg (176 lb 3.2 oz) 03/15/2025 4:02 P M EDT Height - - Body Mass Index 30.24 01/04/2025 9:27 AM EDT documented in this encounter Patient Instructions * Patient Instructions* Mela Daily NP - 03/15/2025 4:00 PM EDT Check xray May use indomethacin as needed for pain, take with food documented in this encounter Progress Notes * Mela Daily NP - 03/15/2025 4:35 PM EDTAssociated Problem(s): Left foot pain Check xray Indomethacin prn Discussed DD: gout, DN, stress fracture Keep fu appt * NANDA BANKS - 03/15/2025 4:00 PM EDT Left foot pain-started about 2 weeks ago shooting pain to the toes. * Mela Daily NP - 03/15/2025 4:00 PM EDT Images from the original note were not included. Ellen Dunne is a 64 y.o. female presents with chief complaint of Diabetes HPI: Left foot pain: X2 weeks, shooting pain, no trauma, +swelling pain with walking , no ankle pain, noswelling to leg No hx of gout, +family hx gout Has DM, takes her meds SUBJECTIVE: MEDICATIONS: Current Outpatient Medications Medication Instructions amLODIPine (NORVASC) 5 mg, Oral, Daily aspirin 81 mg, Daily atorvastatin (LIPITOR) 40 mg, Oral, Nightly dapagliflozin (FARXIGA) 10 mg, Oral, Daily glucose blood (True Metrix Blood Glucose Test) test strip Daily Use as instructed indomethacin (INDOCIN) 25 mg, Oral, 3 times daily PRN, Take with food Lancets 30G misc 1 each, Does not apply, Daily lisinopril 30 mg, Oral, Daily metFORMIN (GLUCOPHAGE) 500 mg, Oral, 2 times daily with meals propranolol LA (INDERAL LA) 60 mg, Oral, [...] urinating, dysuria and frequency. Musculoskeletal: Positive for arthralgias. Negative for back pain, joint swelling and myalgias. Skin: Negative for rash and wound. Neurological: Negative for dizziness, tremors, seizures, syncope and headaches. Psychiatric/Behavioral: Negative for behavioral problems, self-injury and suicidal ideas. The patient is not nervous/anxious. Hematological: Does not bruise/bleed easily. Endocrine: Negative for polydipsia, polyphagia and polyuria. Allergic/Immunologic: Negative for environmental allergies and food allergies. PAST MEDICAL HISTORY Past Medical History: Diagnosis Date Arthritis Carpal tunnel syndrome on both sides Colonic polyp 2013 Diabetes mellitus (HCC) Fibroids 2009 Hemorrhoids 2013 High cholesterol Hypertension Obesity (BMI 30-39.9) 08/25/2023 Past Surgical History: Procedure Laterality Date BACK SURGERY COLONOSCOPY W/ BIOPSIES 2013 Colonic polyps, Hemorrhoids DILATION AND CURETTAGE 2002 HYSTERECTOMY Procedure:supracx. hysterectomy;Disease:fibroids SHOULDER ARTHROSCOPY 06/27/2022 L shoulder scope- [facility]TP SPINE SURGERY TRIGGER FINGER RELEASE TUBAL LIGATION VAGINAL DELIVERY x2 family history includes Coronary artery disease in her father; Stroke in her son. OBJECTIVE: Visit Vitals BP 132/80 (BP Location: Left arm, Patient Position: Sitting, BP Cuff Size: Adult long) Pulse 83 Temp 98.5 ??F (Temporal) Resp 18 Wt 176 lb 3.2 oz SpO2 96% BMI 30.24 kg/m?? OB Status Hysterectomy Smoking Status Former BSA 1.9 m?? Physical Exam Vitals and nursing note reviewed. [...] is normal. Breath sounds: Normal breath sounds. Musculoskeletal: General: Normal range of motion. Cervical back: Normal range of motion and neck supple. Comments: Left foot mild dorsal aspect of mid foot swelling, no erythema, no tenderness No open wounds, +DP/PT pulse No laxity noted Skin: General: Skin is warm and dry. Capillary Refill: Capillary refill takes 2 to 3 seconds. Findings: No rash. Neurological: General: No focal deficit present. Mental Status: She is alert and oriented to person, place, and time. Psychiatric: Mood and Affect: Mood normal. Behavior: Behavior normal. Thought Content: Thought content normal. Judgment: Judgment normal. ASSESSMENT AND PLAN: Follow up for Next scheduled follow-up. Problem List Items Addressed This Visit Type 2 diabetes mellitus without complication, without long-term current use of insulin ([facility]) Check blood sugars daily, notify if <70 or >200. Take medications (pills or insulin) as directed. Monitor for s/s of hypoglycemia (sweaty, dizziness, nausea, vomiting, or shakiness). Watch for increase in thirst, urination, or appetite. Inspect feet frequently monitoring for open wounds , andalso recommend yearly eye exam. Pt should attempt to remain as physically active as chronic conditions allow, as well as trying to follow a diet low in carbohydrates, and simple sugars. Current meds: asa, statin, metformin and farxiga A1c: 7.4% 03/15/25 6.8% 11/29/24 Relevant Medications dapagliflozin (Farxiga) 10 MG metFORMIN (Glucophage) 500 MG tablet Other Relevant Orders POCT glycosylated hemoglobin (Hb A1C) docked device (Completed) Essential hypertension - Primary Please check blood pressure daily and record DASH diet Limit caffeine Take medication as directed Contact office if chest pain, pressure, dizziness, shortness of breath, swelling legs Recommend slow position changes Current meds: lisinopril, amlodipine, and propranolol Relevant Medications amLODIPine (Norvasc) 5 MG tablet lisinopril 30 MG tablet propranolol LA (Inderal LA) 60 MG 24 hr capsule Obesity (BMI 30-39.9) Discussed with patient their BMI (actual, verses recommended). We have also discussed lifestyle modifications: attempts to perform physical activity as chronic conditions allow, also to monitor dietary intake: increasing protein/fruits/veggies and lowering carb intake (unless contraindicated). Limit sodas, juices, and sugary drinks. We did discuss that if she commits to exercise and weight loss, that this could also help lower herBP and blood sugar in an effort to decrease pill burden, I do empathize with her regarding this, however at this point we cannot take away any pills Mixed hyperlipidemia Relevant Medications atorvastatin (Lipitor) 40 MG tablet Type 2 diabetes mellitus with diabetic nephropathy (HCC) Type 2 diabetes mellitus with other specified complication (HCC) Nephropathy, HLD Left foot pain Check xray Indomethacin prn Discussed DD: gout, DN, stress fracture Keep fu appt Relevant Medications indomethacin (Indocin) 25 MG capsule Other Relevant Orders XR foot 3+ views left * Mela Daily NP - 03/15/2025 7:24 AM EDTAssociated Problem(s): Type 2 diabetes mellitus with other specified complication (HCC) Nephropathy, HLD * Mela Daily NP - 03/15/2025 7:20 AM EDTAssociated Problem(s): Type 2 diabetes mellitus without complication, without long-term current useof insulin (HCC) Check blood sugars daily, notify if <70 or >200. Take medications (pills or insulin) as directed. Monitor for s/s of hypoglycemia (sweaty, dizziness, nausea, vomiting, or shakiness). Watch for increase in thirst, urination, or appetite. Inspect feet frequently monitoring for open wounds , andalso recommend yearly eye exam. Pt should attempt to remain as physically active as chronic conditions allow, as well as trying to follow a diet low in carbohydrates, and simple sugars. Current meds: asa, statin, metformin and farxiga A1c: 7.4% 03/15/25 6.8% 11/29/24 * Mela Daily NP - 03/15/2025 7:20 AM EDTAssociated Problem(s): Obesity (BMI 30-39.9) Discussed with patient their BMI (actual, verses recommended). We have also discussed lifestyle modifications: attempts to perform physical activity as chronic conditions allow, also to monitor dietary intake: increasing protein/fruits/veggies and lowering carb intake (unless contraindicated). Limit sodas, juices, and sugary drinks. We did discuss that if she commits to exercise and weight loss, that this could also help lower herBP and blood sugar in an effort to decrease pill burden, I do empathize with her regarding this, however at this point we cannot take away any pills * Mela Daily NP - 03/15/2025 7:20 AM EDTAssociated Problem(s): Essential hypertension Please check blood pressure daily and record DASH diet Limit caffeine Take medication as directed Contact office if chest pain, pressure, dizziness, shortness of breath, swelling legs Recommend slow position changes Current meds: lisinopril, amlodipine, and propranolol documented in this encounter Plan of Treatment Upcoming Encounters Date Type Department Care Team (Late st Contact Info) Description 04/04/2025 9:15 AM EDT Consult [facility] [address] [facility] [address] [place] [address] Alex Teran DO [address] [facility] [address] [place] [address] 04/10/2025 9:20 AM EDT Office Visit [facility] [address] [place] [address] Mela Daily NP [address] [place] [phone] 11/28/2025 8:35 AM EDT Office Visit [facility] [address] [place] [address] Zaida Saldivar MD [address] [place] [address] Scheduled Orders Name Type Priority Associated Diagnoses Orde r Schedule XR foot 3+ views left Imaging Routine Left foot pain Expected: 03/15/2025, Expires: 03/15/2026 documented as of this encounter Procedures Procedure Name Priority Date/Time Associated Diagnosis Comments POCT GLYCOSYLATED HEMOGLOBIN (HGB A1C) Routine 03/15/2025 4:17 PM EDT Type 2 diabetes mellitus without complication, without long-term current use of insulin (HCC) documented in this encounter Results * (ABNORMAL) POCT glycosylated hemoglobin (Hb A1C) docked device (03/15/2025 4:17 PM EDT) Hemoglobin A1C 7.4 Blood Venous blood specimen / Unknown 03/15/2025 4:17 PM EDT Mela Daily NP POINT OF CARE TEST ENTER/EDIT O RDERABLES Final Result documented in this encounter Visit Diagnoses Diagnosis Left foot pain- Primary Pain in soft tissues of limb Essential hypertension Unspecified essential hypertension Obesity (BMI 30-39.9) Type 2 diabetes mellitus without complication, without long-term current use of insulin (HCC) Type 2 diabetes mellitus with diabetic nephropathy (HCC) Type 2 diabetes mellitus with other specified complication (HCC) Mixed hyperlipidemia Mixed hyperlipidemia documented in this encounter Care Teams Area Supervisor Relationship Specialty Start Date End Date Jose Powers MD [address] [place] [phone] PCP - General Family Medicine 08/18/23 Mela Daily NP [address] [place] [phone] PCP - [facility] 12/21/23 Mela Daily NP [address] [place] [phone] Nurse Practitioner Family Medicine 08/18/23 documented as of this encounter
--- OUTSIDE RECORDS SUMMARY | 2025-03-16 09:06 | XMS_ITS | Encounter Summary ---
Author Organization [facility] Address [address] [facility] [place] [address] Care Team Providers Care French Translator Name Role Phone Jose Powers MD Primary Care Provider [phone] Mela Daily FINISHER MAP AND CHART Unavailable [phone] Mela Daily FINISHER MAP AND CHART Unavailable [phone] Encounter Details Date Type Department Care Team (Late st Contact Info) Description 03/15/2025 Bamboo flowsheet [facility] [address] [place] [phone] Mela Daily NP [address] [place] [phone] Social History Tobacco Use Types Packs/Day Years [...] How often do you attend chur or buddhism services? More than 4 times per year 08/25/2023 Do you belong to any clubs o r organizations such as confucianist groups, unions, fraternal or athletic groups, or [...] and heating? Not hard at all 08/25/2023 [facility] - Occupational Stress [...] place to sleep or slept in a long term (including now)? No 08/25/2023 Comments No Sex and Gender Information Value Date Recorded Sex Assigned at Not on file Legal Sex Female 6:56 PM EDT Gender Identity Not on file Sexual Orientation Not on file documented as of this encounter Plan of Treatment Upcoming Encounters Date Type Department Care Team (Late st Contact Info) Description 04/04/2025 9:15 AM EDT Consult [facility] [address] [facility] [address] [place] [address] Alex Teran DO [address] [facility] [address] [place] [address] 04/10/2025 9:20 AM EDT Office Visit [facility] [address] [place] [address] Mela Daily NP [address] [place] [phone] 11/28/2025 8:35 AM EDT Office Visit [facility] [address] [place] [phone] Zaida Saldivar MD [address] [place] [address] documented as of this encounter Visit Diagnoses Not on filedocumented in this encounter Care Teams French Translator Relationship Specialty Start Date End Date Jose Powers MD [address] [place] [address] PCP - General Family Medicine 08/18/23 Mela Daily NP [address] [place] [address] PCP - [facility] 12/21/23 Mela Daily NP [address] [place] [address] Nurse Practitioner Family Medicine 08/18/23 documented as of this encounter
--- OUTSIDE RECORDS SUMMARY | 2025-03-16 09:06 | XMS_ITS | Encounter Summary ---
Author Organization [facility] Address [address] [place] [address] Care Team Providers Care Ict Programmer Name Role Phone Jose Powers MD Primary Care Provider Mela Daily BUSINESS INVESTOR Unavailable [phone] Mela Daily BUSINESS INVESTOR Unavailable [phone] Encounter Details Date Type Department Care Team (Late st Contact Info) Description 01/04/2024 Orders Only [facility] [address] [place] [address] Mela Daily NP [address] [place] [address] Social History Tobacco Use Types Packs/Day Years Used Date Smoking Tobacco: Every Day Cigarettes Comments:10-19 cigarettes/da y Alcohol Use Standard Drinks/Week Comments Yes 0 (1 standard drink = 0.6 oz pure [...] How often do you attend chur or restorationism services? More than 4 times per year 08/25/2023 Do you belong to any clubs o r organizations such as jehovah's witness groups, unions, fraternal or athletic groups, or [...] and heating? Not hard at all 08/25/2023 [facility] - Occupational Stress [...] place to sleep or slept in a group home (including now)? No 08/25/2023 Comments Unknown Sex and Gender Information Value Date Recorded Sex Assigned at Not on file Legal Sex Female 6:56 PM EDT Gender Identity Not on file Sexual Orientation Not on file documented as of this encounter Plan of Treatment Upcoming Encounters Date Type Department Care Team (Late st Contact Info) Description 04/04/2025 9:15 AM EDT Consult [facility] [address] [facility] [address] [place] [phone] Alex Teran DO [address] [facility] [address] [place] [address] 04/10/2025 9:20 AM EDT Office Visit [facility] [address] [place] [address] Mela Daily NP [address] [place] [phone] 11/28/2025 8:35 AM EDT Office Visit [facility] [address] [place] [address] Zaida Saldivar MD [address] [place] [address] documented as of this encounter Procedures Procedure Name Priority Date/Time Associated Diagnosis Comments XR CHEST 1 VIEW Routine 01/03/2024 9:40 AM EDT ELECTROCARDIOGRAM REPORT Routine 024 9:02 AM EDT documented in this encounter Results * XR chest 1 view (01/03/2024 9:40 AM EDT) Anatomical Region Laterality Modality Chest Radiographic Tisha ging us Mela Daily BUSINESS INVESTOR IMG XR PROCEDURES Final Result * Electrocardiogram Report (01/03/2024 9:02 AM EDT) Mela Daily BUSINESS INVESTOR IN CLINIC/BEDSIDE ORDERABLES Fi nal Result documented in this encounter Visit Diagnoses Not on filedocumented in this encounter Care Teams Ict Programmer Relationship Specialty Start Date End Date Jose Powers MD [address] [place] [address] PCP - General Family Medicine 08/18/23 Mela Daily NP [address] [place] [address] PCP - [facility] 12/21/23 Mela Daily NP [address] [place] [address] Nurse Practitioner Family Medicine 08/18/23 documented as of this encounter
--- OUTSIDE RECORDS SUMMARY | 2025-03-16 09:06 | XMS_ITS | Clinical Summary ---
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 Name Role Phone Jose Powers MD Primary Care Provider [phone] AichMela duke TERADATA ARCHITECT Unavailable [phone] Aichholz Mela TERADATA ARCHITECT Unavailable [phone] Allergies Active Allergy Reactions Criticality Noted Date Comments Empagliflozin Rash Low 04/25/2024 Medications aspirin 81 MG EC tablet Take 81 mg by mouth Daily Active glucose blood (True Metrix Blood Glucose Test) test stripIndications:T ype 2 diabetes mellitus without complication, without long-term current use of insulin (HCC) Daily Use as instructed 100 each 4 11/30/19 026 Active amLODIPine (Norvasc) 5 MG tabletIndications: Essential hypertension Take 1 tablet (5 mg) by mouth Daily 90 tablet 1 03/15/20 025 Active atorvastatin (Lipitor) 40 MG tabletIndications: Mixed hyperlipidemia Take 1 tablet (40 mg) by mouth at bedtime 90 tablet 1 03/15/20 025 Active dapagliflozin (Farxiga) 10 MGIndications:Type 2 diabetes mellitus without complication, without long-term current use of insulin (HCC) Take 1 tablet (10 mg) by mouth Daily 90 tablet 1 03/15/20 025 Active lisinopril 30 MG tabletIndications: Essential hypertension Take 1 tablet (30 mg) by mouth Daily 90 tablet 1 03/15/20 025 Active metFORMIN (Glucophage) 500 MG tabletIndications: Type 2 diabetes mellitus without complication, without long-term current use of insulin ([facility]) Take 1 tablet (500 mg) by mouth in the morning and 1 tablet (500 mg) in the evening. Take with meals. 180 tablet 1 03/15/20 025 Active propranolol LA (Inderal LA) 60 MG 24 hr capsuleIndications :Essential hypertension Take 1 capsule (60 mg) by mouth Daily 90 capsule 1 03/15/20 25 025 Active indomethacin (Indocin) 25 MG capsuleIndications :Left foot pain Take 1 capsule (25 mg) by mouth 3 (three) times a day as needed for mild pain (pain) for up to 10 days Take with food 30 capsule 03/15/20 025 Active dapagliflozin (Farxiga) 10 MGIndications:Type 2 diabetes mellitus without complication, without long-term current use of insulin ([facility]) Take 1 tablet (10 mg) by mouth Daily 90 tablet 1 11/30/19 025 Discontinu ed(Reorder ) Lancets 30G miscIndications:Ty pe 2 diabetes mellitus without complication, without long-term current use of insulin ([facility]) 1 each Daily 100 each 3 11/30/19 025 metFORMIN (Glucophage) 500 MG tabletIndications: Type 2 diabetes mellitus without complication, without long-term current use of insulin ([facility]) Take 1 tablet (500 mg) by mouth in the morning and 1 tablet (500 mg) in the evening. Take with meals. 180 tablet 1 11/30/19 025 Discontinu ed(Reorder ) propranolol LA (Inderal LA) 60 MG 24 hr capsuleIndications :Essential hypertension Take 1 capsule (60 mg) by mouth Daily 90 capsule 1 11/30/19 025 Discontinu ed(Reorder ) atorvastatin (Lipitor) 40 MG tabletIndications: Mixed hyperlipidemia Take 1 tablet (40 mg) by mouth at bedtime 90 tablet 01/05/20 25 025 Discontinu ed(Reorder ) amLODIPine (Norvasc) 5 MG tabletIndications: Essential hypertension Take 1 tablet (5 mg) by mouth Daily 90 tablet 1 01/05/20 25 025 Discontinu ed(Reorder ) lisinopril 30 MG tabletIndications: Essential hypertension Take 1 tablet (30 mg) by mouth Daily 90 tablet 1 01/05/20 25 025 Discontinu ed(Reorder ) Active Problems Problem Noted Date Diagnosed Date Type 2 diabetes mellitus with diabetic nephropat hy 03/15/2025 Type 2 diabetes mellitus with other specified co mplication 03/15/2025 Assessment & Plan (03/15/2025 7:24 AM EDT): Nephropathy, HLD Left foot pain 03/15/2025 Assessment & Plan (03/15/2025 4:35 PM EDT): Check xray Indomethacin prn Discussed DD: gout, DN, stress fracture Keep fu appt Former smoker 01/04/2025 Colon cancer screening 11/29/2024 Assessment & Plan (11/29/2024 6:22 AM EDT): Was referred to dr bagley and saw him in office 11/30/23, never scheduled colonoscopy Mixed hyperlipidemia 09/28/2023 Assessment & Plan (01/04/2025 10:51 AM EDT): Trigs not at goal, we will increase her atorvastatin to 40mg recheck labs in 3 months Assessment & Plan (11/29/2024 6:19 AM EDT): Is on atorvastatin Check labs yearly and prn dose changes Assessment & Plan (08/25/2024 6:38 AM EST): Is on atorvastatin Check labs yearly and prn dose changes Assessment & Plan (02/18/2024 4:12 PM EDT): Great response with statin therapy Microalbuminuria 09/28/2023 Assessment & Plan (10/05/2023 10:07 AM EST): Started lisinopril Lumbar disc herniation 08/25/2023 Lumbar spondylosis 08/25/2023 Osteoarthritis of left acromioclavicular joint 1 10/26/2022 Other articular cartilage disorders, left should er 08/25/2023 Partial thickness rotator cuff tear 08/25/2023 Type 2 diabetes mellitus wit hout complication, without long-term current use of insulin 08/25/2023 Assessment & Plan (03/15/2025 4:17 PM EDT): Check blood sugars daily, notify if <70 [...] and farxiga A1c: 7.4% 03/15/25 6.8% 11/29/24 Assessment & Plan (11/29/2024 10:01 AM EDT): Check blood sugars daily, notify if <70 [...] meds: asa, statin, metformin and farxiga A1c: 6.8% 11/29/24 Assessment & Plan (08/25/2024 9:25 AM EST): Check blood sugars daily, notify if <70 [...] asa, statin, metformin and farxiga A1c 6.1% Assessment & Plan (05/26/2024 9:35 AM EDT): Metformin at 500mg BID A1c is at 6.5% However sugar ranges in the 160-180's Will trial a sample of farxiga at 5mg daily #3 samples: Lot [id number], exp 01/18/26 Non specific rash from Jardiance, unsure if this is unique to this, or class related. Will trial Farxiga, if rash returns stop immediately. 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 handlers script Assessment & Plan (04/25/2024 9:47 AM EDT): Rash from jardiance, Cannot tolerate max dose metfromin, is now tolerating BID at 500mg, sugars in 160's Will recheck A1c at end of April and consider addition of another medication pending A1c results Encourage physical activity as well Assessment & Plan (02/18/2024 3:28 PM EDT): Lower metfromin to 500mg BID, Add Jardiance 10mg daily, #4 samples Lot [id number], exp 09/2025 Assessment & Plan (01/07/2024 11:47 AM EDT): Increase metformin to 1000mg BID over the next 2 weeks Fu in 2 weeks Will check w insurance for GLP 1 Assessment & Plan (10/05/2023 10:07 AM EST): Refer to gang knife fish chopper Check blood sugars daily, notify if <70 [...] diet low in carbohydrates, and simple sugars. Assessment & Plan (08/25/2023 2:32 PM EST): Check sugars daily Freq foot checks and yearly eye exams Check labs Weight loss, increase activity Essential hypertension 08/25/2023 Assessment & Plan (03/15/2025 7:20 AM EDT): Please check blood pressure daily and record DASH diet Limit caffeine Take medication as directed Contact office if chest pain, pressure, dizziness, shortness of breath, swelling legs Recommend slow position changes Current meds: lisinopril, amlodipine, and propranolol Assessment & Plan (01/04/2025 10:47 AM EDT): Please check blood pressure daily and record DASH diet Limit caffeine Take medication as directed Contact office if chest pain, pressure, dizziness, shortness of breath, swelling legs Recommend slow position changes Current meds: lisinopril, amlodipine, and propranolol We did discuss her BP meds, the b kailey is actually for PAZ's, I did discuss with pt that while we could take this away, not sure if PAZ's will return or not and that adjustments may need to be made on current doses of other 2 meds She does not want to change at this time Assessment & Plan (11/29/2024 10:17 AM EDT): Please check blood pressure daily and record DASH diet Limit caffeine Take medication as directed Contact office if chest pain, pressure, dizziness, shortness of breath, swelling legs Recommend slow position changes Current meds: lisinopril and propranolol Add amlodipine 5mg daily Fu in 4 weeks Assessment & Plan (08/25/2024 9:25 AM EST): Please check blood pressure daily and record DASH diet Limit caffeine Take medication as directed Contact office if chest pain, pressure, dizziness, shortness of breath, swelling legs Recommend slow position changes Current meds: lisinopril and propranolol, did not take yet this morning Assessment & Plan (05/26/2024 9:20 AM EDT): Will continue dose of lisinopril at 30mg daily Fu on blood pressure in 3 months Continue with steady weight loss Assessment & Plan (04/25/2024 9:38 AM EDT): Not at goal, increase dose of monica to 30mg Fu in 4 weeks for recheck Assessment & Plan (02/18/2024 4:12 PM EDT): Borderline elevated, however will be adding jardiance so will see if improves Fu in 6 weeks Assessment & Plan (01/07/2024 11:46 AM EDT): Increase lisinopril to 20mg daily Fu in 2 weeks Assessment & Plan (10/05/2023 10:07 AM EST): No changes in med doses Assessment & Plan (08/25/2023 2:31 PM EST): At goal, no changes, consider MONICA Obesity (BMI 30-39.9) 08/25/2023 Assessment & Plan (03/15/2025 7:20 AM EDT): Discussed with patient their BMI (actual, verses recommended). We have also discussed lifestyle modifications: attempts to perform physical activity as chronic conditions allow, also to monitor dietary intake: increasing protein/fruits/veggies and lowering carb intake (unless contraindicated). Limit sodas, juices, and sugary drinks. We did discuss that if she commits to exercise and weight loss, that this could also help lower her BP and blood sugar in an effort to decrease pill burden, I do empathize with her regarding this, however at this point we cannot take away any pills Assessment & Plan (01/04/2025 10:50 AM EDT): Discussed with patient their BMI (actual, verses recommended). We have also discussed lifestyle modifications: attempts to perform physical activity as chronic conditions allow, also to monitor dietary intake: increasing protein/fruits/veggies and lowering carb intake (unless contraindicated). Limit sodas, juices, and sugary drinks. We did discuss that if she commits to exercise and weight loss, that this could also help lower her BP and blood sugar in an effort to decrease pill burden, I do empathize with her regarding this, however at this point we cannot take away any pills Assessment & Plan (11/29/2024 6:18 AM EDT): Discussed with patient their BMI (actual, verses recommended). We have also discussed lifestyle modifications: attempts to perform physical activity as chronic conditions allow, also to monitor dietary intake: increasing protein/fruits/veggies and lowering carb intake (unless contraindicated). Limit sodas, juices, and sugary drinks. Assessment & Plan (08/25/2024 9:33 AM EST): Discussed with patient their BMI (actual, verses recommended). We have also discussed lifestyle modifications: attempts to perform physical activity as chronic conditions allow, also to monitor dietary intake: increasing protein/fruits/veggies and lowering carb intake (unless contraindicated). Limit sodas, juices, and sugary drinks. Assessment & Plan (10/05/2023 10:08 AM EST): Will refer to gang knife fish chopper, goal weight loss at this time is to get to about 165 goal of April of 2024 Assessment & Plan (08/25/2023 2:32 PM EST): ..Discussed with patient their BMI (actual, verses recommended). We have also discussed lifestyle modifications: attempts to perform physical activity as chronic conditions allow, also to monitor dietary intake: increasing protein/fruits/veggies and lowering carb intake (unless contraindicated). Limit sodas, juices, and sugary drinks. Resolved Problems Problem Noted Date Diagnosed Date Resolved Date Type 2 diabetes mellitus wit hout complications 11/29/2024 11/29/2024 Cigarette nicotine dependenc e without complication 11/29/2024 01/04/2025 Assessment & Plan (01/04/2025 6:18 AM EDT): The patient has been advised of the risks of continued smoking: stroke, RI, all forms of cancer, lung disease, and . Options for quitting smoking include: cold turkey, hypnosis, acupuncture, nicotine replacement meds (gum, lozenges, and patches), Buproprion, and Varenicline. At this time pt is encouraged to evaluate their goals for wanting to quit smoking, and reach out to provider when ready to start this process Assessment & Plan (11/29/2024 6:19 AM EDT): The patient has been advised of the risks of continued smoking: stroke, RI, all forms of cancer, lung disease, and . Options for quitting smoking include: cold turkey, hypnosis, acupuncture, nicotine replacement meds (gum, lozenges, and patches), Buproprion, and Varenicline. At this time pt is encouraged to evaluate their goals for wanting to quit smoking, and reach out to provider when ready to start this process Encounter for screening mamm ogram for malignant neoplasm of breast 08/25/2024 11/29/2024 Assessment & Plan (08/25/2024 6:35 AM EST): Due 09/2024 Will order Overweight (BMI 25.0-29.9) 05/26/2024 0 11/29/2024 Assessment & Plan (08/25/2024 6:34 AM EST): Discussed with patient their BMI (actual, verses recommended). We have also discussed lifestyle modifications: attempts to perform physical activity as chronic conditions allow, also to monitor dietary intake: increasing protein/fruits/veggies and lowering carb intake (unless contraindicated). Limit sodas, juices, and sugary drinks. . Tobacco dependence 05/26/2024 Assessment & Plan (08/25/2024 9:39 AM EST): 1/2 ppd The patient has been advised of the risks of continued smoking: stroke, RI, all forms of cancer, lung disease, and . Options for quitting smoking include: cold turkey, hypnosis, acupuncture, nicotine replacement meds (gum, lozenges, and patches), Buproprion, and Varenicline. At this time pt is encouraged to evaluate their goals for wanting to quit smoking, and reach out to provider when ready to start this process Assessment & Plan (05/26/2024 9:36 AM EDT): The patient has been advised of the risks of continued smoking: stroke, RI, all forms of cancer, lung disease, and . Options for quitting smoking include: cold turkey, hypnosis, acupuncture, nicotine replacement meds (gum, lozenges, and patches), Buproprion, and Varenicline. At this time pt is encouraged to evaluate their goals for wanting to quit smoking, and reach out to provider when ready to start this process Colon cancer screening 11/23/202311/29 Assessment & Plan (08/25/2024 6:39 AM EST): Was referred to dr bagley, to date no scope completed Encourage pt to get this scheduled Assessment & Plan (04/25/2024 9:41 AM EDT): Has been referred to kevyn Encounters Date Type Department Care Team Description 03/15/2025 4:00 PM EDT Office Visit [facility] [address] [place] [address] Mela Daily NP Left foot pain (Primary Dx); Essential hypertension ; Obesity (BMI 30-39.9); Type 2 diabetes mellitus without complication, without long-term current use of insulin (HCC); Type 2 diabetes mellitus with diabetic nephropathy (HCC); Type 2 diabetes mellitus with other specified complication (HCC); Mixed hyperlipidemia 03/15/2025 Bamboo flowsheet [facility] [address] [place] [address] Mela Daily NP 02/20/2025 1:00 PM EDT Office Visit [facility] [address] [place] [address] Juno Kong MD Well woman exam with routine gynecological exam (Primary Dx); Screening for HPV (human papillomavirus); Other screening mammogram; Cervical cancer screening 02/20/2025 Bamboo flowsheet [facility] [address] [place] [address] Juno Kong MD 02/20/2025 Travel 01/04/2025 9:20 AM EDT Office Visit [facility] [address] [place] [address] Mela Daily NP Essential hypertension (Primary Dx); Obesity (BMI 30-39.9); Mixed hyperlipidemia 01/04/2025 Bamboo flowsheet [facility] [address] [place] [address] Mela Daily NP from Last 3 Months Immunizations Immunization Administration Dates Next Due Influenza, Injectable, MDCK, preservative free 07/08/2024 Influenza, injectable, MDCK, preservative free, quadrivalent 08/31/2018 Influenza, injectable, quadr ivalent, preservative free 09/19/2023,09/04/2021,06/28/2020 Pneumococcal Polysaccharide PPSV23 11/06/2020 Family History Medical History Relation Name Comments Coronary artery disease Father Stroke Son Relation Name Status Comments Daughter Alive Father Mother Other Spouse Alive Son Alive Social History Tobacco Use Types Packs/Day Years Used Date Smoking Tobacco: Former Cigarettes Q uit: 2022 Smokeless Tobacco: Never Tobacco Cessation:Counseling Given: Not Answered Comments:10-19 cigarettes/day Alcohol Use Standard Drinks/Week Comments Yes 2 [...] How often do you attend chur or shinto services? More than 4 times per year [...] and heating? Not hard at all 08/25/2023 [facility] [place] [facility] - Occupational Stress [...] on file Sexual Orientation Not on file Last Filed Vital Signs Vital Sign Reading [...] oz) 03/15/2025 4:02 P M EDT Height 162.6 cm (5' 4 ) 01/04/2025 9:27 AM EDT Body Mass Index 30.24 01/04/2025 9:27 AM EDT Plan of Treatment Upcoming Encounters Date Type Department Care Team (Late st Contact Info) Description 04/04/2025 9:15 AM EDT Consult [facility] [address] [facility] [address] [place] [address] Alex Teran DO [address] [facility] [address] [place] [address] 04/10/2025 9:20 AM EDT Office Visit [facility] [address] [place] [address] Mela Daily, MAURISIO [address] [place] [address] 11/28/2025 8:35 AM EDT Office Visit [facility] [address] [place] [address] Zaida Saldivar MD [address] [place] [address] Health Maintenance Due Date Last Done Comments CT Colonography 1960 FIT-DNA 1960 FIT 1960 FOBT 1960 Sigmoidoscopy 1960 Colonoscopy 09/21/2022 09/21/2012 Colorectal Cancer Screening 09/21/2022 Diabetes: Hemoglobin A1C 06/15/2025 025, 11/29/2024, 11/29/2024, Additional history exists Mammogram 10/07/2025 10/07/2024, 09/30/2023 Diabetes: Urine Protein Screening 12/12/2025 025, 09/26/2023 Diabetes: Retinopathy Screening 06/02/2026 Influenza Vaccine Completed 07/08/2024, , 09/04/2021, Additional history exists Cervical Cancer Screening Discontinued HPV/Cotest Discontinued 02/20/2025 Pap Smear Discontinued Procedures Procedure Name Priority Date/Time Associated Diagnosis Comments POCT GLYCOSYLATED HEMOGLOBIN (HGB A1C) Routine 03/15/2025 4:17 PM EDT Type 2 diabetes mellitus without complication, without long-term current use of insulin (HCC) IGP, APT HPV,RFX 16/18,45 Routine 02/20/2025 1:13 PM EDT Screening for HPV (human papillomavirus) Cervical cancer screening MM TOMOSYNTHESIS SCREENING BI 10/07/2024 11:46 AM EST from Last 3 Months or Most Recently Relevant to Health Maintenance Results * (ABNORMAL) POCT glycosylated hemoglobin (Hb A1C) docked device (03/15/2025 4:17 PM EDT) Hemoglobin A1C 7.4 Blood Venous blood specimen / Unknown 03/15/2025 4:17 PM EDT Mela Daily MAURISIO POINT OF CARE TEST ENTER/EDIT O RDERABLES Final Result * IGP, APT HPV,RFX 16/18,45 (02/20/2025 1:13 PM EDT) Diagnosis: Comment [facility] Comment: NEGATIVE FOR INTRAEPITHELIAL LESION OR MALIGNANCY. CELLULAR CHANGES ASSOCIATED WITH ATROPHY ARE PRESENT. Specimen Adequacy: Comment [facility] Comment: Satisfactory for evaluation. Endocervical component may not be distinguished in cases of atrophy. Clinician Provided ICD10: Comment [facility] Comment: Z11.51 Z12.4 Performed By: Comment [facility] Comment:Yvan Gong tologlizbeth (ASCP) Cyto Comments . [facility] Note: Comment [facility] Comment: The Pap smear is a screening test designed to aid in the detection of premalignant and malignant conditions of the uterine cervix. It is not a diagnostic procedure and should not be used as the sole means of detecting cervical cancer. Both false-positive and false-negative reports do occur. Test Methodology: Comment [facility] Comment: This liquid based ThinPrep(R) pap test was screened with the use of an image guided system. HPV Aptima Negative Negative [facility] Comment: This nucleic acid amplification test detects fourteen high-risk HPV types (16,18,31,33,35,39,45,51,52,56,58,59,66,68) without differentiation. Vaginal Fluid 02/20/2025 1:1 3 PM EDT 02/21/2025 Narrative [facility] - 02/23/2025 1:07 PM EDT Performed at: - [facility] [address] [place], [place] [id number] Machine Trimmer: Margarito Louise MD, Phone: [phone] Performed at: - [address] [id number] Machine Trimmer: Preethi Small MD, Phone: [phone] Performed at: 03 - [facility] [address] [place], [place] [id number] Machine Trimmer: Preethi Small MD, Phone: [phone] Specimen Comment: No. of containers..01 ThinPrep Vial us Juno Kong MD LAB BLOOD ORDERABLES Final Res ult [facility] * MM TOMOSYNTHESIS SCREENING BI (10/07/2024 11:46 AM EST) Anatomical Region Laterality Modality Other 10/07/2024 11:4 6 AM EST Narrative 10/07/2024 11:47 [place] [address] Mammography Report Signed Patient: JORDY DUNNE MR#: [id number] : 1960 Acct:[id number] Age/Sex: 64 / F ADM Date: 10/07/24 Loc: MAMMO Attending Dr: Mela Daily NP Ordering Physician: Mela Daily NP Results: Date of Service: 10/07/24 Follow Up: Procedure(s): MM tomosynthesis screening BI Accession Number(s): [id number] cc: Mela Daily NP Patient Name: JORDY DUNNE MR#: [id number] : 1960 Exam Date: 10/07/2024 Ordering Doctor: MAMADOU Daily CNP RADIOLOGY REPORT PROCEDURE: MM TOMOSYNTHESIS SCREENING BI COMPARISON: MM TOMOSYNTHESIS SCREENING BI, 09/30/2023. MG MAMM SCREEN 3D GUS CAD, 09/05/2022. MAMMO GUS SCREEN, 07/08/2013. MAMMO GUS SCREEN, 01/08/2009. INDICATIONS: Gus Screening Mammogram Calculator Name NCI Breast Cancer Risk Assessment Tool 5 Year Breast Cancer Risk Not Reported. Lifetime Breast Cancer Risk Not Reported. Personal Breast Cancer No Personal Ovarian Cancer No Treatments None Family Cancers None LOCATION: [facility] BREAST COMPOSITION: There are scattered areas of fibroglandular density. FINDINGS: DIAGNOSTIC CATEGORY 1--NEGATIVE. RIGHT BREAST: No significant suspicious finding. No significant change has occurred. LEFT BREAST: No significant suspicious finding. No significant change has occurred. RECOMMENDATIONS: ROUTINE MAMMOGRAM AND CLINICAL EVALUATION IN 12 MONTHS. PLEASE NOTE: A NORMAL MAMMOGRAM DOES NOT EXCLUDE THE POSSIBILITY OF BREAST CANCER. A CLINICALLY SUSPICIOUS PALPABLE LUMP SHOULD BE BIOPSIED. Dictated by: Josh Rosales M.D. on 10/07/2024 at 11:36 Approved by: Josh Rosales M.D. on 10/07/2024 at 11:45 Dictated By: Josh Rosales M.D. Signed By: 10/07/24 1147 DD/ 1146 TD/TT: Welfare Aide: Procedure Note Radiology, Radiologist, MD - 10/07/2024 [place] [address] Mammography Report Signed Patient: JORDY DUNNE MMR#: [id number] : 1960cct:[id number] Age/Sex: 64 / FADM Date: 10/07/24 Loc: MAMMO Attending Dr: Mela Daily NP Ordering Physician: Mela Daily NPResults: Date of Service: 10/07/24Follow Up: Procedure(s): MM tomosynthesis screening BI Accession Number(s): [id number] cc: Mela Daily NP Patient Name: JORDY DUNNE MR#: [id number] : 1960 Exam Date: 10/07/2024 Ordering Doctor: MAMADOU Daily CNP RADIOLOGY REPORT PROCEDURE: MM TOMOSYNTHESIS SCREENING BI COMPARISON: MM TOMOSYNTHESIS SCREENING BI, 09/30/2023. MG MAMM [id number] GUS CAD, 09/05/2022. MAMMO GUS SCREEN, 07/08/2013. MAMMO GUS SCREEN, 01/08/2009. INDICATIONS: Gus Screening Mammogram Calculator Name NCI Breast Cancer Risk Assessment Tool 5 Year Breast Cancer Risk Not Reported. Lifetime Breast Cancer Risk Not Reported. Personal Breast Cancer No Personal Ovarian Cancer No Treatments None Family Cancers None LOCATION: [facility] BREAST COMPOSITION: There are scattered areas of fibroglandulardensity. FINDINGS: DIAGNOSTIC CATEGORY 1--NEGATIVE. RIGHT BREAST: No significant suspicious finding. No significant changehas occurred. LEFT BREAST: No significant suspicious finding. No significant changehas occurred. RECOMMENDATIONS: ROUTINE MAMMOGRAM AND CLINICAL EVALUATION IN 12 MONTHS. PLEASE NOTE: A NORMAL MAMMOGRAM DOES NOT EXCLUDE THE POSSIBILITY OFBREAST CANCER. A CLINICALLY SUSPICIOUS PALPABLE LUMP SHOULD BE BIOPSIED. Dictated by: Josh Rosales M.D. on 10/07/2024 at 11:36 Approved by: Josh Rosales M.D. on 10/07/2024 at 11:45 Dictated By: Josh Rosales M.D. 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
--- OUTSIDE RECORDS SUMMARY | 2025-03-16 09:06 | XMS_ITS | Encounter Summary ---
Author Organization [facility] Address [address] [facility] [place] [address] Care Team Providers Care Reproductive Healthcare Assistant Name Role Phone Jose Powers MD Primary Care Provider [phone] Mela Daily PARTS IDENTIFIER Unavailable [phone] Mela Daily PARTS IDENTIFIER Unavailable [phone] Encounter Details Date Type Department Care Team (Late st Contact Info) Description 08/25/2023 Abstract [facility] [address] [place] [phone] Mela Daily PARTS IDENTIFIER [address] [place] [address] Social History Tobacco Use Types Packs/Day Years Used Date Smoking Tobacco: Every Day Cigarettes Tobacco Cessation:Ready to Q uit: Not Asked; Counseling Given: Not Answered Comments:10-19 cigarettes/day Alcohol Use Standard Drinks/Week Comments Yes 0 [...] How often do you attend chur or adventist services? More than 4 times per year 08/25/2023 Do you belong to any clubs o r organizations such as caodaism groups, unions, fraternal or athletic groups, or [...] and heating? Not hard at all 08/25/2023 [facility] - Occupational Stress [...] place to sleep or slept in a halfway (including now)? No 08/25/2023 Comments Unknown Sex and Gender Information Value Date Recorded Sex Assigned at Not on file Legal Sex Female 6:56 PM EDT Gender Identity Not on file Sexual Orientation Not on file COVID-19 Exposure Response Date Recorded In the last 10 days, have yo u been in contact with someone who was confirmed or suspected to have Coronavirus/COVID-19? No / Unsure 08/25/2023 2:09 PM EST documented as of this encounter Functional Status * Audit-C Score Answer Date of Assessment Author 2 08/25/2023 2:12 PM EST Mychart, Generic * Q1: How often do you have a drink containing alcohol? Answer Date of Assessment Author Monthly or less 08/25/2023 2:12 PM EST Mychart, Generic * Q2: How many drinks containing alcohol do you have on a typical day when you are drinking? Answer Date of Assessment Author 1 or 2 08/25/2023 2:12 PM EST Mychart, Generic * Q3: How often do you have six or more drinks on one occasion? Answer Date of Assessment Author Less than monthly 08/25/2023 2:12 PM EST Mychart , Generic documented as of this encounter Plan of Treatment Upcoming Encounters Date Type Department Care Team (Late st Contact Info) Description 04/04/2025 9:15 AM EDT Consult [facility] [address] [place] [phone] Alex Teran DO [address] [place] [address] 04/10/2025 9:20 AM EDT Office Visit [facility] [address] [place] [address] Mela Daily NP [address] [place] [address] 11/28/2025 8:35 AM EDT Office Visit [facility] [address] [place] [phone] Zaida Saldivar MD [address] [place] [address] documented as of this encounter Visit Diagnoses Not on filedocumented in this encounter Care Teams Reproductive Healthcare Assistant Relationship Specialty Start Date End Date Jose Powers MD [address] [place] [address] PCP - General Family Medicine 08/18/23 Mela Daily NP [address] [place] [address] PCP - [employer] 12/21/23 Mela Daily NP [address] [place] [address] Nurse Practitioner Family Medicine 08/18/23 documented as of this encounter
--- OUTSIDE RECORDS SUMMARY | 2025-03-16 09:06 | XMS_ITS | Encounter Summary ---
Author Organization [facility] Address [address] [place] [address] Care Team Providers Care Chief Safety Officer Name Role Phone Jose Powers MD Primary Care Provider [phone] Mela Daily NP Unavailable [phone] Mela Daily NP Unavailable [phone] Encounter Details Date Type Department Care Team (Late st Contact Info) Description 09/30/2023 Clinisync Result Encounter [facility] External Department Unsolicited Mela Daily NP [address] [place] [address] Social History Tobacco Use Types Packs/Day Years [...] 08/25/2023 How often do you attend chur ch or catholic services? More than 4 times per year 08/25/2023 Do you belong to any clubs o r organizations such as cheondoism groups, unions, fraternal or athletic groups, or [...] and heating? Not hard at all 08/25/2023 [facility]ational Stress Questionnaire Answer Date [...] AM EDT Consult [facility] [address] [facility] [address] [place] [address] Alex Teran DO [address] [facility] [address] [place] [address] 04/10/2025 9:20 AM EDT Office Visit [facility] [address] [place] [phone] Mela Daily NP [address] [place] [address] 11/28/2025 8:35 AM EDT Office Visit [facility] [address] [place] [phone] Zaida Saldivar MD [address] [place] [address] documented as of this encounter Procedures Procedure Name Priority Date/Time Associated Diagnosis Comments MM TOMOSYNTHESIS SCREENING BI 09/30/2023 10:41 AM EST documented in this encounter Results * MM TOMOSYNTHESIS SCREENING BI (09/30/2023 10:41 AM EST) Anatomical Region Laterality Modality Other 09/30/2023 10:4 1 AM EST Narrative 09/30/2023 10:42 AM EST The [address] [address] Mammography Report Signed Patient: JORDY DUNNE MR#: [id number] : 1960 Acct:[id number] Age/Sex: 63 / F ADM Date: 09/30/23 Loc: MAMMO Attending Dr: Mela Daily NP Ordering Physician: Mela Daily NP Results: Date of Service: 09/30/23 Follow Up: Procedure(s): MM tomosynthesis screening BI Accession Number(s): [id number] cc: Mela Daily NP Patient Name: JORDY DUNNE MR#: [id number] : 1960 Exam Date: 09/30/2023 Ordering Doctor: MAMADOU Daily CNP RADIOLOGY REPORT PROCEDURE: MM TOMOSYNTHESIS SCREENING BI COMPARISON: MG MAMM SCREEN 3D GUS CAD, 09/05/2022. MAMMO GUS SCREEN, 07/08/2013. MAMMO GUS SCREEN, 01/08/2009. INDICATIONS: Gus Screening Mammogram Calculator Name NCI Breast Cancer Risk Assessment Tool 5 Year Breast Cancer Risk Not Reported. Lifetime Breast Cancer Risk Not Reported. Personal Breast Cancer No Personal Ovarian Cancer No Treatments None Family Cancers None LOCATION: The [facility] BREAST COMPOSITION: Scattered areas fibroglandular density. FINDINGS: DIAGNOSTIC CATEGORY 2--BENIGN FINDING: RIGHT BREAST: No significant suspicious finding. Stable, benign-appearing, small lymph node upper outer quadrant. No significant change has occurred. LEFT BREAST: No significant suspicious finding. No significant change has occurred. RECOMMENDATIONS: ROUTINE MAMMOGRAM AND CLINICAL EVALUATION IN 12 MONTHS. PLEASE NOTE: A NORMAL MAMMOGRAM DOES NOT EXCLUDE THE POSSIBILITY OF BREAST CANCER. A CLINICALLY SUSPICIOUS PALPABLE LUMP SHOULD BE BIOPSIED. Dictated by: Josh Rosales M.D. on 09/30/2023 at 10:38 Approved by: Josh Rosales M.D. on 09/30/2023 at 10:41 Dictated By: Josh Rosales M.D. Signed By: 09/30/23 1042 DD/ 104 TD/TT: Rn Telehealth: Procedure Note Radiology, Radiologist, MD - 09/30/2023 [place] [address] Mammography Report Signed Patient: JORDY DUNNE MMR#: [id number] : 1960cct:[id number] Age/Sex: 63 / FADM Date: 09/30/23 Loc: MAMMO Attending Dr: Mela Daily BOW REHAIRER Ordering Physician: Mela Daily NPResults: Date of Service: 09/30/23Follow Up: Procedure(s): MM tomosynthesis screening BI Accession Number(s): [id number] cc: Mela Daily NP Patient Name: JORDY DUNNE MR#: [id number] : 1960 Exam Date: 09/30/2023 Ordering Doctor: MAMADOU Daily ON SITE NURSE RADIOLOGY REPORT PROCEDURE: MM TOMOSYNTHESIS SCREENING BI COMPARISON: MG MAMM SCREEN 3D GUS CAD, 09/05/2022. MAMMO GUS SCREEN, 07/08/2013. MAMMO GUS SCREEN, 01/08/2009. INDICATIONS: Gus Screening Mammogram Calculator Name NCI Breast Cancer Risk Assessment Tool 5 Year Breast Cancer Risk Not Reported. Lifetime Breast Cancer Risk Not Reported. Personal Breast Cancer No Personal Ovarian Cancer No Treatments None Family Cancers None LOCATION: The [facility] BREAST COMPOSITION: Scattered areas fibroglandular density. FINDINGS: DIAGNOSTIC CATEGORY 2--BENIGN FINDING: RIGHT BREAST: No significant suspicious finding. Stable,benign-appearing, small lymph node upper outer quadrant. No significant change hasoccurred. LEFT BREAST: No significant suspicious finding. No significant changehas occurred. RECOMMENDATIONS: ROUTINE MAMMOGRAM AND CLINICAL EVALUATION IN 12 MONTHS. PLEASE NOTE: A NORMAL MAMMOGRAM DOES NOT EXCLUDE THE POSSIBILITY OFBREAST CANCER. A CLINICALLY SUSPICIOUS PALPABLE LUMP SHOULD BE BIOPSIED. Dictated by: Josh Rosales M.D. on 09/30/2023 at 10:38 Approved by: Josh Rosales M.D. on 09/30/2023 at 10:41 Dictated By: Josh Rosales M.D. Signed By:09/30/23 1042 DD/ 1041 TD/TT: Rn Telehealth: us Mela Daily NP [facility] Final Result documented in this encounter Visit Diagnoses Not on filedocumented in this encounter Care Teams Chief Safety Officer Relationship Specialty Start Date End Date Jose Powers MD [address] [place] [address] PCP - General Family Medicine 08/18/23 Mela Daily NP [address] [place] [address] PCP - [facility] 12/21/23 Mela Daily NP [address] [place] [address] Nurse Practitioner Family Medicine 08/18/23 documented as of this encounter
--- OUTSIDE RECORDS SUMMARY | 2025-03-16 09:06 | XMS_ITS | Encounter Summary ---
Author Organization [facility] Address [address] [place] [address] Care Team Providers Care Electrical Assemblies Supervisor Name Role Phone Jose Powers MD Primary Care Provider [phone] Mela Daily NP Unavailable [phone] Mela Daily IT SECURITY ADMINISTRATOR Unavailable [phone] Encounter Details Date Type Department Care Team (Late st Contact Info) Description 11/15/2023 Abstract [facility] [address] [facility] [address] [place] [address] Zaida Saldivar MD [facility] [address] [facility] [address] [place] [address] Social History Tobacco Use Types Packs/Day Years [...] How often do you attend chur or faith services? More than 4 times per year 08/25/2023 Do you belong to any clubs o r organizations such as tenriism groups, unions, fraternal or athletic groups, or [...] and heating? Not hard at all 08/25/2023 [facility] of Occupat ional Health - Occupational Stress [...] AM EDT Consult [facility] [address] [facility] [address] [place] [address] Alex Teran DO [address] [facility] [address] [place] [address] 04/10/2025 9:20 AM EDT Office Visit [facility] [address] [place] [address] Mela Daily NP [address] [place] [address] 11/28/2025 8:35 AM EDT Office Visit [facility] [address] [place] [address] Zaida Saldivar MD [address] [place] [address] documented as of this encounter Visit Diagnoses Not on filedocumented in this encounter Care Teams Electrical Assemblies Supervisor Relationship Specialty Start Date End Date Jose Powers MD [address] [place] [address] PCP - General Family Medicine 08/18/23 Mela Daily NP [address] [place] [address] PCP - [facility] 12/21/23 Mela Daily NP [address] [place] [address] Nurse Practitioner Family Medicine 08/18/23 documented as of this encounter
--- OUTSIDE RECORDS SUMMARY | 2025-03-16 09:06 | XMS_ITS | Encounter Summary ---
Author Organization [facility] Address [address] [place] [address] Care Team Providers Care Sewing Department Supervisor Name Role Phone Jose Powers MD Primary Care Provider [phone] Mela Daily NP Unavailable [phone] Mela Daily NP Unavailable [phone] Encounter Details Date Type Department Care Team (Late st Contact Info) Description 10/07/2024 Clinisync Result Encounter [facility] External Department Unsolicited Mela Daily NP [address] [place] [address] Social History Tobacco Use Types Packs/Day Years Used Date Smoking Tobacco: Former Cigarettes Q uit: 2022 Comments:10-19 cigarettes/da y Alcohol Use Standard Drinks/Week [...] often do you attend chur ch or uatsdin services? More than 4 times per year 08/25/2023 Do you belong to any clubs o r organizations such as samaritan groups, unions, fraternal or athletic groups, or [...] and heating? Not hard at all 08/25/2023 [facility]vt Health - Occupational Stress Questionnaire Answer Date [...] place to sleep or slept in a mcfp (including now)? No 08/25/2023 Comments Unknown Sex [...] EDT Consult [facility] [address] [facility] 150 [place] [address] Alex Teran DO 703 [facility] 150 [place] [address] 04/10/2025 9:20 AM EDT Office Visit [facility] [address] [place] [address] Mela Daily NP [address] [place] [address] 11/28/2025 8:35 AM EDT Office Visit [facility] [address] [place] [address] Zaida Saldivar MD [address] [place] [address] documented as of this encounter Procedures Procedure Name Priority Date/Time Associated Diagnosis Comments MM TOMOSYNTHESIS SCREENING BI 10/07/2024 11:46 AM EST documented in this encounter Results * MM TOMOSYNTHESIS SCREENING BI (10/07/2024 11:46 AM EST) Anatomical Region Laterality Modality Other 10/07/2024 11:4 6 AM EST Narrative 10/07/2024 11:47 AM EST The [address] [address] Mammography Report Signed Patient: JORDY DUNNE MR#: [id number] : 1960 Acct:[id number] Age/Sex: 64 / F ADM Date: 10/07/24 Loc: MAMMO Attending Dr: Mela Daily NP Ordering Physician: Mela Daily NP Results: Date of Service: 10/07/24 Follow Up: Procedure(s): MM tomosynthesis screening BI Accession Number(s): [id number] cc: Mela Daily NP Patient Name: JORDY DUNNE MR#: [id number] : 1960 Exam Date: 10/07/2024 Ordering Doctor: [...] Treatments None Family Cancers None LOCATION: The [facility] BREAST COMPOSITION: There are scattered areas of [...] M.D. on 10/07/2024 at 11:45 Dictated By: Johs Rosales M.D. Signed By: 10/07/24 1147 DD/ 1146 TD/TT: Rn Sane: Procedure Note Radiology, Radiologist, MD - 10/07/2024 [place] [address] Mammography Report Signed Patient: JORDY DUNNE MMR#: [id number] : 1960cct:[id number] Age/Sex: 64 / FADM Date: 10/07/24 Loc: MAMMO Attending Dr: Mela Daily PARAMEDIC INSTRUCTOR Ordering Physician: Mela Daily NPResults: Date of Service: 10/07/24Follow Up: Procedure(s): MM tomosynthesis screening BI Accession Number(s): [id number] cc: Mela Daily NP Patient Name: JORDY DUNNE MR#: [id number] : 1960 Exam Date: 10/07/2024 Ordering Doctor: MAMADOU Daily POLY AREA SUPERVISOR RADIOLOGY REPORT PROCEDURE: MM TOMOSYNTHESIS SCREENING BI COMPARISON: MM TOMOSYNTHESIS SCREENING BI, 09/30/2023. MG MAMM [id number] GUS CAD, 09/05/2022. MAMMO GUS SCREEN, 07/08/2013. MAMMO GUS SCREEN, 01/08/2009. INDICATIONS: Gus Screening Mammogram Calculator Name NCI Breast Cancer Risk Assessment Tool 5 Year Breast Cancer Risk Not Reported. Lifetime Breast Cancer Risk Not Reported. Personal Breast Cancer No Personal Ovarian Cancer No Treatments None Family Cancers None LOCATION: The [facility] BREAST COMPOSITION: There are scattered areas of [...] M.D. Signed By:10/07/24 1147 DD/ 1146 TD/TT: Rn Sane: Mela Daily NP [facility] Final Result documented in this encounter Visit Diagnoses Not on filedocumented in this encounter Care Teams Sewing Department Supervisor Relationship Specialty Start Date End Date Jose Powers MD [address] [place] [address] PCP - General Family Medicine 08/18/23 Mela Daily NP [address] [place] [address] PCP - [facility] 12/21/23 Mela Daily NP [address] [place] [address] Nurse Practitioner Family Medicine 08/18/23 documented as of this encounter
--- NOTE | 2025-03-16 09:10 | XR_ITS ---
The [address] [address] Patient Name: JORDY PHILIP MRN: [id number] date: 1960 Sex: F Assigned Patient Location: [facility] Current Patient Location: [facility] Accession/Order Number: [id number] Exam Date: 03/16/2025 09:50 Report Date: 03/16/2025 09:51 At the request of: PARESH ROCHA NP Procedure: XR foot LT min 3V LEFT FOOT - 3 views CLINICAL DATA: Dorsal medial left foot pain for the past 2 weeks. No injury. COMPARISON: None AP, lateral and oblique views were obtained. There is no evidence of fracture or dislocation. A plantar calcaneal spur is seen. There are no significant soft tissue abnormalities. XR/XR foot LT min 3V IMPRESSION: NO ACUTE BONY FINDINGS. Impression dictated by: Mili Christy M.D. 03/16/2025 9:51 AM Dictation Location: [place] [address] Electronically authenticated by: [id number] Y Date: 03/16/2025 09:51
--- OUTSIDE RECORDS SUMMARY | 2025-03-16 09:21 | XMS_ITS | CCD ---
Author Organization [facility] Care Team Providers Care Advertisement Compositor Name Role Phone House, Sr Evan Lu Primary Care Provider JOSE MIGUEL, SR EVAN Lu Primary Care Unavailable FERNANDEZ RIOS Admitting Unavailable FERNANDEZ RIOS Attending Unavailable Evan Gillespie Primary Care Physician Orlando Cole Admitting Unavailable Douglas, Orlando Boothe Attending Unavailable Orlando Cole Referring Unavailable Areli, Cameron Fermin Admitting Unavailable Areli, Cameron Fermin Attending Unavailable Areli, Cameron Fermin Referring Unavailable JOSE MIGUEL, DR MARADIAGA Admitting Unavailable JOSE MIGUEL, DR MARADIAGA Primary Care Unavailable HOUSE, DR MARADIAGA Consulting Unavailable HOUSE, DR MARADIAGA Attending Unavailable HOUSE, DR MARADIAGA Primary Care Unavailable JOSE MIGUEL, DR MARADIAGA Consulting Unavailable JOSE MIGUEL, DR MARADIAGA Attending Unavailable JOSE MIGUEL, DR MARADIAGA Admitting Unavailable JOSELITO, DR MORA Saenz Consulting Unavailable Priya GONZALES, Jose Primary Care Provider [employer], Mela Unavailable Priya GONZALES, Jose Primary Care Provider [phone] [employer]icaless[employer], Mela Unavailable Abimbola [employer], Mela Unavailable HERNÁN FLORES Attending Unavailable AICHHOLZ, MELA Attending Unavailable AICHHOLZ, MELA Attending Unavailable AICHHOLZ, MELA Attending Unavailable AICHHOLZ, MELA Attending Unavailable JUNO KONG Attending Unavailable AICHHOLZ, MELA Attending Unavailable Allergies Allergy Classification Reported Allergen(s) Allergy Type Date of Onset Reaction(s) Facility (19 sources) empagliflozin Drug Allergy 04-25-2024 Rash NOMS [...] aspirin 81 mg delayed release oral tablet (19 sources) Platelet Aggregation Inhibitor, Nonsteroidal Anti-inflammator y Drug take 1 tablet by mouth once daily aspirin 81 MG EC tablet Take 81 mg by mouth Daily Active atorvastatin 40 mg oral tablet (20 sources) HMG-CoA Reductase Inhibitor Start: 01-04-2025 End: 06-13-2025 take 1 tablet by mouth at bedtime atorvastatin (Lipitor) 40 MG tablet Indications: Mixed hyperlipidemia Take 1 tablet (40 mg) by mouth at bedtime 90 tablet 1 03/15/2025 06/13/2025 Active Start: 11-29-2024 End: 02-27-2025 take 1 tablet by mouth at bedtime atorvastatin (Lipitor) 20 MG tablet Indications: Mixed hyperlipidemia (CMS/HCC) Take 1 tablet (20 mg) by mouth at bedtime 90 tablet 1 11/29/2024 01/04/2025 Discontinued (Ineffective) Start: 04-27-2024 End: 11-23-2024 take 1 tablet [...] PRN, Muscle spasms, Starting 09/10/20 at 2044 dapagliflozin 10 mg oral tablet (20 sources) Sodium-Glucose Cotransporter 2 Inhibitor Start: 11-29-2024 End: 06-13-2025 take 1 tablet by mouth once daily dapagliflozin (Farxiga) 10 MG Indications: Type 2 diabetes mellitus without complication, without long-term current use of insulin (HCC) Take 1 tablet (10 mg) by mouth Daily 90 tablet 1 03/15/2025 06/13/2025 Active Start: 05-26-2024 End: 11-23-2024 take 1 tablet by mouth once daily dapagliflozin (Farxiga) 5 MG Indications: Type 2 diabetes mellitus without complication, without long-term current use of insulin (CMS/HCC) Take 1 tablet (5 mg) by mouth [...] DAILY, First dose on Thu09/10/20 at 2115 indomethacin 25 mg oral capsule (2 sources) Nonsteroidal Anti-inflammatory Drug Start: 03-15-2025 End: 03-25-2025 take 1 capsule by mouth three times daily at mealtime as needed for pain indomethacin (Indocin) 25 MG capsule Indications: Left foot pain Take 1 capsule (25 mg) by mouth 3 (three) times a day as needed for mild pain (pain) for up to 10 days Take with food 30 capsule 03/15/2025 03/25/2025 Active metFORMIN hydrochloride 500 mg oral tablet (20 sources) Biguanide Start: 11-29-2024 End: 06-13-2025 take 1 tablet by mouth in the morning metFORMIN (Glucophage) 500 MG tablet Indications: Type 2 diabetes mellitus without complication, without long-term current use of insulin (HCC) Take 1 tablet (500 mg) by mouth in the morning and 1 tablet (500 mg) in the evening. Take with meals. 180 tablet 1 03/15/2025 06/13/2025 Active Start: 02-18-2024 End: 11-23-2024 take 1 tablet [...] mg ondansetron 4 mg disintegrating oral tablet (13 sources) Serotonin-3 Receptor Antagonist Start: 01-04-2024 End: 01-04-2025 take 1 tablet by mouth every eight hours as needed for nausea and vomiting ondansetron ODT (Zofran-ODT) 4 MG disintegrating tablet Take 4 mg by mouth every 8 (eight) hours if needed for nausea or vomiting 01/04/2024 01/04/2025 Discontinued (Therapy completed) polyethylene glycol 3350 60974 mg powder for oral solution (1 source) Osmotic Laxative Start: 09-10-2020 polyethylene glycol (GLYCOLAX) packet 17 g Promethazine (1 source) Phenothiazine Start: 09-10-2020 promethazine (PHENERGAN) tablet 12.5 mg 24 hr propranolol hydrochloride 60 mg extended release oral capsule (20 sources) beta-Adrenergic Kailey Start: 11-29-2024 End: 06-13-2025 take 1 capsule by mouth once daily propranolol LA (Inderal LA) 60 MG 24 hr capsule Indications: Essential hypertension Take 1 capsule (60 mg) by mouth Daily 90 capsule 1 03/15/2025 06/13/2025 Active Start: 05-10-2024 End: 11-23-2024 take 1 capsule [...] daily 0 09/10/2020 Discontinued (Therapy completed) sennosides, snf 8.6 mg oral tablet (1 source) Start: [...] Drug Class(es) Dates Sig (Normalized) Sig (Original) amLODIPine 5 mg oral tablet (13 sources) Dihydropyridine Calcium Channel Kailey Start: 11-29-2024 End: 06-13-2025 take 1 tablet by mouth once daily amLODIPine (Norvasc) 5 MG tablet Indications: Essential hypertension Take 1 tablet (5 mg) by mouth Daily 90 tablet 1 01/04/2025 03/15/2025 Discontinued (Reorder) 2 ml fentaNYL 0.05 mg/ml injection (1 source) Opioid Agonist Start: 09-10-2020 End: 09-10-2020 fentaNYL (SUBLIMAZE) injection 50 mcg 1 ml HYDROmorphone hydrochloride 1 mg/ml cartridge (1 source) Opioid Agonist Start: 09-11-2020 End: 09-11-2020 HYDROmorphone (DILAUDID) injection 0.5 mg ketorolac tromethamine 10 mg oral tablet (1 source) Nonsteroidal Anti-inflammatory Drug, Cyclooxygenase Inhibitor End: 09-11-2020 take 1 tablet by mouth every six hours as needed for pain ketorolac (TORADOL) 10 MG tablet Take 10 mg by mouth every 6 hours as needed for Pain 0 09/11/2020 Discontinued (Stop Taking at Discharge) lisinopril 30 mg oral tablet (20 sources) Angiotensin Converting Enzyme Inhibitor Start: 04-25-2024 End: 06-13-2025 take 1 tablet by mouth once daily lisinopril 30 MG tablet Indications: Essential hypertension Take 1 tablet (30 mg) by mouth Daily 90 tablet 1 01/04/2025 03/15/2025 Discontinued (Reorder) Start: 10-26-2023 End: 01-24-2024 take 1 tablet by mouth in the morning lisinopril 10 MG tablet Indications: Essential hypertension (CMS/HCC) , Microalbuminuria Take 1 tablet (10 mg) by mouth in the morning. 90 tablet 1 10/26/2023 01/24/2024 Active LORazepam 0.5 mg oral tablet (1 source) Benzodiazepine Start: 09-10-2020 End: 09-10-2020 LORazepam (ATIVAN) tablet 1 mg methylPREDNISolone 4 mg oral tablet (1 source) Corticosteroid Start: 09-07-2020 End: 09-11-2020 methylPREDNISolone (MEDROL DOSEPACK) 4 MG tablet Indications: Lumbar radiculopathy , Lumbar spondylosis , Weakness Take by mouth. 1 kit 0 09/07/2020 09/11/2020 Discontinued (Stop Taking at Discharge) 12 hr orphenadrine citrate 100 mg extended release oral tablet (1 source) Muscle Relaxant Start: 09-06-2020 End: 09-11-2020 take 1 tablet by mouth once daily orphenadrine (NORFLEX) 100 MG extended release tablet Take 1 tablet by mouth daily 0 09/06/2020 09/11/2020 Discontinued (Stop Taking at Discharge) Problems Active Problems Problem Classification Problem Date Documented Date Episodic/Chronic Diabetes mellitus with complications (10 sources) Renal disorder due to type 2 diabetes mellitus; Translations: [Type 2 diabetes mellitus with diabetic nephropathy] Onset: 03-15-2025 03-15-2025 Chronic Diabetes mellitus without complication (20 sources) Type 2 diabetes mellitus without complication; Translations: [Type 2 diabetes mellitus without complications] Onset: 08-25-2023 Resolved: 11-29-2024 08-25-2023 Chronic Disorders of lipid metabolism (20 sources) Mixed hyperlipidemia; Translations: [Mixed hyperlipidemia] Onset: 09-28-2023 10-27-2023 Chronic Essential hypertension (20 sources) Essential hypertension; Translations: [Essential (primary) hypertension] Onset: 08-25-2023 08-25-2023 Chronic Immunizations and screening for infectious disease (2 sources) Patient encounter status; Translations: [Encounter for screening for human papillomavirus (HPV)] 02-16-2025 Episodic Joint disorders and dislocations; trauma-related (20 sources) Articular cartilage disorder of shoulder region; Translations: [Other articular cartilage disorders, left shoulder] Onset: 08-25-2023 08-25-2023 Chronic Osteoarthritis (20 sources) Osteoarthritis of left acromioclavicular joint; Translations: [Primary osteoarthritis, left shoulder] Onset: 08-25-2023 08-25-2023 Chronic Other connective tissue disease (4 sources) Pain in left foot; Translations: [Pain in left foot] Onset: 03-15-2025 03-15-2025 Episodic Other nervous system disorders (1 source) Postoperative pain ; Translations: [Postoperative pain] Episodic Other nutritional; endocrine; and metabolic disorders (20 sources) Body mass index 30+ - obesity; Translations: [Obesity, unspecified] Onset: 08-25-2023 08-25-2023 Chronic Paralysis (4 sources) Weakness of right leg; Translations: [Right leg weakness] Onset: 09-10-2020 09-10-2020 Screening and history of mental health and substance abuse codes (8 sources) Ex-smoker; Translations: [Personal history of nicotine dependence] Onset: 01-04-2025 01-04-2025 Episodic Spondylosis; intervertebral disc disorders; other back problems (20 sources) Prolapsed lumbar intervertebral disc; Translations: [Other intervertebral disc displacement, lumbar region] Onset: 08-25-2023 08-25-2023 Chronic Past or Other Problems Problem Classification Problem Date Documented Da te Episodic/Chronic Genitourinary symptoms and ill-defined conditions (20 sources) Microalbuminuria; Translations: [Proteinuria, unspecified] Onset: 09-28-2023 09-28-2023 Episodic Other connective tissue disease (20 sources) Partial thickness rotator cuff tear; Translations: [Incomplete rotator cuff tear or rupture of unspecified shoulder, not specified as traumatic] Onset: 08-25-2023 08-25-2023 Episodic Other nutritional; endocrine; and metabolic disorders (18 sources) Body mass index 25-29 - overweight; Translations: [Overweight] Onset: 05-26-2024 Resolved: 11-29-2024 05-26-2024 Episodic Other screening for suspected conditions (not mental disorders or infectious disease) (20 sources) Encounter for screening mammogram for malignant neoplasm of breast; Translations: [Patient encounter status] Onset: 09-05-2022 Resolved: 11-29-2024 Episodic Substance-related disorders (20 sources) Tobacco dependence syndrome; Translations: [Nicotine dependence, unspecified, uncomplicated] Onset: 05-26-2024 Resolved: 01-04-2025 05-26-2024 Chronic Results Test Name Value Interpretation Reference Range Facility HbA1c (Bld) [Mass fraction]o n 03-15-2025 Interpretation and review of laboratory results Abnormal [facility] - Hematology [facility] 03-15-2025 HbA1c (Bld) [Mass fraction] 7.4 % [facility] HbA1c (Bld) [Mass fraction]o n 08-25-2024 Interpretation and review of laboratory results Abnormal [facility] - Hematology and Cell countson 08-25-2024 HbA1c (Bld) [Mass fraction] 6.10 % [facility] MLR HEMOGLOBIN A1Con 024 Glucose [Mass/Vol] 140 mg/dL [facility] HbA1c (Bld) [Mass fraction] 6.5 % High 4.5 - 6.2 % [facility] Comment on above: ADA RECOMMENDED LIMI T 4.0 - 6.0 ADA THERAPEUTIC TARGET < 7.0 ACTION SUGGESTED > 7.0 Interpretation and review of laboratory results Abnormal [facility] MG MAMM SCREEN 3D ANGELICA CADon 09-05-2022 MG MAMM SCREEN 3D ANGELICA CAD Patient: JORDY DUNNE Exam Date: 09/05/2022 : 1960 Gender:F Ordering : DR EVAN GILLESPIE DRolandaORolanda Admission #: [id number] Family : Order #: [id number] CLICK HERE TO VIEW EXAM RADIOLOGY REPORT PROCEDURE: MAMMOGRAM SCREENING 3D BILATERAL CAD COMPARISON: MAMMO ANGELICA SCREEN, 07/08/2013. MAMMO ANGELICA SCREEN, 01/08/2009. INDICATIONS: Screening mammography Calculator Name NCI Breast Cancer Risk Assessment Tool 5 Year Breast Cancer Risk Not Reported. Lifetime Breast Cancer Risk Not Reported. Personal Breast Cancer No Personal Ovarian Cancer No Treatments None Family Cancers None LOCATION: [facility] BREAST COMPOSITION: Scattered areas fibroglandular [...] PALPABLE LUMP SHOULD BE BIOPSIED. Dictated by: Mora Rosales M.D. on 09/08/2022 at 13:27 Approved by: Mora Rosales M.D. on 09/08/2022 at 13:34 Normal [facility] Coding Summary.on 06-02-2022 Coding Summary. [id number] G h0bWw+PGhlYWQ+MS4NUGY dF34veAJxgE6SP3wGFW1K ADYRKSDCDD6NPT3hvXO5L OyyC4RwikJq QyxmgUGkXP92NVi5JCH2j UtpLBziqX1wgGOnG1y0Ke XkMR66jB87NPkuIKSgKzI 3LjZpbjsgbWFy H7ywTxApzWMzUgp+PHRhY mxlIHdpZHRoPScxMDAlJy SilKzxCB4hDz0uGICkJXQ vbGxhcHNlOiBj a7cuDENeJVgdEI4ruEwgV 7LvxGO3LTKzx2c2Iq33zD I+OLJlSJE7rEudDEorj27 3IfQhp5lwLPA2 lNRuGMetNXA6N81df4K4U LGmASWcXYC9wEN9oM7fhU bobkghI0EkbSKzDmZ9LGA 7yBHanU3uaPhn wyqjgM5qCbt+N36QTG8YR JLKFT0UJki8V7MfHdfhgI I+JG00CEWtUM36xIPykED hb2fabYh4QuPx ITPiGHX5eQouWPhyc7UlJ FZiE95kcIMbt9S7VWNafF hwjRPeWgNjqUN7iZ2iSMc ygktre4zkeesb Cmqfk5mjvx03gX93O32kC CnlLKQuRQH4XREeFUIwtE bqxm9dwT0ePm9+XZvdj5q kv6pdpQg5BeEe GPTxwbZlnYvrNEC7r9WvJ z02X2PddFtex7PwPnb7xb 74hNFmo4J8lXD9XBfnPDW gpR6bNIasZvL0 FPLmYjSgyE13jYLrNNroI c0xlUpgkQztTR6mUVCnca xqUJMjxR6yRUXwlCAdnDn uZQ9bRFHylibz y448LfJuPSV5NFVweWZcF 8VpmE1cHgIrYNLzCSDjF2 XhyNNdBCylZ268UIxaTpB 9XLGexnKfJ3Yo MVTimObaEoM0u6R4Hs8Xk 5IgcaijPHF9WZsbBQC2Jw MvFhDaVoW9X0QiWdp4XDE coXwqGG8gX4Gw JLUhhvhftfzsgLE6NXFkS NAiyB55zMQcBXjuFj3qj0 D0u072BFNmACXlaI87Fr9 udDogMTBwdCBU uK6owsvpi7cvsooxFxLyW XNgZGr8RGx5CYTakGilLb QbCRJ9ZxI5NEQ6uVTkbM8 unFpqissyeB5u Oyc+X50pyG2uVGS0FRL6p hqwMNEkdyZnMU40TT70T1 RyPjwvdGFibGU+PGRpdiB riPdiLM1kQlNp h5udy5XhANutB1RvEOJpS XfnRyp5HHZiZUI1pOC3rE 4xILUfDFgsq0C7mVA3R2T rdcPkig1ve2ro NWQbGAikA71bgCMkm0P7U VWnzTW8GMVqtWjoAvYbhZ 93Oyc+UZQdeKavo0UwKaq do5djo3zyqGr0 EzNhPHTtfoXrwVykKRF0o 2KlYw68U28oALkgTDJcHT IvJAFlZXMmuPcpip3txJ9 wIi8+PGNvbCB3 gXG9pA4mMSPqXpM8DMbjM 178EfPmmONnOiuda1gpt3 dalDu3XfToRGQmemXhlHc zMKF6a8XdBd81 K28aYEgiQFXaDWFnTFPgK ZEusAfjky6zpB1eYr9+PC 0oc6awkk31qG21wGM+PHR hDOY9kSrbDRrb BTGdtA2qNRmoIzL5YTMqP eXapU05bCZoMDqcEo6raO yesEoeNF6aXVOqszpdv09 4VnUwr1ogCUEv vREnLQemWGO9B63tn7Y3V ROsESVaTXX5aZS6pB4noY lnbjogbGVmdDsgdmVydGl cORtiRKuvQ059 IHRvcDsnPlBhdGllbnQgT uAvTMg2N5ZeMdq6EPFbnF rxMM8kqBHtHKhnAs0luRx nnOpzHF9iDDGe mwlhx197JfGfk4cfDVCjm TDoCDxnTRL6F53th7Q4BM ZiCVKkWIQ6eGD0eE7blNp nbjogbGVmdDsg zcIeiGsyKUlsKZieA953F HRvcDsnPkJpcnRoIERhdG J0XD52RS18zHBey9J8qNP 2Y8NnXJUfpacb iuyfxFW6HIAwMFGgxA12B p9ogPtjYu5bGKIkAOD5OF DxyMYpD6RtnB9zHaXwZYM wZPJkC4LtgLSx SEydI599GBhyNjY1AEJvn jUxK6YhLONpsQthHgH1s5 V8Iu8MA4S5FS49JX28vOS ct1G1tTD6Y6Lh XVFndasjreaovWR4CIYaU BSbmX30Rm2maYjtRt8hBW ChISO1MHUivQWbS7CvyM7 yOiAjMDAwMDAw L1OgnXDpZXhdC085KZhtU dE7SIUfzxAeE6EyPWCgpR pdHsP9d1X3Ba0CPUi3UP4 7HP07lRZrr1W2 rMH6Z6BoPPOwbenzzhhnk FW6BCZvANXtgO53Ml2neX jyZr5cZMXxMWM0FFJvqLI wW6YaqU5tWjSc BZQtXZZpP8ImcPKmSLuiM 237EGiyJkU9RNYsgnFiM0 ZtNBNnyQfiDuZ8m0W7Uh1 JOCYuXS51KPA8 sRF5CE81JV62A5WaGnhqg GFibGU+PHRhYmxlIHdpZH RoPScxMDAlJyBzdHlsZT0 aNu3zNNYkHKVc qVzssWVtQtTmm7byBHMyF JstAE0dmXqyC5VoqFR5PL Tnr3z7Zm18S24hO7HkkVJ +XHEfmRJ8bKU4 kT0lIjDiCxG2FTmgD752G bMybMPtMkfiv1gnz2idbY s3CvX9GKJdsdFakAnfYDH 2h7VcNa95E11p IHdpZHRoPSIxNSUiIHZhb Wbdwk6cjN7xOn0+PGNvbC M2jWU7kV1eSmUoFqI8ZAz bW882AaDbfIZp Zvwwy8anf7zyhTk1NnIpE MByhqBgbPrcPBU5e6KgOq 00E9AjgCuzd5MrZlr3aq6 7gHFjj9T5pDT1 I4UyKFBsxlixnOWyuJflO J2bMOAianhaTSZcsP2eCG BzL4k2YnWyAaB7WWnnO9V eyxF9VVZxhGSy QGhnJWF8I53tr1W8ICGiZ GPxBCF3sFH3tR9kqPophp ogbGVmdDsgdmVydGljYWw tJXhoK917VXTb eVdvJQZqtW7lONItpDKgt WrmPA4nOJQmkqakPa1DY1 JFLCBMVUNSRVRJQSBNPC9 6PO78nDUlj4C9 yDB4O8XwUURxwiyuqiwiz KZ6GYYcDPMxhV22uBEaHE dxNx8up0P0u814EXEpKZG ytH53Kh2weJmx TJBhmCDRtH4qjryqf6xlk ixdQqLdEFYnSFi0MJu4OW FoxHhsIlQnIQN2IcJ9BWF 1bWYxgF7loVws qobiqC5hDru+MDkvMTEvM Xw4TMlndHY+EHIbZFM3nL vdJOaeTSQdlJ6sVKEvH8c 6LhYoNpU5RLem J9PcSUVgqzvpPr09iW1rE sRbErW9WRkgI2ZvopY3OA IaxFEsLRbmFZC4R75gv4H 2YBTcAUVbBBJ2 yZU8sJ9rnCqkigjqhQOqv DsgdmVydGljYWwtYWxpZ2 46IHRvcDsnPjYxIFllYXJ yCU64NY28yXXz y9C7kUE9X8IyCWThnvzoa tzvhSK9OHUzTCDqeC48zK GkIKghBd9jq3D7l865VPV cSNTrmI29Fs8j rFmeSAPqnGCHcV7ngnean 8uimwrdBeMrZFByMHg4XO p4SBXrwMinTyAmZUC0FqS 1AEA6zOGskM6m tDjkznyfvC9sRqz+RmVtY SbfFI96IS54jDTbh9A4pJ B4C0RxHAWpbfzsqhwtyLV 6NKMyTSWhcB52 hRDlTZjoYw4tn9Z6z104E AOcURIzmN75Rh5pdMmyFO NddVPPnU4dcsebl5rjrgh gIzAwMDAwMDt0 WPf3ZEGreJjcUsTwMXD1N iJ9XKS3qXPpgW9flOnhju zvwP9bOni+I5Z7mZQ5jTF udDwvdGQ+PC90 ar78I7HeTnmeEbx6IDNkT LV9tFV7wK3xWLQzHXgzo5 I2lYJ4T1VkgqWloe8gv6b iLFZfXFklI08l iAShw2X0PGNiqRJ1FIToj NuxCrLqsH77Kfr+PGNvbG aej3XqYqpag7kxf8htnLw 9IjMwJSIgdmFs hGfrLJN6y8JzDn05Z59aH HdpZHRoPSIzMCUiIHZhbG nugu8ytE1yRg8+PGNvbCB 5mIL2mW6dYpCv ScN1YTmiU014PhIeeJBqM qlgq7utk9jwjRa6OaOqLN SsipXyeIrgQZG1w1OvFj3 7R9AdsHjyz5Ei Bui7li71pGHiq7U9cDY2I 3BhZGRpbmctbGVmdDogMC 0qKYEspatjOGIsnL7pDCF rR7u0AtKcBjM0 WRlwD9OtxeJ3XCMzhBFlQ TEzrFTWkC8hqedkc5ggxe sfSiUfGOXnIVj0BGz6XSJ saWduOiBsZWZ0 ApY7ZEJ2nDWiwP9mnDrga envfY3pXna+RNa5k4qeiS LaRH8dkAG3EU31ZR56zRA kd0F3iAR1V6Fx SLMxhesubjobsMG1IPYaQ GRnfV06Dy3vvCvgSt6dYU FhBGI5FRYdhSDqK5EpqM7 yOiAjMDAwMDAw V5TohMXrSFwbY215TWzpA qA9MUYcibXqJ1VeXMRclI haRrN8s0G3Ur2ZAJ72UH3 7YN90eNUrx4G7 fOI9G2NkXWEspwxecxjmt LN4MJVdYBLqbI94Cx5bfK rfBn7yVXUkAAV6WAMkyZI wM9IynQ4jXiQj HHIoRJHmT8ImjBYcTUwpU 599RSthFhY9LGNavfVqA3 ZyVTRbyXpfUyK8j1V0Qs4 KVo19JE69GQ96 hBJpp9J2cWD2A7GgXVFui aloonvouHF1CWUfGXUrsI 43Ws8uzFdiDb8dHXBqMHV 0ZCXrfAClF8Ma rD4yXiMbFMKkRVGsL4Lgq AMmDIwxF378AUqiYrG5ZM TgkfXuC7OiVAVxkUuuHsH 3c4L0Bv1LPAua akm6F6WwDznurRR+PC90Y DViCK60uQJpeEHaj7fboN q3TbToZZFbOBY7fXckQAx qz2McTLGuB76c bGFw (more content not included)... Normal [facility] Auto Diffon 05-30-2022 Basophils/100 WBC (Bld) 0.6 % Normal 0.0-2.0 [facility] Comment on above: Order Comment: Order Added by Discern Expert. Performed By: #### 7 [id number] #### [facility] [address] [place] [address] Basophils/Leukocytes Auto (Bld) [Pure # fraction] 0.0 E9/L Normal 0.0-0.2 [facility] Comment on above: Order Comment: Order Added by Discern Expert. Performed By: #### 7 [id number] #### [facility] [address] [place] [address] Eosinophils/100 WBC (Bld) 1.3 % Normal 0.0-8.0 [facility] Comment on above: Order Comment: Order Added by Discern Expert. Performed By: #### 7 [id number] #### [facility] [address] [place] [address] Eosinophils/Leukocyte s Auto (Bld) [Pure # fraction] 0.1 E9/L Normal 0.0-0.5 [facility] Comment on above: Order Comment: Order Added by Discern Expert. Performed By: #### 7 [id number] #### [facility] [address] [place] [address] Lymphocytes/100 WBC (Bld) 32.4 % Normal 14.0-50.0 [facility] Comment on above: Order Comment: Order Added by Discern Expert. Performed By: #### 7 [id number] #### [facility] [address] [place] [address] Lymphocytes/Leukocyte s Auto (Bld) [Pure # fraction] 2.1 E9/L Normal 1.0-4.0 [facility] Comment on above: Order Comment: Order Added by Discern Expert. Performed By: #### 7 [id number] #### [facility] [address] [place] [address] Monocytes/100 WBC (Bld) 7.6 % Normal 4.0-14.0 [facility] Comment on above: Order Comment: Order Added by Discern Expert. Performed By: #### 7 [id number] #### [facility] [address] [place] [address] Monocytes/Leukocytes Auto (Bld) [Pure # fraction] 0.5 E9/L Normal 0.2-1.0 [facility] Comment on above: Order Comment: Order Added by Discern Expert. Performed By: #### 7 [id number] #### [facility] [address] [place] [address] Neutrophils/100 WBC (Bld) 58.1 % Normal 36.0-75.0 [facility] Comment on above: Order Comment: Order Added by Discern Expert. Performed By: #### 7 [id number], [id number] #### [facility] [address] [place] [address] Neutrophils/Leukocyte s Auto (Bld) [Pure # fraction] 3.7 E9/L Normal 2.0-7.5 [facility] Comment on above: Order Comment: Order Added by Discern Expert. Performed By: #### 7 [id number], [id number], 8984819, [id number], [id number] #### [facility] [address] [place] [address] BMPon 05-30-2022 Anion gap [Moles/Vol] 11 mmol/L Normal 6-16 [facility] Comment on above: Performed By: #### 7 [id number], 7531554, 1076730, 1452167, [id number] #### [facility] [address] [place] [address] Calcium [Mass/Vol] 9.1 mg/dL Normal 8.9-11.1 [facility] Comment on above: Performed By: #### 7 [id number], [id number], 4691266, 8161469, [id number] #### [facility] [address] [place] [address] Chloride [Moles/Vol] 102 mmol/L Normal 101-111 [facility] Comment on above: Performed By: #### 7 [id number], 5450666, 6356679, 5980566, [id number] #### [facility] [address] [place] [address] CO2 [Moles/Vol] 28 mmol/L Normal 21-31 [facility] Comment on above: Performed By: #### 7 [id number], 1400187, 8746036, 4204093, [id number] #### [facility] [address] [place] [address] Creatinine [Mass/Vol] 0.7 mg/dL Normal 0.5-1.3 [facility] Comment on above: Performed By: #### 7 [id number], 3662931, 4888055, 6858824, 83491769 #### [facility] [address] [place] [address] Glucose [Mass/Vol] 115 mg/dL Normal 55-199 [facility] Comment on above: Result Comment: If t his glucose result represents a fasting glucose, interpretation should refer to the following reference range: 55-99 mg/dL Performed By: #### 7 [id number], 4270012, 6951236, 1514296, [id number] #### [facility] [address] [place] [address] Potassium [Moles/Vol] 4.1 mmol/L Normal 3.5-5.3 [facility] Comment on above: Performed By: #### 7 [id number], 1466802, 1040518, 5364835, [id number] #### [facility] [address] [place] [address] Sodium [Moles/Vol] 137 mmol/L Normal 135-145 [facility] Comment on above: Performed By: #### 7 [id number], 3052869, 2837891, 7887301, [id number] #### [facility] [address] [place] [address] Urea nitrogen [Mass/Vol] 14 mg/dL Normal 5-21 [facility] Comment on above: Performed By: #### 7 [id number], 6724716, 7999109, 8063457, 86967211 #### [facility] [address] [place] [address] Urea nitrogen/Creatinine [Mass ratio] 20 No Units Normal 10-20 [facility] Comment on above: Performed By: #### 7 [id number], 3127508, 1347531, 6166350, 58914432 #### [facility] [address] [place] [address] CBC w/ Auto Diffon 2 Erythrocyte distribution width (RBC) [Ratio] 13.7 % Normal 10.9-14.2 [facility] Comment on above: Performed By: #### 7 [id number], 3905793, 1071153, 2170184, [id number] #### [facility] [address] [place] [address] Hematocrit (Bld) [Volume fraction] 41.6 % Normal 34.0-46.0 [facility] Comment on above: Performed By: #### 7 [id number], 0671951, 9245844, 7503040, [id number] #### [facility] [address] [place] [address] Hemoglobin (Bld) [Mass/Vol] 14.7 g/dL Normal 12.0-16.0 [facility] Comment on above: Performed By: #### 7 [id number], 2488420, 1665720, 4635288, 19721977 #### [facility] [facility] [address] [place] [id number] MCH (RBC) [Entitic mass] 32.5 pg Normal 27.0-34.0 [facility] Comment on above: Performed By: #### 7 [id number], [id number], [id number], [id number] #### [facility] [address] [place] [address] MCHC (RBC) [Mass/Vol] 35.4 g/dL Normal 31.4-36.0 [facility] Comment on above: Performed By: #### 7 [id number], [id number], [id number], [id number] #### [facility] [address] [place] [address] MCV (RBC) [Entitic vol] 91.8 fL Normal 80.0-100.0 [facility] Comment on above: Performed By: #### 7 [id number], [id number], [id number], [id number], [id number] #### [facility] [address] [place] [address] Platelet mean volume (Bld) [Entitic vol] 9.3 fL Normal 6.4-10.8 [facility] Comment on above: Performed By: #### 7 [id number], [id number], [id number], [id number], [id number] #### [facility] [address] [place] [address] Platelets (Bld) [#/Vol] 181.0 E9/L Normal 150.0-500.0 [facility] Comment on above: Performed By: #### 7 [id number], [id number], [id number], [id number], [id number] #### [facility] [address] [place] [address] RBC (Bld) [#/Vol] 4.5 E12/L Normal 4.3-5.9 [facility] Comment on above: Performed By: #### 7 [id number], [id number], [id number], [id number], [id number] #### [facility] [address] [place] [address] WBC corrected for nucl RBC Auto (Bld) [#/Vol] 6.4 E9/L Normal 4.0-11.0 [facility] Comment on above: Performed By: #### 7 [id number], [id number], [id number], [id number], [id number] #### [facility] [address] [place] [address] CHEMISTRYOrdered By: SYSTEM SYSTEM on 05-30-2022 Anion [...] rate/Area] mL/min/1.73 m2 Normal >=59mL/min/1. 73 m2 [facility] Chem S GFR/1.73 sq M.predicted among non-blacks MDRD (S/P/Bld) [Vol rate/Area] mL/min/1.73 m2 Normal >=59mL/min/1. 73 m2 [facility] Chem S Glucose [Mass/Vol] 115 mg/dL Normal 55 - 199 mg/dL [facility] Remisol Potassium [Moles/Vol] 4.1 mmol/L Normal 3.5 - 5.3 mmol/L [facility] Sodium [Moles/Vol] 137 mmol/L Normal 135 - 145 mmol/L [facility] Urea nitrogen [Mass/Vol] 14 mg/dL Normal 5 - 21 mg/dL [facility] Remisol Urea nitrogen/Creatinine [Mass ratio] 20 mg/mg Normal 10 - 20 [facility] Remisol CHEMISTRYOrdered By: Rubi jordan on 05-30-2022 HbA1c (Bld) [Mass fraction] 6.2 % High <=5.9% [facility] ChemAutoSS Consent for Treatmenton Consent for Treatment [id number]#1 .00CD:127 Normal [facility] HEMATOLOGYOrdered By: SYSTEM SYSTEM on 05-30-2022 Basophils/100 WBC (Bld) 0.6 % Normal 0.0 - 2.0 % [facility] HemeAutoSS Basophils/Leukocytes Auto (Bld) [Pure # fraction] 0.0 E9/L Normal 0.0 - 0.2 E9/L [facility] HemeAutoSS Eosinophils/100 WBC (Bld) 1.3 % Normal 0.0 - 8.0 % [facility] HemeAutoSS Eosinophils/Leukocyte s Auto (Bld) [Pure # [...] Normal 4.0 - 11.0 E9/L [facility] HemeAutoSS [id number] 05-30-2022 HbA1c (Bld) [Mass fraction] 6.2 % High <=5.9 [facility] Comment on above: Performed By: #### 7 [id number], [id number], [id number], [id number] #### [facility] [address] [place] [address] XR Chest 2 Viewson 2 XR Chest [...] (Electronic Signature): 05/30/2022 10:47 am Signed by: Mkie Oconnor M.D. Transcribed by: JODEE Technologist: HALEY Normal [facility] eGFRon 05-30-2022 GFR/1.73 sq M.predicted among blacks MDRD (S/P/Bld) [Vol rate/Area] mL/min/{1.73_m2} Normal >=59 [facility] Comment on above: Order Comment: Order added by Discern Expert. Result Comment: eGFR is race adjusted. AA=. Performed By: #### 7 [id number], [id number], [id number], [id number], [id number] #### [facility] [address] [place] [address] GFR/1.73 sq M.predicted among non-blacks MDRD (S/P/Bld) [Vol rate/Area] mL/min/{1.73_m2} Normal >=59 [facility] Comment on above: Order Comment: Order added by Discern Expert. Result Comment: Seat Mender arnulfo kidney disease could be indicated at eGFR's of less than 60 mL/min/1.73m2. Kidney failure is indicated at less than 15 mL/min/1.73m2. Performed By: #### 7 [id number], [id number], [id number], [id number], [id number] #### [facility] [address] [place] [address] Physician Orderon 05-08-2022 Physician Order [id number]#1 .00CD:127 Normal [facility] CBC AUTO DIFFon 11-11-2021 BASO # 0.0 103/ul Normal 0.0-0.1 [facility] Comment on above: Performed By: #### C BC #### [facility] [address] [place] [address] Dr. Farhat Mcneil Basophils/100 WBC (Bld) 0.6 % Normal 0.2-2.0 [facility] Comment on above: Performed By: #### C BC #### [facility] [address] [place] [address] Dr. Farhat Mcneil EO # 0.1 103/ul Normal 0.0-0.7 [facility] Comment on above: Performed By: #### C BC #### [facility] [address] [place] [address] Dr. Farhat Mcneil Eosinophils/100 WBC (Bld) 1.1 % Normal 0.9-7.0 [facility] Comment on above: Performed By: #### C BC #### [facility] [address] [place] [address] Dr. Farhat Mcneil Erythrocyte distribution width (RBC) [Ratio] 12.3 % Normal 11.0-15.0 [facility] Comment on above: Performed By: #### C BC #### [facility] [address] [place] [address] Dr. Farhat Mcneil Hematocrit (Bld) [Volume fraction] 43.6 % Normal 36.0-48.0 [facility] Comment on above: Performed By: #### C BC #### [facility] [address] [place] [address] Dr. Farhat Mcneil Hemoglobin (Bld) [Mass/Vol] 15.0 g/dL Normal 12.0-16.0 [facility] Comment on above: Performed By: #### C BC #### [facility] [address] [place] [address] Dr. Farhat Mcneil IG # 0.02 10e3/ul Normal 0.00-0.03 [facility] Comment on above: Performed By: #### C BC #### [facility] [address] [place] [address] Dr. Farhat Mcneil IG % 0.3 % Normal 0.0-0.5 [facility] Comment on above: Performed By: #### C BC #### [facility] [address] [place] [address] Dr. Farhat Mcneil LYMPH # 2.2 103/ul Normal 1.2-3.8 [facility] Comment on above: Performed By: #### C BC #### [facility] [address] [place] [address] Dr. Farhat Mcneil Lymphocytes/100 WBC (Bld) 31.0 % Normal 20.5-60.0 [facility] Comment on above: Performed By: #### C BC #### [facility] [address] [place] [address] Dr. Farhat Mcneil MANUAL DIFF REQ NO Normal [facility] Comment on above: Performed By: #### C BC #### [facility] [address] [place] [address] Dr. Farhat Mcneil MCH (RBC) [Entitic mass] 31.5 pg Normal 26.7-34.0 [facility] Comment on above: Performed By: #### C BC #### [facility] [address] [place] [address] Dr. Farhat Mcneil MCHC (RBC) [Mass/Vol] 34.4 g/dL Normal 29.9-35.2 [facility] Comment on above: Performed By: #### C BC #### [facility] [address] [place] [address] Dr. Farhat Mcneil MCV (RBC) [Entitic vol] 91.6 fL Normal 81.0-99.0 [facility] Comment on above: Performed By: #### C BC #### [facility] [address] [place] [address] Dr. Farhat Mcneil MONO # 0.5 103/ul Normal 0.3-0.8 [facility] Comment on above: Performed By: #### C BC #### [facility] [address] [place] [address] Dr. Farhat Mcneil Monocytes/100 WBC (Bld) 6.3 % Normal 1.7-12.0 [facility] Comment on above: Performed By: #### C BC #### [facility] [address] [place] [address] Dr. Farhat Mcneil NEUT # 4.3 103/ul Normal 1.4-6.5 [facility] Comment on above: Performed By: #### C BC #### [facility] [address] [place] [address] Dr. Farhat Mcneil Neutrophils/100 WBC (Bld) 60.7 % Normal 43.0-75.0 [facility] Comment on above: Performed By: #### C BC #### [facility] [address] [place] [address] Dr. Farhat Mcneil Platelet mean volume (Bld) [Entitic vol] 10.6 fL Normal 9.5-13.5 [facility] Comment on above: Performed By: #### C BC #### [facility] [address] [place] [address] Dr. Farhat Mcneil PLT 187 103/ul Normal 150-450 [facility] Comment on above: Performed By: #### C BC #### [facility] [address] [place] [address] Dr. Farhat Mcneil RBC 4.76 106/ul Normal 4.20-5.40 [facility] Comment on above: Performed By: #### C BC #### [facility] [address] [place] [address] Dr. Farhat Mcneil WBC 7.1 103/ul Normal 4.0-11.0 [facility] Comment on above: Performed By: #### C BC #### [facility] [address] [place] [address] Dr. Farhat Mcneil LIPID PROFILEon 11-11-2021 CHOL-HDL RATIO NORM SEE BELOW Normal [facility] Comment on above: Result Comment: 3.3 - 4.4 LOW RISK 4.4 - 7.1 AVERAGE RISK 7.1 - 11.0 MODERATE RISK >11.0 HIGH RISK Performed By: #### L IPID, T4, CMP, TSH #### [facility] [address] [address] [address] Farhat Mcneil Cholesterol [Mass/Vol] 286 mg/dL Critically high <=200 [facility] Comment on above: Performed By: #### L IPID, T4, CMP, TSH #### [facility] [address] [address] [address] Farhat Mcneil Cholesterol in HDL [Mass/Vol] 44 mg/dL Normal [facility] Comment on above: Performed By: #### L IPID, T4, CMP, TSH #### [facility] [address] [address] [address] Farhat Mcneil Cholesterol in LDL [Mass/Vol] 187.2 mg/dL Normal [facility] Comment on above: Performed By: #### L IPID, T4, CMP, TSH #### [facility] [address] [address] [address] Farhat Mcneil Cholesterol.total/Cho lesterol in HDL [Mass ratio] 6.5 {ratio} Normal [facility] Comment on above: Performed By: #### L IPID, T4, CMP, TSH #### [facility] [address] [address] [address] Farhat Mcneil HDL NORMAL > or = 60 mg/dl - LO W CARDIOVASCULAR RISK <40 mg/dl - HIGH CARDIOVASCULAR RISK Normal [facility] Comment on above: Performed By: #### L IPID, T4, CMP, TSH #### [facility] [address] [address] [address] Farhat Mcneil LDL CALC NORMAL SEE BELOW Normal [facility] Comment on above: Result Comment: <100 mg/dl OPTIMAL 100 - 129 mg/dl NEAR OR ABOVE OPTIMAL 130 - 159 mg/dl BORDERLINE HIGH 160 - 189 mg/dl HIGH >190 mg/dl VERY HIGH Performed By: #### L IPID, T4, CMP, TSH #### [facility] [address] [address] [address] Farhat Mcneil Triglyceride [Mass/Vol] 274 mg/dL Critically high <=150 [facility] Comment on above: Performed By: #### L IPID, T4, CMP, TSH #### [facility] [address] [place] [address] Dr. Farhat Mcneil VLDL CALC 54.8 mg/dL Normal [facility] Comment on above: Performed By: #### L IPID, T4, CMP, TSH #### [facility] [address] [place] [address] Dr. Farhat Mcneil PROF 14(COMP METB)on 022 Albumin [Mass/Vol] 3.8 g/dL Normal 3.5-5.0 [facility] Comment on above: Performed By: #### L IPID, T4, CMP, TSH #### [facility] [address] [place] [address] Dr. Farhat Mcneil Albumin/Globulin [Mass ratio] 1.0 {ratio} Normal [facility] Comment on above: Performed By: #### L IPID, T4, CMP, TSH #### [facility] [address] [place] [address] Dr. Farhat Mcneil ALP [Catalytic activity/Vol] 102 U/L Normal 38-126 [facility] Comment on above: Performed By: #### L IPID, T4, CMP, TSH #### [facility] [address] [place] [address] Dr. Farhat Mcneil ALT [Catalytic activity/Vol] 46 U/L Normal 9-52 [facility] Comment on above: Performed By: #### L IPID, T4, CMP, TSH #### [facility] [address] [place] [address] Dr. Farhat Mcneil Anion gap [Moles/Vol] 9.2 mmol/L Normal [facility] Comment on above: Performed By: #### L IPID, T4, CMP, TSH #### [facility] [address] [place] [address] Dr. Farhat Mcneil AST [Catalytic activity/Vol] 21 U/L Normal 14-36 [facility] Comment on above: Performed By: #### L IPID, T4, CMP, TSH #### [facility] [address] [place] [address] Dr. Farhat Mcneil Bilirubin [Mass/Vol] 0.3 mg/dL Normal 0.2-1.3 [facility] Comment on above: Performed By: #### L IPID, T4, CMP, TSH #### [facility] [address] [address] [address] Farhat Mcneil Calcium [Mass/Vol] 9.0 mg/dL Normal 8.4-10.2 [facility] Comment on above: Performed By: #### L IPID, T4, CMP, TSH #### [facility] [address] [place] [address] Dr. Farhat Mcneil Chloride [Moles/Vol] 103 mmol/L Normal 98-107 [facility] Comment on above: Performed By: #### L IPID, T4, CMP, TSH #### [facility] [address] [place] [address] Dr. Farhat Mcneil CO2 [Moles/Vol] 30.7 mmol/L Critically high 22.0-30.0 [facility] Comment on above: Performed By: #### L IPID, T4, CMP, TSH #### [facility] [address] [place] [address] Dr. Farhat Mcneil Creatinine [Mass/Vol] 0.75 mg/dL Normal 0.52-1.04 [facility] Comment on above: Performed By: #### L IPID, T4, CMP, TSH #### [facility] [address] [place] [address] Dr. Farhat Mcneil EGFR-AF SCOTTISH >60 Normal >=60 [facility] Comment on above: Performed By: #### L IPID, T4, CMP, TSH #### [facility] [address] [place] [address] Dr. Farhat Mcneil EGFR-NON AF SCOTTISH >60 Normal >=60 [facility] Comment on above: Performed By: #### L IPID, T4, CMP, TSH #### [facility] [address] [place] [address] Dr. Farhat Mcneil Globulin (S) [Mass/Vol] 3.7 g/dL Normal [facility] Comment on above: Performed By: #### L IPID, T4, CMP, TSH #### [facility] [address] [address] [address] Farhat Mcneil Glucose [Mass/Vol] 126 mg/dL Critically high 74-106 [facility] Comment on above: Performed By: #### L IPID, T4, CMP, TSH #### [facility] [address] [place] [address] Dr. Farhat Mcneil Potassium [Moles/Vol] 3.9 mmol/L Normal 3.4-5.0 [facility] Comment on above: Performed By: #### L IPID, T4, CMP, TSH #### [facility] [address] [address] [address] Farhat Mcneil Protein [Mass/Vol] 7.5 g/dL Normal 6.1-8.2 [facility] Comment on above: Performed By: #### L IPID, T4, CMP, TSH #### [facility] [address] [address] [address] Farhat Mcneil Sodium [Moles/Vol] 139 mmol/L Normal 137-145 [facility] Comment on above: Performed By: #### L IPID, T4, CMP, TSH #### [facility] [address] [place] [address] Dr. Farhat Mcneil Urea nitrogen [Mass/Vol] 11.0 mg/dL Normal 7.0-17.0 [facility] Comment on above: Performed By: #### L IPID, T4, CMP, TSH #### [facility] [address] [place] [address] Dr. Farhat Mcneil Urea nitrogen/Creatinine [Mass ratio] 14.7 mg/mg Normal [facility] Comment on above: Performed By: #### L IPID, T4, CMP, TSH #### [facility] [address] [place] [address] Dr. Farhat Mcneil T4on 11-11-2021 T4 [Mass/Vol] 7.60 ug/dL Normal 5.53-11.00 [facility] Comment on above: Performed By: #### L IPID, T4, CMP, TSH #### [facility] [address] [place], [place] [address] Dr. Farhat Mcneil TSHon 11-11-2021 TSH 2.278 uIU/mL Normal 0.470-4.680 [facility] Comment on above: Performed By: #### L IPID, T4, CMP, TSH #### [facility] [address] [place], [place] [address] Dr. Farhat Mcneil TSH RANGE SEE BELOW Normal [facility] Comment on above: Result Comment: <0.3 4 UIU/ml HYPERTHYROID 0.34-5.60 UIU/ml EUTHYROID >5.60 UIU/ml HYPOTHYROID Performed By: #### L IPID, T4, CMP, TSH #### [facility] [address] [place], [place] [address] Dr. Farhat Mcneil MRI Shoulder w/o + [...] BE CONSIDERED. Report reported and signed by Mora Salguero on 10/21/2021 0956 Normal [facility] [employer] Specialist Coding Summary.on 10-05-2021 Coding Summary. CD:[id number] G h0bWw+PGhlYWQ+US5NHEY bW38umEMbrR5PA3tHUV0Y PKCUJMBEKR2PCG2zfSH2O HusN3ZfrpZg YwprtJPhAB80IRw8IIR6l VkmEDeiwO5zjFLbK5q1Sb SdLQ38hB91BImnTXHqHnS 3LjZpbjsgbWFy T4cpMrHtyFWsZbl+PHRhY mxlIHdpZHRoPScxMDAlJy HtoAwqQX3xEz5sFGNgQGR vbGxhcHNlOiBj p0hcOHJmYGstWG2joLpoT 9LoyNI7LDTzg8m4Ax33yU I+BFCrGEY8xOgyPDdny76 7EnJqf7sbVTB1 kGNlJHchURM0W05hp5S9X DRsZWTnKCI9cYI1yN4ayJ lcbpnnX3ComEFfZiV8MMS 3sBXlzO2arXjv nesvbE6oKwv+Q87EOJ1JW QGZVV3SFhs1O7ByWfhqnC I+SZ42GMSsPJ42cNFhkRJ yd5jkcIu5AbAk ZVNyEIV0gCbvZOrxi5QzD GSjX69gtVAfu3I2DLGpaK gapSNvBlLubQW2qG4dMXq gcnngo5nxsdky Xlpay2ekkq55dQ84M68lT NesTVPcVXV8JCXjZCDujE szyd2veK4cTi2+HStli9n oc5cuqVl6WwQh PKOhmyXafKxkFND1m5WzU i69X5GxiPyio9UnLlr0sn 15hSJqg4I9sLM1GQabPQM vrP2rITgfWqB7 LDSbXlVlcU32eRRbQEefZ y7uiWhalRpwTD7hLNMdqf mmWGRqiG3bUPKqqXFlyQt hVP4uZEAmqelq g164EwFhKSV9YKRyfEFuD 3QkpO5mVrZoRJYsSCSdZ4 ZpbVPgWKmwW390BGygCrH 6OLMytlGaR9Hk TEMiaLhxEkO8t5T2Bi3Ep 9FlnwqxMVF9IEglDNRjKg B9ErIkDoZ8G7PaGhm7KIF gtIykWQ0xO1Av VMOlnrbmcosbjTB0XRPgS PEwkZ93cLVbYFnqFq3cw6 R5z470VLKdJMHzbL31Uv7 udDogMTBwdCBU iE9vixkap3npnaluXnZrK UOxJOy0IJd2QKWghSqeMc RiWUY0YxC3HUD4hKKilK4 isYbqjzhwcA4v Oyc+C18sxR9lKFR1IYG9u tndKCHmtuSnTC81ZG09Z1 RyPjwvdGFibGU+PGRpdiB myZnnZC0yMiXd b2vhi0XhPUedQ5UxFFAaS MmvRpg1AXZdQEA6gCY4yI 8zZFXoGYjag5H4uOM1A1X fsnQciz3rw3ct DTLhUWyiL13ywXIoj2W2A HQamSF3RFQlfHfdKuRapI 93Oyc+YIZkaKkym3XeQhk lt1rlr6lcrPo4 VnSlKWPzbgOmpMwuHKN3m 7OtWe46K19mDOciEHJlIZ YlDCEiTPWfvNoovc5cuM9 wIi8+PGNvbCB3 hYB3cC5iJENxEwL5KTjvZ 062DeOxlQJhQnxsw0moj5 wqeVy7IgQxCQLsaiEudCy tBXL6c0DpSv84 B43kRTqlSEMeGHAsMGSbR CWduFkbxj5rfT5cIx6+PC 3mo8nwjt38vX81nUY+PHR hDFM3vMgxBDgm LTJzwV3gLEriTfZ5SKJaP rYjtI44fDKaOUdlKj7zfH xwaDamZI4eSKQhvmpnh98 7ZoVuf6ewPZSz lAVcQCbeWBS9N98mx8D8E GLeXJFfPRT0vDL8rJ1loW lnbjogbGVmdDsgdmVydGl mWAagBJdhF454 IHRvcDsnPlBhdGllbnQgT aNsTKl3H1HuPgo0CCPsyV xgCE2knRKgZNddIz1haCk izNzfQM0hTQWx enfkl087ZbQki5fkYKWny DNlSJonTSL3W29he6I5XB YwSUHkTMG0wMQ0dU5hgTa nbjogbGVmdDsg zwKrhFwsGCwvWEeyI217Y HRvcDsnPkJpcnRoIERhdG M8LK98DM25eYFid2S8wMW 3L0FjXYSynkch iakkgZC8IYNcLIFmjL21L l8pwGogJd0oMZVqCBJ8TF BdrWMzW3SwtC4aIrQtQUO aGTQpM5FfcHRl VEnhT838ZMjmPiY6UZJxg vSvI6VqSPOhoWftJxG9v6 Q0Su4FX3L9XC36HX86rIW wu0L2qIN8N1Mi FWNpnntzwadxtKI0AQUyT QZftA51Ep5qtZriMa0zPV QeCCO3URIzwWRvI4AzfG3 yOiAjMDAwMDAw R9HliUQnOCrtE911KYhkS zC0YBIvrqPhC0NyDSTntM eyWcF0c7O1Tc7ZOYi9ZX5 3TC09qNPtn8K1 hPC8B4GeDBInsuklvoomi NV0IXNxTHWqyF54Xq0jzI keAm2kIXNvVWC8NQDccTC pN2FdjC9dMcNe KZFsDTBwT2CokGMeAGxhB 553CHmqVoO6GTYqgeOmU2 CdGUMtpOqgCdG4h3R5Gt0 NHYKvKC02TSC8 yPO2DO96CM01P6GaWthof GFibGU+PHRhYmxlIHdpZH RoPScxMDAlJyBzdHlsZT0 vLz4wPHJjUWPe oKrqqIHuSwDjo8yuTZYfM FqoOF6xqJnoZ1BddOF5XY Hxq0o4Az12F37oN0MdvTY +BACopSO2aTK1 hP4sPzFcCmJ1LOteG838M aUfmTBpWrxno8jfw4mtaB f0SkQ0TEWngaIhrAebMSR 4x1AwOn49T68j IHdpZHRoPSIxNSUiIHZhb Chumj7noX1yTr3+PGNvbC M5aYX7fP3fQwPdDgI4TNl gW051TlTuiQWz Jtmme7fzz1mudEe3BsAcB YQrrhTspJktLQT6o4QsJi 25I9WziPvih4MqMtw3fj7 4qJCpc8C3nHI2 J0SmZIPkqhzfpJCteFimP I4dBJMwvkmwVFTjnF3bZH JxR9z9LqBzHiX2DJntD4H yfiZ6VVYhfSCc GMemZRN2Z23et3Q1FCMxE JIjVLU8mBV0rJ3xuBktsg ogbGVmdDsgdmVydGljYWw uVJmqC256RUEw mTbcGTBkpI3gNAUwpNOwc ZoyBA9oLPImtgqyVo6KS8 JFLCBMVUNSRVRJQSBNPC9 3CJ58jPKof6T2 jIJ6O7QpLKCqmzfltbwlv RC5FCGwAHTrcW59rNCwTY jaPu0xe5P6v613ZDNtIVC pdA13Jp7wgFnk CTQpcMMHoT5axynsq9vrw fgwQxZoZTWtXAv8APi4DC QmrItbSdEsYLQ9MiJ3BDG 7pAFebL6fcIdl qckwaT3zLvw+MDkvMTEvM Ev0ESmjeOM+DLBgYFK2iX yrIOylAUBacI9bLBWqQ9c 2OcRjWqW9CQoa K7MbIEKljjfnSe06kR4nG jJoZgL9MYpdO2WbvpX5DK OkzPMhPHebIRR8Q63zb9C 0IECtCMAhBKG4 vUC6aC1kzShybobcuYDgp DsgdmVydGljYWwtYWxpZ2 46IHRvcDsnPjYwIFllYXJ wNB15XB28kBUk t1Z1iQI3L1MgELGbfzegc zetxXN6SSHyQCBixJ39cB PxHHoqQl7dz7K3q538MWA oIPTylQ78Bc3o wNucSIRuwBGEmH8qqchzk 0kuaeseLbEeKAVxLQu2YL k2JTVlaCeoKwBcTYC1SrZ 7NKU8gXOlzW8w cNzkdavwfQ8qVnh+RmVtY GhhVA48WM47pSNri2R8nT B3P4VnUTBpvomruckqxRQ 5LBExCBKmmQ73 zFCkVHlrWx6xg5V5i748K ZZiSFBonK29Xo7qpZthPC UjyXWNhD5dfizda8cgzqu gIzAwMDAwMDt0 SHx5WYBiyTrwHeCgBEG7P gH7LEX6nDResU2onMmpmk zwbK0gSty+F7D8wXB1iOD udDwvdGQ+PC90 wy35F0TxMgbtBqp9KZSoG GQ9aDO6fI9fPQNoZKuzj9 Z0bTX8C4KrzwZlyr1kh7c aVTXeQDiaI87c dFLjo7N7VJBssTU6HLAih OlcUhDmxD74Vfy+PGNvbG qth6AzHvrzg9aou1zuuDk 9IjMwJSIgdmFs mJjtKJQ9r4WmQg64D41bW HdpZHRoPSIzMCUiIHZhbG xglz4luM9kKa0+PGNvbCB 2iXF7kF6tZqZo QwD2CLktA746MpImcQOgO lrdz2crt3etxHl9MdXmIR ZsteFrfHwdWXX8i2XfYw5 7Y9VhaYkif3Ae Jeu8py41cRPyq6D7kKH3K 3BhZGRpbmctbGVmdDogMC 7cQFNxnlnbZSEoyE3kZNG mY5x0LiSaPtQ5 ZRsfE8AgtyI1BGZjeGKoX EDeqGXDqS8jqxmrq5vews mlXkJdOWHnUXk7RSy1RYJ saWduOiBsZWZ0 HmH4UIM9fTNklP2twBrbo fmvqP5zKag+IUz7q3vdkH GpPI5hyDS5FJ99ZZ07uPS fg1U1aQN9O1Sx VBBuipdbvhevuQW9FJGvO XTrhF20Zu6rxVkmIz1oJH RhCZX0CTGfvVFiI0AkeR5 yOiAjMDAwMDAw O2LleCAcLHykY581JZttX mZ9NOUjxmFiC7TpODMggB ulHwX5o1Z7Dq2GUU16ST3 6FX96zRGxz3N8 mFG4F9ZhMNUvjntrvauel TZ2SLTnHNUwmO40Sz0qqY iuIr6cOLEpNSA1OIUqxPC iP6SumP5qTzAj HQCkQYYwT6UvdRGjAEoqF 252ILblRxK7EZIopcIeR0 UzNXMtvGrsTnX9h8B9Ys3 TQg38KD18GD08 nZWqa8G1qVX0K6ChPMPxq btmerzwuFS7YRDdHHThmG 21Rm0ybDybDw9sYXDoUKW 0UWZkqDEsE4Jg dU6gJsJwUXMaTLKeJ7Gys RPrAQgbD269BObeEoP0VR SaprWsM7VwLBYnvApnSzT 2q3I8As8XGVsu hax7J0EbOfgioXP+PC90Y GHaTF26dGXhhFHbg5ztwX e6CkYaJIBsTQF6uXtiLVk fu6RcKHMzG35o bGFw (more content not included)... Normal [facility] Consent for Treatmenton 08-23 Consent for Treatment [id number]#1 .00CD:127 Normal [facility] NM Bone Scan 3 Phaseon 09-20 NM [...] 21.3 Imaging Post Administration (hrs): 3 Normal [facility] Physician Orderon 09-12-2021 Physician Order [id number]# 1.00CD:127 Normal [facility] MRI Shoulder w/o Lefton MRI Shoulder w/o Left HISTORY: Pain and [...] by Jackson Ma on 08/28/2021 0949 Normal [facility] Specialist FLUORO FOR SURGICAL PROCEDUR ESon 09-11-2020 [...] Phillip Corral MD 09/11/20 Final result Normal [facility] Rory, Chpo Incoming Radiant Results From [employer] - 09/11/2020 5:09 PM EST FLUORO FOR SURGICAL PROCEDURES : 09/11/2020 3:53 PM CLINICAL HISTORY: Lumbar Diskectomy . COMPARISON: None available. Intraoperative fluoroscopy was provided for Dr. Rios procedure. A total of 1 seconds of fluoroscopy was used, with 4 fluoroscopic stills saved. No diagnostic images were obtained. Please see Dr. Rios surgical notes for completeness. [place], [place] FLUORO FOR SURGICAL PROCEDURES : 09/11/2020 3:53 PM CLINICAL HISTORY: Lumbar Diskectomy . COMPARISON: None available. Intraoperative fluoroscopy was provided for Dr. Rios procedure. A total of 1 seconds of fluoroscopy was used, with 4 fluoroscopic stills saved. No diagnostic images were obtained. Please see Dr. Rios surgical notes for completeness. [place], [place] POCT Glucoseon 09-11-2020 Glucose [Mass/Vol] 145 mg/dL Critically high 60-115 M [facility] Comment on above: Performed By: #### P GLU #### [facility] [address] [facility] [place] [address] POC Performed on ACCU-CHE Normal [facility] Comment on above: Performed By: #### P GLU #### [facility] [address] [facility] [address] Glucose [Mass/Vol] 145 mg/dL High 60 - 115 mg/dl [place] Interpretation and review of laboratory results Abnormal [place] Performed on ACCU-CHEK [place] Glucose [Mass/Vol] 131 mg/dL Critically high 60-115 M [facility] Comment on above: Performed By: #### P GLU #### [facility] [address] [facility] [facility] [address] [facility] on above: Performed By: #### P GLU #### [facility] [address] [facility] [address] Glucose [Mass/Vol] 131 mg/dL High 60 - 115 mg/dl [place] Interpretation and review of laboratory results Abnormal [place] Performed on ACCU-CHEK [place] Surgical Specimenon 09-11-20 20 Surgical Specimen [facility] [address] [place] [address] FINAL SURGICAL PATHOLOGY REPORT Patient Name: JORDY DUNNE Accession No: [id number] Age Sex: 1960 Location: [facility] [id number] Account No: [id number] Collected: 09/11/2020 [facility] Rec No: [id number] Received: 09/12/2020 Attend Phys: FERNANDEZ RIOS Completed: 09/13/2020 Perform Phys: FERNANDEZ GABRIEL FINAL DIAGNOSIS: DISC- INTERVERTEBRAL DISC MATERIAL [...] one cassette after brief decalcification. ALIFA/ALIFA CPT: 02787 X1 [id number] X1 VENKATESH COTTON M.D. 09/13/2020 Electronically signed out by Page 1 of 1 [facility] Comment on above: Performed By: #### S UR #### [place] [id number] XR CHEST PORTABLEon 09-11-20 20 INR Coag (Bld) [Relative time] NO ACUTE ACTIVE CARDIOPULMONARY PROCESS [employer] EXAMINATION: CHEST PORTABLE VIEW CLINICAL HISTORY: Back pain COMPARISONS: None FINDINGS: Single views of the chest is submitted. The cardiac silhouette is enlarged. Pulmonary vascular unremarkable. Right sided trachea. No focal infiltrates. No Pneumothoraces. [employer] Rory, Chpo Incoming Radiant Results From [employer] - 09/11/2020 7:58 AM EST EXAMINATION: CHEST PORTABLE VIEW CLINICAL HISTORY: Back pain COMPARISONS: None FINDINGS: Single views of the chest is submitted. The cardiac silhouette is enlarged. Pulmonary vascular unremarkable. Right sided trachea. No focal infiltrates. No Pneumothoraces. IMPRESSION: NO ACUTE ACTIVE CARDIOPULMONARY PROCESS [employer] XR LUMBAR SPINE (MIN 4 VIEWS )on 09-11-2020 Rory, Chpo Incoming Radiant Results From [employer] - 09/11/2020 10:22 AM EST EXAMINATION: XR [...] show degenerative changes.. IMPRESSION NO ACUTE FRACTURE. [place] EXAMINATION: XR LUMBAR SPINE (MIN 4 [...] show degenerative changes.. IMPRESSION NO ACUTE FRACTURE. [place] APTTon 09-10-2020 aPTT Coag (Bld) [Time] 30.5 s [place] Comment on above: Effective 07/25/2020: Heparin Therapeutic Range: 64.0 98.0 seconds. CBC Auto Differentialon 08-22 Basophils (Bld) [#/Vol] 0.1 10*3/uL 0 - 0.2 K/uL [place] Basophils/100 WBC (Bld) 0.7 % [place] Eosinophils (Bld) [#/Vol] 0.0 10*3/uL 0 - 0.7 K/uL [place] Eosinophils/100 WBC (Bld) 0.2 % [place] Erythrocyte distribution width (RBC) [Ratio] 13.2 % 11.5 - 14.5 % [place] Hematocrit (Bld) [Volume fraction] 41.0 % 37 - 47 % [place] Hemoglobin (Bld) [Mass/Vol] 14.2 g/dL 12 - 16 g/dL [place] Interpretation and review of laboratory results Abnormal [place] Lymphocytes (Bld) [#/Vol] 2.9 10*3/uL 1 - 4.8 K/uL [place] Lymphocytes/100 WBC (Bld) 25.0 % [place] MCH (RBC) [Entitic mass] 32.9 pg High 27 - 31.3 pg [place] MCHC (RBC) [Mass/Vol] 34.6 % 33 - 37 % [place] MCV (RBC) [Entitic vol] 95.0 fL 82 - 100 fL [place] Monocytes (Bld) [#/Vol] 0.4 10*3/uL 0.2 - 0.8 K/uL [place] Monocytes/100 WBC (Bld) 3.8 % [place] Neutrophils Absolute 8.2 K/uL High 1.4 - 6 .5 K/uL [place] Neutrophils/100 WBC (Bld) 70.3 % [place] Platelets (Bld) [#/Vol] 196 10*3/uL 130 - 400 K/uL [place] RBC (Bld) [#/Vol] 4.32 10*6/uL [place] WBC (Bld) [#/Vol] 11.6 10*3/uL High 4.8 - 10.8 K/uL [place] CBC With Platelet and Differ entialon 09-10-2020 Basophils (Bld) [#/Vol] 0.1 10*3/uL Normal 0.0-0.2 [facility] Comment on above: Performed By: #### C BCWD #### [facility] [address] [place] [address] Basophils/100 WBC (Bld) 0.7 % Normal [facility] Comment on above: Performed By: #### C BCWD #### [facility] [address] [place] [address] Eosinophils (Bld) [#/Vol] 0.0 10*3/uL Normal 0.0-0.7 [facility] Comment on above: Performed By: #### C BCWD #### [facility] [address] [place] [address] Eosinophils/100 WBC (Bld) 0.2 % Normal [facility] Comment on above: Performed By: #### C BCWD #### [facility] [address] [place] [address] Erythrocyte distribution width (RBC) [Ratio] 13.2 % Normal 11.5-14.5 [facility] Comment on above: Performed By: #### C BCWD #### [facility] [address] [place] [address] Hematocrit (Bld) [Volume fraction] 41.0 % Normal 37.0-47.0 [facility] Comment on above: Performed By: #### C BCWD #### [facility] [address] [place] [address] Hemoglobin (Bld) [Mass/Vol] 14.2 g/dL Normal 12.0-16.0 [facility] Comment on above: Performed By: #### C BCWD #### [facility] [address] [place] [address] Lymphocytes (Bld) [#/Vol] 2.9 10*3/uL Normal 1.0-4.8 [facility] Comment on above: Performed By: #### C BCWD #### [facility] [address] [place] [address] Lymphocytes/100 WBC (Bld) 25.0 % Normal [facility] Comment on above: Performed By: #### C BCWD #### [facility] [address] [place] [address] MCH (RBC) [Entitic mass] 32.9 pg Critically high 27.0-31.3 [facility] Comment on above: Performed By: #### C BCWD #### [facility] [address] [place] [address] MCHC (RBC) [Mass/Vol] 34.6 % Normal 33.0-37.0 [facility] Comment on above: Performed By: #### C BCWD #### [facility] [address] [place] [address] MCV (RBC) [Entitic vol] 95.0 fL Normal 82.0-100.0 [facility] Comment on above: Performed By: #### C BCWD #### [facility] [address] [place] [address] Monocytes (Bld) [#/Vol] 0.4 10*3/uL Normal 0.2-0.8 [facility] Comment on above: Performed By: #### C BCWD #### [facility] [address] [place] [address] Monocytes/100 WBC (Bld) 3.8 % Normal [facility] Comment on above: Performed By: #### C BCWD #### [facility] [address] [place] [address] Neutrophils (Bld) [#/Vol] 8.2 10*3/uL Critically high 1.4-6.5 [facility] Comment on above: Performed By: #### C BCWD #### [facility] [address] [place] [address] Neutrophils/100 WBC (Bld) 70.3 % Normal [facility] Comment on above: Performed By: #### C BCWD #### [facility] [address] [place] [address] Platelets (Bld) [#/Vol] 196 10*3/uL Normal 130-400 [facility] Comment on above: Performed By: #### C BCWD #### [facility] [address] [place] [address] RBC (Bld) [#/Vol] 4.32 10*6/uL Normal 4.20-5.40 [facility] Comment on above: Performed By: #### C BCWD #### [facility] [address] [place] [address] WBC (Bld) [#/Vol] 11.6 10*3/uL Critically high 4.8-10.8 [facility] Comment on above: Performed By: #### C BCWD #### [facility] [address] [place] [address] COVID-19on 09-10-2020 COVID-19, NAAT Not Detected Normal Not Detect [facility] Comment on above: Result Comment: Amanda fermin NAAT: Negative results should be treated as [...] authorized laboratories. Fact sheet for Healthcare Providers: https://www.fda.gov/media/952270/download Fact sheet for Patients: https://www.fda.gov/media/956420/download METHODOLOGY: Isothermal Nucleic Acid Amplification Performed By: #### C OVPC #### [facility] [address] [facility] [address] SARS-CoV-2, NAAT Not Detected Not Detected [place] Comment on above: Rapid NAAT: Negative [...] authorized laboratories. Fact sheet for Healthcare Providers: https://www.fda.gov/media/992725/download Fact sheet for Patients: https://www.fda.gov/media/666490/download METHODOLOGY: Isothermal Nucleic Acid Amplification Comprehensive Metabolic Pane felipa 09-10-2020 Albumin [Mass/Vol] 3.9 g/dL Normal 3.5-4.6 [facility] Comment on above: Performed By: #### C MP #### [facility] [address] [facility] [address] ALP [Catalytic activity/Vol] 76 U/L Normal 40-130 [facility] Comment on above: Performed By: #### C MP #### [facility] [address] [place] [address] ALT [Catalytic activity/Vol] 22 U/L Normal 0-33 [facility] Comment on above: Result Comment: Spec imen hemolysis has exceeded the interference as defined by Shikha. Result may be affected. Suggest recollection if clinically indicated. Performed By: #### C MP #### [facility] [address] [place] [address] Anion gap [Moles/Vol] 9 mmol/L Normal 9-15 [facility] Comment on above: Performed By: #### C MP #### [facility] [address] [place] [address] AST [Catalytic activity/Vol] 18 U/L Normal 0-35 [facility] Comment on above: Result Comment: Spec imen hemolysis has exceeded the interference as defined by Shikha. Value may be falsely increased. Suggest recollection if clinically indicated. Performed By: #### C MP #### [facility] [address] [place] [address] Bilirubin [Mass/Vol] 0.3 mg/dL Normal 0.2-0.7 [facility] Comment on above: Performed By: #### C MP #### [facility] [address] [place] [address] Calcium [Mass/Vol] 9.2 mg/dL Normal 8.5-9.9 [facility] Comment on above: Performed By: #### C MP #### [facility] [address] [place] [address] Chloride [Moles/Vol] 103 mmol/L Normal 95-107 [facility] Comment on above: Performed By: #### C MP #### [facility] [address] [place] [address] CO2 [Moles/Vol] 28 mmol/L Normal 20-31 [facility] Comment on above: Performed By: #### C MP #### [facility] [address] [place] [address] Creatinine [Mass/Vol] 0.67 mg/dL Normal 0.50-0.90 [facility] Comment on above: Performed By: #### C MP #### [facility] [address] [place] [address] GFR/1.73 sq M predicted among blacks MDRD (S/P/Bld) [Vol rate/Area] mL/min/{1.73_m2} Normal >60 [facility] Comment on above: Result Comment: >60 mL/min/1.73m2 EGFR, calc. for ages 18 and older using the MDRD formula (not corrected for weight), is valid for stable renal function. Performed By: #### C MP #### [facility] [address] [place] [address] GFR/1.73 sq M.predicted MDRD (S/P/Bld) [Vol rate/Area] mL/min/{1.73_m2} Normal >60 [facility] Comment on above: Result Comment: >60 mL/min/1.73m2 EGFR, calc. for ages 18 and older using the MDRD formula (not corrected for weight), is valid for stable renal function. Performed By: #### C MP #### [facility] [address] [place] [address] Globulin (S) [Mass/Vol] 2.4 g/dL Normal 2.3-3.5 [facility] Comment on above: Performed By: #### C MP #### [facility] [address] [place] [address] Glucose [Mass/Vol] 189 mg/dL Critically high 70-99 M [facility] Comment on above: Performed By: #### C MP #### [facility] [address] [place] [address] Potassium [Moles/Vol] 4.2 mmol/L Normal 3.4-4.9 [facility] Comment on above: Result Comment: Spec imen hemolysis has exceeded the interference as defined by Shikha. Value may be falsely increased. Suggest recollection if clinically indicated. Performed By: #### C MP #### [facility] [address] [place] [address] Protein [Mass/Vol] 6.3 g/dL Normal 6.3-8.0 [facility] Comment on above: Performed By: #### C MP #### [facility] [address] [place] [address] Sodium [Moles/Vol] 140 mmol/L Normal 135-144 [facility] Comment on above: Performed By: #### C MP #### [facility] [address] [place] [address] Urea nitrogen [Mass/Vol] 17 mg/dL Normal 6-20 [facility] Comment on above: Performed By: #### C MP #### [facility] [address] [place] [address] Albumin [Mass/Vol] 3.9 g/dL 3.5 - 4.6 g/dL [place] ALP [Catalytic activity/Vol] 76 U/L 40 - 130 U/L [place] ALT [Catalytic activity/Vol] 22 U/L 0 - 33 U/L [place] Comment on above: Specimen hemolysis h as exceeded the interference as defined by Shikha. Result may be affected. Suggest recollection if clinically indicated. Anion gap [Moles/Vol] 9 mmol/L [place] AST [Catalytic activity/Vol] 18 U/L 0 - 35 U/L [place] Comment on above: Specimen hemolysis h as exceeded the interference as defined by Shikha. Value may be falsely increased. Suggest recollection if clinically indicated. Bilirubin Ql (U) 0.3 mg/dL 0.2 - 0.7 mg/dL [place] Calcium [Mass/Vol] 9.2 mg/dL 8.5 - 9.9 mg/dL [place] Chloride [Moles/Vol] 103 mmol/L [place] CO2 [Moles/Vol] 28 mmol/L [place] Creatinine [Mass/Vol] 0.67 mg/dL 0.5 - 0.9 mg/dL [place] GFR >60.0 >60 [place] Comment on above: >60 mL/min/1.73m2 EG FR, calc. for ages 18 and older using the MDRD formula (not corrected for weight), is valid for stable renal function. GFR Non- >60.0 >60 [place] Comment on above: >60 mL/min/1.73m2 EG FR, calc. for ages 18 and older using the MDRD formula (not corrected for weight), is valid for stable renal function. Globulin (S) [Mass/Vol] 2.4 g/dL 2.3 - 3.5 g/dL [place] Glucose [Mass/Vol] 189 mg/dL High 70 - 99 mg/dL [place] Interpretation and review of laboratory results Abnormal [place] Potassium [Moles/Vol] 4.2 mmol/L [place] Comment on above: Specimen hemolysis h as exceeded the interference as defined by Shikha. Value may be falsely increased. Suggest recollection if clinically indicated. Protein [Mass/Vol] 6.3 g/dL 6.3 - 8 g/dL [place] Sodium [Moles/Vol] 140 mmol/L [place] Urea nitrogen [Mass/Vol] 17 mg/dL 6 - 20 mg/dL [place] MRI LUMBAR SPINE WO CONTRAST on [...] Nando Dixon MD 09/10/20 Final result Normal [facility] Rory, Chpo Incoming Radiant Results From [employer] - 09/10/2020 4:27 PM EST STUDY IS REVIEWED WITH THE REFERRING NEUROSURGEON DR. FERNANDEZ RIOS AT 1552 HOURS ON 09/10/2020. L4-5 [...] superior facet joint spurring and/or ligamentous thickening. [place] STUDY IS REVIEWED WITH THE REFERRING NEUROSURGEON DR. FERNANDEZ RIOS AT 1552 HOURS ON 09/10/2020. L4-5 [...] superior facet joint spurring and/or ligamentous thickening. [place] Partial Thromboplastin Timeo n 09-10-2020 aPTT Coag (Bld) [Time] 30.5 s Normal 24.4-36.8 [facility] Comment on above: Result Comment: Effe ctive 07/25/2020: Heparin Therapeutic Range: 64.0 ? 98.0 seconds. Performed By: #### P TT #### [facility] [address] [place] [address] Prothrombin Timeon 0 INR Coag (PPP) [Relative time] 1.1 {INR} Normal [facility] Comment on above: Performed By: #### P T #### [facility] [address] [place] [address] PT Coag (PPP) [Time] 13.9 s Normal 12.3-14.9 [facility] Comment on above: Performed By: #### P T #### [facility] [address] [place] [address] Protime-INRon 09-10-2020 INR Coag (PPP) [Relative time] 1.1 {INR} [facility], [place] PT Coag (PPP) [Time] 13.9 s [facility], [place] XR CHEST PORTABLEon 09-10-20 20 XR CHEST PORTABLE EXAMINATION: CHEST PORTABLE VIEW CLINICAL HISTORY: Back pain COMPARISONS: None FINDINGS: Single views of the chest is submitted. The cardiac silhouette is enlarged. Pulmonary vascular unremarkable. Right sided trachea. No focal infiltrates. No Pneumothoraces. IMPRESSION: NO ACUTE ACTIVE CARDIOPULMONARY PROCESS Interpreted by: Phillip Corral MD Signed by: Phillip Corral MD 09/11/20 Final result Normal [facility] XR LUMBAR SPINE (MIN 4 VIEWS [...] Phillip Corral MD 09/11/20 Final result Normal [facility] Vital Signs Date Time Vital Sign Value Performing Clinician Facility 03-15-2025 16:02-0400 Body mass index (BMI) [Ratio] 30.24 kg/m2 Mela Daily [employer] Work Phone: [facility] 03-15-2025 16:02-0400 Body temperature 98.49 [degF] Mela Floresalessandro [employer] Work Phone: [facility] 03-15-2025 16:02-0400 Body weight 79.92 kg Melamarivel Floresalessandro [employer] Work Phone: [facility] 03-15-2025 16:02-0400 Diastolic blood pressure 80 mm[Hg] Mela Zuletamartitaz [employer] Work Phone: [facility] 03-15-2025 16:02-0400 Heart rate 83 /min Mela Merlynmartitaz [employer] Work Phone: [facility] 03-15-2025 16:02-0400 Respiratory rate 18 /min Mela Zuletamartitaz [employer] Work Phone: [facility] 03-15-2025 16:02-0400 SaO2% (BldA) [Mass fraction] 96 % Mela Zuletaleilani [employer] Work Phone: [facility] 03-15-2025 16:02-0400 Systolic blood pressure 132 mm[Hg] Mela Zuletamartitaz [employer] Work Phone: [facility] 02-20-2025 12:55-0400 Body mass index (BMI) [Ratio] 30.04 kg/m2 Juno Kong MD Work Phone: [facility] 02-20-2025 12:55-0400 Body weight 79.38 kg Juno Kong MD Work Phone: [facility] 02-20-2025 12:55-0400 Diastolic blood pressure 82 mm[Hg] Juno Kong MD Work Phone: [facility] 02-20-2025 12:55-0400 Systolic blood pressure 130 mm[Hg] Juno Kong MD Work Phone: [facility] 01-04-2025 09:27-0400 Body height 162.6 cm Mela Abimbola [employer] Work Phone: [facility] 01-04-2025 09:27-0400 Body mass index (BMI) [Ratio] 30.55 kg/m2 Mela Aichholz [employer] Work Phone: [facility] 01-04-2025 09:27-0400 Body temperature 96.6 [degF] Mela Aichholz [employer] Work Phone: [facility] 01-04-2025 09:27-0400 Body weight 80.74 kg Mela Aichholz [employer] Work Phone: [facility] 01-04-2025 09:27-0400 Diastolic blood pressure 86 mm[Hg] Mela Aichholz [employer] Work Phone: [facility] 01-04-2025 09:27-0400 Heart rate 81 /min Mela Aichholz [employer] Work Phone: [facility] 01-04-2025 09:27-0400 Respiratory rate 20 /min Mela Aichholz [employer] Work Phone: [facility] 01-04-2025 09:27-0400 SaO2% (BldA) [Mass fraction] 98 % Mela Aichholz [employer] Work Phone: [facility] 01-04-2025 09:27-0400 Systolic blood pressure 134 mm[Hg] Mela Aichholz [employer] Work Phone: [facility] 08-25-2024 09:37-0500 Diastolic blood pressure 92 mm[Hg] Mela Aichholz [employer] Work Phone: [facility] 08-25-2024 09:37-0500 Systolic blood pressure 146 mm[Hg] Mela Aichholz [employer] Work Phone: [facility] 08-25-2024 08:58-0500 Body height 162.6 cm Mela Aichholz [employer] Work Phone: [facility] 08-25-2024 08:58-0500 Body mass index (BMI) [Ratio] 30.31 kg/m2 Mela Aichholz [employer] Work Phone: [facility] 08-25-2024 08:58-0500 Body temperature 98.49 [degF] Mela Merlynholz [employer] Work Phone: [facility] 08-25-2024 08:58-0500 Body weight 80.11 kg Mela Markhholz [employer] Work Phone: [facility] 08-25-2024 08:58-0500 Heart rate 69 /min Mela Aichholz [employer] Work Phone: [facility] 08-25-2024 08:58-0500 Respiratory rate 18 /min Mela Aichholz [employer] Work Phone: [facility] 08-25-2024 08:58-0500 SaO2% (BldA) [Mass fraction] 96 % Mela Markhholz [employer] Work Phone: [facility] 05-26-2024 09:03-0400 Body height 162.6 cm Mela Markhholz [employer] Work Phone: [facility] 05-26-2024 09:03-0400 Body mass index (BMI) [Ratio] 29.39 kg/m2 Mela Markhholz [employer] Work Phone: [facility] 05-26-2024 09:03-0400 Body temperature 97.81 [degF] Mela Markhholz [employer] Work Phone: [facility] 05-26-2024 09:03-0400 Body weight 77.66 kg Mela Markhholz [employer] Work Phone: [facility] 05-26-2024 09:03-0400 Diastolic blood pressure 84 mm[Hg] Meal Aichholz [employer] Work Phone: [facility] 05-26-2024 09:03-0400 Heart rate 72 /min Mela Aichholz [employer] Work Phone: [facility] 05-26-2024 09:03-0400 Respiratory rate 18 /min Mela Aichholz [employer] Work Phone: [facility] 05-26-2024 09:03-0400 SaO2% (BldA) [Mass fraction] 97 % Mela Abimbola [employer] Work Phone: [facility] 05-26-2024 09:03-0400 Systolic blood pressure 138 mm[Hg] Mela Abimbola [employer] Work Phone: [facility] 09-11-2020 17:30-0500 BP Diastolic 94 mm[Hg] [place] 09-11-2020 17:30-0500 BP Systolic 182 mm[Hg] [place] 09-11-2020 17:30-0500 Pulse (Heart Rate) 60 /min [place] 09-11-2020 17:30-0500 Pulse Oximetry 94 % [facility] [employer] [place] 09-11-2020 17:30-0500 Respiratory Rate 19 /min [employer] [place] 09-11-2020 16:50-0500 Body Temperature 98.01 [degF] Gabriel [employer] [place] 09-10-2020 10:41-0500 BMI (Body Mass Index) 27.46 kg/m2 [place] 09-10-2020 10:41-0500 Body weight 72.58 kg [place] 09-10-2020 10:41-0500 Height 162.6 cm [facility] [place] Encounters Encounter Date Encounter Type Care Provider Facility Start: 03-15-2025 End: 03-15-2025 Office outpatient visit 15 minutes Mela [employer] Work Phone: [facility] Comment on above: Left foot pain (Prim angela Dx); Essential hypertension ; Obesity (BMI 30-39.9); Type 2 diabetes mellitus without complication, without long-term current use of insulin (HCC); Type 2 diabetes mellitus with diabetic nephropathy (HCC); Type 2 diabetes mellitus with other specified complication (HCC); Mixed hyperlipidemia Start: 03-15-2025 End: 03-15-2025 Bamboo flowsheet [employer]ela [employer] Work Phone: [facility] Start: 03-15-2025 End: 03-15-2025 Bamboo flowsheet [employer]ela [employer] Work Phone: [facility] Start: 02-20-2025 End: 02-20-2025 Bamboo flowsheet Juno Kong MD Work Phone: [facility] Start: 02-20-2025 End: 02-20-2025 Bamboo flowsheet Juno Kong MD Work Phone: [facility] Start: 02-20-2025 End: 02-20-2025 Initial preventive medicine new patient 40-64yrs Juno Kong MD Work Phone: [facility] Comment on above: Well woman exam with routine gynecological exam (Primary Dx); Screening for HPV (human papillomavirus); Other screening mammogram; Cervical cancer screening Start: 02-20-2025 End: 02-20-2025 Patient encounter procedure Juno Kong MD Work Phone: [facility] Work Phone: Start: 02-20-2025 End: 02-20-2025 ambulatory JUNO KONG Not Available Start: 01-04-2025 End: 01-04-2025 Bamboo flowsheet Mela Daily [employer] Work Phone: [facility] Start: 01-04-2025 End: 01-04-2025 Bamboo flowsheet Mela Abimbola [employer] Work Phone: [facility] Start: 01-04-2025 End: 01-04-2025 Office outpatient visit 25 minutes Mela Daily [employer] Work Phone: [facility] Comment on above: Essential hypertensi on (CMS/HCC) (Primary Dx); Obesity (BMI 30-39.9); Mixed hyperlipidemia (CMS/HCC) Start: 01-04-2025 End: 04-16-2025 ambulatory MELA AICHHOLZ Not Available Start: 11-29-2024 End: 11-29-2024 ambulatory MEAL AICHHOLZ Not Available Start: 11-28-2024 End: 11-28-2024 ambulatory HERNÁN FLORES Not Available Start: 08-25-2024 End: 08-25-2024 Bamboo flowsheet Mela Aichholz [employer] Work Phone: [facility] Start: 08-25-2024 End: 08-25-2024 Bamboo flowsheet Mela Aichholz [employer] Work Phone: [facility] Start: 08-25-2024 End: 08-25-2024 Office outpatient visit 25 minutes Mela Aichholz [employer] Work Phone: [facility] Comment on above: Type 2 diabetes [...] Start: 07-21-2024 End: 07-21-2024 Refill Mela Aichholz [employer] Work Phone: [facility] Comment on above: Essential hypertensi on (CMS/HCC) Start: 05-26-2024 End: 05-26-2024 Bamboo flowsheet Mela Aichholz [employer] Work Phone: [facility] Start: 05-26-2024 End: 05-26-2024 Bamboo flowsheet Mela Aichholz [employer] Work Phone: [facility] Start: 05-26-2024 End: 05-26-2024 Office outpatient visit 25 minutes Mela Aichholz [employer] Work Phone: [facility] Comment on above: Essential hypertensi on (CMS/HCC) (Primary Dx); Type 2 diabetes mellitus without complication, without long-term current use of insulin (CMS/HCC); Overweight (BMI 25.0-29.9); Tobacco dependence Start: 05-26-2024 End: 05-26-2024 ambulatory MELA AICHHOLZ Not Available Start: 05-19-2024 End: 05-19-2024 Clinisync Result Encounter Mela Aichholz [employer] Work Phone: [facility] Unsolicited Start: 05-19-2024 End: 05-19-2024 Clinisync Result Encounter Mela Aichholz [employer] Work Phone: [facility] Unsolicited Start: 05-10-2024 End: 05-10-2024 Refill Mela Aichholz [employer] Work Phone: [facility] Comment on above: Essential hypertensi on (CMS/HCC) Start: 04-25-2024 End: 04-25-2024 ambulatory MELA AICHHOLZ Not Available Start: 10-27-2023 Refill Mela Aichholz [employer] Work Phone: [facility] Comment on above: Mixed hyperlipidemia (CMS/HCC) (Primary Dx) Start: 09-05-2022 End: 09-06-[address] EVAN GILLESPIE Facility: Start: 05-30-2022 End: 05-31-2022 ambulatory Orlando Cole Facility:[facility] Start: 05-30-2022 End: 05-30-2022 Patient encounter procedure Orlando Cole [facility] Start: 11-12-2021 Encounter for genera l adult medical examination without abnormal findings DR EVAN GILLESPIE [facility] Start: 11-11-2021 End: 11-12-[address] EVAN GILLESPIE Facility: Start: 11-11-2021 End: 11-12-2021 Encounter for general adult medical examination without abnormal findings DR EVAN GILLESPIE Facility:[facility] Start: 09-20-2021 End: 09-21-2021 ambulatory Cameron Singleton Facility:[facility] Start: 09-10-2020 End: 09-11-2020 Evaluation and management of inpatient SR EVAN GILLESPIE [facility] Start: 09-10-2020 End: 09-11-2020 Evaluation and management of inpatient Fernandez Basilio Rios Work Phone: [facility] Comment on above: Right leg weakness ( Primary Dx); Protruded lumbar disc; Postoperative pain Procedures Date Procedure Procedure Detail Performing Clinician Start: 03-15-2025 Hemoglobin glycosylated a1c Mela Abimbola [employer] Work Phone: Start: 10-07-2024 Mammography Mela Markallisonallison sagarz [employer] Work Phone: Start: 08-25-2024 Hemoglobin glycosylated a1c Mela Abimbola [employer] Work Phone: Start: 05-19-2024 MLR HEMOGLOBIN A1C Mela Abimbola [employer] Work Phone: Start: 09-30-2023 Mammography Mela Markallisonallison roselia [employer] Work Phone: Start: 09-11-2020 Fluoroscopy during operation Fernandez Rios Work Phone: Start: 09-11-2020 Gluc bld [...] Start: 09-10-2020 Comprehensive metabo lic panel Celsa Antony Alexander Work Phone: Start: 09-10-2020 Prothrombin time Celsa Alexander Work Phone: Start: 09-10-2020 Thromboplastin time partial plasma/whole blood Celsa Alexnader Work Phone: Start: 09-10-2020 Mri spinal canal lum bar w/o contrast material Celsa Alexander Work Phone: Start: 09-21-2012 Colonoscopy Mela veloz NP Work Phone: Plan of Treatment Date Care Activity Detail Author Start: 06-02-2026 Glaucoma screening Diabetes: R etinopathy Screening [facility] Start: 12-12-2025 Urine screening for protein Diabetes: Urine Protein Screening [facility] Start: 11-28-2025 End: 11-28-2025 Patient encounter procedure 11/28/2025 8:35 AM EDT Office Visit [facility] [address] [place] [address] Hernán Flores MD [address] [place] [address] [facility] Start: 10-08-2025 End: 04-18-2026 DBT Breast - bilateral screening Bilateral screening mammogram with tomosynthesis Imaging Routine Other screening mammogram Expected: 10/08/2025, Expires: 04/18/2026 [facility] Comment on above: Expected: 10/08/2025 , Expires: 04/18/2026 Start: 10-07-2025 Screening for malign ant neoplasm of breast Mammogram [facility] Start: 06-15-2025 Hemoglobin A1c measurement Le betes: Hemoglobin A1C [facility] Start: 04-10-2025 End: 04-10-2025 Patient encounter procedure 04/10/2025 9:20 AM EDT Office Visit [facility] [address] [place] [phone] Mela Daily NP [address] [place] [phone] [facility] Start: 04-05-2025 End: 01-04-2026 Alanine aminotransferase [Enzymatic activity/volume] in Serum or Plasma ALT Lab Routine Mixed hyperlipidemia (CMS/HCC) Expected: 04/05/2025 (Approximate), Expires: 01/04/2026 [facility] Comment on above: Expected: 04/05/2025 (Approximate), Expires: 01/04/2026 Start: 04-05-2025 End: 01-04-2026 Aspartate aminotransferase [Enzymatic activity/volume] in Serum or Plasma AST Lab Routine Mixed hyperlipidemia (CMS/HCC) Expected: 04/05/2025 (Approximate), Expires: 01/04/2026 [facility] Comment on above: Expected: 04/05/2025 (Approximate), Expires: 01/04/2026 Start: 04-05-2025 End: 01-04-2026 Lipid 1996 panel - Serum or Plasma Lipid panel Lab Routine Mixed hyperlipidemia (CMS/HCC) Expected: 04/05/2025 (Approximate), Expires: 01/04/2026 [facility] Work Phone: Comment on above: Expected: 04/05/2025 (Approximate), Expires: 01/04/2026 Start: 04-04-2025 End: 04-04-2025 Patient encounter procedure 04/04/2025 9:15 AM EDT Consult [facility] [address] [phone] Alex Teran DO [address] [facility] [address] [place] [address] [facility] Start: 03-15-2025 End: 03-15-2025 Patient encounter procedure 03/15/2025 4:00 PM EDT Office Visit [facility] [address] [place] [phone] Mela Daily NP [address] [place] [phone] Essential hypertension (Primary Dx); Obesity (BMI 30-39.9); Type 2 diabetes mellitus without complication, without long-term current use of insulin (HCC); Type 2 diabetes mellitus with diabetic nephropathy (HCC); Type 2 diabetes mellitus with other specified complication (HCC); Hyperlipidemia, unspecified [facility] Comment on above: Essential hypertensi on (Primary Dx); Obesity (BMI 30-39.9); Type 2 diabetes mellitus without complication, without long-term current use of insulin (HCC); Type 2 diabetes mellitus with diabetic nephropathy (HCC); Type 2 diabetes mellitus with other specified complication (HCC); Hyperlipidemia, unspecified Start: 03-15-2025 End: 03-15-2026 XR Foot - left 3 Views XR foot 3+ views left Imaging Routine Left foot pain Expected: 03/15/2025, Expires: 03/15/2026 [facility] Work Phone: Comment on above: Expected: 03/15/2025 , Expires: 03/15/2026 Start: 03-01-2025 Hemoglobin A1c measurement Le betes: Hemoglobin A1C [facility] Start: 02-20-2025 End: 02-20-2025 Patient encounter procedure 02/20/2025 1:00 PM EDT Office Visit [facility] [address] [facility] [address] [place] [phone] Juno Kong MD [address] [facility] [address] [place] [address] Well woman exam with routine gynecological exam; Cervical cancer screening; Screening for HPV (human papillomavirus); Other screening mammogram [facility] Comment on above: Well woman exam with routine gynecological exam; Cervical cancer screening; Screening for HPV (human papillomavirus); Other screening mammogram Start: 01-04-2025 End: 01-04-2025 Patient encounter procedure 01/04/2025 9:20 AM EDT Office Visit [facility] [address] [place] [phone] Mela Daily NP [address] [place] [phone] Obesity (BMI 30-39.9) (Primary Dx); Essential hypertension (CMS/HCC); Cigarette nicotine dependence without complication [facility] Comment on above: Obesity (BMI 30-39.9 ) (Primary Dx); Essential hypertension (CMS/HCC); Cigarette nicotine dependence without complication Start: 11-28-2024 End: 11-28-2024 Patient encounter procedure 11/28/2024 8:35 AM EDT Office Visit [facility] [address] [place] [address] Hernán Flores MD [address] [place] [address] [facility] Start: 11-23-2024 Hemoglobin A1c measurement Le betes: Hemoglobin A1C [facility] Start: 11-21-2024 Screening for malign ant neoplasm of cervix Cervical Cancer Screening [facility] Comment on above: Postponed from 06/01 (Patient Refused) Start: 11-21-2024 Screening for malign ant neoplasm of colon Colorectal Cancer Screening [facility] Comment on above: Postponed from 06/01 (Patient Refused) Start: 09-30-2024 Screening for malign ant neoplasm of breast Mammogram [facility] Start: 09-26-2024 Urine screening for protein Diabetes: Urine Protein Screening [facility] Start: 08-25-2024 End: 08-25-2025 CBC W Auto Differential panel - Blood CBC and differential Lab Routine Tobacco dependence Expected: 08/25/2024 (Approximate), Expires: 08/25/2025 [facility] Comment on above: Expected: 08/25/2024 (Approximate), Expires: 08/25/2025 Start: 08-25-2024 End: 08-25-2025 Comprehensive metabolic 2000 panel - Serum or Plasma Comprehensive metabolic panel Lab Routine Essential hypertension (CMS/HCC) Type 2 diabetes mellitus without complication, without long-term current use of insulin (CMS/HCC) Expected: 08/25/2024 (Approximate), Expires: 08/25/2025 [facility] Comment on above: Expected: 08/25/2024 (Approximate), Expires: 08/25/2025 Start: 08-25-2024 End: 08-25-2025 Lipid 1996 panel - Serum or Plasma Lipid panel Lab Routine Type 2 diabetes mellitus without complication, without long-term current use of insulin (CMS/HCC) Expected: 08/25/2024 (Approximate), Expires: 08/25/2025 [facility] Comment on above: Expected: 08/25/2024 (Approximate), Expires: 08/25/2025 Start: 08-25-2024 End: 10-26-2025 MG Breast - bilateral Screening Bilateral screening mammogram Imaging Routine Encounter for screening mammogram for malignant neoplasm of breast Expected: 08/25/2024 (Approximate), Expires: 10/26/2025 [facility] Work Phone: Comment on above: Expected: 08/25/2024 (Approximate), Expires: 10/26/2025 Start: 08-25-2024 End: 08-25-2025 Microalbumin/Creatinine panel in random Urine Microalbumin / creatinine, urine ratio Lab Routine Essential hypertension (CMS/HCC) Type 2 diabetes mellitus without complication, without long-term current use of insulin (CMS/HCC) Expected: 08/25/2024 (Approximate), Expires: 08/25/2025 [facility] Comment on above: Expected: 08/25/2024 (Approximate), Expires: 08/25/2025 Start: 08-25-2024 End: 08-25-2025 Urinalysis complete panel - Urine Urinalysis with reflex microscopic (clean catch) Lab Routine Essential hypertension (CMS/HCC) Type 2 diabetes mellitus without complication, without long-term current use of insulin (CMS/HCC) Tobacco dependence Expected: 08/25/2024 (Approximate), Expires: 08/25/2025 [facility] Comment on above: Expected: 08/25/2024 (Approximate), Expires: 08/25/2025 Start: 08-25-2024 End: 08-25-2024 Patient encounter procedure [facility] Comment on above: Essential hypertensi on (CMS/HCC) (Primary Dx); Type 2 diabetes mellitus without complication, without long-term current use of insulin (CMS/HCC); Overweight (BMI 25.0-29.9); Tobacco dependence; Colon cancer screening; Encounter for screening mammogram for malignant neoplasm of breast; Mixed hyperlipidemia ([facility]) Start: 08-21-2024 Screening for malign ant neoplasm of cervix Cervical Cancer Screening [facility] Comment on above: Postponed from 06/01 (Other Medical Reasons) Start: 07-22-2024 Glaucoma screening Diabetes: R etinopathy Screening [facility] Comment on above: Postponed from 06/01 (Other Medical Reasons) Start: 07-21-2024 Influenza vaccination Influenza Vacc ine (#1) [facility] Comment on above: Postponed from 05/22 (Patient Does Not Have Time) Start: 05-26-2024 End: 05-26-2024 Patient encounter procedure [facility] Comment on above: Type 2 diabetes milana itus without complication, without long- term current use of insulin ([facility]) Start: 05-19-2024 Hemoglobin A1c measurement Le betes: Hemoglobin A1C [facility] Start: 01-07-2024 End: 01-07-2024 Patient encounter procedure 01/07/2024 9:40 AM EDT Office Visit [facility] [address] [place] [address] Mela Daily NP [address] [place] [address] [facility] Start: 11-20-2023 Screening for malign ant neoplasm of cervix Cervical Cancer Screening [facility] Comment on above: Postponed from 06/01 (Other Medical Reasons) Start: 11-20-2023 Screening for malign ant neoplasm of colon Colorectal Cancer Screening [facility] Comment on above: Postponed from 06/01 (Other Medical Reasons) Start: 11-10-2023 End: 11-10-2023 Patient encounter procedure 11/10/2023 8:30 AM EST Office Visit [facility] [address] [place] [phone] Hernán Flores MD [address] [place] [address] [facility] Start: 09-21-2022 Screening for malign ant neoplasm of colon [facility] Start: 08-29-2022 Hemoglobin A1c measurement Le betes: Hemoglobin A1C [facility] Start: 09-24-2020 End: 09-24-2020 Office Visit 09/24/2020 Office Visit Neurosurgery Fernandez Rios MD [address] [facility] [facility], [address] [place] [id number] [employer] Start: 05-22-2020 Influenza vaccination Flu vaccine (# 1) [place], [place] Start: 2011 Screening for malign ant neoplasm of breast Breast cancer screen [place], [place] Start: 2011 Screening for malign ant neoplasm of colon Colon cancer screen colonoscopy [place], [place] Start: 2011 Shingles Vaccine (1 of 2) Rachel gles Vaccine (1 of 2) [place] Start: 2001 Diabetes screen Diabetes screen [place], [place] Start: 2001 Lipid panel Lipid screen [place], [place] Start: 1991 Screening for malign ant neoplasm of cervix [facility] Start: 1982 Screening for malign ant neoplasm of cervix [facility] Start: 1980 DTaP/Tdap/Td vaccine (1 - Tdap) DTaP/Tdap/Td vaccine (1 - Tdap) [place] Start: 1980 Urine screening for protein Diabetes: Urine Protein Screening [facility] Start: 1976 HIV screening HIV screen [place], [place] Start: 1971 Glaucoma screening Diabetes: R etinopathy Screening [facility] Start: 1961 Hepatitis C screening Hepatitis C sc reen [place], [place] Start: 1961 Screening for malign ant neoplasm of colon [facility] EKG 12 Lead - Chest Pain EKG 12 Lead - Chest Pain ECG STAT 09/10/2020 4:45 PM EST [place], [place] IGP, APT HPV,RFX 16/18,45 IGP, A PT HPV,RFX 16/18,45 Lab Routine Screening for HPV (human papillomavirus) Cervical cancer screening Ordered: 02/20/2025 [facility] Work Phone: Comment on above: Ordered: 02/20/2025 Oxygen therapy [[facility] Data Set] Initiate Oxygen Therapy Protocol Respiratory Care Routine Daily until discontinued starting 09/10/2020 [place] Comment on above: Daily until disconti nued starting 09/10/2020 Surgical Pathology Surgical Path ology Lab Routine Release Upon Ordering for 1 Occurrences starting 09/11/2020 [place] Comment on above: Release Upon Orderin g for 1 Occurrences starting 09/11/2020 Immunizations Immunization Date Immunization Notes Care Provider [facility] 07-08-2024 influenza, injectabl e, madin griffin canine kidney, preservative free Mela Aichholz [employer] Work Phone: [facility] 09-19-2023 influenza, injectabl e, quadrivalent, preservative free Mela Aichholz [employer] Work Phone: [facility] 09-19-2023 influenza virus vacc ine, unspecified formulation Mela Aichholz [employer] Work Phone: [facility] 09-04-2021 influenza, injectabl e, quadrivalent, preservative free Mela Aichholz [employer] Work Phone: [facility] 11-06-2020 pneumococcal polysaccharide vaccine, 23 valent Mela Aichholz [employer] Work Phone: [facility] 06-28-2020 influenza, injectabl e, quadrivalent, preservative free Mela Aichholz [employer] Work Phone: [facility] 08-31-2018 Influenza, injectabl e, Madin Sidney Canine Kidney, preservative free, quadrivalent Mela Aichholz [employer] Work Phone: [facility] Payers Date Payer Category Payer [facility] [id number] [id number] 2015 Unknown BCBS BCBS [id number] 2015-Present [phone] [address] [place] [address] [id number] 1961 Unknown [id number]. 182 1961 Unknown [id number] [id number]. 727 1961 Unknown [id number] [id number]. 727 1961 Unknown [id number] [id number]. 593 1961 Unknown [id number] [id number]. 593 1961 Unknown [id number] 2.16.840.1.142785.3.579.2. 1259 1961 Unknown [id number] [id number]. 1259 1961 Unknown [id number] [id number]. 1259 1961 Unknown [id number] 2.16.840.1.841518.3.579.2. 1259 1961 Unknown [id number] [id number]. 1259 1961 Unknown [id number] [id number]. 1259 1961 Unknown [id number] [id number]. 1259 1959 Unknown [id number] Social History Date Type Detail Facility Start: 09-11-2020 End: 02-20-2025 Tobacco smoking status NHIS Former smoker [facility] End: 09-21-2022 History of tobacco use Cigarette Smoker [facility] [place] Start: 09-11-2020 End: 08-25-2023 Cigarettes smoked current (pack per day) - Reported [facility] Start: 09-11-2020 End: 02-20-2025 Tobacco use and exposure [facility] Start: 09-11-2020 Alcohol intake Lifetime non-d shobha (finding) [place] Start: 09-10-2020 History SDOH Alcohol Frequency 1 [place] Start: 1960 Sex Assigned At Not on file [place] Exposure to SARS-CoV -2 (event) Not sure [place] Tobacco smoking status No Smokin g Status Entered [facility] Start: 08-25-2023 End: 03-15-2025 Sex Assigned At Female [facility] Start: 08-25-2023 Tobacco smoking stat us WAIS Smokes tobacco daily [facility] Start: 10-05-2023 End: 03-15-2025 Alcohol intake Current drinker of alcohol (finding) [facility] Within the last year , have you been afraid of your partner or ex-partner? No [facility] Do you belong to any clubs or organizations such as amish groups, unions, fraternal or athletic groups, or [...] Not at all [facility] (I/We) worried wheprice er (my/our) food would run out before (I/we) got money to buy more. Never true [facility] Start: 08-25-2023 Tobacco Comment 10-19 cigarettes/day [facility] Start: 08-25-2023 Alcohol Comment 1-2 drinks mon thly or less, caffeine 1-2 cups per day [facility] End: 09-21-2022 History of tobacco use Current smoker [facility] Medical Equipment Procedure Code Equipment Code Equipment Origin al Text Equipment Identifier Dates Daily Use as instructed [id number] Start: 01-07-2024 End: 01-06-2025 1 each Daily [id number] Start: 01-07-2024 End: 08-25-2024 Daily Use as instructed [id number] Start: 08-25-2024 End: 08-25-2025 1 each Daily [id number] Start: 08-25-2024 Daily Use as instructed [id number] Start: 11-29-2024 End: 11-29-2025 1 each Daily [id number] Start: 11-29-2024 End: 03-15-2025 Clinical Notes 05-26-2024 to 03-15-2025 Mela Daily NP - 03/15/2025 4:35 PM NANDA NUÑEZ - 03/15/2025 4:00 PM Delaney Daily NP - 03/15/2025 4:00 PM Delaney Daily NP - 03/15/2025 7:24 AM EDTPatient Instructions Note Date & Type Note Facility 03-15-2025 History of Presen t illness Narrative Associated Problem(s): Left foot pain Check xray Indomethacin prn Discussed DD: gout, DN, stress fracture Keep fu appt Left foot pain-started about 2 weeks ago shooting pain to the toes. Images from the original note were not included. Jordy Dunne is a 64 y.o. female presents with chief complaint of Diabetes HPI: Left foot pain: X2 weeks, shooting pain, no trauma, +swelling pain with walking , no ankle pain, no swelling to leg No hx of gout, +family [...] Laterality Date BACK SURGERY COLONOSCOPY W/ BIOPSIES 2012 Colonic polyps, Hemorrhoids [...] Size: Adult long) Pulse 83 Temp 98.5 F (Temporal) Resp 18 Wt 176 lb 3.2 oz SpO2 96% BMI 30.24 kg/m OB Status Hysterectomy Smoking Status Former BSA 1.9 m Physical [...] complication, without long-term current use of insulin ([facility]) Check blood sugars daily, notify if [...] Relevant Orders XR foot 3+ views left Associated Problem(s): Type 2 diabetes mellitus with other specified complication (HCC) Nephropathy, HLD Associated Problem(s): Type 2 diabetes mellitus without complication, without long-term current use of insulin (HCC) Check blood sugars daily, notify [...] and farxiga A1c: 7.4% 03/15/25 6.8% 11/29/24 Associated Problem(s): Obesity (BMI 30-39.9) Discussed with [...] point we cannot take away any pills Associated Problem(s): Essential hypertension Please check blood pressure daily and record DASH diet Limit caffeine Take medication as directed Contact office if chest pain, pressure, dizziness, shortness of breath, swelling legs Recommend slow position changes Current meds: lisinopril, amlodipine, and propranolol documented in this encounter [facility] 03-15-2025 Instructions Mela Daily NP - 03/15/2025 4:00 PM EDT Check xray May use indomethacin as needed for pain, take with food documented in this encounter [facility] 02-20-2025 History of Presen t illness Narrative Images from the original note were not included. Juno Kong MD Obstetrics and Gynecology Patient: Jordy Dunne, : 1960 (64 y.o.) DOS 02/20/25 Exam Date: 02/20/2025 HPI: Pt is re-establishing care at the insistance of her PCP. She has no issues, just needs screening exam and screening colonoscopy. She had a supracervical hyster many years ago( she cannot recall why a supracervical, and I can't locate my op note) Visit Vitals BP 130/82 Wt 175 lb BMI 30.04 kg/m OB Status Hysterectomy Smoking Status Former BSA 1.89 m OB History Para Term AB Living 2 2 2 0 0 2 SAB IAB Ectopic Multiple Live Births 0 0 0 0 2 # Outcome Date GA Lbr Garrison/2nd Weight Sex Type Anes PTL Lv 2 Term 1 Term Obstetric Comments Pap: Not up to date/no abnormal Mammo: 10/07/24-Neg ([facility]) Hysterectomy (still has cervix) Medication and Allergies Medication Documentation Review Audit Reviewed by Katarina Waldrop MA (Orthopedic Cast Specialist) on 02/20/25 at 1258 Medication Order Taking? Sig Documenting Provider Last Dose Status amLODIPine (Norvasc) 5 MG tablet [id number] Take 1 tablet (5 mg) by mouth Daily Melamarivel Daily NP Active aspirin 81 MG EC tablet [id number] Take 81 mg by mouth Daily Mela MAURISIO Daily Active atorvastatin (Lipitor) 40 MG tablet [id number] Take 1 tablet (40 mg) by mouth at bedtime Mela Daily NP Active dapagliflozin (Farxiga) 10 MG [id number] Take 1 tablet (10 mg) by mouth Daily Mela Abimbola [employer] Active glucose blood (True Metrix Blood Glucose Test) test strip [id number] Daily Use as instructed Mela Daily NP Active Lancets 30G misc [id number] 1 each Daily Mela Mengwilly, [employer] Active lisinopril 30 MG tablet [id number] Take 1 tablet (30 mg) by mouth Daily Mela Aicallisonholwilly, [employer] Active metFORMIN (Glucophage) 500 MG tablet [id number] Take 1 tablet (500 mg) by mouth in the morning and 1 tablet (500 mg) in the evening. Take with meals. Mela Aicallisonholz, [employer] Active propranolol LA (Inderal LA) 60 MG 24 hr capsule [id number] Take 1 capsule (60 mg) by mouth Daily Mela Aicallisonholz, [employer] Active Allergies Allergen Reactions Jardiance [Empagliflozin] Rash Past Medical History: Diagnosis Date Arthritis Carpal tunnel syndrome on both sides Colonic polyp 2012 Diabetes mellitus (CMS/HCC) Fibroids 2009 Hemorrhoids 2012 High cholesterol (CMS/HCC) Hypertension (CMS/HCC) Obesity (BMI 30-39.9) 08/25/2023 Past Surgical History: Procedure Laterality Date BACK SURGERY COLONOSCOPY W/ BIOPSIES 2012 Colonic polyps, Hemorrhoids DILATION AND CURETTAGE 2002 HYSTERECTOMY Procedure:supracx. hysterectomy;Disease:fibroids SHOULDER ARTHROSCOPY 06/27/2022 L shoulder scope- MTP SPINE SURGERY TRIGGER FINGER RELEASE TUBAL LIGATION VAGINAL DELIVERY x2 Physical Exam: Objective Physical Exam Constitutional: Appearance: Normal appearance. Genitourinary: Vulva normal. No lesions in the vagina. No vaginal discharge. Right Adnexa: not palpable. Left Adnexa: not palpable. No cervical lesion. Uterus is absent. Breasts: Right: Normal. Left: Normal. Pulmonary: Effort: Pulmonary effort is normal. Abdominal: Palpations: Abdomen is soft. Neurological: Mental Status: She is alert. Assessment/Plan ICD-10-CM 1. Well woman exam with routine gynecological exam Z01.419 2. Screening for HPV (human papillomavirus) Z11.51 IGP, APT HPV,RFX 16/18,45 3. Other screening mammogram Z12.31 Bilateral screening mammogram with tomosynthesis 4. Cervical cancer screening Z12.4 IGP, APT HPV,RFX 16/18,[address] Teran for screening colonscopy Orders Placed This Encounter Procedures Bilateral screening mammogram with tomosynthesis U/S and spot compression if indicated Standing Status: Future Expected Date: 10/08/2025 Expiration Date: 04/18/2026 Reason for exam:: screen IGP, APT HPV,RFX 16/18,45 Print requisition?: Yes documented in this encounter [facility] 01-04-2025 History of Presen t illness Narrative Associated Problem(s): Mixed hyperlipidemia (CMS/HCC) Trigs not at goal, we will increase her atorvastatin to 40mg recheck labs in 3 months Images from the original note were not included. Jordy Dunne is a 64 y.o. female presents with chief complaint of Follow-up (1m) HPI: Frustrated today d/t all the meds she is taking, is wondering about taking some away, in addition to her prescribed meds she also takes calcium/vit d, cinnamon, MVI as well as vit d Hypertension This is a chronic problem. The current episode started more than 1 year ago. The problem is unchanged. The problem is controlled. Pertinent negatives include no blurred vision, chest pain, headaches, orthopnea, palpitations, peripheral edema or shortness of breath. There are no associated agents to hypertension. Risk factors for coronary artery disease include diabetes mellitus, dyslipidemia and obesity. Past treatments include MONICA inhibitors and calcium channel blockers. The current treatment provides significant improvement. There are no compliance problems. There is no history of CAD/UT, heart failure or PVD. SUBJECTIVE: MEDICATIONS: Current Outpatient Medications Medication Instructions [...] and wheezing. Cardiovascular: Negative for chest pain, palpitations, orthopnea and leg swelling. Gastrointestinal: Negative for abdominal [...] on both sides Colonic polyp 2012 Diabetes ([facility]) Diabetes mellitus ([facility]) Fibroids 2009 Hemorrhoids 2012 High cholesterol ([facility]) Hypertension ([facility]) Obesity (BMI 30-39.9) 08/25/2023 Past Surgical History: Procedure Laterality Date COLONOSCOPY W/ BIOPSIES 2012 Colonic polyps, Hemorrhoids DILATION AND CURETTAGE 2002 HYSTERECTOMY Procedure:supracx. hysterectomy;Disease:fibroids SHOULDER ARTHROSCOPY 06/27/2022 L shoulder scope- MTP SPINE SURGERY TRIGGER FINGER RELEASE TUBAL LIGATION family history includes Coronary artery disease in her father; Stroke in her son. OBJECTIVE: Visit Vitals BP 134/86 Pulse 81 Temp 96.6 F Resp 20 Ht 5' 4 Wt 178 lb SpO2 98% BMI 30.55 kg/m Smoking Status Former BSA 1.91 m Physical Exam Vitals and nursing note [...] sounds: Normal breath sounds. No wheezing or rhonchi. Musculoskeletal: General: Normal range of motion. Cervical back: Normal range of motion and neck supple. Right lower leg: No edema. Left lower leg: No edema. Skin: General: Skin is warm and dry. [...] Follow up in about 3 months (around 04/05/2025). Problem List Items Addressed This Visit Essential hypertension (CMS/HCC) - Primary Please check blood pressure daily [...] not want to change at this time Relevant Medications amLODIPine (Norvasc) 5 MG tablet lisinopril 30 MG tablet Obesity (BMI 30-39.9) Discussed with patient their [...] cannot take away any pills Mixed hyperlipidemia (CMS/HCC) Trigs not at goal, we will increase her atorvastatin to 40mg recheck labs in 3 months Relevant Medications atorvastatin (Lipitor) 40 MG tablet Other Relevant Orders Lipid panel ALT AST Associated Problem(s): Cigarette nicotine dependence without complication (Resolved 01/04/2025) The patient has been advised of the risks of continued smoking: stroke, UT, all forms of cancer, lung disease, and . Options for quitting smoking include: cold turkey, hypnosis, acupuncture, nicotine replacement meds (gum, lozenges, and patches), Buproprion, and Varenicline. At this time pt is encouraged to evaluate their goals for wanting to quit smoking, and reach out to provider when ready to start this process Associated Problem(s): Essential hypertension (CMS/HCC) Please check blood pressure [...] not want to change at this time Associated Problem(s): Obesity (BMI 30-39.9) Discussed with [...] point we cannot take away any pills documented in this encounter [facility] 01-04-2025 Instructions Mela Daily NP - 01/04/2025 9:20 AM EDT Check with insurance about trulicity, ozempic, and mounjaro Increase atorvastatin to 40mg daily, stop your 20mg documented in this encounter [facility] 08-25-2024 History of Presen t illness Narrative [...] 110-130 mg/dl. An MONICA inhibitor/angiotensin II receptor kailey is being taken. She does not see a needleworker.Eye exam is current. SUBJECTIVE: MEDICATIONS: Current Outpatient [...] on both sides Colonic polyp 2012 Diabetes (CMS/HCC) Diabetes mellitus (CMS/HCC) Fibroids 2009 [...] without long-term current use of insulin (CMS/HCC) - Primary Check blood sugars daily, notify [...] of the risks of continued smoking: stroke, UT, all forms of cancer, lung disease, and [...] of the risks of continued smoking: stroke, UT, all forms of cancer, lung disease, and [...] complication, without long-term current use of insulin (CMS/[facility]) Check blood sugars daily, notify if [...] farxiga A1c 6.1% Associated Problem(s): Essential hypertension (CMS/HCC) Please check blood pressure daily and record DASH diet Limit caffeine Take medication as directed Contact office if chest pain, pressure, dizziness, shortness of breath, swelling legs Recommend slow position changes Current meds: lisinopril and propranolol, did not take yet this morning documented in this encounter [facility] 08-25-2024 Instructions Mela Daily NP - 08/25/2024 9:00 AM EST A1c 6.1% great job, After 09/21/24: mammogram in September I will fax order to [facility] November appt we will talk about PAP smear and Colon cancer screening Also order of fasting labs documented in this encounter [facility] 05-26-2024 History of Presen t illness Narrative Associated Problem(s): Tobacco dependence The patient has been advised of the risks of continued smoking: stroke, UT, all forms of cancer, lung disease, and [...] farxiga at 5mg daily #3 samples: Lot [id number], exp 01/18/26 Non specific rash from Jardiance, unsure if this is unique to this, or class related. Will trial Farxiga, if rash returns stop immediately. If tolerating ok, then can brain picker script Associated Problem(s): Essential hypertension (CMS/HCC) [...] (CMS/HCC) Diabetes mellitus (CMS/HCC) Fibroids 2009 Hemorrhoids 2012 High cholesterol (CMS/HCC) Hypertension (CMS/HCC) Obesity (BMI [...] complication, without long-term current use of insulin (CMS/[facility]) Metformin at 500mg BID A1c is at 6.5% However sugar ranges in the 160-180's Will trial a sample of farxiga at 5mg daily #3 samples: Lot [id number], exp 01/18/26 Non specific rash from Jardiance, unsure if this is unique to this, or class related. Will trial Farxiga, if rash returns stop immediately. If tolerating ok, then can brain picker script Relevant Medications metFORMIN (Glucophage) 500 MG tablet dapagliflozin (Farxiga) 5 MG Essential hypertension (CMS/HCC) - Primary Will continue dose of lisinopril at 30mg daily Fu on blood pressure in 3 months Continue with steady weight loss Overweight (BMI 25.0-29.9) Tobacco dependence The patient has been advised of the risks of continued smoking: stroke, UT, all forms of cancer, lung disease, and . Options for quitting smoking include: cold turkey, hypnosis, acupuncture, nicotine replacement meds (gum, lozenges, and patches), Buproprion, and Varenicline. At this time pt is encouraged to evaluate their goals for wanting to quit smoking, and reach out to provider when ready to start this process documented in this encounter [facility] Healthcare Evaluation + Plan note No data available for this section [facility] Evaluation note Diagnosis Mixed hyperlipidemia (CMS/HCC)- Primary Mixed hyperlipidemia documented in this encounter [facility] HealthcareEvaluation note* Diagnosis Type 2 diabetes mellitus [...] Unspecified essential hypertension documented in this encounter [facility] HealthcareEvaluation note* Diagnosis Type 2 diabetes mellitus [...] (CMS/HCC) Mixed hyperlipidemia documented in this encounter [facility] HealthcareEvaluation note* Diagnosis Type 2 diabetes mellitus [...] Obesity (BMI 30-39.9) documented in this encounter [facility]* Diagnosis Essential hypertension (CMS/HCC) Unspecified essential hypertension documented in this encounter [facility]* Diagnosis Essential hypertension (CMS/HCC)- Primary Unspecified essential hypertension Type 2 diabetes mellitus without complication, without long-term current use of insulin (CMS/HCC) Overweight (BMI 25.0-29.9) Overweight Tobacco dependence Tobacco use disorder documented in this encounter [facility]* Diagnosis Type 2 diabetes mellitus without complication, without long-term current use of insulin- Primary Essential hypertension (CMS/HCC) Unspecified essential hypertension Obesity (BMI 30-39.9) Breast cancer screening by mammogram Type 2 diabetes mellitus without complication, without long-term current use of insulin- Primary Essential hypertension (CMS/HCC) Unspecified essential hypertension Microalbuminuria Proteinuria Obesity (BMI 30-39.9) Mixed hyperlipidemia (CMS/HCC) Mixed hyperlipidemia Obesity (BMI 30-39.9)- Primary Mixed hyperlipidemia (CMS/HCC) Mixed hyperlipidemia Type 2 diabetes mellitus without complication, without long-term current use of insulin Essential hypertension (CMS/HCC) Unspecified essential hypertension Type 2 diabetes mellitus without complication, without long-term current use of insulin- Primary Essential hypertension (CMS/HCC) Unspecified essential hypertension Obesity (BMI 30-39.9) Mixed hyperlipidemia (CMS/HCC) Mixed hyperlipidemia Essential hypertension (CMS/HCC)- Primary Unspecified essential hypertension Type 2 diabetes mellitus without complication, without long-term current use of insulin Obesity (BMI 30-39.9) Colon cancer screening Special screening for malignant neoplasms, colon Essential hypertension (CMS/HCC)- Primary Unspecified essential hypertension Type 2 diabetes mellitus without complication, without long-term current use of insulin Overweight (BMI 25.0-29.9) Overweight Tobacco dependence Tobacco use disorder Type 2 diabetes mellitus without complication, without long-term current use of insulin- Primary Essential hypertension (CMS/HCC) Unspecified essential hypertension Tobacco dependence Tobacco use disorder Colon cancer screening Special screening for malignant neoplasms, colon Encounter for screening mammogram for malignant neoplasm of breast Mixed hyperlipidemia (CMS/HCC) Mixed hyperlipidemia Obesity (BMI 30-39.9) Type 2 diabetes mellitus without complication, without long-term current use of insulin- Primary Essential hypertension (CMS/HCC) Unspecified essential hypertension Obesity (BMI 30-39.9) Mixed hyperlipidemia (CMS/HCC) Mixed hyperlipidemia Cigarette nicotine dependence without complication Colon cancer screening Special screening for malignant neoplasms, colon Essential hypertension (CMS/HCC)- Primary Unspecified essential hypertension Obesity (BMI 30-39.9) Mixed hyperlipidemia (CMS/HCC) Mixed hyperlipidemia documented in this encounter [facility] HealthcareEvaluation note* Diagnosis Type 2 diabetes mellitus without complication, without long-term current use of insulin- Primary Essential hypertension (CMS/HCC) Unspecified essential hypertension Obesity (BMI 30-39.9) Breast cancer screening by mammogram Type 2 diabetes mellitus without complication, without long-term current use of insulin- Primary Essential hypertension (CMS/HCC) Unspecified essential hypertension Microalbuminuria Proteinuria Obesity (BMI 30-39.9) Mixed hyperlipidemia (CMS/HCC) Mixed hyperlipidemia Obesity (BMI 30-39.9)- Primary Mixed hyperlipidemia (CMS/HCC) Mixed hyperlipidemia Type 2 diabetes mellitus without complication, without long-term current use of insulin Essential hypertension (CMS/HCC) Unspecified essential hypertension Type 2 diabetes mellitus without complication, without long-term current use of insulin- Primary Essential hypertension (CMS/HCC) Unspecified essential hypertension Obesity (BMI 30-39.9) Mixed hyperlipidemia (CMS/HCC) Mixed hyperlipidemia Essential hypertension (CMS/HCC)- Primary Unspecified essential hypertension Type 2 diabetes mellitus without complication, without long-term current use of insulin Obesity (BMI 30-39.9) Colon cancer screening Special screening for malignant neoplasms, colon Essential hypertension (CMS/HCC)- Primary Unspecified essential hypertension Type 2 diabetes mellitus without complication, without long-term current use of insulin Overweight (BMI 25.0-29.9) Overweight Tobacco dependence Tobacco use disorder Type 2 diabetes mellitus without complication, without long-term current use of insulin- Primary Essential hypertension (CMS/HCC) Unspecified essential hypertension Tobacco dependence Tobacco use disorder Colon cancer screening Special screening for malignant neoplasms, colon Encounter for screening mammogram for malignant neoplasm of breast Mixed hyperlipidemia (CMS/HCC) Mixed hyperlipidemia Obesity (BMI 30-39.9) Type 2 diabetes mellitus without complication, without long-term current use of insulin- Primary Essential hypertension (CMS/HCC) Unspecified essential hypertension Obesity (BMI 30-39.9) Mixed hyperlipidemia (CMS/HCC) Mixed hyperlipidemia Cigarette nicotine dependence without complication Colon cancer screening Special screening for malignant neoplasms, colon Essential hypertension (CMS/HCC)- Primary Unspecified essential hypertension Obesity (BMI 30-39.9) Mixed hyperlipidemia (CMS/HCC) Mixed hyperlipidemia Well woman exam with routine gynecological exam- Primary Routine gynecological examination Screening for HPV (human papillomavirus) Special screening examination for human papillomavirus (HPV) Other screening mammogram Cervical cancer screening Screening for malignant neoplasm of the cervix documented in this encounter [facility] HealthcareEvaluation note* Diagnosis Type 2 diabetes mellitus without complication, without long-term current use of insulin (HCC)- Primary Essential hypertension Unspecified essential hypertension Obesity (BMI 30-39.9) Breast cancer screening by mammogram Type 2 diabetes mellitus without complication, without long-term current use of insulin (HCC)- Primary Essential hypertension Unspecified essential hypertension Microalbuminuria Proteinuria Obesity (BMI 30-39.9) Mixed hyperlipidemia Mixed hyperlipidemia Obesity (BMI 30-39.9)- Primary Mixed hyperlipidemia Mixed hyperlipidemia Type 2 diabetes mellitus without complication, without long-term current use of insulin (HCC) Essential hypertension Unspecified essential hypertension Type 2 diabetes mellitus without complication, without long-term current use of insulin (HCC)- Primary Essential hypertension Unspecified essential hypertension Obesity (BMI 30-39.9) Mixed hyperlipidemia Mixed hyperlipidemia Essential hypertension- Primary Unspecified essential hypertension Type 2 diabetes mellitus without complication, without long-term current use of insulin (HCC) Obesity (BMI 30-39.9) Colon cancer screening Special screening for malignant neoplasms, colon Essential hypertension- Primary Unspecified essential hypertension Type 2 diabetes mellitus without complication, without long-term current use of insulin (HCC) Overweight (BMI 25.0-29.9) Overweight Tobacco dependence Tobacco use disorder Type 2 diabetes mellitus without complication, without long-term current use of insulin (HCC)- Primary Essential hypertension Unspecified essential hypertension Tobacco dependence Tobacco use disorder Colon cancer screening Special screening for malignant neoplasms, colon Encounter for screening mammogram for malignant neoplasm of breast Mixed hyperlipidemia Mixed hyperlipidemia Obesity (BMI 30-39.9) Type 2 diabetes mellitus without complication, without long-term current use of insulin (HCC)- Primary Essential hypertension Unspecified essential hypertension Obesity (BMI 30-39.9) Mixed hyperlipidemia Mixed hyperlipidemia Cigarette nicotine dependence without complication Colon cancer screening Special screening for malignant neoplasms, colon Essential hypertension- Primary Unspecified essential hypertension Obesity (BMI 30-39.9) Mixed hyperlipidemia Mixed hyperlipidemia Left foot pain- Primary Pain in soft tissues of limb Essential hypertension Unspecified essential hypertension Obesity (BMI 30-39.9) Type 2 diabetes mellitus without complication, without long-term current use of insulin (HCC) Type 2 diabetes mellitus with diabetic nephropathy (HCC) Type 2 diabetes mellitus with other specified complication (HCC) Mixed hyperlipidemia Mixed hyperlipidemia [facility] No data available for this section [facility] No data available for this section [facility] Discharge Instructions * Instructions* Fernandez Rios MD - 09/11/2020 medication given may [...] your physician 11) Call your doctor at [phone] for an appointment (or follow up as [...] call OFFICE. The 24- hour phone is [phone]) If you are unable to contact [...] Agents on File Name Relationship [facility] Manuel Dunne Spouse Primary [...] Right leg weakness Weakness of right leg Fernandez Rios MD [address], [address] [place] [address] [facility] [employer] Reason Comments Med Refill Reason Onset Date Comments Med Refill 08/02/2024 Reason Comments Hypertension Reason Comments Follow-up 1m Reason Comments Diabetes Ordered Prescriptions (unrec ognized section and content) [...] section and content) DATE CREATED AUTHOR [facility]2020 [facility] DATE CREATED AUTHOR AUTHOR'S ORGANIZ ATION 10/21/2021 [facility] DATE CREATED AUTHOR AUTHOR'S ORGANIZ ATION 06/02/2022 [facility] DATE CREATED AUTHOR AUTHOR'S ORGANIZ ATION 09/12/2022 [facility] DATE CREATED AUTHOR AUTHOR'S ORGANIZ ATION 02/21/2025 [facility]ists [facility] Care Team (unrecognized sect ion and content) Advertisement Compositor Relationship Specialty Start Date End Date Jose Powers MD PCP - General Family Medicine 08/18/23 Mela Daily, [employer] [address] [place] [id number] Nurse Practitioner Family Medicine 08/18/23 Advertisement Compositor Relationship Specialty Start Date End Date Jose Powers MD [address] [place] [phone] PCP - General Family Medicine 08/18/23 Mela Daily NP [address] [place] [phone] PCP - [place] [employer] 12/21/23 Mela Daily NP [address] [place] [phone] Nurse Practitioner Family Medicine 08/18/23 Advertisement Compositor Relationship Specialty Start Date End Date Jose Powers MD [address] [place] [phone] PCP - General Family Medicine 08/18/23 Mela Daily NP [address] [place] [phone] PCP - [place] [facility] 12/21/23 Mela Daily NP [address] [place] [phone] Nurse Practitioner Family Medicine 08/18/23 Advertisement Compositor Relationship Specialty Start Date End Date Jose Powers MD [address] [place] [phone] PCP - General Family Medicine 08/18/23 Mela Daily NP [address] [place] [phone] PCP - [place] [facility] 12/21/23 Meal Daily NP [address] [place] [phone] Nurse Practitioner Family Medicine 08/18/23 Advertisement Compositor Relationship Specialty Start Date End Date Jose Powers MD [address] [place] [address] PCP - General Family Medicine 08/18/23 Mela Daily NP [address] [place] [address] PCP - [place] [employer] 12/21/23 Mela Daily NP [address] [place] [address] Nurse Practitioner Family Medicine 08/18/23 Advertisement Compositor Relationship Specialty Start Date End Date Jose Powers MD [address] [place] [address] PCP - General Family Medicine 08/18/23 Mela Daily NP [address] [place] [id number] PCP - [place] [employer] 12/21/23 Mela Daily NP [address] [place] [address] Nurse Practitioner Family Medicine 08/18/23 Advertisement Compositor Relationship Specialty Start Date End Date Jose Powers MD [address] [place] [address] PCP - General Family Medicine 08/18/23 Mela Daily NP [address] [place] [address] PCP - [place] [employer] 12/21/23 Mela Daily NP [address] [place] [address] Nurse Practitioner Family Medicine 08/18/23 Advertisement Compositor Relationship Specialty Start Date End Date Jose Powers MD [address] [place] [address] PCP - General Family Medicine 08/18/23 Mela Daily NP [address] [place] [address] PCP - [place] [employer] 12/21/23 Mela Daily NP [address] [place] [address] Nurse Practitioner Family Medicine 08/18/23 Advertisement Compositor Relationship Specialty Start Date End Date Jose Powers MD [address] [place] [address] PCP - General Family Medicine 08/18/23 Mela Daily NP [address] [place] [address] PCP - [place] [employer] 12/21/23 Mela Daily NP [address] [place] [address] Nurse Practitioner Family Medicine 08/18/23 Advertisement Compositor Relationship Specialty Start Date End Date Jose Powers MD [address] [place] [address] PCP - General Family Medicine 08/18/23 Mela Daily NP [address] [place] [address] PCP - [place] [employer] 12/21/23 Mela Daily NP [address] [place] [address] Nurse Practitioner Family Medicine 08/18/23 Advertisement Compositor Relationship Specialty Start Date End Date Jose Powers MD [address] [place] [address] PCP - General Family Medicine 08/18/23 Mela Daily NP [address] [place] [address] PCP - [place] [employer] 12/21/23 Mela Daily NP [address] [place] [address] Nurse Practitioner Family Medicine 08/18/23 Advertisement Compositor Relationship Specialty Start Date End Date Jose Powers MD [address] [place] [id number] PCP - General Family Medicine 08/18/23 Mela Daily NP [address] [place] [address] PCP - [place] [employer] 12/21/23 Mela Daily NP [address] [place] [address] Nurse Practitioner Family Medicine 08/18/23 Advertisement Compositor Relationship Specialty Start Date End Date Jose Powers MD [address] [place] [address] PCP - General Family Medicine 08/18/23 Mela Daily NP [address] [place] [address] PCP - [place] [employer] 12/21/23 Mela Daily NP [address] [place] [address] Nurse Practitioner Family Medicine 08/18/23 Advertisement Compositor Relationship Specialty Start Date End Date Jose Powers MD [address] [place] [address] PCP - General Family Medicine 08/18/23 Mela Daily NP [address] [place] [address] PCP - [place] [employer] 12/21/23 Mela Daily NP [address] [place] [address] Nurse Practitioner Family Medicine 08/18/23 FOR RECORDS [...] BE BASED ON THE PRIMARY CLINICAL RECORDS. [employer] [facility]. provides no warranty or guarantee of the accuracy or completeness of information in this document.
== END 2025-03-16 09:00 | disposition home or self-care (01) ==
LOC: RAD 09:04
PROVIDERS: PCP Nurse Practitioner; Visit Provider Nurse Practitioner
DX: M79.672 Pain in left foot (principal)
CPT/HCPCS: 73630

== ENCOUNTER 2025-08-21 11:37 | Outpatient (OUT) | payer BC, SELFPAY ==
--- OUTSIDE RECORDS SUMMARY | 2025-08-21 11:43 | XMS_ITS | Clinical Summary ---
Author Organization [facility] Address [address] [facility] [place] [address] Care Team Providers Care Electronics Department Manager Name Role Phone Jose Powers MD Primary Care Provider [phone] AicMela francois FABRICATION OPERATOR Unavailable [phone] AichholMela aguilera FABRICATION OPERATOR Unavailable [phone] Allergies Active AllergyReactionsCriticalityNoted DateCommentsEmpagliflozinRashLow 04/25/2024 Medications MedicationSigDispense QuantityRefillsLast FilledStart DateEnd DateStatus aspirin 81 MG EC tablet Take 81 mg by mouth DailyActive glucose blood (True Metrix Blood Glucose Test) test strip Indications:Type 2 diabetes mellitus without complication, without long-term current use of insulin ([facility])Daily Use as instructed 100 each 6Active amLODIPine (Norvasc) 5 MG tablet Indications:Essential hypertensionTake 1 tablet (5 mg) by mouth Daily 90 tablet 5Active atorvastatin (Lipitor) 40 MG tablet Indications:Mixed hyperlipidemiaTake 1 tablet (40 mg) by mouth at bedtime 90 tablet 5Active dapagliflozin (Farxiga) 10 MG Indications:Type 2 diabetes mellitus without complication, without long-term current use of insulin (HCC)Take 1 tablet (10 mg) by mouth Daily 90 tablet 5Active lisinopril 30 MG tablet Indications:Essential hypertensionTake 1 tablet (30 mg) by mouth Daily 90 tablet 5Active metFORMIN (Glucophage) 500 MG tablet Indications:Type 2 diabetes mellitus without complication, without long-term current use of insulin ([facility])Take 1 tablet (500 mg) by mouth in the morning and 1 tablet (500 mg) in the evening. Take with meals. 180 tablet 5Active propranolol LA (Inderal LA) 60 MG 24 hr capsule Indications:Essential hypertensionTake 1 capsule (60 mg) by mouth Daily 90 capsule 5Active Active Problems ProblemNoted DateDiagnosed DateFamily history of colon pnyqyi9205/09/2025 Adenomatous polyp of transverse colon05/01/2025 Overview (05/01/2025): Colonoscopy 04/27/25 inflammed tubular adenoma Environmental and seasonal jfybqwzhg83/21/2025 Assessment & Plan (04/10/2025 9:44 AM EDT): Suspect occ green sputum is post nasal May use OTC allergy meds Fu if worsening Personal history of other colon zacmqy5504/04/2025Type 2 diabetes mellitus with diabetic /25/2025Type 2 diabetes mellitus with other specified fomykziqqymu92/25/2025 Assessment & Plan (03/15/2025 7:24 AM EDT): Nephropathy, HLD Left foot pain03/15/2025 Assessment & Plan (04/10/2025 9:43 AM EDT): Neg xray 03/18/25 resolved Assessment & Plan (03/15/2025 4:35 PM EDT): Check xray Indomethacin prn Discussed DD: gout, DN, stress fracture Keep fu appt Former xcxfbh7201/04/2025olon cancer iypieyida35/11/2025 Assessment & Plan (11/29/2024 6:22 AM EDT): Was referred to dr bagley and saw him in office 11/30/23, never scheduled colonoscopy Mixed fjdyokiqmkpxvm99/08/2024 Assessment & Plan (01/04/2025 10:51 AM EDT): [...] PM EDT): Great response with statin therapy Waxoocaaeqdjkwwj74/08/2024 Assessment & Plan (10/05/2023 10:07 AM EST): Started lisinopril Lumbar disc qyxqofudxa47/05/2023Lumbar cfvttetqhps82/05/2023Osteoarthritis of left acromioclavicular joint08/25/2023Other articular cartilage disorders, left ztjvlowd80/05/2023artial thickness rotator cuff tear08/25/2023Type 2 diabetes mellitus without complication, without long-term current use of insulin 08/25/2023 Assessment & Plan (04/10/2025 6:35 AM EDT): Check blood sugars daily, notify [...] 7.4% 03/15/25 6.8% 11/29/24 Assessment & Plan (03/15/2025 4:17 PM EDT): [...] farxiga at 5mg daily #3 samples: Lot [id number], exp 01/18/26 Non specific rash from Jardiance, unsure if this is unique to this, or class related. Will trial Farxiga, if rash returns stop immediately. 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/receiving associate script Assessment & Plan (04/25/2024 9:47 AM [...] Add Jardiance 10mg daily, #4 samples Lot [id number], exp 09/2025 Assessment & Plan (01/07/2024 11:47 AM EDT): Increase metformin to 1000mg BID over the next 2 weeks Fu in 2 weeks Will check w insurance for GLP 1 Assessment & Plan (10/05/2023 10:07 AM EST): Refer to peer educator Check blood sugars daily, notify if <70 [...] Check labs Weight loss, increase activity Essential lvnoxgbtaqeo18/05/2023 Assessment & Plan (04/10/2025 6:34 AM EDT): Please check blood pressure daily and record DASH diet Limit caffeine Take medication as directed Contact office if chest pain, pressure, dizziness, shortness of breath, swelling legs Recommend slow position changes Current meds: lisinopril, amlodipine, and propranolol Assessment & Plan (03/15/2025 7:20 AM EDT): [...] I did discuss with pt that while wecould take this away, not sure if PAZ's [...] goal, no changes, consider MONICA Obesity (BMI 30-39.9)08/25/2023 Assessment & Plan (03/15/2025 7:20 AM EDT): [...] (10/05/2023 10:08 AM EST): Will refer to peer educator, goal weight loss at this time is [...] sodas, juices, and sugary drinks. Resolved Problems ProblemNoted DateDiagnosed DateResolved DateType 2 diabetes mellitus without qzqbqvnwtukga87igarette nicotine dependence without nlwichcxuahw01 Assessment & Plan (01/04/2025 6:18 AM EDT): The patient has been advised of the risks of continued smoking: stroke, OK, all forms of cancer, lung disease, and . Options for quitting smoking include: cold turkey, hypnosis, acupuncture, nicotine replacement meds(gum, lozenges, and patches), Buproprion, and Varenicline. At this time pt is encouraged to evaluate their goals for wanting to quit smoking, and reach out toprovider when ready to start this process Assessment & Plan (11/29/2024 6:19 AM EDT): The patient has been advised of the risks of continued smoking: stroke, OK, all forms of cancer, lung disease, and . Options for quitting smoking include: cold turkey, hypnosis, acupuncture, nicotine replacement meds(gum, lozenges, and patches), Buproprion, and Varenicline. At this time pt is encouraged to evaluate their goals for wanting to quit smoking, and reach out toprovider when ready to start this process Encounter for screening mammogram for malignant neoplasm of maxvpt2108/25/2024 11/29/2024 Assessment & Plan (08/25/2024 6:35 AM EST): Due 09/2024 Will order Overweight (BMI 25.0-29.9) Assessment & Plan (08/25/2024 6:34 AM EST): Discussed with patient their BMI (actual, verses recommended). We have also discussed lifestyle modifications: attempts to perform physical activity as chronic conditions allow, also to monitor dietary intake: increasing protein/fruits/veggies and lowering carb intake (unless contraindicated). Limit sodas, juices, and sugary drinks. . Tobacco zbhrbejiai10/05/202403/07/2025 Assessment & Plan (08/25/2024 9:39 AM EST): 1 ppd The patient has been advised of the risks of continued smoking: stroke, OK, all forms of cancer, lung disease, and . Options for quitting smoking include: cold turkey, hypnosis, acupuncture, nicotine replacement meds(gum, lozenges, and patches), Buproprion, and Varenicline. At this time pt is encouraged to evaluate their goals for wanting to quit smoking, and reach out toprovider when ready to start this process Assessment & Plan (05/26/2024 9:36 AM EDT): The patient has been advised of the risks of continued smoking: stroke, OK, all forms of cancer, lung disease, and . Options for quitting smoking include: cold turkey, hypnosis, acupuncture, nicotine replacement meds(gum, lozenges, and patches), Buproprion, and Varenicline. At this time pt is encouraged to evaluate their goals for wanting to quit smoking, and reach out toprovider when ready to start this process Colon cancer yklehetea43/07/2025 Assessment & Plan (08/25/2024 6:39 AM EST): Was referred to dr bagley, to date no scope completed Encourage pt to get this scheduled Assessment & Plan (04/25/2024 9:41 AM EDT): Has been referred to kevyn Immunizations ImmunizationAdministration DatesNext DueInfluenza, Injectable, MDCK, preservative free07/08/2024Influenza, injectable, MDCK, preservative free, mlguwprkbdso86/11/2018Influenza, injectable, quadrivalent, preservative free 09/19/2023,09/04/2021,06/28/2020Pneumococcal Polysaccharide EUJE2511/ Family History Medical HistoryRelationNameCommentsCoronary artery diseaseFatherStrokeSon RelationNameStatusCommentsDaughterAliveFatherDeceasedMotherDeceasedOtherSpouse AliveSonAlive Social History Tobacco UseTypesPacks/DayYears UsedDateSmoking Tobacco: FormerCigarettesQuit: 2022Smokeless Tobacco: Never Tobacco Cessation:Counseling Given: Not Answered Comments:10-19 cigarettes/day Alcohol UseStandard Drinks/WeekCommentsYes2 (1 standard drink = 0.6 oz pure alcohol)1-2 drinks monthly or less, caffeine 1-2 cups per dayHumiliation, Afraid, Rape, and Kick questionnaireAnswerDate RecordedWithin the last year, have you been afraid of your partner or ex-partner?No08/25/2023Within the last year, have you been humiliated or emotionally abused in other ways by your partner or ex-partner?No08/25/2023Within the last year, have you been kicked, hit, slapped, or otherwise physically hurt by your partner or ex-partner?No 08/25/2023Within the last year, have you been raped or forced to have any kind of sexual activity by your partner or ex-partner?No08/25/2023Social Connection and Isolation PanelAnswerDate RecordedIn a typical week, how many times do you talk on the phone with family, friends, or neighbors?More than three times a week08/25/2023How often do you get together with friends or relatives?Three times a week08/25/2023How often do you attend cheondoism or mormon services?More than 4 times per year08/25/2023o you belong to any clubs or organizations such as cheondoism groups, unions, fraternal or athletic groups, or school groups?Yes 08/25/2023How often do you attend meetings of the clubs or organizations you belong to?More than 4 times per year08/25/2023re you , , , , never , or living with a partner?Jikqtzl7708/25/2023 AUDIT-CAnswerDate RecordedQ1: How often do you have a drink containing alcohol? Monthly or less08/25/2023Q2: How many drinks containing alcohol do you have on a typical day when you are drinking?1 or Q3: How often do you have six or more drinks on one occasion?Less than ctlfdvz3008/25/2023Overall Financial Resource Strain (CARDIA)AnswerDate RecordedHow hard is it for you to pay for the very basics like food, housing, medical care, and heating?Not hard at all 08/25/2023[facility] [place] of Occupational Health - Occupational Stress QuestionnaireAnswerDate RecordedDo you feel stress - tense, restless, nervous, or anxious, or unable to sleep at night because yourmind is troubled all the time - these days?Not at all08/25/2023Exercise Vital SignAnswerDate RecordedOn average, how many days per week do you engage in moderate to strenuous exercise (like a brisk walk)?3 days08/25/2023On average, how many minutes do you engage in exercise at this level?40 min08/25/2023Hunger Vital SignAnswerDate Recorded Within the past 12 months, you worried that your food would run out before you got the money to buymore.Never true08/25/2023Within the past 12 months, the food you bought just didn't last and you didn't have money to get more.Never true 08/25/2023RAPARE - TransportationAnswerDate RecordedIn the past 12 months, has lack of transportation kept you from medical appointments or from getting medications?No08/25/2023In the past 12 months, has lack of transportation kept you from meetings, work, or from getting things needed for daily living?No 08/25/2023Housing Stability Vital SignAnswerDate RecordedIn the last 12 months, was there a time when you were not able to pay the mortgage or rent on time?No 08/25/2023Number of Places Lived in the Last YearNot on file08/25/2023In the last 12 months, was there a time when you did not have a steady place to sleep or slept in [place] (including now)?No08/25/2023CommentsNoSex and Gender InformationValueDate RecordedSex Assigned at BirthNot on fileLegal Sex Xcgffa4212/03/2022 6:56 PM EDTGender IdentityNot on fileSexual OrientationNot on file Last Filed Vital Signs Vital SignReadingTime TakenCommentsBlood Hdaltkgd864/8207 9:18 AM EDT Tldru468004/10/2025 9:18 AM NWSBrfxvqmaoek13.9 ??C (98.5 ??F)03/15/2025 4:02 PM EDTRespiratory Kvqd537104/10/2025 9:18 AM EDTOxygen Mvnusedehl27%04/10/2025 9:18 AM EDTInhaled Oxygen Concentration--Gajdgg71.7 kg (178 lb)05/09/2025 9:04 AM EDT Shqixa730.6 cm (5' 4 )05/09/2025 9:04 AM EDTBody Mass Index30.5508 9:04 AM EDT Plan of Treatment DateTypeDepartmentCare Team (Latest Contact Info)Aqbzlexxgat25/10/2026 8:35 AM EDTOffice Visit [facility] [address] [place] [id number] Zaida Saldivar MD [address] [place] [address] Health MaintenanceDue DateLast DoneCommentsCT Uesrkntygzgf1960FIT-DNA 1960FIT1960FOBT1960 8752Tmuabvnqcmcho1961neumococcal Vaccine: Pediatrics (0 to 5 Years) and At-Risk Patients (6 to 64 Years) (2 of 2 - PCV)/OVID-19 Vaccine ( - 2024- season)2025 07/08/2024, 09/19/2023, 01/15/2022, Additional history existsInfluenza Vaccine (#1), 09/19/2023, 09/04/2021, Additional history exists Diabetes: Hemoglobin A1C/, 11/29/2024, 11/29/2024, Additional history bszagvEgtbcnkel60/17/202601/, 4Diabetes: Urine Protein Ggisrfapa47/24/255341/, 4Diabetes: Retinopathy Screening /8995Vyeyailyouw94, 04/27/2025, 04/27/2025, Additional history existsColorectal Cancer Sfemicupb36/07/2030Cervical Cancer ScreeningDiscontinuedHPV/HfqatrXckqpaghwbqt88/02/2025Pap SmearDiscontinued Procedures Procedure NamePriorityDate/TimeAssociated DiagnosisCommentsCOLONOSCOPYRoutine 04/27/2025 1:30 PM EDTPOCT GLYCOSYLATED HEMOGLOBIN (HGB A1C)Aforeco2603/15/2025 4:17 PM EDT Type 2 diabetes mellitus without complication, without long-term current use of insulin (HCC) IGP, APT HPV,RFX 16/18,91Jcxxozi95/02/2025 1:13 PM EDT Screening for HPV (human papillomavirus) Cervical cancer screening MM TOMOSYNTHESIS SCREENING BI10/07/2024 11:46 AM EST from Last 3 Months or Most Recently Relevant to Health Maintenance Results * Colonoscopy (04/27/2025 1:30 PM EDT)Anatomical RegionLateralityModality Endoscopy Narrative Authorizing ProviderResult TypeResult StatusPaul C Laffay DOENDOSCOPY PROCEDURE ORDERABLESFinal Result * (ABNORMAL) POCT glycosylated hemoglobin (Hb A1C) docked device (03/15/2025 4:17 PM EDT)ComponentValueRef RangeTest MethodAnalysis TimePerformed At Pathologist SignatureHemoglobin A1C7.4Specimen (Source)Anatomical Location / LateralityCollection Method / VolumeCollection TimeReceived TimeBloodVenous blood specimen / Wcxdqjl2803/15/2025 4:17 PM EDT Narrative Authorizing ProviderResult TypeResult StatusLisa [facility] NPPOINT OF CARE TEST ENTER/EDIT ORDERABLESFinal Result * IGP, APT HPV,RFX 16/18,45 (02/20/2025 1:13 PM EDT)ComponentValueRef RangeTest MethodAnalysis TimePerformed AtPathologist SignatureDiagnosis:CommentLABC[facility]P Comment: NEGATIVE FOR INTRAEPITHELIAL LESION OR MALIGNANCY. CELLULAR CHANGES ASSOCIATED WITH ATROPHY ARE PRESENT. Specimen Adequacy:CommentLABCORPComment: Satisfactory for evaluation. ??Endocervical component may not be distinguished in cases of atrophy. Clinician Provided ICD10:CommentLABCORPComment: Z11.51 Z12.4 Performed By:CommentLABCORPComment:Frank Mahoney Hemming And Tacking Machine Operator ([facility])Cyto Comments.LABCORPNote:CommentLABCORPComment: The Pap smear is a screening test designed to aid in the detection of premalignant and malignant conditions of the uterine cervix. ??It is not a diagnostic procedure and should not be used as the sole means of detecting cervical cancer. ??Both false-positive and false-negative reports do occur. Test Methodology:CommentLABCORPComment: This liquid based ThinPrep(R) pap test was screened with the use of an image guided system. HPV AptimaNegativeNegativeLABCORPComment: This nucleic acid amplification test detects fourteen high-risk HPV types (16,18,31,33,35,39,45,51,52,56,58,59,66,68) without differentiation. Specimen (Source)Anatomical Location / LateralityCollection Method / Volume Collection TimeReceived TimeVaginal Fluid02/20/2025 1:13 PM EDT02/21/2025 Narrative [facility] - 02/23/2025 1:07 PM EDT Performed at: 01 - [facility] [address] [facility], [place], [place] ??[id number] Client Experience Specialist: Margarito Louise MD, Phone: ??[phone] Performed at: ??02 - [facility] [address], [place] ??[id number] Client Experience Specialist: Preethi Small MD, Phone: ??[phone] Performed at: ??03 - [facility] [address], [place] ??[id number] Client Experience Specialist: Preethi Small MD, Phone: ??[phone] Specimen Comment: No. of containers..01 ThinPrep Vial Authorizing ProviderResult TypeResult StatusJuno Kong MDLAB BLOOD ORDERABLESFinal ResultPerforming OrganizationAddressCity/State/ZIP CodePhone Number [facility] * MM TOMOSYNTHESIS SCREENING BI (10/07/2024 11:46 AM EST)Anatomical Region LateralityModalityOtherSpecimen (Source)Anatomical Location / Laterality Collection Method / VolumeCollection TimeReceived Time10/07/2024 11:46 AM EST Narrative 10/07/2024 11:47 AM EST [facility] ?[address] ? [place] [address] ? Mammography Report ? Signed ? Patient: DUNNE,JORDY Wallace ?MR#: [id number] ?? : 1960 ?Acct:[id number] ?? Age/Sex: 64 / F ?ADM Date: //25 ?? Loc: MAMMO ? Attending Dr: Mela J Markhleilani FABRICATION OPERATOR ? Ordering Physician: Abimbola,Mela FABRICATION OPERATOR ?Results: ? Date of Service: 10/07/24 ?Follow Up: ? Procedure(s): MM tomosynthesis screening BI ?? Accession Number(s): [id number] ? cc: Mela Daily FABRICATION OPERATOR ? Patient Name: ? JORDY DUNNE ? MR#: [id number] ? : 1960 ? Exam Date: 10/07/2024 ?? Ordering Doctor: MAMADOU Daily CNP ? RADIOLOGY REPORT ? PROCEDURE: ? MM TOMOSYNTHESIS SCREENING BI ? COMPARISON: ? MM TOMOSYNTHESIS SCREENING BI, 09/30/2023. ??MG MAMM SCREEN 3D ?? GUS CAD, 09/05/2022. ??MAMMO GUS SCREEN, 07/08/2013. ??MAMMO GUS SCREEN, ?? 01/08/2009. ? INDICATIONS: ? Gus Screening Mammogram ? Calculator Name ? NCI Breast Cancer Risk Assessment Tool ?? 5 Year Breast Cancer Risk ? Not Reported. ?? Lifetime Breast Cancer Risk ? Not Reported. ?? Personal Breast Cancer ?No ?? Personal Ovarian Cancer ? No ?? Treatments ? None ?? Family Cancers ? None ? LOCATION: ? [facility] ? BREAST COMPOSITION: ? There are scattered areas of fibroglandular density. ? FINDINGS: ? DIAGNOSTIC CATEGORY 1--NEGATIVE. ? RIGHT BREAST: ??No significant suspicious finding. ??No significant change has ?? occurred. ? LEFT BREAST: ??No significant suspicious finding. ??No significant change has ?? occurred. ? RECOMMENDATIONS: ? ROUTINE MAMMOGRAM AND CLINICAL EVALUATION IN 12 MONTHS. ? PLEASE NOTE: ??A NORMAL MAMMOGRAM DOES NOT EXCLUDE THE POSSIBILITY OF BREAST ?? CANCER. ??A CLINICALLY SUSPICIOUS PALPABLE LUMP SHOULD BE BIOPSIED. ? Dictated by: Josh Rosales M.D. on 10/07/2024 at 11:36 ? Approved by: Josh Rosales M.D. on 10/07/2024 at 11:45 ? Dictated By: ?Josh Rosales M.D. ? Signed By: ?10/07/24 1147 ? DD/ 1146 ? TD/TT: ? Consolidator: Procedure Note Radiology, Radiologist, MD - 10/07/2024 [place] [address] Mammography Report Signed Patient: JORDY DUNNE MMR#: [id number] : 1960cct:[id number] Age/Sex: 64 / FADM Date: 10/07/24 Loc: MAMMO Attending Dr: Mela Daily FABRICATION OPERATOR Ordering Physician: Mela Daily NPResults: Date of Service: 10/07/24Follow Up: Procedure(s): MM tomosynthesis screening BI Accession Number(s): [id number] cc: Mela Daily NP Patient Name: JORDY DUNNE MR#: [id number] : 1960 Exam Date: 10/07/2024 Ordering Doctor: MAMADOU Daily ICE RINK ATTENDANT RADIOLOGY REPORT PROCEDURE: MM TOMOSYNTHESIS SCREENING BI COMPARISON: MM TOMOSYNTHESIS SCREENING BI, 09/30/2023. MG MAMM ZDAFRB1I GUS CAD, 09/05/2022. MAMMO GUS SCREEN, 07/08/2013. MAMMO GUS SCREEN, 01/08/2009. INDICATIONS: Gus Screening Mammogram Calculator Name NCI Breast Cancer Risk Assessment Tool 5 Year Breast Cancer Risk Not Reported. Lifetime Breast Cancer Risk Not Reported. Personal Breast Cancer No Personal Ovarian Cancer No Treatments None Family Cancers None LOCATION: [facility] BREAST COMPOSITION: There are scattered areas [...] M.D. Signed By:10/07/24 1147 DD/ 1146 TD/TT: Consolidator: Authorizing ProviderResult TypeResult StatusLisa Daily NPCLINISYNC IMAGING Final Result from Last 3 Months or Most Recently Relevant to Health Maintenance Insurance Care Teams Team MemberRelationshipSpecialtyStart DateEnd Date Jose Powers MD PCP - GeneralFamily Mvjxpadn36/28/23 Mela Daily NP [address] [place] [address] [facility]23 Mela Daily NP Nurse PractitionerFaCHI Memorial Hospital [place]08/18/23
--- OUTSIDE RECORDS SUMMARY | 2025-08-21 11:43 | XMS_ITS | Clinical Summary ---
Author Organization [facility] Address [address], [address] [place] [address] Care Team Providers Care Scaffolder Name Role Phone John Paul Lanier DO, Charles P Primary Care Provider + Allergies No known active allergies Medications MedicationSigDispense QuantityRefillsLast FilledStart DateEnd DateStatus gabapentin (NEURONTIN) 300 MG capsule Take 300 mg by mouth 3 times daily.Active Active Problems ProblemNoted DateDiagnosed DateRight leg /21/2020Weakness of right leg 09/10/2020 Family History Medical HistoryRelationNameCommentsHeart DiseaseFatherHigh Blood PressureMother RelationNameStatusCommentsFatherMother Social History Tobacco UseTypesPacks/DayYears UsedDateSmoking Tobacco: FormerCigarettes0.525 Smokeless Tobacco: Never Tobacco Cessation:Counseling Given: Yes Alcohol UseStandard Drinks/WeekCommentsNever0 (1 standard drink = 0.6 oz pure alcohol)AUDIT-CAnswerDate RecordedQ1: How often do you have a drink containing alcohol?Never09/10/2020Average Number of DrinksNot on file09/10/2020Frequency of Binge DrinkingNot on file09/10/2020CommentsNoSex and Gender Information ValueDate RecordedSex Assigned at BirthNot on fileLegal ZnxJfmwdu43/10/2013 6:37 PM ESTGender IdentityNot on fileSexual OrientationNot on file Last Filed Vital Signs Vital SignReadingTime TakenCommentsBlood Xmwilljv219/9409/11/2020 5:30 PM EST Bqtcj329109/11/2020 5:30 PM YPFRauydvfpvih07.3 ??C (97.3 ??F)11/30/2020 11:17 AM ESTRespiratory Kyzy740809/11/2020 5:30 PM ESTOxygen Thwoqakqjc91%09/11/2020 5:30 PM ESTInhaled Oxygen Concentration--Nnofvn47.5 kg (184 lb)11/30/2020 11:17 AM PWIQezzcf489.6 cm (5' 4 )11/30/2020 11:17 AM ESTBody Mass Index31.58011/30/2020 11:17 AM EST Plan of Treatment Not on file Advance Directives * Full Code (Latest Code Status on File) Date ActivatedDate IzquvnqrtglQdungzto35/21/2020 11:28 PM09/11/2020 6:33 PM * Full Code Date ActivatedDate AckuwflzxdaKzsvybuv76/21/2020 4:37 PM09/10/2020 11:28 PM NameRelationshipHealthcare Agent RelationshipCommunicationMoundview Memorial Hospital And Clinicsard [facility] Primary Decision Maker* Care Teams Team MemberRelationshipSpecialtyStart DateEnd Date Evan Coker Sr., DO [address] [place] [address] PCP - GeneralFamily Vzljtefh48/18/20
--- OUTSIDE RECORDS SUMMARY | 2025-08-21 12:04 | XMS_ITS | CCD ---
Author Organization [facility] Care Team Providers Care Bonderizer Operator Name Role Phone House, Sr Evan Lu Primary Care Provider JOSE MIGUEL, SR EVAN Lu Primary Care Unavailable FERNANDEZ RIOS Admitting Unavailable FERNANDEZ RIOS Attending Unavailable Evan Gillespie Primary Care Physician [phone] Orlando Cole Admitting Unavailable Douglas, Orlando Boothe Attending Unavailable Orlando Cole Referring Unavailable Cameron Singleton Admitting Unavailable Areli, Cameron Azul Attending Unavailable Cameron Singleton Referring Unavailable JOSE MIGUEL, DR MARADIAGA Admitting Unavailable JOSE MIGUEL, DR MARADIAGA Primary Care Unavailable HOUSE, DR MARADIAGA Consulting Unavailable HOUSE, DR MARADIAGA Attending Unavailable HOUSE, DR MARADIAGA Primary Care Unavailable HOUSE, DR MARADIAGA Consulting Unavailable HOUSE, DR MARADIAGA Attending Unavailable HOUSE, DR MARADIAGA Admitting Unavailable JOSELITO, DR MORA Saenz Consulting Unavailable Priya GONZALES, Jose Primary Care Provider Aichholwilly MINK SLICER, Mela Unavailable Jose Powers MD Primary Care Provider Aichholwilly MINK SLICER, Mela Unavailable Aichleilani MINK SLICER, Mela Unavailable Alex Teran DO Attending Provider HERNÁN SALDIVAR Attending Unavailable AICHHOLZ, MELA Attending Unavailable AICHHOLZ, MELA Attending Unavailable JUNO TAYLOR Attending Unavailable ABIMBOLA, MELA Attending Unavailable ALEX TERAN Attending Unavailable JUNO TAYLOR Referring Unavailable ABIMBOLA, MELA Attending Unavailable ALEX TERAN Attending Unavailable AICMELITON, MELA Attending Unavailable MELA DIALY Attending Unavailable Alex Teran Attending Unavailable Alex Teran Admitting Unavailable Aichholwilly MINK SLICER-C, Mela J Primary Care Provider [phone] Mela Conley Attending Provider [phone] Jose Powers MD Primary Care Provider [phone] Mela Daily NP Unavailable Abimbola FORDE, Mela Unavailable Allergies Allergy ClassificationReported Allergen(s)Allergy TypeDate of OnsetReaction(s) Facility (20 sources)empagliflozinDrug Kbrbxqk13-65-9503[facility] Work Phone: Medications Current Medications MedicationDrug Class(es)DatesSig (Normalized)Sig (Original)acetaminophen 325 mg / HYDROcodone bitartrate 5 mg oral tablet (4 sources)Opioid AgonistStart: 09-10-2020 End: 48-61-4010bttp 1 tablet by mouth every six hours as needed for pain1 tablet, Oral, EVERY 6 HOURS PRN, Pain Moderate (4-6), Starting 09/10/20 at 2045 Maximum dose of acetaminophen is 4000 mg from all sources in 24 hours. Start: 09-10-2020 End: 16-00-4741OVCRAxwdrpu-acetaminophen (NORCO) 5-325 MG per tablet 1 tablet Start: 09-07-2020 End: 93-40-0649jmvn 1 tablet by mouth twice dailyHYDROcodone-acetaminophen (NORCO) 5-325 MG per tablet Indications: Lumbar radiculopathy , Lumbar spo ndylosis , Weakness Take 1 tablet by mouth 2 times daily for 20 days. 40 tablet 0 09/07/2020 09/11/2020 Discontinued (Stop Taking at Discharge)acetaminophen 325 mg / oxyCODONE hydrochloride 5 mg oral tablet (1 source)Opioid AgonistStart: 09-11-2020 End: 11-58-9140pmwf 1 tablet by mouth every six hours as needed for pain, then take 1 tablet by mouth as needed for painoxyCODONE-acetaminophen (PERCOCET) 5- 325 MG per tablet Indications: Postoperative pain Take 1 tablet by mouth every 6 hours as needed for Pain for up to 14 days. Intended supply: 7 days. Take lowest dose possible to manage pain 28 tablet 0 09/11/2020 09/25/2020 ActiveamLODIPine 5 mg oral tablet (20 sources)Dihydropyridine Calcium Channel BlockerStart: 65-11-9791fetr 1 tablet by mouth once dailyAmlodipine 5 mg tablet Active 5 MG PO Daily July 07, 2025 12:00am Complies with drug therapyStart: 11-29-2024 End: 14-40-5597mgqs 1 tablet by mouth once dailyamLODIPine (Norvasc) 5 MG tablet Indications: Essential hypertension Take 1 tablet (5 mg) by mouth Daily 90 tablet 1 03/15/2025 06/13/2025 Activeaspirin 81 mg oral tablet (20 sources)Platelet Aggregation Inhibitor, Nonsteroidal Anti-inflammatory Drug Start: 00-16-5577kstb 1 tablet by mouth once dailyAspirin 81 mg tablet Active 81 MG PO Daily July 07, 2025 12:00am Complies with drug therapytake 1 tablet by mouth once dailyaspirin 81 MG EC tablet Take 81 mg by mouth Daily Active atorvastatin 40 mg oral tablet (20 sources)HMG-CoA Reductase InhibitorStart: 07-74-6352nkch 1 tablet by mouth once daily at bedtimeAtorvastatin 40 mg tablet Active 40 MG PO Daily at bedtime July 07, 2025 12:00am Complies withdrug therapyStart: 01-04-2025 End: 86-69-2043etaa 1 tablet by mouth at bedtimeatorvastatin (Lipitor) 40 MG tablet Indications: Mixed hyperlipidemia Take 1 tablet (40 mg) by mouth at bedtime 90 tablet 1 03/15/2025 06/13/2025 ActiveStart: 11-29-2024 End: 44-12-2116fsfz 1 tablet by mouth at bedtimeatorvastatin (Lipitor) 20 MG tablet Indications: Mixed hyperlipidemia (CMS/HCC) Take 1 tablet (20 mg) by mouth at bedtime 90 tablet 1 11/29/2024 01/04/2025 Discontinued (Ineffective) Start: 04-27-2024 End: 94-99-9649bmcs 1 tablet by mouth once dailyatorvastatin (Lipitor) 20 MG tablet Indications: Mixed hyperlipidemia (CMS/HCC) Take 1 tablet (20 mg) by mouth Daily 90 tablet 1 08/25/2024 11/23/2024 ActiveStart: 09-28-2023 End: 62-33-5175ybbv 1 tablet by mouth in the morningatorvastatin (Lipitor) 10 MG tablet Indications: Mixed hyperlipidemia (CMS/HCC) Take 1 tablet (10 mg) by mouth in the morning. 90 tablet 0 10/27/2023 01/25/2024 Activecephalexin 500 mg oral capsule (1 source)Cephalosporin AntibacterialStart: 09-11-2020 End: 58-64-9647islp 1 capsule by mouth three times dailycephALEXin (KEFLEX) 500 MG capsule Take 1 capsule by mouth 3 times daily for 7 days 21 capsule 0 09/18/2020 Activecyclobenzaprine hydrochloride 10 mg oral tablet (2 sources)Muscle RelaxantStart: 09-07-2020 End: 62-83-8989nowz 10 mg by mouth three times daily as needed for muscle spasms 10 mg, Oral, 3 TIMES DAILY PRN, Muscle spasms, Starting 09/10/20 at 2044 dapagliflozin 10 mg oral tablet (20 sources)Sodium-Glucose Cotransporter 2 InhibitorStart: 40-76-7045dwcs 1 tablet by mouth once dailyDapagliflozin Propanediol 10 mg tablet Active 10 MG PO Daily July 07, 2025 12:00am Complies with drug therapyStart: 11-29-2024 End: 36-33-7949xric 1 tablet by mouth once dailydapagliflozin (Farxiga) 10 MG Indications: Type 2 diabetes mellitus without complication, without long-term current use of insulin ([facility]) Take 1 tablet (10 mg) by mouth Daily 90 tablet 1 03/15/2025 06/13/2025 ActiveStart: 05-26-2024 End: 81-07-4549mzph 1 tablet by mouth once dailydapagliflozin (Farxiga) 5 MG Indications: Type 2 diabetes mellitus without complication, without long-term current use of insulin (CMS/HCC) Take 1 tablet (5 mg) by mouth Daily 90 tablet 1 08/25/2024 11/23/2024 Active1 ml dexamethasone phosphate 4 mg/ml injection (1 source)CorticosteroidStart: 86-78-1604wblykexvhffxh (DECADRON) injection 4 mg 0.4 ml enoxaparin sodium 100 mg/ml prefilled syringe (1 source)Low Molecular Weight HeparinStart: 32-97-6892shmsxhhyyh (LOVENOX) injection 40 mgStart: 05-64-3499tzufwcezrt (LOVENOX) injection 40 mggabapentin 300 mg oral capsule (3 sources)Anti-epileptic AgentStart: 09-07-2020 End: 44-19-0560ethd 300 mg by mouth three times maqzd386 mg, Oral, 3 TIMES DAILY, First dose on 09/10/20 at 2115indomethacin 25 mg oral capsule (3 sources)Nonsteroidal Anti-inflammatory DrugStart: 03-15-2025 End: 51-30-8096leuu 1 capsule by mouth three times daily at mealtime as needed for painindomethacin (Indocin) 25 MG capsule Indications: Left foot pain Take 1 capsule (25 mg) by mouth 3 (three) times a day as needed for mild pain (pain) for up to 10 days Take with food 30 capsule 03/15/2025 03/25/2025 Active lisinopril 30 mg oral tablet (20 sources)Angiotensin Converting Enzyme InhibitorStart: 87-28-4666xgmk 1 tablet by mouth once dailyLisinopril 30 mg tablet Active 30 MG PO Daily July 07, 2025 12:00am Complies with drug therapyStart: 04-25-2024 End: 42-05-2474qxse 1 tablet by mouth once dailylisinopril 30 MG tablet Indications: Essential hypertension Take 1 tablet (30 mg) by mouth Daily 90 tablet 1 03/15/2025 06/13/2025 ActiveStart: 10-26-2023 End: 10-51-5357dlyv 1 tablet by mouth in the morninglisinopril 10 MG tablet Indications: Essential hypertension (CMS/HCC) , Microalbuminuria Take 1 tablet (10 mg) by mouth in the morning. 90 tablet 1 10/26/2023 01/24/2024 Active metFORMIN hydrochloride 500 mg oral tablet (20 sources)BiguanideStart: 22-68-5231uaih 1 tablet by mouth twice daily at mealtimeMetformin 500 mg tablet Active 500 MG PO Twice daily with meals July 07, 2025 12:00am Complieswith drug therapyStart: 11-29-2024 End: 92-61-8003bkuj 1 tablet by mouth in the morningmetFORMIN (Glucophage) 500 MG tablet Indications: Type 2 diabetes mellitus without complication, without long-term current use of insulin ([facility]) Take 1 tablet (500 mg) by mouth in the morning and 1 tablet (500 mg) in the evening. Take with meals. 180 tablet 1 03/15/2025 06/13/2025 ActiveStart: 02-18-2024 End: 50-05-9112kntp 1 tablet by mouth in the morningmetFORMIN (Glucophage) 500 MG tablet Indications: Type 2 diabetes mellitus without complication, without long-term current use of insulin (CMS/HCC) Take 1 tablet (500 mg) by mouth in the morning and 1 tablet (500 mg) in the evening. Take with meals. 180 tablet 1 05/26/2024 08/24/2024 ActiveStart: 08-25-2023 End: 40-55-8408ogpo 1 tablet by mouth in the morningmetFORMIN (Glucophage) 500 MG tablet Indications: Type 2 diabetes mellitus without complication, without long-term current use of insulin (CMS/HCC) Take 1 tablet (500 mg) by mouth in the morning and 1 tablet (500 mg) in the evening. Take with meals. 180 tablet 1 08/25/2023 11/23/2023 ActiveStart: 09-11-2020 End: 90-83-4607vdjh 500 mg by mouth twice daily at fkkwgyst304 mg, Oral, 2 TIMES DAILY WITH MEALS, First dose on Thu09/11/20 at 0800morphine (PF) injection 2 mg (1 source)Start: 76-27-2778lzgmvmgp (PF) injection 2 mgondansetron 4 mg disintegrating oral tablet (13 sources)Serotonin-3 Receptor AntagonistStart: 01-04-2024 End: 52-31-9521ajaz 1 tablet by mouth every eight hours as needed for nausea and vomitingondansetron ODT (Zofran-ODT) 4 MG disintegrating tablet Take 4 mg by mouth every 8 (eight) hours ifneeded for nausea or vomiting 01/04/2024 01/04/2025 Discontinued (Therapy completed)polyethylene glycol 3350 41245 mg powder for oral solution (1 source)Osmotic LaxativeStart: 60-45-1825wbiwepccypbf glycol (GLYCOLAX) packet 17 gPromethazine (1 source)PhenothiazineStart: 01-67-5287bzddddxoksoz (PHENERGAN) tablet 12.5 mg 24 hr propranolol hydrochloride 60 mg extended release oral capsule (20 sources)beta-Adrenergic BlockerStart: 27-53-7505dpji 1 capsule by mouth every twenty-four hoursPropranolol 60 mg capsule,extended release 24 hr Active MG PO July 07, 2025 12:00am Complies with drug therapyStart: 11-29-2024 End: 83-04-6487ofvr 1 capsule by mouth once dailypropranolol LA (Inderal LA) 60 MG 24 hr capsule Indications: Essential hypertension Take 1 capsule (60 mg) by mouth Daily 90 capsule 1 03/15/2025 06/13/2025 ActiveStart: 05-10-2024 End: 83-46-9878coih 1 capsule by mouth once dailypropranolol LA (Inderal LA) 60 MG 24 hr capsule Indications: Essential hypertension (CMS/HCC) Take 1 capsule (60 mg) by mouth Daily 90 capsule 1 08/25/2024 11/23/2024 ActiveStart: 08-25-2023 End: 10-39-0874whlq 1 capsule by mouth every twenty-four hours in the morning propranolol LA (Inderal LA) 60 MG 24 hr capsule Indications: Essential hypertension (CMS/HCC) Take 1 capsule (60 mg) by mouth in the morning. 90 capsule 1 08/25/2023 05/10/2024 DiscontinuedStart: 06-24-2020 End: 66-70-1144rwgn 60 mg by mouth once daily60 mg, Oral, DAILY, First dose on Thu09/11/20 at 0900 Do not crush or break. End: 56-36-3914ntjp 1 tablet by mouth three times dailypropranolol (INDERAL) 10 MG tablet Take 10 mg by mouth 3 times daily 0 09/10/2020 Discontinued (Therapy completed)sennosides, senior care 8.6 mg oral tablet (1 source)Start: 09-11-2020 End: 54-46-2162zheh 2 tablets by mouth twice dailysenna (SENOKOT) 8.6 MG tablet Take 2 tablets by mouth 2 times daily 120 tablet 11 09/11/2020 09/11/2021 Active 1000 ml sodium chloride 9 mg/ml injection (4 sources)Start: 09-10-2020 End: 09-11-20200.9 % sodium chloride infusionStart: 79-21-7886grfkyu chloride flush 0.9 % injection 10 mL Completed/Discontinued Medications MedicationDrug Class(es)DatesSig (Normalized)Sig (Original)2 ml fentaNYL 0.05 mg/ml injection (1 source)Opioid AgonistStart: 09-10-2020 End: 21-88-0737sptkeCBR (SUBLIMAZE) injection 50 mcg1 ml HYDROmorphone hydrochloride 1 mg/ml cartridge (1 source)Opioid AgonistStart: 09-11-2020 End: 23-59-3553WJPLEbmwjylts (DILAUDID) injection 0.5 mgketorolac tromethamine 10 mg oral tablet (1 source)Nonsteroidal Anti-inflammatory Drug, Cyclooxygenase Inhibitor End: 58-81-5824ibbs 1 tablet by mouth every six hours as needed for pain ketorolac (TORADOL) 10 MG tablet Take 10 mg by mouth every 6 hours as needed for Pain 0 09/11/2020 Discontinued (Stop Taking at Discharge)LORazepam 0.5 mg oral tablet (1 source)BenzodiazepineStart: 09-10-2020 End: 79-32-6403XZGcrhvbk (ATIVAN) tablet 1 mgmethylPREDNISolone 4 mg oral tablet (1 source)CorticosteroidStart: 09-07-2020 End: 25-77-7753allpwlPMUCRTGgpnyg (MEDROL DOSEPACK) 4 MG tablet Indications: Lumbar radiculopathy , Lumbar spondylosis , Weakness Take by mouth. 1 kit 0 09/07/2020 09/11/2020 Discontinued (Stop Taking at Discharge)12 hr orphenadrine citrate 100 mg extended release oral tablet (1 source)Muscle RelaxantStart: 09-06-2020 End: 18-73-2197ozzq 1 tablet by mouth once dailyorphenadrine (NORFLEX) 100 MG extended release tablet Take 1 tablet by mouth daily 0 09/06/2020 09/11/2020 Discontinued (Stop Taking at Discharge) Problems Active Problems Problem ClassificationProblemDateDocumented DateEpisodic/ChronicDiabetes mellitus with complications (20 sources)Renal disorder due to type 2 diabetes mellitus; Translations: [Type 2 diabetes mellitus with diabetic nephropathy]Onset: hronic Diabetes mellitus without complication (20 sources)Type 2 diabetes mellitus without complication; Translations: [Type 2 diabetes mellitus without complications]Onset: 08-25-2023 Resolved: 944784-88-0783PlongsrMfjnfdcgh of lipid metabolism (20 sources)Mixed hyperlipidemia; Translations: [Mixed hyperlipidemia]Onset: 435701-16-1794NqcrevjGawfvtppx hypertension (20 sources)Essential hypertension; Translations: [Essential (primary) hypertension]Onset: 045438-53-3357IpvdtfeCzilxgsvyoxxz and screening for infectious disease (2 sources)Patient encounter status; Translations: [Encounter for screening for human papillomavirus (HPV)]17-01-0870IcflqhmfDujjh disorders and dislocations; trauma-related (20 sources)Articular cartilage disorder of shoulder region; Translations: [Other articular cartilage disorders, left shoulder]Onset: ChronicOsteoarthritis (20 sources)Osteoarthritis of left acromioclavicular joint; Translations: [Primary osteoarthritis, left shoulder]Onset: 154931-22-1855VahjybxMlmso and unspecified benign neoplasm (7 sources)Adenomatous polyp of colon ; Translations: [Benign neoplasm of transverse colon]Onset: 399132-34-8859WruzajjvJaxpw and unspecified benign neoplasm (1 source)Polyp of colon; Translations: [Polyp of colon]Onset: 04-27-2025 EpisodicOther nervous system disorders (1 source)Postoperative pain ; Translations: [Postoperative pain]EpisodicOther nutritional; endocrine; and metabolic disorders (20 sources)Body mass index 30+ - obesity; Translations: [Obesity, unspecified] Onset: 062918-90-3463XcgtpqxVnwds nutritional; endocrine; and metabolic disorders (1 source)Obesity; Translations: [Obesity, unspecified]20-33-8307NnwcicfOxjml upper respiratory disease (9 sources)Allergic disposition; Translations: [Other allergic rhinitis]Onset: 431317-62-7560NuyjeelXpyeyxyos (4 sources)Weakness of right leg; Translations: [Right leg weakness]Onset: 789753-78-9411Vwpgzicj codes; unclassified (7 sources)Family history of cancer of colon; Translations: [Family history of malignant neoplasm of digestiveorgans]Onset: 174898-10-8858Ktrzbfrf Spondylosis; intervertebral disc disorders; other back problems (20 sources)Prolapsed lumbar intervertebral disc; Translations: [Other intervertebral disc displacement, lumbarregion]Onset: Chronic Past or Other Problems Problem ClassificationProblemDateDocumented DateEpisodic/ChronicGenitourinary symptoms and ill-defined conditions (20 sources)Microalbuminuria; Translations: [Proteinuria, unspecified]Onset: 348640-60-5401YodseonpDygae and unspecified benign neoplasm (10 sources)History of polyp of colon; Translations: [Personal history of other colon polyps]Onset: 668144-81-6270QappdhfyIighz connective tissue disease (20 sources)Partial thickness rotator cuff tear; Translations: [Incomplete rotator cuff tear or rupture of unspecified shoulder, not specified as traumatic]Onset: 667885-47-7850IbejabndByaod connective tissue disease (16 sources)Pain in left foot; Translations: [Pain in left foot]Onset: 645523-99-2172HezmdtbhTqzvp nutritional; endocrine; and metabolic disorders (20 sources)Body mass index 25-29 - overweight; Translations: [Overweight]Onset: 05-26-2024 Resolved: 767980-52-4374MiozvvowHeqdm screening for suspected conditions (not mental disorders or infectious disease) (20 sources)Encounter for screening mammogram for malignant neoplasm of breast; Translations: [Patient encounter status]Onset: 09-05-2022 Resolved: 06-51-5020QdlkyfeiFhuyhfzmu and history of mental health and substance abuse codes (18 sources)Ex-smoker; Translations: [Personal history of nicotine dependence] Onset: 530473-82-3171CdiignbuPlspnggrs-vexyouw disorders (20 sources)Tobacco dependence syndrome; Translations: [Nicotine dependence, unspecified, uncomplicated]Onset: 05-26-2024 Resolved: hronic Results Test NameValueInterpretationReference RangeFacilityLon 04-27-2025 Specimen: [id number] Received: 04/27/25 Status: JALEESA Serna Num: [id number] Spec Type: Surgical Subm Dr: Alex Teran DO Tissues: A Colon Biopsy (TRANSVERSE COLON POLYP) Procedures: HE/Sarmad, Gross/Micro L4 Age/ Patient Sex Location Account Attending Physician Jordy Philip 64/F ID [id number] Alex Teran DO SPEC NUM: [id number] RECD: 04/27/25 STATUS: JALEESA SERNA NUM: [id number] EBONY: 04/27/[address] [facility] [address]: Alex Teran DO ENTERED: 04/27/[address] [facility] [address]: Ad[facility]fo [facility] SPEC TYPE: Surgical DEPT: S ENTERED BY: [id number] RECV BY: [id number] ORDERED: HE/2, Gross/Micro L4 ORDERED: , Gross/Micro L4 Pathological Diagnosis A. Colon, transverse polyp (endoscopic polypectomy/biopsy): Tubular adenoma, inflamed Clinical Information Personal history of colon polyps Gross Description Part A is received in formalin labeled with the patients name, date of , and transverse colon polyp is a everett-canela, focally erythematous, friable, 0.5 cm in greatest dimension polypoid fragment. The specimen is inked black at the apparent point of attachment, bisected, and entirely submitted in a single cassette. (1, ns, Z96- 6842 A) CPT Codes 72389 Specimen: [id number] Received: 04/27/25 Status: JALEESA Serna Num: [id number] Spec Type: Surgical Subm Dr: Alex Teran DO Tissues: A Colon Biopsy (TRANSVERSE COLON POLYP) Procedures: , Gross/Micro L4 Patient: Jordy Philip [id number] (Continued) Signed (signature on file) Evan Ochoa Jr., MD 04/28/[address] [place] [address] Physician GroupXR FOOT LT MIN 3Von 03-16-2025 [place] [address] XRay Report Signed Patient: JORDY PHILIP MR#: [id number] : 1960 Acct:[id number] Age/Sex: 64 / F ADM Date: 03/16/25 Loc: [facility] Attending Dr: Mela Daily NP Ordering Physician: Mela Daily NP Date of Service: 03/16/25 Procedure(s): XR foot LT min 3V Accession Number(s): [id number] cc: Mela Daily NP [place] [id number] Patient Name: JORDY PHILIP MRN: [id number] date: 1960 Sex: F Assigned Patient Location: [facility] Current Patient Location: [facility] Accession/Order Number: [id number] Exam Date: 03/16/2025 09:50 Report Date: 03/16/2025 09:51 At the request of: MELA DAILY NP Procedure: XR foot LT min 3V LEFT FOOT - 3 views CLINICAL DATA: Dorsal medial left foot pain for the past 2 weeks. No injury. COMPARISON: None AP, lateral and oblique views were obtained. There is no evidence of fracture or dislocation. A plantar calcaneal spur is seen. There are no significant soft tissue abnormalities. XR/XR foot LT min 3V IMPRESSION: NO ACUTE BONY FINDINGS. Impression dictated by: Mili Christy M.D. 03/16/2025 9:51 AM Dictation Location: I Do Now I Don't Electronically authenticated by: [id number] Y Date: 03/16/2025 09:51 Dictated By: Mili Christy M.D. Signed By: 03/16/2554 DD/ 0 TD/TT: Esl Instructional Assistant:MOOSEadiology, Radiologist, - 03/16/2025 [place] [address] XRay Report Signed Patient: JORDY PHILIP MR#: [id number] : 1960 Acct:[id number] Age/Sex: 64 / F ADM Date: 03/16/25 Loc: [facility] Attending Dr: Mela Daily NP Ordering Physician: Mela Daily NP Date of Service: 03/16/25 Procedure(s): XR foot LT min 3V Accession Number(s): [id number] cc: Mela Daily NP [place] [address] Patient Name: JORDY PHILIP MRN: [id number] date: 1960 Sex: F Assigned Patient Location: [facility] Current Patient Location: [facility] Accession/Order Number: [id number] Exam Date: 03/16/2025 09:50 Report Date: 03/16/2025 09:51 At the request of: MELA DAILY NP Procedure: XR foot LT min 3V LEFT FOOT - 3 views CLINICAL DATA: Dorsal medial left foot pain for the past 2 weeks. No injury. COMPARISON: None AP, lateral and oblique views were obtained. There is no evidence of fracture or dislocation. A plantar calcaneal spur is seen. There are no significant soft tissue abnormalities. XR/XR foot LT min 3V IMPRESSION: NO ACUTE BONY FINDINGS. Impression dictated by: Mili Christy M.D. 03/16/2025 9:51 AM Dictation Location: I Do Now I Don't Electronically authenticated by: [id number] Y Date: 03/16/2025 09:51 Dictated By: Mili Christy M.D. Signed By: 03/16/25 0954 DD/ 0951 TD/TT: Esl Instructional Assistant: [facility] HospitalRadiology Study observation (narrative)[facility] HospitalXR FOOT LT MIN 3VOrdered By: Radiologist Radiology on 92-89-8737NUXZWashington County Memorial Hospital Work Phone: HbA1c (Bld) [Mass fraction]on 60-43-7873Jnpwqcotmpqgjl and review of laboratory resultsAbnormalFormerly [facility] SouthLaboratory - Hematology and Cell countson 70-19-8000MzK6b (Bld) [Mass fraction]7.4 %[facility] TOMOSYNTHESIS SCREENING BIon 29-36[place], [place] [address] Mammography Report Signed Patient: JORDY PHILIP MR#: [id number] : 1960 Acct:[id number] Age/Sex: 64 / F ADM Date: 10/07/24 Loc: MAMMO Attending Dr: Mela Daily NP Ordering Physician: Mela Daily NP Results: Date of Service: 10/07/24 Follow Up: Procedure(s): MM tomosynthesis screening BI Accession Number(s): [id number] cc: Mela Daily NP Patient Name: JORDY PHILIP MR#: [id number] : 1960 Exam Date: 10/07/2024 Ordering Doctor: MAMADOU Daily [employer] ENGINEER RADIOLOGY REPORT PROCEDURE: MM TOMOSYNTHESIS SCREENING BI [...] Treatments None Family Cancers None LOCATION: The [facility] BREAST COMPOSITION: There are scattered areas [...] BIOPSIED. Dictated by: Mora Rosales M.D. on 10/07/2024 at 11:36 Approved by: Mora Rosales M.D. on 10/07/2024 at 11:45 Dictated By: Mora Rosales M.D. Signed By: 10/07/24 1147 DD/ 1146 TD/TT: Esl Instructional Assistant:TBHRadiology, Radiologist, - 10/07/2024 [place] [address] Mammography Report Signed Patient: JORDY PHILIP MR#: [id number] : 1960 Acct:[id number] Age/Sex: 64 / F ADM Date: 10/07/24 Loc: MAMMO Attending Dr: Mela Daily NP Ordering Physician: Mela Daily NP Results: Date of Service: 10/07/24 Follow Up: Procedure(s): MM tomosynthesis screening BI Accession Number(s): [id number] cc: Mela Daily NP Patient Name: JORDY PHILIP MR#: [id number] : 1960 Exam Date: 10/07/2024 Ordering Doctor: [...] Treatments None Family Cancers None LOCATION: [facility] BREAST COMPOSITION: There are scattered areas [...] BIOPSIED. Dictated by: Mora Rosales M.D. on 10/07/2024 at 11:36 Approved by: Mora Rosales M.D. on 10/07/2024 at 11:45 Dictated By: Mora Rosales M.D. Signed By: 10/07/24 1147 DD/ 1146 TD/TT: Esl Instructional Assistant: [facility] HospitalRadiology Study observation (narrative)[facility] TOMOSYNTHESIS SCREENING BIOrdered By: Radiologist Radiology on 39-53-3513BVRYWashington County Memorial Hospital Work Phone: HbA1c (Bld) [Mass fraction]on 61-82-7266Voqukueonpdjef and review of laboratory resultsAbFormerly [facility] HospitalLaboratory - Hematology and Cell countson 46-27-4110NaU1m (Bld) [Mass fraction]6.10 %[facility] HospitalMLR HEMOGLOBIN A1Con 34-03-5151Ooqunxr [Mass/Vol]140 mg/dLWashington County Memorial HospitalHbA1c (Bld) [Mass fraction]6.5 %High4.5 - 6.2 %[facility] HospitalComment on above:ADA RECOMMENDED LIMIT 4.0 - 6.0 ADA THERAPEUTIC TARGET < 7.0 ACTION SUGGESTED > 7.0 Interpretation and review of laboratory resultsAbAscension Borgess-Pipp HospitalCLINISYNFormerly [facility] TOMOSYNTHESIS SCREENING BIon 06-03-[place], [place] [address] Mammography Report Signed Patient: JORDY PHILIP MR#: [id number] : 1960 Acct:[id number] Age/Sex: 63 / F ADM Date: 09/30/23 Loc: MAMMO Attending Dr: Mela Daily NP Ordering Physician: Mela Daily NP Results: Date of Service: 09/30/23 Follow Up: Procedure(s): MM tomosynthesis screening BI Accession Number(s): [id number] cc: Mela Daily NP Patient Name: JORDY PHILIP MR#: [id number] : 1960 Exam Date: 09/30/2023 Ordering Doctor: [...] Treatments None Family Cancers None LOCATION: [facility] BREAST COMPOSITION: Scattered areas fibroglandular density. [...] BIOPSIED. Dictated by: Mora Rosales M.D. on 09/30/2023 at 10:38 Approved by: Mora Rosales M.D. on 09/30/2023 at 10:41 Dictated By: Mora Rosales M.D. Signed By: 09/30/23 1042 DD/ 1041 TD/TT: Esl Instructional Assistant:TBHRadiology, Radiologist, MD - 09/30/2023 [place] [address] Mammography Report Signed Patient: JORDY PHILIP MR#: [id number] : 1960 Acct:[id number] Age/Sex: 63 / F ADM Date: 09/30/23 Loc: MAMMO Attending Dr: Mela Daily NP Ordering Physician: Mela Daily NP Results: Date of Service: 09/30/23 Follow Up: Procedure(s): MM tomosynthesis screening BI Accession Number(s): [id number] cc: Mela Daily NP Patient Name: JORDY PHILIP MR#: [id number] : 1960 Exam Date: 09/30/2023 Ordering Doctor: [...] No Treatments None Family Cancers None LOCATION: [facility] BREAST COMPOSITION: Scattered areas fibroglandular density. FINDINGS: [...] BIOPSIED. Dictated by: Mora Rosales M.D. on 09/30/2023 at 10:38 Approved by: Mora Rosales M.D. on 09/30/2023 at 10:41 Dictated By: Mora Rosales M.D. Signed By: 09/30/23 1042 DD/ 1041 TD/TT: Esl Instructional Assistant: [facility]IN HealthcareRadiology Study observation (narrative)[facility] TOMOSYNTHESIS SCREENING BIOrdered By: Radiologist Radiology on 38-49-6083[facility] Work Phone: MG MAMM SCREEN 3D GUS CADon 09-08-1244VS MAMM SCREEN 3D GUS CADPatient: JORDY PHILIP Exam Date: 09/05/2022 : 1960 Gender:F Ordering : DR EVAN GILLESPIE DRolandaORolanda Admission #: [id number] Family : Order #: [id number] CLICK HERE TO VIEW EXAM RADIOLOGY REPORT PROCEDURE: MAMMOGRAM SCREENING 3D BILATERAL CAD COMPARISON: MAMMO GUS SCREEN, 07/08/2013. MAMMO GUS SCREEN, 01/08/2009. INDICATIONS: Screening mammography Calculator Name NCI Breast Cancer Risk Assessment Tool 5 Year Breast Cancer Risk Not Reported. Lifetime Breast Cancer Risk Not Reported. Personal Breast Cancer No Personal Ovarian Cancer No Treatments None Family Cancers None LOCATION: [facility] BREAST COMPOSITION: Scattered areas fibroglandular density. [...] by: Mora Rosales M.D. on 09/08/2022 at 13:34[facility] - YoungstownCoding Summary.on 39-15-8566Usnpdc Summary. CD:[id number]+PGhlYWQ+OC0BJJZqF04diFJfwO9HI1eLOE7MYWOCKNDJBZ3IHE5wr ZJ9DNxpL8ShdgLj [file] bGFw (more content not included)...NormalSelect Medical Specialty Hospital - CincinnatiAuto Diffon 40-15-4906Ilcbbwlgs/100 WBC (Bld)0.6 %Normal0.0-2.0[facility] Comment on above:Order Comment: Order Added by Discern Expert.Performed By: #### [id number], 8897627, 6761488, 2843386, [id number] #### [facility] [address] [place] [address] 20108Hrfpkgqix/Leukocytes Auto (Bld) [Pure # fraction]0.0 E9/LNormal 0.0-0.2[facility] Medical CenterComment on above:Order Comment: Order Added by Discern Expert.Performed By: #### [id number], 3577070, 4177919, 9544264, 99552507 #### [facility] [address] [place] [address] 50358Mitfzavccrw/100 WBC (Bld)1.3 %Normal0.0-8.0[facility] Hospital - CincinnatiComment on above:Order Comment: Order Added by Discern Expert.Performed By: #### [id number], 3299912, 3028797, 9694192, 84595616 #### [facility] [address] [place] [address] 96582Mllixambfnt/Leukocytes Auto (Bld) [Pure # fraction]0.1 E9/L Normal0.0-0.5FKing's Daughters Medical Center OhioComment on above:Order Comment: Order Added by Discern Expert.Performed By: #### [id number], 3118477, 3332414, 4088376, 36522079 #### [facility] [address] [place] [address] 68757Wldldcpyasu/100 WBC (Bld)32.4 %Mqegwx91.0-50.0[facility] Hospital - CincinnatiComment on above:Order Comment: Order Added by Discern Expert. Performed By: #### [id number], 1123085, 1195649, 4862468, 37933370 #### [facility] [address] [place] [address] 10521Vxvexsmigde/Leukocytes Auto (Bld) [Pure # fraction]2.1 E9/L Normal1.0-4.0[facility] Hospital - CincinnatiComment on above:Order Comment: Order Added by Discern Expert.Performed By: #### [id number], 8497285, 4628423, 2343031, 38495216 #### [facility] [address] [place] [address] 59890Hkajpolvo/100 WBC (Bld)7.6 %Normal4.0-14.0[facility] Hospital - CincinnatiComment on above:Order Comment: Order Added by Discern Expert.Performed By: #### [id number], 5956521, 4265656, 6228010, 20842411 #### [facility] [address] [place] [address] 64603Ueceizdek/Leukocytes Auto (Bld) [Pure # fraction]0.5 E9/LNormal 0.2-1.0[facility] Hospital - CincinnatiComment on above:Order Comment: Order Added by Discern Expert.Performed By: #### [id number], 1618490, 6182143, 1629088, 68420255 #### [facility] [address] [place] [address] 67732Tvbugzumgkf/100 WBC (Bld)58.1 %Jayjht12.0-75.0[facility] Hospital - CincinnatiComment on above:Order Comment: Order Added by Discern Expert. Performed By: #### [id number], 2654473, 8613537, 8322759, 81542158 #### [facility] [address] [place] [address] 37525Jjztjvlepio/Leukocytes Auto (Bld) [Pure # fraction]3.7 E9/L Normal2.0-7.5FKing's Daughters Medical Center OhioComment on above:Order Comment: Order Added by Discern Expert.Performed By: #### [id number], 4793878, 3392677, 4258022, 52186815 #### [facility] [address] [place] [address] 08601ANYpa 43-43-9315Fjigs gap [Moles/Vol]11 mmol/LNormal6-16[facility] Hospital - CincinnatiComment on above:Performed By: #### 121843981, 1934578, 0702088, 6286469, 21149007 #### [facility] [address] [place] [address] 17489Dybzjnt [Mass/Vol]9.1 mg/dLNormal8.9-11.1FKing's Daughters Medical Center OhioComment on above:Performed By: #### [id number], 2512903, 0039133, 0132210, 74267949 #### [facility] [address] [place] [address] 38430Dcczhizu [Moles/Vol]102 mmol/NDizhlw876-265RwgrlsSelect Medical Specialty Hospital - CincinnatiComment on above:Performed By: #### 332930072, 1063922, 4421922, 7096819, 80610842 #### [facility] [address], [place] [address]MI1 [Moles/Vol]28 mmol/EHigznm31-57ImsqpzSelect Medical Specialty Hospital - Cincinnati Comment on above:Performed By: #### [id number], 5629069, 2562955, 9212357, 19376458 #### [facility] [address], [place] [address]Pqdxafjzre [Mass/Vol]0.7 mg/dLNormal0.5-1.3FKing's Daughters Medical Center OhioComment on above:Performed By: #### 478373101, 0534816, 5118683, 5806612, 20559743 #### [facility] [address] [place] [address] 60975Amgvygg [Mass/Vol]115 mg/uJBkyeuy41-221RnelnnSelect Medical Specialty Hospital - CincinnatiComment on above:Result Comment: If this glucose result represents a fasting glucose, interpretation should refer tothe following reference range: 55-99 mg/dLPerformed By: #### [id number], 0589600, 4686098, 1846840, 63294458 #### [facility] [address], [place] [address]Nyaddebjm [Moles/Vol]4.1 mmol/LNormal3.5-5.3FKing's Daughters Medical Center OhioComment on above:Performed By: #### 748252418, 9523373, 2568107, 8773072, 56414721 #### [facility] [address], [place] [address]Qyjvzl [Moles/Vol]137 mmol/VWaknyq800-570UbndeeSelect Medical Specialty Hospital - CincinnatiComment on above:Performed By: #### 787670587, 0447695, 0480180, 7088975, 17853208 #### [facility] [address], [place] [address]Bopz nitrogen [Mass/Vol]14 mg/dLNormal5-21[facility] Hospital - CincinnatiComment on above:Performed By: #### 788063328, 5818907, 0627155, 6929435, 95827352 #### [facility] [address], [place] [address]Gnqo nitrogen/Creatinine [Mass ratio]20 No CqxrtKjxcjs99-15 [facility] Hospital - CincinnatiComment on above:Performed By: #### 014680746, 7214359, 5891315, 9364006, 70226747 #### [facility] [address] [place] [address] 97812AQR w/ Auto Diffon 56-52-7399Ijipxnrkkaj distribution width (RBC) [Ratio]13.7 %Qylwxa80.9-14.2FKing's Daughters Medical Center OhioComment on above: Performed By: #### 237231653, 8138368, 3160769, 0289012, 78622693 #### [facility] [address] [place] [address] 39469Sularuufjh (Bld) [Volume fraction]41.6 %Yxebto58.0-46.0[facility] Hospital - CincinnatiComment on above:Performed By: #### 089098319, 4226060, 6263450, 4120673, 12907120 #### [facility] [address] [place] [address] 77487Luvpcfntjf (Bld) [Mass/Vol]14.7 g/qBRrdxfq51.0-16.0[facility] Hospital - CincinnatiComment on above:Performed By: #### 510955966, 1238978, 3134751, 4979665, 78180535 #### [facility] [address], [place] [address]KSY (RBC) [Entitic mass]32.5 uaCavtxr39.0-34.0[facility] Hospital - CincinnatiComment on above:Performed By: #### 653743104, 4742175, 4331950, 6207751, 52065223 #### [facility] [address] [place] [address] 46858WPOO (RBC) [Mass/Vol]35.4 g/lYGvfhes17.4-36.0[facility] Hospital - CincinnatiComment on above:Performed By: #### 676814601, 2535445, 5642010, 4994534, 07055925 #### [facility] [address] [place] [address] 67499NSN (RBC) [Entitic vol]91.8 cGEqisym66.0-100.0[facility] Hospital - CincinnatiComment on above:Performed By: #### 678040596, 0047774, 7597107, 3309592, 25369427 #### [facility] [address] [place] [address] 40933Tfgvjfai mean volume (Bld) [Entitic vol]9.3 fLNormal6.4-10.8 [facility] Hospital - CincinnatiComment on above:Performed By: #### 803443089, 2400985, 6023435, 4963095, 93385625 #### [facility] [address] [place] [address] 58378Tacesldgg (Bld) [#/Vol]181.0 E9/WPrblgb188.0-500.0[facility] Hospital - CincinnatiComment on above:Performed By: #### 913456015, 5326205, 6178476, 2581994, 25142958 #### [facility] [address] [place] [address] 35450COU (Bld) [#/Vol]4.5 E12/LNormal4.3-5.9[facility] Hospital - CincinnatiComment on above:Performed By: #### 124316090, 7164337, 3226276, 3978627, 40010250 #### [facility] [address] [place] [address] 45567PRH corrected for nucl RBC Auto (Bld) [#/Vol]6.4 E9/LNormal 4.0-11.0[facility] Hospital - CincinnatiComment on above:Performed By: #### 856047017, 0091270, 0018590, 8277752, 50106606 #### [facility] [address] [place], [place] [address]dict Teresa [place], [place] [address]YFBKEYHWERklfjjb By: SYSTEM SYSTEM on 22-69-1255Linzv gap [Moles/Vol]11 mmol/LNormal6 - 16 mEq/LFTMC RemisolCalcium [Mass/Vol]9.1 mg/dL Normal8.9 - 11.1 mg/dLFT RemisolChloride [Moles/Vol]102 mmol/FGgyczl445 - 111 mmol/LFTMC RemisolCO2 [Moles/Vol]28 mmol/WEimiat34 - 31 mmol/LFTMC Remisol Creatinine [Mass/Vol]0.7 mg/dLNormal0.5 - 1.3 mg/dLFT RemisolGFR/1.73 sq M.predicted among blacks MDRD (S/P/Bld) [Vol rate/Area]mL/min/1.73 e8Zxbboo >=59mL/min/1.73 m2[facility] Chem SGFR/1.73 sq M.predicted among non-blacks MDRD (S/P/Bld) [Vol rate/Area]mL/min/1.73 v7Lnrame>=59mL/min/1.73 m2[facility] Chem S Glucose [Mass/Vol]115 mg/wPPfpkre30 - 199 mg/dLFT RemisolPotassium [Moles/Vol] 4.1 mmol/LNormal3.5 - 5.3 mmol/LFTMC RemisolSodium [Moles/Vol]137 mmol/LNormal 135 - 145 mmol/LFTMC RemisolUrea nitrogen [Mass/Vol]14 mg/dLNormal5 - 21 mg/dL [facility] RemisolUrea nitrogen/Creatinine [Mass ratio]20 mg/kuFjrwse65 - 20FT RemisolCHEMISTRYOrdered By: Rubi Mejia on 62-00-3596PeP7c (Bld) [Mass fraction]6.2 %High<=5.9%[facility] ChemAutoSSConsent for Treatmenton 57-55-6348Xbimbih for [id number]#1.00CD:127NormalFisher [facility] Medical CenterHEMATOLOGYOrdered By: SYSTEM SYSTEM on 05-30-2022 Basophils/100 WBC (Bld)0.6 %Normal0.0 - 2.0 %[facility] HemeAutoSSBasophils/Leukocytes Auto (Bld) [Pure # fraction]0.0 E9/LNormal0.0 - 0.2 E9/LFTMC HemeAutoSS Eosinophils/100 WBC (Bld)1.3 %Normal0.0 - 8.0 %[facility] HemeAutoSS Eosinophils/Leukocytes Auto (Bld) [Pure # fraction]0.1 E9/LNormal0.0 - 0.5 E9/L [facility] HemeAutoSSLymphocytes/100 WBC (Bld)32.4 %Fwsdkp35.0 - 50.0 %[facility] HemeAutoSS Lymphocytes/Leukocytes Auto (Bld) [Pure # fraction]2.1 E9/LNormal1.0 - 4.0 E9/L [facility] HemeAutoSSMonocytes/100 WBC (Bld)7.6 %Normal4.0 - 14.0 %[facility] HemeAutoSS Monocytes/Leukocytes Auto (Bld) [Pure # fraction]0.5 E9/LNormal0.2 - 1.0 E9/L [facility] HemeAutoSSNeutrophils/100 WBC (Bld)58.1 %Qyyfqb52.0 - 75.0 %[facility] HemeAutoSS Neutrophils/Leukocytes Auto (Bld) [Pure # fraction]3.7 E9/LNormal2.0 - 7.5 E9/L [facility] HemeAutoSSHEMATOLOGYOrdered By: Breanne Topete on 60-39-5041Czxqzgukkxu distribution width (RBC) [Ratio]13.7 %Usspxs71.9 - 14.2 %[facility] HemeAutoSS Hematocrit (Bld) [Volume fraction]41.6 %Gyircg17.0 - 46.0 %[facility] HemeAutoSS Hemoglobin (Bld) [Mass/Vol]14.7 g/dVSnsouu27.0 - 16.0 gm/dLFTMC HemeAutoSSMCH (RBC) [Entitic mass]32.5 chJzagwp56.0 - 34.0 pgFTMC HemeAutoSSMCHC (RBC) [Mass/Vol]35.4 g/zTIngtqx25.4 - 36.0 gm/dLOKLAH[facility] SUR[facility] HemeAutoSSMCV (RBC) [Entitic vol] 91.8 fAFcqflo76.0 - 100.0 fLOKLAHOMA SURGICAL HOSPITAL – [facility] HemeAutoSSPlatelet mean volume (Bld) [Entitic vol]9.3 fLNormal6.4 - 10.8 fLOKLAHOMA SURGICAL HOSPITAL – [facility] HemeAutoSSPlatelets (Bld) [#/Vol]181.0 E9/L Vbsepg323.0 - 500.0 E9/LFTMC HemeAutoSSRBC (Bld) [#/Vol]4.5 E12/LNormal4.3 - 5.9 E12/LFWAGONER [facility] HemeAutoSSWBC corrected for nucl RBC Auto (Bld) [#/Vol]6.4 E9/LNormal 4.0 - 11.0 E9/LFWAGONER [facility] SdavGlqdPMDusK9iva 01-34-1853LwG0o (Bld) [Mass fraction]6.2 %High<=5.9[facility] - CincinnatiComment on above:Performed By: #### [id number], 1959727, 8251639, 6577356, 98359800 #### [facility] [address], [place] [address]YV Chest 2 Viewson 85-11-1115PZ Chest 2 ViewsExam Date/Time: 05/30/2022 08:10 EDT Reason for Exam: M75.42 Report IMPRESSION: NO EVIDENCE OF ACTIVE CHEST DISEASE. CLINICAL HISTORY: M75.42. Preop. COMMENT: The heart is normal in size. The mediastinum is unremarkable. The lungs appear clear. No infiltration nor pleural effusion is evident. FINAL REPORT Dictated: 05/30/2022 10:47 am Mkie Oconnor M.D. Signed (Electronic Signature): 05/30/2022 10:47 am Signed by: Mike Oconnor M.D. Transcribed by: JODEE Technologist: NADEGEFostoria City HospitaleGFRon 21-50-2375TML/1.73 sq M.predicted among blacks MDRD (S/P/Bld) [Vol rate/Area] mL/min/{1.73_m2}Normal>=59[facility] - CincinnatiComment on above:Order Comment: Order added by Discern Expert.Result Comment: eGFR is race adjusted. AA=.Performed By: #### [id number], 2633852, 1970947, 8858659, 25087457 #### [facility] [address], [place] [address]EAE/1.73 sq M.predicted among non-blacks MDRD (S/P/Bld) [Vol rate/Area]mL/min/{1.73_m2}Normal>=59[facility] - CincinnatiComment on above: Order Comment: Order added by Discern Expert.Result Comment: Chronic kidney disease could be indicated at eGFR's of less than 60 mL/min/1.73m2. Kidney failure is indicated at less than 15 mL/min/1.73m2.Performed By: #### [id number], 0890852, 4000339, 2427955, 25126730 #### [facility] [address], [place] [address]Hhrqaebig Orderon 43-34-1326Lnmmtirax Order [id number]#1.00CD:127NormalSelect Medical Specialty Hospital - CincinnatiCBC AUTO DIFFon 88-51-6117JIOA #0.0 103/ulNormal0.0-0.1[facility] Osteopathic ClinicComment on above:Performed By: #### CBC #### [facility] [address] [place] [address] Dr. Farhat McneilBasophils/100 WBC (Bld)0.6 %Normal0.2-2.0The [facility] Comment on above:Performed By: #### CBC #### [facility] [address] [address] [address] Farhat Baez #0.1 103/ulNormal0.0-0.7The [facility] HospitalComment on above: Performed By: #### CBC #### [facility] [address] [address] [address] Farhat Laraosinophils/100 WBC (Bld)1.1 %Normal0.9-7.0The [facility] Comment on above:Performed By: #### CBC #### [facility] [address] [place] [address] Dr. Farhat Lararythrocyte distribution width (RBC) [Ratio]12.3 %Rhexuh62.0-15.0 [facility] ClinicComment on above:Performed By: #### CBC #### [facility] [address] [place] [address] Dr. Farhat McneilHematocrit (Bld) [Volume fraction]43.6 %Qfslsq80.0-48.0The [facility] HospitalComment on above:Performed By: #### CBC #### [facility] [address] [place] [address] Dr. Farhat McneilHemoglobin (Bld) [Mass/Vol]15.0 g/sFDwpevv13.0-16.0The [facility] HospitalComment on above:Performed By: #### CBC #### [facility] [address] [place] [address] Dr. Farhat Hector #0.02 10e3/ulNormal0.00-0.03The [facility] HospitalComment on above:Performed By: #### CBC #### [facility] [address] [place] [address] Dr. Farhat Hector %0.3 %Normal0.0-0.5The [facility] HospitalComment on above: Performed By: #### CBC #### [facility] [address] [place] [address] Dr. Farhat Pina #2.2 103/ulNormal1.2-3.8The [facility] HospitalComment on above:Performed By: #### CBC #### [facility] [address] [place] [address] Dr. Farhat Andrewhocytes/100 WBC (Bld)31.0 %Xnsymh26.5-60.0The [facility] HospitalComment on above:Performed By: #### CBC #### [facility] [address] [place] [address] Dr. Yilan ChangMANUAL DIFF REQNONormalThe [facility] HospitalComment on above: Performed By: #### CBC #### [facility] [address] [place] [address] Dr. Farhat Francis (RBC) [Entitic mass]31.5 rhDqmwyx81.7-34.0The [facility] HospitalComment on above:Performed By: #### CBC #### [facility] [address] [place] [address] Dr. Farhat Francis (RBC) [Mass/Vol]34.4 g/tTLirfyn43.9-35.2The [facility]o HospitalComment on above:Performed By: #### CBC #### [facility] [address] [place] [address] Dr. Farhat Francis (RBC) [Entitic vol]91.6 jQVvkfra90.0-99.0The [facility] HospitalComment on above:Performed By: #### CBC #### [facility] [address] [place] [address] Dr. Farhat Menendez #0.5 103/ulNormal0.3-0.8The [facility] HospitalComment on above:Performed By: #### CBC #### [facility] [address] [place] [address] Dr. Farhat Andresocytes/100 WBC (Bld)6.3 %Normal1.7-12.0The [facility] Comment on above:Performed By: #### CBC #### [facility] [address] [place] [address] Dr. Farhat Babin #4.3 103/ulNormal1.4-6.5The [facility] HospitalComment on above:Performed By: #### CBC #### [facility] [address] [place] [address] Dr. Farhat Cravenutrophils/100 WBC (Bld)60.7 %Icuuca58.0-75.0The [facility] HospitalComment on above:Performed By: #### CBC #### [facility] [address] [place] [address] Dr. Yilan ChangPlatelet mean volume (Bld) [Entitic vol]10.6 fLNormal9.5-13.5The [facility] HospitalComment on above:Performed By: #### CBC #### [facility] [address] [place] [address] Dr. Farhat McneilPLT187 103/edWilnrg695-948Eug [facility] HospitalComment on above: Performed By: #### CBC #### [facility] [address] [place] [address] Dr. Farhat McneilRBC4.76 106/ulNormal4.20-5.40The [facility] HospitalComment on above:Performed By: #### CBC #### [facility] [address] [place] [address] Dr. Farhat McneilWBC7.1 103/ulNormal4.0-11.0The [facility] HospitalComment on above: Performed By: #### CBC #### [facility] [address] [place] [address] Dr. Farhat BasilioID PROFILEon 87-80-1829RIZV-HDL RATIO NORMSEE [facility] County Medical CenterComment on above:Result Comment: 3.3 - 4.4 LOW RISK 4.4 - 7.1 AVERAGE RISK 7.1 - 11.0 MODERATE RISK >11.0 HIGH RISKPerformed By: #### LIPID, T4, CMP, TSH #### [facility] [address] [place] [address] Dr. Farhat McneilCholesterol [Mass/Vol]286 mg/dLCritically high<=200[facility] [facility] on above:Performed By: #### LIPID, T4, CMP, TSH #### [facility] [address] [place] [address] Dr. Farhat Dunbaresterol in HDL [Mass/Vol]44 mg/dLSelect Medical Specialty [facility] [place] Comment on above:Performed By: #### LIPID, T4, CMP, TSH #### [facility] [address] [place] [address] Dr. Farhat Dunbaresterol in LDL [Mass/Vol]187.2 mg/dLSelect Medical Specialty Hospital - YoungstownComment on above:Performed By: #### LIPID, T4, CMP, TSH #### [facility] [address] [place] [address] Dr. Farhat McneilCholesterol.total/Cholesterol in HDL [Mass ratio]6.5 {ratio} NormalAv[facility] on above:Performed By: #### LIPID, T4, CMP, TSH #### [facility] [address] [place] [address] Dr. Farhat Dawson NORMAL> or = 60 mg/dl - LOW CARDIOVASCULAR RISK <40 mg/dl - HIGH CARDIOVASCULAR RISKSelect Medical Specialty Hospital - YoungstownComjohn d. [facility] on above:Performed By: #### LIPID, T4, CMP, TSH #### [facility] [address] [place] [address] Dr. Farhat Littlejohn CALC NORMALSEE BELOWSelect Medical Specialty Hospital - YoungstownComjohn d. dingell veterans affairs [facility] center on above:Result Comment: <100 mg/dl OPTIMAL 100 - 129 mg/dl NEAR OR ABOVE OPTIMAL 130 - 159 mg/dl BORDERLINE HIGH 160 - 189 mg/dl HIGH >190 mg/dl VERY HIGH Performed By: #### LIPID, T4, CMP, TSH #### [facility] [address] [place] [address] Dr. Farhat McneilTriglyceride [Mass/Vol]274 mg/dLCritically high<=150The [facility] on above:Performed By: #### LIPID, T4, CMP, TSH #### [facility] [address] [place] [address] Dr. Farhat Parsons CALC54.8 mg/dLNoSumma HealthComjohn d. dingell veterans affairs [facility] on above: Performed By: #### LIPID, T4, CMP, TSH #### [facility] [address] [place] [address] Dr. Farhat McneilPROMaricarmen 14(COMP METB)on 96-45-8258Olrcdgk [Mass/Vol]3.8 g/dLNormal 3.5-5.0[facility] on above:Performed By: #### LIPID, T4, CMP, TSH #### [facility] [address] [place] [address] Dr. Farhat McneilAlbumin/Globulin [Mass ratio]1.0 {ratio}NormalUniversity Hospitals Health Systemment on above:Performed By: #### LIPID, T4, CMP, TSH #### [facility] [address] [address] [address] Farhat Mcgrath [Catalytic activity/Vol]102 U/DCmeqxp57-204Xrj [facility] HospitalComment on above:Performed By: #### LIPID, T4, CMP, TSH #### [facility] [address] [place] [address] Dr. Farhat HerediaT [Catalytic activity/Vol]46 U/LNormal9-52[facility] Comment on above:Performed By: #### LIPID, T4, CMP, TSH #### [facility] [address] [place] [address] Dr. Farhat McneilAnion gap [Moles/Vol]9.2 mmol/LNormalThe [facility] HospitalComment on above:Performed By: #### LIPID, T4, CMP, TSH #### [facility] [address] [place] [address] Dr. Farhat McneilAST [Catalytic activity/Vol]21 U/ZWhqiau28-58Vxq [facility] HospitalComment on above:Performed By: #### LIPID, T4, CMP, TSH #### [facility] [address] [place] [address] Dr. Farhat McneilBilirubin [Mass/Vol]0.3 mg/dLNormal0.2-1.3The [facility] Comment on above:Performed By: #### LIPID, T4, CMP, TSH #### [facility] [address] [place] [address] Dr. Farhat McneilCalcium [Mass/Vol]9.0 mg/dLNormal8.4-10.2[facility] Comment on above:Performed By: #### LIPID, T4, CMP, TSH #### [facility] [address] [place] [address] Dr. Farhat McneilChloride [Moles/Vol]103 mmol/OXcgjmy70-592GgzMarietta Osteopathic Clinic Comment on above:Performed By: #### LIPID, T4, CMP, TSH #### [facility] [address] [address] [address] Farhat McneilCO2 [Moles/Vol]30.7 mmol/LCritically high22.0-30.0The [facility] HospitalComment on above:Performed By: #### LIPID, T4, CMP, TSH #### [facility] [address] [address] [address] Farhta McneilCreatinine [Mass/Vol]0.75 mg/dLNormal0.52-1.04The [facility] HospitalComment on above:Performed By: #### LIPID, T4, CMP, TSH #### [facility] [address] [place] [address] Dr. Farhat LaraGFR-AF SURINAMESE>60Normal>=60The [facility] HospitalComment on above:Performed By: #### LIPID, T4, CMP, TSH #### [facility] [address] [place] [address] Dr. aFrhat LaraGFR-NON AF SURINAMESE>60Normal>=60The [facility] HospitalComment on above:Performed By: #### LIPID, T4, CMP, TSH #### [facility] [address] [place] [address] Dr. Farhat McneilGlobulin (S) [Mass/Vol]3.7 g/dLNormalThe [facility] HospitalComment on above:Performed By: #### LIPID, T4, CMP, TSH #### [facility] [address] [address] [address] Farhat McneilGlucose [Mass/Vol]126 mg/dLCritically yzcs18-865Hqm [facility] HospitalComment on above:Performed By: #### LIPID, T4, CMP, TSH #### [facility] [address] [place] [address] Dr. Farhat McneilPotassium [Moles/Vol]3.9 mmol/LNormal3.4-5.0The [facility] Comment on above:Performed By: #### LIPID, T4, CMP, TSH #### [facility] [address] [place] [address] Dr. Farhat McneilProtein [Mass/Vol]7.5 g/dLNormal6.1-8.2The [facility] Comment on above:Performed By: #### LIPID, T4, CMP, TSH #### [facility] [address] [place] [address] Dr. Farhat McneilSodium [Moles/Vol]139 mmol/VXtzzbc859-336Oqm [facility] Comment on above:Performed By: #### LIPID, T4, CMP, TSH #### [facility] [address] [place] [address] Dr. Farhat McneilUrea nitrogen [Mass/Vol]11.0 mg/dLNormal7.0-17.0The [facility] HospitalComment on above:Performed By: #### LIPID, T4, CMP, TSH #### [facility] [address] [place] [address] Dr. Farhat English nitrogen/Creatinine [Mass ratio]14.7 mg/mgNoSumma HealthComment on above:Performed By: #### LIPID, T4, CMP, TSH #### [facility] [address] [place] [address] Dr. Farhat Valenzuela 29-24-5735P3 [Mass/Vol]7.60 ug/dLNormal5.53-11.00The [facility] HospitalComment on above:Performed By: #### LIPID, T4, CMP, TSH #### [facility] [address] [place] [address] Dr. Farhat Carter 78-79-2144VVS5.278 uIU/mLNormal0.470-4.680The [facility] HospitalComment on above:Performed By: #### LIPID, T4, CMP, TSH #### [facility] [address] [place] [address] Dr. Farhat ALVAGalion Community HospitalComment on above: Result Comment: <0.34 UIU/ml HYPERTHYROID 0.34-5.60 UIU/ml EUTHYROID >5.60 UIU/ml HYPOTHYROIDPerformed By: #### LIPID, T4, CMP, TSH #### [facility] [address] [address] [address] [facility]ilBEAUM[facility] Shoulder w/o + w/ Lefton 12-58-8298ZMC Shoulder w/o + w/ Left CLINICAL HISTORY: [...] and signed by Mora Salguero on 10/21/2021 0956NoalNoatrium health carolinas medical centern [facility] SpecialistCoding Summary.on 91-26-4425Nghztl Summary. CD:[id number]:[id number]+PGhlYWQ+BM2WXKOrU15unHOisI3TY9dIQT7CGAXFCEQXGM8NNF1pi VH9SPljX7OrbcLr [file] bGFw (more content not included)...NormalSelect Medical Specialty Hospital - CincinnatiConsent for Treatmenton 09-72-1581Obvbiyd for Treatment [id number]#1.00CD:127NormalSelect Medical [facility] [place] Bone Scan 3 Phaseon 01-99-7147KQ Bone Scan 3 PhaseExam Date/Time: 09/20/2021 12:39 EST Reason for Exam: Pain in left shoulder Report IMPRESSION: NONSPECIFIC DELAYED RADIOTRACER ACCUMULATION TO THE LEFT HUMERAL HEAD, NOTED. FURTHER EVALUATION WITH A LEFT SHOULDER MRI IS SUGGESTED, PREFERABLY WITH CONTRAST. EXAM: PA Bone Scan 3 Phase DATE: 09/20/2021 CLINICAL [...] Tc99m MDP) 21.3 Imaging Post Administration (hrs): 3NoMagruder HospitalPhysian Orderon 75-74-6148Jxbnhujcu Order [id number]#1.00CD:127Corey HospitalMR Shoulder w/o Lefton 63-40-8316WLG Shoulder w/o LeftHISTORY: Pain and decreased range of motion. COMPARISON: Shoulder radiographs 08/07/2021 TECHNIQUE: Multiplanar multisequence MRI was performed of the left shoulder without contrast. FINDINGS: Mild degenerative changes of the acromioclavicular joint without undersurface osteophyte formation. The acromion is curved. Coracoclavicular ligament is intact. No subacromial/subdeltoid bursal fluid or edema. The supraspinous, infraspinatus, [...] and signed by Jackson Ma on 08/28/2021 0949NormalNortcopper springs east hospitaln Hospital For Special CareFLUORO FOR SURGICAL PROCEDURESon 39-54-5473GHZELK FOR SURGICAL PROCEDURESFLUORO FOR SURGICAL PROCEDURES : 09/11/2020 3:53 PM CLINICAL HISTORY: Lumbar Diskectomy . COMPARISON: None available. Intraoperative fluoroscopy was provided for Dr. Santosh gonzalez. A total of 1 seconds of fluoroscopy was used, with 4 fluoroscopic stills saved. No diagnostic images were obtained. Please see Dr. Rios surgical notes for completeness. Interpreted by: Phillip Corral MD Signed by: Phillip Corral MD 09/11/20 Final resultNoNorth Suburban [facility], [facility] Incoming Radiant Results From Luv[employer]cribe/Pacs - 09/11/2020 5:09 PM EST FLUORO FOR SURGICAL PROCEDURES : 09/11/2020 3:53 PM CLINICAL HISTORY: Lumbar Diskectomy . COMPARISON: None available. Intraoperative fluoroscopy was provided for Dr. Santosh gonzalez. A total of 1 seconds of fluoroscopy was used, with 4 fluoroscopic stills saved. No diagnostic images were obtained. Please see Dr. Rios surgical notes for completeness. [facility], NYFLUORO FOR SURGICAL PROCEDURES : 09/11/2020 3:53 PM CLINICAL HISTORY: Lumbar Diskectomy . COMPARISON: None available. Intraoperative fluoroscopy was provided for Dr. Santosh gonzalez. A total of 1 seconds of fluoroscopy was used, with 4 fluoroscopic stills saved. No diagnostic images were obtained. Please see Dr. Rios surgical notes for completeness.[facility], KYPOCT Glucoseon 30-98-2633Lfpnhas [Mass/Vol]145 mg/dLCritically tuzu78-413 [facility] HospitalComment on above:Performed By: #### PGLU #### [facility] [address] [place] [address] AML Performed [facility] ParkerComment on above:Performed By: #### PGLU #### [facility] [address] [place] [address] Ynkizwh [Mass/Vol]145 mg/pSWhvg35 - 115 mg/dlLima Memorial Hospital, [place] Interpretation and review of laboratory resultsAbFisher-Titus Medical Center, [place] Performed onChildren[facility], KYGlucose [Mass/Vol]131 mg/dLCritically lxua55-149BooqsLongmont United HospitalComment on above:Performed By: #### PGLU #### [facility] [address] [place] [address] ZYF Performed [facility] ParkerComment on above:Performed By: #### PGLU #### [facility] [address] [place] [address] Qyrannz [Mass/Vol]131 mg/xTLlko22 - 115 mg/dlLima Memorial Hospital, [place] Interpretation and review of laboratory resultsAbFisher-Titus [facility], [place] Performed [facility], KYSurgical Specimenon 78-32-6982Qlscfisb SpecimenKettering Health [facility] [address] [place] [address] FINAL SURGICAL PATHOLOGY REPORT Patient Name: JORDY PHILIP Accession No: [id number] Age Sex: 1960 Location: [facility] [id number] Account No: [id number] Collected: 09/11/2020 Med Rec No: [id number] Received: 09/12/2020 Attend Phys: FERNANDEZ RIOS Completed: 09/13/2020 Perform Phys: FERNANDEZ RIOS FINAL DIAGNOSIS: DISC- INTERVERTEBRAL DISC MATERIAL [...] one cassette after brief decalcification. ALIFA/ALIFA CPT: 41479 X1 32635 X1 VENKATESH COTTON M.D. 09/13/2020 Electronically signed out by [address] [place], [place] [address]Comment on above:Performed By: #### BRANDEN #### [facility] [address] [place] [address] FA CHEST PORTABLEon 57-95-2584FEN Coag (Bld) [Relative time]NO ACUTE ACTIVE CARDIOPULMONARY PROCESSLima Memorial Hospital, KYEXAMINATION: CHEST PORTABLE VIEW CLINICAL HISTORY: Back pain COMPARISONS: None FINDINGS: Single views of the chest is submitted. The cardiac silhouette is enlarged. Pulmonary vascular unremarkable. Right sided trachea. No focal infiltrates. No Pneumothoraces.[facility] [place], [place]Ed[place], [place] Incoming Radiant Results From [facility] - 09/11/2020 7:58 AM EST EXAMINATION: CHEST PORTABLE VIEW CLINICAL HISTORY: Back pain COMPARISONS: None FINDINGS: Single views of the chest is submitted. The cardiac silhouette is enlarged. Pulmonary vascular unremarkable. Right sided trachea. No focal infiltrates. No Pneumothoraces. IMPRESSION: NO ACUTE ACTIVE CARDIOPULMONARY PROCESSLima Memorial Hospital, KYXR LUMBAR SPINE (MIN 4 VIEWS)on 33-15-4251Woq, po Incoming Radiant Results From [facility] - 09/11/2020 10:22 AM EST EXAMINATION: XR [...] show degenerative changes.. IMPRESSION NO ACUTE FRACTURE. [facility] [place], KYEXAMINATION: XR LUMBAR SPINE (MIN 4 VIEWS) CLINICAL [...] joints show degenerative changes.. IMPRESSION NO ACUTE FRACTURE.[facility] Memorial HospitalFABIOLAAPTCarondelet St. [facility]'S Hospital 96-87-8377fLNK Coag (Bld) [Time]30.5 s [facility] HospitalFABIOLAComment on above:Effective 07/25/2020: Heparin Therapeutic Range: 64.0 98.0 seconds. CBC Auto Differentialon 50-66-2728Pvtzodkys (Bld) [#/Vol]0.1 10*3/uL0 - 0.2 K/uL [facility], FABIOLABasophils/100 WBC (Bld)0.7 %[facility], NYEosinophils (Bld) [#/Vol]0.0 10*3/uL0 - 0.7 K/uLLima Memorial Hospital, FABIOLAEosinophils/100 WBC (Bld)0.2 %[facility], NYErythrocyte distribution width (RBC) [Ratio]13.2 % 11.5 - 14.5 %[facility], FABIOLAHematocrit (Bld) [Volume fraction]41.0 %37 - 47 %[facility], FABIOLAHemoglobin (Bld) [Mass/Vol]14.2 g/dL12 - 16 g/dLLima Memorial Hospital, FABIOLAInterpretation and review of laboratory resultsAbnormalLima Memorial Hospital, FABIOLALymphocytes (Bld) [#/Vol]2.9 10*3/uL1 - 4.8 K/uLLima Memorial Hospital, FABIOLALymphocytes/100 WBC (Bld)25.0 %[facility], FABIOLAMCH (RBC) [Entitic mass] 32.9 slUxkp25 - 31.3 pgLima Memorial Hospital, FABIOLAMCHC (RBC) [Mass/Vol]34.6 %33 - 37 % [facility], FABIOLAMCV (RBC) [Entitic vol]95.0 fL82 - 100 fLLima Memorial Hospital, FABIOLAMonocytes (Bld) [#/Vol]0.4 10*3/uL0.2 - 0.8 K/[facility], [place] Monocytes/100 WBC (Bld)3.8 %[facility], KYNeutrophils Absolute8.2 K/uLHigh 1.4 - 6.5 K/[facility], KYNeutrophils/100 WBC (Bld)70.3 %[facility], KYPlatelets (Bld) [#/Vol]196 10*3/uL130 - 400 K/[facility], KYRBC (Bld) [#/Vol]4.32 10*6/uLLima Memorial Hospital, KYWBC (Bld) [#/Vol]11.6 10*3/uLHigh 4.8 - 10.8 K/[facility], KYCBC With Platelet and Differentialon 33-69-0604Alfpvtges (Bld) [#/Vol]0.1 10*3/uLNormal0.0-0.2MEstes Park Medical CenterComment on above:Performed By: #### CBCWD #### [facility] [address] [place] [address] Cfogqvgat/100 WBC (Bld)0.7 %[facility] Comment on above:Performed By: #### CBCWD #### [facility] [address] [place] [address] Gcsgyvgfwol (Bld) [#/Vol]0.0 10*3/uLNormal0.0-0.7[facility] HospitalComment on above:Performed By: #### CBCWD #### [facility] [address] [place] [address] Eihzyslivab/100 WBC (Bld)0.2 %[facility] Comment on above:Performed By: #### CBCWD #### [facility] [address] [place] [address] Ttnriagumds distribution width (RBC) [Ratio]13.2 %Mhkinl08.5-14.5 [facility] HospitalComment on above:Performed By: #### CBCWD #### [facility] [address] [place] [address] Bmwzzsaynu (Bld) [Volume fraction]41.0 %Kdyaue10.0-47.0[facility] HospitalComment on above:Performed By: #### CBCWD #### [facility] [address] [place] [address] Wenbhktsjx (Bld) [Mass/Vol]14.2 g/mFHkvpae84.0-16.0[facility] HospitalComment on above:Performed By: #### CBCWD #### [facility] [address] [place] [address] Whvxqnvfvsv (Bld) [#/Vol]2.9 10*3/uLNormal1.0-4.8[facility] HospitalComment on above:Performed By: #### CBCWD #### [facility] [address] [place] [address] Kdpkqzrpuxs/100 WBC (Bld)25.0 %NormalLongmont United Hospital Comment on above:Performed By: #### CBCWD #### [facility] [address] [place] [address] QIV (RBC) [Entitic mass]32.9 pgCritically high27.0-31.3MEstes Park Medical CenterComment on above:Performed By: #### CBCWD #### [facility] [address] [place] [address] NJTC (RBC) [Mass/Vol]34.6 %Jlcoej84.0-37.0[facility] HospitalComment on above:Performed By: #### CBCWD #### [facility] [address] [place] [address] XAO (RBC) [Entitic vol]95.0 bBCkbxrc10.0-100.0[facility] HospitalComment on above:Performed By: #### CBCWD #### [facility] [address] [place] [address] Oeqfqtpxx (Bld) [#/Vol]0.4 10*3/uLNormal0.2-0.8[facility] HospitalComment on above:Performed By: #### CBCWD #### [facility] [address] [place] [address] Yqgjqxkav/100 WBC (Bld)3.8 %[facility] Comment on above:Performed By: #### CBCWD #### [facility] [address] [place] [address] Lzjmqzhwbyo (Bld) [#/Vol]8.2 10*3/uLCritically high1.4-6.5[facility] HospitalComment on above:Performed By: #### CBCWD #### [facility] [address] [place] [address] Govyfctqqks/100 WBC (Bld)70.3 %[facility] Comment on above:Performed By: #### CBCWD #### [facility] [address] [place] [address] Kyvmghtap (Bld) [#/Vol]196 10*3/xJDvofmz820-372RsxpcLongmont United HospitalComment on above:Performed By: #### CBCWD #### [facility] [address] [place] [address] XPJ (Bld) [#/Vol]4.32 10*6/uLNormal4.20-5.40[facility] HospitalComment on above:Performed By: #### CBCWD #### [facility] [address] [place] [address] DWQ (Bld) [#/Vol]11.6 10*3/uLCritically high4.8-10.8[facility] HospitalComment on above:Performed By: #### CBCWD #### [facility] [address] [place] [address] QVUOZ-19on 45-47-7649WESWZ-19, NAATNot DetectedNormalNot Longs Peak HospitalComment on above:Result Comment: Rapid NAAT: Negative results should be treated [...] authorized laboratories. Fact sheet for Healthcare Providers: https://www.fda.gov/media/123639/download Fact sheet for Patients: https://www.fda.gov/media/125587/download METHODOLOGY: Isothermal Nucleic Acid AmplificationPerformed By: #### COVPC #### [facility] [address] [facility] [address] IHZE-CoV-2, NAATNot DetectedNot [place], KYComment on above:Rapid NAAT: Negative results should be treated as [...] authorized laboratories. Fact sheet for Healthcare Providers: https://www.fda.gov/media/607273/download Fact sheet for Patients: https://www.fda.gov/media/772935/download METHODOLOGY: Isothermal Nucleic Acid Amplification Comprehensive Metabolic Panelon 33-87-7045Mychtyb [Mass/Vol]3.9 g/dLNormal 3.5-4.6MEstes Park Medical CenterComment on above:Performed By: #### CMP #### [facility] [address] [facility] [address] FKA [Catalytic activity/Vol]76 U/KTidfml20-719AuigoLongmont United HospitalComment on above:Performed By: #### CMP #### [facility] [address] [facility] [address] TCM [Catalytic activity/Vol]22 U/LNormal0-33[facility] HospitalComment on above:Result Comment: Specimen hemolysis has exceeded the interference as defined by Shikha. Result may be affected. Suggest recollection if clinically indicated.Performed By: #### CMP #### [facility] [address] [place] [address] Conww gap [Moles/Vol]9 mmol/LNormal9-15[facility] Comment on above:Performed By: #### CMP #### [facility] [address] [place] [address] ZXZ [Catalytic activity/Vol]18 U/LNormal0-35[facility] HospitalComment on above:Result Comment: Specimen hemolysis has exceeded the interference as defined by Shikha. Value may be falsely increased. Suggest recollection if clinically indicated.Performed By: #### CMP #### [facility] [address] [place] [address] Qvhbaefxc [Mass/Vol]0.3 mg/dLNormal0.2-0.7[facility] HospitalComment on above:Performed By: #### CMP #### [facility] [address] [place] [address] Yrbypbb [Mass/Vol]9.2 mg/dLNormal8.5-9.9[facility] HospitalComment on above:Performed By: #### CMP #### [facility] [address] [place] [address] Qxbujhdq [Moles/Vol]103 mmol/YPtoqnv57-740JhuddLongmont United HospitalComment on above:Performed By: #### CMP #### [facility] [address] [place] [address] FG2 [Moles/Vol]28 mmol/JVedkgo58-96RufgiLongmont United Hospital Comment on above:Performed By: #### CMP #### [facility] [address] [place] [address] Xsehihhcss [Mass/Vol]0.67 mg/dLNormal0.50-0.90[facility] HospitalComment on above:Performed By: #### CMP #### [facility] [address] [place] [address] DBJ/1.73 sq M predicted among blacks MDRD (S/P/Bld) [Vol rate/Area] mL/min/{1.73_m2}Normal>60[facility] HospitalComment on above:Result Comment: >60 mL/min/1.73m2 EGFR, calc. for ages 18 and older using the MDRD formula (not corrected for weight), is valid for stable renal function.Performed By: #### CMP #### [facility] [address] [place] [address] HXU/1.73 sq M.predicted MDRD (S/P/Bld) [Vol rate/Area] mL/min/{1.73_m2}Normal>60[facility] HospitalComment on above:Result Comment: >60 mL/min/1.73m2 EGFR, calc. for ages 18 and older using the MDRD formula (not corrected for weight), is valid for stable renal function.Performed By: #### CMP #### [facility] [address] [place] [address] Pfvzdwuh (S) [Mass/Vol]2.4 g/dLNormal2.3-3.5[facility] HospitalComment on above:Performed By: #### CMP #### [facility] [address] [place] [address] Gahhygt [Mass/Vol]189 mg/dLCritically tqci74-40EqqywEstes Park Medical CenterComment on above:Performed By: #### CMP #### [facility] [address] [place] [address] Qkkabwvll [Moles/Vol]4.2 mmol/LNormal3.4-4.9[facility] HospitalComment on above:Result Comment: Specimen hemolysis has exceeded the interference as defined by Shikha. Value may be falsely increased. Suggest recollection if clinically indicated.Performed By: #### CMP #### [facility] [address] [place] [address] Igdngun [Mass/Vol]6.3 g/dLNormal6.3-8.0[facility] Comment on above:Performed By: #### CMP #### [facility] [address] [place] [address] Gewqrb [Moles/Vol]140 mmol/CHsbfes016-265SfyvnLongmont United HospitalComment on above:Performed By: #### CMP #### [facility] [address] [place] [address] Ctsl nitrogen [Mass/Vol]17 mg/dLNormal6-20[facility] HospitalComment on above:Performed By: #### CMP #### [facility] [address] [place] [address] Ccnwlqx [Mass/Vol]3.9 g/dL3.5 - 4.6 g/dLFostoria City Hospital Health- [place], KYALP [Catalytic activity/Vol]76 U/L40 - 130 U/LMercy Health- [place], KYALT [Catalytic activity/Vol]22 U/L0 - 33 U/LMercy Health- [place], KYComment on above:Specimen hemolysis has exceeded the interference as defined by Shikha. Result may be affected. Suggest recollection if clinically indicated. Anion gap [Moles/Vol]9 mmol/LMercy Health- [place], KYAST [Catalytic activity/Vol]18 U/L0 - 35 U/LMercy Health- [place], KYComment on above:Specimen hemolysis has exceeded the interference as defined by Shikha. Value may be falsely increased. Suggest recollection if clinically indicated. Bilirubin Ql (U)0.3 mg/dL0.2 - 0.7 mg/dLMercy Health- [place], KYCalcium [Mass/Vol] 9.2 mg/dL8.5 - 9.9 mg/dLMercy Health- [place], KYChloride [Moles/Vol]103 mmol/LMercy Health- [place], KYCO2 [Moles/Vol]28 mmol/LMercy Health- [place], KYCreatinine [Mass/Vol] 0.67 mg/dL0.5 - 0.9 mg/dLMercy Health- [place], KYGFR >60.0>60[facility]- [place], KYComment on above:>60 mL/min/1.73m2 EGFR, calc. for ages 18 and older using the MDRD formula (not corrected for weight), is valid for stable renal function. GFR Non->60.0>60Mercy [facility], KYComment on above:>60 mL/min/1.73m2 EGFR, calc. for ages 18 and older using the MDRD formula (not corrected for weight), is valid for stable renal function. Globulin (S) [Mass/Vol]2.4 g/dL2.3 - 3.5 g/dLLima Memorial Hospital, KYGlucose [Mass/Vol]189 mg/aYIfqa59 - 99 mg/dLLima Memorial Hospital, KYInterpretation and review of laboratory resultsAbnormalLima Memorial Hospital, KYPotassium [Moles/Vol]4.2 mmol/LMuniversity hospitals lake west medical centery [facility], KYComment on above:Specimen hemolysis has exceeded the interference as defined by Shikha. Value may be falsely increased. Suggest recollection if clinically indicated. Protein [Mass/Vol]6.3 g/dL6.3 - 8 g/dLLima Memorial Hospital, KYSodium [Moles/Vol]140 mmol/LMRegency Hospital Company, KYUrea nitrogen [Mass/Vol]17 mg/dL6 - 20 mg/dLLima Memorial Hospital, KYMRI LUMBAR SPINE WO CONTRASTon 63-67-2811FGE LUMBAR SPINE WO CONTRASTMRI lumbar spine HISTORY: Low back and right [...] levels the lowest lumbar-type disc will be referredto as L5-S1. Conus medullaris is unremarkable. Vertebral [...] is nonspecific. This could represent a hematopoietic marrowrest. Similar 6 mm central L3 vertebral signal [...] causing subtle mass effect on the posterior lateralaspect of the thecal sac. Overall no significant [...] sac. Subtle foraminal bulging of the disc bilaterally.On the right there is associated moderate to severe foraminal narrowing due to superior facet joint spurring and ligamentous thickening. No significantforaminal narrowing on the left. Moderate-marked, left greater than right, bilateral facet arthrosis with less than 5 mm cyst arising from the very posterior aspect of the facet joint adjacent to the posterior paraspinal muscles. L5-S1 (L5): Disc space height and degree of hydration relatively well- maintained. Loss of the posterior disc concavity likely [...] Signed by: Nando Dixon MD 09/10/20 Final resultNormalEating Recovery Center a Behavioral Hospital for Children and Adolescentsi, [facility] Incoming Radiant Results From [employer] - 09/10/2020 4:27 PM EST STUDY IS REVIEWEDWITH THE REFERRING NEUROSURGEON DR. FERNANDEZ RIOS AT 1552 HOURS ON 09/10/2020. L4-5 foraminal disc bulge is more pronounced on the right where there is a small superimposed superior protrusion of the disc on axial image #28 and sagittal image #5 contacting the anterior inferiormargin of the exiting right L4 nerve root. Posterior margin of the nerve root is contacted by the superior facet joint spurring and/or ligamentous thickening. Lima Memorial HospitalFABIOLASTUDY IS REVIEWED WITH THE REFERRING NEUROSURGEON DR. FERNANDEZ RIOS AT 1552 HOURS ON 09/10/2020. L4-5 foraminal disc bulge is more pronounced on the right where there is a small superimposed superior protrusion of the disc on axial image #28 and sagittal image #5 contacting the anterior inferior margin ofthe exiting right L4 nerve root. Posterior margin of the nerve root is contacted by the superior facet joint spurring and/or ligamentous thickening. [employer], KYPartial Thromboplastin Timeon 49-22-4910jPQS Coag (Bld) [Time]30.5 sUhvwgl26.4-36.8[facility] HospitalComment on above:Result Comment: Effective 07/25/2020: Heparin Therapeutic Range: 64.0 ? 98.0 seconds.Performed By: #### PTT #### [facility] [address] [place] [address] Btmzhurtwco Timeon 59-51-2245PFQ Coag (PPP) [Relative time]1.1 {INR} NormalLongmont United HospitalComment on above:Performed By: #### PT #### [facility] [address] [place] [address] FW Coag (PPP) [Time]13.9 nEkrppd09.3-14.9[facility] HospitalComment on above:Performed By: #### PT #### [facility] [address] [place] [address] Hhvdjzs-INRon 50-62-6345GJG Coag (PPP) [Relative time]1.1 {INR}[facility]- [place], KYPT Coag (PPP) [Time]13.9 sMerc Health- [place], KYXR CHEST PORTABLEon 67-76-6558IV CHEST PORTABLEEXAMINATION: CHEST PORTABLE VIEW CLINICAL HISTORY: Back pain COMPARISONS: None FINDINGS: Single views of the chest is submitted. The cardiac silhouette is enlarged. Pulmonary vascular unremarkable. Right sided trachea. No focal infiltrates. No Pneumothoraces. IMPRESSION: NO ACUTE ACTIVE CARDIOPULMONARY PROCESS Interpreted by: Phillip Corral MD Signed by: Phillip Corral MD 09/11/20 Final resultNoSt. Anthony Summit Medical CenterXR LUMBAR SPINE (MIN 4 VIEWS)on 55-86-2946NY LUMBAR SPINE (MIN 4 VIEWS)EXAMINATION: XR LUMBAR SPINE (MIN 4 VIEWS) CLINICAL [...] Signed by: Phillip Corral MD 09/11/20 Final resultNoSt. Anthony Summit Medical Center Vital Signs Date TimeVital SignValuePerforming HmivotroyZilnogjs25-97-4337 09:24-0400Body .56 cmLisa Aichholz [employer]INK SL[employer]ER-C Work Phone: [phone] [place], [place] [address]10-21-2025 09:24-0400 Body mass index (BMI) [Ratio]30.9 kg/m2Lisa Aichholz [employer]-C Work Phone: [phone]10-21-2025 09:24-0400 Body oagnwtavnog79.5 [degF]Mela Aichholz [employer]-C Work Phone: [phone]10-21-2025 09:24-0400 Body uazdnw57.76 kgLisa Aichholz [employer]-C Work Phone: [phone]10-21-2025 09:24-0400 Diastolic blood mm[Hg]Mela Aichholz [employer]-C Work Phone: [phone]10-21-2025 09:24-0400 Heart rate72 /minLisa Aichholz MINK [employer]-C Work Phone: [phone]10-21-2025 09:24-0400 Respiratory rate20 /minLisa Aichholz [employer]-C Work Phone: [phone]10-21-2025 09:24-0400 SaO2% (BldA) [Mass fraction]94 %Mela Aichholz [employer]-C Work Phone: [phone] [place], [place] [address]10-21-2025 09:24-0400 Systolic blood qhveefyv415 mm[Hg]Mela Aichholz MINK [employer]-C Work Phone: [phone]08-19-2025 09:04-0400 Body kbyxci468.6 cmPaul Laffay DO Work Phone: [facility] HospitalHjtnvkywul22-80-7702 09:04-0400Body mass index (BMI) [Ratio]30.55 kg/m2Paul Laffay DO Work Phone: [facility] HospitalQwnsajypxu62-39-6026 09:04-0400Body .74 kgPaul Laffay DO Work Phone: [facility] HospitalHhtdryqvtb83-32-9999 09:18-0400Body mass index (BMI) [Ratio]30.69 kg/m2Mela Zuletaleilani MINK SLICER Work Phone: [facility] HospitalTppsefxums01-93-9376 09:18-0400Body xrzotg15.1 kg Mela Zuletaleilani MINK SLICER Work Phone: [facility] HospitalKrtclksnet93-78-5711 09:18-0400Diastolic blood widctcjv86 mm[Hg]Mela Zuletaleilani MINK SLICER Work Phone: [facility] HospitalFkoinfvozj40-34-6679 09:18-0400Heart rate65 /min Mela Zuletaleilani MINK SLICER Work Phone: [facility] HospitalLvvasdgupn75-94-3855 09:18-0400Respiratory rate18 /minMela Zuletaleilani MINK SLICER Work Phone: [facility] HospitalUyqwwspamy06-36-1395 09:18-3883SaA9% (BldA) [Mass fraction]96 %Mela Zuletaleilani MINK SLICER Work Phone: [facility] HospitalRjktoasthf65-65-9549 09:18-0400Systolic blood owdvumdx089 mm[Hg]Mela Zuletaleilani MINK SLICER Work Phone: [facility] HospitalZhcueeojix21-18-0880 09:00-0400Body sjdson732.6 cmPaul Laffay DO Work Phone: [place] [address]Xhwzlztwhm64-49-0832 09:00-0400Body mass index (BMI) [Ratio]30.38 kg/m2Paul Laffay DO Work Phone: [place] [address]Zrairagefu80-62-8234 09:00-0400Body haledv77.29 kgPaul Laffay DO Work Phone: [place] [address]Jukbnmrsnp05-14-9229 09:00-0400Diastolic blood uyywizyk42 mm[Hg]Alex Justoarina DO Work Phone: [phone] Lang StreetNmuzfaxmgg88-88-1521 09:00-0400Systolic blood cnycphcw912 mm[Hg]Alex Teran DO Work Phone: [facility] HospitalKavkzhrkzv70-03-7402 16:02-0400Body mass index (BMI) [Ratio]30.24 kg/m2Mela Zuletaleilani MINK SLICER Work Phone: noSaint [facility]–Barry RoadBngtqjhixo79-86-9140 16:02-0400Body temperature 98.49 [degF]Mela Floresmeliton MINK SLICER Work Phone: [facility] HospitalSjaiipejnu21-73-2889 16:02-0400Body .92 kgMela Zuletaleilani MINK SLICER Work Phone: [facility] HospitalAfroikccyu69-10-0610 16:02-0400Diastolic blood fufvfltz20 mm[Hg]Mela Zuletaleilani MINK SLICER Work Phone: [facility] HospitalObawkmeuhr64-70-5047 16:02-0400Heart rate83 /min Melamarivel Zuletamartitaz MINK SLICER Work Phone: [facility] HospitalUgnktnbpwh81-64-3972 16:02-0400Respiratory rate18 /minLisa Zuletaleilani MINK SLICER Work Phone: [facility] HospitalRdhthlztwu20-03-6714 16:02-4890FkB0% (BldA) [Mass fraction]96 %Mela Zuletaleilani MINK SLICER Work Phone: [facility] HospitalPtkimznrbx79-53-0763 16:02-0400Systolic blood sxyhqyew185 mm[Hg]Mela Markpalakmartitaz MINK SLICER Work Phone: [facility] HospitalTmdoboujsv00-16-3337 12:55-0400Body mass index (BMI) [Ratio]30.04 kg/y8NsdazJuno Taylor MD Work Phone: noSaint [facility]–Barry RoadEkvrskvcfz29-72-2930 12:55-0400Body ymkrmp29.38 kgJuno Taylor MD Work Phone: noSaint [facility]–Barry RoadLgfetrmgdr55-79-4151 12:55-0400Diastolic blood cvhlcity62 mm[Hg]Juno Taylor MD Work Phone: noSaint [facility]–Barry RoadAzvqeboiph93-69-0775 12:55-0400Systolic blood agtfexxj625 mm[Hg]Juno Taylor MD Work Phone: noSaint [facility]–Barry RoadNoyhipidud60-48-1900 09:27-0400Body rdbjir795.6 Catracho Abimbola MINK SLICER Work Phone: [facility] HospitalDzuonpxoax91-89-7457 09:27-0400Body mass index (BMI) [Ratio]30.55 kg/m2Li Abimbola MINK SLICER Work Phone: [facility] HospitalInjqfqvtcl81-08-2342 09:27-0400Body temperature 96.6 [degF]Mela Abimbola MINK SLICER Work Phone: [facility] HospitalPlomrxnlkx29-89-1447 09:27-0400Body yxbsxe64.74 kgKeena Abimbola MINK SLICER Work Phone: [facility] HospitalLblwusuveq57-83-3070 09:27-0400Diastolic blood alrnpilo10 mm[Hg]Mela Abimbola MINK SLICER Work Phone: [facility] HospitalQthdkcpexb03-83-8609 09:27-0400Heart rate81 /min Mela Abimbola MINK SLICER Work Phone: [facility] HospitalIntajtloae39-82-4839 09:27-0400Respiratory rate20 /minLi Abimbola MINK SLICER Work Phone: [facility] HospitalGohlgiqgbr81-76-9852 09:27-1310AmU7% (BldA) [Mass fraction]98 %Mela Abimbola MINK [employer]ER Work Phone: [place] [address]Azfzrcxitz77-40-5728 09:27-0400Systolic blood smetgiqb214 mm[Hg]Mela Abimbola MINK SLICER Work Phone: [facility] HospitalQhbxrkdfym79-03-0675 09:37-0500Diastolic blood iioenanl18 mm[Hg]Mela Abimbola MINK SLICER Work Phone: [facility] HospitalWjfzrnkcge29-71-6663 09:37-0500Systolic blood blagyrfl929 mm[Hg]Mela Daily MINK SLICER Work Phone: [facility] HospitalPzqfcempyx31-43-9526 08:58-0500Body .6 Catracho Daily MINK SLICER Work Phone: [facility] HospitalEotzxgtpzq80-67-8136 08:58-0500Body mass index (BMI) [Ratio]30.31 kg/m2Keenasa Mengz MINK SLICER Work Phone: [facility] HospitalEvyuxpajbi67-04-9544 08:58-0500Body temperature 98.49 [degF]Mela Daily MINK SLICER Work Phone: [facility] HospitalEzftgvyvda02-37-4320 08:58-0500Body .11 kgMela Fanz MINK SLICER Work Phone: [facility] HospitalInurvqytty87-26-9508 08:58-0500Heart rate69 /min Mela Daily M[employer]ICER Work Phone: [facility] HospitalPmzkawrgro65-71-4437 08:58-0500Respiratory rate18 /minLisa Daily MINK SLICER Work Phone: [facility] HospitalVwjdlujulu70-39-3573 08:58-0098TtX5% (BldA) [Mass fraction]96 %Mela Daily MINK SLICER Work Phone: noSaint [facility]–Barry RoadQkzculhlnv10-08-9585 09:03-0400Body passhn858.6 Catracho Daily MINK SLICER Work Phone: [facility] HospitalBzumatqley78-02-0967 09:03-0400Body mass index (BMI) [Ratio]29.39 kg/m2Mela Fanz MINK SLICER Work Phone: [facility] HospitalIsvpynsrhy15-84-6311 09:03-0400Body temperature 97.81 [degF]Mela aDily MINK SLICER Work Phone: [facility] HospitalYdzwsngxcl10-80-9545 09:03-0400Body qxyaeg37.66 kgMela Daily MINK SLICER Work Phone: [facility] HospitalDuelgxmsne53-76-3920 09:03-0400Diastolic blood mm[Hg]Mela Abimbola MINK SLICER Work Phone: [facility] HospitalFzgyxzwomq76-14-3484 09:03-0400Heart rate72 /min Mela Abimbola MINK SLICER Work Phone: [facility] HospitalDpunhyrgvy38-48-1364 09:03-0400Respiratory rate18 /minMela Daily MINK SLICER Work Phone: [facility] HospitalSzukflzvbr89-48-5818 09:03-7056CtW9% (BldA) [Mass fraction]97 %Mela Daily M[employer] SLICER Work Phone: [facility] HospitalJbghzajala37-88-7557 09:03-0400Systolic blood rgfiuzie041 mm[Hg]Mela Abimbola MINK SLICER Work Phone: [facility] HospitalIcbtnuadgn48-02-1125 17:30-0500BP Yryjskrzc98 mm[Hg] ZeroVMTHE REHABILITATION [facility], YZ33-42-1958 17:30-0500BP Gbzulbhl799 mm[Hg] BrowsyTHE [facility]HABILITATION [facility], XH80-53-9373 17:30-0500Pulse (Heart Rate)60 /min Planearth NETC[facility] Clinic [facility] KuponjoTHE [facility]ABIL[facility]ATION [facility], GJ84-34-4964 17:30-0500Pulse Figvxgnk70 % [employer] KuponjoTHE [facility] [place], [place] 09-11-2020 17:30-0500Respiratory Rate19 /min [employer]earth NETCleveland Clinic Mer[facility] KuponjoTHE [facility], VP30-30-6284 16:50-0500Body Glarexfgjwt63.01 [degF] [employer] KuponjoTHE [facility]HAB[facility] [place], FV51-73-2962 10:41-0500BMI (Body Mass Index)27.46 kg/m2 ZeroVMTHE REHABILITATION [facility], ME39-71-6238 10:41-0500Body satkbx76.58 kg [employer] NETC[facility] Clinic [facility] KuponjoTHE [facility] [place], ZA46-82-1678 10:41-0500 Ekxzzl443.6 cm ZeroVMTHE REHABILITATION [facility] [place], [place] Encounters Encounter DateEncounter TypeCare ProviderFacilityStart: 07-11-2025 End: 12-59-9442kkrwmviqpcGihi J Aichholz MINK SLICER-C Work Phone: -[facility] ClydeStart: 07-11-2025 End: 00-01-5870Lcwylzq encounter procedureKeena Ortega Daily MINK SLICER-C-[facility] Work Phone: Start: 05-09-2025 End: 29-17-9084Zpohqe follow up visit related to original pxMosesmaine Teran DO Work Phone: [facility] Surgical AssociatesComment on above:Adenomatous polyp of transverse colon (Primary Dx); Family history of colon cancerStart: 05-09-2025 End: 78-94-4623ijdjhyszpeSTCA C SUNDEEPEUGENIAYNot AvailableStart: 04-27-2025 End: 11-68-1981tmczcwpuwnMogn [facility] Work Phone: Start: 04-27-2025 End: 06-34-6450Jewmlytx ReferredCamaine Teran DO-Lab [facility] Work Phone: Start: 04-10-2025 End: 58-65-2026Fdyiks flowsheetMela Daily MINK SLICER Work Phone: [facility] CWM FMStart: 04-10-2025 End: 41-92-1460Plmlgu flowsheetMela Daily MINK SLICER Work Phone: [facility] FMStart: 04-10-2025 End: 54-87-3656Onhudn outpatient visit 25 minutesMela Daily MINK SLICER Work Phone: [facility] CWM FMComment on above:Essential hypertension (Primary Dx); Left foot pain; Type 2 diabetes mellitus without complication, without long-term current use of insulin (HCC); Obesity (BMI 30-39.9); Environmental and seasonal allergiesStart: 04-10-2025 End: 92-98-6778uviwzohcxhHADW AICHHOLZNot AvailableStart: 04-04-2025 End: 62-59-0830Vhjhqf outpatient visit 15 minutesAlex Teran DO Work Phone: [facility] GENSComment on above:Personal history of other colon polyps (Primary Dx)Start: 04-04-2025 End: 87-62-4867bnckaqzrjwZYSG C SUNDEEPEUGENIANICOLÁSot AvailableStart: 03-16-2025 End: 22-45-5652Spvwasqjc Result EncounterLisa Fanwilly MINK SLICER Work Phone: noms External Department UnsolicitedStart: 03-16-2025 End: 92-15-7693Ymjmbxocr Result EncounterLisa Zuletaholz MINK SLICER Work Phone: [facility] External Department UnsolicitedStart: 03-15-2025 End: 33-41-8542Tkheim outpatient visit 15 minutesLisa Zuletaleilani MINK SLICER Work Phone: [facility] CWM FMComment on above:Left foot pain (Primary Dx); Essential hypertension ; Obesity (BMI 30-39.9); Type 2 diabetes mellitus without complication, without long-term current use of insulin (HCC); Type 2 diabetes mellitus with diabetic nephropathy (HCC); Type 2 diabetes mellitus with other specified complication (HCC); Mixed hyperlipidemiaStart: 03-15-2025 End: 31-36-6960jpcwjxsmqpCWXF MARKPalakHOLZNot AvailableStart: 03-15-2025 End: 32-79-7576Nxuhtc flowsheetLisa Merlynholz MINK SLICER Work Phone: [facility] CWM FMStart: 03-15-2025 End: 40-00-9604Thgvib flowsheetLisa Mengz MINK SLICER Work Phone: [facility] CWM FMStart: 02-20-2025 End: 52-86-9851Txizsx Jacque Taylor MD Work Phone: [facility]oms SWS OBStart: 02-20-2025 End: 33-09-5060Nriyyo Jacque Taylor MD Work Phone: [facility] SWS OBStart: 02-20-2025 End: 05-31-7135Ifqliqc preventive medicine new patient 40-64yrsJuno Taylor MD Work Phone: [facility] OBComment on above:Well woman exam with routine gynecological exam (Primary Dx); Screening for HPV (human papillomavirus); Other screening mammogram; Cervical cancer screeningStart: 02-20-2025 End: 04-03-9216Vkaiztt encounter Sameer Taylor MD Work Phone: [facility] Work Phone: start: 02-20-2025 End: 39-10-8339japuyavudvEVRAH J PRINTYNot AvailableStart: 01-04-2025 End: 61-74-6067Zscnuy flowsheetLisa Aichholz MINK SLICER Work Phone: [facility] CWM FMStart: 01-04-2025 End: 33-08-6955Hsyhqp flowsheetLisa Aichholz MINK SLICER Work Phone: [facility] FMStart: 01-04-2025 End: 44-42-1695Iwtqoy outpatient visit 25 minutesLisa Mengz MINK SLICER Work Phone: [facility] CWM FMComment on above:Essential hypertension (CMS/HCC) (Primary Dx); Obesity (BMI 30-39.9); Mixed hyperlipidemia (CMS/HCC)Start: 01-04-2025 End: 43-72-9616ndltxxzsbnDVRH AICHHOLZNot AvailableStart: 11-29-2024 End: 24-22-9456kmgtsoqtovWBFW AICHHOLZNot AvailableStart: 11-28-2024 End: 52-22-8555awvpgcykhkMBOAH A PETITTINot AvailableStart: 10-07-2024 End: 80-14-0076Rfpmoirak Result EncounterLisa Aichholz MINK SLICER Work Phone: noms External Department UnsolicitedStart: 10-07-2024 End: 96-82-8607Tsausqiod Result EncounterLisa Aichholz MINK SLICER Work Phone: [facility] External Department UnsolicitedStart: 08-25-2024 End: 84-18-1910Zskvix flowsheetLisa Aichholz MINK SLICER Work Phone: NOM[facility] CWM FMStart: 08-25-2024 End: 03-89-5009Emdxpc dorcasheetMela Zuletaleilani MINK SLICER Work Phone: [facility] CWM FMStart: 08-25-2024 End: 13-41-2845Cydvxe outpatient visit 25 minutesMela Zuletaleilani MINK SLICER Work Phone: NOM[facility] CWM FMComment on above:Type 2 diabetes mellitus without complication, without long-term current use of insulin (CMS/HCC) (P rimary Dx); Essential hypertension (CMS/HCC); Tobacco dependence; Colon cancer screening; Encounter for screening mammogram for malignant neoplasm of breast; Mixed hyperlipidemia (CMS/HCC); Obesity (BMI 30-39.9)Start: 08-25-2024 End: 06-64-4370bccouypjjbEVBH AICHHOLZNot AvailableStart: 08-02-2024 End: 12-27-3213VrnxhiZjloAlfredo NATION CWM FMComment on above:Mixed hyperlipidemia (CMS/HCC)Start: 07-21-2024 End: 73-64-8778LkqdycAgtv Aichholz MINK SLICER Work Phone: [facility] CWM FMComment on above:Essential hypertension (CMS/HCC)Start: 05-26-2024 End: 52-18-9107Otzttf dorcasheetLisa Merlynholz MINK SLICER Work Phone: [facility] CWM FMStart: 05-26-2024 End: 86-68-1702Giocbt flowsheetLisa Merlynholz MINK SLICER Work Phone: [facility] CWM FMStart: 05-26-2024 End: 96-22-4869Fqgoiv outpatient visit 25 minutesMela Markpalakleilani MINK SLICER Work Phone: [facility] CWM FMComment on above:Essential hypertension (CMS/HCC) (Primary Dx); Type 2 diabetes mellitus without complication, without long-term current use of insulin (CMS/HCC); Overweight (BMI 25.0-29.9); Tobacco dependenceStart: 05-26-2024 End: 59-10-4850lpmtfnumqwAARL AICHHOLZNot AvailableStart: 05-19-2024 End: 70-77-0654Orrgqqwgo Result EncounterLisa Aichholz MINK SLICER Work Phone: noms External Department UnsolicitedStart: 05-19-2024 End: 44-98-5972Rbjntkiyn Result EncounterLisa Aichholz MINK SLICER Work Phone: noms External Department UnsolicitedStart: 05-10-2024 End: 33-26-4467JfgklzYbgh Aichholz MINK SLICER Work Phone: [facility] CWM FMComment on above:Essential hypertension (CMS/HCC)Start: 02-08-9567JqfhinQvmb Aichholz MINK SLICER Work Phone: n[facility] CWM FMComment on above:Mixed hyperlipidemia (CMS/HCC) (Primary Dx)Start: 09-30-2023 End: 36-79-5274Zoahgbvbb Result EncounterLisa Aichholz MINK SLICER Work Phone: noms External Department UnsolicitedStart: 09-30-2023 End: 35-08-6132Tulorfrpy Result EncounterLisa Aichholz MINK SLICER Work Phone: noms External Department UnsolicitedStart: 09-05-2022 End: 62-92-4091cwphcnqctcMX CHARLES HOUSEFacility:M7Hbtav: 05-30-2022 End: 93-72-3085kxqinufmrlFtcrcov T PowersFacility:FTMCStart: 05-30-2022 End: 79-29-7348Twxrqyk encounter procedureMichael T Cole [facility] Start: 93-77-1320Tesxwsvhq for general adult medical examination without abnormal findingsDR EVAN GILLESPIESCCI Hospital Limatart: 11-11-2021 End: 66-44-5449flnweydykcMT CHARLES WATER VIEWFacility:B5Szagl: 11-11-2021 End: 07-39-3658Vagtbzaxx for general adult medical examination without abnormal findings EVAN WATER VIEWFacility:Q3Wgctk: 09-20-2021 End: 75-96-3240mezmgopvdlIabv D Black HawkFacility:FTMCStart: 09-10-2020 End: 06-86-6668Xgxbjlwnbp and management of inpatientSR EVAN Lu [facility] Hospitaltart: 09-10-2020 End: 79-49-3581Sswgttdbmj and management of inpatientBo H. Santosh Work Phone: [facility] 2W Ortho TeleComment on above:Right leg weakness (Primary Dx); Protruded lumbar disc; Postoperative pain Procedures DateProcedureProcedure DetailPerforming ClinicianStart: 76-08-6320Ffuhbwxwywc Alex Justoarina GLOVER Work Phone: Start: 72-92-3224ZD FOOT LT MIN 3VLisa Aichholz MINK SLICER Work Phone: Start: 72-97-6682Ishlcupxzx glycosylated h9qTuob Aichholz MINK SLICER Work Phone: Start: 63-64-8302EZ TOMOSYNTHESIS SCREENING BILisa Aichholz MINK SLICER Work Phone: Start: 45-52-9434NzleywktatjRvjr Aichholz MINK SLICER Work Phone: Start: 49-32-4917Knuwsuyfap glycosylated p5bEkvg Aichholz MINK SLICER Work Phone: Start: 72-19-2803SOG HEMOGLOBIN S3OWcuk Aichholz MINK SLICER Work Phone: Start: 48-31-9578XO TOMOSYNTHESIS SCREENING BILisa Aichholz MINK SLICER Work Phone: Start: 60-12-4393OcfcvrmfbmfGwnn Aichholz MINK SLICER Work Phone: Start: 55-41-8226Entzsivpmvl during operationBo H. Santosh Work Phone: Start: 41-87-3771Lbae bld gluc mntr dev cleared fda spec home useUnknown Provider ResultStart: 65-89-5774Yucz bld gluc mntr dev cleared fda spec home useUnknown Provider ResultStart: 18-43-0533Obmxy spine lumbosacral minimum 4 viewsCelsa Alexander Work Phone: Start: 15-24-3745Qvmumdmfdw exam chest single viewCelsa Alexander Work Phone: Start: 91-81-0337HQXZE-19Hopro Alexander Work Phone: Start: 67-71-4907Pkj routine ecg w/least 12 lds w/i&r Hope Antony Alexander Work Phone: Start: 72-26-1374Kfwkx count complete auto&auto difrntl wbcCelsa Alexander Work Phone: Start: 93-78-6801Cyajrfluidguj metabolic panelCelsa Alexander Work Phone: Start: 27-36-1478Ikbpqunmdca timeCelsa Alexander Work Phone: Start: 35-73-5786Lvazadfthlxcev time partial plasma/whole bloodCelsa Alexander Work Phone: Start: 39-39-9671Ygw spinal canal lumbar w/o contrast materialCelsa Alexander Work Phone: Start: 92-42-1407BdyqdwejpfuNbxn Abimbola FORDE Work Phone: Plan of Treatment DateCare ActivityDetailAuthorStart: 36-68-4274Ogdtjjgit for malignant neoplasm of colonNOMS HealthcareStart: 89-44-0659Bzxgvtcqu for malignant neoplasm of colonNOMS HealthcareStart: 77-26-6771Wytibywl screeningDiabetes: Retinopathy ScreeningNOMS HealthcareStart: 87-71-2356Vezzm screening for proteinDiabetes: Urine Protein ScreeningNOMS HealthcareStart: 11-28-2025 End: 50-81-1528Kenujor encounter procedureNOMS SWS DERMStart: 10-08-2025 End: 79-09-6559UKZ Breast - bilateral screeningBilateral screening mammogram with tomosynthesis Imaging Routine Other screening mammogram Expected: 10/08/2025, Expires: 04/18/2026NOSC HealthcareComment on above:Expected: 10/08/2025, Expires: 04/18/2026Start: 86-99-9911Bdagcunlw for malignant neoplasm of breastMammogramBLUE MOUNTAIN HOSPITAL, INC. HealthcareStart: 07-11-2025 End: 01-23-4281Giwxuyn encounter mrmgabvvh06/21/2025 9:20 AM EDT Office Visit [facility] [address] [place] [address] Mela Daily MINK SLICER [address] [place] [address] [facility] FMStart: 20-79-0593Wxybwtykug A1c measurement Diabetes: Hemoglobin W0NTAWD HealthcareStart: 59-07-9160Fkcdnmsgi vaccination Influenza Vaccine (#1)[facility] HealthcareStart: 05-09-2025 End: 81-60-7171Xsmaqiy encounter afelgktvg42/19/2025 9:00 AM EDT Office Visit [facility] [address] [facility] [address] [place] [address] Alex Teran DO [address] [facility] [address] [place] [address] [facility] ST GENSStart: 44-84-1544Gdaeduexs for malignant neoplasm of colonColorectal Cancer ScreeningNOSC HealthcareComment on above:Postponed from 1960 (Other Patient Reasons)Start: 04-10-2025 End: 02-44-0480Qjvuthz encounter procedureNOAMERICAN HOSPITAL ASSOCIATION FMComment on above:Essential hypertension (Primary Dx); Left foot pain; Type 2 diabetes mellitus without complication, without long-term current use of insulin (HCC); Obesity (BMI 30-39.9)Start: 04-05-2025 End: 07-82-6872Kltolqs aminotransferase [Enzymatic activity/volume] in Serum or PlasmaALT Lab Routine Mixed hyperlipidemia (CMS/HCC) Expected: 04/05/2025 (Approximate), Expires: 01/04/2026[facility] HealthcareComment on above:Expected: 04/05/2025 (Approximate), Expires: 01/04/2026Start: 04-05-2025 End: 78-58-1781Jxjooglme aminotransferase [Enzymatic activity/volume] in Serum or PlasmaAST Lab Routine Mixed hyperlipidemia (CMS/HCC) Expected: 04/05/2025 (Approximate), Expires: 01/04/2026[facility] HealthcareComment on above:Expected: 04/05/2025 (Approximate), Expires: 01/04/2026Start: 04-05-2025 End: 23-96-5849Pjkqw 1996 panel - Serum or PlasmaLipid panel Lab Routine Mixed hyperlipidemia (CMS/HCC) Expected: 04/05/2025 (Approximate), Expires:01/04/2026 [facility] Work Phone: Comment on above:Expected: 04/05/2025 (Approximate), Expires: 01/04/2026Start: 04-04-2025 End: 85-10-5460Jipztrr encounter ddplooafa60/15/2025 9:15 AM EDT Consult [facility] [address] [facility] [address] [place] [phone] Alex Teran DO [address] [facility] [address] [place] [address] GENSStart: 03-15-2025 End: 42-06-0761Sqmmsfs encounter wdxfsxfyf55/25/2025 4:00 PM EDT Office Visit [facility] [address] [place] [phone] Mela Daily NP [address] [place], [place] [phone] Essential hypertension (Primary Dx); Obesity (BMI 30-39.9); Type 2 diabetes mellitus without complication, without long-term current use of insulin (HCC); Type 2 diabetes mellitus with diabetic nephropathy (HCC); Type 2 diabetes mellitus with other specified complication (HCC); Hyperlipidemia, unsp ecifiedNOMS CWM FMComment on above:Essential hypertension (Primary Dx); Obesity (BMI 30-39.9); Type 2 diabetes mellitus without complication, without long-term current use of insulin (HCC); Type 2 diabetes mellitus with diabetic nephropathy (HCC); Type 2 diabetes mellitus with other specified complication (HCC); Hyperlipidemia, unspecifiedStart: 03-15-2025 End: 33-70-2803RZ Foot - left 3 ViewsXR foot 3+ views left Imaging Routine Left foot pain Expected: 03/15/2025, Expires: 03/15/2026[facility] Work Phone: Comment on above:Expected: 03/15/2025, Expires: 03/15/2026Start: 50-93-9854Rvopuoxqfp A1c measurementDiabetes: Hemoglobin A1C [facility] HospitalStart: 02-20-2025 End: 95-54-4576Rkspbbo encounter /02/2025 1:00 PM EDT Office Visit [facility] [address] [place] [address] Juno Taylor MD [address] [place] [address] Well woman exam with routine gynecological exam; Cervical cancer screening; Screening for HPV (human papillomavirus); Other screening mammogramNOMS [facility] OBComment on above:Well woman exam with routine gynecological exam; Cervical cancer screening; Screening for HPV (human papillomavirus); Other screening mammogramStart: 01-04-2025 End: 53-81-7392Bvyfvxv encounter gyjrgbfqz08/16/2025 9:20 AM EDT Office Visit [facility] [address] [place] [phone] Mela Daily NP [address] [place] [address] Obesity (BMI 30-39.9) (Primary Dx); Essential hypertension (CMS/HCC); Cigarette nicotine dependence without complicationNOMS CWM FMComment on above:Obesity (BMI 30-39.9) (Primary Dx); Essential hypertension (CMS/HCC); Cigarette nicotine dependence without complicationStart: 11-28-2024 End: 90-31-0804Elyyiua encounter hfoemzlhf73/10/2025 8:35 AM EDT Office Visit [facility] [address] [place] [address] Hernán Saldivar MD [address] [place] [address] [facility] DERMStart: 29-27-9031Jkpduwychg A1c measurementDiabetes: Hemoglobin I7OPEIS HealthcareStart: 49-30-6558Lfywmzcqp for malignant neoplasm of cervixCervical Cancer ScreeningNOMS HealthcareComment on above:Postponed from 1991 (Patient Refused)Start: 15-32-4981Xpeivberv for malignant neoplasm of colonColorectal Cancer ScreeningNOMS HealthcareComment on above:Postponed from 1960 (Patient Refused)Start: 74-99-9219Sbvgfjfsq for malignant neoplasm of breastMammogramNOMS HealthcareStart: 75-74-2926Ujuec screening for proteinDiabetes: Urine Protein ScreeningNOSC HealthcareStart: 08-25-2024 End: 66-11-9883OQS W Auto Differential panel - BloodCBC and differential Lab Routine Tobacco dependence Expected: 08/25/2024 (Approximate), Expires: 01/2025NOMS HealthcareComment on above:Expected: 08/25/2024 (Approximate), Expires: 08/25/2025Start: 08-25-2024 End: 68-06-6242Aworioqcqkheq metabolic 2000 panel - Serum or PlasmaComprehensive metabolic panel Lab Routine Essential hypertension (CMS/HCC) Type 2 diabetes mellituswithout complication, without long-term current use of insulin (CMS/HCC) Expected: 08/25/2024 (Approximate), Expires: 08/25/2025N[facility]S HealthcareComment on above:Expected: 08/25/2024 (Approximate), Expires: 08/25/2025Start: 08-25-2024 End: 46-58-4310Qnfew 1996 panel - Serum or PlasmaLipid panel Lab Routine Type 2 diabetes mellitus without complication, without long-term current use of insulin (CMS/HCC) Expected: 08/25/2024 (Approximate), Expires: 08/25/2025[facility] Comment on above:Expected: 08/25/2024 (Approximate), Expires: 08/25/2025Start: 08-25-2024 End: 59-96-4792AD Breast - bilateral ScreeningBilateral screening mammogram Imaging Routine Encounter for screening mammogram for malignant neoplasm of breast Expected: 08/25/2024 (Approximate), Expires: 10/26/2025[facility] Work Phone: Comment on above:Expected: 08/25/2024 (Approximate), Expires: 10/26/2025Start: 08-25-2024 End: 81-14-7158Zajulyhgbaxg/Creatinine panel in random UrineMicroalbumin / creatinine, urine ratio Lab Routine Essential hypertension (CMS/HCC) Type 2 diabetesmellitus without complication, without long-term current use of insulin (CMS/HCC) Expected: 08/25/2024 (Approximate), Expires: 08/25/2025[facility] Comment on above:Expected: 08/25/2024 (Approximate), Expires: 08/25/2025Start: 08-25-2024 End: 60-32-7020Rzqqewebqy complete panel - UrineUrinalysis with reflex microscopic (clean catch) Lab Routine Essential hypertension (CMS/HCC) Type 2 diabetes mellitus without complication, without long-term current use of insulin (CMS/HCC) Tobaccodependence Expected: 08/25/2024 (Approximate), Expires: 08/25/2025[facility] HealthcareComment on above:Expected: 08/25/2024 (Approximate), Expires: 08/25/2025Start: 08-25-2024 End: 05-38-6763Qptkjen encounter procedureNOMS CWM FMComment on above:Essential hypertension (CMS/HCC) (Primary Dx); Type 2 diabetes mellitus without complication, without long-term current use of insulin (CMS/HCC); Overweight (BMI 25.0-29.9); Tobacco dependence; Colon cancer screening; Encounter for screening mammogram for malignant neoplasm of breast; Mixed hyperlipidemia ([facility]/HCC)Start: 18-89-4586Gjnawdiqx for malignant neoplasm of cervixCervical Cancer ScreeningNOMS HealthcareComment on above:Postponed from 1991 (Other Medical Reasons)Start: 63-49-2453Qnkawibs screeningDiabetes: Retinopathy ScreeningNOMS HealthcareComment on above:Postponed from 1971 (Other Medical Reasons)Start: 61-44-5727Ptmugqgnz vaccinationInfluenza Vaccine (#1)[facility] HealthcareComment on above:Postponed from 05/22/2024 (Patient Does Not Have Time)Start: 05-26-2024 End: 59-10-7387Nrhlfsp encounter procedureNOMS [facility] FMComment on above:Type 2 diabetes mellitus without complication, without long-term current use of insulin ([facility])Start: 63-14-4698Ndqzbiqyep A1c measurementDiabetes: Hemoglobin M4ZULLG HealthcareStart: 01-07-2024 End: 92-14-3175Iweprff encounter kgtmapidw66/18/2024 9:40 AM EDT Office Visit [facility] [address] [place] [address] Mela Daily NP [address] [place] [address] NOMDestini HULL FMStart: 96-66-6958Tesksgqdx for malignant neoplasm of cervixCervical Cancer ScreeningNOMS HealthcareComment on above:Postponed from 1991 (Other Medical Reasons)Start: 55-03-0098Szxixblqg for malignant neoplasm of colonColorectal Cancer ScreeningNOMS HealthcareComment on above: Postponed from 1961 (Other Medical Reasons)Start: 11-10-2023 End: 81-27-4905Mkhjdfx encounter izyyfsyml91/20/2024 8:30 AM EST Office Visit [facility] [address] [place] [phone] Hernán Saldivar MD [address] [place], [place] [address] NOMDestini CARMONA DERMStart: 76-49-7360Uqyxohbdd for malignant neoplasm of colonNOMS HealthcareStart: 42-19-8619Ixumszoots A1c measurement Diabetes: Hemoglobin D5RTVTY HealthcareStart: 09-24-2020 End: 80-49-0286Eobeme Visit09/24/2020 Office Visit Neurosurgery Fernandez Rios MD [address] [facility] [place] [address] [employer]Start: 85-06-9253Ksoegtgyh vaccinationFlu vaccine (#1) Maria Stein, [place]Start: 24-38-4243Wkucpvfsj for malignant neoplasm of breast Breast cancer screenMercy Health West Hospital: 61-38-1684Opgpqwwsw for malignant neoplasm of colonColon cancer screen colonoscopyMaria Stein, KYStart: 15-78-8004Xozrqlen Vaccine (1 of 2)Shingles Vaccine (1 of 2)[place], [place] Start: 73-72-1527Fdbsatvg screenDiabetes screenMaria Stein, [place]Start: 22-84-1425Dhlnq panelLipid [facility] McKeesportart: 37-38-4690Bdoyqidpk for malignant neoplasm of cervixNOMS HealthcareStart: 86-46-5327Cdcljjslv for malignant neoplasm of cervixNOMS HealthcareStart: 41-58-5037TQuT/Tdap/Td vaccine (1 - Tdap)DTaP/Tdap/Td vaccine (1 - Tdap)Maria Stein, [place]Start: 1980 Urine screening for proteinDiabetes: Urine Protein ScreeningWashington County Memorial Hospital Start: 84-54-8327MZE screeningHIV screenMaria Stein, [place]Start: 1971 Glaucoma screeningDiabetes: Retinopathy ScreeningBLUE MOUNTAIN [facility], INC. HealthcareStart: 17-00-5747Egzbxvisu C screeningHepatitis C screenMaria Stein, KYStart: 67-79-4848Kferpbgxy for malignant neoplasm of colonNOMS HealthcareEKG 12 Lead - Chest PainEKG 12 Lead - Chest Pain ECG STAT 09/10/2020 4:[address] [facility], KYIGP, APT HPV,RFX 16/18,45IGP, APT HPV,RFX 16/18,45 Lab Routine Screening for HPV (human papillomavirus) Cervical cancer screening Ordered: 02/20/2025[facility] Work Phone: comment on above:Ordered: 02/20/2025Oxygen therapy [Minimum Data Set]Initiate Oxygen Therapy Protocol Respiratory Care Routine Daily until discontinued starting 09/10/2020[facility], KYComment on above:Daily until discontinued starting 09/10/2020Surgical PathologySurgical Pathology Lab Routine Release Upon Ordering for 1 Occurrences starting 09/11/2020[facility], KYComment on above:Release Upon Ordering for 1 Occurrences starting 09/11/2020[facility] Immunizations Immunization DateImmunizationNotesCare QnbsubpkQormhdbu67-70-5246aiugkpwqb, injectable, madin nila canine kidney, preservative freeLisa Aichholz MINK SLICER Work Phone: [facility] HospitalBkndoqsccd72-00-2313sofakqarl virus vaccine, unspecified formulationPaul Laffay DO Work Phone: noSaint Luke's North Hospital–Barry RoadIwdnibiqha11-93-9652jghcsfacj, injectable, quadrivalent, preservative freeLisa Aichholz MINK SLICER Work Phone: [facility] HospitalJpqncnrjnv03-90-2409ohoqqzhxf virus vaccine, unspecified formulationLisa Aichholz MINK SLICER Work Phone: [facility] HospitalFlctujedxj53-95-8756dhsrffrru, injectable, quadrivalent, preservative freeLisa Aichholz MINK SLICER Work Phone: [facility] HospitalBuykqsppmh95-87-9212trtuupklpyzz polysaccharide vaccine, 23 valentLisa Aichholz MINK SLICER Work Phone: [facility] HospitalPhrunmvgtu36-91-7320ptcnmvgfg, injectable, quadrivalent, preservative freeLisa Aichholz MINK SLICER Work Phone: [facility] HospitalXyoyfwgyzq26-50-9142Tqqapgthe, injectable, Madin Nila Canine Kidney, preservative free, quadrivalentLisa Aichholz MINK SLICER Work Phone: [facility] Payers DatePayer CategoryPayerPolicy [id number] Cross Blue [id number] BCBS [id number] 2015-Present [phone] [address] [place] [address] [id number] 2.16.840.1.338546.3.57[id number] 2.16.840.1.843224.3.57[id number] 2.16.840.1.016389.3.57[id number] 2.16.840.1.744665.3.57[id number] 2.16.840.1.458547.3.57[id number] 2.16.840.1.820762.3.57[id number] 2.16.840.1.886907.3.57[id number] 2.16.840.1.825186.3.57[id number] 2.16.840.1.000116.3.57[id number] 2.16.840.1.068286.3.57[id number] 2.16.840.1.709713.3.57[id number] 2.16.840.1.691283.3.57[id number] 2.16.840.1.972326.3.57[id number] 2.16.840.1.923213.3.57[id number] 2.16.840.1.689136.3.579.[id number] 1.2.840.002689.1.13.23[id number] 2.16.840.1.590290.3.579.2.531 Social History DateTypeDetailFacilityStart: 09-11-2020 End: 01-69-8439Vthypym smoking status NHISFormer smokerBLUE MOUNTAIN H[facility]ITAL, INC. Healthcare End: 35-21-9493Diopxqy of tobacco useCigarette SmokerMercy Health West Hospital: 09-11-2020 End: 58-53-8501Tyhhmbcwkt smoked current (pack per day) - ReportedBLUE MOUNTAIN HOSPITAL, INC. HealthcareStart: 09-11-2020 End: 72-85-0459Dssoewx use and exposureNever usedMaria Stein, [place]Start: 88-88-0791Kryxena intakeLifetime non-drinker (finding)[facility]: 83-22-1655Vyvdqpl SDOH Alcohol Olnznnnju8IjwfvMercy Health West Hospital: 1960 Sex Assigned At BirthNot on fileLima Memorial Hospital, NYExposure to SARS-CoV-2 (event)Not sureOhioHealth O'Bleness Hospitalbamer[facility] smoking statusNo Smoking Status [facility] Campustart: 08-25-2023 End: 71-42-1292Phl Assigned At [facility] Hospitaltart: 42-61-0580Chbczis smoking status NHISSmokes tobacco dailyNOMS HealthcareStart: 08-25-2023 End: 98-62-9230Wwnbzze intakeCurrent drinker of alcohol (finding)[facility] Within the last year, have you been afraid of your partner or ex-partner?NoNOMS HealthcareDo you belong to any clubs or organizations such as sabianism groups, Seiratherms, fraAlethia BioTherapeutics or athletic groups, or school groups?YesNOMS HealthcareAre you now , , , , never or living with a partner?MarriedNOMS HealthcareHow often to you have a drink containing alcohol? Monthly or lessNOMS HealthcareHow many standard drinks containing alcohol do you have on a typical day?1 or 2NOMS HealthcareHow often do you have 6 or more drinks on 1 occasion?Less than monthlyNOMS HealthcareStart: 02-94-7054Zoi hard is it for you to pay for the very basics like food, housing, medical care, and heatingNot hard at allBLUE MOUNTAIN HOSPITAL, INC. HealthcareDo you feel stress - tense, restless, nervous, or anxious, or unable to sleep at night because yourmind is troubled all the time - these days [OSQ]Not at allNOSC Healthcare(I/We) worried whether (my/our) food would run out before (I/we) got money to buy more.Never trueNOMS HealthcareStart: 16-56-1802Dtibhek Bqeqpux53-82 cigarettes/dayNOMS Healthcare Start: 05-82-1974Banbgkr Comment1-2 drinks monthly or less, caffeine 1-2 cups per dayNOSC Healthcare End: 89-19-7973Cnsrlkr of tobacco useCurrent smokerNOSC HealthcareTobacco smoking status NHISUnknown if ever smokedZanesville City Hospital Work Phone: SexFemale (finding)[facility] Start: 14-35-4256Wyh Assigned At [facility] Medical Equipment Procedure CodeEquipment CodeEquipment Original TextEquipment IdentifierDates Daily Use as [id number]: 01-07-2024 End: each [id number]: 01-07-2024 End: 52-10-5516Bdqgc Use as [id number]: 08-25-2024 End: each [id number]: 31-63-9718Jvhbi Use as instructed [id number]: 11-29-2024 End: each [id number]: 11-29-2024 End: 92-55-1696Bxuep Sugar Diagnostic (Onetouch Ultra Test) stripStart: 07-07-2025 Functional Status DodxWkenfmhuttHmxabjXchucspn46-85-6099Wvhizlz Health Questionnaire 2 item (PHQ- 2) [Reported][facility] Clinical Notes 05-26-2024 to 05-09-2025 Note Date & BigmUkgwMyofdwxj29-02-8797 History of Present illness Narrative* Alex Teran DO - 05/09/2025 9:00 AM EDT Images from the original note were not included. Jordy Philip 1960 Jordy Philip is a 64 y.o. female presents for 1st po colonoscopy (/) HPI: HPI Patient had no problems with colonoscopy. She has not having any blood in his stool. She has not having any abdominal pain. OBJECTIVE: Physical Exam Constitutional: Appearance: Normal appearance. She is not ill-appearing. Cardiovascular: Rate and Rhythm: Regular rhythm. Abdominal: General: There is no distension. Tenderness: There is no abdominal tenderness. ASSESSMENT AND PLAN: Assessment/Plan Diagnoses and all orders for this visit: Adenomatous polyp of transverse colon Family history of colon cancer Patient is status post colonoscopy, was identified as having a transverse colon polyp which was tubular adenoma and removed. We discussed pathology report. Also diverticulosis and internal hemorrhoids. We discussed follow up because of her history as well as family history of colon cancer with her brother. Would recommend repeat colonoscopy in 5 years. No follow-ups on file. documented in this encounterWashington County Memorial HospitalDqnaiooxte56-34-2847 History of Present illness Narrative* Mela Daily NP - 04/10/2025 9:44 AM EDTAssociated Problem(s): Environmental and seasonal allergies Suspect occ green sputum is post nasal May use OTC allergy meds Fu if worsening * NANDA BANKS - 04/10/2025 9:20 AM EDT Left foot is just now better- pt states she stopped wearing regular shoes she is wearing tennis shoes today and once in awhile she has pain but states her foot is better * Mela Daily NP - 04/10/2025 9:20 AM EDT Images from the original note were not included. Jordy Philip is a 64 y.o. female presents with chief complaint of Diabetes HPI: Foot pain: resolved, no swelling or redness Sneezing, some green sputum in morning only, no dypsnea no wheeze, no fatigue Diabetes She presents for her follow-up diabetic visit. She has type 2 diabetes mellitus. Her disease coursehas been stable. There are no hypoglycemic associated symptoms. Pertinent negatives for hypoglycemia include no dizziness, headaches, nervousness/anxiousness, seizures or tremors. Pertinent negativesfor diabetes include no blurred vision, no chest pain, no polydipsia, no polyphagia and no polyuria. There are no hypoglycemic complications. Symptoms are stable. Pertinent negatives for diabetic complications include no nephropathy, peripheral neuropathy or PVD. Risk factors for coronary artery disease include hypertension, diabetes mellitus, dyslipidemia and obesity. Current diabetic treatment includes oral agent (dual therapy). She is compliant with treatment all of the time. Her weight is stable. Her overall blood glucose range is 140- 180 mg/dl. An MONICA inhibitor/angiotensin II receptor kailey is being taken. She does not see a mobile web application developer.Eye exam is current. Hypertension This is a chronic problem. The current episode started more than 1 year ago. The problem is unchanged. The problem is controlled. Pertinent negatives include no blurred vision, chest pain, headaches,palpitations, peripheral edema or shortness of breath. There are no associated agents to hypertension. Risk factors for coronary artery disease include diabetes mellitus, dyslipidemia and obesity. Past treatments include calcium channel blockers and MONICA inhibitors. The current treatment provides significant improvement. There are no compliance problems. There is no history of CAD/ND, heart failure or PVD. SUBJECTIVE: MEDICATIONS: Current Outpatient Medications Medication Instructions amLODIPine (NORVASC) 5 mg, Oral, Daily aspirin 81 mg, Daily atorvastatin (LIPITOR) 40 mg, Oral, Nightly dapagliflozin (FARXIGA) 10 mg, Oral, Daily glucose blood (True Metrix Blood Glucose Test) test strip Daily Use as instructed lisinopril 30 mg, Oral, Daily metFORMIN (GLUCOPHAGE) 500 mg, Oral, 2 times daily with meals propranolol LA (INDERAL LA) 60 mg, Oral, Daily ALLERGIES: Allergies Allergen Reactions Jardiance [Empagliflozin] Rash REVIEW OF SYMPTOMS: Review of Systems Constitutional: Negative for appetite change, chills and fever. HENT: Positive for sneezing. Negative for congestion, ear pain and sore throat. Eyes: Negative for blurred vision, pain, discharge, redness and visual disturbance. Respiratory: Negative for cough (dry), shortness of breath and wheezing. Cardiovascular: Negative [...] in her son. OBJECTIVE: Visit Vitals BP 130/82 (BP Location: Left arm, Patient Position: Sitting, BP Cuff Size: Adult long) Pulse 65 Resp 18 Wt 178 lb 12.8 oz SpO2 96% BMI 30.69 kg/m OB Status Hysterectomy Smoking Status Former BSA 1.91 m Physical Exam Vitals and nursing note reviewed. Constitutional: General: She is not in acute distress. Appearance: Normal appearance. HENT: Head: Normocephalic and atraumatic. Right Ear: Tympanic membrane, ear canal and external ear normal. Left Ear: Tympanic membrane, ear canal and external ear normal. Nose: Rhinorrhea present. No congestion. Mouth/Throat: Mouth: Mucous membranes are moist. Pharynx: No oropharyngeal exudate or posterior oropharyngeal erythema. Eyes: Extraocular Movements: Extraocular movements intact. Conjunctiva/sclera: Conjunctivae normal. Neck: Vascular: No carotid bruit. Cardiovascular: Rate and Rhythm: Normal rate and regular rhythm. Pulses: Normal pulses. Heart sounds: Normal heart sounds. Pulmonary: Effort: Pulmonary effort is normal. Breath sounds: Normal breath sounds. No wheezing or rhonchi. Abdominal: General: Bowel sounds are normal. There [...] and farxiga A1c: 7.4% 03/15/25 6.8% 11/29/24 Essential hypertension - Primary Please check blood pressure daily and record DASH diet Limit caffeine Take medication as directed Contact office if chest pain, pressure, dizziness, shortness of breath, swelling legs Recommend slow position changes Current meds: lisinopril, amlodipine, and propranolol Obesity (BMI 30-39.9) Left foot pain Neg xray 03/18/25 resolved Environmental and seasonal allergies Suspect occ green sputum is post nasal May use OTC allergy meds Fu if worsening * Mela Daily NP - 04/10/2025 6:35 AM EDTAssociated Problem(s): Type 2 diabetes mellitus [...] 6.8% 11/29/24 * Mela Daily NP - 04/10/2025 6:35 AM EDTAssociated Problem(s): Left foot pain Neg xray 03/18/25 resolved * Mela Daily NP - 04/10/2025 6:34 AM EDTAssociated Problem(s): Essential hypertension Please check blood pressure daily and record DASH diet Limit caffeine Take medication as directed Contact office if chest pain, pressure, dizziness, shortness of breath, swelling legs Recommend slow position changes Current meds: lisinopril, amlodipine, and propranolol documented in this encounterWashington County Memorial [id number] History of Present illness Narrative* Alex Teran, - 04/04/2025 9:15 AM EDT Images from the original note were not included. Jordy Philip 1960 Jordy Philip is a 64 y.o. female presents with chief complaint of Consult (Colonoscopy- Last colonoscopy 2012, polyps found- no Family hx) HPI: HPI patient says that she is long overdue for a colonoscopy. She believes she was told she should have 1 at 5 years after her last 1 in 2012 however with her job she was constantly unable to follow up with things medically. She was going to have a colonoscopy last year and then was having some dizziness issues and things with her diabetes and that has gotten straightened out. When she tried to contact Dr. Garrido again he was gone. She has not having any blood in his stool. She has not having any abdominal pain. She has not having any change in stool caliber. No family history of colon cancer. SUBJECTIVE: MEDICATIONS: ALLERGIES Current Outpatient Medications Medication Instructions amLODIPine (NORVASC) 5 mg, Oral, Daily aspirin 81 mg, Daily atorvastatin (LIPITOR) 40 mg, Oral, Nightly dapagliflozin (FARXIGA) 10 mg, Oral, Daily glucose blood (True Metrix Blood Glucose Test) test strip Daily Use as instructed lisinopril 30 mg, Oral, Daily metFORMIN (GLUCOPHAGE) 500 mg, Oral, 2 times daily with meals propranolol LA (INDERAL LA) 60 mg, Oral, Daily Allergies Allergen Reactions Jardiance [Empagliflozin] Rash PAST MEDICAL HISTORY: SOCIAL HISTORY SURGICAL HISTORY: Past Medical History: Diagnosis Date Arthritis Carpal tunnel syndrome on both sides Colonic polyp 2012 Diabetes mellitus (HCC) Fibroids 2009 Hemorrhoids 2013 High cholesterol Hypertension Obesity (BMI 30-39.9) 08/25/2023 Social History Tobacco Use Smoking status: Former Current packs/day: 0.00 Types: Cigarettes Quit date: 2022 Years since quittin.5 Smokeless tobacco: Never Tobacco comments: 10-19 cigarettes/day Vaping Use Vaping status: Never Used Substance Use Topics Alcohol use: Yes Alcohol/week: 2.0 standard drinks of alcohol Types: 2 Standard drinks or equivalent per week Comment: 1-2 drinks monthly or less, caffeine 1-2 cups per day Drug use: Never Past Surgical History: Procedure Laterality Date BACK SURGERY COLONOSCOPY W/ BIOPSIES 2012 Colonic polyps, Hemorrhoids DILATION AND CURETTAGE 2002 HYSTERECTOMY Procedure:supracx. hysterectomy;Disease:fibroids SHOULDER ARTHROSCOPY 06/27/2022 L shoulder scope- MTP SPINE SURGERY TRIGGER FINGER RELEASE TUBAL LIGATION VAGINAL DELIVERY x2 REVIEW OF SYMPTOMS: Review of Systems Constitutional: Negative for appetite change, fatigue and fever. HENT: Negative for trouble swallowing. Respiratory: Negative for cough and shortness of breath. Cardiovascular: Negative for chest pain. Gastrointestinal: Negative for abdominal pain. Genitourinary: Negative for hematuria. Musculoskeletal: Negative for back pain. Skin: Negative for wound. Neurological: Negative for seizures. OBJECTIVE: Visit Vitals BP 120/72 Ht 5' 4 Wt 177 lb BMI 30.38 kg/m OB Status Hysterectomy Smoking Status Former BSA 1.9 m Physical Exam Constitutional: Appearance: Normal appearance. HENT: Head: Atraumatic. Eyes: General: No scleral icterus. Cardiovascular: Rate and Rhythm: Regular rhythm. Pulmonary: Effort: No respiratory distress. Abdominal: General: There is no distension. Tenderness: There is no abdominal tenderness. Skin: Findings: No bruising. Neurological: Mental Status: She is alert. Gait: Gait normal. ASSESSMENT AND PLAN: Assessment/Plan Diagnoses and all orders for this visit: Personal history of other colon polyps With personal history of colon polyps patient is long overdue from her colonoscopy, she had been told should have 1 5 years after her last. We discussed colon polyps, colon cancer surveillance and removal of polyps with colonoscopy. She wants to proceed Plan is for colonoscopy. We discussed the prep, the procedure, the risks and the benefits and the potential complications including, but not limited to, perforation and bleeding. They would like to proceed. documented in this encounterWashington County Memorial [id number] History of Present illness Narrative* Mela Daily NP - 03/15/2025 4:35 PM EDTAssociated Problem(s): Left foot pain Check xray Indomethacin prn Discussed DD: gout, DN, stress fracture Keep fu appt * NANDA BANKS - 03/15/2025 4:00 PM EDT Left foot pain-started about 2 weeks ago shooting pain to the toes. * Mela Daily NP - 03/15/2025 4:00 PM EDT Images from the original note were not included. Jordy Philip is a 64 y.o. female presents with [...] lisinopril, amlodipine, and propranolol documented in this encounterWashington County Memorial [id number] Instructions* Patient Instructions* Mela Daily NP - 03/15/2025 4:00 PM EDT Check xray May use indomethacin as needed for pain, take with food documented in this encounterWashington County Memorial [id number] History of Present illness Narrative* Juno Taylor MD - 02/20/2025 1:00 PM EDT Images from the original note were not included. Juno Taylor MD Obstetrics and Gynecology Patient: Jordy Philip, : 1960 (64 y.o.) DOS 02/20/25 Exam Date: 02/20/2025 HPI: Pt is re-establishing care at the insistance of her PCP. She has no issues, just needs screening exam and screening colonoscopy. She had a supracervical hyster many years ago( she cannot recall why asupracervical, and I can't locate my op note) [...] Not up to date/no abnormal Mammo: 10/07/24-Neg ([facility]) Hysterectomy (still has cervix) Medication and Allergies Medication Documentation Review Audit Reviewed by Katarina Waldrop MA (Evaporator Supervisor) on 02/20/25 at 1258 Medication Order Taking? Sig Documenting Provider Last Dose Status amLODIPine (Norvasc) 5 MG tablet [id number] Take 1 tablet (5 mg) by mouth Daily Mela Abimbola MINK SLICER Active aspirin 81 MG EC tablet [id number] Take 81 mg by mouth Daily Mela MAURISIO Daily Active atorvastatin (Lipitor) 40 MG tablet [id number] Take 1 tablet (40 mg) by mouth at bedtime Mela MAURISIO Daily Active dapagliflozin (Farxiga) 10 MG [id number] Take 1 tablet (10 mg) by mouth Daily Mela Abimbola MINK SLICER Active glucose blood (True Metrix Blood Glucose Test) test strip [id number] Daily Use as instructed Mela MAURISIO Daily Active Lancets 30G [facility] [id number] 1 each Daily Mela Aicmeliton MINK SLICER Active lisinopril 30 MG tablet [id number] Take 1 tablet (30 mg) by mouth Daily Mela Abimbola MINK SLICER Active metFORMIN (Glucophage) 500 MG tablet [id number] Take 1 tablet (500 mg) by mouth in the morning and 1 tablet (500 mg) in the evening. Take with meals. Mela Daily NP Active propranolol LA (Inderal LA) 60 MG 24 hr capsule [id number] Take 1 capsule (60 mg) by mouth Daily MAURISIO Fabian Active Allergies Allergen Reactions Jardiance [Empagliflozin] Rash [...] 16/18,45 Print requisition?: Yes documented in this encounterWashington County Memorial [id number] History of Present illness Narrative* Mela Daily NP - 01/04/2025 10:51 AM EDTAssociated Problem(s): Mixed hyperlipidemia (CMS/HCC) Trigs not at goal, we will increase her atorvastatin to 40mg recheck labs in 3 months * Mela Daily NP - 01/04/2025 9:20 AM EDT Images from the original note were not included. Jordy Philip is a 64 y.o. female presents with [...] negatives include no blurred vision, chest pain, headaches,orthopnea, palpitations, peripheral edema or shortness of breath. There are no associated agents tohypertension. Risk factors for coronary artery disease include diabetes mellitus, dyslipidemia and obesity. Past treatments include MONICA inhibitors and calcium channel blockers. The current treatment provides significant improvement. There are no compliance problems. There is no history of CAD/ND, heart failure or PVD. SUBJECTIVE: MEDICATIONS: Current [...] on both sides Colonic polyp 2012 Diabetes ([facility]) Diabetes mellitus ([facility]) Fibroids 2009 Hemorrhoids 2012 High cholesterol (CMS/HCC) [...] Other Relevant Orders Lipid panel ALT AST * Mela Daily NP - 01/04/2025 6:18 AM EDTAssociated Problem(s): Cigarette nicotine dependence without complication (Resolved 01/04/2025) The patient has been advised of the risks of continued smoking: stroke, ND, all forms of cancer, lung disease, and . Options for quitting smoking include: cold turkey, hypnosis, acupuncture, nicotine replacement meds(gum, lozenges, and patches), Buproprion, and Varenicline. At this time pt is encouraged to evaluate their goals for wanting to quit smoking, and reach out toprovider when ready to start this process * Mela Daily NP - 01/04/2025 6:17 AM EDTAssociated Problem(s): Essential hypertension (CMS/HCC) Please check blood [...] not want to change at this time * Mela Daily NP - 01/04/2025 6:17 AM EDTAssociated Problem(s): Obesity (BMI 30-39.9) Discussed [...] take away any pills documented in this [facility]04-16-2025 Instructions* Patient Instructions* Mela Daily NP - 01/04/2025 9:20 AM EDT Check with insurance about trulicity, ozempic, and mounjaro Increase atorvastatin to 40mg daily, stop your 20mg documented in this encounterWashington County Memorial [id number] History of Present illness Narrative* Mela Daily NP - 08/25/2024 9:33 AM ESTAssociated Problem(s): Obesity (BMI 30-39.9) Discussed with patient their BMI (actual, verses recommended). We have also discussed lifestyle modifications: attempts to perform physical activity as chronic conditions allow, also to monitor dietary intake: increasing protein/fruits/veggies and lowering carb intake (unless contraindicated). Limit sodas, juices, and sugary drinks. * NANDA BANKS - 08/25/2024 9:00 AM EST [facility] needs [facility] Pt also has not taken BP meds this morning yet. * Mela Daily NP - 08/25/2024 9:00 AM EST Images from the original note were not included. Jordy Philip is a 64 y.o. female presents with chief complaint of Hypertension HPI: Hypertension This is a chronic problem. The current episode started more than 1 year ago. The problem is unchanged. The problem is controlled. Associated symptoms include neck pain and orthopnea. Pertinent negatives include no blurred vision, chest pain, headaches, palpitations, peripheral edema or shortness ofbreath. There are no associated agents to hypertension. Risk factors for coronary artery disease include diabetes mellitus, dyslipidemia and obesity. Past treatments include MONICA inhibitors. The current treatment provides significant improvement. There are no compliance problems. Diabetes She presents for her follow-up diabetic visit. She has type 2 diabetes mellitus. Her disease coursehas been improving. There are no hypoglycemic associated [...] diet. Her overall blood glucose range is 110- 130 mg/dl. An MONICA inhibitor/angiotensin II receptor kailey is being taken. She does not see a mobile web application developer.Eye exam is current. SUBJECTIVE: MEDICATIONS: Current Outpatient [...] 2012 Diabetes (CMS/HCC) Diabetes mellitus (CMS/HCC) Fibroids 2008 Hemorrhoids 2012 High cholesterol (CMS/HCC) Hypertension (CMS/HCC) [...] without long-term current use of insulin (CMS/HCC) -Primary Check blood sugars daily, notify if <70 [...] Colon cancer screening Was referred to dr garrido, to date no scope completed Encourage pt [...] of the risks of continued smoking: stroke, ND, all forms of cancer, lung disease, and . Options for quitting smoking include: cold turkey, hypnosis, acupuncture, nicotine replacement meds(gum, lozenges, and patches), Buproprion, and Varenicline. At this time pt is encouraged to evaluate their goals for wanting to quit smoking, and reach out toprovider when ready to start this process Relevant Orders CBC and differential Urinalysis with reflex microscopic (clean catch) Encounter for screening mammogram for malignant neoplasm of breast Due 09/2024 Will order Relevant Orders Bilateral screening mammogram * Mela Daily NP - 08/25/2024 6:39 AM ESTAssociated Problem(s): Colon cancer screening Was referred to dr garrido, to date no scope completed Encourage pt to get this scheduled * Mela Daily NP - 08/25/2024 6:38 AM ESTAssociated Problem(s): Mixed hyperlipidemia (CMS/HCC) Is on atorvastatin Check labs yearly and prn dose changes * Mela Daily NP - 08/25/2024 6:35 AM ESTAssociated Problem(s): Encounter for screening mammogram for malignant neoplasm of breast Due 09/2024 Will order * Mela Daily NP - 08/25/2024 6:34 AM ESTAssociated Problem(s): Tobacco dependence 09/22 ppd The patient has been advised of the risks of continued smoking: stroke, ND, all forms of cancer, lung disease, and . Options for quitting smoking include: cold turkey, hypnosis, acupuncture, nicotine replacement meds(gum, lozenges, and patches), Buproprion, and Varenicline. At this time pt is encouraged to evaluate their goals for wanting to quit smoking, and reach out toprovider when ready to start this process * Mela Daily NP - 08/25/2024 6:34 AM ESTAssociated Problem(s): Overweight (BMI 25.0-29.9) Discussed with patient their BMI (actual, verses recommended). We have also discussed lifestyle modifications: attempts to perform physical activity as chronic conditions allow, also to monitor dietary intake: increasing protein/fruits/veggies and lowering carb intake (unless contraindicated). Limit sodas, juices, and sugary drinks. . * Mela Daily NP - 08/25/2024 6:34 AM ESTAssociated Problem(s): Type 2 diabetes mellitus without complication, without long-term current useof insulin ([facility]) Check [...] asa, statin, metformin and farxiga A1c 6.1% * Mela Daily NP - 08/25/2024 6:33 AM ESTAssociated Problem(s): Essential hypertension ([facility]) Please check blood pressure daily and record DASH diet Limit caffeine Take medication as directed Contact office if chest pain, pressure, dizziness, shortness of breath, swelling legs Recommend slow position changes Current meds: lisinopril and propranolol, did not take yet this morning documented in this encounterWashington County Memorial [id number] Instructions* Patient Instructions* Mela Daily NP - 08/25/2024 9:00 AM EST A1c 6.1% great job, After 09/21/24: mammogram in September I will fax order to [facility] November appt we will talk about PAP smear and Colon cancer screening Also order of fasting labs documented in this [facility]09-05-2024 History of Present illness Narrative* Mela Daily NP - 05/26/2024 9:36 AM EDTAssociated Problem(s): Tobacco dependence The patient has been advised of the risks of continued smoking: stroke, ND, all forms of cancer, lung disease, and . Options for quitting smoking include: cold turkey, hypnosis, acupuncture, nicotine replacement meds(gum, lozenges, and patches), Buproprion, and Varenicline. At this time pt is encouraged to evaluate their goals for wanting to quit smoking, and reach out toprovider when ready to start this process * Mela Daily NP - 05/26/2024 9:34 AM EDTAssociated Problem(s): Type 2 diabetes mellitus without complication, without long-term current useof insulin ([facility]) Metformin at 500mg BID A1c is at 6.5% However sugar ranges in the 160-180's Will trial a sample of farxiga at 5mg daily #3 samples: Lot [id number], exp 01/18/26 Non specific rash from Jardiance, unsure if this is unique to this, or class related. Will trial Farxiga, if rash returns stop immediately. If tolerating ok, then can knot picker cloth script * Mela Daily NP - 05/26/2024 9:20 AM EDTAssociated Problem(s): Essential hypertension ([facility]/HCC) Will continue dose of lisinopril at 30mg daily Fu on blood pressure in 3 months Continue with steady weight loss * NANDA BANKS - 05/26/2024 9:00 AM EDT Fast bs was 192 Pt states her sugars have been 170s,180s, and 190s Pt has an eye appt on the * Mela Daily, MAURISIO - 05/26/2024 9:00 AM EDT Images from the original note were not included. Jordy Philip is a 63 y.o. female presents with chief complaint of No chief complaint on file. HPI: Diabetes She presents for her follow-up diabetic visit. She has type 2 diabetes mellitus. Her disease coursehas been stable. There are no hypoglycemic associated symptoms. Pertinent negatives for hypoglycemia include no dizziness, headaches, nervousness/anxiousness, seizures or tremors. Pertinent negativesfor diabetes include no chest pain, no fatigue, no foot paresthesias, no polydipsia, no polyphagia,no polyuria, no visual change and no weakness. [...] 2012 Diabetes (CMS/HCC) Diabetes mellitus (CMS/HCC) Fibroids 2008 Hemorrhoids 2012 High cholesterol (CMS/HCC) Hypertension (CMS/HCC) [...] farxiga at 5mg daily #3 samples: Lot [id number], exp 01/18/26 Non specific rash from Jardiance, unsure if this is unique to this, or class related. Will trial Farxiga, if rash returns stop immediately. If tolerating ok, then can knot picker cloth script Relevant Medications metFORMIN (Glucophage) 500 MG tablet dapagliflozin (Farxiga) 5 MG Essential hypertension (CMS/HCC) - Primary Will continue dose of lisinopril at 30mg daily Fu on blood pressure in 3 months Continue with steady weight loss Overweight (BMI 25.0-29.9) Tobacco dependence The patient has been advised of the risks of continued smoking: stroke, ND, all forms of cancer, lung disease, and . Options for quitting smoking include: cold turkey, hypnosis, acupuncture, nicotine replacement meds(gum, lozenges, and patches), Buproprion, and Varenicline. At this time pt is encouraged to evaluate their goals for wanting to quit smoking, and reach out toprovider when ready to start this process [facility] Plan note No data available for this section [facility]* Diagnosis Mixed hyperlipidemia (CMS/HCC)- Primary Mixed hyperlipidemia documented in this encounter [facility] [...] Unspecified essential hypertension documented in this encounter [facility] HealthcareEvaluation note* Diagnosis Type 2 diabetes mellitus [...] (CMS/HCC) Mixed hyperlipidemia documented in this encounter [facility] HealthcareEvaluation note* Diagnosis Type 2 diabetes [...] Obesity (BMI 30-39.9) documented in this encounter [facility] HealthcareEvaluation note* Diagnosis Essential hypertension (CMS/HCC) Unspecified essential hypertension documented in this encounter [facility] HealthcareEvaluation note* Diagnosis Essential hypertension (CMS/HCC)- Primary Unspecified essential hypertension Type 2 diabetes mellitus without complication, without long-term current use of insulin (CMS/HCC) Overweight (BMI 25.0-29.9) Overweight Tobacco dependence Tobacco use disorder documented in this encounter [facility] HealthcareEvaluation note* Diagnosis Type 2 diabetes [...] (CMS/HCC) Mixed hyperlipidemia documented in this encounter [facility] HealthcareEvaluation note* Diagnosis Type 2 diabetes mellitus [...] of the cervix documented in this encounter [facility] Healthcare[facility] note* Diagnosis Type 2 diabetes mellitus [...] hyperlipidemia Mixed hyperlipidemia documented in this encounter [facility] note* Diagnosis Type 2 diabetes mellitus [...] specified complication (HCC) Mixed hyperlipidemia Mixed hyperlipidemia Personal history of other colon polyps- Primary documented in this encounter [facility] Healthcare[facility] note* Diagnosis Type 2 diabetes mellitus [...] specified complication (HCC) Mixed hyperlipidemia Mixed hyperlipidemia Essential hypertension- Primary Unspecified essential hypertension Left foot pain Pain in soft tissues of limb Type 2 diabetes mellitus without complication, without long-term current use of insulin (HCC) Obesity (BMI 30-39.9) Environmental and seasonal allergies documented in this encounter [facility] HealthcareEvaluation noteNo assessment information availableZanesville City Hospital Work Phone: Evaluation note* Diagnosis Type 2 diabetes mellitus without [...] specified complication (HCC) Mixed hyperlipidemia Mixed hyperlipidemia Essential hypertension- Primary Unspecified essential hypertension Left foot pain Pain in soft tissues of limb Type 2 diabetes mellitus without complication, without long-term current use of insulin (HCC) Obesity (BMI 30-39.9) Environmental and seasonal allergies Adenomatous polyp of transverse colon- Primary Family history of colon cancer Family history of malignant neoplasm of gastrointestinal tract documented in this encounter [facility] note* Diagnosis Onset Date Resolution Status Admit Date HTN (hypertension) acuteOctober 2024 9:20amMixed hyperlipidemiaacuteOct2024 9:20am Type 2 diabetes mellitus with diabetic nephropathy, 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 July 11, 2025 9:20am [facility] Work Phone: Hospital Discharge instructions No data available for this section [facility] Discharge instructionsAmbulatory Orders* AMB POC Hgb A1C Time Frame: 07/11/25, Location: Determined By Patient [facility] Work Phone: Progress note No data available for this section [facility] CenterReason for referral (narrative)No reason for referral information availableZanesville City Hospital Work Phone: Discharge Instructions * Instructions* Fernandez Rios MD [...] your physician 11) Call your doctor at [phone] for an appointment (or follow up as [...] call OFFICE. The 24- hour phone is [phone] 13) If you are unable to contact [...] musculoskeletal symptoms referable to limbs Advance Directives Code StatusDate ActivatedDate InactivatedCommentsFull Code09/10/2020 11:28 PM 09/11/2020 6:33 PMFull Code09/10/2020 4:37 PM09/10/2020 11:28 PMNameRelationship Healthcare Agent RelationshipCommunicationCollege Hospital [facility] Decision Maker* Advance Directive Response Recorded Date/ Time Advance Directives No July 04, 2020 6:26am Summary Purpose Family History No Family History Records FoundNo Family History Records FoundNo Family History Records FoundNo Family History Records FoundNo Family History Records FoundNo Family History Records Found Chief Complaint and Reason for Visit Chief Complaint Admit Date colonoscopy polypectomy & clipping Augus t 2024 9:30am Chief Complaint Admit Date colonoscopy polypectomy & clipping Augus t 2024 9:30am 3M July 11, 2025 9 :20am Reason for Visit Admit Date HTN (hypertension) July 11, 2025 9 :20am Mixed hyperlipidemia July 11, 2025 9:20am Type 2 diabetes mellitus wit h diabetic nephropathy, without long-term curre July 11, 2025 9:20am Additional Source Comments Reason for Visit (unrecogniz ed section and content) ReasonCommentsBack PainStatusReasonSpecialtyDiagnoses / ProceduresReferred By ContactReferred To Contact Diagnoses Right leg weakness Weakness of right leg Fernandez Rios MD [address] [facility] [place] [address] [facility] ReasonCommentsMed RefillReasonOnset DateCommentsMed Pauyes614Reason CommentsHypertensionReasonCommentsFollow-po9xZflyovGurgvquaAllifzfjAyjzfu CommentsConsultColonoscopy- Last colonoscopy 2012, polyps found- no Family hx SpecialtyDiagnoses / ProceduresReferred By ContactReferred To ContactGeneral Surgery Diagnoses Encounter for screening for malignant neoplasm of colon Procedures ME OFFICE/OUTPATIENT EST PT MAY NOT REQ PHYS/QHP Juno Taylor MD [address] [facility] [address] [place] [address] Phone: tel: fax: Alex Teran, DO [address] [facility] [address] [place] [address] Phone: tel: fax: Referral IDStatusReasonStart DateExpiration DateVisits RequestedVisits [id number] Consult and Treat [id number] po colonoscopy Ordered Prescriptions (unrec ognized section and content) PrescriptionSigDispensedRefillsStart DateEnd Date senna (SENOKOT) 8.6 MG tablet Take 2 tablets by mouth 2 times daily 120 tablet 111 oxyCODONE-acetaminophen (PERCOCET) 5-325 MG per tablet Indications:Postoperative painTake 1 tablet by mouth every 6 hours as needed for Pain for up to 14 days. Intended supply: 7 days.Take lowest dose possible to manage pain 28 tablet cephALEXin (KEFLEX) 500 MG capsule Take 1 capsule by mouth 3 times daily for 7 days 21 capsule INFORMATION SOURCE (unrecogn ized section and content) DATE CREATED AUTHOR 09/13/2020 [facility] DATE CREATED AUTHOR AUTHOR'S ORGANIZ ATION 10/21/2021 [facility] [employer] DATE CREATED AUTHOR AUTHOR'S ORGANIZ ATION 06/02/2022 [facility] DATE CREATED AUTHOR AUTHOR'S ORGANIZ ATION 09/12/2022 [facility] DATE CREATED AUTHOR AUTHOR'S ORGANIZ ATION 05/10/2025 [facility] DATE CREATED AUTHOR AUTHOR'S ORGANIZ ATION 05/13/2025 [facility] Care Team (unrecognized sect ion and content) Team MemberRelationshipSpecialtyStart DateEnd Date Jose Powers MD PCP - GeneralFamily Hbendzxf73/28/23 Mela Daily NP [address] [place] [address] Nurse PractitionerFamily Gikpioqd79/28/23Team MemberRelationshipSpecialtyStart DateEnd Date Jose Powers MD [address] [place] [address] PCP - Generalmily Vhrjqluf55/28/23 Mela Daily NP [address] [address] PCP - [employer]12/21/23 Mela Daily NP [address] [place] [address] [facility]08/18/23Team MemberRelationshipSpecialtyStart DateEnd Date Jose Powers MD [address] [place] [address] PCP - [facility]08/18/23 Mela Daily NP [address] [place] [address] PCP - [employer]12/21/23 Mela Daily NP [address] [place] [address] Nurse Pract[facility]Ad[facility]08/18/23Team MemberRelationshipSpecialtyStart DateEnd Date Jose Powers MD [address] [place] [address] PCP - [facility]08/18/23 Mela Daily NP [address] [place] [address] PCP - [employer]12/21/23 Mela Daily NP [address] [place] [address] [facility] Mcdlzcuo44/28/23Team MemberRelationshipSpecialtyStart DateEnd Date Jose Powers MD [address] [place] [address] [facility] - [facility] Pokhfkuh96/28/23 Mela Daily NP [address] [place] [address] PCP - [employer]12/21/23 Mela Daily NP [address] [place] [address] Nurse Pract[facility]erAd[facility]08/18/23Team MemberRelationshipSpecialtyStart DateEnd Date Jose Powers MD [address] [place] [address] [facility] - [facility] Vlfintbq64/28/23 Mela Daily NP [address] [place] [address] PCP - [employer]12/21/23 Mela Daily NP [address] [place] [address] Nurse Pract[facility] Uwtakucg38/28/23Team MemberRelationshipSpecialtyStart DateEnd Date Jose Powers MD [address] [place] [address] [facility] - [facility] Vtwxorlx93/28/23 Mela Daily NP [address] [place] [address] PCP - [employer]12/21/23 Mela Daily NP [address] [place] [address] Nurse Pract[facility]erAd[facility]08/18/23Team MemberRelationshipSpecialtyStart DateEnd Date Jose Powers MD [address] [place] [address] PCP - [facility]08/18/23 Mela Daily NP [address] [place] [address] PCP - [employer]12/21/23 Mela Daily NP [address] [place] [address] Nurse PractitionerAd[facility]08/18/23Team MemberRelationshipSpecialtyStart DateEnd Date Jose Powers MD [address] [place] [address] PCP - [facility]Ad[facility]08/18/23 Mela Daily NP [address] [place] [address] PCP - [employer]12/21/23 Mela Daily NP [address] [place] [address] Nurse PractitionerAd[facility]08/18/23Te MemberRelationshipSpecialtyStart DateEnd Date Jose Powers MD [address] [place] [address] PCP - [facility]08/18/23 Mela Daily NP [address] [place] [address] PCP - [employer]12/21/23 Mela Daily NP [address] [place] [address] Nurse PractitionerAd[facility]08/18/23Te MemberRelationshipSpecialtyStart DateEnd Date Jose Powers MD [address] [place] [address] PCP - [facility]08/18/23 Mela Daily NP [address] [place] [address] PCP - [employer]12/21/23 Mela Daily NP [address] [place] [address] Nurse PractitionerAd[facility]08/18/23Team MemberRelationshipSpecialtyStart DateEnd Date Jose Powers MD [address] [place] [address] PCP - GeneralFamily Wkwrlcxy17/28/23 Mela Daily NP [address] [place] [address] PCP - [employer]12/21/23 Mela Daily NP [address] [place] [address] Nurse Pract[facility]erB[facility] Centerly Kytlfwcs33/28/23Team MemberRelationshipSpecialtyStart DateEnd Date Jose Powers MD [address] [place] [address] PCP - GeneralFamily Lapkxubk54/28/23 Mela Daily NP [address] [place] [address] PCP - [employer]12/21/23 Mela Daily NP [address] [place] [address] Nurse Practitionermily Ionfowse85/28/23Team MemberRelationshipSpecialtyStart DateEnd Date Jose Powers MD [address] [place] [address] PCP - GeneralFamily Chsjenbh34/28/23 Mela Daily NP [address] [place] [address] PCP - [employer]12/21/23 Mela Daily NP [address] [place] [address] Nurse Pract[facility]erAd[facility]08/18/23Team MemberRelationshipSpecialtyStart DateEnd Date Jose Powers MD [address] [place] [address] PCP - [facility]08/18/23 Mela Daily NP [address] [place] [address] PCP - [employer]12/21/23 Mela Daily NP [address] [place] [address] Nurse PractitionerAd[facility]08/18/23Team MemberRelationshipSpecialtyStart DateEnd Date Jose Powers MD [address] [place] [address] [facility] - [facility] Ajcognzx69/28/23 Mela Daily NP [address] [place] [address] PCP - [employer]12/21/23 Mela Daily NP [address] [place] [address] Nurse [facility] Epjfbsfj19/28/23Team MemberRelationshipSpecialtyStart DateEnd Date Jose Powers MD [address] [place] [address] PCP - [facility]08/18/23 Mela Daily NP [address] [place] [address] PCP - [employer]12/21/23 Mela Daily NP [address] [place] [address] Nurse Pract[facility]erAd[facility]08/18/23Team MemberRelationshipSpecialtyStart DateEnd Date Jose Powers MD [address] [place] [address] PCP - [facility]08/18/23 Mela Daily NP [address] [place] [address] PCP - [employer]12/21/23 Mela Daily NP [address] [place] [address] Nurse Pract[facility]erAd[facility]08/18/23 Team Status: Inactive Member Role Status Dates DO Kayla Florence Provider Active Start : April 27, 2025 End: April 27, 2025 Team Status: Active Member Role/Relationship Status Dates Mela Daily NP-C Primary Care Provider Active Team Status: Inactive Member Role/Relationship Status Dates Alex Teran DO Attending Provider Active Start : April 27, 2025 End: April 27, 2025 Team Status: Inactive Member Role/Relationship Status Dates Mela Daily NP-Perez Primary Care Provider Active Start: July 11, 2025 End: July 11, 2025RICHARD ReynaCAttending ProviderActiveStart: July 11, 2025 End: July 11, 2025Team MemberRelationshipSpecialtyStart DateEnd Date Jose Powers MD PCP - [facility]08/18/23 Mela Daily NP [address] [place] [address] PCP - [employer]12/21/23 Mela Daily NP [facility] Pract[facility]erAd[facility]08/18/23Team MemberRelationshipSpecialtyStart DateEnd Date Jose Powers MD PCP - [facility]08/18/23 Mela Daily NP [address] [place] [address] PCP - [employer]12/21/23 Mela Daily NP Nurse PractitionerAd[facility]08/18/23 Goals (unrecognized section and content) Goals may be documented in a n alternate section FOR RECORDS PERTAINING TO PATIENTS WHO ARE [...] BE BASED ON THE PRIMARY CLINICAL RECORDS. [employer] [facility]. provides no warranty or guarantee of the accuracy or completeness of information in this document.
[2025-08-21 12:50] LABS: Anion Gap 8.5; Blood Urea Nitrogen 6.0 mg/dL (7.0-18.0); Calcium 9.2 mg/dL (8.5-10.1); Carbon Dioxide 33.7 mmol/L (21.0-32.0); Chloride 102 mmol/L (98-107); Estimated GFR (African America >60 (>=60 mL/min/1.73m^2); Estimated GFR (Non-African Ame >60 (>=60 mL/min/1.73m^2); Glucose 296 mg/dL (74-106); Potassium 4.2 mmol/L (3.5-5.1); Sodium 140 mmol/L (136-145)
== END 2025-08-21 11:38 | disposition home or self-care (01) ==
PROVIDERS: PCP Nurse Practitioner; Visit Provider Nurse Practitioner
DX: E11.21 Type 2 diabetes mellitus with diabetic nephropathy (principal); I10 Essential (primary) hypertension
CPT/HCPCS: 36415; 80048